=== PATIENT | male | born 1945 | race Caucasian/White ===

== ENCOUNTER → 2018-05-14 12:09 | Outpatient (CLI) | payer MEDICARE, SELFPAY ==
[2018-05-14 13:52] LABS: Prostate Specific Antigen 0.617 ng/mL (0.10-4.00)
== END ==
PROVIDERS: PCP Family Medicine; Visit Provider Radiology Radiation Oncology
DX: C61 Malignant neoplasm of prostate (principal)
CPT/HCPCS: 36415; 84153

== ENCOUNTER → 2018-05-20 10:30 | Outpatient (CLI) | payer MEDICARE, SELFPAY ==
[2018-05-20 10:48] LABS: Hemoglobin 13.8 g/dL (13.5-17.5); Mean Corpuscular HGB Conc 35.3 % (30-36); Mean Corpuscular Hemoglobin 31.1 PG (26-34); Mean Corpuscular Volume 88.1 fL (80-100); Platelet Count 61 X10^3/uL (150-400); Red Blood Cell Count 4.43 X10^6/uL (4.5-5.9); Red Cell Distribution Width 13.9 % (11.6-14.8)
[2018-05-20 10:49] LABS: Add Manual Diff / Slide Review YES; White Blood Cell Count 1.5 X10^3/uL (4.5-11.0)
--- NOTE | 2018-05-20 11:05 | PC.NURSE ---
cv WBC 1.5 reported by Estevan in lab. Triage notified
[2018-05-20 11:08] LABS: Neutrophils Absolute Manual 840 /uL (3000-5900); Ovalocytes 1+; Tear Drop Cells 1+; Total Cells Counted 100
[2018-05-20 11:30] LABS: Alanine Aminotransferase 20 IU/L (21-72); Albumin 3.9 g/dL (3.5-5.0); Albumin Globulin Ratio 1.4 (1.0-2.8); Alkaline Phosphatase 52 U/L (38-126); Aspartate Aminotransferase 16 IU/L (17-59); BUN Creatinine Ratio 22.7 (6-22); Blood Urea Nitrogen 25 mg/dL (9-20); Calcium 9.1 mg/dL (8.4-10.2); Carbon Dioxide 32 mmol/L (22-32); Chloride 101 mmol/L (98-107); Estimated Glomerular Filt Rate > 60.0 mL/min (>60); Globulin 2.8 g/dL (1.7-4.1); Glucose 121 mg/dL (80-110); HEMOLYSIS < 15 (0-50); Lactate Dehydrogenase 377 U/L (313-618); Potassium 4.2 mmol/L (3.4-5.1); Sodium 143 mmol/L (137-145); Total Protein 6.7 g/dL (6.3-8.2)
--- NOTE | 2018-05-20 11:37 | PC.NURSE ---
Critical value WBC of 1.5 noted. Pt has appt with Dr Sanchez on 05/22. This WBC has been within range of his previous WBC's and part of the reason he will be evaluated by Dr Sanchez on .
== END ==
PROVIDERS: PCP Family Medicine; Visit Provider Internal Medicine Hematology & Oncology
DX: C91.40 Hairy cell leukemia not having achieved remission (principal)
CPT/HCPCS: 36415; 80053; 83615; 85025

== ENCOUNTER → 2018-06-05 10:25 | Outpatient (CLI) | payer MEDICARE, SELFPAY ==
[2018-06-05 11:11] LABS: Hematocrit 37.3 % (41-53); Mean Corpuscular HGB Conc 34.8 % (30-36); Mean Corpuscular Hemoglobin 31.1 PG (26-34); Mean Corpuscular Volume 89.4 fL (80-100); Platelet Count 64 X10^3/uL (150-400); Red Blood Cell Count 4.18 X10^6/uL (4.5-5.9); Red Cell Distribution Width 14.5 % (11.6-14.8)
[2018-06-05 11:17] LABS: Alanine Aminotransferase 24 IU/L (21-72); Albumin 3.9 g/dL (3.5-5.0); Albumin Globulin Ratio 1.6 (1.0-2.8); Alkaline Phosphatase 45 U/L (38-126); Aspartate Aminotransferase 15 IU/L (17-59); Bilirubin Total 0.6 mg/dL (0.2-1.3); Blood Urea Nitrogen 20 mg/dL (9-20); Calcium 9.1 mg/dL (8.4-10.2); Carbon Dioxide 32 mmol/L (22-32); Chloride 102 mmol/L (98-107); Estimated Glomerular Filt Rate > 60.0 mL/min (>60); Globulin 2.4 g/dL (1.7-4.1); Glucose 90 mg/dL (80-110); HEMOLYSIS < 15 (0-50); Potassium 3.9 mmol/L (3.4-5.1); Sodium 142 mmol/L (137-145); Total Protein 6.3 g/dL (6.3-8.2)
[2018-06-05 11:26] LABS: Add Manual Diff / Slide Review YES; White Blood Cell Count 1.5 X10^3/uL (4.5-11.0)
[2018-06-05 12:22] LABS: Folate > 20.0 ng/mL (2.76-20.0); Vitamin B12 362 pg/mL (239-931)
[2018-06-05 12:33] LABS: Neutrophils Absolute Manual 810 /uL (3000-5900); Total Cells Counted 100
[2018-06-05 12:34] LABS: RBC Morphology Normal Morphology
--- NOTE | 2018-06-05 14:52 | PC.NURSE ---
Critical WBC called from lab 1.5 .result given to health claims examiner RSL
--- NOTE | 2018-06-05 16:33 | PC.NURSE ---
After reviewing Dr Sanchez's last dictation pt was here for routine labs. He is currently to see Dr Rao on 06/12 for f/u. Currrently WBC is stable @ 1.5 with previous WBC dated 05/20. Anc is down from 840 to 810. Pt has been previously instructed on neutropenic procautions. No new orders at this time
== END ==
PROVIDERS: PCP Family Medicine; Visit Provider Internal Medicine Hematology & Oncology
DX: C91.40 Hairy cell leukemia not having achieved remission (principal)
CPT/HCPCS: 36415; 80053; 82607; 82746; 85025

== ENCOUNTER → 2018-06-16 11:03 | Outpatient (CLI) | payer MEDICARE, SELFPAY ==
[2018-06-16 11:26] LABS: Hematocrit 39.2 % (41-53); Hemoglobin 13.7 g/dL (13.5-17.5); Mean Corpuscular HGB Conc 34.9 % (30-36); Mean Corpuscular Hemoglobin 31.2 PG (26-34); Mean Corpuscular Volume 89.2 fL (80-100); Platelet Count 65 X10^3/uL (150-400); Red Blood Cell Count 4.39 X10^6/uL (4.5-5.9); Red Cell Distribution Width 14.1 % (11.6-14.8)
[2018-06-16 11:27] LABS: Add Manual Diff / Slide Review YES; White Blood Cell Count 1.5 X10^3/uL (4.5-11.0)
[2018-06-16 11:44] LABS: Morphology Comment Normal Morphology; Neutrophils Absolute Manual 840 /uL (3000-5900); Nucleated Red Blood Cells 4 #/Diff; Total Cells Counted 100
[2018-06-16 12:41] LABS: Vitamin B12 349 pg/mL (239-931)
--- NOTE | 2018-06-16 15:32 | PC.NURSE ---
Critical value WBC 1.5 called from lab.This is a stable value for patient -seeing MD on
[2018-06-23 01:41] LABS: Methylmalonic Acid 262 nmol/L (87-318)
== END ==
PROVIDERS: Internal Medicine Hematology & Oncology; PCP Family Medicine; Visit Provider Internal Medicine Hematology & Oncology
DX: C91.40 Hairy cell leukemia not having achieved remission (principal)
CPT/HCPCS: 36415; 82607; 83921; 85025

== ENCOUNTER → 2018-07-03 09:19 | Outpatient (CLI) | payer MEDICARE, SELFPAY ==
[2018-07-03 09:35] LABS: Hematocrit 38.8 % (41-53); Hemoglobin 13.8 g/dL (13.5-17.5); Mean Corpuscular HGB Conc 35.6 % (30-36); Mean Corpuscular Hemoglobin 31.1 PG (26-34); Mean Corpuscular Volume 87.2 fL (80-100); Platelet Count 79 X10^3/uL (150-400); Red Blood Cell Count 4.45 X10^6/uL (4.5-5.9); Red Cell Distribution Width 14.3 % (11.6-14.8)
[2018-07-03 09:36] LABS: Add Manual Diff / Slide Review YES; White Blood Cell Count 1.9 X10^3/uL (4.5-11.0)
[2018-07-03 09:45] LABS: BUN Creatinine Ratio 22.7 (6-22); Blood Urea Nitrogen 25 mg/dL (9-20); Calcium 9.6 mg/dL (8.4-10.2); Carbon Dioxide 32 mmol/L (22-32); Chloride 102 mmol/L (98-107); Estimated Glomerular Filt Rate > 60.0 mL/min (>60); Glucose 122 mg/dL (80-110); HEMOLYSIS < 15 (0-50); Potassium 3.7 mmol/L (3.4-5.1); Sodium 143 mmol/L (137-145); Uric Acid 5.6 mg/dL (3.5-8.5)
[2018-07-03 10:00] LABS: Morphology Comment Normal Morphology; Neutrophils Absolute Manual 1311 /uL (3000-5900); Total Cells Counted 100
== END ==
PROVIDERS: PCP Family Medicine; Visit Provider Internal Medicine Hematology & Oncology
DX: C91.40 Hairy cell leukemia not having achieved remission (principal)
CPT/HCPCS: 36415; 80048; 84550; 85025

== ENCOUNTER 2018-10-22 18:48 | Emergency (ER) | payer MEDICARE, SELFPAY ==
--- NOTE | 2018-10-22 19:00 | DI.CT.S_ITS ---
PROCEDURE: CT HEAD/BRAIN WO CON INDICATIONS: numbness right hand and head is fuzzy TECHNIQUE: Noncontrast 4.5 mm thick angled axial sections acquired from the foramen magnum to the vertex, with coronal and sagittal reformats. For radiation dose reduction, the following was used: automated exposure control, adjustment of mA and/or kV according to patient size. COMPARISON: [facility], CT, HEAD WITHOUT CONTRAST, 09/22/2017, 0:05. FINDINGS: Image quality: Limited by beam hardening artifact related to deep brain stimulator leads. CSF spaces: Basal cisterns are patent. No extra-axial fluid collections. The ventricles are symmetric in size and shape. Brain: No intracranial bleeds or masses. There is cerebral volume loss for age, with resultant ventricular and sulcal prominence. There are periventricular and deep white matter chronic small vessel ischemic changes. Bilateral thalamic stimulators are stable compared to 09/22/2017. There is intracranial internal carotid artery atherosclerosis. Skull and face: Calvarium and visualized facial bones appear intact, without suspicious lesions. Sinuses: Visualized sinuses and mastoids are clear. IMPRESSION: No acute intracranial disease process. Dictated by: Vanita Phan MD, PhD on 10/22/2018 at 19:37 Approved by: Vanita Phan MD, PhD on 10/22/2018 at 19:39
[2018-10-22 19:04] VITALS: BP 202/97; PULSE 86; RESP 20; TEMP 36; O2SAT 97; BMI 25.8
--- NOTE | 2018-10-22 19:08 | ED.NEUROSD ---
HPI - Neuro Symptoms/Deficit General Chief Complaint: Neuro Symptoms/Deficit Stated Complaint: numbness right hand and head is fuzzy Time Seen by Provider: 10/22/18 19:07 Source: patient Mode of arrival: ambulatory Limitations: no limitations History of Present Illness HPI Narrative: Patient is a 73-year-old male with a history of Parkinson's disease and also leukemia here for evaluation of what he describes as tingling on the back of his right hand and also a fuzzy feeling in his head. States that this has been going on throughout the day. No trauma. He does have a stimulator in his brain secondary to his Parkinson's disease. He does not take Parkinson's medications any longer secondary to the stimulator. He does have a history leukemia with issues with platelets in the past needing transfusions. He states his last transfusion was greater than 2 months ago. No other focal neuro deficits except for the tingling the back of his right hand which he states has resolved by the time of my evaluation. Related Data Home Medications Medication Instructions Recorded Confirmed carbidopa ER 50 mg-levodopa 200 mg 1 tab PO PRN PRN 04/08/18 10/09/18 tablet,extended release rutin 450 mg PO QAM 06/19/18 10/09/18 acetaminophen [Tylenol] 325 mg PO Q6H PRN 06/26/18 10/09/18 tamsulosin [Flomax] 0.8 mg PO DAILY 07/31/18 10/09/18 vitamins A,C,T-mtyd-itkvny 1 cap PO DAILY 08/28/18 10/09/18 [PreserVision AREDS] Allergies Allergy/AdvReac Type Severity Reaction Status Date / Time codeine [CODEINE] Allergy Mild NAUSEA Verified 06/26/18 10:00 Review of Systems Constitutional Denies fever(s), Denies headache(s), Denies lethargy, Denies malaise and Denies weakness Eyes Denies change in vision, Denies diplopia and Denies loss of vision ENT Ears, Nose, Mouth, and Throat: Denies vertigo, Denies dizziness, Denies headache(s), Denies disequilibrium and Denies sore throat Cardiovascular Denies chest pain, Denies syncope and Denies dyspnea Respiratory Denies dyspnea Gastrointestinal Gastrointestinal: Denies abdominal pain and Denies nausea Musculoskeletal Denies myalgias, Denies arthralgias and Reports tingling Integumentary/Breasts Denies lesions and Denies rash Neurologic Denies behavioral changes, Denies confusion, Denies vertigo, Denies dizziness, Denies syncope, Denies headache(s), Denies focal weakness, Denies loss of vision, Reports tingling, Denies paresthesias, Reports tremor(s), Denies disequilibrium and Denies weakness Comments: fuzzy sensation in his head Psychiatric Denies behavioral changes and Denies confusion Hematologic/Lymphatic Comments: not on anticoagulation [facility] Medical History Hairy cell leukemia (Acute) Parkinsons disease (Acute) Surgical History History of tonsillectomy Social History Smoking Status: Never smoker Exam Initial Vital Signs Initial Vital Signs: Vital Signs Temperature 96.8 F L 10/22/18 19:04 Pulse Rate 86 10/22/18 19:04 Respiratory Rate 20 10/22/18 19:04 Blood Pressure 202/97 H 10/22/18 19:04 Pulse Oximetry 97 10/22/18 19:04 Const General: cooperative, healthy appearing, comfortable, well developed, well groomed and No acute distress Orientation: alert, awake and oriented x3 HENMT Head: normal to inspection, normocephalic and atraumatic Eyes Pupils: PERRL EOM: EOM intact bilaterally Resp Effort & Inspection: normal respiratory effort Auscultation: clear to auscultation bilaterally Cardio Rate: regular rate Rhythm: regular rhythm GI Inspection: non-distended Palpation: soft Skin Lesions: no lesions Rashes: no rashes Neuro General: alert, awake and oriented x3 Cranial Nerves: CN's II-XI intact bilaterally Cognition: normal cognition Speech: speech normal Motor: muscle tone normal throughout Sensory Exam: no sensory deficits noted Other: no sensory deficits noted in his right hand. Has a resting tremor most noted in his right upper extremity Extrem General: normal to inspection and capillary refill normal Psych Appearance: grossly normal and well kempt Course Orders Ordered: ED Orders 10/22/18 19:00 CT head/brain wo con Stat 10/22/18 19:20 Complete Blood Count AUTO DIFF Stat Comprehensive Metabolic Panel Stat Lipase Stat Partial Thromboplastin Time Stat Prothrombin Time INR Stat Vital Signs - 8 hr 10/22/18 19:04 10/22/18 21:16 Temperature 96.8 F L Pulse Rate 86 84 Respiratory Rate 20 18 Blood Pressure 202/97 H 180/90 H Pulse Oximetry 97 97 MDM - Neuro Symptoms/Deficit Lab Data Attestation: I reviewed the patient's lab results. Result diagrams: 10/22/18 19:20 10/22/18 19:20 Lab Results 10/22/18 10/22/18 10/22/18 Range/Units 19:20 19:20 19:20 WBC 4.2 L (4.5-11.0) X10^3/uL RBC 4.58 (4.5-5.9) X10^6/uL Hgb 13.8 (13.5-17.5) g/dL Hct 39.2 L (41-53) % MCV 85.5 (80-100) fL MCH 30.2 (26-34) PG MCHC 35.3 (30-36) % RDW 13.2 (11.6-14.8) % Plt Count 116 L (150-400) X10^3/uL Neut % (Auto) 69.9 (50-75) % Lymph % (Auto) 17.3 L (25-40) % [place] % (Auto) 8.5 (3-14) % Eos % (Auto) 3.8 (2-4) % Baso % (Auto) 0.5 (0-2) % Neut # (Auto) 3000 (7863-9382) /uL PT 11.7 (10.1-12.7) SECONDS INR 1.1 (0.9-1.3) APTT 29 (26.4-36.2) SECONDS Sodium 143 (137-145) mmol/L Potassium 4.4 (3.4-5.1) mmol/L Chloride 103 (98-107) mmol/L Carbon Dioxide 31 (22-32) mmol/L BUN 25 H (9-20) mg/dL Creatinine 1.00 (0.66-1.25) mg/dL Estimated GFR > 60.0 (>60) mL/min BUN/Creatinine Ratio 25.0 H (6-22) Glucose 98 (80-110) mg/dL Calcium 9.4 (8.4-10.2) mg/dL Total Bilirubin 0.3 (0.2-1.3) mg/dL AST 19 (17-59) IU/L ALT 25 (21-72) IU/L Alkaline Phosphatase 52 (38-126) U/L Total Protein 6.7 (6.3-8.2) g/dL Albumin 4.2 (3.5-5.0) g/dL Globulin 2.5 (1.7-4.1) g/dL Albumin/Globulin Ratio 1.7 (1.0-2.8) Lipase (23-300) U/L // Range/Units 19:20 WBC (4.5-11.0) X10^3/uL RBC (4.5-5.9) X10^6/uL Hgb (13.5-17.5) g/dL Hct (41-53) % MCV (80-100) fL MCH (26-34) PG MCHC (30-36) % RDW (11.6-14.8) % Plt Count (150-400) X10^3/uL Neut % (Auto) (50-75) % Lymph % (Auto) (25-40) % [place] % (Auto) (3-14) % Eos % (Auto) (2-4) % Baso % (Auto) (0-2) % Neut # (Auto) (0376-1647) /uL PT (10.1-12.7) SECONDS INR (0.9-1.3) APTT (26.4-36.2) SECONDS Sodium (137-145) mmol/L Potassium (3.4-5.1) mmol/L Chloride (98-107) mmol/L Carbon Dioxide (22-32) mmol/L BUN (9-20) mg/dL Creatinine (0.66-1.25) mg/dL Estimated GFR (>60) mL/min BUN/Creatinine Ratio (6-22) Glucose (80-110) mg/dL Calcium (8.4-10.2) mg/dL Total Bilirubin (0.2-1.3) mg/dL AST (17-59) IU/L ALT (21-72) IU/L Alkaline Phosphatase (38-126) U/L Total Protein (6.3-8.2) g/dL Albumin (3.5-5.0) g/dL Globulin (1.7-4.1) g/dL Albumin/Globulin Ratio (1.0-2.8) Lipase 80 (23-300) U/L MDM Narrative Medical decision making narrative: patient reports a improvement/resolution of his symptoms prior to and during his stay here in the emergency department. Has his baseline neurologic issues with regard to the Parkinson's disease and tremor most noted in his right upper extremity. His head CT is unremarkable labs unremarkable. Had a focal tingling in the back of his right hand. Low suspicion for CVA or TIA. Discussed all this with the patient and his were at bedside. We did discuss return precautions. hold on further workup for now. he and his both expressed understanding and agreement with plan Discharge Plan Departure Patient Disposition: Home Clinical Impression: Hand paresthesia Discharge Date/Time: 10/22/18 21:17 Interventions: ED Discharge Assessment Last Done: 10/22/18 21:16 Instructions: DI for Numbness/tingling Activity Restrictions/Additional Instructions: keep all of your scheduled medical appointments. Return to the emergency department for any new or worsening symptoms Prescriptions: No Action carbidopa-levodopa 50-200 mg tablet extended release 1 tab PO PRN PRN (Reason: unknown) RF: 0 rutin 500 mg Tablet 450 mg PO QAM RF: 0 acetaminophen [Tylenol] 325 mg Tablet 325 mg PO Q6H PRN (Reason: Pain (Scale Score 1-3)) RF: 0 tamsulosin [Flomax] 0.4 mg capsule 0.8 mg PO DAILY RF: 0 vitamins A,C,U-ulwy-cawhnr [PreserVision AREDS] 14,320-226-200 [id number] Capsule 1 cap PO DAILY RF: 0
[2018-10-22 19:31] LABS: Add Manual Diff / Slide Review NO; Basophils Percent Auto 0.5 % (0-2); Eosinophils Percent Auto 3.8 % (2-4); Hematocrit 39.2 % (41-53); Hemoglobin 13.8 g/dL (13.5-17.5); Lymphocytes Percent Auto 17.3 % (25-40); Mean Corpuscular HGB Conc 35.3 % (30-36); Mean Corpuscular Hemoglobin 30.2 PG (26-34); Mean Corpuscular Volume 85.5 fL (80-100); Monocytes Percent Auto 8.5 % (3-14); Neutrophils Absolute Auto 3000 /uL (3000-5900); Neutrophils Percent Auto 69.9 % (50-75); Platelet Count 116 X10^3/uL (150-400); Red Blood Cell Count 4.58 X10^6/uL (4.5-5.9); Red Cell Distribution Width 13.2 % (11.6-14.8); White Blood Cell Count 4.2 X10^3/uL (4.5-11.0)
--- NOTE | 2018-10-22 19:35 | PC.NURSE ---
pt at rest, seated in chair, reports rt dorsal hand numbness, this resolved withing a few minutes followed by pt describing vague odd in the head feeling, like my brain was numb, he reports this remains but has improved since his arrival to ED. MD Law bedside at time of exam, negative FAST, NIH 0 per provider
[2018-10-22 19:38] LABS: INR 1.1 (0.9-1.3); Prothrombin Time 11.7 SECONDS (10.1-12.7)
[2018-10-22 19:40] LABS: Lipase 80 U/L (23-300); PTT Partial Thromboplastin Tim 29 SECONDS (26.4-36.2)
[2018-10-22 19:42] LABS: Alanine Aminotransferase 25 IU/L (21-72); Albumin 4.2 g/dL (3.5-5.0); Albumin Globulin Ratio 1.7 (1.0-2.8); Alkaline Phosphatase 52 U/L (38-126); Aspartate Aminotransferase 19 IU/L (17-59); Bilirubin Total 0.3 mg/dL (0.2-1.3); Blood Urea Nitrogen 25 mg/dL (9-20); Calcium 9.4 mg/dL (8.4-10.2); Carbon Dioxide 31 mmol/L (22-32); Chloride 103 mmol/L (98-107); Estimated Glomerular Filt Rate > 60.0 mL/min (>60); Globulin 2.5 g/dL (1.7-4.1); Glucose 98 mg/dL (80-110); HEMOLYSIS < 15 (0-50); Potassium 4.4 mmol/L (3.4-5.1); Sodium 143 mmol/L (137-145); Total Protein 6.7 g/dL (6.3-8.2)
[2018-10-22 21:16] VITALS: BP 180/90; PULSE 84; RESP 18; O2SAT 97
== END 2018-10-22 21:17 | disposition home or self-care (01) ==
PROVIDERS: Emergency Provider Emergency Medicine; Family Provider Family Medicine; PCP Family Medicine
DX: R20.2 Paresthesia of skin (principal); G20 Parkinson's disease
CPT/HCPCS: 36591; 70450; 80053; 83690; 85025; 85610; 85730; 99282; 99284; 99291

== ENCOUNTER 2018-11-09 03:46 | Emergency (ER) | payer MEDICARE, OTHER, SELFPAY ==
[2018-11-09 04:02] VITALS: BP 179/95; PULSE 84; RESP 18; TEMP 36.3; O2SAT 96
--- NOTE | 2018-11-09 04:24 | ED.MALEGU ---
HPI - Male Genitourinary General Chief complaint: Urogenital-Male Stated complaint: CATHETER IS BLOCKED Time Seen by Provider: 11/09/18 04:24 Source: patient Mode of arrival: ambulatory Limitations: no limitations History of Present Illness HPI Narrative: The patient underwent a TURP last week, he still has a Elaine and leg bag in place. He has not experienced abdominal or general discomfort. He is concerned that there is significantly less urine in the Elaine than he is used to seeing. There is no blood in the urine, or at the meatus. He denies nausea or vomiting. He had constipation, this is now resolved. He complains of no abdominal discomfort. He has had no fever or chills. Related Data Home Medications Medication Instructions Recorded Confirmed carbidopa ER 50 mg-levodopa 200 mg 1 tab PO PRN PRN 04/08/18 11/07/18 tablet,extended release rutin 450 mg PO QAM 06/19/18 11/07/18 acetaminophen [Tylenol] 325 mg PO Q6H PRN 06/26/18 11/07/18 tamsulosin [Flomax] 0.8 mg PO DAILY 07/31/18 11/07/18 vitamins A,C,B-tbxe-xmwcir 1 cap PO DAILY 08/28/18 11/07/18 [PreserVision AREDS] hydrocodone-acetaminophen 11/09/18 Allergies Allergy/AdvReac Type Severity Reaction Status Date / Time codeine [CODEINE] Allergy Mild NAUSEA Verified 11/09/18 04:06 Review of Systems Constitutional Denies chills, Denies fever(s) and Denies frequent falls ENT Ears, Nose, Mouth, and Throat: Denies dizziness Gastrointestinal Gastrointestinal: Denies abdominal pain, Denies bloating, Denies change in bowel habits, Reports constipation, Denies diarrhea, Denies nausea and Denies vomiting Genitourinary Reports as per HPI, Denies hematuria, Denies penile discharge, Denies scrotal swelling and Denies testicular pain Musculoskeletal Denies numbness and Reports other ( No swelling) Integumentary/Breasts Denies erythema, Denies rash and Reports other ( irritation to the urethral meatus, associated with the Elaine.) Neurologic Denies behavioral changes, Denies confusion, Denies dizziness, Denies frequent falls and Denies numbness Psychiatric Denies behavioral changes and Denies confusion [facility] Medical History Hairy cell leukemia (Acute) Parkinsons disease (Acute) Surgical History S/P TURP (Acute) History of tonsillectomy Social History Smoking Status: Never smoker Exam Initial Vital Signs Initial Vital Signs: Vital Signs Temperature 97.4 F L 11/09/18 04:02 Pulse Rate 84 11/09/18 04:02 Respiratory Rate 18 11/09/18 04:02 Blood Pressure 179/95 H 11/09/18 04:02 Pulse Oximetry 96 11/09/18 04:02 Const General: cooperative and well developed Nutritional Appearance: well nourished Orientation: alert, awake, oriented x3 and not confused GI Inspection: non-distended Palpation: soft, no hepatosplenomegaly, No guarding, No pulsatile mass and No tender Auscultation: normal bowel sounds Penis: normal penis Meatus: no meatla discharge Testes: normal Skin General: no rashes or lesions noted and No petechiae Neuro General: alert, oriented x3 and no focal motor deficits Speech: speech normal Course Course Narrative: The patient only had a small amount of clear yellow fluid in the Elaine bag upon arrival. Bladder scan revealed 105 mL of urine in the bladder. The Elaine was irrigated by the patient's nurse. There seems to have been a proximal obstruction, after irrigation there has been increased urine flow. Orders Ordered: ED Orders 11/09/18 04:45 Urine Culture Stat Urine Microscopic Stat Vital Signs - 8 hr 11/09/18 04:02 Temperature 97.4 F L Pulse Rate 84 Respiratory Rate 18 Blood Pressure 179/95 H Pulse Oximetry 96 MDM - Male Genitourinary Medical Records Attestation: I reviewed the patient's medical records. Lab Data Attestation: I reviewed the patient's lab results. Lab Results 11/09/18 Range/Units 04:45 Urine RBC 30-100/hpf H (0-5/HPF) Urine WBC 1-5/hpf (0-5/HPF) Ur Squamous Epith Cells 0-1 /hpf Calcium Oxalate Crystal Occasional H (None) Urine Bacteria Few (2-10) H (None) Urine Mucus 1+ H (Negative) Ur Culture Indicated? Specimen cultured Micro UA Comment Not Reportable Urine Dip Bedside Urine Glucose Negative Bedside Urine Bilirubin - Negative Bedside Urine Ketone - Negative Urine Specific [place] 1.030 Bedside Urine Occult Blood +++ Bedside Urine Protein ++ 100 Bedside Urine Urobilinogen - Negative Bedside Urine Nitrite - Negative Bedside Urine Leukocytes +/- 15 Esterase Discharge Plan Departure Patient Disposition: Home Clinical Impression: Complication, blocked Elaine catheter Discharge Date/Time: 11/09/18 05:33 Interventions: ED Discharge Assessment Last Done: 11/09/18 05:32 Instructions: How to Care for Your Elaine Catheter -- Male Activity Restrictions/Additional Instructions: Increase your water consumption. Return here as necessary. Follow up with your surgeon next week as scheduled. Prescriptions: No Action carbidopa-levodopa 50-200 mg tablet extended release 1 tab PO PRN PRN (Reason: unknown) RF: 0 rutin 500 mg Tablet 450 mg PO QAM RF: 0 acetaminophen [Tylenol] 325 mg Tablet 325 mg PO Q6H PRN (Reason: Pain (Scale Score 1-3)) RF: 0 tamsulosin [Flomax] 0.4 mg capsule 0.8 mg PO DAILY RF: 0 vitamins A,C,X-xsqv-emfcxh [PreserVision AREDS] 14,320-226-200 [id number]-vm-[id number] Capsule 1 cap PO DAILY RF: 0 hydrocodone-acetaminophen 5-325 mg tablet RF: 0
--- NOTE | 2018-11-09 04:27 | ED_ITS ---
HPI - Male Genitourinary General Chief complaint: Urogenital-Male Stated complaint: CATHETER IS BLOCKED Time Seen by Provider: 11/09/18 04:24 Source: patient Mode of arrival: ambulatory Limitations: no limitations History of Present Illness HPI Narrative: The patient underwent a TURP last week, he still has a Elaine and leg bag in place. He has not experienced abdominal or general discomfort. He is concerned that there is significantly less urine in the Elaine than he is used to seeing. There is no blood in the urine, or at the meatus. He denies nausea or vomiting. He had constipation, this is now resolved. He complains of no abdominal discomfort. He has had no fever or chills. Related Data Home Medications Medication Instructions Recorded Confirmed carbidopa ER 50 mg-levodopa 200 mg 1 tab PO PRN PRN 04/08/18 11/07/18 tablet,extended release rutin 450 mg PO QAM 06/19/18 11/07/18 acetaminophen [Tylenol] 325 mg PO Q6H PRN 06/26/18 11/07/18 tamsulosin [Flomax] 0.8 mg PO DAILY 07/31/18 11/07/18 vitamins A,C,F-cqpd-pgiyhf 1 cap PO DAILY 08/28/18 11/07/18 [PreserVision AREDS] hydrocodone-acetaminophen 11/09/18 Allergies Allergy/AdvReac Type Severity Reaction Status Date / Time codeine [CODEINE] Allergy Mild NAUSEA Verified 11/09/18 04:06 Review of Systems Constitutional Denies chills, Denies fever(s) and Denies frequent falls ENT Ears, Nose, Mouth, and Throat: Denies dizziness Gastrointestinal Gastrointestinal: Denies abdominal pain, Denies bloating, Denies change in bowel habits, Reports constipation, Denies diarrhea, Denies nausea and Denies vomiting Genitourinary Reports as per HPI, Denies hematuria, Denies penile discharge, Denies scrotal swelling and Denies testicular pain Musculoskeletal Denies numbness and Reports other ( No swelling) Integumentary/Breasts Denies erythema, Denies rash and Reports other ( irritation to the urethral meatus, associated with the Elaine.) Neurologic Denies behavioral changes, Denies confusion, Denies dizziness, Denies frequent falls and Denies numbness Psychiatric Denies behavioral changes and Denies confusion [facility] Medical History Hairy cell leukemia (Acute) Parkinsons disease (Acute) Surgical History S/P TURP (Acute) History of tonsillectomy Social History Smoking Status: Never smoker Exam Initial Vital Signs Initial Vital Signs: Vital Signs Temperature 97.4 F L 11/09/18 04:02 Pulse Rate 84 11/09/18 04:02 Respiratory Rate 18 11/09/18 04:02 Blood Pressure 179/95 H 11/09/18 04:02 Pulse Oximetry 96 11/09/18 04:02 Const General: cooperative and well developed Nutritional Appearance: well nourished Orientation: alert, awake, oriented x3 and not confused GI Inspection: non-distended Palpation: soft, no hepatosplenomegaly, No guarding, No pulsatile mass and No tender Auscultation: normal bowel sounds Penis: normal penis Meatus: no meatla discharge Testes: normal Skin General: no rashes or lesions noted and No petechiae Neuro General: alert, oriented x3 and no focal motor deficits Speech: speech normal Course Course Narrative: The patient only had a small amount of clear yellow fluid in the Elaine bag upon arrival. Bladder scan revealed 105 mL of urine in the bladder. The Elaine was irrigated by the patient's nurse. There seems to have been a proximal obstruction, after irrigation there has been increased urine flow. Orders Ordered: ED Orders 11/09/18 04:45 Urine Culture Stat Urine Microscopic Stat Vital Signs - 8 hr 11/09/18 04:02 Temperature 97.4 F L Pulse Rate 84 Respiratory Rate 18 Blood Pressure 179/95 H Pulse Oximetry 96 MDM - Male Genitourinary Medical Records Attestation: I reviewed the patient's medical records. Lab Data Attestation: I reviewed the patient's lab results. Lab Results 11/09/18 Range/Units 04:45 Urine RBC 30-100/hpf H (0-5/HPF) Urine WBC 1-5/hpf (0-5/HPF) Ur Squamous Epith Cells 0-1 /hpf Calcium Oxalate Crystal Occasional H (None) Urine Bacteria Few (2-10) H (None) Urine Mucus 1+ H (Negative) Ur Culture Indicated? Specimen cultured Micro UA Comment Not Reportable Urine Dip Bedside Urine Glucose Negative Bedside Urine Bilirubin - Negative Bedside Urine Ketone - Negative Urine Specific [place] 1.030 Bedside Urine Occult Blood +++ Bedside Urine Protein ++ 100 Bedside Urine Urobilinogen - Negative Bedside Urine Nitrite - Negative Bedside Urine Leukocytes +/- 15 Esterase Discharge Plan Departure Patient Disposition: Home Clinical Impression: Complication, blocked Elaine catheter Discharge Date/Time: 11/09/18 05:33 Interventions: ED Discharge Assessment Last Done: 11/09/18 05:32 Instructions: How to Care for Your Elaine Catheter -- Male Activity Restrictions/Additional Instructions: Increase your water consumption. Return here as necessary. Follow up with your surgeon next week as scheduled. Prescriptions: No Action carbidopa-levodopa 50-200 mg tablet extended release 1 tab PO PRN PRN (Reason: unknown) RF: 0 rutin 500 mg Tablet 450 mg PO QAM RF: 0 acetaminophen [Tylenol] 325 mg Tablet 325 mg PO Q6H PRN (Reason: Pain (Scale Score 1-3)) RF: 0 tamsulosin [Flomax] 0.4 mg capsule 0.8 mg PO DAILY RF: 0 vitamins A,C,W-qvdm-qwhflh [PreserVision AREDS] 14,320-226-200 [id number]-[id number]-[id number] Capsule 1 cap PO DAILY RF: 0 hydrocodone-acetaminophen 5-325 mg tablet RF: 0
--- NOTE | 2018-11-09 05:02 | PC.NURSE ---
PT HAD TURP ON SATURDAY. SINCE THEN HE HAS NOTICED A DECREASING URINE OUTPUT IN NDIAYE BAG. PT WAS CONCERNED THERE WAS A BLOCKAGE. 112ML NOTED ON BLADDER SCANNER. PER ROOR THIS NURSE INSTILLED 50ML IN NDIAYE AND 50 ML RETURNED. PT STATED HE FELT THE SENSATION OF SOMETHING IN MY BLADDER WHEN INFUSING STERILE WATER. NDIAYE APPEARS TO BE INTACT. URINE SAMPLE SENT TO LAB FOR UA. PT DENIES ANY BLADDER DISCOMFORT. PT INSTRUCTED TO INCREASE FLUID INTAKE.
[2018-11-09 05:10] LABS: Bacteria Urine Few (2-10); Calcium Oxalate Crystals Urine Occasional; RBC Urine 30-100/HPF (0-5/HPF); Squamous Epithelial Cell Urine 0-1 /HPF; WBC Urine 1-5/HPF (0-5/HPF)
[2018-11-09 05:11] LABS: Culture Indicated Urine Specimen Cultured; Mucus Urine 1+ (Negative)
[2018-11-09 05:32] VITALS: BP 155/85; PULSE 80; RESP 14; O2SAT 99
== END 2018-11-09 05:33 | disposition home or self-care (01) ==
PROVIDERS: Emergency Provider Emergency Medicine; Family Provider Family Medicine; PCP Family Medicine
DX: T83.091A Other mechanical complication of indwelling urethral catheter, initial encounter (principal)
CPT/HCPCS: 51798; 81003; 81015; 87086

== ENCOUNTER 2018-11-09 19:43 | Emergency (ER) | payer MEDICARE, OTHER, SELFPAY ==
--- NOTE | 2018-11-09 19:56 | ED_ITS ---
HPI - Male Genitourinary <NANCY Griffith - Last Filed: 11/09/18 22:29> General Chief complaint: Urogenital-Male Stated complaint: Cath not draining Time Seen by Provider: 11/09/18 19:53 Source: patient Mode of arrival: ambulatory Limitations: no limitations History of Present Illness HPI Narrative: 73-year-old male with history of prostate cancer that is a nonsmoker recently had a TURP procedure completed here due to complaint that he does not the Elaine catheter that he currently has along with his leg bag is draining well. He was seen for this earlier today for same symptoms. The catheter at that time was irrigated and was draining well no signs of urinary tract infection. He states that he also feels same symptoms as he had earlier today where he does not feel use making as much urine as he normally does. He does state that he saw a small blood clot earlier today. He denies having other than the blood clot blood in his urine. He denies any flank pain. No nausea vomiting no fevers or chills he denies any abdominal pain. Related Data Home Medications Medication Instructions Recorded Confirmed carbidopa ER 50 mg-levodopa 200 mg 1 tab PO PRN PRN 04/08/18 11/07/18 tablet,extended release rutin 450 mg PO QAM 06/19/18 11/07/18 acetaminophen [Tylenol] 325 mg PO Q6H PRN 06/26/18 11/07/18 tamsulosin [Flomax] 0.8 mg PO DAILY 07/31/18 11/07/18 vitamins A,C,T-snsk-wnxesb 1 cap PO DAILY 08/28/18 11/07/18 [PreserVision AREDS] hydrocodone-acetaminophen 11/09/18 Allergies Allergy/AdvReac Type Severity Reaction Status Date / Time codeine [CODEINE] Allergy Mild NAUSEA Verified 11/09/18 04:06 Review of Systems <NANCY Griffith - Last Filed: 11/09/18 22:29> Constitutional Denies chills, Denies fever(s), Denies lethargy and Denies weakness Eyes Denies change in vision, Denies eye discharge, Denies irritation and Denies loss of vision ENT Ears, Nose, Mouth, and Throat: Denies change in voice, Denies neck pain and Denies sore throat Cardiovascular Denies chest pain, Denies irregular heart rhythm, Denies lightheadedness, Denies palpitations, Denies dyspnea, Denies dyspnea on exertion and Denies orthopnea Respiratory Denies cough, Denies dyspnea, Denies dyspnea on exertion and Denies wheezing Gastrointestinal Gastrointestinal: Denies abdominal pain, Denies change in bowel habits, Denies diarrhea, Denies nausea and Denies vomiting Genitourinary Comments: Concern that Elaine catheter is not draining Musculoskeletal Denies neck pain Integumentary/Breasts Denies pruritus, Denies erythema, Denies rash and Denies wounds Neurologic Denies confusion, Denies loss of vision and Denies weakness Psychiatric Denies anxiety, Denies confusion, Denies depression, Denies homicidal ideation and Denies suicidal ideation Endocrine Denies palpitations Hematologic/Lymphatic Denies easy bruising Allergic/Immunologic Denies wheezing Exam <NANCY Griffith - Last Filed: 11/09/18 22:29> Initial Vital Signs Initial Vital Signs: Vital Signs Temperature 97.8 F 11/09/18 19:59 Pulse Rate 75 11/09/18 19:59 Respiratory Rate 18 11/09/18 19:59 Blood Pressure 195/98 H 11/09/18 19:59 Pulse Oximetry 97 11/09/18 19:59 Const General: cooperative and well developed Nutritional Appearance: well nourished Orientation: alert, awake, oriented x3 and not confused [facility] Mouth: oral mucosae normal and moist mucous membranes Eyes Conjunctivae: conjunctivae normal Sclera: sclerae normal Pupils: PERRL EOM: EOM intact bilaterally Resp Effort & Inspection: normal respiratory effort, able to speak in complete sentences, no respiratory distress and no use of accessory muscles Auscultation: clear to auscultation bilaterally, no rales, no rhonchi and no wheezes Cardio Rate: regular rate Rhythm: regular rhythm Heart Sounds: no click, no gallops, no murmurs and no rubs Pulses: normal peripheral pulses GI Inspection: non-distended Palpation: soft, no hepatosplenomegaly, No guarding, No pulsatile mass and No tender Auscultation: normal bowel sounds General: No CVA tenderness Penis: normal penis Meatus: meatus normal Other: Elaine catheter draining clear yellow urine. Skin General: no rashes or lesions noted, No jaundice and No petechiae Neuro General: alert, oriented x3, gait normal and no focal motor deficits Speech: speech normal <Julio Sanchez MD - Last Filed: 11/10/18 00:35> Initial Vital Signs Initial Vital Signs: Vital Signs Temperature 97.8 F 11/09/18 19:59 Pulse Rate 75 11/09/18 19:59 Respiratory Rate 18 11/09/18 19:59 Blood Pressure 195/98 H 11/09/18 19:59 Pulse Oximetry 97 11/09/18 19:59 Course <NANCY Griffith - Last Filed: 11/09/18 22:29> Vital Signs - 8 hr 11/09/18 19:59 11/09/18 20:34 Temperature 97.8 F Pulse Rate 75 77 Respiratory Rate 18 18 Blood Pressure 195/98 H Blood Pressure [Right Arm] 175/82 H Pulse Oximetry 97 97 <Julio Sanchez MD - Last Filed: 11/10/18 00:35> Vital Signs - 8 hr 11/09/18 19:59 11/09/18 20:34 Temperature 97.8 F Pulse Rate 75 77 Respiratory Rate 18 18 Blood Pressure 195/98 H Blood Pressure [Right Arm] 175/82 H Pulse Oximetry 97 97 MDM - Male Genitourinary <NANCY Griffith - Last Filed: 11/09/18 22:29> MDM Narrative Medical decision making narrative: Elaine catheter was irrigated and draining well. Bladder scan shows 46 mL in the bladder. Patient reassured that Elaine catheter is draining well. He has instructed to drink plenty of fluids to keep his urine non concentrated. Follow up with Urology in the next few days as scheduled for re-evaluation. For any worsening symptoms return to the emergency room. Discharge Plan Departure Patient Disposition: Home Clinical Impression: Complication, blocked Elaine catheter Discharge Date/Time: 11/09/18 20:59 Interventions: ED Discharge Assessment Last Done: 11/09/18 20:57 Instructions: How to Care for Your Elaine Catheter -- Male Activity Restrictions/Additional Instructions: Elaine catheter was irrigated and is draining well. Bladder scan shows only 46 mL of fluid inside her bladder indicating that the Elaine catheter is draining well. Drink plenty of fluids to ensure that you are flushing the bladder out and also keep in the urine unconcentrated. Your blood pressure was elevated this evening and also over the last few visits. Recommend checking her blood pressure daily and maintaining a log of the results and bringing this results to her primary care provider for further evaluation for hypertension. Follow up with Urology next couple days as scheduled for re-evaluation. For any worsening symptoms return emergency room. Prescriptions: No Action carbidopa-levodopa 50-200 mg tablet extended release 1 tab PO PRN PRN (Reason: unknown) RF: 0 rutin 500 mg Tablet 450 mg PO QAM RF: 0 acetaminophen [Tylenol] 325 mg Tablet 325 mg PO Q6H PRN (Reason: Pain (Scale Score 1-3)) RF: 0 tamsulosin [Flomax] 0.4 mg capsule 0.8 mg PO DAILY RF: 0 vitamins A,C,H-nluq-eariei [PreserVision AREDS] [id number],320-226-200 [id number] Capsule 1 cap PO DAILY RF: 0 hydrocodone-acetaminophen 5-325 mg tablet RF: 0 Referrals: Layton Kaiser MD [Primary Care Provider] - <Julio Sanchez MD - Last Filed: 11/10/18 00:35> Sign Out Provider Sign Out Attestation: I was present in the ER at the time this patient' s evaluation. I was available for verbal consultation or to see the patient directly if required. I agree with the assessment and treatment plan.
[2018-11-09 19:59] VITALS: BP 195/98; PULSE 75; RESP 18; TEMP 36.6; O2SAT 97
--- NOTE | 2018-11-09 20:15 | PC.NURSE ---
Emptied urine from catheter. Had patient stand. Urine draining in catheter.
--- NOTE | 2018-11-09 20:27 | PC.NURSE ---
Flushed catheter with 60ml of normal saline. No resistance with flushing
[2018-11-09 20:34] VITALS: BP 175/82; PULSE 77; RESP 18; O2SAT 97
== END 2018-11-09 20:59 | disposition home or self-care (01) ==
PROVIDERS: Emergency Provider Nurse Practitioner Family; Family Provider Family Medicine; PCP Family Medicine
DX: T83.091A Other mechanical complication of indwelling urethral catheter, initial encounter (principal)
CPT/HCPCS: 51798; 81003; 81015; 87086; 99283

== ENCOUNTER 2019-02-12 14:32 | Emergency (ER) | payer MEDICARE, OTHER, SELFPAY ==
[2019-02-12 14:40] VITALS: BP 175/88; PULSE 72; RESP 20; TEMP 36.5; O2SAT 98; BMI 25.2
--- NOTE | 2019-02-12 14:43 | DI.RAD.S_ITS ---
PROCEDURE: XR CHEST 1V INDICATIONS: cough TECHNIQUE: One view of the chest was acquired. COMPARISON: [facility], , CHEST 1 VIEW, 12/04/2017, 11:34. FINDINGS: Surgical changes and devices: Neural stimulator with a stable. Lungs and pleura: Lungs are clear. No pleural effusions or pneumothorax. Mediastinum: Mediastinal contours appear normal. Heart size is normal. Bones and chest wall: No suspicious bony lesions. Overlying soft tissues appear unremarkable. IMPRESSION: No acute cardiopulmonary disease process. Dictated by: Vanita Phan MD, PhD on 02/12/2019 at 15:03 Approved by: Vanita Phan MD, PhD on 02/12/2019 at 15:03
[2019-02-12] MEDS: SODIUM CHLORIDE 0.9% 1,000 ML 150 ML IV (14:58)
[2019-02-12 14:59] LABS: Add Manual Diff / Slide Review NO; Basophils Absolute Auto 0 /uL (0-100); Basophils Percent Auto 0.6 % (0-2); Eosinophils Absolute Auto 200 /uL (0-450); Eosinophils Percent Auto 4.1 % (2-4); Hematocrit 40.2 % (41-53); Hemoglobin 14.1 g/dL (13.5-17.5); Lymphocytes Absolute Auto 600 /uL (1100-4500); Lymphocytes Percent Auto 13.8 % (25-40); Mean Corpuscular HGB Conc 35.1 % (30-36); Mean Corpuscular Hemoglobin 30.4 PG (26-34); Mean Corpuscular Volume 86.6 fL (80-100); Monocytes Absolute Auto 500 /uL (0-900); Monocytes Percent Auto 10.3 % (3-14); Neutrophils Absolute Auto 3100 /uL (1500-7000); Neutrophils Percent Auto 71.2 % (50-75); Platelet Count 115 X10^3/uL (150-400); Red Blood Cell Count 4.64 X10^6/uL (4.5-5.9); Red Cell Distribution Width 13.6 % (11.6-14.8); White Blood Cell Count 4.4 X10^3/uL (4.5-11.0)
--- NOTE | 2019-02-12 15:00 | ED_ITS ---
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 They got an EKG over in oncology it read acute AK and he was brought over to the ED for evaluation. He has no chest pain he is feeling any is no shortness of breath no diaphoresis or nausea. He has no known history of coronary artery disease. 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 He does have a nonproductive cough it has been ongoing for 3 weeks. He denies any fever or chills. Related Data Home Medications Medication Instructions Recorded Confirmed carbidopa ER 50 mg-levodopa 200 mg 1 tab PO PRN PRN 04/08/18 02/12/19 tablet,extended release rutin 450 mg PO QAM 06/19/18 02/12/19 acetaminophen [Tylenol] 325 mg PO Q6H PRN 06/26/18 02/12/19 vitamins A,C,G-kvqt-hdfkln 1 cap PO DAILY 08/28/18 02/12/19 [PreserVision AREDS] Allergies Allergy/AdvReac Type Severity Reaction Status Date / Time cefuroxime Allergy Mild rash/ Verified 01/07/19 10:15 itching codeine [CODEINE] Allergy Mild NAUSEA Verified 11/09/18 04:06 clindamycin AdvReac N/V Verified 01/07/19 10:15 Review of Systems Review of Systems ROS Unobtainable: All systems reviewed & are unremarkable except as noted in HPI and below Constitutional Denies chills, Denies fever(s), Denies lethargy and Denies weakness Eyes Denies change in vision, Denies eye discharge, Denies irritation and Denies loss of vision Cardiovascular Denies chest pain, Denies irregular heart rhythm, Denies lightheadedness, Denies palpitations, Denies dyspnea, Denies dyspnea on exertion and Denies orthopnea Respiratory Denies cough, Denies dyspnea, Denies dyspnea on exertion and Denies wheezing Gastrointestinal Gastrointestinal: Denies abdominal pain, Denies change in bowel habits, Denies diarrhea, Denies nausea and Denies vomiting Genitourinary Denies hematuria, Denies flank pain, Denies urinary incontinence and Denies urinary urgency Musculoskeletal Denies back pain, Denies muscle weakness, Denies numbness and Denies tingling Integumentary/Breasts Denies pruritus, Denies erythema, Denies rash and Denies wounds Neurologic Denies loss of vision, Denies numbness, Denies tingling and Denies weakness Endocrine Denies palpitations Allergic/Immunologic Denies wheezing [facility] Social History Smoking Status: Never smoker Exam Initial Vital Signs Initial Vital Signs: Vital Signs Temperature 97.7 F 02/12/19 14:40 Pulse Rate 72 02/12/19 14:40 Respiratory Rate 20 02/12/19 14:40 Blood Pressure 175/88 H 02/12/19 14:40 Pulse Oximetry 98 02/12/19 14:40 GENERAL: Well-appearing, well-nourished and in no acute distress. HEENT: Head atraumatic,EOMI, pupils reactive, face symmetric, moist mucous membranes CARDIOVASCULAR: Regular rate and rhythm without murmurs, rubs or gallops. Brain stimulator left chest RESPIRATORY: Breath sounds equal bilaterally, no wheezes rales or rhonchi. ABDOMEN: Soft, nontender. Normoactive bowel sounds all 4 quadrants. No guarding or rebound. EXTREMITIES: Normal range of motion, no clubbing or edema. Neurovascularly intact NEUROLOGICAL: Alert and oriented x4.Normal gait and speech. Cranial nerves II through XII grossly intact. SKIN: Warm, dry, no laceration, no petechiae, no rashes or lesions. Scores HEART Score Heart Score history: Slightly Suspicious Heart Score EKG: Normal Heart Score Age: > or = 65 years old Heart Score risk factors: No known risk factors Heart Score troponin: < or = to normal limit Heart Score Total: 2 Course Orders Ordered: Discontinued Medications Aspirin (Aspirin Chew) 324 mg PO NOW ONE Stop: 02/12/19 14:44 Last Admin: 02/12/19 14:58 Dose: Not Given Sodium Chloride (Normal Saline 0.9%) 1,000 mls @ 150 mls/hr IV CONT ZEYNEP Last Infusion: 02/12/19 16:07 Dose: 0 mls/hr Admin: 02/12/19 14:58 Dose: 150 mls/hr Vital Signs - 8 hr 02/12/19 14:40 Temperature 97.7 F Pulse Rate 72 Respiratory Rate 20 Blood Pressure 175/88 H Pulse Oximetry 98 MDM - Chest Pain Medical Records Data Attestation: I reviewed the patient's medical records. Lab Data Attestation: I reviewed the patient's lab results. Result diagrams: 02/12/19 14:50 02/12/19 14:50 Lab Results 02/12/19 02/12/19 02/12/19 Range/Units 14:50 14:50 14:50 WBC 4.4 L (4.5-11.0) X10^3/uL RBC 4.64 (4.5-5.9) X10^6/uL Hgb 14.1 (13.5-17.5) g/dL Hct 40.2 L (41-53) % MCV 86.6 (80-100) fL MCH 30.4 (26-34) PG MCHC 35.1 (30-36) % RDW 13.6 (11.6-14.8) % Plt Count 115 L (150-400) X10^3/uL Neut % (Auto) 71.2 (50-75) % Lymph % (Auto) 13.8 L (25-40) % [place] % (Auto) 10.3 (3-14) % Eos % (Auto) 4.1 H (2-4) % Baso % (Auto) 0.6 (0-2) % Neut # (Auto) 3100 (3909-5368) /uL Lymph # (Auto) 600 L (7512-1874) /uL [place] # (Auto) 500 (0-900) /uL Eos # (Auto) 200 (0-450) /uL Baso # (Auto) 0 (0-100) /uL PT 12.2 (10.1-12.7) SECONDS INR 1.1 (0.9-1.3) APTT 27 D (26.4-36.2) SECONDS Sodium 140 (137-145) mmol/L Potassium 4.0 (3.4-5.1) mmol/L Chloride 104 (98-107) mmol/L Carbon Dioxide 28 (22-32) mmol/L BUN 21 H (9-20) mg/dL Creatinine 1.00 (0.66-1.25) mg/dL Estimated GFR > 60.0 (>60) mL/min BUN/Creatinine Ratio 21.0 (6-22) Glucose 97 (80-110) mg/dL Calcium 9.0 (8.4-10.2) mg/dL Total Bilirubin 0.5 (0.2-1.3) mg/dL AST 18 (17-59) IU/L ALT 15 L (21-72) IU/L Alkaline Phosphatase 54 (38-126) U/L Total Creatine Kinase 63 (55-170) U/L CK-MB (CK-2) TNP CK-MB (CK-2) Rel Index TNP Troponin I 0.016 (0.01-0.034) ng/mL Total Protein 6.7 (6.3-8.2) g/dL Albumin 4.0 (3.5-5.0) g/dL Globulin 2.7 (1.7-4.1) g/dL Albumin/Globulin Ratio 1.5 (1.0-2.8) Lipase 61 (23-300) U/L / Range/Units 17:00 WBC (4.5-11.0) X10^3/uL RBC (4.5-5.9) X10^6/uL Hgb (13.5-17.5) g/dL Hct (41-53) % MCV (80-100) fL MCH (26-34) PG MCHC (30-36) % RDW (11.6-14.8) % Plt Count (150-400) X10^3/uL Neut % (Auto) (50-75) % Lymph % (Auto) (25-40) % [place] % (Auto) (3-14) % Eos % (Auto) (2-4) % Baso % (Auto) (0-2) % Neut # (Auto) (1839-3272) /uL Lymph # (Auto) (6244-1826) /uL [place] # (Auto) (0-900) /uL Eos # (Auto) (0-450) /uL Baso # (Auto) (0-100) /uL PT (10.1-12.7) SECONDS INR (0.9-1.3) APTT (26.4-36.2) SECONDS Sodium (137-145) mmol/L Potassium (3.4-5.1) mmol/L Chloride (98-107) mmol/L Carbon Dioxide (22-32) mmol/L BUN (9-20) mg/dL Creatinine (0.66-1.25) mg/dL Estimated GFR (>60) mL/min BUN/Creatinine Ratio (6-22) Glucose (80-110) mg/dL Calcium (8.4-10.2) mg/dL Total Bilirubin (0.2-1.3) mg/dL AST (17-59) IU/L ALT (21-72) IU/L Alkaline Phosphatase (38-126) U/L Total Creatine Kinase (55-170) U/L CK-MB (CK-2) CK-MB (CK-2) Rel Index Troponin I 0.022 (0.01-0.034) ng/mL Total Protein (6.3-8.2) g/dL Albumin (3.5-5.0) g/dL Globulin (1.7-4.1) g/dL Albumin/Globulin Ratio (1.0-2.8) Lipase (23-300) U/L Urine Dip Bedside Urine Glucose Negative Bedside Urine Bilirubin - Negative Bedside Urine Ketone +/- 5 Urine Specific Hyder 1.025 Bedside Urine Occult Blood +/- Bedside Urine pH 6.0 Bedside Urine Protein +/- 15 Bedside Urine Urobilinogen - Negative Bedside Urine Nitrite - Negative Bedside Urine Leukocytes +/- 15 Esterase Imaging Data Chest x-ray: Radiologist's impression: PROCEDURE: XR CHEST 1V INDICATIONS: cough TECHNIQUE: One view of the chest was acquired. COMPARISON: [facility], , CHEST 1 VIEW, 12/04/2017, 11:34. FINDINGS: Surgical changes and devices: Neural stimulator with a stable. Lungs and pleura: Lungs are clear. No pleural effusions or pneumothorax. Mediastinum: Mediastinal contours appear normal. Heart size is normal. Bones and chest wall: No suspicious bony lesions. Overlying soft tissues appear unremarkable. IMPRESSION: No acute cardiopulmonary disease process. Dictated by: Vanita Phan MD, PhD on 02/12/2019 at 15:03 ECG Data Attestation: I personally reviewed and interpreted this ECG as follows: Prior ECG tracings: available for review Interpretation: EKG 1. Normal sinus rhythm rate 69 does some large T-waves in V2 only no ST changes T-wave inversion noted in aVL similar to previous EKGs EK2. Normal sinus rhythm rate [address] changes T-waves remained unchanged in lead V2 EKG 3. Sinus rhythm rate 66 no changes MDM Narrative Medical decision making narrative: Patient has absolutely no chest pain no shortness of breath. Both troponins are negative. he says he did not have a syncopal episode. Oncology notes state that patient had a heart rate of 250 beats per minute which is difficult to believe he has been on the monitor here remained in normal sinus rhythm. He feels ready and able to go home. I discussed with him any further cardiac testing Discharge Plan Departure Patient Disposition: Home Clinical Impression: Fainting Qualifiers: Syncope type: unspecified Qualified Code(s): R55 - Syncope and collapse Discharge Date/Time: 02/12/19 18:15 Interventions: ED Discharge Assessment Last Done: 02/12/19 18:14 Instructions: DI for Syncope in Adults (Fainting) Activity Restrictions/Additional Instructions: *You have been diagnosed with near fainting episode *What to do: Blood work and EKG are reassuring no sign of heart attack today *Continue to take medications as directed *Follow up with your primary care provider in 2-3 days *Return to ER if you should have the chest pain shortness of breath recurrent episode of passing or any new, worsening or concerning symptoms Prescriptions: No Action carbidopa-levodopa 50-200 mg tablet extended release 1 tab PO PRN PRN (Reason: unknown) RF: 0 rutin 500 mg Tablet 450 mg PO QAM RF: 0 acetaminophen [Tylenol] 325 mg Tablet 325 mg PO Q6H PRN (Reason: Pain (Scale Score 1-3)) RF: 0 PreserVision AREDS 14,320-226-200 [id number] Capsule 1 cap PO DAILY RF: 0 Referrals: Layton Kaiser MD [Primary Care Provider] -
[2019-02-12 15:01] VITALS: BP 175/88; PULSE 68; RESP 20; O2SAT 98
[2019-02-12 15:04] LABS: INR 1.1 (0.9-1.3); Prothrombin Time 12.2 SECONDS (10.1-12.7)
--- NOTE | 2019-02-12 15:06 | PC.NURSE ---
Patient states he does not want his blood pressure cuff on. He has removed pulse ox and blood pressure cuff. Pt states he does not want to be here and cannot believe that he is forced to be here. Informed pt that we are checking out his heart because he had an episode that concerned his doctor. Pt advised that we need to do these things for him to ensure he is okay. Pt tells me he does not like needles but was cooperative with care.
[2019-02-12 15:07] LABS: PTT Partial Thromboplastin Tim 27 SECONDS (26.4-36.2)
[2019-02-12 15:15] LABS: Alanine Aminotransferase 15 IU/L (21-72); Albumin Globulin Ratio 1.5 (1.0-2.8); Alkaline Phosphatase 54 U/L (38-126); Aspartate Aminotransferase 18 IU/L (17-59); Bilirubin Total 0.5 mg/dL (0.2-1.3); Blood Urea Nitrogen 21 mg/dL (9-20); Carbon Dioxide 28 mmol/L (22-32); Chloride 104 mmol/L (98-107); Creatine Kinase 63 U/L (55-170); Estimated Glomerular Filt Rate > 60.0 mL/min (>60); Globulin 2.7 g/dL (1.7-4.1); Glucose 97 mg/dL (80-110); HEMOLYSIS < 15 (0-50); Lipase 61 U/L (23-300); Sodium 140 mmol/L (137-145); Total Protein 6.7 g/dL (6.3-8.2)
[2019-02-12 15:26] LABS: Troponin I 0.016 ng/mL (0.01-0.034)
--- NOTE | 2019-02-12 15:39 | PC.NURSE ---
pt refused to wear pulse on finger or bp cuff, will continued to check intermittent.
[2019-02-12 17:37] VITALS: BP 166/94; PULSE 74; RESP 16; O2SAT 98
[2019-02-12 17:37] LABS: Troponin I 0.022 ng/mL (0.01-0.034)
== END 2019-02-12 18:15 | disposition home or self-care (01) ==
PROVIDERS: Emergency Provider Emergency Medicine; Family Provider Family Medicine; PCP Family Medicine
DX: R00.0 Tachycardia, unspecified (principal); R55 Syncope and collapse; C91.40 Hairy cell leukemia not having achieved remission; G20 Parkinson's disease; Z85.46 Personal history of malignant neoplasm of prostate
CPT/HCPCS: 36415; 36591; 71045; 80053; 81003; 82550; 83690; 84484; 85025; 85610; 85730; 93005; 96360; 99215; 99283; 99284

== ENCOUNTER → 2019-02-20 10:12 | Outpatient (CLI) | payer MEDICARE, OTHER, SELFPAY ==
[2019-02-20 12:19] LABS: Cholesterol 205 mg/dL (140-199); HDL Cholesterol 34 mg/dL (40-60); LDL Cholesterol Calculated 147 mg/dL (<100); Triglycerides 120 mg/dL (35-150)
[2019-02-20 12:56] LABS: Thyroid Stimulating Hormone 1.93 uIU/mL (0.47-4.68)
== END ==
PROVIDERS: PCP Family Medicine; Visit Provider Family Medicine
DX: Z12.5 Encounter for screening for malignant neoplasm of prostate (principal); Z13.220 Encounter for screening for lipoid disorders; Z13.29 Encounter for screening for other suspected endocrine disorder
CPT/HCPCS: 36415; 80061; 84443; G0103

== ENCOUNTER → 2019-03-04 12:02 | Outpatient (CLI) | payer MEDICARE, OTHER, SELFPAY ==
--- NOTE | 2019-03-04 12:07 | DI.RAD.S_ITS ---
PROCEDURE: XR FOOT LT MIN 3V INDICATIONS: pain TECHNIQUE: 3 views of the foot were acquired. COMPARISON: None. FINDINGS: Bones: No fractures or dislocations. No suspicious bony lesions. Soft tissues: No tibiotalar joint effusion. Achilles tendon appears normal. 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 Dictated by: Ankit Shepherd M.D. on 03/04/2019 at 12:38 Approved by: Ankit Shepherd M.D. on 03/04/2019 at 12:38
== END ==
PROVIDERS: PCP Family Medicine; Visit Provider Family Medicine
DX: M19.072 Primary osteoarthritis, left ankle and foot (principal)
CPT/HCPCS: 73630

== ENCOUNTER 2019-04-15 23:11 | Emergency (ER) | payer MEDICARE, OTHER, SELFPAY ==
[2019-04-15 23:27] VITALS: BP 200/97; PULSE 75; RESP 15; TEMP 36.4; O2SAT 100
--- NOTE | 2019-04-15 23:51 | DI.RAD.S_ITS ---
PROCEDURE: XR LUMBAR SPINE 2-3V INDICATIONS: Lower back pain after fall TECHNIQUE: 3 views of the lumbar spine were acquired. COMPARISON: None. FINDINGS: Bones: 5 [id number] vertebrae are present. There is normal bony alignment. No acute vertebral body compression fractures. Scalloping of the L2 superior endplate appears chronic. Mild multilevel degenerative disc height loss and endplate spurring. No suspicious bony lesions. Soft tissues: Overlying bowel gas pattern is normal. No suspicious soft tissue calcifications. IMPRESSION: No acute lumbar fractures. Degenerative disc and endplate changes. Chronic appearing scalloping of the L2 superior endplate suggesting an osteoporotic fracture. Dictated by: Aga Soto M.D. on 04/16/2019 at 8:33 Approved by: Aga Soto M.D. on 04/16/2019 at 8:36
--- NOTE | 2019-04-15 23:51 | ED.FALL ---
HPI - Fall General Chief Complaint: Fall Stated Complaint: Fall, Back Pain Time Seen by Provider: 04/15/19 23:42 Source: patient Mode of arrival: ambulatory Limitations: no limitations History of Present Illness HPI Narrative: Patient is a 73-year-old male with history of Parkinson's disease. He does have a stimulator in his brain secondary to this. He is also on carbidopa levodopa. Not on anticoagulation. Patient states that he was in his RV this evening when he tripped over a box. He states that has was falling he ?grazed ?the right side of his head on something. He has no pain in this area. No loss of conscious. He states he did not hit his head on the ground. He states that he landed on his back. Does have some lower back discomfort. Came to the emergency department for evaluation. No other injuries reported from the event Related Data Home Medications Medication Instructions Recorded Confirmed carbidopa ER 50 mg-levodopa 200 mg 1 tab PO PRN PRN 04/08/18 03/04/19 tablet,extended release rutin 450 mg PO QAM 06/19/18 03/04/19 acetaminophen [Tylenol] 325 mg PO Q6H PRN 06/26/18 03/04/19 vitamins A,C,[id number] 1 cap PO DAILY 08/28/18 03/04/19 [PreserVision AREDS] Previous Rx's Medication Instructions Recorded Disabled Parking #1 each 03/05/19 Allergies Allergy/AdvReac Type Severity Reaction Status Date / Time cefuroxime Allergy Mild rash/ Verified 03/04/19 11:08 itching codeine [CODEINE] Allergy Mild NAUSEA Verified 03/04/19 11:08 clindamycin AdvReac N/V Verified 03/04/19 11:08 Review of Systems Constitutional Denies headache(s) ENT Ears, Nose, Mouth, and Throat: Denies headache(s) and Denies neck pain Cardiovascular Denies chest pain and Denies dyspnea Respiratory Denies dyspnea Gastrointestinal Gastrointestinal: Denies abdominal pain, Denies nausea and Denies vomiting Musculoskeletal Reports back pain, Denies muscle weakness and Denies neck pain Integumentary/Breasts Denies rash Neurologic Denies headache(s) Hematologic/Lymphatic Denies easy bleeding and Denies easy bruising Exam Initial Vital Signs Initial Vital Signs: Vital Signs Temperature 97.5 F L 04/15/19 23:27 Pulse Rate 75 04/15/19 23:27 Respiratory Rate 15 04/15/19 23:27 Blood Pressure 200/97 H 04/15/19 23:27 Pulse Oximetry 100 04/15/19 23:27 Const General: cooperative, comfortable, well developed, well groomed and No acute distress Orientation: alert, awake and oriented x3 HENMT Head: normal to inspection and normocephalic Resp Effort & Inspection: normal respiratory effort Auscultation: clear to auscultation bilaterally Cardio Rate: regular rate Rhythm: regular rhythm Skin Lesions: no lesions Rashes: no rashes Neuro Other: Unchanged from baseline Extrem General: normal to inspection and capillary refill normal [facility] Medical History Hairy cell leukemia (Acute) Parkinsons disease (Acute) Social History Smoking Status: Former smoker Course Orders Ordered: ED Orders 04/15/19 23:51 XR lumbar spine 2-3V Stat Vital Signs - 8 hr 04/15/19 23:27 04/16/19 00:34 Temperature 97.5 F L Pulse Rate 75 77 Respiratory Rate 15 Blood Pressure 200/97 H 196/92 H Pulse Oximetry 100 97 MDM - Fall Imaging Data Lumbar spine x-ray: Attestation: I personally reviewed and interpreted this imaging study as follows: My impression: No acute disease No fractures MDM Narrative Medical decision making narrative: Patient did not hit his head. He is not on anticoagulation. Is alert oriented x3. Ambulated in the emergency department. Is at baseline neurologically per his and the patient himself. The x-ray shows no acute fractures. No other injuries reported from the event. Will hold on further workup for now. Discuss the use of nonsteroidal anti-inflammatories. Discussed return precautions. He expressed understanding and agreement with plan. Discharge Plan Departure Patient Disposition: Home Clinical Impression: Back pain Qualifiers: Back pain location: low back pain Chronicity: acute Back pain laterality: midline Sciatica presence: without sciatica Qualified Code(s): M54.5 - Low back pain Fall Qualifiers: Encounter type: initial encounter Qualified Code(s): W19.XXXA - Unspecified fall, initial encounter Discharge Date/Time: 04/16/19 00:35 Interventions: ED Discharge Assessment Last Done: 04/16/19 00:34 Instructions: How to Prevent Falls Activity Restrictions/Additional Instructions: You can take 600 mg of ibuprofen/Motrin/Advil every 8 hours as needed. You can also take 650 mg of Tylenol every 4 hours as needed for pain. Continue all of your other medications. Return to the emergency department for any new or worsening symptoms. Contact her primary doctor for a follow-up. Prescriptions: No Action carbidopa-levodopa 50-200 mg tablet extended release 1 tab PO PRN PRN (Reason: unknown) RF: 0 Disabled Parking .ROUTE .MEDSUPPLY Qty: 1 RF: 0 rutin 500 mg Tablet 450 mg PO QAM RF: 0 acetaminophen [Tylenol] 325 mg Tablet 325 mg PO Q6H PRN (Reason: Pain (Scale Score 1-3)) RF: 0 PreserVision AREDS [id number] Capsule 1 cap PO DAILY RF: 0 Referrals: Layton Kaiser MD [Primary Care Provider] -
[2019-04-16 00:34] VITALS: BP 196/92; PULSE 77; O2SAT 97
== END 2019-04-16 00:35 | disposition home or self-care (01) ==
PROVIDERS: Emergency Provider Emergency Medicine; PCP Family Medicine
DX: M54.5 Low back pain (principal); W19.XXXA Unspecified fall, initial encounter
CPT/HCPCS: 72100; 99282; 99283

== ENCOUNTER 2019-05-24 07:56 | Observation (INO) | payer MEDICARE, OTHER, SELFPAY ==
[2019-05-24] VITALS (14 sets, daily range): BP systolic 157–200; BP diastolic 77–106; PULSE 66–87; RESP 15–28; TEMP 36.2–36.7; O2SAT 92–98; BMI 26.0
--- NOTE | 2019-05-24 08:05 | ED.NEUROSD ---
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 He states it started this morning he feels like his tongue is tingly. He has no weakness no speech difficulty. He has no difficulty swallowing in fact he ate some yogurt. He has no rash noted earlier swelling of the lips. He denies any chest pain no heart palpitations no shortness of breath. Feels like this may be a stroke or heart attack and he wanted to be checked out. Related Data Home Medications Medication Instructions Recorded Confirmed carbidopa ER 50 mg-levodopa 200 mg 1 tab PO PRN PRN 04/08/18 05/01/19 tablet,extended release rutin 450 mg PO QAM 06/19/18 05/01/19 acetaminophen [Tylenol] 325 mg PO Q6H PRN 06/26/18 05/01/19 vitamins A,C,[id number] 1 cap PO DAILY 08/28/18 05/01/19 [PreserVision AREDS] Previous Rx's Medication Instructions Recorded Disabled Parking #1 each 03/05/19 meloxicam 15 mg tablet 15 mg PO DAILY #30 tab 05/01/19 Allergies Allergy/AdvReac Type Severity Reaction Status Date / Time cefuroxime Allergy Mild rash/ Verified 05/01/19 13:50 itching codeine [CODEINE] Allergy Mild NAUSEA Verified 05/01/19 13:50 clindamycin AdvReac N/V Verified 05/01/19 13:50 Review of Systems Review of Systems ROS Unobtainable: All systems reviewed & are unremarkable except as noted in HPI and below Constitutional Denies chills, Denies fever(s), Denies lethargy and Denies weakness ENT Ears, Nose, Mouth, and Throat: Reports as per HPI Cardiovascular Denies chest pain, Denies rapid heart rate, Denies irregular heart rhythm, Denies dyspnea and Denies dyspnea on exertion Respiratory Denies cough, Denies dyspnea, Denies dyspnea on exertion and Denies wheezing Gastrointestinal Gastrointestinal: Denies abdominal pain, Denies change in bowel habits, Denies diarrhea, Denies nausea and Denies vomiting Musculoskeletal Denies back pain, Denies muscle weakness, Denies numbness and Denies tingling Integumentary/Breasts Denies pruritus, Denies erythema, Denies rash and Denies wounds Neurologic Denies confusion, Denies numbness, Denies tingling and Denies weakness Psychiatric Denies anxiety, Denies confusion, Denies depression, Denies homicidal ideation and Denies suicidal ideation Allergic/Immunologic Denies wheezing [facility] Medical History Hairy cell leukemia (Acute) Parkinsons disease (Acute) Surgical History S/P TURP (Acute) History of tonsillectomy Social History household members: spouse Smoking Status: Former smoker alcohol intake: current substance use type: does not use Social History household members: spouse Smoking Status: Former smoker alcohol intake: current substance use type: does not use Exam Initial Vital Signs Initial Vital Signs: Vital Signs Temperature 97.5 F L 05/24/19 08:19 Pulse Rate 78 05/24/19 08:19 Respiratory Rate 20 05/24/19 08:19 Blood Pressure 200/100 H 05/24/19 08:19 Pulse Oximetry 98 05/24/19 08:19 GENERAL: Alert male, no acute distress HEENT: Head atraumatic,EOMI, pupils reactive, CARDIOVASCULAR: Regular rate and rhythm without murmurs, rubs or gallops. RESPIRATORY: Breath sounds equal bilaterally, no wheezes rales or rhonchi. ABDOMEN: Soft, nontender. Normoactive bowel sounds all 4 quadrants. No guarding or rebound. EXTREMITIES: Normal range of motion, no clubbing or edema. Neurovascularly intact NEUROLOGICAL: Alert and oriented x4. Decreased sensation to left side of face. Orange Peel Operator strength equal bilaterally resting tremor SKIN: Warm, dry, no laceration, no petechiae, no rashes or lesions. Scores NIH Stroke Scale Level of Conciousness: Alert, keenly responsive Ask month/age: Answers both questions correctly. Open/close eyes, close hand: Performs both tasks correctly Best gaze horizontal: Normal Visual golden: No visual loss Facial palsy: Normal symetrical movement Left arm drift: No drift for full 10 sec Right arm drift: No drift for full 10 sec Left leg drift: No drift for full 10 sec Right leg drift: No drift for full 10 sec Limb ataxia: Absent Sensory on face/arms/legs: Mild to moderate sensory loss, can tell touch Best language: No aphasia, normal Dysarthria: Normal Extinction or inattention: No abnormality Total NIH Stroke scale score: 1 Course Orders Ordered: ED Orders 05/24/19 08:06 CT head/brain wo con Stat XR chest 1V Stat 05/24/19 08:15 Complete Blood Count AUTO DIFF Stat Comprehensive Metabolic Panel Stat Lipase Stat Troponin & CK Cardiac Panel Stat 05/24/19 09:00 Urine Microscopic Stat 05/24/19 09:13 EKG-12 Lead Stat 05/24/19 15:51 Education, smoking cessation ONGOING 05/24/19 15:52 Consult to Discharge Planning Routine Consult to Physical Therapy Evaluate & Treat 05/24/19 15:54 CT angio head and neck Urgent 05/24/19 15:55 US carotid doppler BI Urgent Acetaminophen (Tylenol) 650 mg PO Q6HR PRN PRN Reason: As Needed for Fever/Mild Pain Hydrocodone Bitart/Acetaminophen ([place] 5/325) 1 tab PO Q4HR PRN PRN Reason: Pain, Moderate (4-6) Al Hydrox/Mg Hydrox/Simethicone (Maalox Plus) 30 ml PO Q6HR PRN PRN Reason: Dyspepsia Aspirin (Aspirin) 325 mg PO DAILY [facility] Bisacodyl (Dulcolax) 10 mg PO DAILY PRN PRN Reason: Constipation Carbidopa/Levodopa (Sinemet Er 50-200 Tab) 1 each PO QID [facility], [facility]1983 Enoxaparin Sodium (Lovenox) 40 mg SUBCUT DAILY [facility], [facility]1983 Sodium Chloride (Normal Saline 0.9%) 1,000 mls @ 150 mls/hr IV CONT ZEYNEP Last Infusion: 05/24/19 13:55 Dose: 0 mls/hr Infusion: 05/24/19 13:08 Dose: 150 mls/hr Admin: 05/24/19 08:28 Dose: 150 mls/hr Lisinopril (Zestril) 20 mg PO BID [facility]1983 Ondansetron HCl (Zofran) 4 mg IV Q8HR PRN PRN Reason: Nausea And Vomiting Discontinued Medications Aspirin (Aspirin Chew) 324 mg PO NOW ONE Stop: 05/24/19 10:38 Last Admin: 05/24/19 10:45 Dose: 324 mg Labetalol HCl (Normodyne) 10 mg IV NOW ONE Stop: 05/24/19 09:21 Last Admin: 05/24/19 09:52 Dose: 10 mg Methylprednisolone (Solu-Medrol 125 Mg Vial) 125 mg IV NOW ONE Stop: 05/24/19 08:07 Last Admin: 05/24/19 08:28 Dose: 125 mg Vital Signs - 8 hr 05/24/19 08:19 05/24/19 09:50 05/24/19 10:00 Temperature 97.5 F L Pulse Rate 78 72 71 Respiratory Rate 20 Blood Pressure 200/100 H Blood Pressure [Right Arm] 200/98 H 190/98 H Pulse Oximetry 98 98 05/24/19 10:12 05/24/19 10:49 05/24/19 11:30 Temperature Pulse Rate 71 71 71 Respiratory Rate 22 15 16 Blood Pressure Blood Pressure [Right Arm] 192/98 H 198/102 H Pulse Oximetry 95 96 05/24/19 12:00 05/24/19 13:08 05/24/19 13:10 Temperature 97.5 F L Pulse Rate 74 66 86 Respiratory Rate 15 17 28 H Blood Pressure 157/101 H Blood Pressure [Right Arm] 162/98 H Pulse Oximetry 96 97 96 05/24/19 13:11 05/24/19 15:57 Temperature 97.5 F L Pulse Rate 71 82 Respiratory Rate 19 20 Blood Pressure 198/106 H 171/87 H Blood Pressure [Right Arm] Pulse Oximetry 98 95 MDM - Neuro Symptoms/Deficit Lab Data Attestation: I reviewed the patient's lab results. Result diagrams: 05/24/19 08:15 05/24/19 08:15 Lab Results 05/24/19 05/24/19 05/24/19 Range/Units 08:15 08:15 09:00 WBC 4.2 L (4.5-11.0) X10^3/uL RBC 4.64 (4.5-5.9) X10^6/uL Hgb 14.2 (13.5-17.5) g/dL Hct 40.0 L (41-53) % MCV 86.3 (80-100) fL MCH 30.7 (26-34) PG MCHC 35.6 (30-36) % RDW 13.7 (11.6-14.8) % Plt Count 129 L (150-400) X10^3/uL Neut % (Auto) 72.1 (50-75) % Lymph % (Auto) 14.6 L (25-40) % [place] % (Auto) 8.1 (3-14) % Eos % (Auto) 4.4 H (2-4) % Baso % (Auto) 0.8 (0-2) % Neut # (Auto) 3100 (6591-8857) /uL Lymph # (Auto) 600 L (4704-3332) /uL [place] # (Auto) 300 (0-900) /uL Eos # (Auto) 200 (0-450) /uL Baso # (Auto) 0 (0-100) /uL Sodium 142 (137-145) mmol/L Potassium 3.6 (3.4-5.1) mmol/L Chloride 103 (98-107) mmol/L Carbon Dioxide 29 (22-32) mmol/L BUN 19 (9-20) mg/dL Creatinine 0.90 (0.66-1.25) mg/dL Estimated GFR > 60.0 (>60) mL/min BUN/Creatinine Ratio 21.1 (6-22) Glucose 98 (80-110) mg/dL Calcium 9.4 (8.4-10.2) mg/dL Total Bilirubin 0.6 (0.2-1.3) mg/dL AST 14 L (17-59) IU/L ALT < 6 L (21-72) IU/L Alkaline Phosphatase 93 (38-126) U/L Total Creatine Kinase 44 L (55-170) U/L CK-MB (CK-2) TNP CK-MB (CK-2) Rel Index TNP Troponin I 0.017 (0.01-0.034) ng/mL Total Protein 6.8 (6.3-8.2) g/dL Albumin 4.1 (3.5-5.0) g/dL Globulin 2.7 (1.7-4.1) g/dL Albumin/Globulin Ratio 1.5 (1.0-2.8) Lipase 68 (23-300) U/L Urine RBC 1-5/hpf D (0-5/HPF) Urine WBC 1-5/hpf (0-5/HPF) Ur Squamous Epith Cells 0-1 /hpf (0-5/HPF) Urine Bacteria Few (2-10) H (None) Urine Mucus 1+ H (Negative) Ur Culture Indicated? Cult not indicated Urine Dip Bedside Urine Glucose Negative Bedside Urine Bilirubin - Negative Bedside Urine Ketone - Negative Urine Specific Levasy 1.020 Bedside Urine Occult Blood +/- Bedside Urine pH 6.0 Bedside Urine Protein + 30 Bedside Urine Urobilinogen - Negative Bedside Urine Nitrite - Negative Bedside Urine Leukocytes - Negative Esterase ECG Data Attestation: I personally reviewed and interpreted this ECG as follows: Prior ECG tracings: available for review Interpretation: Normal sinus rhythm rate [address] changes no T-wave inversions similar to previous EKGs MDM Narrative Medical decision making narrative: Patient really complains of more tingling on the left side of his face now. His blood pressure is noted to be quite elevated which is concerning. Numbness of tongue possible allergic reaction he was given a dose of steroids. However he has no rash or itching no swelling of the airway. I think this seems to be less likely. Dr. Lopez, agrees with observation Discharge Plan Departure Patient Disposition: Admitted as Observation Clinical Impression: Brain TIA Hypertension Qualifiers: Hypertension type: unspecified Qualified Code(s): I10 - Essential (primary) hypertension Discharge Date/Time: 05/24/19 13:12 Interventions: ED Discharge Assessment Last Done: 05/24/19 13:11 Admit Date/Time: 05/24/19 10:39 Admit Provider: Romel Lopez
--- NOTE | 2019-05-24 08:06 | DI.CT.S_ITS ---
PROCEDURE: CT HEAD/BRAIN WO CON INDICATIONS: difficulty with speech TECHNIQUE: Noncontrast 4.5 mm thick angled axial sections acquired from the foramen magnum to the vertex, with coronal and sagittal reformats. For radiation dose reduction, the following was used: automated exposure control, adjustment of mA and/or kV according to patient size. COMPARISON: [facility], CT, CT HEAD/BRAIN WO CON, 10/22/2018, 19:03. FINDINGS: Image quality: Diagnostic. CSF spaces: Basal cisterns are patent. No extra-axial fluid collections. Ventricles are mildly prominent with mild parenchymal volume loss. Brain: No midline shift. No intracranial masses or hemorrhage. Alvarez-white matter interface is normal. Subtle areas of low attenuation are identified within the periventricular and deep white matter of the supratentorial brain. Metallic leads are identified extending through the anterior bilateral frontal regions to the level of the superior cerebellar peduncles bilaterally. These lesions are unchanged since the prior study. Skull and face: Calvarium and visualized facial bones are intact, without suspicious lesions. Sinuses: Visualized sinuses and mastoids are clear. IMPRESSION: 1. No acute intracranial hemorrhage. 2. Mild chronic small vessel ischemic changes and parenchymal volume loss. 3. Brain stimulator leads are unchanged since the prior study. Dictated by: Lance Mahajan M.D. on 05/24/2019 at 8:29 Approved by: Lance Mahajan M.D. on 05/24/2019 at 8:32
--- NOTE | 2019-05-24 08:06 | DI.RAD.S_ITS ---
PROCEDURE: XR CHEST 1V INDICATIONS: chest pain TECHNIQUE: One view of the chest was acquired. COMPARISON: [facility], , XR CHEST 1V, 02/12/2019, 14:49. FINDINGS: Surgical changes and devices: An electronic apparatus overlying the left chest is again evident with leads extending towards the head. Lungs and pleura: Lungs are clear. No pleural effusions or pneumothorax. Mediastinum: Mediastinal contours appear normal. Heart size is normal. Bones and chest wall: No suspicious bony lesions. Overlying soft tissues appear unremarkable. IMPRESSION: Stable chest. No acute cardiopulmonary process is suspected. Dictated by: Lance Mahajan M.D. on 05/24/2019 at 8:34 Approved by: Lance Mahajan M.D. on 05/24/2019 at 8:35
--- NOTE | 2019-05-24 08:11 | ED_ITS ---
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 He states it started this morning he feels like his tongue is tingly. He has no weakness no speech di fficulty. He has no difficulty swallowing in fact he ate some yogurt. He has no rash noted earlier swelling of the lips. He denies any chest pain no heart palpitations no shortness of breath. Feels like this may be a stroke or heart attack and he wanted to be checked out. Related Data Home Medications Medication Instructions Recorded Confirmed carbidopa ER 50 mg-levodopa 200 mg 1 tab PO PRN PRN 04/08/18 05/01/19 tablet,extended release rutin 450 mg PO QAM 06/19/18 05/01/19 acetaminophen [Tylenol] 325 mg PO Q6H PRN 06/26/18 05/01/19 vitamins A,C,T-[id number]-[id number] 1 cap PO DAILY 08/28/18 05/01/19 [PreserVision AREDS] Previous Rx's Medication Instructions Recorded Disabled Parking #1 each 03/05/19 meloxicam 15 mg tablet 15 mg PO DAILY #30 tab 05/01/19 Allergies Allergy/AdvReac Type Severity Reaction Status Date / Time cefuroxime Allergy Mild rash/ Verified 05/01/19 13:50 itching codeine [CODEINE] Allergy Mild NAUSEA Verified 05/01/19 13:50 clindamycin AdvReac N/V Verified 05/01/19 13:50 Review of Systems Review of Systems ROS Unobtainable: All systems reviewed & are unremarkable except as noted in HPI and below Constitutional Denies chills, Denies fever(s), Denies lethargy and Denies weakness ENT Ears, Nose, Mouth, and Throat: Reports as per HPI Cardiovascular Denies chest pain, Denies rapid heart rate, Denies irregular heart rhythm, Denies dyspnea and Denies dyspnea on exertion Respiratory Denies cough, Denies dyspnea, Denies dyspnea on exertion and Denies wheezing Gastrointestinal Gastrointestinal: Denies abdominal pain, Denies change in bowel habits, Denies diarrhea, Denies nausea and Denies vomiting Musculoskeletal Denies back pain, Denies muscle weakness, Denies numbness and Denies tingling Integumentary/Breasts Denies pruritus, Denies erythema, Denies rash and Denies wounds Neurologic Denies confusion, Denies numbness, Denies tingling and Denies weakness Psychiatric Denies anxiety, Denies confusion, Denies depression, Denies homicidal ideation and Denies suicidal ideation Allergic/Immunologic Denies wheezing [facility] Medical History Hairy cell leukemia (Acute) Parkinsons disease (Acute) Surgical History S/P TURP (Acute) History of tonsillectomy Social History household members: spouse Smoking Status: Former smoker alcohol intake: current substance use type: does not use Social History household members: spouse Smoking Status: Former smoker alcohol intake: current substance use type: does not use Exam Initial Vital Signs Initial Vital Signs: Vital Signs Temperature 97.5 F L 05/24/19 08:19 Pulse Rate 78 05/24/19 08:19 Respiratory Rate 20 05/24/19 08:19 Blood Pressure 200/100 H 05/24/19 08:19 Pulse Oximetry 98 05/24/19 08:19 GENERAL: Alert male, no acute distress HEENT: Head atraumatic,EOMI, pupils reactive, CARDIOVASCULAR: Regular rate and rhythm without murmurs, rubs or gallops. RESPIRATORY: Breath sounds equal bilaterally, no wheezes rales or rhonchi. ABDOMEN: Soft, nontender. Normoactive bowel sounds all 4 quadrants. No guarding or rebound. EXTREMITIES: Normal range of motion, no clubbing or edema. Neurovascularly intact NEUROLOGICAL: Alert and oriented x4. Decreased sensation to left side of face. Test Analyst strength equal bilaterally resting tremor SKIN: Warm, dry, no laceration, no petechiae, no rashes or lesions. Scores NIH Stroke Scale Level of Conciousness: Alert, keenly responsive Ask month/age: Answers both questions correctly. Open/close eyes, close hand: Performs both tasks correctly Best gaze horizontal: Normal Visual golden: No visual loss Facial palsy: Normal symetrical movement Left arm drift: No drift for full 10 sec Right arm drift: No drift for full 10 sec Left leg drift: No drift for full 10 sec Right leg drift: No drift for full 10 sec Limb ataxia: Absent Sensory on face/arms/legs: Mild to moderate sensory loss, can tell touch Best language: No aphasia, normal Dysarthria: Normal Extinction or inattention: No abnormality Total NIH Stroke scale score: 1 Course Orders Ordered: ED Orders 05/24/19 08:06 CT head/brain wo con Stat XR chest 1V Stat 05/24/19 08:15 Complete Blood Count AUTO DIFF Stat Comprehensive Metabolic Panel Stat Lipase Stat Troponin & CK Cardiac Panel Stat 05/24/19 09:00 Urine Microscopic Stat 05/24/19 09:13 EKG-12 Lead Stat 05/24/19 15:51 Education, smoking cessation ONGOING 05/24/19 15:52 Consult to Discharge Planning Routine Consult to Physical Therapy Evaluate & Treat 05/24/19 15:54 CT angio head and neck Urgent 05/24/19 15:55 US carotid doppler BI Urgent Acetaminophen (Tylenol) 650 mg PO Q6HR PRN PRN Reason: As Needed for Fever/Mild Pain Hydrocodone Bitart/Acetaminophen ([place] 5/325) 1 tab PO Q4HR PRN PRN Reason: Pain, Moderate (4-6) Al Hydrox/Mg Hydrox/Simethicone (Maalox Plus) 30 ml PO Q6HR PRN PRN Reason: Dyspepsia Aspirin (Aspirin) 325 mg PO DAILY [facility] Bisacodyl (Dulcolax) 10 mg PO DAILY PRN PRN Reason: Constipation Carbidopa/Levodopa (Sinemet Er 50-200 Tab) 1 each PO QID [facility] Enoxaparin Sodium (Lovenox) 40 mg SUBCUT DAILY [facility] Sodium Chloride (Normal Saline 0.9%) 1,000 mls @ 150 mls/hr IV CONT ZEYNEP Last Infusion: 05/24/19 13:55 Dose: 0 mls/hr Infusion: 05/24/19 13:08 Dose: 150 mls/hr Admin: 05/24/19 08:28 Dose: 150 mls/hr Lisinopril (Zestril) 20 mg PO BID ZEYNEP Ondansetron HCl (Zofran) 4 mg IV Q8HR PRN PRN Reason: Nausea And Vomiting Discontinued Medications Aspirin (Aspirin Chew) 324 mg PO NOW ONE Stop: 05/24/19 10:38 Last Admin: 05/24/19 10:45 Dose: 324 mg Labetalol HCl (Normodyne) 10 mg IV NOW ONE Stop: 05/24/19 09:21 Last Admin: 05/24/19 09:52 Dose: 10 mg Methylprednisolone (Solu-Medrol 125 Mg Vial) 125 mg IV NOW ONE Stop: 05/24/19 08:07 Last Admin: 05/24/19 08:28 Dose: 125 mg Vital Signs - 8 hr 05/24/19 08:19 05/24/19 09:50 05/24/19 10:00 Temperature 97.5 F L Pulse Rate 78 72 71 Respiratory Rate 20 Blood Pressure 200/100 H Blood Pressure [Right Arm] 200/98 H 190/98 H Pulse Oximetry 98 98 05/24/19 10:12 05/24/19 10:49 05/24/19 11:30 Temperature Pulse Rate 71 71 71 Respiratory Rate 22 15 16 Blood Pressure Blood Pressure [Right Arm] 192/98 H 198/102 H Pulse Oximetry 95 96 05/24/19 12:00 05/24/19 13:08 05/24/19 13:10 Temperature 97.5 F L Pulse Rate 74 66 86 Respiratory Rate 15 17 28 H Blood Pressure 157/101 H Blood Pressure [Right Arm] 162/98 H Pulse Oximetry 96 97 96 05/24/19 13:11 05/24/19 15:57 Temperature 97.5 F L Pulse Rate 71 82 Respiratory Rate 19 20 Blood Pressure 198/106 H 171/87 H Blood Pressure [Right Arm] Pulse Oximetry 98 95 MDM - Neuro Symptoms/Deficit Lab Data Attestation: I reviewed the patient's lab results. Result diagrams: 05/24/19 08:15 05/24/19 08:15 Lab Results 05/24/19 05/24/19 05/24/19 Range/Units 08:15 08:15 09:00 WBC 4.2 L (4.5-11.0) X10^3/uL RBC 4.64 (4.5-5.9) X10^6/uL Hgb 14.2 (13.5-17.5) g/dL Hct 40.0 L (41-53) % MCV 86.3 (80-100) fL MCH 30.7 (26-34) PG MCHC 35.6 (30-36) % RDW 13.7 (11.6-14.8) % Plt Count 129 L (150-400) X10^3/uL Neut % (Auto) 72.1 (50-75) % Lymph % (Auto) 14.6 L (25-40) % [place] % (Auto) 8.1 (3-14) % Eos % (Auto) 4.4 H (2-4) % Baso % (Auto) 0.8 (0-2) % Neut # (Auto) 3100 (4653-0841) /uL Lymph # (Auto) 600 L (5714-6745) /uL [place] # (Auto) 300 (0-900) /uL Eos # (Auto) 200 (0-450) /uL Baso # (Auto) 0 (0-100) /uL Sodium 142 (137-145) mmol/L Potassium 3.6 (3.4-5.1) mmol/L Chloride 103 (98-107) mmol/L Carbon Dioxide 29 (22-32) mmol/L BUN 19 (9-20) mg/dL Creatinine 0.90 (0.66-1.25) mg/dL Estimated GFR > 60.0 (>60) mL/min BUN/Creatinine Ratio 21.1 (6-22) Glucose 98 (80-110) mg/dL Calcium 9.4 (8.4-10.2) mg/dL Total Bilirubin 0.6 (0.2-1.3) mg/dL AST 14 L (17-59) IU/L ALT < 6 L (21-72) IU/L Alkaline Phosphatase 93 (38-126) U/L Total Creatine Kinase 44 L (55-170) U/L CK-MB (CK-2) TNP CK-MB (CK-2) Rel Index TNP Troponin I 0.017 (0.01-0.034) ng/mL Total Protein 6.8 (6.3-8.2) g/dL Albumin 4.1 (3.5-5.0) g/dL Globulin 2.7 (1.7-4.1) g/dL Albumin/Globulin Ratio 1.5 (1.0-2.8) Lipase 68 (23-300) U/L Urine RBC 1-5/hpf D (0-5/HPF) Urine WBC 1-5/hpf (0-5/HPF) Ur Squamous Epith Cells 0-1 /hpf (0-5/HPF) Urine Bacteria Few (2-10) H (None) Urine Mucus 1+ H (Negative) Ur Culture Indicated? Cult not indicated Urine Dip Bedside Urine Glucose Negative Bedside Urine Bilirubin - Negative Bedside Urine Ketone - Negative Urine Specific [place] 1.020 Bedside Urine Occult Blood +/- Bedside Urine pH 6.0 Bedside Urine Protein + 30 Bedside Urine Urobilinogen - Negative Bedside Urine Nitrite - Negative Bedside Urine Leukocytes - Negative Esterase ECG Data Attestation: I personally reviewed and interpreted this ECG as follows: Prior ECG tracings: available for review Interpretation: Normal sinus rhythm rate [address] changes no T-wave inversions similar to previous EKGs MDM Narrative Medical decision making narrative: Patient really complains of more tingling on the left side of his face now. His blood pressure is noted to be quite elevated which is concerning. Numbness of tongue possible allergic reaction he was given a dose of steroids. However he has no rash or itching no swelling of the airway. I think this seems to be less likely. Dr. Lopez, agrees with observation Discharge Plan Departure Patient Disposition: Admitted as Observation Clinical Impression: Brain TIA Hypertension Qualifiers: Hypertension type: unspecified Qualified Code(s): I10 - Essential (primary) hypertension Discharge Date/Time: 05/24/19 13:12 Interventions: ED Discharge Assessment Last Done: 05/24/19 13:11 Admit Date/Time: 05/24/19 10:39 Admit Provider: Romel Lopez
[2019-05-24 08:25] LABS: Add Manual Diff / Slide Review NO; Basophils Absolute Auto 0 /uL (0-100); Basophils Percent Auto 0.8 % (0-2); Eosinophils Absolute Auto 200 /uL (0-450); Eosinophils Percent Auto 4.4 % (2-4); Hemoglobin 14.2 g/dL (13.5-17.5); Lymphocytes Absolute Auto 600 /uL (1100-4500); Lymphocytes Percent Auto 14.6 % (25-40); Mean Corpuscular HGB Conc 35.6 % (30-36); Mean Corpuscular Hemoglobin 30.7 PG (26-34); Mean Corpuscular Volume 86.3 fL (80-100); Monocytes Absolute Auto 300 /uL (0-900); Monocytes Percent Auto 8.1 % (3-14); Neutrophils Absolute Auto 3100 /uL (1500-7000); Neutrophils Percent Auto 72.1 % (50-75); Platelet Count 129 X10^3/uL (150-400); Red Blood Cell Count 4.64 X10^6/uL (4.5-5.9); Red Cell Distribution Width 13.7 % (11.6-14.8); White Blood Cell Count 4.2 X10^3/uL (4.5-11.0)
[2019-05-24] MEDS: methylPREDNISolone 125 MG/2 ML VIAL IV (08:28)
[2019-05-24] MEDS: SODIUM CHLORIDE 0.9% 1,000 ML 150 ML IV (08:28)
[2019-05-24 08:35] LABS: Albumin 4.1 g/dL (3.5-5.0); Albumin Globulin Ratio 1.5 (1.0-2.8); Alkaline Phosphatase 93 U/L (38-126); Aspartate Aminotransferase 14 IU/L (17-59); BUN Creatinine Ratio 21.1 (6-22); Bilirubin Total 0.6 mg/dL (0.2-1.3); Blood Urea Nitrogen 19 mg/dL (9-20); Calcium 9.4 mg/dL (8.4-10.2); Carbon Dioxide 29 mmol/L (22-32); Chloride 103 mmol/L (98-107); Creatine Kinase 44 U/L (55-170); Estimated Glomerular Filt Rate > 60.0 mL/min (>60); Globulin 2.7 g/dL (1.7-4.1); Glucose 98 mg/dL (80-110); HEMOLYSIS < 15 (0-50); Lipase 68 U/L (23-300); Potassium 3.6 mmol/L (3.4-5.1); Sodium 142 mmol/L (137-145); Total Protein 6.8 g/dL (6.3-8.2)
[2019-05-24 08:47] LABS: Troponin I 0.017 ng/mL (0.01-0.034)
[2019-05-24 08:50] LABS: Alanine Aminotransferase < 6 IU/L (21-72)
[2019-05-24 09:39] LABS: RBC Urine 1-5/HPF (0-5/HPF); WBC Urine 1-5/HPF (0-5/HPF)
[2019-05-24 09:40] LABS: Bacteria Urine Few (2-10); Culture Indicated Urine Cult Not Indicated; Mucus Urine 1+ (Negative); Squamous Epithelial Cell Urine 0-1 /HPF (0-5/HPF)
--- NOTE | 2019-05-24 09:48 | PC.NURSE ---
with 4 pts cane.
[2019-05-24] MEDS: LABETALOL 100 MG/20ML MDV 10 MG IV (09:52)
[2019-05-24] MEDS: ASPIRIN 81 MG TAB 324 MG PO (10:45)
--- NOTE | 2019-05-24 13:33 | PC.NURSE ---
Day shift: On unit from ED at approx 1330. Oriented to room and call light. BP 159/101 at this time. Other vitals WNL. Parkinsons for 18 years. HAs implanted device left upper chest. Has visible mild tremors BLUE's. Uses cane to ambulate. Is ambulatory. Recent fall so HFR. Family in room for support.
--- NOTE | 2019-05-24 15:42 | PM.HP.1 ---
History of Present Illness Date Patient Seen: 05/24/19 Time Patient Seen: 15:00 Chief complaint: thinks he is having heart attack or attack Narrative: 73-year-old patient of Dr. Kaiser. Patient has a history of Parkinson's hairy cell leukemia TIA and high blood pressure. He comes in concerning that he may have had a heart attack or a stroke. His symptoms are as followed. He says 1 week ago he had sudden onset of numbness in his tongue almost like it was tied in a knot. He did have slurring of speech or difficulty with words he just felt like his tongue went numb. Said he was hoping it would get better after he woke up which it did not. He took 2 baby aspirin and a little later the symptoms went away. He had similar symptoms today and they did not go away and he became concerned he was having a heart attack or stroke. He presented to the emergency department because he heard numbness means maybe or having 1. Patient states he has a numb spot on his right arm that comes and goes and various other a sundry numb area as. Patient does not describe any recent symptoms with worsening of his gait blurry vision decreased strength in his extremities difficulty with speech or thought. Patient has Parkinson's and is a reliable historian. Patient History Medical History Hairy cell leukemia (Acute) Parkinsons disease (Acute) Surgical History S/P TURP (Acute) History of tonsillectomy Social History household members: spouse Smoking Status: Former smoker alcohol intake: current substance use type: does not use Family & Social History Social History: household members spouse Prior Living Arrangements House Safety & Behavioral: Feels Safe in Current Yes Environment Been Physically Hurt or No Threatened By a Person Suicidal Ideation Description None Suicide Plan Description No Plan Tobacco & Substance use: Smoking Status Former smoker alcohol intake current alcohol intake frequency holiday/special occasion Substance Use Type does not use Meds Home Medications Medication Instructions Recorded Confirmed Type carbidopa ER 50 mg-levodopa 200 mg 1 tab PO PRN PRN 04/08/18 05/01/19 History tablet,extended release rutin 450 mg PO QAM 06/19/18 05/01/19 History acetaminophen [Tylenol] 325 mg PO Q6H PRN 06/26/18 05/01/19 History vitamins A,C,Y-ujdx-ulmwme 1 cap PO DAILY 08/28/18 05/01/19 History [PreserVision AREDS] Disabled Parking #1 each 03/05/19 05/01/19 Rx meloxicam 15 mg tablet 15 mg PO DAILY #30 tab 05/01/19 Rx Allergies Allergy/AdvReac Type Severity Reaction Status Date / Time cefuroxime Allergy Mild rash/ Verified 05/01/19 13:50 itching codeine [CODEINE] Allergy Mild NAUSEA Verified 05/01/19 13:50 clindamycin AdvReac N/V Verified 05/01/19 13:50 Exam Narrative Exam Narrative: Gen.: Alert no apparent distress has resting tremor HEENT: PERRLA oral mucosa is moist neck is supple Respiratory: normal respiratory effort lungs are clear Abdomen: soft nontender no rebound or guarding Extremities: full range of motion mild tremor resting of his upper and lower extremity Neurologic: patient has rigidity cogwheel. Resting tremor. No focal neurological cranial nerve deficits. Patient has strength 3/5 in both extremities equal and symmetric Objective Imaging CT scan - head: Radiologist's impression: [place] [address] CT Scan Report Signed Patient: Olu Rivas R#: [id number] : 7Acct:[id number] Age/Sex: 73 / MDate of Service: 05/24/19 Loc: ED Accession Number: [id number] Procedure: CT head/brain wo con Ordering Provider: Ernestina Rudolph D.O. PROCEDURE: CT HEAD/BRAIN WO CON INDICATIONS: difficulty with speech TECHNIQUE: Noncontrast 4.5 mm thick angled axial sections acquired from the foramen magnum to the vertex, with coronal and sagittal reformats. For radiation dose reduction, the following was used: automated exposure control, adjustment of mA and/or kV according to patient size. COMPARISON: [facility], CT, CT HEAD/BRAIN WO CON, 10/22/2018, 19:03. FINDINGS: Image quality: Diagnostic. CSF spaces: Basal cisterns are patent. No extra-axial fluid collections. Ventricles are mildly prominent with mild parenchymal volume loss. Brain: No midline shift. No intracranial masses or hemorrhage. Alvarez-white matter interface is normal. Subtle areas of low attenuation are identified within the periventricular and deep white matter of the supratentorial brain. Metallic leads are identified extending through the anterior bilateral frontal regions to the level of the superior cerebellar peduncles bilaterally. These lesions are unchanged since the prior study. Skull and face: Calvarium and visualized facial bones are intact, without suspicious lesions. Sinuses: Visualized sinuses and mastoids are clear. IMPRESSION: 1. No acute intracranial hemorrhage. 2. Mild chronic small vessel ischemic changes and parenchymal volume loss. 3. Brain stimulator leads are unchanged since the prior study. [address] [address] XRay Report Signed Patient: Olu Rivas VMR#: [id number] : [id number]:[id number] Age/Sex: 73 / MDate of Service: 05/24/19 Loc: ED Accession Number: [id number] Procedure: XR chest 1V Ordering Provider: Ernestina Rudolph D.O. PROCEDURE: XR CHEST 1V INDICATIONS: chest pain TECHNIQUE: One view of the chest was acquired. COMPARISON: [facility], , XR CHEST 1V, 02/12/2019, 14:49. FINDINGS: Surgical changes and devices: An electronic apparatus overlying the left chest is again evident with leads extending towards the head. Lungs and pleura: Lungs are clear. No pleural effusions or pneumothorax. Mediastinum: Mediastinal contours appear normal. Heart size is normal. Bones and chest wall: No suspicious bony lesions. Overlying soft tissues appear unremarkable. IMPRESSION: Stable chest. No acute cardiopulmonary process is suspected. Labs Result Diagrams: 05/24/19 08:15 05/24/19 08:15 Labs: Laboratory Results - last 24 hr 05/24/19 05/24/19 05/24/19 08:15 08:15 09:00 WBC 4.2 L RBC 4.64 Hgb 14.2 Hct 40.0 L MCV 86.3 MCH 30.7 MCHC 35.6 RDW 13.7 Plt Count 129 L Neut % (Auto) 72.1 Lymph % (Auto) 14.6 L [place] % (Auto) 8.1 Eos % (Auto) 4.4 H Baso % (Auto) 0.8 Neut # (Auto) 3100 Lymph # (Auto) 600 L [place] # (Auto) 300 Eos # (Auto) 200 Baso # (Auto) 0 Sodium 142 Potassium 3.6 Chloride 103 Carbon Dioxide 29 BUN 19 Creatinine 0.90 Estimated GFR > 60.0 BUN/Creatinine Ratio 21.1 Glucose 98 Calcium 9.4 Total Bilirubin 0.6 AST 14 L ALT < 6 L Alkaline Phosphatase 93 Total Creatine Kinase 44 L CK-MB (CK-2) TNP CK-MB (CK-2) Rel Index TNP Troponin I 0.017 Total Protein 6.8 Albumin 4.1 Globulin 2.7 Albumin/Globulin Ratio 1.5 Lipase 68 Urine RBC 1-5/hpf D Urine WBC 1-5/hpf Ur Squamous Epith Cells 0-1 /hpf Urine Bacteria Few (2-10) H Urine Mucus 1+ H Ur Culture Indicated? Cult not indicated Assessment & Plan Assessment & Plan narrative: 73-year-old male with tongue numbness and history of TIA and Parkinson's disease with hairy cell leukemia. Based on the evaluation in the emergency department patient's previous history and elevated blood pressure he will be admitted to the hospital for observation. Patient will have further workup and evaluation of the possibility of a new stroke and control of blood pressure. Tongue numbness possibility includes TIA versus CVA elevated blood pressure or other unknown etiology. Patient will not be able to do an MRI because of his deep brain stimulator. He had a CT scan we will do a CT angiogram had a carotid ultrasound. Will place him on telemetry monitoring for further evaluation of heart arrhythmia. Will work on getting his blood pressure down. Provide him an aspirin. Essential hypertension. Patient has quite elevated high blood pressure in the his recent neurological event. Will gradually lower his blood pressure down to normal. Parkinson's disease. Place him back on his home Parkinson's medication well were working on evaluation and workup. Hairy cell leukemia stable Disposition plan patient will be admitted as an observation Quality VTE Deep Vein Thrombosis/Pulmonary Embolism Present on Admission: No
--- NOTE | 2019-05-24 15:50 | P.HP_ITS ---
History of Present Illness Date Patient Seen: 05/24/19 Time Patient Seen: 15:00 Chief complaint: thinks he is having heart attack or attack Narrative: 73-year-old patient of Dr. Kasier. Patient has a history of Parkinson's hairy cell leukemia TIA and high blood pressure. He comes in jovanny rning that he may have had a heart attack or a stroke. His symptoms are as followed. He says 1 week ago he had sudden onset of numbness in his tongue almost like it was tied in a knot. He did have slurring of speech or difficulty with words he just felt like his tongue went numb. Said he was hoping it would get better after he woke up which it did not. He took 2 baby aspirin and a little later the symptoms went away. He had similar symptoms today and they did not go away and he became concerned he was having a heart attack or stroke. He presented to the emergency department because he heard numbness means maybe or having 1. Patient states he has a numb spot on his right arm that comes and goes and various other a sundry numb area as. Patient does not describe any recent symptoms with worsening of his gait blurry vision decreased strength in his extremities difficulty with speech or thought. Patient has Parkinson's and is a reliable historian. Patient History Medical History Hairy cell leukemia (Acute) Parkinsons disease (Acute) Surgical History S/P TURP (Acute) History of tonsillectomy Social History household members: spouse Smoking Status: Former smoker alcohol intake: current substance use type: does not use Family & Social History Social History: household members spouse Prior Living Arrangements House Safety & Behavioral: Feels Safe in Current Yes Environment Been Physically Hurt or No Threatened By a Person Suicidal Ideation Description None Suicide Plan Description No Plan Tobacco & Substance use: Smoking Status Former smoker alcohol intake current alcohol intake frequency holiday/special occasion Substance Use Type does not use Meds Home Medications Medication Instructions Recorded Confirmed Type carbidopa ER 50 mg-levodopa 200 mg 1 tab PO PRN PRN 04/08/18 05/01/19 History tablet,extended release rutin 450 mg PO QAM 06/19/18 05/01/19 History acetaminophen [Tylenol] 325 mg PO Q6H PRN 06/26/18 05/01/19 History vitamins A,C,T-mlyp-hzfaii 1 cap PO DAILY 08/28/18 05/01/19 History [PreserVision AREDS] Disabled Parking #1 each 03/05/19 05/01/19 Rx meloxicam 15 mg tablet 15 mg PO DAILY #30 tab 05/01/19 Rx Allergies Allergy/AdvReac Type Severity Reaction Status Date / Time cefuroxime Allergy Mild rash/ Verified 05/01/19 13:50 itching codeine [CODEINE] Allergy Mild NAUSEA Verified 05/01/19 13:50 clindamycin AdvReac N/V Verified 05/01/19 13:50 Exam Narrative Exam Narrative: Gen.: Alert no apparent distress has resting tremor HEENT: PERRLA oral mucosa is moist neck is supple Respiratory: normal respiratory effort lungs are clear Abdomen: soft nontender no rebound or guarding Extremities: full range of motion mild tremor resting of his upper and lower extremity Neurologic: patient has rigidity cogwheel. Resting tremor. No focal neurological cranial nerve deficits. Patient has strength 3/5 in both extremities equal and symmetric Objective Imaging CT scan - head: Radiologist's impression: [place] [address] CT Scan Report Signed Patient: Olu Rivas R#: [id number] : 7Acct:[id number] Age/Sex: 73 / MDate of Service: 05/24/19 Loc: ED Accession Number: [id number] Procedure: CT head/brain wo con Ordering Provider: Ernestina Rudolph D.O. PROCEDURE: CT HEAD/BRAIN WO CON INDICATIONS: difficulty with speech TECHNIQUE: Noncontrast 4.5 mm thick angled axial sections acquired from the foramen magnum to the vertex, with coronal and sagittal reformats. For radiation dose reduction, the following was used: automated exposure control, adjustment of mA and/or kV according to patient size. COMPARISON: [facility], CT, CT HEAD/BRAIN WO CON, 10/22/2018, 19:03. FINDINGS: Image quality: Diagnostic. CSF spaces: Basal cisterns are patent. No extra-axial fluid collections. Ventricles are mildly prominent with mild parenchymal volume loss. Brain: No midline shift. No intracranial masses or hemorrhage. Alvarez-white matter interface is normal. Subtle areas of low attenuation are identified within the periventricular and deep white matter of the supratentorial brain. Metallic leads are identified extending through the anterior bilateral frontal regions to the level of the superior cerebellar peduncles bilaterally. These lesions are unchanged since the prior study. Skull and face: Calvarium and visualized facial bones are intact, without suspicious lesions. Sinuses: Visualized sinuses and mastoids are clear. IMPRESSION: 1. No acute intracranial hemorrhage. 2. Mild chronic small vessel ischemic changes and parenchymal volume loss. 3. Brain stimulator leads are unchanged since the prior study. [address] [address] XRay Report Signed Patient: Olu Rivas R#: [id number] : 1945cct:[id number] Age/Sex: 73 / MDate of Service: 05/24/19 Loc: ED Accession Number: [id number] Procedure: XR chest 1V Ordering Provider: Ernestina Rudolph D.O. PROCEDURE: XR CHEST 1V INDICATIONS: chest pain TECHNIQUE: One view of the chest was acquired. COMPARISON: [facility], , XR CHEST 1V, 02/12/2019, 14:49. FINDINGS: Surgical changes and devices: An electronic apparatus overlying the left chest is again evident with leads extending towards the head. Lungs and pleura: Lungs are clear. No pleural effusions or pneumothorax. Mediastinum: Mediastinal contours appear normal. Heart size is normal. Bones and chest wall: No suspicious bony lesions. Overlying soft tissues appear unremarkable. IMPRESSION: Stable chest. No acute cardiopulmonary process is suspected. Labs Result Diagrams: 05/24/19 08:15 05/24/19 08:15 Labs: Laboratory Results - last 24 hr 05/24/19 05/24/19 05/24/19 08:15 08:15 09:00 WBC 4.2 L RBC 4.64 Hgb 14.2 Hct 40.0 L MCV 86.3 MCH 30.7 MCHC 35.6 RDW 13.7 Plt Count 129 L Neut % (Auto) 72.1 Lymph % (Auto) 14.6 L [place] % (Auto) 8.1 Eos % (Auto) 4.4 H Baso % (Auto) 0.8 Neut # (Auto) 3100 Lymph # (Auto) 600 L [place] # (Auto) 300 Eos # (Auto) 200 Baso # (Auto) 0 Sodium 142 Potassium 3.6 Chloride 103 Carbon Dioxide 29 BUN 19 Creatinine 0.90 Estimated GFR > 60.0 BUN/Creatinine Ratio 21.1 Glucose 98 Calcium 9.4 Total Bilirubin 0.6 AST 14 L ALT < 6 L Alkaline Phosphatase 93 Total Creatine Kinase 44 L CK-MB (CK-2) TNP CK-MB (CK-2) Rel Index TNP Troponin I 0.017 Total Protein 6.8 Albumin 4.1 Globulin 2.7 Albumin/Globulin Ratio 1.5 Lipase 68 Urine RBC 1-5/hpf D Urine WBC 1-5/hpf Ur Squamous Epith Cells 0-1 /hpf Urine Bacteria Few (2-10) H Urine Mucus 1+ H Ur Culture Indicated? Cult not indicated Assessment & Plan Assessment & Plan narrative: 73-year-old male with tongue numbness and history of TIA and Parkinson's disease with hairy cell leukemia. Based on the evaluation in the emergency department patient's previous history and elevated blood pressure he will be admitted to the hospital for observation. Patient will have further workup and evaluation of the possibility of a new stroke and control of blood pressure. Tongue numbness possibility includes TIA versus CVA elevated blood pressure or other unknown etiology. Patient will not be able to do an MRI because of his deep brain stimulator. He had a CT scan we will do a CT angiogram had a carotid ultrasound. Will place him on telemetry monitoring for further evaluation of heart arrhythmia. Will work on getting his blood pressure down. Provide him an aspirin. Essential hypertension. Patient has quite elevated high blood pressure in the his recent neurological event. Will gradually lower his blood pressure down to normal. Parkinson's disease. Place him back on his home Parkinson's medication well were working on evaluation and workup. Hairy cell leukemia stable Disposition plan patient will be admitted as an observation Quality VTE Deep Vein Thrombosis/Pulmonary Embolism Present on Admission: No
--- NOTE | 2019-05-24 15:54 | DI.CT.S_ITS ---
PROCEDURE: CT ANGIO HEAD AND NECK INDICATIONS: Possible stroke. TECHNIQUE: Pre-contrast 4.5 mm thick sections acquired from the foramen magnum to the vertex. After the administration of intravenous contrast, 1 mm thick sections acquired from the aortic arch through the [place] of [place]. Post-contrast 4.5 mm thick sections then re-acquired from the foramen magnum to the vertex. 3-dimensional gtyyfjo-hksxjwois-lfsjzgnbcc (MIP) and/or volume rendering reformats were acquired of the central intracranial vasculature and neck separately. COMPARISON: [facility], CT, CT HEAD/BRAIN WO CON, 05/24/2019, 8:51. FINDINGS: Image quality: Diagnostic. BRAIN: CSF spaces: Ventricles are normal in size and shape. Basal cisterns are patent. No extra-axial fluid collections. Brain: No midline shift. No intracranial bleeds or masses. Alvarez-white matter interface appears intact. No abnormal enhancement of the brain is evident. There continues to be a bilateral brain stimulators terminating overlying the superior cerebellar peduncles/bilateral thalami. Subtle areas of low attenuation within the periventricular and deep white matter of the supratentorial brain is present. Skull and face: Calvarium and facial bones appear intact, without suspicious lesions. Orbits appear normal. Sinuses: Minimal mucosal thickening is identified involving the posterior right maxillary sinus. Otherwise, the imaged paranasal sinuses and mastoid air cells are clear. HEAD CT ANGIOGRAPHY: Anterior circulation: Intracranial internal carotid arteries are normal in size and flow. The flow within the paired anterior cerebral arteries is normal and symmetric. The flow within the middle cerebral arteries is normal and symmetric. The anterior communicating artery is seen. No aneurysms are seen. Posterior circulation: Visualized portions of the vertebral arteries demonstrate normal caliber, and join to form a normal appearing basilar artery. The right vertebral artery is dominant. Flow within the posterior cerebral arteries is normal and symmetric. No aneurysms are seen. NECK CT ANGIOGRAPHY: Carotid system: The great vessels demonstrate a conventional anatomy as they arise from the aortic arch. The origins of the common carotid arteries appear patent. The common carotid arteries demonstrate normal caliber and courses. Mild atherosclerotic calcifications of the bilateral carotid bulbs are present without narrowing of the lumen of the vessel. There is minimal atherosclerotic calcifications involving bilateral proximal internal carotid arteries, as well. Again, no focal narrowing of the lumen of the vessel is present. The internal carotid arteries demonstrate normal calibers and courses. Posterior circulation: The origins of the vertebral arteries both appear widely patent. The more superior extracranial portions of both vertebral arteries also demonstrate normal courses and calibers. They join to form a normal appearing basilar artery. Soft tissues: Visualized neck soft tissues demonstrate no suspicious abnormalities. Bones: No suspicious bony lesions. Visualized cervical spine appears normally aligned. Least moderate degenerative changes are present involving the cervical spine, most pronounced involving the cervical facet joints. IMPRESSION: 1. No acute intracranial hemorrhage or abnormal parenchymal enhancement. 2. Mild chronic small vessel ischemic changes. 3. Mild bilateral proximal internal carotid artery atherosclerotic changes without narrowing of the lumen of the vessel. 4. The intracranial arteries are patent without significant atherosclerosis, high-grade narrowing, occlusion, or aneurysm. 5. Unremarkable bilateral cervical vertebral arteries. Any quantitative measurements of stenosis were performed using NASCET criteria. Dictated by: Lance Mahajan M.D. on 05/24/2019 at 15:53 Approved by: Lance Mahajan M.D. on 05/24/2019 at 16:00
[2019-05-24] MEDS: ACETAMINOPHEN 325 MG TABLET 650 MG PO (16:44)
[2019-05-24] MEDS: CARBIDOPA-LEVODOPA ER 50/200 TABLET 1 EACH PO (17:23)
--- NOTE | 2019-05-24 17:28 | PC.NURSE ---
Addendum entered by Rae Perez R.N. 05/24/19 21:06: Pt had relatively uneventful evening. Denies any discomfort. Tele showing NSR per ICU staff. Call light w/in reach/ bed alarm on for pt safety. Continue w/plan of care. Original Note: Pt sitting in chair, Denies any discomfort @ this time. Lungs clear, SpO2 94% RA. Went to CT for exam. Tele showing NSR per ICU staff. Call light w/in reach, family in room.
[2019-05-24] MEDS: SELEGILINE 5 MG CAPSULE PO (18:25)
[2019-05-24] MEDS: LISINOPRIL 20 MG TABLET PO (20:09)
[2019-05-24] MEDS: HYDROCODONE/ACET 5/325 TABLET 1 TAB PO (22:01)
[2019-05-25] MEDS: HYDROCODONE/ACET 5/325 TABLET 1 TAB PO ×2 (01:47→07:08)
[2019-05-25 03:39] VITALS: BP 162/70; PULSE 100; RESP 16
[2019-05-25] MEDS: LISINOPRIL 20 MG TABLET PO (07:31)
[2019-05-25] MEDS: ASPIRIN 325 MG TABLET PO (07:31)
[2019-05-25] MEDS: CARBIDOPA-LEVODOPA ER 50/200 TABLET 1 EACH PO (07:32)
[2019-05-25] MEDS: SELEGILINE 5 MG CAPSULE PO (07:42)
[2019-05-25 07:52] VITALS: O2SAT 95
[2019-05-25 08:19] VITALS: BP 162/88; PULSE 87; RESP 16; TEMP 36.4; O2SAT 96
--- NOTE | 2019-05-25 09:23 | DI.ECHO.S_ITS ---
[facility]---------+ [facility] +---------+ : : [address] [place] : : : : [id number] : : : : Phone: [phone]---------+ Echocardiogram Report + + :Name: ASHLEY CONNELLY V Study Date: 05/25/2019 Height: 70 in : :[facility] Weight: 175 lb : : Gender: Male BSA: 2.0 m2 : :: 1945 Age: 73 yrs BP: 162/88 mmHg: :Reason For Study: TIA : :Ordering Physician: Joe : :Hospitalist Performed By: Andressa Guardado : :Referring: NO CORTEZ : + + Interpretation Summary Mild concentric left ventricular hypertrophy with ejection fraction 60-65%. Severely dilated left atrium. Mildly dilated right atrium. Mild aortic valve sclerosis. Mild to moderate aortic regurgitation. Mildly enlarged aortic root, ascending aorta and aortic arch. Comparison is made with the echocardiogram of 12/11/17, LV wall thickness has increased. Procedure: A two-dimensional transthoracic echocardiogram with color flow and Doppler was performed. The study quality was technically adequate. Comparison is made with the echocardiogram of 12/11/17. The patient was in normal sinus rhythm during the exam. Left Ventricle: There is mild concentric left ventricular hypertrophy. The left ventricle is normal in size. The ejection fraction is estimated to be 60- 65%. There are no focal wall motion abnormalities. Right Ventricle: The right ventricle is normal in size and function. Atria: The left atrium is severely dilated. The right atrium is mildly dilated. There is no Doppler evidence for an interatrial shunt. Mitral Valve: The mitral valve is normal. There is trace mitral regurgitation. Aortic Valve: The aortic valve is trileaflet. There is mild aortic valve sclerosis. The aortic valve opens well. There is mild to moderate aortic regurgitation. Tricuspid Valve: The tricuspid valve is normal. There is trace tricuspid regurgitation. The right ventricular systolic pressure is estimated to be at least 26 mmHg based on an estimated right atrial pressure of 3 mm Hg. Pulmonic Valve: The pulmonic valve is not well seen, but is grossly normal. There is a trace or physiologic amount of pulmonic regurgitation. Great Vessels: The aortic root is mildly dilated. The ascending aorta is mildly enlarged. The aortic arch is mildly enlarged. The pulmonary is not well visualized. The IVC is of normal diameter and collapses greater than 50% with a sniff. This suggests a low right atrial pressure of 3 mm Hg. Pericardium/ Pleura There is no pericardial effusion. There is no pleural effusion. MMode/2D Measurements & Calculations LVIDd: 5.1 cm LVOT diam: 2.0 cm LVIDs: 3.1 cm Ao root diam: 4.1 cm FS: 39.3 % asc Aorta Diam: 3.8 cm EPSS: 0.60 cm Ao Arch Diam (Prox Trans): 3.6 cm IVSd: 1.3 cm LVPWd: 1.1 cm LV garrido. diameter/BSA (cm/m^2): 2.6 LV sys. diameter/BSA (cm/m^2): 1.6 LA A2 area: 26.6 cm2 RA long axis: 5.5 cm LA A4 area: 25.7 cm2 RA area: 20.9 cm2 LA length (vol): 6.0 cm RA vol: 67.4 ml LA vol: 96.3 ml RA : 34.2 ml/m2 LA vol index: 48.8 ml/m2 IVC diam: 2.0 cm RVD1 (basal): 4.3 cm RVD2 (mid): 3.5 cm TAPSE: 2.3 cm Doppler Measurements & Calculations Ao V2 max: 193.3 cm/sec LVOT Max Jamal: 129.9 cm/sec Ao V2 mean: 123.2 cm/sec LV V1 max P.7 mmHg Ao max P.0 mmHg LV V1 VTI: 25.0 cm Ao mean P.2 mmHg CLARENCE(I,D): 2.1 cm2 Ao V2 VTI: 39.6 cm CLARENCE(V,D): 2.2 cm2 sev ratio: 0.63 CLARENCE indexed to BSA (cm^2/m^2): 1.1 AI P1/2t: 423.6 msec AI dec slope: 321.9 cm/sec2 MV E max jamal: 46.1 cm/sec TR max jamal: 237.2 cm/sec MV A max jamal: 58.7 cm/sec TR max P.5 mmHg MV E/A: 0.78 PA V2 max: 83.3 cm/sec Med Peak E' Jamal: 6.3 cm/sec PA V2 mean: 50.8 cm/sec E/E' med: 7.3 PA mean P.2 mmHg Lat Peak E' Jamal: 8.3 cm/sec PA Accel Time: 0.13 sec E/E' lat: 5.5 E/e' average: 6.4 MV dec time: 0.20 sec SV(LVOT): 82.5 ml Electronically signed by: Shirley Quiros on Reading Physician:05/25/2019 12:15 PM
--- NOTE | 2019-05-25 09:30 | PT.IIE ---
Surgical History (Last Reviewed 05/24/19 @ 16:18 by Ernestina Rudolph DO) S/P TURP (Acute) History of tonsillectomy Medical History (Last Reviewed 05/24/19 @ 16:18 by Ernestina Rudolph DO) Hairy cell leukemia (Acute) Parkinsons disease (Acute) Physical Therapy Inpatient Evaluation/Re-Eval M1 PT/OT-IP Prior Functional Status Start: 05/25/19 08:22 Freq: NEEDED Status: Active Protocol: Document 05/25/19 09:30 RS (Rec: 05/25/19 11:00 RS [id number]) Medical Review Prior Functional Status Medical History Reviewed Yes Diet/Fluid Consistency Regular Communication no known deficits Mobility and Gait mod ind with SPC w/ tip attachment but tends to just carry it half the time. 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 M2 PT-IP Current Condition Start: 05/25/19 08:22 Freq: NEEDED Status: Active Protocol: Document 05/25/19 09:30 RS (Rec: 05/25/19 11:00 RS [id number]) Physical Therapy Current Condition Current Condition Evaluation Date 05/25/19 Treatment Diagnosis impaired balance, back pain Onset Date 05/24/19 M3 PT-IP Subjective Start: 05/25/19 08:22 Freq: NEEDED Status: Active Protocol: Document 05/25/19 09:30 RS (Rec: 05/25/19 11:00 RS [id number]) Subjective Physical Therapy Visit Type Type Initial Evaluation Visit Start Time 08:30 Visit Stop Time 09:30 Total Visit Minutes 60 Physical Therapy Visit Comments Patient Comments Pt doesn't feel like his mobility has changed at all with this hospitalization, symptoms are purely in/on his face Patient Goals go home KAREEM Therapy Pain Assessment Pain When Pain Assessed At Rest Pain Present Pain Present Denied Pain M4 PT-IP Mobility and Gait Start: 05/25/19 08:22 Freq: NEEDED Status: Active Protocol: Document 05/25/19 09:30 RS (Rec: 05/25/19 11:00 RS [id number]) PT-Bed Mobility Assessment Supine to Sit Supine to Sit Independent Sit to Supine Sit to Supine Independent Scooting Scooting to Edge of Bed Independent Scooting Up and Down in Bed Independent PT-Transfer Assessment Sit to and From Stand Sit to and from Stand Independent Equipment Transfer Assistive Device Straight Cane Transfers Transfer Destination Bed Chair Transfer Technique Stand Step Pivot Transfer Ability Level of Assist Independent Comments Mobility Comments can safely mobilize without physical assist, uses SPC once standing Gait Assessment Gait Gait Assistance Required: Independent Assistive Devices Assistive Device Straight Cane Gait Deviations General Gait Pattern Within Normal Limits Comments Gait Comments pt demos safe gait with intermittent use of SPC PT-Balance Assessment Sitting Balance and Reactions Static Sitting Balance Ability Normal Dynamic Sitting Balance Ability Normal Standing Balance and Reactions Static Standing Balance Ability Normal Dynamic Standing Balance Ability Good Device Used SPC M5 PT-IP Objective Assessments Start: 05/25/19 08:22 Freq: NEEDED Status: Active Protocol: Document 05/25/19 09:30 RS (Rec: 05/25/19 11:00 RS [id number]) Orientation Orientation/Cognition Level of Alertness Alert Orientation Name Age Birthday Month Date Year Day of Week Place Situation Language Function Ability No Deficits Noted Safety Awareness Understands Safety Issues Memory Description No Deficits Noted Gross Range of Motion Upper Extremity ROM Assessment Within Functional Limits Lower Extremity ROM Assessment Within Functional Limits Strength Upper Extremity Strength Assessment Within Functional Limits Lower Extremity Strength Assessment Within Functional Limits M6 PT-IP Treatment Start: 05/25/19 08:22 Freq: NEEDED Status: Active Protocol: Document 05/25/19 09:30 RS (Rec: 05/25/19 11:00 RS [id number]) Physical Therapy Treatment Education Education Provided Safety M7 PT-IP Assessment and Plan Start: 05/25/19 08:22 Freq: NEEDED Status: Active Protocol: Document 05/25/19 09:30 RS (Rec: 05/25/19 11:00 RS [id number]) PT Summary Assessment and Plan Potential Rehabilitation Potential Good Status of Condition at Evaluation Stable Summary Progress Towards Goals Safe For Discharge Assessment Summary Pt presents with some chronic issues that affect his mobility, but there has been no acute change in function with this hospitalization (pt is at baseline). Pt was participating in outpatient PT for some back pain after that recent fall; it is recommended that he return to this one home, which is also the patient's intention. Patient is safe to discharge home when medically ready but has no other acute PT needs, will sign off. Frequency of Treatment Frequency Of Treatment Discharge Recommendations To Nursing Amount of Assist Needed Independent Discharge Recommendations PT Discharge Recommendations Home Outpatient PT
--- NOTE | 2019-05-25 09:59 | PM.DS.1 ---
History of Present Illness Date Patient Seen: 05/25/19 Time Patient Seen: 09:59 Chief complaint: thinks he is having heart attack or attack Narrative: Patient admitted yesterday for evaluation of tongue a numbness. Symptoms had resolved over short period time. Evaluation included head CT which is unremarkable. Chest x-ray unremarkable. CT angiogram was performed that showed an unremarkable brain with no tumor strokes her or hemorrhage. Echocardiogram and carotid Doppler pending Discharge Providers Date of admission: 05/24/19 10:39 Discharge Date: 05/25/19 Primary care physician: Layton Kaiser MD Consults: 05/24/19 15:52 Consult to Discharge Planning Routine Comment: Consult to Physical Therapy Evaluate & Treat Comment: Physician Instructions: Evaluate and Treat Discharge provider: Layton Kaiser MD Summary Discharge Diagnosis: 1. Tongue numbness 2. Pre-existing parkinsonism on medications. 3. New onset hypertension being treated with wound with lisinopril 20 mg twice a day to be monitored as an outpatient. 4. Pre-existing low back pain on medications. 5. 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 6. History of prostate cancer being monitored by Urology. Exam Vital Signs (past 8 hours): - 05/25/19 03:39 05/25/19 07:52 05/25/19 08:19 Temperature 97.6 F Pulse Rate 100 H 87 Respiratory Rate 16 16 Blood Pressure 162/70 H 162/88 H Pulse Oximetry 95 96 Oxygen Delivery Method Room Air Oxygen Flow Rate 0 Narrative Exam Narrative: Gen.: Skin: Warm well perfused. No prominent lesions. Nonicteric. HEENT: PERRL., normal EOM, external ears canals TMs normal, nasal mucosa normal and midline septum, oropharynx without lesions. Neck: Trachea midline. Thyroid nontender and not enlarged. Carotids without bruits. No lymphadenopathy Back: No obvious deformity or tenderness. Chest: Clear to P&A. Symmetric. CV: RRR no murmur or gallop. No JVD. Abdomen: No masses bruits tenderness or visceromegaly. Neuro: Cranial nerves II through XII grossly intact. Sensory and motor exams intact. Gait normal. Mental status: Intact for screening Extremities: No cyanosis clubbing or edema Musculoskeletal: No gross deformities Lymphatics: Negative for lymphadenopathy, supraclavicular axillary or inguinal Objective Labs Result Diagrams: 05/24/19 08:15 05/24/19 08:15 Labs: Head CT angiogram was unremarkable with normal-appearing brain tissue. Evidence for the stimulators present. No hemorrhage no aneurysm no stroke either recent or old. Angiogram of vascular structures all normal. Echocardiogram and carotid Doppler pending at the time this dictation Discharge Plan Discharge Plan Patient Disposition: Home Discharge comment: to be discharged after carotid us and echo are completed appt [facility] week Discharge Med Rec/Prescriptions Prescriptions: New lisinopril 20 mg Tablet 20 mg PO BID Qty: 100 RF: 0 Continued carbidopa-levodopa 50-200 mg tablet extended release 1 tab PO PRN PRN (Reason: unknown) RF: 0 [address]abled [address]ing .ROUTE .MEDSUPPLY Qty: 1 RF: 0 meloxicam 15 mg tablet 15 mg PO DAILY Qty: 30 RF: 0 rutin 500 mg Tablet 450 mg PO QAM RF: 0 acetaminophen [Tylenol] 325 mg Tablet 325 mg PO Q6H PRN (Reason: Pain (Scale Score 1-3)) RF: 0 PreserVision AREDS [id number] Capsule 1 cap PO DAILY RF: 0 selegiline HCl 5 mg Capsule 5 mg PO BID RF: 0 Follow up/Referrals: Layton Kaiser MD [Primary Care Provider] - Provider Discharge Instructions Diet: Diet as Tolerated Discharge Data Primary Care Provider: Layton Kaiser Attending Provider: Layton Kaiser Admit Date/Time: 05/24/19 10:39 Quality VTE Deep Vein Thrombosis/Pulmonary Embolism Present on Admission: No
--- NOTE | 2019-05-25 10:23 | CM.DANOTE ---
DCP: Case received, EMR reviewed and met with patient. Introduced self and role. Baseline health information obtained by , Elvie, as well as patient. DCP template assessment completed with information currently available. Patient is a 73 year old male who admitted yesterday morning to the care of the hospitalist team. Payer: confirmed: Medicare/[employer]. Patient came to hospital via family vehicle secondary to symptoms of numbness/tingling, to his upper extremities. Patient has history of Parkinsons, as well as hair cell Leukemia. Met briefly with patient. He was sitting up on the edge of his bed, and at bedside. Patient uses a cane at home, is independent. is supportive. Discussed resources, such as caregiving. stated, there may be a time that I want someone to come in for a few hours, if I have to go out and do things, like shopping. was under the assumption that insurance covers caregiving. Let her know that this would have to be paid for privately. Discussed home health as well. Explained that this is covered, if he should ever need this. stated that they have bathroom/shower set up with bars, etc. P: DCP to continue to follow. Patient may be able to go home today when he is medically stable. Yohana Romero RN/[facility]
--- NOTE | 2019-05-25 11:25 | PC.NURSE ---
Day shift: Pt left unit at approx 1125 via WC w/ spouse and PRESSFITTER. Pt will be taken to oncology dept for an appointment. Pt has all personal belongings. Paperwork signed and all questions answered. MD script faxed to pharm by .
== END 2019-05-25 11:27 | disposition home or self-care (01) ==
LOC: ED 10:39 → AC 10:40
PROVIDERS: Admitting Provider Family Medicine; Emergency Provider Emergency Medicine; PCP Family Medicine; Visit Provider Family Medicine
DX: R29.818 Other symptoms and signs involving the nervous system (principal); G20 Parkinson's disease; C91.41 Hairy cell leukemia, in remission; R20.0 Anesthesia of skin; M54.5 Low back pain; I10 Essential (primary) hypertension; Z86.73 Personal history of transient ischemic attack (TIA), and cerebral infarction without residual deficits; Z87.898 Personal history of other specified conditions
CPT/HCPCS: 36415; 36591; 70450; 70496; 70498; 71045; 80053; 81003; 81015; 82550; 83690; 84484; 85025; 93005; 93010; 93306; 96361; 96374; 96375; 97161; 99217; 99219; 99285; G0378; J2930; Q9967

== ENCOUNTER 2019-05-28 12:56 | Emergency (ER) | payer MEDICARE, OTHER, SELFPAY ==
[2019-05-24 13:24] VITALS: BMI 26.0
[2019-05-28 13:00] VITALS: BP 212/94; PULSE 88; RESP 28; TEMP 36.2; O2SAT 95
--- NOTE | 2019-05-28 13:27 | DI.RAD.S_ITS ---
PROCEDURE: XR CHEST 1V INDICATIONS: Chest pain TECHNIQUE: One view of the chest was acquired. COMPARISON: None. FINDINGS: Surgical changes and devices: Left chest wall battery pack is seen with leads extending along left lateral neck soft tissues suggest clinical correlation. Lungs and pleura: Lungs are clear. No pleural effusions or pneumothorax. Mediastinum: Mediastinal contours appear normal. Heart size is enlarged. Bones and chest wall: No suspicious bony lesions. Overlying soft tissues appear unremarkable. IMPRESSION: No acute cardiopulmonary pathology. Dictated by: Brenton Turner M.D. on 05/28/2019 at 14:01 Approved by: Brenton Turner M.D. on 05/28/2019 at 14:01
--- NOTE | 2019-05-28 13:29 | ED.MALEGU ---
HPI - Male Genitourinary <NANCY Art - Last Filed: 05/28/19 16:54> General Chief complaint: Urogenital-Male Stated complaint: Can't urinate Time Seen by Provider: 05/28/19 13:10 Source: patient Mode of arrival: ambulatory Limitations: no limitations History of Present Illness HPI Narrative: 73-year-old male with a history of Parkinson's and hairy cell leukemia, presents emergency department today complaining of the inability to urinate since early this morning. States he felt like he was constipated (last bowel movement was 3-4 days, he had a small bowel movement today that was loose with mucus) and took some Dulcolax however he noticed that he could not urinate more than a few drops at this time. Complains of 6/10 abdominal pain with bladder fullness. Associated 3/10 sharp left-sided chest twinges while he was EN route to the emergency department. Patient denies fevers, chills, or shortness of breath, vomiting. Patient was pacing the room during history of exam. Related Data Home Medications Medication Instructions Recorded Confirmed carbidopa ER 50 mg-levodopa 200 mg 1 tab PO PRN PRN 04/08/18 05/25/19 tablet,extended release rutin 450 mg PO QAM 06/19/18 05/25/19 acetaminophen [Tylenol] 325 mg PO Q6H PRN 06/26/18 05/25/19 PreserVision AREDS 1 cap PO DAILY 08/28/18 05/25/19 selegiline HCl 5 mg PO BID 05/24/19 05/25/19 Previous Rx's Medication Instructions Recorded Disabled Parking #1 each 03/05/19 lisinopril 20 mg PO BID #100 tab 05/25/19 Allergies Allergy/AdvReac Type Severity Reaction Status Date / Time cefuroxime Allergy Mild rash/ Verified 05/01/19 13:50 itching codeine [CODEINE] Allergy Mild NAUSEA Verified 05/01/19 13:50 clindamycin AdvReac N/V Verified 05/01/19 13:50 Review of Systems <NANCY Art - Last Filed: 05/28/19 16:54> Review of Systems REVIEW OF SYSTEMS: GENERAL: Denies fever or chills. HENT: No head trauma, hearing loss or sore throat. EYES: No loss of vision, double vision, eye pain, or irritation. CARDIOVASCULAR: Complains of a twinge of chest pain, see HPI. RESPIRATORY: No shortness of breath or cough. GASTROINTESTINAL: Complains of constipation, see HPI. GENITOURINARY: Complains of urinary incontinence, see HPI. MUSCULOSKELETAL: No pain, weakness, or deformities. INTEGUMENTARY: No rash, lesions, or pruritus. NEURO: No numbness, tingling, memory loss, or confusion. PSYCH: No behavior or mood changes. PFSH <NANCY Art - Last Filed: 05/28/19 16:54> Medical History Hairy cell leukemia (Acute) Parkinsons disease (Acute) Surgical History S/P TURP (Acute) History of tonsillectomy Social History household members: spouse Smoking Status: Former smoker alcohol intake: current substance use type: does not use Social History household members: spouse Smoking Status: Former smoker alcohol intake: current substance use type: does not use Exam <NANCY Art - Last Filed: 05/28/19 16:54> Initial Vital Signs Initial Vital Signs: Vital Signs Temperature 97.2 F L 05/28/19 13:00 Pulse Rate 88 05/28/19 13:00 Respiratory Rate 28 H 05/28/19 13:00 Blood Pressure 212/94 H 05/28/19 13:00 Pulse Oximetry 95 05/28/19 13:00 PHYSICAL EXAMINATION: GENERAL: Well groomed, alert, and cooperative. Answers questions promptly and appropriately. Vital signs noted. HENT: Normocephalic, atraumatic. . EYES: conjunctiva pink, sclera white, no periorbital swelling. NECK: Full range of motion, nontender. LYMPH: No lymphadenopathy. CHEST: Normal to inspection and without deformities. CARDIOVASCULAR: S1 and S2 sounds normal. Regular rate and rhythm, no murmurs, clicks, or bruits. No pedal edema. RESPIRATORY: Normal respiratory rate, trachea midline, airway patent. No stridor, nasal flaring or accessory muscle use. Lungs are clear in all golden without wheeze, rhonchi, or crackles. GASTROINTESTINAL: Bowel sounds normoactive, complains of epigastric pain. : Bladder is palpable upon exam. Bladder scan initially revealed 500 mL of urine in the bladder. Patient has been dribbling urine occasionally. Even after small amount of urine output bladder scan still reveals 500 mL of fluid. MUSCULOSKELETAL: Normal gait and coordination. Equal tone and mass bilaterally. EXTREMITIES: CMS intact. SKIN: Warm, dry, soft, appropriate color for ethnicity. No lesions, rashes, or wounds. NEURO: Alert and Oriented X 3. Good coordination. No ataxia, or sensory deficits, or cognitive issues. PSYCH: Appropriate affect and mood. <Ernestina Rudolph DO - Last Filed: 05/29/19 07:19> Initial Vital Signs Initial Vital Signs: Vital Signs Temperature 97.2 F L 05/28/19 13:00 Pulse Rate 88 05/28/19 13:00 Respiratory Rate 28 H 05/28/19 13:00 Blood Pressure 212/94 H 05/28/19 13:00 Pulse Oximetry 95 05/28/19 13:00 Course <NANCY Art - Last Filed: 05/28/19 16:54> Orders Ordered: Discontinued Medications Hydromorphone HCl (Dilaudid) 0.5 mg IV NOW ONE Stop: 05/28/19 14:37 Last Admin: 05/28/19 14:39 Dose: 0.5 mg Lorazepam (Ativan) 0.5 mg IV NOW ONE Stop: 05/28/19 14:05 Last Admin: 05/28/19 14:15 Dose: 0.5 mg Oxycodone/Acetaminophen (Percocet 5/325) 1 tab PO NOW ONE Stop: 05/28/19 15:45 Last Admin: 05/28/19 16:06 Dose: 1 tab Oxycodone/Acetaminophen (Percocet 5/325) 1 tab PO NOW ONE Stop: 05/28/19 16:47 Last Admin: 05/28/19 16:54 Dose: 1 tab Reevaluation(s) Reevaluation #1: Some evaluated by Dr. Rudolph Time: 14:00 Consultations Consultation #1: Consult Dr. Yadav at [facility] urology as patient this is a patient of Dr. Aurora Nicholas. Explained that we have tried placing 4 different catheters including two coudes. Dr. Yadav recommended that the attending physician dry. Dr. Rudolph attempted to insert an 18G coude without success. She then proceeded to contact Dr. Yadav again for consultation at [facility]. Patient will be transferred to the [facility] ED where Dr. Yadav will meet patient to place Elaine catheter. Emergency department provided accepts transfer, Dr. Rudolph gave patient report. Time: 15:44 Vital Signs - 8 hr 05/28/19 13:00 05/28/19 14:38 05/28/19 16:23 Temperature 97.2 F L 97.9 F Pulse Rate 88 81 86 Respiratory Rate 28 H 20 20 Blood Pressure 212/94 H Blood Pressure [Right Arm] 211/88 H Pulse Oximetry 95 95 97 <Ernestina Rudolph DO - Last Filed: 05/29/19 07:19> Orders Ordered: Discontinued Medications Hydromorphone HCl (Dilaudid) 0.5 mg IV NOW ONE Stop: 05/28/19 14:37 Last Admin: 05/28/19 14:39 Dose: 0.5 mg Lorazepam (Ativan) 0.5 mg IV NOW ONE Stop: 05/28/19 14:05 Last Admin: 05/28/19 14:15 Dose: 0.5 mg Oxycodone/Acetaminophen (Percocet 5/325) 1 tab PO NOW ONE Stop: 05/28/19 15:45 Last Admin: 05/28/19 16:06 Dose: 1 tab Oxycodone/Acetaminophen (Percocet 5/325) 1 tab PO NOW ONE Stop: 05/28/19 16:47 Last Admin: 05/28/19 16:54 Dose: 1 tab Vital Signs - 8 hr 05/28/19 13:00 05/28/19 14:38 05/28/19 16:23 Temperature 97.2 F L 97.9 F Pulse Rate 88 81 86 Respiratory Rate 28 H 20 20 Blood Pressure 212/94 H Blood Pressure [Right Arm] 211/88 H Pulse Oximetry 95 95 97 MDM - Male Genitourinary <NANCY Art - Last Filed: 05/28/19 16:54> Medical Records Attestation: I reviewed the patient's medical records. Lab Data Attestation: I reviewed the patient's lab results. Result diagrams: 05/28/19 14:04 05/28/19 14:04 Lab Results 05/28/19 05/28/19 05/28/19 Range/Units 14:04 14:04 14:04 WBC 5.1 (4.5-11.0) X10^3/uL RBC 5.11 (4.5-5.9) X10^6/uL Hgb 15.8 (13.5-17.5) g/dL Hct 44.0 (41-53) % MCV 86.1 (80-100) fL MCH 30.9 (26-34) PG MCHC 35.9 (30-36) % RDW 13.7 (11.6-14.8) % Plt Count 151 (150-400) X10^3/uL Neut % (Auto) 72.2 (50-75) % Lymph % (Auto) 15.2 L (25-40) % [place] % (Auto) 9.5 (3-14) % Eos % (Auto) 2.4 (2-4) % Baso % (Auto) 0.7 (0-2) % Neut # (Auto) 3700 (5772-9194) /uL Lymph # (Auto) 800 L (9301-8750) /uL [place] # (Auto) 500 (0-900) /uL Eos # (Auto) 100 (0-450) /uL Baso # (Auto) 0 (0-100) /uL PT 12.0 (10.1-12.7) SECONDS INR 1.0 (0.9-1.3) Sodium 143 (137-145) mmol/L Potassium 4.0 (3.4-5.1) mmol/L Chloride 102 (98-107) mmol/L Carbon Dioxide 33 H (22-32) mmol/L BUN 18 (9-20) mg/dL Creatinine 1.00 (0.66-1.25) mg/dL Estimated GFR > 60.0 (>60) mL/min BUN/Creatinine Ratio 18.0 (6-22) Glucose 109 (80-110) mg/dL Calcium 10.0 (8.4-10.2) mg/dL Total Bilirubin 0.9 (0.2-1.3) mg/dL AST 19 (17-59) IU/L ALT 14 L (21-72) IU/L Alkaline Phosphatase 122 (38-126) U/L Total Creatine Kinase 54 L (55-170) U/L CK-MB (CK-2) TNP CK-MB (CK-2) Rel Index TNP Troponin I < 0.012 (0.01-0.034) ng/mL Total Protein 7.7 (6.3-8.2) g/dL Albumin 4.6 (3.5-5.0) g/dL Globulin 3.1 (1.7-4.1) g/dL Albumin/Globulin Ratio 1.5 (1.0-2.8) Urine Color Urine Appearance Urine pH (4.5-8.0) Ur Specific [place] (1.000-1.035) Urine Protein (Negative) Urine Glucose (UA) (Negative) g/dL Urine Ketones (NEGATIVE) Urine Occult Blood (Negative) Urine Nitrate (Negative) Urine Bilirubin (NEGATIVE) Urine Urobilinogen (0.2) E.U./dL Ur Leukocyte Esterase (NEGATIVE) Urine RBC (0-5/HPF) Urine WBC (0-5/HPF) Ur Squamous Epith Cells (0-5/HPF) Urine Bacteria (None) Ur Culture Indicated? 05/28/19 Range/Units 16:05 WBC (4.5-11.0) X10^3/uL RBC (4.5-5.9) X10^6/uL Hgb (13.5-17.5) g/dL Hct (41-53) % MCV (80-100) fL MCH (26-34) PG MCHC (30-36) % RDW (11.6-14.8) % Plt Count (150-400) X10^3/uL Neut % (Auto) (50-75) % Lymph % (Auto) (25-40) % [place] % (Auto) (3-14) % Eos % (Auto) (2-4) % Baso % (Auto) (0-2) % Neut # (Auto) (5796-1677) /uL Lymph # (Auto) (8642-7402) /uL [place] # (Auto) (0-900) /uL Eos # (Auto) (0-450) /uL Baso # (Auto) (0-100) /uL PT (10.1-12.7) SECONDS INR (0.9-1.3) Sodium (137-145) mmol/L Potassium (3.4-5.1) mmol/L Chloride (98-107) mmol/L Carbon Dioxide (22-32) mmol/L BUN (9-20) mg/dL Creatinine (0.66-1.25) mg/dL Estimated GFR (>60) mL/min BUN/Creatinine Ratio (6-22) Glucose (80-110) mg/dL Calcium (8.4-10.2) mg/dL Total Bilirubin (0.2-1.3) mg/dL AST (17-59) IU/L ALT (21-72) IU/L Alkaline Phosphatase (38-126) U/L Total Creatine Kinase (55-170) U/L CK-MB (CK-2) CK-MB (CK-2) Rel Index Troponin I (0.01-0.034) ng/mL Total Protein (6.3-8.2) g/dL Albumin (3.5-5.0) g/dL Globulin (1.7-4.1) g/dL Albumin/Globulin Ratio (1.0-2.8) Urine Color Red Urine Appearance Slightly cloudy Urine pH 6.5 (4.5-8.0) Ur Specific [place] 1.010 (1.000-1.035) Urine Protein Negative (Negative) Urine Glucose (UA) Negative (Negative) g/dL Urine Ketones Negative (NEGATIVE) Urine Occult Blood 3+ H (Negative) Urine Nitrate Negative (Negative) Urine Bilirubin Negative (NEGATIVE) Urine Urobilinogen 0.2 (0.2) E.U./dL Ur Leukocyte Esterase 1+ H (NEGATIVE) Urine RBC >100/hpf (0-5/HPF) Urine WBC 5-10/hpf H (0-5/HPF) Ur Squamous Epith Cells 0-1 /hpf (0-5/HPF) Urine Bacteria None seen (None) Ur Culture Indicated? Specimen cultured Imaging Data ABD CT: Radiologist's impression: [address] [address] [address] Scan Report Signed Patient: Olu Rivas R#: [id number] : 7Acct:[id number] Age/Sex: 73 / MDate of Service: 05/28/19 Loc: ED Accession Number: [id number] Procedure: CT abdomen pelvis w con Ordering Provider: Shirley Apodaca PROCEDURE: CT ABDOMEN PELVIS W CON INDICATIONS: Abd distention, pain, constipation, difficulty urinating. TECHNIQUE: After the administration of intravenous contrast, 5 mm thick sections acquired from the diaphragm to the symphysis. 5 mm coronal and sagittal reformats were acquired. For radiation dose reduction, the following was used: automated exposure control, adjustment of mA and/or kV according to patient size. COMPARISON: None. FINDINGS: Image quality: Excellent. ABDOMEN: Lung bases: Lung bases are clear. Heart size is normal. Solid organs: Liver is normal in size and enhancement. At least 3 subcentimeter well circumscribed hypodensities are seen scattered in the liver parenchyma, and likely represent hepatic cysts. Hepatic steatosis is seen Gallbladder is within normal limits. Biliary system is non dilated. Pancreas enhances normally. Spleen is normal in size and enhancement. No adrenal nodules. Kidneys demonstrate normal size and enhancement, without hydronephrosis. Peritoneum and bowel: There is no bowel obstruction. Questionable gastric wall thickening is seen. Small hiatal hernia is also noted. No abnormal small bowel or colon wall thickening. No free fluid or free air. Nodes and vessels: No retroperitoneal or mesenteric adenopathy by size criteria. Aorta and inferior vena cava are normal in size. Miscellaneous: No ventral hernias. PELVIS: Genitourinary: Bladder wall thickness is normal. Enlarged prostate gland with mass effect on floor of urinary bladder is seen. Miscellaneous: No inguinal hernias or adenopathy. Bones: No suspicious bony lesions. Chronic appearing compression deformity involving superior endplate of L2 is seen with up to 20% loss of L2 vertebral body height. Degenerative disc disease throughout lower thoracic and lumbar spine is seen. IMPRESSION: 1. Questionable mild gastric wall thickening, which may represent infectious or inflammatory gastritis. No bowel obstruction. No abnormal small bowel or colonic wall thickening. No free fluid or free air. 2. No renal stones or hydronephrosis. 3. At least 3 well-circumscribed hypodensities seen in right and left hepatic lobes, likely representing hepatic cysts. Dictated by: Brenton Turner M.D. on 05/28/2019 at 14:07 Approved by: Brenton Turner M.D. on 05/28/2019 at 14:12 ECG Data Pacemaker model: RT unable to obtain EKG due to Parkinson's. MDM Narrative Medical decision making narrative: Exam, CT, history reveals that patient's symptoms are most likely caused by distended bladder and urinary retention. As multiple times for place a urinary catheter failed, patient is being transferred to schedule emergency department in order for the urologist, Dr. Yadav to care for patient. Dr. Yadav then contacted 3 times during this process for consultation and Dr. Rudolph was also evaluated this patient. Less likely infection due to lack of white blood cells, or acute findings on CT. Less likely cardiac chest pain due to negative troponins, no acute findings on an x-ray. While the respiratory therapist was unable to obtain an EKG, at this time patient's main symptoms revolve around bladder distention, extensive education was given to patient to alert the staff if he develops any chest pain during his stay for his transfer. <Ernestina Rudolph, DO - Last Filed: 05/29/19 07:19> Lab Data Lab Results 05/28/19 05/28/19 05/28/19 Range/Units 14:04 14:04 14:04 WBC 5.1 (4.5-11.0) X10^3/uL RBC 5.11 (4.5-5.9) X10^6/uL Hgb 15.8 (13.5-17.5) g/dL Hct 44.0 (41-53) % MCV 86.1 (80-100) fL MCH 30.9 (26-34) PG MCHC 35.9 (30-36) % RDW 13.7 (11.6-14.8) % Plt Count 151 (150-400) X10^3/uL Neut % (Auto) 72.2 (50-75) % Lymph % (Auto) 15.2 L (25-40) % [place] % (Auto) 9.5 (3-14) % Eos % (Auto) 2.4 (2-4) % Baso % (Auto) 0.7 (0-2) % Neut # (Auto) 3700 (0954-6047) /uL Lymph # (Auto) 800 L (0860-1304) /uL [place] # (Auto) 500 (0-900) /uL Eos # (Auto) 100 (0-450) /uL Baso # (Auto) 0 (0-100) /uL PT 12.0 (10.1-12.7) SECONDS INR 1.0 (0.9-1.3) Sodium 143 (137-145) mmol/L Potassium 4.0 (3.4-5.1) mmol/L Chloride 102 (98-107) mmol/L Carbon Dioxide 33 H (22-32) mmol/L BUN 18 (9-20) mg/dL Creatinine 1.00 (0.66-1.25) mg/dL Estimated GFR > 60.0 (>60) mL/min BUN/Creatinine Ratio 18.0 (6-22) Glucose 109 (80-110) mg/dL Calcium 10.0 (8.4-10.2) mg/dL Total Bilirubin 0.9 (0.2-1.3) mg/dL AST 19 (17-59) IU/L ALT 14 L (21-72) IU/L Alkaline Phosphatase 122 (38-126) U/L Total Creatine Kinase 54 L (55-170) U/L CK-MB (CK-2) TNP CK-MB (CK-2) Rel Index TNP Troponin I < 0.012 (0.01-0.034) ng/mL Total Protein 7.7 (6.3-8.2) g/dL Albumin 4.6 (3.5-5.0) g/dL Globulin 3.1 (1.7-4.1) g/dL Albumin/Globulin Ratio 1.5 (1.0-2.8) Urine Color Urine Appearance Urine pH (4.5-8.0) Ur Specific [place] (1.000-1.035) Urine Protein (Negative) Urine Glucose (UA) (Negative) g/dL Urine Ketones (NEGATIVE) Urine Occult Blood (Negative) Urine Nitrate (Negative) Urine Bilirubin (NEGATIVE) Urine Urobilinogen (0.2) E.U./dL Ur Leukocyte Esterase (NEGATIVE) Urine RBC (0-5/HPF) Urine WBC (0-5/HPF) Ur Squamous Epith Cells (0-5/HPF) Urine Bacteria (None) Ur Culture Indicated? 05/28/19 Range/Units 16:05 WBC (4.5-11.0) X10^3/uL RBC (4.5-5.9) X10^6/uL Hgb (13.5-17.5) g/dL Hct (41-53) % MCV (80-100) fL MCH (26-34) PG MCHC (30-36) % RDW (11.6-14.8) % Plt Count (150-400) X10^3/uL Neut % (Auto) (50-75) % Lymph % (Auto) (25-40) % [place] % (Auto) (3-14) % Eos % (Auto) (2-4) % Baso % (Auto) (0-2) % Neut # (Auto) (4957-3545) /uL Lymph # (Auto) (8110-8299) /uL [place] # (Auto) (0-900) /uL Eos # (Auto) (0-450) /uL Baso # (Auto) (0-100) /uL PT (10.1-12.7) SECONDS INR (0.9-1.3) Sodium (137-145) mmol/L Potassium (3.4-5.1) mmol/L Chloride (98-107) mmol/L Carbon Dioxide (22-32) mmol/L BUN (9-20) mg/dL Creatinine (0.66-1.25) mg/dL Estimated GFR (>60) mL/min BUN/Creatinine Ratio (6-22) Glucose (80-110) mg/dL Calcium (8.4-10.2) mg/dL Total Bilirubin (0.2-1.3) mg/dL AST (17-59) IU/L ALT (21-72) IU/L Alkaline Phosphatase (38-126) U/L Total Creatine Kinase (55-170) U/L CK-MB (CK-2) CK-MB (CK-2) Rel Index Troponin I (0.01-0.034) ng/mL Total Protein (6.3-8.2) g/dL Albumin (3.5-5.0) g/dL Globulin (1.7-4.1) g/dL Albumin/Globulin Ratio (1.0-2.8) Urine Color Red Urine Appearance Slightly cloudy Urine pH 6.5 (4.5-8.0) Ur Specific [place] 1.010 (1.000-1.035) Urine Protein Negative (Negative) Urine Glucose (UA) Negative (Negative) g/dL Urine Ketones Negative (NEGATIVE) Urine Occult Blood 3+ H (Negative) Urine Nitrate Negative (Negative) Urine Bilirubin Negative (NEGATIVE) Urine Urobilinogen 0.2 (0.2) E.U./dL Ur Leukocyte Esterase 1+ H (NEGATIVE) Urine RBC >100/hpf (0-5/HPF) Urine WBC 5-10/hpf H (0-5/HPF) Ur Squamous Epith Cells 0-1 /hpf (0-5/HPF) Urine Bacteria None seen (None) Ur Culture Indicated? Specimen cultured MDM Narrative Medical decision making narrative: I tried myself to place an 18 [place] coude catheter. I had to skilled nurses helping me still unable to place a coude catheter. Multiple nursing attempts have been made multiple different sized catheters. Unable to pass catheter. Patient is urinating about 50-100 at a time however he still has over 500 in his bladder and his bladder is still palpable. I spoke to Dr. yadav myself in regards to catheter placement. At this time we have been trying for almost 4 hours will transfer by POV to [facility] for catheter placement. I spoke to ED physician Dr. Caicedo who agrees and accepts transfer. Discharge Plan Departure Patient Disposition: [facility] Clinical Impression: Acute urinary retention Discharge Date/Time: 05/28/19 17:16 Interventions: ED Discharge Assessment Last Done: 05/28/19 17:14 Activity Restrictions/Additional Instructions: Thank you for entrusting me with your care today. As discussed, you're being transferred to the [facility] Emergency Department where the urologist will attend to your care. Please go directly to the [facility] Emergency Department they have been alerted that you are coming. Prescriptions: No Action carbidopa-levodopa 50-200 mg tablet extended release 1 tab PO PRN PRN (Reason: unknown) RF: 0 [address] .ROUTE .MEDSUPPLY Qty: 1 RF: 0 rutin 500 mg Tablet 450 mg PO QAM RF: 0 acetaminophen [Tylenol] 325 mg Tablet 325 mg PO Q6H PRN (Reason: Pain (Scale Score 1-3)) RF: 0 PreserVision AREDS [id number] Capsule 1 cap PO DAILY RF: 0 selegiline HCl 5 mg Capsule 5 mg PO BID RF: 0 lisinopril 20 mg Tablet 20 mg PO BID Qty: 100 RF: 0 Referrals: Layton Kaiser MD [Primary Care Provider] - <Ernestina Rudolph DO - Last Filed: 05/29/19 07:19> Cosign ED Attending [place] Attestation: I was immediately available in the department for consultation. Documentation has been reviewed. I agree with assessment and plan.
--- NOTE | 2019-05-28 13:32 | ED_ITS ---
HPI - Male Genitourinary <NANCY Art - Last Filed: 05/28/19 16:54> General Chief complaint: Urogenital-Male Stated complaint: Can't urinate Time Seen by Provider: 05/28/19 13:10 Source: patient Mode of arrival: ambulatory Limitations: no limitations History of Present Illness HPI Narrative: 73-year-old male with a history of Parkinson's and hairy cell leukemia, presents emergency department today complaining of the inability to urinate since early this morning. States he felt like he was constipated (last bowel movement was 3-4 days, he had a small bowel movement today that was loose with mucus) and took some Dulcolax however he noticed that he could not urinate more than a few drops at this time. Complains of 6/10 abdominal pain with bladder fullness. Associated 3/10 sharp left-sided chest twinges while he was EN route to the emergency department. Patient denies fevers, chills, or shortness of breath, vomiting. Patient was pacing the room during history of exam. Related Data Home Medications Medication Instructions Recorded Confirmed carbidopa ER 50 mg-levodopa 200 mg 1 tab PO PRN PRN 04/08/18 05/25/19 tablet,extended release rutin 450 mg PO QAM 06/19/18 05/25/19 acetaminophen [Tylenol] 325 mg PO Q6H PRN 06/26/18 05/25/19 PreserVision AREDS 1 cap PO DAILY 08/28/18 05/25/19 selegiline HCl 5 mg PO BID 05/24/19 05/25/19 Previous Rx's Medication Instructions Recorded Disabled Parking #1 each 03/05/19 lisinopril 20 mg PO BID #100 tab 05/25/19 Allergies Allergy/AdvReac Type Severity Reaction Status Date / Time cefuroxime Allergy Mild rash/ Verified 05/01/19 13:50 itching codeine [CODEINE] Allergy Mild NAUSEA Verified 05/01/19 13:50 clindamycin AdvReac N/V Verified 05/01/19 13:50 Review of Systems <NANCY Art - Last Filed: 05/28/19 16:54> Review of Systems REVIEW OF SYSTEMS: GENERAL: Denies fever or chills. HENT: No head trauma, hearing loss or sore throat. EYES: No loss of vision, double vision, eye pain, or irritation. CARDIOVASCULAR: Complains of a twinge of chest pain, see HPI. RESPIRATORY: No shortness of breath or cough. GASTROINTESTINAL: Complains of constipation, see HPI. GENITOURINARY: Complains of urinary incontinence, see HPI. MUSCULOSKELETAL: No pain, weakness, or deformities. INTEGUMENTARY: No rash, lesions, or pruritus. NEURO: No numbness, tingling, memory loss, or confusion. PSYCH: No behavior or mood changes. PFSH <NANCY Atr - Last Filed: 05/28/19 16:54> Medical History Hairy cell leukemia (Acute) Parkinsons disease (Acute) Surgical History S/P TURP (Acute) History of tonsillectomy Social History household members: spouse Smoking Status: Former smoker alcohol intake: current substance use type: does not use Social History household members: spouse Smoking Status: Former smoker alcohol intake: current substance use type: does not use Exam <NANCY Art - Last Filed: 05/28/19 16:54> Initial Vital Signs Initial Vital Signs: Vital Signs Temperature 97.2 F L 05/28/19 13:00 Pulse Rate 88 05/28/19 13:00 Respiratory Rate 28 H 05/28/19 13:00 Blood Pressure 212/94 H 05/28/19 13:00 Pulse Oximetry 95 05/28/19 13:00 PHYSICAL EXAMINATION: GENERAL: Well groomed, alert, and cooperative. Answers questions promptly and appropriately. Vital signs noted. HENT: Normocephalic, atraumatic. . EYES: conjunctiva pink, sclera white, no periorbital swelling. NECK: Full range of motion, nontender. LYMPH: No lymphadenopathy. CHEST: Normal to inspection and without deformities. CARDIOVASCULAR: S1 and S2 sounds normal. Regular rate and rhythm, no murmurs, clicks, or bruits. No pedal edema. RESPIRATORY: Normal respiratory rate, trachea midline, airway patent. No stridor, nasal flaring or accessory muscle use. Lungs are clear in all golden without wheeze, rhonchi, or crackles. GASTROINTESTINAL: Bowel sounds normoactive, complains of epigastric pain. : Bladder is palpable upon exam. Bladder scan initially revealed 500 mL of urine in the bladder. Patient has been dribbling urine occasionally. Even after small amount of urine output bladder scan still reveals 500 mL of fluid. MUSCULOSKELETAL: Normal gait and coordination. Equal tone and mass bilaterally. EXTREMITIES: CMS intact. SKIN: Warm, dry, soft, appropriate color for ethnicity. No lesions, rashes, or wounds. NEURO: Alert and Oriented X 3. Good coordination. No ataxia, or sensory deficits, or cognitive issues. PSYCH: Appropriate affect and mood. <Ernestina Rudolph DO - Last Filed: 05/29/19 07:19> Initial Vital Signs Initial Vital Signs: Vital Signs Temperature 97.2 F L 05/28/19 13:00 Pulse Rate 88 05/28/19 13:00 Respiratory Rate 28 H 05/28/19 13:00 Blood Pressure 212/94 H 05/28/19 13:00 Pulse Oximetry 95 05/28/19 13:00 Course <NANCY Art - Last Filed: 05/28/19 16:54> Orders Ordered: Discontinued Medications Hydromorphone HCl (Dilaudid) 0.5 mg IV NOW ONE Stop: 05/28/19 14:37 Last Admin: 05/28/19 14:39 Dose: 0.5 mg Lorazepam (Ativan) 0.5 mg IV NOW ONE Stop: 05/28/19 14:05 Last Admin: 05/28/19 14:15 Dose: 0.5 mg Oxycodone/Acetaminophen (Percocet 5/325) 1 tab PO NOW ONE Stop: 05/28/19 15:45 Last Admin: 05/28/19 16:06 Dose: 1 tab Oxycodone/Acetaminophen (Percocet 5/325) 1 tab PO NOW ONE Stop: 05/28/19 16:47 Last Admin: 05/28/19 16:54 Dose: 1 tab Reevaluation(s) Reevaluation #1: Some evaluated by Dr. Rudolph Time: 14:00 Consultations Consultation #1: Consult Dr. Yadav at [facility] urology as patient this is a patient of Dr. Aurora Nicholas. Explained that we have tried placing 4 different catheters including two coudes. Dr. Yadav recommended that the attending physician dry. Dr. Rudolph attempted to insert an 18G coude without success. She then proceeded to contact Dr. Yadav again for consultation at [facility]. Patient will be transferred to the [facility] ED where Dr. Yadav will meet patient to place Elaine catheter. Emergency department provided accepts transfer, Dr. Rudolph gave patient report. Time: 15:44 Vital Signs - 8 hr 05/28/19 13:00 05/28/19 14:38 05/28/19 16:23 Temperature 97.2 F L 97.9 F Pulse Rate 88 81 86 Respiratory Rate 28 H 20 20 Blood Pressure 212/94 H Blood Pressure [Right Arm] 211/88 H Pulse Oximetry 95 95 97 <Ernestina Rudolph DO - Last Filed: 05/29/19 07:19> Orders Ordered: Discontinued Medications Hydromorphone HCl (Dilaudid) 0.5 mg IV NOW ONE Stop: 05/28/19 14:37 Last Admin: 05/28/19 14:39 Dose: 0.5 mg Lorazepam (Ativan) 0.5 mg IV NOW ONE Stop: 05/28/19 14:05 Last Admin: 05/28/19 14:15 Dose: 0.5 mg Oxycodone/Acetaminophen (Percocet 5/325) 1 tab PO NOW ONE Stop: 05/28/19 15:45 Last Admin: 05/28/19 16:06 Dose: 1 tab Oxycodone/Acetaminophen (Percocet 5/325) 1 tab PO NOW ONE Stop: 05/28/19 16:47 Last Admin: 05/28/19 16:54 Dose: 1 tab Vital Signs - 8 hr 05/28/19 13:00 05/28/19 14:38 05/28/19 16:23 Temperature 97.2 F L 97.9 F Pulse Rate 88 81 86 Respiratory Rate 28 H 20 20 Blood Pressure 212/94 H Blood Pressure [Right Arm] 211/88 H Pulse Oximetry 95 95 97 MDM - Male Genitourinary <NANCY Art - Last Filed: 05/28/19 16:54> Medical Records Attestation: I reviewed the patient's medical records. Lab Data Attestation: I reviewed the patient's lab results. Result diagrams: 05/28/19 14:04 05/28/19 14:04 Lab Results 05/28/19 05/28/19 05/28/19 Range/Units 14:04 14:04 14:04 WBC 5.1 (4.5-11.0) X10^3/uL RBC 5.11 (4.5-5.9) X10^6/uL Hgb 15.8 (13.5-17.5) g/dL Hct 44.0 (41-53) % MCV 86.1 (80-100) fL MCH 30.9 (26-34) PG MCHC 35.9 (30-36) % RDW 13.7 (11.6-14.8) % Plt Count 151 (150-400) X10^3/uL Neut % (Auto) 72.2 (50-75) % Lymph % (Auto) 15.2 L (25-40) % [place] % (Auto) 9.5 (3-14) % Eos % (Auto) 2.4 (2-4) % Baso % (Auto) 0.7 (0-2) % Neut # (Auto) 3700 (7876-2188) /uL Lymph # (Auto) 800 L (2823-4326) /uL [place] # (Auto) 500 (0-900) /uL Eos # (Auto) 100 (0-450) /uL Baso # (Auto) 0 (0-100) /uL PT 12.0 (10.1-12.7) SECONDS INR 1.0 (0.9-1.3) Sodium 143 (137-145) mmol/L Potassium 4.0 (3.4-5.1) mmol/L Chloride 102 (98-107) mmol/L Carbon Dioxide 33 H (22-32) mmol/L BUN 18 (9-20) mg/dL Creatinine 1.00 (0.66-1.25) mg/dL Estimated GFR > 60.0 (>60) mL/min BUN/Creatinine Ratio 18.0 (6-22) Glucose 109 (80-110) mg/dL Calcium 10.0 (8.4-10.2) mg/dL Total Bilirubin 0.9 (0.2-1.3) mg/dL AST 19 (17-59) IU/L ALT 14 L (21-72) IU/L Alkaline Phosphatase 122 (38-126) U/L Total Creatine Kinase 54 L (55-170) U/L CK-MB (CK-2) TNP CK-MB (CK-2) Rel Index TNP Troponin I < 0.012 (0.01-0.034) ng/mL Total Protein 7.7 (6.3-8.2) g/dL Albumin 4.6 (3.5-5.0) g/dL Globulin 3.1 (1.7-4.1) g/dL Albumin/Globulin Ratio 1.5 (1.0-2.8) Urine Color Urine Appearance Urine pH (4.5-8.0) Ur Specific [place] (1.000-1.035) Urine Protein (Negative) Urine Glucose (UA) (Negative) g/dL Urine Ketones (NEGATIVE) Urine Occult Blood (Negative) Urine Nitrate (Negative) Urine Bilirubin (NEGATIVE) Urine Urobilinogen (0.2) E.U./dL Ur Leukocyte Esterase (NEGATIVE) Urine RBC (0-5/HPF) Urine WBC (0-5/HPF) Ur Squamous Epith Cells (0-5/HPF) Urine Bacteria (None) Ur Culture Indicated? 05/28/19 Range/Units 16:05 WBC (4.5-11.0) X10^3/uL RBC (4.5-5.9) X10^6/uL Hgb (13.5-17.5) g/dL Hct (41-53) % MCV (80-100) fL MCH (26-34) PG MCHC (30-36) % RDW (11.6-14.8) % Plt Count (150-400) X10^3/uL Neut % (Auto) (50-75) % Lymph % (Auto) (25-40) % [place] % (Auto) (3-14) % Eos % (Auto) (2-4) % Baso % (Auto) (0-2) % Neut # (Auto) (1096-6303) /uL Lymph # (Auto) (1632-2612) /uL [place] # (Auto) (0-900) /uL Eos # (Auto) (0-450) /uL Baso # (Auto) (0-100) /uL PT (10.1-12.7) SECONDS INR (0.9-1.3) Sodium (137-145) mmol/L Potassium (3.4-5.1) mmol/L Chloride (98-107) mmol/L Carbon Dioxide (22-32) mmol/L BUN (9-20) mg/dL Creatinine (0.66-1.25) mg/dL Estimated GFR (>60) mL/min BUN/Creatinine Ratio (6-22) Glucose (80-110) mg/dL Calcium (8.4-10.2) mg/dL Total Bilirubin (0.2-1.3) mg/dL AST (17-59) IU/L ALT (21-72) IU/L Alkaline Phosphatase (38-126) U/L Total Creatine Kinase (55-170) U/L CK-MB (CK-2) CK-MB (CK-2) Rel Index Troponin I (0.01-0.034) ng/mL Total Protein (6.3-8.2) g/dL Albumin (3.5-5.0) g/dL Globulin (1.7-4.1) g/dL Albumin/Globulin Ratio (1.0-2.8) Urine Color Red Urine Appearance Slightly cloudy Urine pH 6.5 (4.5-8.0) Ur Specific [place] 1.010 (1.000-1.035) Urine Protein Negative (Negative) Urine Glucose (UA) Negative (Negative) g/dL Urine Ketones Negative (NEGATIVE) Urine Occult Blood 3+ H (Negative) Urine Nitrate Negative (Negative) Urine Bilirubin Negative (NEGATIVE) Urine Urobilinogen 0.2 (0.2) E.U./dL Ur Leukocyte Esterase 1+ H (NEGATIVE) Urine RBC >100/hpf (0-5/HPF) Urine WBC 5-10/hpf H (0-5/HPF) Ur Squamous Epith Cells 0-1 /hpf (0-5/HPF) Urine Bacteria None seen (None) Ur Culture Indicated? Specimen cultured Imaging Data ABD CT: Radiologist's impression: [address] [address] [address] Scan Report Signed Patient: Olu Rivas R#: [id number] : 7Acct:[id number] Age/Sex: 73 / MDate of Service: 05/28/19 Loc: ED Accession Number: [id number] Procedure: CT abdomen pelvis w con Ordering Provider: Shirley Apodaca PROCEDURE: CT ABDOMEN PELVIS W CON INDICATIONS: Abd distention, pain, constipation, difficulty urinating. TECHNIQUE: After the administration of intravenous contrast, 5 mm thick sections acquired from the diaphragm to the symphysis. 5 mm coronal and sagittal reformats were acquired. For radiation dose reduction, the following was used: automated exposure control, adjustment of mA and/or kV according to patient size. COMPARISON: None. FINDINGS: Image quality: Excellent. ABDOMEN: Lung bases: Lung bases are clear. Heart size is normal. Solid organs: Liver is normal in size and enhancement. At least 3 subcentimeter well circumscribed hypodensities are seen scattered in the liver parenchyma, and likely represent hepatic cysts. Hepatic steatosis is seen Gallbladder is within normal limits. Biliary system is non dilated. Pancreas enhances normally. Spleen is normal in size and enhancement. No adrenal nodules. Kidneys demonstrate normal size and enhancement, without hydronephrosis. Peritoneum and bowel: There is no bowel obstruction. Questionable gastric wall thickening is seen. Small hiatal hernia is also noted. No abnormal small bowel or colon wall thickening. No free fluid or free air. Nodes and vessels: No retroperitoneal or mesenteric adenopathy by size criteria. Aorta and inferior vena cava are normal in size. Miscellaneous: No ventral hernias. PELVIS: Genitourinary: Bladder wall thickness is normal. Enlarged prostate gland with mass effect on floor of urinary bladder is seen. Miscellaneous: No inguinal hernias or adenopathy. Bones: No suspicious bony lesions. Chronic appearing compression deformity involving superior endplate of L2 is seen with up to 20% loss of L2 vertebral body height. Degenerative disc disease throughout lower thoracic and lumbar spine is seen. IMPRESSION: 1. Questionable mild gastric wall thickening, which may represent infectious or inflammatory gastritis. No bowel obstruction. No abnormal small bowel or colonic wall thickening. No free fluid or free air. 2. No renal stones or hydronephrosis. 3. At least 3 well-circumscribed hypodensities seen in right and left hepatic lobes, likely representing hepatic cysts. Dictated by: Brenton Turner M.D. on 05/28/2019 at 14:07 Approved by: Brenton Turner M.D. on 05/28/2019 at 14:12 ECG Data Pacemaker model: RT unable to obtain EKG due to Parkinson's. MDM Narrative Medical decision making narrative: Exam, CT, history reveals that patient's symptoms are most likely caused by distended bladder and urinary retention. As multiple times for place a urinary catheter failed, patient is being transferred to schedule emergency department in order for the urologist, Dr. Yadav to care for patient. Dr. Yadav then contacted 3 times during this process for consultation and Dr. Rudolph was also evaluated this patient. Less likely infection due to lack of white blood cells, or acute findings on CT. Less likely cardiac chest pain due to negative troponins, no acute findings on an x-ray. While the respiratory therapist was unable to obtain an EKG, at this time patient's main symptoms revolve around bladder distention, extensive education was given to patient to alert the staff if he develops any chest pain during his stay for his transfer. <Ernestina Rudolph, DO - Last Filed: 05/29/19 07:19> Lab Data Lab Results 05/28/19 05/28/19 05/28/19 Range/Units 14:04 14:04 14:04 WBC 5.1 (4.5-11.0) X10^3/uL RBC 5.11 (4.5-5.9) X10^6/uL Hgb 15.8 (13.5-17.5) g/dL Hct 44.0 (41-53) % MCV 86.1 (80-100) fL MCH 30.9 (26-34) PG MCHC 35.9 (30-36) % RDW 13.7 (11.6-14.8) % Plt Count 151 (150-400) X10^3/uL Neut % (Auto) 72.2 (50-75) % Lymph % (Auto) 15.2 L (25-40) % [place] % (Auto) 9.5 (3-14) % Eos % (Auto) 2.4 (2-4) % Baso % (Auto) 0.7 (0-2) % Neut # (Auto) 3700 (8523-5676) /uL Lymph # (Auto) 800 L (7931-9401) /uL [place] # (Auto) 500 (0-900) /uL Eos # (Auto) 100 (0-450) /uL Baso # (Auto) 0 (0-100) /uL PT 12.0 (10.1-12.7) SECONDS INR 1.0 (0.9-1.3) Sodium 143 (137-145) mmol/L Potassium 4.0 (3.4-5.1) mmol/L Chloride 102 (98-107) mmol/L Carbon Dioxide 33 H (22-32) mmol/L BUN 18 (9-20) mg/dL Creatinine 1.00 (0.66-1.25) mg/dL Estimated GFR > 60.0 (>60) mL/min BUN/Creatinine Ratio 18.0 (6-22) Glucose 109 (80-110) mg/dL Calcium 10.0 (8.4-10.2) mg/dL Total Bilirubin 0.9 (0.2-1.3) mg/dL AST 19 (17-59) IU/L ALT 14 L (21-72) IU/L Alkaline Phosphatase 122 (38-126) U/L Total Creatine Kinase 54 L (55-170) U/L CK-MB (CK-2) TNP CK-MB (CK-2) Rel Index TNP Troponin I < 0.012 (0.01-0.034) ng/mL Total Protein 7.7 (6.3-8.2) g/dL Albumin 4.6 (3.5-5.0) g/dL Globulin 3.1 (1.7-4.1) g/dL Albumin/Globulin Ratio 1.5 (1.0-2.8) Urine Color Urine Appearance Urine pH (4.5-8.0) Ur Specific [place] (1.000-1.035) Urine Protein (Negative) Urine Glucose (UA) (Negative) g/dL Urine Ketones (NEGATIVE) Urine Occult Blood (Negative) Urine Nitrate (Negative) Urine Bilirubin (NEGATIVE) Urine Urobilinogen (0.2) E.U./dL Ur Leukocyte Esterase (NEGATIVE) Urine RBC (0-5/HPF) Urine WBC (0-5/HPF) Ur Squamous Epith Cells (0-5/HPF) Urine Bacteria (None) Ur Culture Indicated? 05/28/19 Range/Units 16:05 WBC (4.5-11.0) X10^3/uL RBC (4.5-5.9) X10^6/uL Hgb (13.5-17.5) g/dL Hct (41-53) % MCV (80-100) fL MCH (26-34) PG MCHC (30-36) % RDW (11.6-14.8) % Plt Count (150-400) X10^3/uL Neut % (Auto) (50-75) % Lymph % (Auto) (25-40) % [place] % (Auto) (3-14) % Eos % (Auto) (2-4) % Baso % (Auto) (0-2) % Neut # (Auto) (2763-4498) /uL Lymph # (Auto) (5961-2459) /uL [place] # (Auto) (0-900) /uL Eos # (Auto) (0-450) /uL Baso # (Auto) (0-100) /uL PT (10.1-12.7) SECONDS INR (0.9-1.3) Sodium (137-145) mmol/L Potassium (3.4-5.1) mmol/L Chloride (98-107) mmol/L Carbon Dioxide (22-32) mmol/L BUN (9-20) mg/dL Creatinine (0.66-1.25) mg/dL Estimated GFR (>60) mL/min BUN/Creatinine Ratio (6-22) Glucose (80-110) mg/dL Calcium (8.4-10.2) mg/dL Total Bilirubin (0.2-1.3) mg/dL AST (17-59) IU/L ALT (21-72) IU/L Alkaline Phosphatase (38-126) U/L Total Creatine Kinase (55-170) U/L CK-MB (CK-2) CK-MB (CK-2) Rel Index Troponin I (0.01-0.034) ng/mL Total Protein (6.3-8.2) g/dL Albumin (3.5-5.0) g/dL Globulin (1.7-4.1) g/dL Albumin/Globulin Ratio (1.0-2.8) Urine Color Red Urine Appearance Slightly cloudy Urine pH 6.5 (4.5-8.0) Ur Specific [place] 1.010 (1.000-1.035) Urine Protein Negative (Negative) Urine Glucose (UA) Negative (Negative) g/dL Urine Ketones Negative (NEGATIVE) Urine Occult Blood 3+ H (Negative) Urine Nitrate Negative (Negative) Urine Bilirubin Negative (NEGATIVE) Urine Urobilinogen 0.2 (0.2) E.U./dL Ur Leukocyte Esterase 1+ H (NEGATIVE) Urine RBC >100/hpf (0-5/HPF) Urine WBC 5-10/hpf H (0-5/HPF) Ur Squamous Epith Cells 0-1 /hpf (0-5/HPF) Urine Bacteria None seen (None) Ur Culture Indicated? Specimen cultured MDM Narrative Medical decision making narrative: I tried myself to place an 18 [place] coude catheter. I had to skilled nurses helping me still unable to place a coude catheter. Multiple nursing attempts have been made multiple different sized catheters. Unable to pass catheter. Patient is urinating about 50-100 at a time however he still has over 500 in his bladder and his bladder is still palpable. I spoke to Dr. yadav myself in regards to catheter placement. At this time we have been trying for almost 4 hours will transfer by POV to [facility] for catheter placement. I spoke to ED physician Dr. Caicedo who agrees and accepts transfer. Discharge Plan Departure Patient Disposition: [facility] Clinical Impression: Acute urinary retention Discharge Date/Time: 05/28/19 17:16 Interventions: ED Discharge Assessment Last Done: 05/28/19 17:14 Activity Restrictions/Additional Instructions: Thank you for entrusting me with your care today. As discussed, you're being transferred to the [facility] Emergency Department where the urologist will attend to your care. Please go directly to the [facility] Emergency Department they have been alerted that you are coming. Prescriptions: No Action carbidopa-levodopa 50-200 mg tablet extended release 1 tab PO PRN PRN (Reason: unknown) RF: 0 [address]ing .ROUTE .MEDSUPPLY Qty: 1 RF: 0 rutin 500 mg Tablet 450 mg PO QAM RF: 0 acetaminophen [Tylenol] 325 mg Tablet 325 mg PO Q6H PRN (Reason: Pain (Scale Score 1-3)) RF: 0 PreserVision AREDS [id number] Capsule 1 cap PO DAILY RF: 0 selegiline HCl 5 mg Capsule 5 mg PO BID RF: 0 lisinopril 20 mg Tablet 20 mg PO BID Qty: 100 RF: 0 Referrals: Layton Kaiser MD [Primary Care Provider] - <Ernestina Rudolph DO - Last Filed: 05/29/19 07:19> Cosign ED Attending Cosfloresature Attestation: I was immediately available in the department for consultation. Documentation has been reviewed. I agree with assessment and plan.
--- NOTE | 2019-05-28 13:42 | DI.CT.S_ITS ---
PROCEDURE: CT ABDOMEN PELVIS W CON INDICATIONS: Abd distention, pain, constipation, difficulty urinating. TECHNIQUE: After the administration of intravenous contrast, 5 mm thick sections acquired from the diaphragm to the symphysis. 5 mm coronal and sagittal reformats were acquired. For radiation dose reduction, the following was used: automated exposure control, adjustment of mA and/or kV according to patient size. COMPARISON: None. FINDINGS: Image quality: Excellent. ABDOMEN: Lung bases: Lung bases are clear. Heart size is normal. Solid organs: Liver is normal in size and enhancement. At least 3 subcentimeter well circumscribed hypodensities are seen scattered in the liver parenchyma, and likely represent hepatic cysts. Hepatic steatosis is seen Gallbladder is within normal limits. Biliary system is non dilated. Pancreas enhances normally. Spleen is normal in size and enhancement. No adrenal nodules. Kidneys demonstrate normal size and enhancement, without hydronephrosis. Peritoneum and bowel: There is no bowel obstruction. Questionable gastric wall thickening is seen. Small hiatal hernia is also noted. No abnormal small bowel or colon wall thickening. No free fluid or free air. Nodes and vessels: No retroperitoneal or mesenteric adenopathy by size criteria. Aorta and inferior vena cava are normal in size. Miscellaneous: No ventral hernias. PELVIS: Genitourinary: Bladder wall thickness is normal. Enlarged prostate gland with mass effect on floor of urinary bladder is seen. Miscellaneous: No inguinal hernias or adenopathy. Bones: No suspicious bony lesions. Chronic appearing compression deformity involving superior endplate of L2 is seen with up to 20% loss of L2 vertebral body height. Degenerative disc disease throughout lower thoracic and lumbar spine is seen. IMPRESSION: 1. Questionable mild gastric wall thickening, which may represent infectious or inflammatory gastritis. No bowel obstruction. No abnormal small bowel or colonic wall thickening. No free fluid or free air. 2. No renal stones or hydronephrosis. 3. At least 3 well-circumscribed hypodensities seen in right and left hepatic lobes, likely representing hepatic cysts. Dictated by: Brenton Turner M.D. on 05/28/2019 at 14:07 Approved by: Brenton Turner M.D. on 05/28/2019 at 14:12
[2019-05-28] MEDS: LORazepam 2 MG/ML INJ 0.5 MG IV (14:15)
[2019-05-28 14:19] LABS: Add Manual Diff / Slide Review NO; Basophils Absolute Auto 0 /uL (0-100); Basophils Percent Auto 0.7 % (0-2); Eosinophils Absolute Auto 100 /uL (0-450); Eosinophils Percent Auto 2.4 % (2-4); Hemoglobin 15.8 g/dL (13.5-17.5); Lymphocytes Absolute Auto 800 /uL (1100-4500); Lymphocytes Percent Auto 15.2 % (25-40); Mean Corpuscular HGB Conc 35.9 % (30-36); Mean Corpuscular Hemoglobin 30.9 PG (26-34); Mean Corpuscular Volume 86.1 fL (80-100); Monocytes Absolute Auto 500 /uL (0-900); Monocytes Percent Auto 9.5 % (3-14); Neutrophils Absolute Auto 3700 /uL (1500-7000); Neutrophils Percent Auto 72.2 % (50-75); Platelet Count 151 X10^3/uL (150-400); Red Blood Cell Count 5.11 X10^6/uL (4.5-5.9); Red Cell Distribution Width 13.7 % (11.6-14.8); White Blood Cell Count 5.1 X10^3/uL (4.5-11.0)
[2019-05-28 14:22] LABS: Alanine Aminotransferase 14 IU/L (21-72); Albumin 4.6 g/dL (3.5-5.0); Albumin Globulin Ratio 1.5 (1.0-2.8); Alkaline Phosphatase 122 U/L (38-126); Aspartate Aminotransferase 19 IU/L (17-59); Bilirubin Total 0.9 mg/dL (0.2-1.3); Blood Urea Nitrogen 18 mg/dL (9-20); Carbon Dioxide 33 mmol/L (22-32); Chloride 102 mmol/L (98-107); Creatine Kinase 54 U/L (55-170); Estimated Glomerular Filt Rate > 60.0 mL/min (>60); Globulin 3.1 g/dL (1.7-4.1); Glucose 109 mg/dL (80-110); HEMOLYSIS < 15 (0-50); Sodium 143 mmol/L (137-145); Total Protein 7.7 g/dL (6.3-8.2)
--- NOTE | 2019-05-28 14:29 | PC.NURSE ---
asencio cath attempt x 3, unable to pass catheter fully into the bladder, attempted to flush urethra with saline, unable to instill any saline, advised, plan is to scan abd
[2019-05-28 14:33] LABS: Troponin I < 0.012 ng/mL (0.01-0.034)
[2019-05-28 14:38] VITALS: PULSE 81; RESP 20; O2SAT 95
--- NOTE | 2019-05-28 14:38 | PC.NURSE ---
pt declines BP check
[2019-05-28] MEDS: HYDROMORPHONE 1 MG INJ 0.5 MG IV (14:39)
--- NOTE | 2019-05-28 14:44 | PC.NURSE ---
pt to CT with tech on stretcher
--- NOTE | 2019-05-28 14:51 | PC.NURSE ---
pt back from CT
--- NOTE | 2019-05-28 15:59 | PC.NURSE ---
pt ambulating to bathroom
[2019-05-28] MEDS: OXYCODONE/ACETAMINOPHEN 5/325 TABLET 1 TAB PO ×2 (16:06→16:54)
[2019-05-28 16:23] VITALS: BP 211/88; PULSE 86; RESP 20; TEMP 36.6; O2SAT 97
[2019-05-28 16:57] LABS: Bacteria Urine None Seen
[2019-05-28 16:58] LABS: Bilirubin Urine UA NEGATIVE (NEGATIVE); Glucose Urine UA NEGATIVE (Negative); Ketones Urine UA NEGATIVE (NEGATIVE); Leukocyte Esterase Urine UA 1+ (NEGATIVE); Nitrite Urine UA NEGATIVE (Negative); Occult Blood Urine UA 3+ (Negative); Protein Urine UA NEGATIVE (Negative); Urobilinogen Urine UA 0.2 E.U./dL (0.2); pH Urine UA 6.5 (4.5-8.0)
[2019-05-28 17:04] LABS: Appearance Urine UA Slightly Cloudy; Color Urine UA Red
[2019-05-28 17:05] LABS: Culture Indicated Urine Specimen Cultured; RBC Urine >100/HPF (0-5/HPF); Squamous Epithelial Cell Urine 0-1 /HPF (0-5/HPF); WBC Urine 5-10/HPF (0-5/HPF)
== END 2019-05-28 17:16 | disposition short-term general hospital (02) ==
PROVIDERS: Emergency Provider Nurse Practitioner; Family Provider Family Medicine; PCP Family Medicine
DX: R33.8 Other retention of urine (principal); R07.9 Chest pain, unspecified; Z95.0 Presence of cardiac pacemaker
CPT/HCPCS: 36591; 51798; 71045; 74177; 80053; 81001; 82550; 84484; 85025; 85610; 87077; 87086; 87186; 96374; 96375; 99283; 99285; J1170; J2060; Q9967

== ENCOUNTER → 2019-08-04 14:59 | Outpatient (CLI) | payer MEDICARE, OTHER, SELFPAY ==
[2019-05-24 13:24] VITALS: BMI 26.0
[2019-08-04 15:06] LABS: Bacteria Urine None Seen
[2019-08-04 15:31] LABS: Add Manual Diff / Slide Review NO; Appearance Urine UA CLEAR; Basophils Absolute Auto 0 /uL (0-100); Basophils Percent Auto 0.8 % (0-2); Bilirubin Urine UA NEGATIVE (NEGATIVE); Color Urine UA YELLOW; Eosinophils Absolute Auto 200 /uL (0-450); Eosinophils Percent Auto 4.1 % (2-4); Glucose Urine UA NEGATIVE (Negative); Hematocrit 39.3 % (41-53); Hemoglobin 13.8 g/dL (13.5-17.5); Ketones Urine UA NEGATIVE (NEGATIVE); Leukocyte Esterase Urine UA TRACE (NEGATIVE); Lymphocytes Absolute Auto 600 /uL (1100-4500); Mean Corpuscular HGB Conc 35.1 % (30-36); Mean Corpuscular Hemoglobin 30.8 PG (26-34); Mean Corpuscular Volume 87.7 fL (80-100); Monocytes Absolute Auto 400 /uL (0-900); Monocytes Percent Auto 8.9 % (3-14); Neutrophils Absolute Auto 3100 /uL (1500-7000); Neutrophils Percent Auto 73.2 % (50-75); Nitrite Urine UA NEGATIVE (Negative); Occult Blood Urine UA 3+ (Negative); Platelet Count 139 X10^3/uL (150-400); Protein Urine UA TRACE (Negative); Red Blood Cell Count 4.47 X10^6/uL (4.5-5.9); Specific Gravity Urine UA 1.025 (1.000-1.035); Urobilinogen Urine UA 0.2 E.U./dL (0.2); White Blood Cell Count 4.3 X10^3/uL (4.5-11.0)
[2019-08-04 15:37] LABS: Culture Indicated Urine Cult Not Indicated; RBC Urine 10-30/HPF (0-5/HPF); WBC Urine 0-1/HPF (0-5/HPF)
== END ==
PROVIDERS: PCP Family Medicine; Visit Provider Hospitalist
DX: R31.9 Hematuria, unspecified (principal)
CPT/HCPCS: 36415; 81001; 85025

== ENCOUNTER → 2019-09-15 13:16 | Outpatient (CLI) | payer MEDICARE, OTHER, SELFPAY ==
[2019-05-24 13:24] VITALS: BMI 26.0
[2019-09-15 14:47] LABS: Appearance Urine UA SL CLOUDY; Bilirubin Urine UA NEGATIVE (NEGATIVE); Color Urine UA YELLOW; Glucose Urine UA NEGATIVE (Negative); Ketones Urine UA TRACE (NEGATIVE); Leukocyte Esterase Urine UA NEGATIVE (NEGATIVE); Nitrite Urine UA NEGATIVE (Negative); Occult Blood Urine UA 3+ (Negative); Protein Urine UA 1+ (Negative); Urobilinogen Urine UA 0.2 E.U./dL (0.2); pH Urine UA 5.5 (4.5-8.0)
[2019-09-15 15:09] LABS: Bacteria Urine Few (2-10); RBC Urine >100/HPF (0-5/HPF); WBC Urine 10-30/HPF (0-5/HPF)
[2019-09-15 15:10] LABS: Culture Indicated Urine Specimen Cultured
== END ==
PROVIDERS: PCP Family Medicine; Visit Provider Urology
DX: R31.0 Gross hematuria (principal)
CPT/HCPCS: 81001; 87077; 87086; 87186

== ENCOUNTER 2019-09-30 23:54 | Emergency (ER) | payer MEDICARE, OTHER, SELFPAY ==
[2019-05-24 13:24] VITALS: BMI 26.0
[2019-10-01 00:07] VITALS: BP 148/86; PULSE 91; RESP 15; TEMP 36; O2SAT 97; BMI 25.8
--- NOTE | 2019-10-01 00:22 | ED.SKABFB ---
HPI - Skin/Abscess/Foreign Bdy General Chief complaint: Skin/Abscess/Foreign Body Stated complaint: rash all over Time Seen by Provider: 09/30/19 23:59 Source: patient and family Mode of arrival: Family Vehicle Limitations: no limitations History of Present Illness HPI narrative: 74-year-old male here for evaluation of systemic rash. Is here with his . They stated that just noticed this rash this evening. No new exposures except that he drank an Ensure this morning for the 1st time that was many hours prior to the onset of this rash. Patient does states there are some areas that her itching. No problems breathing. Related Data Home Medications Medication Instructions Recorded Confirmed carbidopa ER 50 mg-levodopa 200 mg 1 tab PO PRN PRN 04/08/18 08/04/19 tablet,extended release rutin 450 mg PO QAM 06/19/18 08/04/19 acetaminophen [Tylenol] 325 mg PO Q6H PRN 06/26/18 08/04/19 PreserVision AREDS 1 cap PO DAILY 08/28/18 08/04/19 tamsulosin 0.4 mg capsule 0.4 mg PO DAILY 08/04/19 08/04/19 Previous Rx's Medication Instructions Recorded Disabled Parking #1 each 03/05/19 lisinopril 20 mg tablet 20 mg PO BID #180 tab 06/26/19 Allergies Allergy/AdvReac Type Severity Reaction Status Date / Time cefuroxime Allergy Mild rash/ Verified 08/04/19 14:31 itching codeine [CODEINE] Allergy Mild NAUSEA Verified 08/04/19 14:31 clindamycin AdvReac N/V Verified 08/04/19 14:31 Review of Systems Constitutional Constitutional: Denies fever(s) Cardiovascular Cardiovascular: Denies chest pain and Denies dyspnea Respiratory Respiratory: Denies dyspnea Integumentary/Breasts Skin/Breast: Reports rash Neurologic Neurologic: Denies behavioral changes Psychiatric Psychiatric: Denies behavioral changes Hematologic/Lymphatic Hematologic/Lymphatic: Denies easy bleeding and Denies easy bruising Patient History Medical History Hairy cell leukemia (Acute) Parkinsons disease (Acute) Social History household members: spouse Smoking Status: Former smoker alcohol intake: current substance use type: does not use alcohol intake frequency: holidays/special occasions only Substance Use Type: does not use Exam Initial Vital Signs Initial Vital Signs: Vital Signs Temperature 96.8 F L 10/01/19 00:07 Pulse Rate 91 H 10/01/19 00:07 Respiratory Rate 15 10/01/19 00:07 Blood Pressure 148/86 H 10/01/19 00:07 Pulse Oximetry 97 10/01/19 00:07 Const General: cooperative and comfortable Resp Effort & Inspection: normal respiratory effort Auscultation: clear to auscultation bilaterally Cardio Rate: regular rate Rhythm: regular rhythm Skin General: No erythema, No fluctuance, No induration and No petechiae Rashes: rashes noted Wounds: no wounds Neuro General: alert and awake Extrem General: normal to inspection and capillary refill normal Course Orders Ordered: Discontinued Medications Diphenhydramine HCl (Benadryl) 25 mg PO NOW ONE Stop: 10/01/19 00:22 Last Admin: 10/01/19 00:30 Dose: Not Given Documented by: AUTUMNOTEM Vital Signs Vital signs: Vital Signs - 8 hr 10/01/19 00:07 Temperature 96.8 F L Pulse Rate 91 H Respiratory Rate 15 Blood Pressure 148/86 H Pulse Oximetry 97 MDM - Skin/Abscess/Foreign Bdy MDM Narrative Medical decision making narrative: Patient with a non petechial fine rash located systemically. Not involving the mucous membranes of the palms or soles of his feet. No fevers. Physical exam is not consistent with anaphylaxis. Unsure the exact etiology. It does have very cell leukemia. Patient stated that he would just rather [employer] the Benadryl at the supermarket. Will hold on any steroids secondary to his leukemia. Patient was given return precautions and follow-up instructions. He expressed understanding agreement plan. Discharge Plan Departure Patient Disposition: Home Clinical Impression: Rash Discharge Date/Time: 10/01/19 00:31 Instructions: DI for Rash Activity Restrictions/Additional Instructions: Recommend that you continue all of your medications as directed. You can take Benadryl like we discussed. You can use the topical steroid cream and very small areas like we discussed. Return to the emergency department for any new or worsening symptoms Prescriptions: No Action carbidopa-levodopa 50-200 mg tablet extended release 1 tab PO PRN PRN (Reason: unknown) RF: 0 (DME) Disabled Parking 0 .ROUTE .MEDSUPPLY Qty: 1 RF: 0 lisinopril 20 mg tablet 20 mg PO BID Qty: 180 RF: 3 tamsulosin [Flomax] 0.4 mg capsule 0.4 mg PO DAILY RF: 0 rutin 500 mg Tablet 450 mg PO QAM RF: 0 acetaminophen [Tylenol] 325 mg Tablet 325 mg PO Q6H PRN (Reason: Pain (Scale Score 1-3)) RF: 0 PreserVision AREDS [id number] Capsule 1 cap PO DAILY RF: 0 Referrals: Layton Kaiser MD [Primary Care Provider] -
== END 2019-10-01 00:31 | disposition home or self-care (01) ==
PROVIDERS: Emergency Provider Emergency Medicine; PCP Family Medicine
DX: R21 Rash and other nonspecific skin eruption (principal)
CPT/HCPCS: 99282

== ENCOUNTER → 2019-11-11 12:13 | Outpatient (CLI) | payer MEDICARE, OTHER, SELFPAY ==
[2019-05-24 13:24] VITALS: BMI 26.0
[2019-11-11 13:03] LABS: Add Manual Diff / Slide Review NO; Basophils Absolute Auto 0 /uL (0-100); Basophils Percent Auto 0.6 % (0-2); Eosinophils Absolute Auto 100 /uL (0-450); Eosinophils Percent Auto 3.4 % (2-4); Hematocrit 41.3 % (41-53); Hemoglobin 14.5 g/dL (13.5-17.5); Lymphocytes Absolute Auto 500 /uL (1100-4500); Lymphocytes Percent Auto 11.1 % (25-40); Mean Corpuscular Hemoglobin 30.9 PG (26-34); Mean Corpuscular Volume 88.3 fL (80-100); Monocytes Absolute Auto 300 /uL (0-900); Monocytes Percent Auto 7.7 % (3-14); Neutrophils Absolute Auto 3200 /uL (1500-7000); Neutrophils Percent Auto 77.2 % (50-75); Platelet Count 148 X10^3/uL (150-400); Red Blood Cell Count 4.68 X10^6/uL (4.5-5.9); Red Cell Distribution Width 13.2 % (11.6-14.8); White Blood Cell Count 4.2 X10^3/uL (4.5-11.0)
[2019-11-11 13:14] LABS: Alanine Aminotransferase 6 IU/L (<50); Albumin 4.1 g/dL (3.5-5.0); Albumin Globulin Ratio 1.6 (1.0-2.8); Alkaline Phosphatase 58 U/L (38-126); Aspartate Aminotransferase 16 IU/L (17-59); Bilirubin Total 0.7 mg/dL (0.2-1.3); Blood Urea Nitrogen 20 mg/dL (9-20); Calcium 9.4 mg/dL (8.4-10.2); Carbon Dioxide 32 mmol/L (22-32); Chloride 99 mmol/L (98-107); Estimated Glomerular Filt Rate > 60.0 mL/min (>60); Globulin 2.5 g/dL (1.7-4.1); Glucose 112 mg/dL (80-110); HEMOLYSIS < 15 (0-50); Lactate Dehydrogenase 361 U/L (313-618); Potassium 4.3 mmol/L (3.4-5.1); Sodium 139 mmol/L (137-145); Total Protein 6.6 g/dL (6.3-8.2)
[2019-11-11 13:45] LABS: Prostate Specific Antigen 0.571 ng/mL (0.10-4.00)
== END ==
PROVIDERS: PCP Family Medicine; Visit Provider Radiology Radiation Oncology
DX: C61 Malignant neoplasm of prostate (principal); C91.40 Hairy cell leukemia not having achieved remission
CPT/HCPCS: 36415; 80053; 83615; 84153; 85025

== ENCOUNTER → 2020-04-07 12:57 | Outpatient (CLI) | payer MEDICARE, OTHER, SELFPAY ==
[2019-05-24 13:24] VITALS: BMI 26.0
== END ==
PROVIDERS: PCP Family Medicine; Referring Provider Family Medicine; Visit Provider Internal Medicine Hematology & Oncology
DX: C91.41 Hairy cell leukemia, in remission (principal); Z85.46 Personal history of malignant neoplasm of prostate
CPT/HCPCS: 36415

== ENCOUNTER 2020-06-05 14:17 | Observation (INO) | payer MEDICARE, OTHER, SELFPAY ==
[2019-05-24 13:24] VITALS: BMI 26.0
[2020-06-05] VITALS (8 sets, daily range): BP systolic 131–190; BP diastolic 72–86; PULSE 62–73; RESP 16–22; TEMP 36.1–36.8; O2SAT 93–98; BMI 25.8
--- NOTE | 2020-06-05 | DI.US.S_ITS ---
PROCEDURE: US CAROTID DOPPLER BI INDICATIONS: TIA TECHNIQUE: Color and pulse Doppler interrogation was performed of both carotid systems, with image documentation and velocity measurements. COMPARISON: [facility], CT, CT ANGIO HEAD AND NECK, 06/05/2020, 18:24. FINDINGS: Stenosis calculations are based on SRU (Society of Radiologists in Ultrasound) criteria. The flow velocities and the arterial waveforms are normal within both carotid arterial systems. Atherosclerotic plaque is seen on both sides. The estimated degree of internal carotid artery stenosis is less than 50%. Antegrade flow is confirmed within both vertebral arteries. IMPRESSION: No hemodynamically significant stenosis is seen. Atherosclerotic plaque is noted bilaterally. Dictated by: Navin Bright M.D. on 06/06/2020 at 9:15 Approved by: Navin Bright M.D. on 06/06/2020 at 9:17
--- NOTE | 2020-06-05 14:31 | DI.RAD.S_ITS ---
PROCEDURE: XR CHEST 1V INDICATIONS: chest pain TECHNIQUE: One view of the chest was acquired. COMPARISON: [facility], CR, XR CHEST 1V, 05/28/2019, 14:40. FINDINGS: Surgical changes and devices: Electronic apparatus is seen overlying the left chest with leads extending cranially along the left neck. This is unchanged. Lungs and pleura: Lungs are clear. No pleural effusions or pneumothorax. Mediastinum: Mediastinal contours appear normal. Heart size is normal. Bones and chest wall: No suspicious bony lesions. Overlying soft tissues appear unremarkable. IMPRESSION: Unremarkable chest radiograph. No acute cardiopulmonary process is evident. Dictated by: Lance Mahajan M.D. on 06/05/2020 at 14:14 Approved by: Lance Mahajan M.D. on 06/05/2020 at 14:14
--- NOTE | 2020-06-05 14:44 | ED.HA ---
HPI - Headache General Chief Complaint: Headache Stated Complaint: Lt side tingling from jaw down arm Time Seen by Provider: 06/05/20 14:36 Mode of arrival: Ambulatory Limitations: no limitations History of Present Illness HPI Narrative: Patient is a 75-year-old male with history of hairy cell leukemia and Parkinson's who presents with left sided numbness and headache. He said his headache actually started last evening it was so bad he could not get comfortable he tossed and turned all night. He noticed that he has some left-sided numbness which included is arm and leg. Today he got the numbness went up to his jaw. He denies any chest pain or heart palpitations or shortness of breath. He has no weakness facial droop or difficulty speaking. However his numbness is quite persistent. He thought he could wait in till Saturday when he is scheduled to have a TURP, he went for COVID screening test today and then came to the ER for evaluation of his numbness. Related Data Home Medications Medication Instructions Recorded Confirmed carbidopa ER 50 mg-levodopa 200 mg 1 tab PO QID 04/08/18 06/05/20 tablet,extended release rutin 450 mg PO QAM 06/19/18 06/05/20 acetaminophen [Tylenol] 325 mg PO Q6H PRN 06/26/18 06/05/20 PreserVision AREDS 1 cap PO DAILY 08/28/18 06/05/20 tamsulosin 0.4 mg capsule 0.4 mg PO DAILY 08/04/19 06/05/20 carbidopa-levodopa 25 - 100 tab PO PRN PRN 06/05/20 06/05/20 omeprazole 20 mg PO DAILY 06/05/20 06/05/20 Previous Rx's Medication Instructions Recorded Disabled Parking #1 each 03/05/19 amlodipine 5 mg tablet 5 mg PO DAILY #90 tab 05/24/20 Allergies Allergy/AdvReac Type Severity Reaction Status Date / Time cefuroxime Allergy Mild rash/ Verified 08/04/19 14:31 itching codeine [CODEINE] Allergy Mild NAUSEA Verified 08/04/19 14:31 clindamycin AdvReac N/V Verified 08/04/19 14:31 Review of Systems Review of Systems Narrative: GENERAL: Denies chills, fatigue, malaise, fever, sweats, travel HEENT: Denies sinus pain, ear pain, sore throat, difficulty swallowing, neck pain RESPIRATORY: Denies dyspnea, cough, wheezing, hemoptysis, sputum. CARDIOVASCULAR: Denies chest pain, palpitations, orthopnea, edema GASTROINTESTINAL: Denies nausea, vomiting, abdominal pain, diarrhea, constipation, melena. : Denies dysuria, frequency, incontinence, hematuria, urinary retention, flank pain. MUSCULOSKELETAL: Denies weakness, joint pain, or bony pain SKIN: No rash, no erythema, no pruritus NEUROLOGIC: See HPI PSYCHIATRIC: No concerning psychosocial issues. 12 point review of systems is negative except for those stated above and HPI Patient History Medical History Hairy cell leukemia (Acute) Parkinsons disease (Acute) Surgical History History of tonsillectomy S/P TURP (Acute) Social History household members: spouse Smoking Status: Former smoker alcohol intake: current substance use type: does not use Smoking Status: Former smoker alcohol intake frequency: holidays/special occasions only Substance Use Type: does not use Exam Initial Vital Signs Initial Vital Signs: Vital Signs Pulse Rate 72 06/05/20 14:20 Respiratory Rate 20 06/05/20 14:20 Pulse Oximetry 97 06/05/20 14:20 GENERAL: Alert pleasant well-appearing male and in no acute distress. HEENT: Head atraumatic,EOMI, pupils reactive, face symmetric, moist mucous membranes CARDIOVASCULAR: Regular rate and rhythm without murmurs, rubs or gallops. RESPIRATORY: Breath sounds equal bilaterally, no wheezes rales or rhonchi. ABDOMEN: Soft, nontender. Normoactive bowel sounds all 4 quadrants. No guarding or rebound. EXTREMITIES: Normal range of motion, no clubbing or edema. Neurovascularly intact NEUROLOGICAL: Alert and oriented x4.Normal gait and speech. Cranial nerves II through XII grossly intact. Good [id number], good [id number], strength equal bilaterally, no dysarthria or aphasia, sensation is different on the left side versus right side, no visual changes, no facial droop SKIN: Warm, dry, no laceration, no petechiae, no rashes or lesions. Scores NIH Stroke Scale Level of Conciousness: Alert, keenly responsive Ask month/age: Answers both questions correctly. Open/close eyes, close hand: Performs both tasks correctly Best gaze horizontal: Normal Visual golden: No visual loss Facial palsy: Normal symetrical movement Left arm drift: No drift for full 10 sec Right arm drift: No drift for full 10 sec Left leg drift: No drift for full 10 sec Right leg drift: No drift for full 10 sec Limb ataxia: Absent Sensory on face/arms/legs: Mild to moderate sensory loss, can tell touch Best language: No aphasia, normal Dysarthria: Normal Extinction or inattention: No abnormality Total NIH Stroke scale score: 1 Course Orders Ordered: ED Orders 06/05/20 14:29 EKG-12 Lead Stat 06/05/20 14:31 XR chest 1V Stat 06/05/20 14:40 Complete Blood Count AUTO DIFF Stat Comprehensive Metabolic Panel Stat Lipase Stat Partial Thromboplastin Time Stat Prothrombin Time INR Stat Troponin & CK Cardiac Panel Stat 06/05/20 14:51 CT head/brain wo con Stat 06/05/20 15:19 Urine Culture Stat Urine Microscopic Stat Acetaminophen (Tylenol) 650 mg PO Q6HR PRN PRN Reason: Fever/Mild Pain (1-3) Hydrocodone Bitart/Acetaminophen ([place] 5/325) 1 tab PO Q4HR PRN PRN Reason: Pain, Moderate (4-6) Amlodipine Besylate (Norvasc) 5 mg PO DAILY [facility] Aspirin (Aspirin Ec) 325 mg PO DAILY [facility] Carbidopa/Levodopa (Sinemet Er 50-200 Tab) 1 each PO QID [facility] Last Admin: 06/05/20 17:49 Dose: 1 each Documented by: BRAYAN Levofloxacin (Levaquin) 500 mg in 100 mls @ 100 mls/hr IV Q24H [facility] Naloxone HCl (Narcan) 0.2 mg IV Q2MIN PRN PRN Reason: Opiate Reversal Ondansetron HCl (Zofran) 4 mg IV Q8HR PRN PRN Reason: Nausea And Vomiting Pantoprazole Sodium (Protonix) 20 mg PO 0600 [facility] Tamsulosin HCl (Flomax) 0.4 mg PO DAILY [facility] Discontinued Medications Aspirin (Aspirin Chew) 324 mg PO NOW ONE Stop: 06/05/20 15:49 Last Admin: 06/05/20 16:09 Dose: 324 mg Documented by: MARGIE Vital Signs Vital signs: Vital Signs - 8 hr 06/05/20 14:20 Pulse Rate 72 Respiratory Rate 20 Pulse Oximetry 97 MDM - Headache Lab Data Attestation: I reviewed the patient's lab results. Result diagrams: 06/05/20 14:40 06/05/20 14:40 Labs: Lab Results 06/05/20 06/05/20 06/05/20 Range/Units 14:40 14:40 14:40 WBC 4.2 L (4.5-11.0) X10^3/uL RBC 4.97 (4.5-5.9) X10^6/uL Hgb 14.7 (13.5-17.5) g/dL Hct 42.9 (41-53) % MCV 86.3 (80-100) fL MCH 29.6 (26-34) PG MCHC 34.3 (30-36) % RDW 12.7 (11.6-14.8) % Plt Count 154 (150-400) X10^3/uL Neut % (Auto) 75.1 H (50-75) % Lymph % (Auto) 12.0 L (25-40) % [place] % (Auto) 8.2 (3-14) % Eos % (Auto) 4.0 (2-4) % Baso % (Auto) 0.7 (0-2) % Neut # (Auto) 3200 (5843-2341) /uL Lymph # (Auto) 500 L (2786-5741) /uL [place] # (Auto) 300 (0-900) /uL Eos # (Auto) 200 (0-450) /uL Baso # (Auto) 0 (0-100) /uL PT 12.2 (10.1-12.7) SECONDS INR 1.1 (0.9-1.3) APTT 29 D (26.4-36.2) SECONDS Sodium 137 (137-145) mmol/L Potassium 4.4 (3.4-5.1) mmol/L Chloride 102 (98-107) mmol/L Carbon Dioxide 30 (22-32) mmol/L BUN 14 (9-20) mg/dL Creatinine 0.83 (0.66-1.25) mg/dL Estimated GFR > 60.0 (>60) mL/min BUN/Creatinine Ratio 16.9 (6-22) Glucose 114 H (80-110) mg/dL Calcium 9.6 (8.4-10.2) mg/dL Total Bilirubin 0.7 (0.2-1.3) mg/dL AST 17 (17-59) IU/L ALT 5 (<50) IU/L Alkaline Phosphatase 67 (38-126) U/L Total Creatine Kinase 38 L (55-170) U/L CK-MB (CK-2) TNP CK-MB (CK-2) Rel Index TNP Troponin I < 0.012 (0.01-0.034) ng/mL Total Protein 6.9 (6.3-8.2) g/dL Albumin 4.3 (3.5-5.0) g/dL Globulin 2.6 (1.7-4.1) g/dL Albumin/Globulin Ratio 1.7 (1.0-2.8) Lipase 57 (23-300) U/L Urine RBC (0-5/HPF) Urine WBC (0-5/HPF) Ur Squamous Epith Cells (0-5/HPF) Urine Bacteria (None) Ur Culture Indicated? 06/05/20 Range/Units 15:19 WBC (4.5-11.0) X10^3/uL RBC (4.5-5.9) X10^6/uL Hgb (13.5-17.5) g/dL Hct (41-53) % MCV (80-100) fL MCH (26-34) PG MCHC (30-36) % RDW (11.6-14.8) % Plt Count (150-400) X10^3/uL Neut % (Auto) (50-75) % Lymph % (Auto) (25-40) % [place] % (Auto) (3-14) % Eos % (Auto) (2-4) % Baso % (Auto) (0-2) % Neut # (Auto) (0289-8535) /uL Lymph # (Auto) (7908-9008) /uL [place] # (Auto) (0-900) /uL Eos # (Auto) (0-450) /uL Baso # (Auto) (0-100) /uL PT (10.1-12.7) SECONDS INR (0.9-1.3) APTT (26.4-36.2) SECONDS Sodium (137-145) mmol/L Potassium (3.4-5.1) mmol/L Chloride (98-107) mmol/L Carbon Dioxide (22-32) mmol/L BUN (9-20) mg/dL Creatinine (0.66-1.25) mg/dL Estimated GFR (>60) mL/min BUN/Creatinine Ratio (6-22) Glucose (80-110) mg/dL Calcium (8.4-10.2) mg/dL Total Bilirubin (0.2-1.3) mg/dL AST (17-59) IU/L ALT (<50) IU/L Alkaline Phosphatase (38-126) U/L Total Creatine Kinase (55-170) U/L CK-MB (CK-2) CK-MB (CK-2) Rel Index Troponin I (0.01-0.034) ng/mL Total Protein (6.3-8.2) g/dL Albumin (3.5-5.0) g/dL Globulin (1.7-4.1) g/dL Albumin/Globulin Ratio (1.0-2.8) Lipase (23-300) U/L Urine RBC 30-100/hpf H (0-5/HPF) Urine WBC 5-10/hpf H (0-5/HPF) Ur Squamous Epith Cells 0-1 /hpf (0-5/HPF) Urine Bacteria Moderate (10-30) H (None) Ur Culture Indicated? Specimen cultured Urine Dip Bedside Urine Glucose Negative Bedside Urine Bilirubin - Negative Bedside Urine Ketone - Negative Urine Specific [place] 1.010 Bedside Urine Occult Blood +++ Bedside Urine pH 7.0 Bedside Urine Protein + 30 Bedside Urine Urobilinogen - Negative Bedside Urine Nitrite + Positive Bedside Urine Leukocytes ++ [address] scan - head: Radiologist's Impression: PROCEDURE: CT HEAD/BRAIN WO CON INDICATIONS: headache left side numbness TECHNIQUE: Noncontrast 4.5 mm thick angled axial sections acquired from the foramen magnum to the vertex, with coronal and sagittal reformats. For radiation dose reduction, the following was used: automated exposure control, adjustment of mA and/or kV according to patient size. COMPARISON: [facility], CT, CT HEAD/BRAIN WO CON, 05/24/2019, 8:51. [facility], CT, CT HEAD/BRAIN WO CON, 10/22/2018, 19:03. FINDINGS: Image quality: Diagnostic. CSF spaces: Basal cisterns are patent. No definite extra-axial fluid collections. Ventricles are normal in size and shape. Brain: No midline shift. Evaluation for subtle hemorrhage is limited on this examination related to metallic artifact from the leads overlying the calvarium. However, no definitive extra-axial fluid collection or hemorrhage is identified. There is no parenchymal hemorrhage appreciated. Confluent areas of low attenuation are seen within the periventricular and deep white matter of the supratentorial brain. Alvarez-white matter interface is normal. Wire leads extending into the supratentorial brain is identified that enters within the region of the bilateral frontal lobes and terminates within the thalami/cerebral peduncles. The leads are unchanged and noted to be intact along the imaged portions of these leads. Skull and face: Calvarium and visualized facial bones are intact, without suspicious lesions. Sinuses: Visualized sinuses and mastoids are clear. IMPRESSION: 1. No definite acute intracranial hemorrhage. However, a very subtle subarachnoid or subdural hemorrhage could potentially be obscured by metallic artifact from the stimulator wire/leads. The need for follow-up imaging should be determined clinically. 2. White matter changes are similar to the previous exam and likely represent areas of chronic small vessel ischemic change. 3. Brain stimulator leads are intact and unchanged. Dictated by: Lance Mahajan M.D. on 06/05/2020 at 14:15 Chest x-ray: Radiologist's Impression: PROCEDURE: XR CHEST 1V INDICATIONS: chest pain TECHNIQUE: One view of the chest was acquired. COMPARISON: [facility], CR, XR CHEST 1V, 05/28/2019, 14:40. FINDINGS: Surgical changes and devices: Electronic apparatus is seen overlying the left chest with leads extending cranially along the left neck. This is unchanged. Lungs and pleura: Lungs are clear. No pleural effusions or pneumothorax. Mediastinum: Mediastinal contours appear normal. Heart size is normal. Bones and chest wall: No suspicious bony lesions. Overlying soft tissues appear unremarkable. IMPRESSION: Unremarkable chest radiograph. No acute cardiopulmonary process is evident. Dictated by: Lance Mahajan M.D. on 06/05/2020 at 14:14 ECG Data Attestation: I personally reviewed and interpreted this ECG as follows: Prior ECG tracings: available for review Interpretation: Normal sinus rhythm rate 70 p.r. interval 179 QRS [address] elevation depression T-wave inversion noted in aVL only MDM Narrative Medical decision making narrative: Patient has decreased sensation on left side of his body with headache consistent with signs of stroke. He is scheduled to have a TURP procedure in 2 days he initially resistant to aspirin because of this however finally agreed. He has no prior history of CVA or TIA. Due to his Parkinson's stimulator he is not able to have brain MRI. I discussed case with Dr. Lopez, agrees with admission. Only 1 blood pressure recorded 190/86. Discharge Plan Departure Patient Disposition: Admitted As Inpatient Clinical Impression: CVA (cerebral vascular accident) Qualifiers: CVA mechanism: unspecified Qualified Code(s): I63.9 - Cerebral infarction, unspecified Discharge Date/Time: 06/05/20 16:28 Referrals: Layton Kaiser MD [Primary Care Provider] - Admit Date/Time: 06/05/20 15:54 Admit Provider: Romel Lopez
--- NOTE | 2020-06-05 14:51 | DI.CT.S_ITS ---
PROCEDURE: CT HEAD/BRAIN WO CON INDICATIONS: headache left side numbness TECHNIQUE: Noncontrast 4.5 mm thick angled axial sections acquired from the foramen magnum to the vertex, with coronal and sagittal reformats. For radiation dose reduction, the following was used: automated exposure control, adjustment of mA and/or kV according to patient size. COMPARISON: [facility], CT, CT HEAD/BRAIN WO CON, 05/24/2019, 8:51. [facility], CT, CT HEAD/BRAIN WO CON, 10/22/2018, 19:03. FINDINGS: Image quality: Diagnostic. CSF spaces: Basal cisterns are patent. No definite extra-axial fluid collections. Ventricles are normal in size and shape. Brain: No midline shift. Evaluation for subtle hemorrhage is limited on this examination related to metallic artifact from the leads overlying the calvarium. However, no definitive extra-axial fluid collection or hemorrhage is identified. There is no parenchymal hemorrhage appreciated. Confluent areas of low attenuation are seen within the periventricular and deep white matter of the supratentorial brain. Alvarez-white matter interface is normal. Wire leads extending into the supratentorial brain is identified that enters within the region of the bilateral frontal lobes and terminates within the thalami/cerebral peduncles. The leads are unchanged and noted to be intact along the imaged portions of these leads. Skull and face: Calvarium and visualized facial bones are intact, without suspicious lesions. Sinuses: Visualized sinuses and mastoids are clear. IMPRESSION: 1. No definite acute intracranial hemorrhage. However, a very subtle subarachnoid or subdural hemorrhage could potentially be obscured by metallic artifact from the stimulator wire/leads. The need for follow-up imaging should be determined clinically. 2. White matter changes are similar to the previous exam and likely represent areas of chronic small vessel ischemic change. 3. Brain stimulator leads are intact and unchanged. Dictated by: Lance Mahajan M.D. on 06/05/2020 at 14:15 Approved by: Lance Mahajan M.D. on 06/05/2020 at 14:18
[2020-06-05 14:54] LABS: Add Manual Diff / Slide Review NO; Basophils Absolute Auto 0 /uL (0-100); Basophils Percent Auto 0.7 % (0-2); Eosinophils Absolute Auto 200 /uL (0-450); Hematocrit 42.9 % (41-53); Hemoglobin 14.7 g/dL (13.5-17.5); Lymphocytes Absolute Auto 500 /uL (1100-4500); Mean Corpuscular HGB Conc 34.3 % (30-36); Mean Corpuscular Hemoglobin 29.6 PG (26-34); Mean Corpuscular Volume 86.3 fL (80-100); Monocytes Absolute Auto 300 /uL (0-900); Monocytes Percent Auto 8.2 % (3-14); Neutrophils Absolute Auto 3200 /uL (1500-7000); Neutrophils Percent Auto 75.1 % (50-75); Platelet Count 154 X10^3/uL (150-400); Red Blood Cell Count 4.97 X10^6/uL (4.5-5.9); Red Cell Distribution Width 12.7 % (11.6-14.8); White Blood Cell Count 4.2 X10^3/uL (4.5-11.0)
[2020-06-05 15:00] LABS: INR 1.1 (0.9-1.3); Prothrombin Time 12.2 SECONDS (10.1-12.7)
[2020-06-05 15:03] LABS: PTT Partial Thromboplastin Tim 29 SECONDS (26.4-36.2)
[2020-06-05 15:04] LABS: Alanine Aminotransferase 5 IU/L (<50); Albumin 4.3 g/dL (3.5-5.0); Albumin Globulin Ratio 1.7 (1.0-2.8); Alkaline Phosphatase 67 U/L (38-126); Aspartate Aminotransferase 17 IU/L (17-59); BUN Creatinine Ratio 16.9 (6-22); Bilirubin Total 0.7 mg/dL (0.2-1.3); Blood Urea Nitrogen 14 mg/dL (9-20); Calcium 9.6 mg/dL (8.4-10.2); Carbon Dioxide 30 mmol/L (22-32); Chloride 102 mmol/L (98-107); Creatine Kinase 38 U/L (55-170); Estimated Glomerular Filt Rate > 60.0 mL/min (>60); Globulin 2.6 g/dL (1.7-4.1); Glucose 114 mg/dL (80-110); HEMOLYSIS < 15 (0-50); Lipase 57 U/L (23-300); Potassium 4.4 mmol/L (3.4-5.1); Sodium 137 mmol/L (137-145); Total Protein 6.9 g/dL (6.3-8.2)
[2020-06-05 15:16] LABS: Troponin I < 0.012 ng/mL (0.01-0.034)
[2020-06-05 15:41] LABS: Bacteria Urine Moderate (10-30); Culture Indicated Urine Specimen Cultured; RBC Urine 30-100/HPF (0-5/HPF); Squamous Epithelial Cell Urine 0-1 /HPF (0-5/HPF); WBC Urine 5-10/HPF (0-5/HPF)
[2020-06-05] MEDS: ASPIRIN 81 MG CHEW TAB 324 MG PO (16:09)
--- NOTE | 2020-06-05 17:15 | PC.NURSE ---
Addendum entered by Karen Lundy R.N. 06/05/20 19:50: Pt taken to CT for head/neck angio. Returned to room without incident. Original Note: Pt admitted to Acute Care for r/o stroke. Pt in ER with NIH scale 0. Pt with no neuro deficits noted on admission, but at 1715 pt reported a feeling of tingling/numbness in L fingertips. MD paged prior to symptoms for admission orders. Will update with current symptoms. Pt otherwise denies pain, nausea or other symptoms. Will continue to monitor, notify MD with current changes.
[2020-06-05 17:22] LABS: COVID19 -Nasal RAPID Negative (Negative)
--- NOTE | 2020-06-05 17:30 | DI.CT.S_ITS ---
PROCEDURE: CT ANGIO HEAD AND NECK INDICATIONS: possible stroke TECHNIQUE: Pre-contrast images were not performed. After the administration of intravenous contrast, 1 mm thick sections acquired from the aortic arch through the [place]. Post-contrast 4.5 mm thick sections then re-acquired from the foramen magnum to the vertex. 3-dimensional pjblypv-smoxpxgzr-wmqikfunxd (MIP) and/or volume rendering reformats were acquired of the central intracranial vasculature and neck separately. COMPARISON: [facility], CT, CT HEAD/BRAIN WO CON, 05/24/2019, 8:51. [facility], CT, CT ANGIO HEAD AND NECK, 05/24/2019, 16:05. FINDINGS: Image quality: Excellent. BRAIN: CSF spaces: Ventricles are normal in size and shape. Basal cisterns are patent. No extra-axial fluid collections. Brain: Deep brain stimulator leads are seen, as before. No midline shift. No intracranial bleeds or masses. Alvarez-white matter interface appears intact. Skull and face: Calvarium and facial bones appear intact, without suspicious lesions. Orbits appear normal. Sinuses: Sinuses and mastoids are clear. HEAD CT ANGIOGRAPHY: Anterior circulation: There is a possible 70% narrowing seen involving the petrous portion of the right intracranial internal carotid artery, as on series 8 image 89 and on series 16, image 130. However, this is felt more likely be related to artifact. Intracranial internal carotid arteries are otherwise normal in size and flow. The flow within the paired anterior cerebral arteries is normal and symmetric. The flow within the middle cerebral arteries is normal and symmetric. The anterior communicating artery is seen. No aneurysms are seen. Posterior circulation: Visualized portions of the vertebral arteries demonstrate normal caliber, and join to form a normal appearing basilar artery. Flow within the posterior cerebral arteries is normal and symmetric. No aneurysms are seen. NECK CT ANGIOGRAPHY: Carotid system: The great vessels demonstrate a conventional anatomy as they arise from the aortic arch. The origins of the common carotid arteries appear patent. The common carotid arteries demonstrate normal caliber and courses. The bifurcation regions are both widely patent. The internal carotid arteries demonstrate normal calibers and courses. Posterior circulation: The origins of the vertebral arteries both appear widely patent. The more superior extracranial portions of both vertebral arteries also demonstrate normal courses and calibers. They join to form a normal appearing basilar artery. Soft tissues: Visualized neck soft tissues demonstrate no suspicious abnormalities. Bones: No suspicious bony lesions. Visualized cervical spine appears normally aligned. Cervical spine degenerative changes are seen. IMPRESSION: No new abnormality is seen. There is a possible 70% narrowing involving the petrous portion of the right intracranial internal carotid artery, which is felt most likely to be related to artifact. Deep brain stimulator leads. Brain parenchymal volume loss and chronic small vessel ischemic change. Any quantitative measurements of stenosis were performed using NASCET criteria. Dictated by: Navin Bright M.D. on 06/05/2020 at 18:04 Approved by: Navin Bright M.D. on 06/05/2020 at 18:13
--- NOTE | 2020-06-05 17:33 | P.HP_ITS ---
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 I admitted the patient to the hospital about a year ago with concerns for TIA he comes in today with similar concerns. He is now presenting with left side numbness and headache. Says his headache started yesterday evening was quite bad that he could not get up. Uncomfortable did not sleep very well he tossed and turned all night. He then noticed this morning that he is having some left-sided numbness. It radiates up into his jaw and down into his arm and leg he says it is a tingling sensation. He has not had decreased weakness in his strengthening that side he has not had problems with his speech. He has not had problems with his gait at more than usual although he does have Parkinson's and has a brain stimulator in denies currently chest pain or palpitations. Patient became even more concerned because he has a TURP procedure coming up this Saturday. As he has had problems with urinary retention. He then presented to the emergency department for evaluation. Patient History Medical History Hairy cell leukemia (Acute) Parkinsons disease (Acute) Surgical History History of tonsillectomy S/P TURP (Acute) Family & Social History Social History: household members spouse Prior Living Arrangements House Safety & Behavioral: Feels Safe in Current Yes Environment Been Physically Hurt or No Threatened By a Person Suicidal Ideation Description None Suicide Plan Description No Plan Tobacco & Substance use: Smoking Status Former smoker alcohol intake current alcohol intake frequency holiday/special occasion Substance Use Type does not use Meds Home Medications and Allergies Home Medications Medication Instructions Recorded Confirmed Type carbidopa ER 50 mg-levodopa 200 mg 1 tab PO QID 04/08/18 06/05/20 History tablet,extended release rutin 450 mg PO QAM 06/19/18 06/05/20 History acetaminophen [Tylenol] 325 mg PO Q6H PRN 06/26/18 06/05/20 History PreserVision AREDS 1 cap PO DAILY 08/28/18 06/05/20 History Disabled Parking #1 each 03/05/19 06/05/20 Rx tamsulosin 0.4 mg capsule 0.4 mg PO DAILY 08/04/19 06/05/20 History amlodipine 5 mg tablet 5 mg PO DAILY #90 tab 05/24/20 06/05/20 Rx carbidopa-levodopa 25 - 100 tab PO PRN PRN 06/05/20 06/05/20 History omeprazole 20 mg PO DAILY 06/05/20 06/05/20 History Allergies Allergy/AdvReac Type Severity Reaction Status Date / Time cefuroxime Allergy Mild rash/ Verified 08/04/19 14:31 itching codeine [CODEINE] Allergy Mild NAUSEA Verified 08/04/19 14:31 clindamycin AdvReac N/V Verified 08/04/19 14:31 Exam Vital Signs (past 8 hours): - 06/05/20 14:20 06/05/20 16:05 06/05/20 16:26 Pulse Rate 72 62 67 Respiratory Rate 20 18 22 Blood Pressure 190/86 H Pulse Oximetry 97 96 96 Oxygen Delivery Method Room Air Objective Labs Result Diagrams: 06/05/20 14:40 06/05/20 14:40 Labs: Laboratory Results - last 24 hr 06/05/20 06/05/20 06/05/20 14:40 14:40 14:40 WBC 4.2 L RBC 4.97 Hgb 14.7 Hct 42.9 MCV 86.3 MCH 29.6 MCHC 34.3 RDW 12.7 Plt Count 154 Neut % (Auto) 75.1 H Lymph % (Auto) 12.0 L [place] % (Auto) 8.2 Eos % (Auto) 4.0 Baso % (Auto) 0.7 Neut # (Auto) 3200 Lymph # (Auto) 500 L [place] # (Auto) 300 Eos # (Auto) 200 Baso # (Auto) 0 PT 12.2 INR 1.1 APTT 29 D Sodium 137 Potassium 4.4 Chloride 102 Carbon Dioxide 30 BUN 14 Creatinine 0.83 Estimated GFR > 60.0 BUN/Creatinine Ratio 16.9 Glucose 114 H Calcium 9.6 Total Bilirubin 0.7 AST 17 ALT 5 Alkaline Phosphatase 67 Total Creatine Kinase 38 L CK-MB (CK-2) TNP CK-MB (CK-2) Rel Index TNP Troponin I < 0.012 Total Protein 6.9 Albumin 4.3 Globulin 2.6 Albumin/Globulin Ratio 1.7 Lipase 57 Urine RBC Urine WBC Ur Squamous Epith Cells Urine Bacteria Ur Culture Indicated? COVID-19 PCR 06/05/20 06/05/20 15:19 16:16 WBC RBC Hgb Hct MCV MCH MCHC RDW Plt Count Neut % (Auto) Lymph % (Auto) [place] % (Auto) Eos % (Auto) Baso % (Auto) Neut # (Auto) Lymph # (Auto) [place] # (Auto) Eos # (Auto) Baso # (Auto) PT INR APTT Sodium Potassium Chloride Carbon Dioxide BUN Creatinine Estimated GFR BUN/Creatinine Ratio Glucose Calcium Total Bilirubin AST ALT Alkaline Phosphatase Total Creatine Kinase CK-MB (CK-2) CK-MB (CK-2) Rel Index Troponin I Total Protein Albumin Globulin Albumin/Globulin Ratio Lipase Urine RBC 30-100/hpf H Urine WBC 5-10/hpf H Ur Squamous Epith Cells 0-1 /hpf Urine Bacteria Moderate (10-30) H Ur Culture Indicated? Specimen cultured COVID-19 PCR Negative Assessment & Plan Assessment & Plan narrative: TIA 75-year-old with complex medical history with who comes in today with left-sided arm and leg numbness and facial numbness no weakness no speech difficulty. Concerning for possible TIA. His NIH stroke scale in the emergency room was 1. Now it is a 0. Patient had initial CT scan done in the emergency department which showed no acute ischemic problems. There was concerned about potential bleed and recommended follow-up imaging based on the initial CT scan but there was uncertainty about this. Patient was previously admitted a year ago with numbness and tingling at that time had a CT angiogram carotid ultrasound and echocardiogram. Reviewed his laboratory testing which are fairly unremarkable. His initial CT scan as reported above. I do not think this is a bleed. Plan will be to control his blood pressure. Start on aspirin. Consider adding a statin as we go through his evaluation process Urinary tract infection with history of BPH and up in coming prostate surgery. Patient urinalysis shows lots of blood significant leukocytes. Due to his underlying symptoms would recommend treating with IV Levaquin 500 mg Q 24 hours. His white blood cell count is normal he is afebrile. I think it makes sense to try to treat him all is here before his surgical procedure. Parkinson's disease. Patient will be started back on his Parkinson's medication carbidopa levodopa. BPH. History of urinary retention. Continue with his Flomax 0.4 mg a day. Disposition and plan. Admit to the hospital for further evaluation and workup of his TI a versus CEA with CT angiogram cardiac monitoring blood pressure control anti-platelet therapy. Quality VTE Deep Vein Thrombosis/Pulmonary Embolism Present on Admission: No
[2020-06-05] MEDS: CARBIDOPA-LEVODOPA ER 50/200 TABLET 1 EACH PO (17:49)
[2020-06-05] MEDS: levoFLOXacin 500 MG/100 ML PIGGYBACK 100 MG IV (18:42)
[2020-06-05] MEDS: ACETAMINOPHEN 325 MG TABLET 650 MG PO (21:49)
[2020-06-05] MEDS: BENZOCAINE/MENTHOL 1 LOZ PKT 1 EACH PO (23:55)
[2020-06-06] MEDS: PANTOPRAZOLE 20 MG TABLET PO (05:38)
[2020-06-06 06:08] LABS: BUN Creatinine Ratio 14.6 (6-22); Blood Urea Nitrogen 13 mg/dL (9-20); Calcium 9.3 mg/dL (8.4-10.2); Carbon Dioxide 33 mmol/L (22-32); Chloride 100 mmol/L (98-107); Estimated Glomerular Filt Rate > 60.0 mL/min (>60); Glucose 99 mg/dL (80-110); HEMOLYSIS < 15 (0-50); Potassium 4.3 mmol/L (3.4-5.1); Sodium 137 mmol/L (137-145)
[2020-06-06 07:00] VITALS: BP 164/94; PULSE 65; RESP 16; TEMP 36.3; O2SAT 96
[2020-06-06 07:54] VITALS: O2SAT 97
[2020-06-06] MEDS: TAMSULOSIN 0.4 MG CAPSULE PO (08:31)
[2020-06-06] MEDS: SENNOSIDES 8.6 MG TABLET PO (08:31)
[2020-06-06] MEDS: ASPIRIN EC 325 MG TABLET PO (08:31)
[2020-06-06] MEDS: DOCUSATE 100 MG CAPSULE PO (08:31)
[2020-06-06] MEDS: AMLODIPINE 5 MG TABLET PO (08:31)
--- NOTE | 2020-06-06 08:34 | CM.DANOTE ---
DCP: Case received, EMR reviewed and met with patient. had recently been in room as well, but not during assessment. Was able to meet with patient to obtain information regarding his baseline activity level, and living situation. DCP assessment completed with information currently available. Patient is a 75 year old male who admitted yesterday afternoon to the care of the hospitalist team. PCP: Dr. Kaiser. Payer: confirmed: Medicare. Patient came to the hospital via private vehicle secondary to tingling and numbness to his left extremity. He had also been complaining of tingling to his jaw, and a headache. Patient currently diagnosed with UTI. Patient was supposed to have a TURP tomorrow, due to BPH. Patient has history of Parkinsons, and has a brain stimulator. He also has history of hairy cell leukemia, as well. Met with patient in his room. He is alert and oriented, and was sitting up in his chair. He resides with his , Elvie, here in [place]. 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 He uses a cane when needed. P: DCP to continue to follow. He may be going home today. Yohana Romero RN/Mortgage Processing Clerk
--- NOTE | 2020-06-06 08:37 | P.DS_ITS ---
History of Present Illness History of Present Illness Chief complaint: Lt side tingling from jaw down arm Discharge Providers Provider Date of admission: 06/05/20 15:54 Discharge Date: 06/06/20 Primary care physician: Layton Kaiser MD Consults: 06/05/20 17:26 Consult to Discharge Planning Routine Comment: Consult to Occupational Therapy Evaluate & Treat Comment: Physician Instructions: Evaluate and treat Consult to Physical Therapy Evaluate & Treat Comment: Physician Instructions: Evaluate and Treat 06/05/20 17:28 Consult to Speech Therapy Evaluate & Treat Comment: Physician Instructions: Evaluate and treat Discharge provider: Layton Kaiser MD Summary Hospital Course Discharge Diagnosis: 1. Tingling of fingers fair 2. Hypertension. 3. Stable neurologic course 4. Pre-existing parkinsonism. 5. Pre-existing BPH 6. Presumed acute urinary tract infection Hospital Course: Patient was better for evaluation daily was left that. This morning he relates that he set tingling of the fingers 2 through 4 not clearly little finger the thumb. Rated her of said this had resolved. Headache is resolved. His exam this morning is his baseline. He underwent the CT of the head questioning small hemorrhage. CTA done last tight the denied any hemorrhage. It was unchanged and normal for the patient. Carotid Doppler is pending the at the time of this dictation. Patient is found to have bacteria in his urine additional culture showed Staph. He was be discharged on Bactrim. TURP will be postponed probably for a week Status at Discharge Cognitive/behavioral status at discharge: oriented and at baseline, oriented Functional status at discharge: uses cane/walker Overall status at discharge: patient is back to baseline Exam Vital Signs (past 8 hours): - 06/06/20 07:54 Pulse Oximetry 97 Oxygen Delivery Method Room Air Oxygen Flow Rate 0 Objective Labs Result Diagrams: 06/05/20 14:40 06/06/20 05:42 Labs: Laboratory Results - last 24 hr 06/05/20 06/05/20 06/05/20 14:40 14:40 14:40 WBC 4.2 L RBC 4.97 Hgb 14.7 Hct 42.9 MCV 86.3 MCH 29.6 MCHC 34.3 RDW 12.7 Plt Count 154 Neut % (Auto) 75.1 H Lymph % (Auto) 12.0 L [place] % (Auto) 8.2 Eos % (Auto) 4.0 Baso % (Auto) 0.7 Neut # (Auto) 3200 Lymph # (Auto) 500 L [place] # (Auto) 300 Eos # (Auto) 200 Baso # (Auto) 0 PT 12.2 INR 1.1 APTT 29 D Sodium 137 Potassium 4.4 Chloride 102 Carbon Dioxide 30 BUN 14 Creatinine 0.83 Estimated GFR > 60.0 BUN/Creatinine Ratio 16.9 Glucose 114 H Calcium 9.6 Total Bilirubin 0.7 AST 17 ALT 5 Alkaline Phosphatase 67 Total Creatine Kinase 38 L CK-MB (CK-2) TNP CK-MB (CK-2) Rel Index TNP Troponin I < 0.012 Total Protein 6.9 Albumin 4.3 Globulin 2.6 Albumin/Globulin Ratio 1.7 Lipase 57 Urine RBC Urine WBC Ur Squamous Epith Cells Urine Bacteria Ur Culture Indicated? COVID-19 PCR 06/05/20 06/05/20 06/06/20 15:19 16:16 05:42 WBC RBC Hgb Hct MCV MCH MCHC RDW Plt Count Neut % (Auto) Lymph % (Auto) [place] % (Auto) Eos % (Auto) Baso % (Auto) Neut # (Auto) Lymph # (Auto) [place] # (Auto) Eos # (Auto) Baso # (Auto) PT INR APTT Sodium 137 Potassium 4.3 Chloride 100 Carbon Dioxide 33 H BUN 13 Creatinine 0.89 Estimated GFR > 60.0 BUN/Creatinine Ratio 14.6 Glucose 99 Calcium 9.3 Total Bilirubin AST ALT Alkaline Phosphatase Total Creatine Kinase CK-MB (CK-2) CK-MB (CK-2) Rel Index Troponin I Total Protein Albumin Globulin Albumin/Globulin Ratio Lipase Urine RBC 30-100/hpf H Urine WBC 5-10/hpf H Ur Squamous Epith Cells 0-1 /hpf Urine Bacteria Moderate (10-30) H Ur Culture Indicated? Specimen cultured COVID-19 PCR Negative Discharge Plan Discharge Plan Patient Disposition: Home Discharge comment: appt w urol. ppt w conl 2 weeks Discharge orders & Medications Prescriptions: New sulfamethoxazole-trimethoprim [Bactrim DS] 800-160 mg tablet 1 tab PO BID Qty: 20 RF: 0 Continued carbidopa-levodopa 50-200 mg tablet extended release 1 tab PO QID RF: 0 (DME) Disabled Parking 0 .ROUTE .MEDSUPPLY Qty: 1 RF: 0 amlodipine 5 mg tablet 5 mg PO DAILY Qty: 90 RF: 1 tamsulosin [Flomax] 0.4 mg capsule 0.4 mg PO DAILY RF: 0 rutin 500 mg Tablet 450 mg PO QAM RF: 0 acetaminophen [Tylenol] 325 mg Tablet 325 mg PO Q6H PRN (Reason: Pain (Scale Score 1-3)) RF: 0 PreserVision AREDS [id number] Capsule 1 cap PO DAILY RF: 0 omeprazole 20 mg 20 mg PO DAILY RF: 0 carbidopa-levodopa 25-100 mg Tablet,Disintegrating 25 - 100 tab PO PRN PRN (Reason: parkinson's symptoms) RF: 0 Senokot-S RF: 0 Follow up/Referrals: Layton Kaiser MD [Primary Care Provider] - Discharge Data Primary Care Provider: Layton Kaiser Quality VTE Deep Vein Thrombosis/Pulmonary Embolism Present on Admission: No
[2020-06-06] MEDS: CARBIDOPA-LEVODOPA 25/100 TABLET 1 EACH PO (09:45)
--- NOTE | 2020-06-06 10:00 | OT.IP.EVAL ---
Past Medical History (Last Reviewed 06/05/20 @ 18:23 by Romel oLpez MD) Hairy cell leukemia (Acute) Parkinsons disease (Acute) Surgical History (Last Reviewed 06/05/20 @ 18:23 by Romel Lopez MD) History of tonsillectomy S/P TURP (Acute) Occupational Therapy Inpatient Evaluation/Re-Eval M1 PT/OT-IP Prior Functional Status Start: 06/06/20 10:21 Freq: NEEDED Status: Active Protocol: Document 06/06/20 10:22 CGR (Rec: 06/06/20 10:43 CGR [id number]) Medical Review Prior Functional Status Medical History Reviewed Yes Communication Pt is an effective verbal communicator. Mobility and Gait Pt states that he was IND in the home but sometimes uses a QC for longer distances and has a home made 4 wheeled walker, made out of a 2ww for being outside with his dog. Activities of Daily Living and IADL's Pt states he was IND in all ADLs. Social History Household Members spouse Living Arrangements House Number of Floors (Floors) Two Floors Number of Stairs To Enter/Railing? No steps from the garage, 4 steps to enter from the front door with B wide railings, 13 steps to the second floor with railing on left assending. Home Environment Standard Height Toilet,Tub/ Shower Home Equipment Quad Cane,Bedside Commode, Shower Seat without Backrest Employment Status Retired Additional Social History Comment Pt has a flat bed and a 2ww that he has converted to a 4ww for being outside with the dog. M2 OT-IP Current Condition Start: 06/06/20 10:21 Freq: Status: Active Protocol: Document 06/06/20 10:22 CGR (Rec: 06/06/20 10:43 CGR [id number]) Occupational Therapy Current Condition Current Condition Evaluation Date 06/06/20 Treatment Diagnosis L sided numbness, weakness and UTI Diagnosis Onset Date 06/05/20 M3 OT- IP Subjective and Pain Start: 06/06/20 10:21 Freq: Status: Active Protocol: Document 06/06/20 10:22 CGR (Rec: 06/06/20 10:43 CGR [id number]) OT- Subjective Occupational Therapy Visit Type Type Initial Evaluation Visit Start Time 09:36 Visit Stop Time 10:00 Total Visit Minutes 24 Notes Discussed with nursing and P.T . after OT session with the plan for P.T. to see around noon so pt can rest. Occupational Therapy Visit Comments Patient Comments I am woozy because I didn't sleep well. OT Pain Assessment Pain When Pain Assessed At Rest Pain Present Pain Present Denied Pain M4 OT- IP ADL's Start: 06/06/20 10:21 Freq: Status: Active Protocol: Document 06/06/20 10:22 CGR (Rec: 06/06/20 10:43 CGR [id number]) OT NNH-Qtnz-Tlzplug Comments OT Self-Feeding Comments Not meal time OT ADL-Grooming Comments OT Grooming Comments Pt ambualted up to sink but then reported feeling woozy and returned to sitting. OT ADL-Oral Care Comments Oral Care Comments Pt ambualted up to sink but then reported feeling woozy and returned to sitting. OT ADL-Dressing Comments OT Dressing Comments Not performed d/t reports of feeling woozy and requesting to get back to bed. OT ADL-Toileting General Evaluation Toileting Ability Standby Assistance Devices Toileting Assistive Devices Commode Comments OT Toileting Comments simulated seated on toilet. OT ADL-Bathing Comments OT Bathing Comments Not performed in this session. M6 OT- IP Functional Cognition Start: 06/06/20 10:21 Freq: Status: Active Protocol: Document 06/06/20 10:22 CGR (Rec: 06/06/20 10:43 CGR [id number]) Cognitive Factors Limiting Selfcare Function Cognitive Ability Level of Alertness Alert Patient Orientation Name,Age,Birthday,Month,Date, Year,Day of Week,Place, Situation Attention Span Ability Capable of Focused Attention, Capable of Sustained Attention Ability to Follow Commands Able to Follow One Step Commands Memory Description No Deficits Noted Safety Awareness Underestimates Need for Assistance OT- Vision and Hearing OT- Hearing Assessment OT- Hearing Assessment WFL OT- Vision Assessment Visual Acuity Glasses All The Time Visual Attentiveness WFL Occular Pursuits WFL Visual Convergence Impaired Vision Assessment Comments Visual convergence is delayed. Pt wears bifocals. M7 OT- IP Mobility and Balance Start: 06/06/20 10:21 Freq: Status: Active Protocol: Document 06/06/20 10:22 CGR (Rec: 06/06/20 10:43 CGR [id number]) OT- Bed Mobility Assessment Rolling Level of Assistance Standby Assistance Supine to Sit Supine to Sit Assist Standby Assistance Sit to Supine Sit to Supine Assist Standby Assistance Scooting Scooting to Edge of Bed Standby Assistance OT-Transfer Assessment Sit to and From Stand Sit to and from Stand Contact Guard Assistance Transfers Transfer Ability Contact Guard Assistance, Minimal Assistance Technique Transfer Destination Bed,Chair,Toilet Transfer Technique Stand Step Pivot Devices Transfer Assistive Devices Gait Belt OT- Gait Assessment Gait Gait Assistance Required: Contact Guard Assist,Minimum Assistance Assistive Devices Assistive Device Gait Belt Comments Gait Ability Comments Pt stood from the chair and initially did well ambulating to the bathroom with CGA. Upon standing from the toilet, pt was unbalanced and ambulated to the bed for bed mobility then to the sink all with min a and poor balance. Pt got to the sink and reported feeling woozy and requesting to return to chair for sitting. Pt returned to chair and states feeling better in chair . BP 149/84 upon sitting in chair. OT- Balance Assessment Sitting Balance and Reactions Static Sitting Balance Ability Good Dynamic Sitting Balance Ability Fair Standing Balance and Reactions Static Standing Balance Ability Poor Dynamic Standing Balance Ability Poor M8 OT- IP Objective Assessments Start: 06/06/20 10:21 Freq: Status: Active Protocol: Document 06/06/20 10:22 CGR (Rec: 06/06/20 10:43 R [id number]) OT Gross Range of Motion Upper Extremity Range of Motion Assessment Within Functional Limits OT Strength Upper Extremity Strength Assessment Within Functional Limits Comments Strength Comments Grossly 5/5 OT- Coordination Assessment Upper Extremity Finger to Nose Test Within Functional Limits Finger Tapping Test Within Functional Limits OT-Muscle Tone Assessment Muscle Tone WNL Yes OT Sensation Assessment Comments Summary Comments Pt states tingling to the 2nd, 3rd, and 4th finger tips on the L hand. States better today than yesterday. Edema Edema Absent M9 OT- IP Assessment and Plan Start: 06/06/20 10:21 Freq: Status: Active Protocol: Document 06/06/20 10:22 CGR (Rec: 06/06/20 10:43 R [id number]) OT Summary Assessment and Plan Potential Rehabilitation Potential Good Analytic Complexity at Evaluation Low Summary OT Impairments Balance,Sensation,Functional Mobility,Grooming,Dressing, Toileting,Bathing,Toilet Transfers,Shower Transfers, Activity Tolerance Progress Towards Goals Progressing Toward Goals Assessment Summary Pt presents with a low complexity evaluation s/p admit with L sided numbness and weakness. Pt presents with good strength but poor balance with mobility. Pt with reports of wooziness after being up mobilizing. Pt will benefit from continued assessment as assessment cut short d/t pt not feeling safe to be mobilizing at this time. Pt is likely to progress to discharge home with family. Goals Grooming Goal Independent Dressing Goal Independent Toileting Goal Independent Bathing Goal Independent Toilet Transfer Goal Independent Shower Transfer Goal Independent Days to Meet Goals 2 Frequency of Treatment Frequency Of Treatment Once a Day Treatment Plan OT Treatment Plan ADL Training,Functional Mobility,Patient/Family Education,Discharge Planning Other Treatment Recommendations and Next dressing, bathing, standing Treatment Focus tolerance. Discharge Recommendations OT Discharge Recommendations Home with Assistance Home Equipment Needs TBD Transportation Needs at Discharge Private Vehicle
--- NOTE | 2020-06-06 10:50 | SLP.IPNOTE ---
Review of pt's chart indicated that Dr Kaiser discharged the pt this morning, stating that the pt was back to his baseline. Phone call to Dr Kaiser to clarify. Dr. Kaiser stated no ST at this time. Order canceled.
[2020-06-06] MEDS: ACETAMINOPHEN 325 MG TABLET 650 MG PO (11:21)
[2020-06-06] MEDS: CARBIDOPA-LEVODOPA ER 50/200 TABLET 1 EACH PO (12:03)
--- NOTE | 2020-06-06 12:25 | PT.IIE ---
Surgical History (Last Reviewed 06/05/20 @ 18:23 by Romel Lopez MD) History of tonsillectomy S/P TURP (Acute) Medical History (Last Reviewed 06/05/20 @ 18:23 by Romel Lopez MD) Hairy cell leukemia (Acute) Parkinsons disease (Acute) Physical Therapy Inpatient Evaluation/Re-Eval M1 PT/OT-IP Prior Functional Status Start: 06/06/20 10:21 Freq: NEEDED Status: Active Protocol: Document 06/06/20 12:12 AW (Rec: 06/06/20 12:25 AW [id number]) Medical Review Prior Functional Status Medical History Reviewed Yes Communication Pt is an effective verbal communicator. Mobility and Gait Pt states that he was IND in the home but sometimes uses a QC for longer distances and has a home made 4 wheeled walker, made out of a 2ww for being outside with his dog. Activities of Daily Living and IADL's Pt states he was IND in all ADLs. Social History Household Members spouse Living Arrangements House Number of Floors (Floors) Two Floors Number of Stairs To Enter/Railing? No steps from the garage, 4 steps to enter from the front door with B wide railings, 13 steps to the second floor with railing on left ascending. Home Environment Standard Height Toilet,Tub/ Shower Home Equipment Quad Cane,Bedside Commode, Shower Seat without Backrest, Grab Bars In Shower Employment Status Retired Additional Social History Comment Pt has a flat bed and a 2ww that he has converted to a 4ww for being outside with the dog. M2 PT-IP Current Condition Start: 06/06/20 09:25 Freq: NEEDED Status: Active Protocol: Document 06/06/20 12:12 AW (Rec: 06/06/20 12:25 AW [id number]) Physical Therapy Current Condition Current Condition Evaluation Date 06/06/20 Treatment Diagnosis left-sided numbness, headache, possible TIA, difficulty in walking Onset Date 06/05/20 Precautions Other Precautions Pt has deep brain stimulator for Parkinson's symptoms M3 PT-IP Subjective Start: 06/06/20 09:25 Freq: NEEDED Status: Active Protocol: Document 06/06/20 12:12 AW (Rec: 06/06/20 12:25 AW [id number]) Subjective Physical Therapy Visit Type Type Initial Evaluation Visit Start Time 11:18 Visit Stop Time 11:38 Total Visit Minutes 20 Notes Pt's present for evaluation Physical Therapy Visit Comments Patient Comments Pt is frustrated that he has not been discharged yet, but willing to participate with PT Therapy Pain Assessment Pain When Pain Assessed At Rest Pain Present Pain Present Pain Reported Location headache Intensity 2 Scale Used Numeric (0 - 10) Description Aching Pain Management Techniques Timing of Activity with Medications M4 PT-IP Mobility and Gait Start: 06/06/20 09:25 Freq: NEEDED Status: Active Protocol: Document 06/06/20 12:12 AW (Rec: 06/06/20 12:25 AW [id number]) PT-Bed Mobility Assessment Supine to Sit Supine to Sit Independent Sit to Supine Sit to Supine Independent Scooting Scooting to Edge of Bed Independent PT-Transfer Assessment Sit to and From Stand Sit to and from Stand Independent Equipment Transfer Assistive Device Gait Belt,Tripod Cane/Hurry Cane Transfers Transfer Destination Bed,Chair Transfer Technique pt ambulated while carrying cane Transfer Ability Level of Assist Independent Comments Mobility Comments Pt completed all bed mobility and transfers independently. Gait Assessment Gait Gait Assistance Required: Standby Assistance Distance (Feet) 200 Assistive Devices Assistive Device Gait Belt,Tripod Cane/Hurry Cane Gait Deviations General Gait Pattern Decreased Stride Length, Decreased Feet Clearance Factors Limiting Gait Function Factors Limiting Gait Function Decreased Sensation,Poor Balance,Poor Safety Awareness Comments Gait Comments Pt ambulated in the halls while carrying his tripod cane which he states he carries often just in case. Pt completed modified (4-item) DGI with a score of 10/12 with points deducted for path deviation during horizontal head turns and for minimal change in gait speed when cued . Stair Climbing Assessment Evaluation Level of Assist On Stairs Standby Assistance Devices Stair Climbing Assistive Devices Left Railing Technique/Endurance Stair Climbing Direction Ascend and Descend Stair Climbing Technique Step Over Step Number of Steps Climbed 3 Query Text: Stair Climbing Set # Repetitions (reps) 2 PT-Balance Assessment Sitting Balance and Reactions Static Sitting Balance Ability Normal Dynamic Sitting Balance Ability Normal Standing Balance and Reactions Static Standing Balance Ability Normal Dynamic Standing Balance Ability Good Comments Other Balance Tests/Deviations/Treatment Pt able to turn quickly each : direction without LOB. M5 PT-IP Objective Assessments Start: 06/06/20 09:25 Freq: NEEDED Status: Active Protocol: Document 06/06/20 12:12 AW (Rec: 06/06/20 12:25 [id number]) Orientation Orientation/Cognition Level of Alertness Alert Orientation Name,Day of Week,Place, Situation Language Function Ability No Deficits Noted Safety Awareness Understands Safety Issues Memory Description No Deficits Noted Gross Range of Motion Upper Extremity ROM Assessment Within Functional Limits Lower Extremity ROM Assessment Within Functional Limits Strength Upper Extremity Strength Assessment Within Functional Limits Lower Extremity Strength Assessment Within Functional Limits Comments Strength Comments BLE grossly 5/5 except hips 4+ /5 Coordination Assessment Gross Coordination Gross Coordination WNL Assessment Finger to Nose Test Normal Performance Pronation/Supination Test Normal Performance Sensation Assessment Sensation Gross Sensation Left UE Impaired Light Touch Impaired Sensation Description Tingling Comments Sensation Comments Pt reports improving left arm tingling. He states when he arrived, he was numb and tingly throughout his left arm . Currently, he is having tingling only in left digits 2 -4 and he characterizes it as mild. Muscle Tone Muscle Tone WNL Yes M6 PT-IP Treatment Start: 06/06/20 09:25 Freq: NEEDED Status: Active Protocol: Document 06/06/20 12:12 AW (Rec: 06/06/20 12:25 [id number]) Physical Therapy Treatment Education Education Provided Precautions,Safety Other Treatments Other Treatment Performed Provided education on role of PT and options for outpatient therapy. Educated pt on signs of stroke and quick response if symptoms noted. M7 PT-IP Assessment and Plan Start: 06/06/20 09:25 Freq: NEEDED Status: Active Protocol: Document 06/06/20 12:12 AW (Rec: 06/06/20 12:25 [id number]) PT Summary Assessment and Plan Summary Impairments Pain,Balance,Gait Assessment Summary Eduar is a 75 yo man seen for PT evaluation after being admitted with left arm and jaw numbness and headache. At baseline, pt is modified independent with occasional use of a tripod cane when he is fatigued or when he is walking longer distances. On evaluation, pt was indpendent with bed mobility and transfers. He scored 10/12 on modified DGI, indicating low risk of falls. Pt would benefit from outpatient PT to address typical parkinsonian bradykinesia and hypokinesia. Pt is aware of amplitude-based therapy and already has plans to seek referral. Pt is safe for discharge. Frequency of Treatment Frequency Of Treatment Discharge Recommendations To Nursing Amount of Assist Needed Standby Assistance Discharge Recommendations Transportation Needs at Discharge Private Vehicle
--- NOTE | 2020-06-06 13:06 | PC.NURSE ---
DISCHARGE: PATIENT CLEARED FOR DC HOME BY PHYSICAL THERAPY. MEDS RETURNED TO PATIENT. SPOUSE PRESENT FOR DC HOME TEACHING. DR. CORTEZ'S NURSE STATES DR CORTEZ HAS REVIEWED CAROTID DOPPLER STUDY AND OK FOR PATIENT TO DC HOME. DR. CORTEZ STATES IS OKAY FOR PATIENT TO CONTINUE WITH TURP PROCEDURE TOMORROW SCHEDULED. PATIENT/SPOUSE STATE THAT THE APPOINTMENT IS STILL SCHEDULED. THEY CONFIRM UNDERSTANDING OF DC HOME INSTRUCTIONS. WILL FURNACE HAND THE SCRIPT SAFEWAY FOR ABX. PATIENT LEFT BY WC WITH ALL BELONGINGS AND PAPERWORK IN NO S/SX'S OF DISTRESS W/ ALL BELONGINGS W/ CUSTOMER DATA TECHNICIAN ESCORT TO VEHICLE.
== END 2020-06-06 13:00 | disposition home or self-care (01) ==
LOC: ED 15:49 → AC 06-06 06:57
PROVIDERS: Admitting Provider Family Medicine; Emergency Provider Emergency Medicine; PCP Family Medicine; Referring Provider Emergency Medicine; Visit Provider Family Medicine
DX: R51 Headache (principal); G20 Parkinson's disease; R20.0 Anesthesia of skin; I10 Essential (primary) hypertension; N40.0 Benign prostatic hyperplasia without lower urinary tract symptoms; N39.0 Urinary tract infection, site not specified; Z11.59 Encounter for screening for other viral diseases; B95.8 Unspecified staphylococcus as the cause of diseases classified elsewhere
CPT/HCPCS: 36415; 36592; 70450; 70496; 70498; 71045; 80048; 80053; 81003; 81015; 82550; 83690; 84484; 85025; 85610; 85730; 87077; 87086; 87147; 87186; 87635; 93005; 93010; 93880; 96365; 97161; 97165; 97535; 99285; G0378; J1956; Q9967

== ENCOUNTER → 2020-07-14 16:16 | Outpatient (CLI) | payer MEDICARE, OTHER, SELFPAY ==
[2020-06-05 16:18] VITALS: BMI 25.8
--- NOTE | 2020-07-14 16:22 | DI.RAD.S_ITS ---
PROCEDURE: XR FOOT LT MIN 3V INDICATIONS: left foot pain no trauma TECHNIQUE: 3 views of the foot were acquired. COMPARISON: [facility], , XR FOOT LT MIN 3V, 03/04/2019, 12:11. FINDINGS: Bones: No fractures or dislocations. No suspicious bony lesions. Chronic calcification projects at base of the 5th metatarsal. Moderate 1st MTP joint degeneration. Diffuse interphalangeal osteoarthritis. Soft tissues: No tibiotalar joint effusion. Achilles tendon appears normal. IMPRESSION: Degenerative changes as above. If the patient's pain or other symptoms persist, consider further evaluation with MRI Dictated by: Dany Arevalo M.D. on 07/14/2020 at 16:57 Approved by: Dany Arevalo M.D. on 07/14/2020 at 16:59
== END ==
PROVIDERS: PCP Family Medicine; Referring Provider Family Medicine; Visit Provider Family Medicine
DX: M77.42 Metatarsalgia, left foot (principal); M19.072 Primary osteoarthritis, left ankle and foot
CPT/HCPCS: 73630

== ENCOUNTER 2020-08-05 23:42 | Emergency (ER) | payer MEDICARE, OTHER, SELFPAY ==
[2020-06-05 16:18] VITALS: BMI 25.8
[2020-08-05 23:53] VITALS: BP 233/111; PULSE 79; RESP 14; TEMP 36.6; O2SAT 98; BMI 26.1
[2020-08-06] VITALS: BP 209/95; PULSE 74; RESP 15; O2SAT 98
--- NOTE | 2020-08-06 00:24 | ED.GENADULT ---
HPI - General Adult General Chief complaint: Hypertension Stated complaint: states very low blood pressure Time Seen by Provider: 08/06/20 00:24 Source: patient Mode of arrival: Ambulatory Limitations: other History of Present Illness HPI narrative: 75-year-old gentleman with a history of Parkinson's disease, hypertension and anxiety presents with concerns about hypotension today. His losartan 50 mg was recently increased by his primary care physician, Dr. Kaiser, to 100 mg daily. His blood pressure cuff has been having some issues any has not been able to adequately check his blood pressure. Today it continued to pump and deflate and given the reading of 0. Came to the ER to have readings correlated and was concerned that he might not have any blood pressure. He has no other complaints, no chest pain, dyspnea, orthopnea, lower extremity edema, abdominal pain, nausea, vomiting. No neurologic complaints consistent with stroke or stroke-like syndrome. Related Data Home Medications Medication Instructions Recorded Confirmed carbidopa ER 50 mg-levodopa 200 mg 1 tab PO QID 04/08/18 07/27/20 tablet,extended release rutin 450 mg PO QAM 06/19/18 07/27/20 acetaminophen [Tylenol] 325 mg PO Q6H PRN 06/26/18 07/27/20 Senokot-S 06/05/20 07/27/20 omeprazole 20 mg PO DAILY 06/05/20 07/27/20 carbidopa 25 mg-levodopa 100 mg 25 - 100 tab PO QID PRN tab 07/14/20 07/27/20 disintegrating tablet Previous Rx's Medication Instructions Recorded Disabled Parking #1 each 03/05/19 losartan 50 mg tablet 50 mg PO BID #90 tab 07/14/20 triamcinolone acetonide 0.1 % 1 applictn TOP BID #30 gram 07/14/20 topical cream Allergies Allergy/AdvReac Type Severity Reaction Status Date / Time cefuroxime Allergy Mild rash/ Verified 07/27/20 13:33 itching codeine [CODEINE] Allergy Mild NAUSEA Verified 07/27/20 13:33 clindamycin AdvReac N/V Verified 07/27/20 13:33 Review of Systems Review of Systems Narrative: Remainder of review of systems including constitutional, ENT, cardiovascular, respiratory, GI, , musculoskeletal, skin, neurologic and psychiatric systems reviewed and are unremarkable except as noted in HPI. Patient History Medical History CVA (cerebral vascular accident) (Acute) Hairy cell leukemia (Acute) Hypertension (Acute) Paresthesias in left hand (Acute) Parkinsons disease (Acute) Surgical History History of tonsillectomy S/P deep brain stimulator placement (Acute) S/P TURP (Acute) Social History household members: spouse Smoking Status: Former smoker alcohol intake: current substance use type: does not use Smoking Status: Former smoker alcohol intake frequency: holidays/special occasions only Substance Use Type: does not use Exam Narrative Exam Narrative: General: Healthy appearing, in no acute distress. Able to give a complete and coherent history. Well-nourished well-developed HEENT: Moist mucous membranes, normal sclera with reactive pupils, Neck: No JVD, supple Respiratory: Lungs are clear to auscultation, no wheezing no rales no rhonchi. Full and symmetrical air movement, deep brain stimulator battery and placed in the left upper chest wall Cardiac: Regular rate and rhythm no murmurs no bruits Abdomen: Soft nontender good bowel tones, no flank pain Skin: Warm and dry, no rashes Neurologic: Grossly neurologically intact with no obvious asymmetries or abnormalities Extremities: No trauma, well perfused Psych: Cooperative, appropriate insight and affect Initial Vital Signs Initial Vital Signs: Vital Signs Temperature 97.9 F 08/05/20 23:53 Pulse Rate 79 08/05/20 23:53 Respiratory Rate 14 08/05/20 23:53 Blood Pressure 233/111 H 08/05/20 23:53 Pulse Oximetry 98 08/05/20 23:53 Course Vital Signs Vital signs: Vital Signs - 8 hr 08/05/20 23:53 08/06/20 00:00 08/06/20 00:57 Temperature 97.9 F Pulse Rate 79 74 69 Respiratory Rate 14 15 15 Blood Pressure 233/111 H 209/95 H 200/86 H Pulse Oximetry 98 98 97 08/06/20 00:58 Temperature Pulse Rate Respiratory Rate Blood Pressure 200/86 H Pulse Oximetry Medical Decision Making MDM Narrative Medical decision making narrative: Essential hypertension with asymptomatic elevated blood pressures and increased anxiety this evening. In the emergency room he was given his 2nd 50 dose mg of losartan to total 100 mg today. Encouraged him to buy a new blood pressure cuff is a current when he has does not appear to be working. Reassured him that he will be safe for discharge home and encouraged him to follow-up with his primary care physician in the near future Discharge Plan Departure Patient Disposition: Home Clinical Impression: Hypertension Qualifiers: Hypertension type: essential hypertension Qualified Code(s): I10 - Essential (primary) hypertension Discharge Date/Time: 08/06/20 00:58 Instructions: DI for High Blood Pressure Activity Restrictions/Additional Instructions: Thank you for coming in today You clearly are still having some blood pressure issues however I am very reassured that your not actually having symptoms. You need to continue taking 100 mg of losartan(2 of your current pills) as recommended by Dr. Kaiser. You also need to replace your blood pressure monitor as it is not seeming to work anymore. Please by new blood pressure cuff and document blood pressures once a day and schedule an appointment with Dr. Kaiser to review your blood pressure within the next 1-2 weeks. If you develop chest pain, shortness of breath, numbness, tingling or other stroke-like symptoms that would be a reason to return to the emergency department. If your blood pressure is simply elevated and you have none of those symptoms, you do not need to be seen in the emergency department. I wish you the best Prescriptions: No Action carbidopa-levodopa 50-200 mg tablet extended release 1 tab PO QID RF: 0 (DME) Disabled Parking 0 .ROUTE .MEDSUPPLY Qty: 1 RF: 0 losartan 50 mg tablet 50 mg PO BID Qty: 90 RF: 3 carbidopa-levodopa 25-100 mg tablet,disintegrating 25 - 100 tab PO QID PRN (Reason: parkinson's symptoms) RF: 0 triamcinolone acetonide 0.1 % cream 1 applictn TOP BID Qty: 30 RF: 5 rutin 500 mg Tablet 450 mg PO QAM RF: 0 acetaminophen [Tylenol] 325 mg Tablet 325 mg PO Q6H PRN (Reason: Pain (Scale Score 1-3)) RF: 0 omeprazole 20 mg 20 mg PO DAILY RF: 0 Senokot-S RF: 0 Referrals: Layton Kaiser MD [Primary Care Provider] -
--- NOTE | 2020-08-06 00:45 | PC.NURSE ---
patient thought he took 2 of his Lorsartan and that he had no B/P. Has no cardiac symptoms, or shortness of breath or headache. Said their B/P machine is broken. SAMANTHA spoke with patient and did an exam. Plan is for patient to get a functioning B/P machine and to keep a daily record of his B/P for Dr. Kaiser. Patient most likely did not take his Losartan Patient has Parknson's and is forgetful . Patient took his parkinson's med and one Lorsarton of his own as instructed by SAMANTHA
[2020-08-06 00:57] VITALS: BP 200/86; PULSE 69; RESP 15; O2SAT 97
[2020-08-06 00:58] VITALS: BP 200/86
== END 2020-08-06 00:58 | disposition home or self-care (01) ==
PROVIDERS: Emergency Provider Emergency Medicine; PCP Family Medicine
DX: I10 Essential (primary) hypertension (principal)
CPT/HCPCS: 99281

== ENCOUNTER → 2020-08-20 13:42 | Outpatient (CLI) | payer MEDICARE, OTHER, SELFPAY ==
[2020-06-05 16:18] VITALS: BMI 25.8
[2020-08-22 09:14] LABS: COVID19 Sendout Not Detected (Not Detect)
== END ==
PROVIDERS: PCP Family Medicine; Visit Provider Nurse Practitioner
DX: Z11.59 Encounter for screening for other viral diseases (principal)
CPT/HCPCS: 87635

== ENCOUNTER 2020-08-23 10:17 | Day surgery (SDC) | payer MEDICARE, OTHER, SELFPAY ==
[2020-06-05 16:18] VITALS: BMI 25.8
--- NOTE | 2020-08-23 | PATH_ITS ---
[facility] Accession Number: [id number] . 01 Material submitted: . colon - COLON POLYP AT 40CM . 02 Diagnosis: Colon Polyp at 40 cm: Tubular adenoma. MRV 08/26/2020 1007 Local . 02 Electronically signed: . Aurora Manley MD, Pathologist NPI- [id number] . 01 Gross description: . COLON POLYP AT 40CM: Received in formalin is 1 fragment(s) of lubin, soft tissue measuring 0.5 x 0.4 x 0.4 cm which is inked, bisected and submitted entirely in 1 cassette(s) /QBJ 08/24/2020 0913 Local . 02 Pathologist provided ICD-10: K63.5, Z12.11 . 02 CPT . 088523 Performed at: 01 [facility] [address] [id number] MD Kota Cotter MD Phone: [phone] Performed at: [address] [facility] [address] [place], [place] [id number] MD Rylie Whitaker MD Phone: [phone]
[2020-08-23 10:40] VITALS: BP 174/89; PULSE 77; RESP 18; TEMP 36.4; O2SAT 95; BMI 25.8
[2020-08-23] MEDS: LACTATED RINGERS 1,000 ML 200 ML IV (10:51)
--- NOTE | 2020-08-23 12:12 | PM.PREOP ---
Pre-operative Note COVID-19 COVID-19 status: Negative Result date/Date tested (Pos, Neg/Pending): 08/20/20 Interval Note History & Physical reviewed/Exam performed by Physician: Yes Changes to H&P: No ASA Class (for procedural sedation): III
[2020-08-23] MEDS: MIDAZOLAM 5 MG/5 ML VIAL IV (12:15)
[2020-08-23] MEDS: ONDANSETRON 4 MG/2 ML INJ IV (12:17)
[2020-08-23] MEDS: fentaNYL 250 MCG/5 ML INJ IV (12:18)
--- NOTE | 2020-08-23 13:02 | PM.OP.ENDO ---
Operative Date/Time/Diagnoses Date of procedure: 08/23/20 Time of procedure: 13:03 Pre-op diagnosis: Screening colonoscopy. This is his 1st exam. Post-op diagnosis: same (Elongated redundant colon. Single polyp at 40 cm from the anal verge. Internal hemorrhoids without ulceration.) Procedure & Clinicians Study performed: Colonoscopy with hot snare polypectomy Same procedure as scheduled: Yes Indications: Screening exam. Slight change in bowel habits. Surgeon: Teo Lopez Procedure Notes SCOAP/Timeout: Performed Procedure in detail: The patient was placed in the left lateral decubitus position and underwent IV sedation directed by the surgeon consisting of fentanyl and Versed. Digital exam was remarkable for a small nodule that appeared to be on his prostate.(I could not identify any mucosal lesions in the region despite carefully looking for one). The scope was inserted and advanced through the rectum into the sigmoid, descending, transverse, and ascending colon. His colon was quite redundant and floppy. Pressure was applied, stiffener was inserted, the patient was repositioned. A polyp was noted at about 40 cm from the anal verge on the way in which I decided to snare on the way out.. Ultimately The cecum was reached identified by the ileocecal valve and the appendiceal opening. The scope was gradually brought out. The scope ultimately was retroflexed in the rectum. The appearance was remarkable for hemorrhoids without ulceration. I had to reinsert the scope in order to find the polyp at 40 cm. I was ultimately successful and snared it and it appeared to be completely removed. The scope was removed and the patient tolerated the procedure well. There was a lot of fluid in the colon but ultimately with suction the prep was good Scope withdrawal time: 11-1/2 minutes Sedation minutes: 45 Findings: internal hemorrhoids and polyp (40 cm in the anal verge) Specimen(s): other (Polyp) Complications: none Post-procedure Recommendations: Colonscopy in 5 years and Start medication(s) (Metamucil daily to help with constipation.) Follow up: as needed Disposition: PACU
[2020-08-23 13:09] VITALS: BP 161/83; PULSE 75; RESP 12; TEMP 36.3; O2SAT 97
[2020-08-23 13:13] VITALS: BP 154/82; PULSE 75; RESP 13; TEMP 36; O2SAT 96
[2020-08-23 13:18] VITALS: BP 150/93; PULSE 76; RESP 25; TEMP 36.3; O2SAT 94
[2020-08-23 13:23] VITALS: BP 163/78; PULSE 76; RESP 19; TEMP 36.6; O2SAT 95
[2020-08-23 13:27] VITALS: BP 156/84; PULSE 70; RESP 14; TEMP 36.2; O2SAT 96
--- NOTE | 2020-08-23 13:49 | SUR.PHASEII ---
Assisted patient with placing clothing on due to unsteady gait associated with parkinson's. Patient to private vehicle to go home with . Stable at discharge.
== END 2020-08-23 13:50 | disposition home or self-care (01) ==
PROVIDERS: PCP Family Medicine; Referring Provider Specialist; Visit Provider Specialist
PROC: 0DJD8ZZ Inspection of Lower Intestinal Tract, Via Natural or Artificial Opening Endoscopic (ICD-10-PCS; CPT 45378; principal; 2020-08-23 11:30)
DX: G20 Parkinson's disease (principal); Z12.11 Encounter for screening for malignant neoplasm of colon; K64.4 Residual hemorrhoidal skin tags; D12.6 Benign neoplasm of colon, unspecified
CPT/HCPCS: 45385; 99152; 99153; J2250; J2405; J3010

== ENCOUNTER → 2020-08-30 13:03 | Outpatient (CLI) | payer MEDICARE, OTHER, SELFPAY ==
[2020-06-05 16:18] VITALS: BMI 25.8
[2020-08-30 14:55] LABS: Prostate Specific Antigen 0.381 ng/mL (0.10-4.00)
== END ==
PROVIDERS: Radiology Radiation Oncology; PCP Family Medicine; Referring Provider Family Medicine; Visit Provider Family Medicine
DX: C61 Malignant neoplasm of prostate (principal)
CPT/HCPCS: 36415; 84153

== ENCOUNTER 2020-12-30 06:39 | Emergency (ER) | payer MEDICARE, OTHER, SELFPAY ==
[2020-06-05 16:18] VITALS: BMI 25.8
[2020-12-30] VITALS (13 sets, daily range): BP systolic 152–201; BP diastolic 72–99; PULSE 53–68; RESP 16–27; TEMP 36.5; O2SAT 92–97; BMI 25.8
--- NOTE | 2020-12-30 06:48 | DI.RAD.S_ITS ---
PROCEDURE: XR CHEST 1V INDICATIONS: Chest Pain TECHNIQUE: One view of the chest was acquired. COMPARISON: [facility], CR, XR CHEST 1V, 06/05/2020, 14:53. FINDINGS: Surgical changes and devices: Left chest wall neural stimulators stable. Lungs and pleura: Patchy opacity noted left lung base concerning for pneumonia or aspiration. No pleural effusions or pneumothorax. Mediastinum: Mediastinal contours appear normal. Heart size is normal. Bones and chest wall: No suspicious bony lesions. Overlying soft tissues appear unremarkable. IMPRESSION: Left basilar pneumonia or aspiration. Dictated by: Vanita Phan MD, PhD on 12/30/2020 at 9:12 Approved by: Vanita Phan MD, PhD on 12/30/2020 at 9:13
--- NOTE | 2020-12-30 07:06 | ED.CHESTPAIN ---
HPI - Chest Pain General Chief Complaint: Chest Pain Stated Complaint: heaviness in chest/racing pulse Time Seen by Provider: 12/30/20 06:40 Source: patient Mode of arrival: Ambulatory Limitations: no limitations History of Present Illness HPI narrative: Patient is a 75-year-old male history of hypertension, Parkinson's and hairy cell leukemia presenting today with chest discomfort. He says that he noticed it yesterday it seems to be a dull ache constant nonradiating. He had all day yesterday no provocation or palliation. He denies any shortness of breath with exertion no nausea. This morning he woke up and was still having chest discomfort he said it did not seem to be any worse than it was previously and he took his blood pressure and it was elevated. Which point he decided to come to the emergency department. MD complaint: chest pain Onset (ago): day(s) Duration: constant Pain location: left chest Quality: dull Pain radiation: none Relieving factors: nothing Exacerbating factors: nothing Related Data Home Medications Medication Instructions Recorded Confirmed carbidopa ER 50 mg-levodopa 200 mg 1 tab PO QID 04/08/18 08/23/20 tablet,extended release rutin 450 mg PO QAM 06/19/18 08/23/20 acetaminophen [Tylenol] 325 mg PO Q6H PRN 06/26/18 08/23/20 Senokot-S 06/05/20 07/27/20 omeprazole 20 mg PO DAILY 06/05/20 08/23/20 carbidopa 25 mg-levodopa 100 mg 25 - 100 tab PO QID PRN tab 07/14/20 07/27/20 disintegrating tablet losartan 50 mg PO BID 12/30/20 12/30/20 Previous Rx's Medication Instructions Recorded Disabled Parking #1 each 03/05/19 triamcinolone acetonide 0.1 % 1 applictn TOP BID #30 gram 07/14/20 topical cream metoprolol succinate 25 mg 12.5 mg PO BID #45 tab 08/30/20 tablet,extended release 24 hr Allergies Allergy/AdvReac Type Severity Reaction Status Date / Time adhesive tape Allergy Intermediate Blister Verified 12/30/20 07:42 cefuroxime Allergy Mild rash/ Verified 12/30/20 07:42 itching codeine [CODEINE] Allergy Mild NAUSEA Verified 12/30/20 07:42 clindamycin AdvReac N/V Verified 12/30/20 07:42 Review of Systems Review of Systems Narrative: GENERAL: Denies chills, fatigue, malaise, fever, sweats, travel HEENT: Denies sinus pain, ear pain, sore throat, difficulty swallowing, neck pain RESPIRATORY: Denies dyspnea, cough, wheezing, hemoptysis, sputum. CARDIOVASCULAR: See HPI GASTROINTESTINAL: Denies nausea, vomiting, abdominal pain, diarrhea, constipation, melena. : Denies dysuria, frequency, incontinence, hematuria, urinary retention, flank pain. MUSCULOSKELETAL: Denies weakness, joint pain, or bony pain SKIN: No rash, no erythema, no pruritus NEUROLOGIC: Denies weakness, dizziness, headache, numbness, change in speech, confusion PSYCHIATRIC: No concerning psychosocial issues. 12 point review of systems is negative except for those stated above and HPI Patient History Medical History (Updated 12/30/20 @ 10:02 by Ernestina Rudolph DO) CVA (cerebral vascular accident) Hairy cell leukemia Hypertension Paresthesias in left hand Parkinsons disease Surgical History History of tonsillectomy S/P deep brain stimulator placement S/P TURP Social History household members: spouse Smoking Status: Former smoker alcohol intake: current substance use type: does not use Smoking Status: Former smoker alcohol intake frequency: holidays/special occasions only Substance Use Type: does not use Exam Initial Vital Signs Initial Vital Signs: Vital Signs Pulse Rate 65 12/30/20 06:47 Blood Pressure 201/99 H 12/30/20 06:47 GENERAL: Alert pleasant 75-year-old male and in [no acute] distress. HEENT: Head atraumatic,EOMI, pupils reactive, face symmetric, [moist] mucous membranes CARDIOVASCULAR: Regular rate and rhythm without murmurs, rubs or gallops. Deep brain stem stimulator noted on left chest RESPIRATORY: Breath sounds equal bilaterally, no wheezes rales or rhonchi. ABDOMEN: Soft, nontender. Normoactive bowel sounds all 4 quadrants. No guarding or rebound. : No CVA tenderness EXTREMITIES: Normal range of motion, no clubbing or edema. Neurovascularly intact NEUROLOGICAL: Alert and oriented x4.Normal gait and speech. Cranial nerves II through XII grossly intact. SKIN: Warm, dry, no laceration, no petechiae, no rashes or lesions. Scores HEART Score Heart Score history: Slightly Suspicious Heart Score EKG: Normal Heart Score Age: > or = 65 years old Heart Score risk factors: 1-2 risk factors Heart Score troponin: < or = to normal limit Heart Score Total: 3 Course Orders Ordered: ED Orders 12/30/20 06:48 XR chest 1V Stat EKG-12 Lead Stat 12/30/20 07:05 Complete Blood Count AUTO DIFF Stat Comprehensive Metabolic Panel Stat Lipase Stat NT-proBNP (BNP-Adult 18+) Stat Troponin & CK Cardiac Panel Stat 12/30/20 09:16 Trop I [Troponin I] Stat 12/30/20 09:53 EKG-12 Lead Routine Sodium Chloride (Normal Saline 0.9%) 1,000 mls @ 150 mls/hr IV CONT ZEYNEP Last Infusion: 12/30/20 09:42 Dose: 0 mls/hr Documented by: Admin: 12/30/20 07:22 Dose: 150 mls/hr Documented by: KIM Vital Signs Vital signs: Vital Signs - 8 hr 12/30/20 06:47 12/30/20 06:50 12/30/20 07:00 Temperature 97.7 F Pulse Rate 65 60 65 Respiratory Rate 16 27 H Blood Pressure 201/99 H 201/99 H Pulse Oximetry 97 97 12/30/20 07:17 12/30/20 07:20 12/30/20 07:30 Temperature Pulse Rate 62 61 68 Respiratory Rate 21 23 Blood Pressure 194/91 H 194/91 H 152/73 H Pulse Oximetry 97 92 12/30/20 08:00 12/30/20 08:30 12/30/20 08:31 Temperature Pulse Rate 57 L 55 L 57 L Respiratory Rate 19 21 26 H Blood Pressure 170/76 H 152/72 H Pulse Oximetry 97 95 96 MDM - Chest Pain Lab Data Attestation: I reviewed the patient's lab results. Result diagrams: 12/30/20 07:05 12/30/20 07:05 Labs: Lab Results 12/30/20 12/30/20 12/30/20 Range/Units 07:05 07:05 07:05 WBC 4.1 L (4.5-11.0) X10^3/uL RBC 4.71 (4.5-5.9) X10^6/uL Hgb 13.8 (13.5-17.5) g/dL Hct 40.5 L (41-53) % MCV 86.1 (80-100) fL MCH 29.3 (26-34) PG MCHC 34.0 (30-36) % RDW 13.1 (11.6-14.8) % Plt Count 148 L (150-400) X10^3/uL Neut % (Auto) 63.1 (50-75) % Lymph % (Auto) 18.6 L (25-40) % [place] % (Auto) 10.2 (3-14) % Eos % (Auto) 7.2 H (2-4) % Baso % (Auto) 0.9 (0-2) % Neut # (Auto) 2600 (9507-2417) /uL Lymph # (Auto) 800 L (8926-1202) /uL [place] # (Auto) 400 (0-900) /uL Eos # (Auto) 300 (0-450) /uL Baso # (Auto) 0 (0-100) /uL Sodium 136 L (137-145) mmol/L Potassium 3.9 (3.4-5.1) mmol/L Chloride 103 (98-107) mmol/L Carbon Dioxide 31 (22-32) mmol/L BUN 18 (9-20) mg/dL Creatinine 0.85 (0.66-1.25) mg/dL Estimated GFR > 60.0 (>60) mL/min BUN/Creatinine Ratio 21.2 (6-22) Glucose 99 (80-110) mg/dL Calcium 9.0 (8.4-10.2) mg/dL Total Bilirubin 0.7 (0.2-1.3) mg/dL AST 14 L (17-59) IU/L ALT 4 (<50) IU/L Alkaline Phosphatase 72 (38-126) U/L Total Creatine Kinase 38 L (55-170) U/L CK-MB (CK-2) TNP CK-MB (CK-2) Rel Index TNP Troponin I < 0.012 Cancelled (0.01-0.034) ng/mL NT-Pro-B Natriuret Pep 187 H (<125) pg/mL Total Protein 6.5 (6.3-8.2) g/dL Albumin 3.9 (3.5-5.0) g/dL Globulin 2.6 (1.7-4.1) g/dL Albumin/Globulin Ratio 1.5 (1.0-2.8) Lipase 63 (23-300) U/L 12/30/20 Range/Units 09:16 WBC (4.5-11.0) X10^3/uL RBC (4.5-5.9) X10^6/uL Hgb (13.5-17.5) g/dL Hct (41-53) % MCV (80-100) fL MCH (26-34) PG MCHC (30-36) % RDW (11.6-14.8) % Plt Count (150-400) X10^3/uL Neut % (Auto) (50-75) % Lymph % (Auto) (25-40) % [place] % (Auto) (3-14) % Eos % (Auto) (2-4) % Baso % (Auto) (0-2) % Neut # (Auto) (7347-7261) /uL Lymph # (Auto) (1099-1566) /uL [place] # (Auto) (0-900) /uL Eos # (Auto) (0-450) /uL Baso # (Auto) (0-100) /uL Sodium (137-145) mmol/L Potassium (3.4-5.1) mmol/L Chloride (98-107) mmol/L Carbon Dioxide (22-32) mmol/L BUN (9-20) mg/dL Creatinine (0.66-1.25) mg/dL Estimated GFR (>60) mL/min BUN/Creatinine Ratio (6-22) Glucose (80-110) mg/dL Calcium (8.4-10.2) mg/dL Total Bilirubin (0.2-1.3) mg/dL AST (17-59) IU/L ALT (<50) IU/L Alkaline Phosphatase (38-126) U/L Total Creatine Kinase (55-170) U/L CK-MB (CK-2) CK-MB (CK-2) Rel Index Troponin I < 0.012 (0.01-0.034) ng/mL NT-Pro-B Natriuret Pep (<125) pg/mL Total Protein (6.3-8.2) g/dL Albumin (3.5-5.0) g/dL Globulin (1.7-4.1) g/dL Albumin/Globulin Ratio (1.0-2.8) Lipase (23-300) U/L Imaging Data Chest x-ray: Radiologist's Impression: PROCEDURE: XR CHEST 1V INDICATIONS: Chest Pain TECHNIQUE: One view of the chest was acquired. COMPARISON: [facility], , XR CHEST 1V, 06/05/2020, 14:53. FINDINGS: Surgical changes and devices: Left chest wall neural stimulators stable. Lungs and pleura: Patchy opacity noted left lung base concerning for pneumonia or aspiration. No pleural effusions or pneumothorax. Mediastinum: Mediastinal contours appear normal. Heart size is normal. Bones and chest wall: No suspicious bony lesions. Overlying soft tissues appear unremarkable. IMPRESSION: Left basilar pneumonia or aspiration. ECG Data Attestation: I personally reviewed and interpreted this ECG as follows: Prior ECG tracings: available for review Interpretation: Sinus rhythm rate [address] changes he later noted no ST changes EKG 2. Sinus rhythm MDM Narrative Medical decision making narrative: Patient took aspirin prior to arrival he is given nitroglycerin year. Pain seems to come and go it has been ongoing for about 24 hours. Low risk heart score 2 negative troponins. Chest pain-free in the ED. X-ray does show pneumonia. However upper patient has no signs or symptoms of pneumonia. He has no leukocytosis no fever cough or shortness of breath. And discussed with both he and his strict return precautions and possible need for further cardiac workup as an outpatient Discharge Plan Departure Patient Disposition: Home Clinical Impression: Atypical chest pain Instructions: DI for Atypical Chest Pain Activity Restrictions/Additional Instructions: *You have been diagnosed with atypical chest pain *What to do: You may require further cardiac testing such as a stress test. However at this time we do not need to stay in the hospital. Your x-ray showed possible pneumonia however at this time he do not have signs or symptoms of pneumonia and no antibiotics are indicated *Continue to take medications as directed *Follow up with your primary care provider in 2-3 days *Return to ER if you should have worsening chest pain, shortness of breath or any new, worsening or concerning symptoms Prescriptions: No Action carbidopa-levodopa 50-200 mg tablet extended release 1 tab PO QID RF: 0 (DME) Disabled Parking 0 .ROUTE .MEDSUPPLY Qty: 1 RF: 0 metoprolol succinate 25 mg tablet extended release 24 hr 12.5 mg PO BID Qty: 45 RF: 0 carbidopa-levodopa 25-100 mg tablet,disintegrating 25 - 100 tab PO QID PRN (Reason: parkinson's symptoms) RF: 0 triamcinolone acetonide 0.1 % cream 1 applictn TOP BID Qty: 30 RF: 5 rutin 500 mg Tablet 450 mg PO QAM RF: 0 acetaminophen [Tylenol] 325 mg Tablet 325 mg PO Q6H PRN (Reason: Pain (Scale Score 1-3)) RF: 0 omeprazole 20 mg 20 mg PO DAILY RF: 0 Senokot-S RF: 0 losartan 50 mg tablet 50 mg PO BID RF: 0 Referrals: Layton Kaiser MD [Primary Care Provider] -
[2020-12-30] MEDS: NITROGLYCERIN 0.4 MG SL TAB SL (07:20)
[2020-12-30] MEDS: SODIUM CHLORIDE 0.9% 1,000 ML 150 ML IV (07:22)
[2020-12-30 07:23] LABS: Add Manual Diff / Slide Review NO; Basophils Absolute Auto 0 /uL (0-100); Basophils Percent Auto 0.9 % (0-2); Eosinophils Absolute Auto 300 /uL (0-450); Eosinophils Percent Auto 7.2 % (2-4); Hematocrit 40.5 % (41-53); Hemoglobin 13.8 g/dL (13.5-17.5); Lymphocytes Absolute Auto 800 /uL (1100-4500); Lymphocytes Percent Auto 18.6 % (25-40); Mean Corpuscular Hemoglobin 29.3 PG (26-34); Mean Corpuscular Volume 86.1 fL (80-100); Monocytes Absolute Auto 400 /uL (0-900); Monocytes Percent Auto 10.2 % (3-14); Neutrophils Absolute Auto 2600 /uL (1500-7000); Neutrophils Percent Auto 63.1 % (50-75); Platelet Count 148 X10^3/uL (150-400); Red Blood Cell Count 4.71 X10^6/uL (4.5-5.9); Red Cell Distribution Width 13.1 % (11.6-14.8); White Blood Cell Count 4.1 X10^3/uL (4.5-11.0)
[2020-12-30 07:29] LABS: Alanine Aminotransferase 4 IU/L (<50); Albumin 3.9 g/dL (3.5-5.0); Albumin Globulin Ratio 1.5 (1.0-2.8); Alkaline Phosphatase 72 U/L (38-126); Aspartate Aminotransferase 14 IU/L (17-59); BUN Creatinine Ratio 21.2 (6-22); Bilirubin Total 0.7 mg/dL (0.2-1.3); Blood Urea Nitrogen 18 mg/dL (9-20); Carbon Dioxide 31 mmol/L (22-32); Chloride 103 mmol/L (98-107); Creatine Kinase 38 U/L (55-170); Estimated Glomerular Filt Rate > 60.0 mL/min (>60); Globulin 2.6 g/dL (1.7-4.1); Glucose 99 mg/dL (80-110); HEMOLYSIS < 15 (0-50); Lipase 63 U/L (23-300); Potassium 3.9 mmol/L (3.4-5.1); Sodium 136 mmol/L (137-145); Total Protein 6.5 g/dL (6.3-8.2)
[2020-12-30 07:41] LABS: NT-proBNP (BNP-Adult 18+) 187 pg/mL (<125); Troponin I < 0.012 ng/mL (0.01-0.034)
[2020-12-30 09:44] LABS: Troponin I < 0.012 ng/mL (0.01-0.034)
== END 2020-12-30 10:22 | disposition home or self-care (01) ==
PROVIDERS: Emergency Medicine; Emergency Provider Emergency Medicine; PCP Family Medicine
DX: R07.89 Other chest pain (principal); I10 Essential (primary) hypertension; G20 Parkinson's disease; C91.40 Hairy cell leukemia not having achieved remission
CPT/HCPCS: 36415; 71045; 80053; 82550; 83690; 83880; 84484; 85025; 93005; 96360; 96361; 99283; 99284

== ENCOUNTER → 2021-01-25 11:35 | Outpatient (CLI) | payer MEDICARE, OTHER, SELFPAY ==
[2020-06-05 16:18] VITALS: BMI 25.8
[2021-01-25 13:16] LABS: COVID19 -Nasal RAPID Negative (Negative)
== END ==
PROVIDERS: PCP Family Medicine; Visit Provider Nurse Practitioner Family
DX: Z01.812 Encounter for preprocedural laboratory examination (principal); Z20.822 Contact with and (suspected) exposure to COVID-19
CPT/HCPCS: 87635; C9803

== ENCOUNTER → 2021-01-26 10:18 | Outpatient (CLI) | payer MEDICARE, OTHER, SELFPAY ==
[2020-06-05 16:18] VITALS: BMI 25.8
--- NOTE | 2021-01-26 10:20 | DI.NM.S_ITS ---
PROCEDURE: NM YADIRA PERF SPECT R&S PHARM Rest and pharmacological stress myocardial perfusion SPECT with gated imaging and ejection fraction RADIOPHARMACEUTICAL: 11.6 mCi Tc-99m tetrafosmin IV at rest and 26.7 mCi Tc-99m tetrafosmin IV at peak effect of pharmacological stress. [id number] was performed. INDICATIONS: atypical chest pain TECHNIQUE: Radiopharmaceutical was injected at peak stress test, and also at rest. SPECT images were obtained. SPECT myocardial perfusion images were displayed in short axis, horizontal long axis, and vertical long axis views. Gated images were reviewed using [place] software. COMPARISON: None. CARDIAC STRESS: A pharmacologic stress test was performed under the supervision of an attending staff, using an infusion of lexiscan 0.4mg IV X1. Hemodynamic data: There is normal blood pressure and heart rate response to pharmacologic stress. Symptoms: The patient denied anginal chest pain. Aminophylline: none EKG: No diagnostic changes of ischemia; no ectopy. FINDINGS: Raw data: There is good myocardial uptake of radiotracer. No significant motion artifacts. Left ventricle function: Gated images not done due to deep brain stimulator interference. No transient ischemic dilation; TID is 0.92 (normal less than 1.3). Myocardial perfusion: There is a mildly intense inferior wall defect at rest that resolves with stress imaging, suggesting artifact than true ischemia or infarction. IMPRESSION: Low risk, probably normal pharmaceutical nuclear stress test. 1) No perfusion evidence of ischemia or infarction. There is a mildly intense inferior wall defect at rest that resolves with stress imaging, suggesting artifact. 2) No ECG evidence of ischemia. 3) No angina during the study. 4) Compared to the nuclear stress test done 12/16/2017, no significant change. Dictated by: Gabriela Alcantara MD on 01/27/2021 at 9:19 Approved by: Gabriela Alcantara MD on 01/27/2021 at 9:22
--- NOTE | 2021-01-26 14:36 | PM.TREADMILL ---
Cardiac Stress Test Report Referral & Results Date Patient Seen: 01/26/21 Requesting provider: Anson Benitez Indication: Chest pain Rest ECG: Unremarkable Procedure Note: After both written and verbal informed consent the patient had an IV started by the diagnostic imaging RN, and then was hooked up to the treadmill monitoring system. The Lexiscan material, and then the Cardiolite tracer, were administered sequentially. An additional 3 min was spent monitoring the patient while supine on the gurney. The patient had a normal response to all infused materials. Impression: Normal response to infused materials Please see perfusion imaging report for details regarding possible ischemia Please note: Actual ECG tracings can be found in the PACS system.
== END ==
PROVIDERS: PCP Family Medicine; Referring Provider Family Medicine; Visit Provider Family Medicine
DX: R07.89 Other chest pain (principal)
CPT/HCPCS: 78452; 93016; 93017; 93018; A9502; J2785

== ENCOUNTER → 2021-03-15 14:39 | Outpatient (CLI) | payer MEDICARE, OTHER, SELFPAY ==
[2020-06-05 16:18] VITALS: BMI 25.8
--- NOTE | 2021-03-15 14:41 | DI.ECHO.S_ITS ---
[facility] +---------+ : : [address] [place] : : : : [id number] : : : : Phone: [phone]---------+ Echocardiogram Report + + :Name: ASHLEY CONNELLY V Study Date: 03/15/2021 Height: 70 in : :[facility] ReadingLocation: Weight: 175 lb : : Gender: Male BSA: 2.0 m2 : :: 1945 Age: 75 yrs BP: 168/87 mmHg: :Reason For Study: MURMUR AND CHEST PAIN : :Ordering Physician: MOSES, : :[facility] Performed By: Hyacinth Barrett : :Referring: [facility] LOPES : + + Interpretation Summary The left ventricle is normal in size. The ejection fraction is estimated to be 60-65%. There has been no significant change in LVEF since the previous exam. The right ventricle is normal in size and function. There is mild to moderate aortic regurgitation. Compared to the prior echo study, there has been no change in the severity of aortic regurgitation. There is no hemodynamically significant valvular aortic stenosis. Mild atherosclerotic plaque(s) in the aortic arch. 3.7 cm in diameter. Previously it was 3.6 cm. Procedure: A two-dimensional transthoracic echocardiogram with color flow and Doppler was performed. The study quality was technically adequate. Comparison is made with the echocardiogram of 05/25/2019. The patient was in sinus rhythm with heart rates between 56-69 bpm during the exam. Left Ventricle: The left ventricle is normal in size. There is mild concentric left ventricular hypertrophy. There is no thrombus. A false chord is noted (normal variant). The ejection fraction is estimated to be 60-65%. There has been no significant change since the previous exam. There are no focal wall motion abnormalities. MV E/A: 0.68 Med Peak E' Jamal: 3.2 cm/sec E/E' med: 11.6. Right Ventricle: The right ventricle is normal in size and function. Atria: The left atrium is mildly dilated. The left atrium has significantly decreased in size since the prior echo exam. Right atrial size is normal. There is no Doppler evidence for an interatrial shunt. Mitral Valve: There is mild mitral annular calcification. The mitral valve leaflets appear mildly thickened, but open well. There is trace mitral regurgitation. Aortic Valve: The aortic valve is trileaflet. The aortic valve is mildly calcified. There is mildly reduced leaflet mobility. There is mild aortic valve sclerosis. There is no hemodynamically significant valvular aortic stenosis. There is mild to moderate aortic regurgitation. Compared to the prior echo study, there has been no change in the severity of aortic regurgitation. Tricuspid Valve: The tricuspid valve is normal in structure and function. There is trace tricuspid regurgitation. Pulmonary artery pressures cannot be estimated because of the lack of a measurable TR jet velocity but the IVC suggests a CVP of around 3 mmHg. Pulmonic Valve: The pulmonic valve is not well seen, but is grossly normal. There is trace pulmonic regurgitation. Great Vessels: The aortic root is normal size. There is aortic root sclerosis/calcification. The ascending aorta is at the upper limits of normal in size. Mild atherosclerotic plaque(s) in the aortic arch. The IVC is of normal diameter and collapses greater than 50% with a sniff. This suggests a low right atrial pressure of 3 mm Hg. Pericardium/ Pleura There is no pericardial effusion. There is no pleural effusion. MMode/2D Measurements & Calculations LVIDd: 4.8 cm LVOT diam: 2.0 cm LVIDs: 3.3 cm Ao root diam: 3.7 cm FS: 31.2 % asc Aorta Diam: 3.6 cm EPSS: 0.64 cm Ao Arch Diam (Prox Trans): 3.7 cm IVSd: 1.4 cm LVPWd: 1.2 cm LV garrido. diameter/BSA (cm/m^2): 2.4 LV sys. diameter/BSA (cm/m^2): 1.7 LA A2 area: 22.0 cm2 RA long axis: 5.0 cm LA A4 area: 18.1 cm2 RA area: 15.8 cm2 LA length (vol): 4.7 cm RA vol: 42.9 ml LA vol: 71.3 ml RA : 21.8 ml/m2 LA vol index: 36.1 ml/m2 IVC diam: 1.5 cm RVD1 (basal): 2.9 cm TAPSE: 1.7 cm Doppler Measurements & Calculations Ao V2 max: 122.7 cm/sec LVOT Max Jamal: 110.0 cm/sec Ao V2 mean: 82.5 cm/sec LV V1 max P.8 mmHg Ao max P.0 mmHg LV V1 VTI: 23.6 cm Ao mean P.1 mmHg CLARENCE(I,D): 3.0 cm2 Ao V2 VTI: 25.4 cm CLARENCE(V,D): 2.9 cm2 sev ratio: 0.93 CLARENCE indexed to BSA (cm^2/m^2): 1.5 AI P1/2t: 667.4 msec AI dec slope: 178.1 cm/sec2 MV E max jamal: 37.7 cm/sec PA V2 max: 78.7 cm/sec MV A max jamal: 55.6 cm/sec PA V2 mean: 51.1 cm/sec MV E/A: 0.68 PA mean P.2 mmHg Med Peak E' Jamal: 3.2 cm/sec PA pr(Accel): 24.2 mmHg E/E' med: 11.6 Lat Peak E' Jamal: 4.8 cm/sec E/E' lat: 7.9 E/e' average: 9.7 MV dec time: 0.44 sec SV(LVOT): 75.7 ml Reading Physician:04:53 PM
== END ==
PROVIDERS: PCP Family Medicine; Referring Provider Family Medicine; Visit Provider Family Medicine
DX: I35.1 Nonrheumatic aortic (valve) insufficiency (principal); I70.0 Atherosclerosis of aorta; R07.89 Other chest pain; R01.1 Cardiac murmur, unspecified
CPT/HCPCS: 93306

== ENCOUNTER → 2021-08-25 14:30 | Outpatient (CLI) | payer MEDICARE, OTHER, SELFPAY ==
[2020-06-05 16:18] VITALS: BMI 25.8
== END ==
PROVIDERS: PCP Family Medicine; Referring Provider Radiology Radiation Oncology; Visit Provider Radiology Radiation Oncology
DX: C61 Malignant neoplasm of prostate (principal)
CPT/HCPCS: 84153

== ENCOUNTER 2021-09-11 14:15 | Outpatient (RCR) | payer MEDICARE, OTHER, SELFPAY ==
[2020-06-05 16:18] VITALS: BMI 25.8
--- NOTE | 2021-08-14 15:39 | PT.OPPOC ---
Physical, Occupational & Speech Therapy At [facility] Current Diagnoses Parkinson's disease (08/14/21) Visit Care Team Role Provider Type Anson Benitez MD Primary Care Provider Physician Specialty: Family Practice Address: [address] [place] [address], [id number] Email: [email or web address] Susan Lawrence MD Attending Provider Non-Staff Referring Provider Specialty: Neurology Address: [address] [place] [address], [id number] Email: Plan Of Care PT-OP-T Assessment and Plan Start: 08/11/21 15:40 Freq: Status: Active Protocol: Document 08/14/21 14:00 MB (Rec: 08/14/21 15:38 MB [id number]) Physical Therapy Assessment Rehab Potential Rehabilitation Potential Fair Evaluation Complexity Number of Personal Factors/Comorbidities 3 or More Number of Body Systems Impaired 3 Clinical Presentation at Evaluation Evolving Impairments Impairments Activity Tolerance,Balance, Coordination,Functional Activities,Functional Mobility ,Gait,Pain,Posture,ROM, Strength,Transfers Other Impairments Personal factors include soft speech, cognitive changes, pt is not on a consistent sleeping or medication schedule. Body systems affected include cognitive, musculoskeletal and neurological. His clinical presentation is evolving. Other Concerns Fall Risk Yes Goals 3 Snf Goal (LTG) Pt will gait train at least 1300 feet without AD in 6 minutes to improve community ambulation by the end of 16 treatments. LTG Duration 16 treatments 2 Supervisor Pressing Department Goal (LTG) Pt will perform 10 reps sit to stand without UE support in 30 sec with controlled sit to stand movement and no LOB to improve transfers by the end of 16 treatments. LTG Duration 16 treatments 1 Supervisor Pressing Department Goal (LTG) Pt will perform BIG exercises, daily functional tasks and walking with superv from to improve amplitude of movement, gait and balance by end of 16 treatments. LTG Duration 16 treatments Assessment Summary Assessment Pt is a 76 y/o male presenting with PD symptoms since 2003. He presents with soft speech, poor body awareness, impulsitivity, dysmetric movement left greater than right LE and UE with coordination testing, decreased control of movement with sit to stands and gait and impaired cognition today. He has the most difficulty with tapping left foot over the right foot, tends to quickly move to standing for sit to stands and almost falls backwards after first rep, requiring cues and moving from chair to plinth, and can perform 8 reps in 30 sec today . His gait with cane is very poor. Overall, his self- awareness with movement is very poor. He is at increased risk for falls. Cognitive impairment may be a barrier to PT. He will benefit from LSVT BIG therapy to improve movement, gait and balance. Physical Therapy Plan Frequency and Duration Frequency of Treatment 4x/Week Duration of Treatment 16 treatments Plan of Care Start Date 08/14/21 Plan of Care End Date 09/13/21 Therapeutic Interventions Therapeutic Interventions Balance Training,Canalithic Repositioning,Coordination Training,Gait Training,Home Exercise Program,Neuromuscular Re-education,Patient/ Caregiver Education,Self-Care/ Home Management,Soft Tissue Mobilization,Therapeutic Activities,Therapeutic Exercises Modalities Cold Pack/Ice Massage,Hot Packs Next Visit Focus/Plan Next Note Type Treatment Note Next Visit Plan Initiate BIG exercises and review functional task handout Plan of Care Dates Plan of Care Start Date 08/14/21 Plan of Care End Date 09/13/21 Electronically Signed by: Andressa Damon, PT 08/14/21 [id number] Please Sign and Return: I have reviewed this Plan of Care and certify that the skilled therapy services above are required to meet the patient?s needs. Physician Signature Date Printed Name and Credentials Clinical Instructor Signature Printed Name and Credentials
--- NOTE | 2021-08-14 15:39 | PT.OIE ---
Current Diagnoses Parkinson's disease (08/14/21) Past Medical History (Last Reviewed 04/14/21 @ 15:58 by Anson Benitez MD) Chronic low back pain with sciatica CVA (cerebral vascular accident) Hairy cell leukemia Headache Hypertension Paresthesias in left hand Parkinsons disease S/P deep brain stimulator placement S/P TURP Past Surgical History (Last Reviewed 04/14/21 @ 15:58 by Anson Benitez MD) History of tonsillectomy S/P deep brain stimulator placement S/P TURP Visit Care Team Role Provider Type Anson Benitez MD Primary Care Provider Physician Specialty: Family Practice Address: [address] [place] [address], [id number] Email: [email or web address] Susan Lawrence MD Attending Provider Non-Staff Referring Provider Specialty: Neurology Address: [address] [place] [address], [id number] Email: Physical Therapy Initial Evaluation PT-OP-A Visit Information Start: 08/11/21 15:40 Freq: Status: Active Protocol: Document 08/14/21 14:00 MB (Rec: 08/14/21 14:41 MB [id number]) Out-Patient Physical Therapy Visit Information Visit Information Visit Type Initial Evaluation Visit Note Medicare, Cigna Pt goes by Eduar is Elvie Visit Start Time 14:00 Visit Stop Time 15:10 Total Visit Minutes 65 Visit Number 1 Evaluation Information Evaluation Date 08/14/21 PT-OP-B Current Condition Start: 08/11/21 15:40 Freq: Status: Active Protocol: Document 08/14/21 14:00 MB (Rec: 08/14/21 14:41 MB [id number]) Current Condition History of Current Condition Onset Date 2003 Current Complaints Imbalance History of Current Condition Pt has some trouble with swallowing including rice and apple peels. Pt's speech is very soft. Pt likes tomatoes. His dad had a grocery store in [place]. Pt reports that his PD symptoms started in 2003. His right thumb started trembling. 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 He had chemo treatment. He had three deep brain stimulator surgeries. He has several probes and perhaps some may not be working. He has the battery at left [facility] area. It takes 30 minutes to charge everyday. He charges it at 3-4 p.m. everday. He cannot have any MRIs d/t the stimulator. Pt's neurologist, Dr. Susan Lawrence, adjusts his stimulator. Pt states that the stimulator has allowed him to take less Carbidopa Levodopa. He and dislike his soft speech. Pt reports that his tremor starts in his face and then moves in his body. He then feels it in his thumb. His mood changes some. He takes naps during the day. He gets up at different times in the morning. He is taking his medicine 1 hour before bed and the pills last 4-5 hours. He tries to take his first dose of Carbidopa Levodopa within an hour of waking up and then every 4 hours (per ). He occ takes Tylenol when he feels fog and headache starts coming on so he can defer when he has to take the Carbidopa Levodopa. He feels pounding and shaking occ in his head. The PD medication helps with tremor, shaking and brain fog. 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 Pt lives with his and there is one step in the garage to come into the house. He drives every now and then. He drives if his is afraid like in the city of [place]. Pt has a cane and a walker. He made it into a stand-up walker. He uses this when he walks the dog. Pt has a small dog named Rober. Pt had 1 fall in the last three months. He would like to get back to driving his car and pulling RV with diesel truck and feeling like he should be doing that. Pt reports imbalance with walking on an incline and uneven surfaces like the yard. His biggest PD related problems are brain fog, speaking softly, urinary urgency, headaches, walking. Pt has a history of prostate CA. He had radiation. He is getting up at night-time to go to the bathroom, up to 3x/ night. Pt is a and was in [place]. He may have been exposed to agent orange from [employer] equipment. [facility] as his exposure has not been recognized. Treatment Goals Patient/Caregiver Goals Improved balance and ability to get from point A to point B with control without running into objects or having to land to prevent fall. PT-OP-C Subjective Start: 08/11/21 15:40 Freq: Status: Active Protocol: Document 08/14/21 14:00 MB (Rec: 08/14/21 14:41 MB [id number]) OP-PT Subjective Patient Comments Patient Comments History of current condition. PT-OP-G Mobility & Gait Start: 08/11/21 15:40 Freq: Status: Active Protocol: Document 08/14/21 14:00 MB (Rec: 08/14/21 15:38 MB [id number]) OP Gait Assessment Comments Gait Comments Pt carries straight cane with wide base in right hand. He does not advance it with his left foot and tends to put it down at parts of gait where he loses his balance: when distracted, he keeps it behind him and then he loses his balance backwards and is able to self-correct. Overall, his gait is better without AD. PT-OP-M Strength Start: 08/11/21 15:40 Freq: Status: Active Protocol: Document 08/14/21 14:00 MB (Rec: 08/14/21 15:38 MB [id number]) Shoulder Strength Shoulder Manual Muscle Testing Bilateral Flexion 5 Normal Abduction (C5) 5 Normal Comments Limited end-range full shoulder flexion B, greater on the left and pt and report old left shoulder injury. Decreased left elbow extension as well. Elbow/Forearm Strength Elbow and Forearm Manual Muscle Testing Bilateral Flexion (C6) 5 Normal Extension (C7) 5 Normal Hip Strength Hip Manual Muscle Testing Bilateral Flexion (L2) 4 Good Knee Strength Knee Manual Muscle Testing Bilateral Flexion (S2) 5 Normal Extension (L3) 5 Normal Ankle/Foot Strength Ankle and Foot Manual Muscle Testing Bilateral Dorsiflexion (L4) 5 Normal Toe Strength Toe Manual Muscle Testing Left Great Toe Extension 4 Good Right Great Toe Extension 4 Good PT-OP-Q Treatments Start: 08/11/21 15:40 Freq: Status: Active Protocol: Document 08/14/21 14:00 MB (Rec: 08/14/21 15:20 MB [id number]) Gait Training Gait Activity 6MWT Comments Pt gait trains 1051 feet in 6 minutes. He is cautious with gait after PT asks him to walk safely and not run into the guerrero. He presents with narrow SUSAN and decrease arm swing B, greater on the left. He has minimal B scuffing of feet occasionally. No LOB with gait today but he cannot increase his mandi when asked. He does not have more imbalance with talking during gait. Self-Care/Home Management Treatment Education Patient Education Home Exercise Program Other Education Education to pt and : handout and ed about LSVT BIG, benefits of getting homework helper DVD and provided discount code, commitment of BIG--exercise and gait with PT four days a week, exercise and gait a second time at home PT dates and BID at home on non-PT dates, ed pt and on appointment time, ed pt and in importance of getting to bed at the same time and waking up at the same time, taking medications at the same time to help with exercise schedule and improvements. Ed pt and in need to pick and then fill out functional task handout for tomorrow PT-OP-T Assessment and Plan Start: 08/11/21 15:40 Freq: Status: Active Protocol: Document 08/14/21 14:00 MB (Rec: 08/14/21 15:38 MB [id number]) Physical Therapy Assessment Rehab Potential Rehabilitation Potential Fair Evaluation Complexity Number of Personal Factors/Comorbidities 3 or More Number of Body Systems Impaired 3 Clinical Presentation at Evaluation Evolving Impairments Impairments Activity Tolerance,Balance, Coordination,Functional Activities,Functional Mobility ,Gait,Pain,Posture,ROM, Strength,Transfers Other Impairments Personal factors include soft speech, cognitive changes, pt is not on a consistent sleeping or medication schedule. Body systems affected include cognitive, musculoskeletal and neurological. His clinical presentation is evolving. Other Concerns Fall Risk Yes Goals 3 Beef Grader Goal (LTG) Pt will gait train at least 1300 feet without AD in 6 minutes to improve community ambulation by the end of 16 treatments. LTG Duration 16 treatments 2 Beef Grader Goal (LTG) Pt will perform 10 reps sit to stand without UE support in 30 sec with controlled sit to stand movement and no LOB to improve transfers by the end of 16 treatments. LTG Duration 16 treatments 1 Chcf Goal (LTG) Pt will perform BIG exercises, daily functional tasks and walking with superv from to improve amplitude of movement, gait and balance by end of 16 treatments. LTG Duration 16 treatments Assessment Summary Assessment Pt is a 76 y/o male presenting with PD symptoms since 2003. He presents with soft speech, poor body awareness, impulsitivity, dysmetric movement left greater than right LE and UE with coordination testing, decreased control of movement with sit to stands and gait and impaired cognition today. He has the most difficulty with tapping left foot over the right foot, tends to quickly move to standing for sit to stands and almost falls backwards after first rep, requiring cues and moving from chair to plinth, and can perform 8 reps in 30 sec today . His gait with cane is very poor. Overall, his self- awareness with movement is very poor. He is at increased risk for falls. Cognitive impairment may be a barrier to PT. He will benefit from LSVT BIG therapy to improve movement, gait and balance. Physical Therapy Plan Frequency and Duration Frequency of Treatment 4x/Week Duration of Treatment 16 treatments Plan of Care Start Date 08/14/21 Plan of Care End Date 09/13/21 Therapeutic Interventions Therapeutic Interventions Balance Training,Canalithic Repositioning,Coordination Training,Gait Training,Home Exercise Program,Neuromuscular Re-education,Patient/ Caregiver Education,Self-Care/ Home Management,Soft Tissue Mobilization,Therapeutic Activities,Therapeutic Exercises Modalities Cold Pack/Ice Massage,Hot Packs Next Visit Focus/Plan Next Note Type Treatment Note Next Visit Plan Initiate BIG exercises and review functional task handout
--- NOTE | 2021-08-15 15:18 | PT.OTN ---
Current Diagnoses Parkinson's disease (08/15/21) Physical Therapy Treatment Note PT-OP-A Visit Information Start: 08/11/21 15:40 Freq: Status: Active Protocol: Document 08/15/21 14:01 MB (Rec: 08/15/21 15:02 MB [id number]) Out-Patient Physical Therapy Visit Information Visit Information Visit Type Treatment Note Visit Note Medicare, Cigna / before KX Visit Start Time 14:01 Visit Stop Time 15:00 Total Visit Minutes 59 Visit Number 2 Evaluation Information Evaluation Date 08/14/21 PT-OP-B Current Condition Start: 08/11/21 15:40 Freq: Status: Active Protocol: Document 08/14/21 14:00 MB (Rec: 08/14/21 14:41 MB [id number]) Current Condition History of Current Condition Onset Date 2003 Current Complaints Imbalance History of Current Condition Pt has some trouble with swallowing including rice and apple peels. Pt's speech is very soft. Pt likes tomatoes. His dad had a grocery store in [employer]. Pt reports that his PD symptoms started in 2003. His right thumb started trembling. 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 He had chemo treatment. He had three deep brain stimulator surgeries. He has several probes and perhaps some may not be working. He has the battery at left [facility]. It takes 30 minutes to charge everyday. He charges it at 3-4 p.m. everday. He cannot have any MRIs d/t the stimulator. Pt's neurologist, Dr. Susan Lawrence, adjusts his stimulator. Pt states that the stimulator has allowed him to take less Carbidopa Levodopa. He and dislike his soft speech. Pt reports that his tremor starts in his face and then moves in his body. He then feels it in his thumb. His mood changes some. He takes naps during the day. He gets up at different times in the morning. He is taking his medicine 1 hour before bed and the pills last 4-5 hours. He tries to take his first dose of Carbidopa Levodopa within an hour of waking up and then every 4 hours (per ). He occ takes Tylenol when he feels fog and headache starts coming on so he can defer when he has to take the Carbidopa Levodopa. He feels pounding and shaking occ in his head. The PD medication helps with tremor, shaking and brain fog. 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 Pt lives with his and there is one step in the garage to come into the house. He drives every now and then. He drives if his is afraid like in the city of [place]. Pt has a cane and a walker. He made it into a stand-up walker. He uses this when he walks the dog. Pt has a small dog named Rober. Pt had 1 fall in the last three months. He would like to get back to driving his car and pulling RV with diesel truck and feeling like he should be doing that. Pt reports imbalance with walking on an incline and uneven surfaces like the yard. His biggest PD related problems are brain fog, speaking softly, urinary urgency, headaches, walking. Pt has a history of prostate CA. He had radiation. He is getting up at night-time to go to the bathroom, up to 3x/ night. Pt is a and was in [place]. He may have been exposed to agent orange from [employer] equipment. [facility] as his exposure has not been recognized. Treatment Goals Patient/Caregiver Goals Improved balance and ability to get from point A to point B with control without running into objects or having to land to prevent fall. PT-OP-C Subjective Start: 08/11/21 15:40 Freq: Status: Active Protocol: Document 08/15/21 14:01 MB (Rec: 08/15/21 15:02 MB [id number]) OP-PT Subjective Patient Comments Patient Comments Pt states that some of the things on the functional task list don't need to be there. explains that he is doing thinks like taking a bath and dressing. PT-OP-G Mobility & Gait Start: 08/11/21 15:40 Freq: Status: Active Protocol: Document 08/14/21 14:00 MB (Rec: 08/14/21 15:38 MB [id number]) OP Gait Assessment Comments Gait Comments Pt carries straight cane with wide base in right hand. He does not advance it with his left foot and tends to put it down at parts of gait where he loses his balance: when distracted, he keeps it behind him and then he loses his balance backwards and is able to self-correct. Overall, his gait is better without AD. PT-OP-M Strength Start: 08/11/21 15:40 Freq: Status: Active Protocol: Document 08/14/21 14:00 MB (Rec: 08/14/21 15:38 MB [id number]) Shoulder Strength Shoulder Manual Muscle Testing Bilateral Flexion 5 Normal Abduction (C5) 5 Normal Comments Limited end-range full shoulder flexion B, greater on the left and pt and report old left shoulder injury. Decreased left elbow extension as well. Elbow/Forearm Strength Elbow and Forearm Manual Muscle Testing Bilateral Flexion (C6) 5 Normal Extension (C7) 5 Normal Hip Strength Hip Manual Muscle Testing Bilateral Flexion (L2) 4 Good Knee Strength Knee Manual Muscle Testing Bilateral Flexion (S2) 5 Normal Extension (L3) 5 Normal Ankle/Foot Strength Ankle and Foot Manual Muscle Testing Bilateral Dorsiflexion (L4) 5 Normal Toe Strength Toe Manual Muscle Testing Left Great Toe Extension 4 Good Right Great Toe Extension 4 Good PT-OP-Q Treatments Start: 08/11/21 15:40 Freq: Status: Active Protocol: Document 08/15/21 14:01 MB (Rec: 08/15/21 15:17 MB [id number]) Therapeutic Exercises Sitting Exercises Forward step Side bilateral Equipment Used Black mat in gym, 2 lb weights around ankles Reps/Minutes 10 Comments Multiple trials breaking up movement, pt tends to snap elbows to sides BIG sit to stand Equipment Used Black mat in gym, 2 lb weights around ankles Reps/Minutes 10 Comments Multiple trials and cues for UEs Side to side Side bilateral Equipment Used Black mat in gym, 2 lb weights around ankles Comments Multiple trials with breaking up the movement and pt cannot safely perform Floor to ceiling Side bilateral Equipment Used Black mat in gym, 2 lb weights around ankles Reps/Minutes 7 Comments Broke up UE and LE movement, 2 lb ankle weights to help LLE stay down PT-OP-T Assessment and Plan Start: 08/11/21 15:40 Freq: Status: Active Protocol: Document 08/15/21 14:01 MB (Rec: 08/15/21 15:02 MB [id number]) Physical Therapy Assessment Rehab Potential Rehabilitation Potential Fair Evaluation Complexity Number of Personal Factors/Comorbidities 3 or More Number of Body Systems Impaired 3 Clinical Presentation at Evaluation Evolving Impairments Impairments Activity Tolerance,Balance, Coordination,Functional Activities,Functional Mobility ,Gait,Pain,Posture,ROM, Strength,Transfers Other Impairments Personal factors include soft speech, cognitive changes, pt is not on a consistent sleeping or medication schedule. Body systems affected include cognitive, musculoskeletal and neurological. His clinical presentation is evolving. Other Concerns Fall Risk Yes Goals 3 Autism Specialist Goal (LTG) Pt will gait train at least 1300 feet without AD in 6 minutes to improve community ambulation by the end of 16 treatments. LTG Duration 16 treatments 2 Senior Care Goal (LTG) Pt will perform 10 reps sit to stand without UE support in 30 sec with controlled sit to stand movement and no LOB to improve transfers by the end of 16 treatments. LTG Duration 16 treatments 1 Senior Care Goal (LTG) Pt will perform BIG exercises, daily functional tasks and walking with superv from to improve amplitude of movement, gait and balance by end of 16 treatments. LTG Duration 16 treatments Assessment Summary Assessment PT, and pt review what functional tasks they would like for pt to work on. Will add the following functional tasks to BIG therapy: carrying groceries/boxes/bags, walking straight, walking with carrying objects, writing, taking laundry in and out of the dryer, picking up grandchildren (4, 5 y/o and 18 month old). BIG exercises are very challenging today. Pt presents with chorea-like dyskinesia with LLE moving out in front of him many times with sitting exercises. Opted for sitting exercises d/t safety concerns with dysmetric movement that occ presents as left leg lifting into the air and LOB. His left arm also spontaneously extends and rotates in standing. Extensive break down of exercises into LE and UE, cues to keep feet down and 2lb weight on ankles for exercises today. PT only feels comfortable giving 3 seated exercises for home exercise and pt to perform with and use of handouts. May consider giving adapted DVD to pt and next treatment date. This BIG course may focus more on functional activity and gait if exercises con't to be so difficult. Physical Therapy Plan Frequency and Duration Frequency of Treatment 4x/Week Duration of Treatment 16 treatments Plan of Care Start Date 08/14/21 Plan of Care End Date 09/13/21 Therapeutic Interventions Therapeutic Interventions Balance Training,Canalithic Repositioning,Coordination Training,Gait Training,Home Exercise Program,Neuromuscular Re-education,Patient/ Caregiver Education,Self-Care/ Home Management,Soft Tissue Mobilization,Therapeutic Activities,Therapeutic Exercises Modalities Cold Pack/Ice Massage,Hot Packs Next Visit Focus/Plan Next Note Type Treatment Note Next Visit Plan Try to try all the other sitting BIG exercises--side to side was not successful previously d/t left greater than right leg dysmetria/ chorea-like dyskinesia. 2 lb ankle weights on ankles, considering giving adapted DVD if appropriately through all exercises. This BIG course may focus more on functional activity and gait if exercises con't to be so difficult.
--- NOTE | 2021-08-16 17:36 | PT.OTN ---
Current Diagnoses Parkinson's disease (08/16/21) Physical Therapy Treatment Note PT-OP-A Visit Information Start: 08/11/21 15:40 Freq: Status: Active Protocol: Document 08/16/21 17:16 AW (Rec: 08/16/21 17:36 AW [email or web address]) Out-Patient Physical Therapy Visit Information Visit Information Visit Type Treatment Note Visit Note Medicare, Cigna 02/10 before KX Visit Start Time 14:15 Visit Stop Time 15:15 Total Visit Minutes 60 Visit Number 3 Number of WORKERS' COMPENSATION CLAIMS EXAMINER Visits 0 Evaluation Information Evaluation Date 08/14/21 PT-OP-B Current Condition Start: 08/11/21 15:40 Freq: Status: Active Protocol: Document 08/14/21 14:00 MB (Rec: 08/14/21 14:41 MB [id number]) Current Condition History of Current Condition Onset Date 2003 Current Complaints Imbalance History of Current Condition Pt has some trouble with swallowing including rice and apple peels. Pt's speech is very soft. Pt likes tomatoes. His dad had a grocery store in [employer]. Pt reports that his PD symptoms started in 2003. His right thumb started trembling. 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 He had chemo treatment. He had three deep brain stimulator surgeries. He has several probes and perhaps some may not be working. He has the battery at [facility]. It takes 30 minutes to charge everyday. He charges it at 3-4 p.m. everday. He cannot have any MRIs d/t the stimulator. Pt's neurologist, Dr. Susan Lawrence, adjusts his stimulator. Pt states that the stimulator has allowed him to take less Carbidopa Levodopa. He and dislike his soft speech. Pt reports that his tremor starts in his face and then moves in his body. He then feels it in his thumb. His mood changes some. He takes naps during the day. He gets up at different times in the morning. He is taking his medicine 1 hour before bed and the pills last 4-5 hours. He tries to take his first dose of Carbidopa Levodopa within an hour of waking up and then every 4 hours (per ). He occ takes Tylenol when he feels fog and headache starts coming on so he can defer when he has to take the Carbidopa Levodopa. He feels pounding and shaking occ in his head. The PD medication helps with tremor, shaking and brain fog. 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 Pt lives with his and there is one step in the garage to come into the house. He drives every now and then. He drives if his is afraid like in the city of [place]. Pt has a cane and a walker. He made it into a stand-up walker. He uses this when he walks the dog. Pt has a small dog named Rober. Pt had 1 fall in the last three months. He would like to get back to driving his car and pulling RV with diesel truck and feeling like he should be doing that. Pt reports imbalance with walking on an incline and uneven surfaces like the yard. His biggest PD related problems are brain fog, speaking softly, urinary urgency, headaches, walking. Pt has a history of prostate CA. He had radiation. He is getting up at night-time to go to the bathroom, up to 3x/ night. Pt is a and was in [place]. He may have been exposed to agent orange from [employer] equipment. [facility] as his exposure has not been recognized. Treatment Goals Patient/Caregiver Goals Improved balance and ability to get from point A to point B with control without running into objects or having to land to prevent fall. PT-OP-C Subjective Start: 08/11/21 15:40 Freq: Status: Active Protocol: Document 08/16/21 17:16 AW (Rec: 08/16/21 17:36 AW [email or web address]) OP-PT Subjective Patient Comments Patient Comments Pt reports he did assigned exercises at home but struggled to control left leg. PT-OP-G Mobility & Gait Start: 08/11/21 15:40 Freq: Status: Active Protocol: Document 08/14/21 14:00 MB (Rec: 08/14/21 15:38 MB [id number]) OP Gait Assessment Comments Gait Comments Pt carries straight cane with wide base in right hand. He does not advance it with his left foot and tends to put it down at parts of gait where he loses his balance: when distracted, he keeps it behind him and then he loses his balance backwards and is able to self-correct. Overall, his gait is better without AD. PT-OP-M Strength Start: 08/11/21 15:40 Freq: Status: Active Protocol: Document 08/14/21 14:00 MB (Rec: 08/14/21 15:38 MB [id number]) Shoulder Strength Shoulder Manual Muscle Testing Bilateral Flexion 5 Normal Abduction (C5) 5 Normal Comments Limited end-range full shoulder flexion B, greater on the left and pt and report old left shoulder injury. Decreased left elbow extension as well. Elbow/Forearm Strength Elbow and Forearm Manual Muscle Testing Bilateral Flexion (C6) 5 Normal Extension (C7) 5 Normal Hip Strength Hip Manual Muscle Testing Bilateral Flexion (L2) 4 Good Knee Strength Knee Manual Muscle Testing Bilateral Flexion (S2) 5 Normal Extension (L3) 5 Normal Ankle/Foot Strength Ankle and Foot Manual Muscle Testing Bilateral Dorsiflexion (L4) 5 Normal Toe Strength Toe Manual Muscle Testing Left Great Toe Extension 4 Good Right Great Toe Extension 4 Good PT-OP-Q Treatments Start: 08/11/21 15:40 Freq: Status: Active Protocol: Document 08/16/21 17:16 AW (Rec: 08/16/21 17:36 AW [email or web address]) Therapeutic Exercises Sitting Exercises fwd rock and reach Sitting Exercise Name fwd rock and reach Comments attempted but pt unable to work in seated split stance sideways step and reach Sitting Exercise Name sideways step and reach Side bilateral Equipment Used black mat in gym, 4# ankle wts Reps/Minutes 10 Comments cued big hands and more rotation Forward step Side bilateral Equipment Used Black mat in gym, 4 lb weights around ankles Reps/Minutes 10 Comments cued pt to pull feet closer to mat and to plant feet firmly BIG sit to stand Equipment Used Black mat in gym, 2 lb weights around ankles Reps/Minutes 10 Comments cues for forward weight shift ascend and descent Side to side Comments not performed today Floor to ceiling Side bilateral Equipment Used Black mat in gym, 4 lb weights around ankles Reps/Minutes 10 Comments cued pt for foot position and to plant feet firmly Gait Training Gait Activity BIG walking Description BIG walking Device Used no AD Level of Assistance SBA Surface carpet, tile Distance/Duration 100' x 6 Treatment Focus amplitude Comments Cued pt to think BIG during gait. Pt responded with excessively long steps. Reviewed stepping exercises and emphasized hip flexion and asked pt to think of producing similar movement in gait. Pt does stumble when LUE drifts behind and rotates but does not require assist to recover. Self-Care/Home Management Treatment Education Patient Education Home Exercise Program Other Education Added seated side step to HEP and pt's will help him. Did not issue DVD as PT felt pt would attempt to do more than safe. PT-OP-T Assessment and Plan Start: 08/11/21 15:40 Freq: Status: Active Protocol: Document 08/16/21 17:16 AW (Rec: 08/16/21 17:36 AW [email or web address]) Physical Therapy Assessment Rehab Potential Rehabilitation Potential Fair Evaluation Complexity Number of Personal Factors/Comorbidities 3 or More Number of Body Systems Impaired 3 Clinical Presentation at Evaluation Evolving Impairments Impairments Activity Tolerance,Balance, Coordination,Functional Activities,Functional Mobility ,Gait,Pain,Posture,ROM, Strength,Transfers Other Impairments Personal factors include soft speech, cognitive changes, pt is not on a consistent sleeping or medication schedule. Body systems affected include cognitive, musculoskeletal and neurological. His clinical presentation is evolving. Other Concerns Fall Risk Yes Goals 3 Residential Goal (LTG) Pt will gait train at least 1300 feet without AD in 6 minutes to improve community ambulation by the end of 16 treatments. LTG Duration 16 treatments 2 Food Photographer Goal (LTG) Pt will perform 10 reps sit to stand without UE support in 30 sec with controlled sit to stand movement and no LOB to improve transfers by the end of 16 treatments. LTG Duration 16 treatments 1 Residential Goal (LTG) Pt will perform BIG exercises, daily functional tasks and walking with superv from to improve amplitude of movement, gait and balance by end of 16 treatments. LTG Duration 16 treatments Assessment Summary Assessment In seated exercises, pt responds well to cues to pull feet backup administrative coordinator to chair and to plant feet firmly on the gound. Pt requested increase in ankle weight which PT did accommodate but educated pt that external cues would not be used long-term. Pt has difficulty coordinating movement in exercises and presents with ataxia and poor trunk control in unsupported sitting which leads to posterior LOB in sitting x 2 during today's session. Pt was able to recover without assist both times and improved performance after cues to firmly plant feet on the ground. Pt is stimulable and able to produce larger amplitude movement in response to cues but may be limited due to incoordination and dystonia which produces excessive left hip external rotation and left ankle inversion. Physical Therapy Plan Frequency and Duration Frequency of Treatment 4x/Week Duration of Treatment 16 treatments Plan of Care Start Date 08/14/21 Plan of Care End Date 09/13/21 Therapeutic Interventions Therapeutic Interventions Balance Training,Canalithic Repositioning,Coordination Training,Gait Training,Home Exercise Program,Neuromuscular Re-education,Patient/ Caregiver Education,Self-Care/ Home Management,Soft Tissue Mobilization,Therapeutic Activities,Therapeutic Exercises Modalities Cold Pack/Ice Massage,Hot Packs Next Visit Focus/Plan Next Note Type Treatment Note Next Visit Plan Continue exercise instruction and gait training. Begin functional task training.
--- NOTE | 2021-08-17 15:42 | PT.OTN ---
Current Diagnoses Parkinson's disease (08/17/21) Physical Therapy Treatment Note PT-OP-A Visit Information Start: 08/11/21 15:40 Freq: Status: Active Protocol: Document 08/17/21 14:17 MB (Rec: 08/17/21 15:42 MB [id number]) Out-Patient Physical Therapy Visit Information Visit Information Visit Type Treatment Note Visit Note Medicare, Cigna 03/13 before KX Visit Start Time 14:17 Visit Stop Time 15:17 Total Visit Minutes 60 Visit Number 4 Number of NAVAL ENGINEER Visits 0 Evaluation Information Evaluation Date 08/14/21 PT-OP-B Current Condition Start: 08/11/21 15:40 Freq: Status: Active Protocol: Document 08/14/21 14:00 MB (Rec: 08/14/21 14:41 MB [id number]) Current Condition History of Current Condition Onset Date 2003 Current Complaints Imbalance History of Current Condition Pt has some trouble with swallowing including rice and apple peels. Pt's speech is very soft. Pt likes tomatoes. His dad had a grocery store in [place]. Pt reports that his PD symptoms started in 2003. His right thumb started trembling. 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 He had chemo treatment. He had three deep brain stimulator surgeries. He has several probes and perhaps some may not be working. He has the battery at [facility]. It takes 30 minutes to charge everyday. He charges it at 3-4 p.m. everday. He cannot have any MRIs d/t the stimulator. Pt's neurologist, Dr. Susan Lawrence, adjusts his stimulator. Pt states that the stimulator has allowed him to take less Carbidopa Levodopa. He and dislike his soft speech. Pt reports that his tremor starts in his face and then moves in his body. He then feels it in his thumb. His mood changes some. He takes naps during the day. He gets up at different times in the morning. He is taking his medicine 1 hour before bed and the pills last 4-5 hours. He tries to take his first dose of Carbidopa Levodopa within an hour of waking up and then every 4 hours (per ). He occ takes Tylenol when he feels fog and headache starts coming on so he can defer when he has to take the Carbidopa Levodopa. He feels pounding and shaking occ in his head. The PD medication helps with tremor, shaking and brain fog. 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 Pt lives with his and there is one step in the garage to come into the house. He drives every now and then. He drives if his is afraid like in the city of [place]. Pt has a cane and a walker. He made it into a stand-up walker. He uses this when he walks the dog. Pt has a small dog named Rober. Pt had 1 fall in the last three months. He would like to get back to driving his car and pulling RV with diesel truck and feeling like he should be doing that. Pt reports imbalance with walking on an incline and uneven surfaces like the yard. His biggest PD related problems are brain fog, speaking softly, urinary urgency, headaches, walking. Pt has a history of prostate CA. He had radiation. He is getting up at night-time to go to the bathroom, up to 3x/ night. Pt is a and was in [place]. He may have been exposed to agent orange from [employer] equipment. [facility] as his exposure has not been recognized. Treatment Goals Patient/Caregiver Goals Improved balance and ability to get from point A to point B with control without running into objects or having to land to prevent fall. PT-OP-C Subjective Start: 08/11/21 15:40 Freq: Status: Active Protocol: Document 08/17/21 14:17 MB (Rec: 08/17/21 15:42 MB [id number]) OP-PT Subjective Patient Comments Patient Comments reports that pt had a fall out of the bed this morning. Pt states that he hit his legs and is not hurting. heard pt from upstairs. He had gone down to a downstairs bed. reports that railing on steps pulled off when she had a fall and it is not very strong. PT-OP-G Mobility & Gait Start: 08/11/21 15:40 Freq: Status: Active Protocol: Document 08/14/21 14:00 MB (Rec: 08/14/21 15:38 MB [id number]) OP Gait Assessment Comments Gait Comments Pt carries straight cane with wide base in right hand. He does not advance it with his left foot and tends to put it down at parts of gait where he loses his balance: when distracted, he keeps it behind him and then he loses his balance backwards and is able to self-correct. Overall, his gait is better without AD. PT-OP-M Strength Start: 08/11/21 15:40 Freq: Status: Active Protocol: Document 08/14/21 14:00 MB (Rec: 08/14/21 15:38 MB [id number]) Shoulder Strength Shoulder Manual Muscle Testing Bilateral Flexion 5 Normal Abduction (C5) 5 Normal Comments Limited end-range full shoulder flexion B, greater on the left and pt and report old left shoulder injury. Decreased left elbow extension as well. Elbow/Forearm Strength Elbow and Forearm Manual Muscle Testing Bilateral Flexion (C6) 5 Normal Extension (C7) 5 Normal Hip Strength Hip Manual Muscle Testing Bilateral Flexion (L2) 4 Good Knee Strength Knee Manual Muscle Testing Bilateral Flexion (S2) 5 Normal Extension (L3) 5 Normal Ankle/Foot Strength Ankle and Foot Manual Muscle Testing Bilateral Dorsiflexion (L4) 5 Normal Toe Strength Toe Manual Muscle Testing Left Great Toe Extension 4 Good Right Great Toe Extension 4 Good PT-OP-Q Treatments Start: 08/11/21 15:40 Freq: Status: Active Protocol: Document 08/17/21 14:17 MB (Rec: 08/17/21 15:42 MB [id number]) Therapeutic Exercises Sitting Exercises sideways step and reach Side bilateral Equipment Used Black mat in gym, 4 lb ankle weights Comments 5 reps to the right, 5 to the left, cues and demo, left foot comes up Forward step Side bilateral Equipment Used Black mat in gym, 4 lb ankle weights Reps/Minutes 5 Comments one leg and then the other. left foot tends to come up BIG sit to stand Equipment Used Black mat in gym, 4 lb ankle weights Reps/Minutes 10 reps Comments Cues to move more fluidly, arms and legs together Floor to ceiling Equipment Used Black mat in gym, 4 lb ankle weights Reps/Minutes 7 Comments Improvement today, onging cues , pt closes eyes when counting Therapeutic Activity Therapeutic Activity Carrying box Comments This improves gait quality today when held with both hands--shorter and more equal steps and mandi Taking laundry out of the dryer Comments Attempted front gun perforator loader but pt' s dryer is not a front gun perforator loader. Attempted dirty linen cart sideways on mat but also not like pt's dryer at home Gait Training Gait Activity BIG walking Level of Assistance SBA Surface carpet, tile Distance/Duration 10' Treatment Focus Safety and not allowing left arm to lag behind, carrying object Comments Gait is slow and starts with very large left step with high leg and monster step and his left arm moves into informal waiter/waitress's tip position with extension. It takes several steps for gait to improve, grossly 50'. Attempted carrying flat wooden step (1 edge) in left hand which helped left arm lower to begin with and then step slowly extending back with left arm. Holding step with both hands improves steps to be more even and less long and this improves overall gait pattern. Pt's turns are quick to 180 deg. Self-Care/Home Management Treatment Education Other Education Ed pt and to perform 5 reps of his four approved BIG sitting exercises BID on non- therapy days and in the morning on therapy days. Ed them to ask doctor or pharmacist about Carbidopa Levodopa instructions (how many times a day and how far apart) to take medication, to get on a schedule with it, to consider a consistent bed time and wake time to help facilitate sleeping and medication routine. Ed pt and that pt should not be pulling laundry hamper down the steps and to consider getting a more secure railing. Ed that PT will not focus on functional tasks that he is not doing at home. PT-OP-T Assessment and Plan Start: 08/11/21 15:40 Freq: Status: Active Protocol: Document 08/17/21 14:17 MB (Rec: 08/17/21 15:42 MB [id number]) Physical Therapy Assessment Rehab Potential Rehabilitation Potential Fair Evaluation Complexity Number of Personal Factors/Comorbidities 3 or More Number of Body Systems Impaired 3 Clinical Presentation at Evaluation Evolving Impairments Impairments Activity Tolerance,Balance, Coordination,Functional Activities,Functional Mobility ,Gait,Pain,Posture,ROM, Strength,Transfers Other Impairments Personal factors include soft speech, cognitive changes, pt is not on a consistent sleeping or medication schedule. Body systems affected include cognitive, musculoskeletal and neurological. His clinical presentation is evolving. Other Concerns Fall Risk Yes Goals 3 Correction Goal (LTG) Pt will gait train at least 1300 feet without AD in 6 minutes to improve community ambulation by the end of 16 treatments. LTG Duration 16 treatments 2 Gas Station Clerk Goal (LTG) Pt will perform 10 reps sit to stand without UE support in 30 sec with controlled sit to stand movement and no LOB to improve transfers by the end of 16 treatments. LTG Duration 16 treatments 1 Correction Goal (LTG) Pt will perform BIG exercises, daily functional tasks and walking with superv from to improve amplitude of movement, gait and balance by end of 16 treatments. LTG Duration 16 treatments Assessment Summary Assessment Pt con't to present with spinocerebellar ataxia with left UE moving into informal waiter/waitress's tip position and left LE with left hip and knee flexion, hip ER and foot supination. 4 lb ankle weights and less cues to correct keeping left foot down for sitting exercises today. So, overall improvement with exercises. His concentrated movements for exercises are not fluid and he tends to move joint by joint and without the UEs and LEs together. Initial gait is slow with large left step with leg high and left arm moving into informal waiter/waitress's tip position. He cannot increase mandi with gait training. Carrying wooden box with both hands does improve shortening steps and left UE ataxia and position. Pt and cannot communicate a useful way for pt to help with laundry when starting to practice this activity and so may stop this task. Ed pt and to con't 4 BIG exercises 2x/day x5 reps on non-therapy days. Con't BIG efforts. Physical Therapy Plan Frequency and Duration Frequency of Treatment 4x/Week Duration of Treatment 16 treatments Plan of Care Start Date 08/14/21 Plan of Care End Date 09/13/21 Therapeutic Interventions Therapeutic Interventions Balance Training,Canalithic Repositioning,Coordination Training,Gait Training,Home Exercise Program,Neuromuscular Re-education,Patient/ Caregiver Education,Self-Care/ Home Management,Soft Tissue Mobilization,Therapeutic Activities,Therapeutic Exercises Modalities Cold Pack/Ice Massage,Hot Packs Next Visit Focus/Plan Next Note Type Treatment Note Next Visit Plan Practice passing a baby and moving boxes in and out of the trunk
--- NOTE | 2021-08-21 15:40 | PT.OTN ---
Current Diagnoses Parkinson's disease (08/21/21) Physical Therapy Treatment Note PT-OP-A Visit Information Start: 08/11/21 15:40 Freq: Status: Active Protocol: Document 08/21/21 14:15 MB (Rec: 08/21/21 15:40 MB [id number]) Out-Patient Physical Therapy Visit Information Visit Information Visit Type Treatment Note Visit Note Medicare, [employer] 04/12 before KX Visit Start Time 14:15 Visit Stop Time 15:14 Total Visit Minutes 59 Visit Number 5 Number of LACE FINISHER Visits 0 Evaluation Information Evaluation Date 08/14/21 PT-OP-B Current Condition Start: 08/11/21 15:40 Freq: Status: Active Protocol: Document 08/14/21 14:00 MB (Rec: 08/14/21 14:41 MB [id number]) Current Condition History of Current Condition Onset Date 2003 Current Complaints Imbalance History of Current Condition Pt has some trouble with swallowing including rice and apple peels. Pt's speech is very soft. Pt likes tomatoes. His dad had a grocery store in [place]. Pt reports that his PD symptoms started in 2003. His right thumb started trembling. 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 He had chemo treatment. He had three deep brain stimulator surgeries. He has several probes and perhaps some may not be working. He has the battery at left [facility] area. It takes 30 minutes to charge everyday. He charges it at 3-4 p.m. everday. He cannot have any MRIs d/t the stimulator. Pt's neurologist, Dr. Susan Lawrence, adjusts his stimulator. Pt states that the stimulator has allowed him to take less Carbidopa Levodopa. He and dislike his soft speech. Pt reports that his tremor starts in his face and then moves in his body. He then feels it in his thumb. His mood changes some. He takes naps during the day. He gets up at different times in the morning. He is taking his medicine 1 hour before bed and the pills last 4-5 hours. He tries to take his first dose of Carbidopa Levodopa within an hour of waking up and then every 4 hours (per ). He occ takes Tylenol when he feels fog and headache starts coming on so he can defer when he has to take the Carbidopa Levodopa. He feels pounding and shaking occ in his head. The PD medication helps with tremor, shaking and brain fog. 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 Pt lives with his and there is one step in the garage to come into the house. He drives every now and then. He drives if his is afraid like in the city of [place]. Pt has a cane and a walker. He made it into a stand-up walker. He uses this when he walks the dog. Pt has a small dog named Rober. Pt had 1 fall in the last three months. He would like to get back to driving his car and pulling RV with diesel truck and feeling like he should be doing that. Pt reports imbalance with walking on an incline and uneven surfaces like the yard. His biggest PD related problems are brain fog, speaking softly, urinary urgency, headaches, walking. Pt has a history of prostate CA. He had radiation. He is getting up at night-time to go to the bathroom, up to 3x/ night. Pt is a and was in [place]. He may have been exposed to agent orange from [employer]. [facility] as his exposure has not been recognized. Treatment Goals Patient/Caregiver Goals Improved balance and ability to get from point A to point B with control without running into objects or having to land to prevent fall. PT-OP-C Subjective Start: 08/11/21 15:40 Freq: Status: Active Protocol: Document 08/21/21 14:15 MB (Rec: 08/21/21 15:40 MB [id number]) OP-PT Subjective Patient Comments Patient Comments and pt state that pt has had left knee pain over the weekend. They think that exercising with the 4 lb ankle weights might have been a problem. He has an old left knee injury from the past for which he thought he was going to have to have surgery. He points to his medial joint line. He cannot rate pain. He wears a patch taped to anterior knee and knee brace today. He is willing to try KT for less restrictive support d/t knee brace preventing knee extension. PT-OP-G Mobility & Gait Start: 08/11/21 15:40 Freq: Status: Active Protocol: Document 08/14/21 14:00 MB (Rec: 08/14/21 15:38 MB [id number]) OP Gait Assessment Comments Gait Comments Pt carries straight cane with wide base in right hand. He does not advance it with his left foot and tends to put it down at parts of gait where he loses his balance: when distracted, he keeps it behind him and then he loses his balance backwards and is able to self-correct. Overall, his gait is better without AD. PT-OP-M Strength Start: 08/11/21 15:40 Freq: Status: Active Protocol: Document 08/14/21 14:00 MB (Rec: 08/14/21 15:38 MB [id number]) Shoulder Strength Shoulder Manual Muscle Testing Bilateral Flexion 5 Normal Abduction (C5) 5 Normal Comments Limited end-range full shoulder flexion B, greater on the left and pt and report old left shoulder injury. Decreased left elbow extension as well. Elbow/Forearm Strength Elbow and Forearm Manual Muscle Testing Bilateral Flexion (C6) 5 Normal Extension (C7) 5 Normal Hip Strength Hip Manual Muscle Testing Bilateral Flexion (L2) 4 Good Knee Strength Knee Manual Muscle Testing Bilateral Flexion (S2) 5 Normal Extension (L3) 5 Normal Ankle/Foot Strength Ankle and Foot Manual Muscle Testing Bilateral Dorsiflexion (L4) 5 Normal Toe Strength Toe Manual Muscle Testing Left Great Toe Extension 4 Good Right Great Toe Extension 4 Good PT-OP-Q Treatments Start: 08/11/21 15:40 Freq: Status: Active Protocol: Document 08/21/21 14:15 MB (Rec: 08/21/21 15:40 MB [id number]) Therapeutic Exercises Sitting Exercises sideways step and reach Side bilateral Equipment Used Black mat in gym, no weights Comments 10 reps to each side. Exagerated leg movements for side step Forward step Side bilateral Equipment Used Black mat in gym, no weights Comments 10 reps each side, cues to pull feet back underneath him BIG sit to stand Equipment Used Black mat in gym, no weights Reps/Minutes 11 reps Comments Disconnected movements with arms, slow, trouble standing a couple of reps Floor to ceiling Equipment Used Black mat and no weights Reps/Minutes 6 reps Comments 1 episode LOB posterior and feet off floor, self-corrected , counts after PT Therapeutic Activity Therapeutic Activity BIG writing Reps/Minutes 8' Comments Sheet vertical and pt writing name across the page--ball point ink and then dry erase marker. He tends to press hard and his letters get smaller. Cues to keep moving hand along the page and not to press so hard. Some better name writing Carrying box Reps/Minutes 15' Comments Lifting car container, larger box and smaller box in and out of car trunk: cues for bending at knees, holding object to chest, scanning ahead to step over curb and off of curb. Pt tends to walk to curb and tap with toes for safety before stepping up onto it. SBA and pt does not have awareness of traffic in parking lot and PT must stop pt and cue him often-- decreased safety awareness and trouble multi-tasking Gait Training Gait Activity BIG walking Level of Assistance SBA Surface carpet, tile Distance/Duration 15' Treatment Focus BIG left toes, heel strike, drop left arm Comments Gait outside with box is antalgic with left knee brace on. Pt removes brace and PT provides taping for support and his gait improves. Gait clockwise is much more confident than anticlockwise, though anticlockwise gait is at end of treatment. He cannot increase mandi when asked and occ scuffs left foot and walks with it in foot drop- like position until cued for BIG toes and heel strike. When asked to increase arm swing, arms are exagerated and this is the overall appearance of pt concentrating to improve form with gait and exercises. Manual Therapy Treatment Other Other Manual Treatments L knee KT for support with c strip under patella and B I strips with one medial and one lateral knee PT-OP-T Assessment and Plan Start: 08/11/21 15:40 Freq: Status: Active Protocol: Document 08/21/21 14:15 MB (Rec: 08/21/21 15:40 MB [id number]) Physical Therapy Assessment Rehab Potential Rehabilitation Potential Fair Evaluation Complexity Number of Personal Factors/Comorbidities 3 or More Number of Body Systems Impaired 3 Clinical Presentation at Evaluation Evolving Impairments Impairments Activity Tolerance,Balance, Coordination,Functional Activities,Functional Mobility ,Gait,Pain,Posture,ROM, Strength,Transfers Other Impairments Personal factors include soft speech, cognitive changes, pt is not on a consistent sleeping or medication schedule. Body systems affected include cognitive, musculoskeletal and neurological. His clinical presentation is evolving. Other Concerns Fall Risk Yes Goals 3 [employer] Goal (LTG) Pt will gait train at least 1300 feet without AD in 6 minutes to improve community ambulation by the end of 16 treatments. LTG Duration 16 treatments 2 [employer] Goal (LTG) Pt will perform 10 reps sit to stand without UE support in 30 sec with controlled sit to stand movement and no LOB to improve transfers by the end of 16 treatments. LTG Duration 16 treatments 1 [employer] Goal (LTG) Pt will perform BIG exercises, daily functional tasks and walking with superv from to improve amplitude of movement, gait and balance by end of 16 treatments. LTG Duration 16 treatments Assessment Summary Assessment Pt performs exercises well today without ankle weights and his gait improves KT compared to knee brace and PT checks in with him frequently about pain. He does not report that pain increases with gait until last trial anticlockwise around the gym and in the hallway. When cued to let his left arm drop today , he can perform this immediately. Cued for BIG left toe and heel strike today. Con't gait. May consider trying some of the other BIG sitting exercises. Physical Therapy Plan Frequency and Duration Frequency of Treatment 4x/Week Duration of Treatment 16 treatments Plan of Care Start Date 08/14/21 Plan of Care End Date 09/13/21 Therapeutic Interventions Therapeutic Interventions Balance Training,Canalithic Repositioning,Coordination Training,Gait Training,Home Exercise Program,Neuromuscular Re-education,Patient/ Caregiver Education,Self-Care/ Home Management,Soft Tissue Mobilization,Therapeutic Activities,Therapeutic Exercises Modalities Cold Pack/Ice Massage,Hot Packs Next Visit Focus/Plan Next Note Type Treatment Note Next Visit Plan Consider trying some of the other sitting BIG exercises, anti-clockwise gait
--- NOTE | 2021-08-22 15:29 | PT.OTN ---
Current Diagnoses Parkinson's disease (08/22/21) Physical Therapy Treatment Note PT-OP-A Visit Information Start: 08/11/21 15:40 Freq: Status: Active Protocol: Document 08/22/21 14:15 MB (Rec: 08/22/21 15:29 MB [id number]) Out-Patient Physical Therapy Visit Information Visit Information Visit Type Treatment Note Visit Note Medicare, [employer]igna 05/13 before KX Visit Start Time 14:15 Visit Stop Time 15:11 Total Visit Minutes 56 Visit Number 6 Number of TEST AND BALANCE ENGINEER Visits 0 Evaluation Information Evaluation Date 08/14/21 PT-OP-B Current Condition Start: 08/11/21 15:40 Freq: Status: Active Protocol: Document 08/14/21 14:00 MB (Rec: 08/14/21 14:41 MB [id number]) Current Condition History of Current Condition Onset Date 2003 Current Complaints Imbalance History of Current Condition Pt has some trouble with swallowing including rice and apple peels. Pt's speech is very soft. Pt likes tomatoes. His dad had a grocery store in [place]. Pt reports that his PD symptoms started in 2003. His right thumb started trembling. 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 He had chemo treatment. He had three deep brain stimulator surgeries. He has several probes and perhaps some may not be working. He has the battery at left [facility] area. It takes 30 minutes to charge everyday. He charges it at 3-4 p.m. everday. He cannot have any MRIs d/t the stimulator. Pt's neurologist, Dr. Susan Lawrence, adjusts his stimulator. Pt states that the stimulator has allowed him to take less Carbidopa Levodopa. He and dislike his soft speech. Pt reports that his tremor starts in his face and then moves in his body. He then feels it in his thumb. His mood changes some. He takes naps during the day. He gets up at different times in the morning. He is taking his medicine 1 hour before bed and the pills last 4-5 hours. He tries to take his first dose of Carbidopa Levodopa within an hour of waking up and then every 4 hours (per ). He occ takes Tylenol when he feels fog and headache starts coming on so he can defer when he has to take the Carbidopa Levodopa. He feels pounding and shaking occ in his head. The PD medication helps with tremor, shaking and brain fog. 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 Pt lives with his and there is one step in the garage to come into the house. He drives every now and then. He drives if his is afraid like in the city of [place]. Pt has a cane and a walker. He made it into a stand-up walker. He uses this when he walks the dog. Pt has a small dog named Rober. Pt had 1 fall in the last three months. He would like to get back to driving his car and pulling RV with diesel truck and feeling like he should be doing that. Pt reports imbalance with walking on an incline and uneven surfaces like the yard. His biggest PD related problems are brain fog, speaking softly, urinary urgency, headaches, walking. Pt has a history of prostate CA. He had radiation. He is getting up at night-time to go to the bathroom, up to 3x/ night. Pt is a and was in [place]. He may have been exposed to agent orange from [employer] equipment. [facility] as his exposure has not been recognized. Treatment Goals Patient/Caregiver Goals Improved balance and ability to get from point A to point B with control without running into objects or having to land to prevent fall. PT-OP-C Subjective Start: 08/11/21 15:40 Freq: Status: Active Protocol: Document 08/22/21 14:15 MB (Rec: 08/22/21 15:29 MB [id number]) OP-PT Subjective Patient Comments Patient Comments Pt states that left knee pain is the same upon PT arrival. He reports that it is not bothering him with gait today, PT does provide more supportive KT to knee. PT-OP-G Mobility & Gait Start: 08/11/21 15:40 Freq: Status: Active Protocol: Document 08/14/21 14:00 MB (Rec: 08/14/21 15:38 MB [id number]) OP Gait Assessment Comments Gait Comments Pt carries straight cane with wide base in right hand. He does not advance it with his left foot and tends to put it down at parts of gait where he loses his balance: when distracted, he keeps it behind him and then he loses his balance backwards and is able to self-correct. Overall, his gait is better without AD. PT-OP-M Strength Start: 08/11/21 15:40 Freq: Status: Active Protocol: Document 08/14/21 14:00 MB (Rec: 08/14/21 15:38 MB [id number]) Shoulder Strength Shoulder Manual Muscle Testing Bilateral Flexion 5 Normal Abduction (C5) 5 Normal Comments Limited end-range full shoulder flexion B, greater on the left and pt and report old left shoulder injury. Decreased left elbow extension as well. Elbow/Forearm Strength Elbow and Forearm Manual Muscle Testing Bilateral Flexion (C6) 5 Normal Extension (C7) 5 Normal Hip Strength Hip Manual Muscle Testing Bilateral Flexion (L2) 4 Good Knee Strength Knee Manual Muscle Testing Bilateral Flexion (S2) 5 Normal Extension (L3) 5 Normal Ankle/Foot Strength Ankle and Foot Manual Muscle Testing Bilateral Dorsiflexion (L4) 5 Normal Toe Strength Toe Manual Muscle Testing Left Great Toe Extension 4 Good Right Great Toe Extension 4 Good PT-OP-Q Treatments Start: 08/11/21 15:40 Freq: Status: Active Protocol: Document 08/22/21 14:15 MB (Rec: 08/22/21 15:29 MB [id number]) Therapeutic Exercises Sitting Exercises sideways step and reach Side bilateral Equipment Used Black mat in gym, no weights Reps/Minutes 10 reps Comments Improved control right leg today, ongoing exagerated, disconnnected LLE Forward step Side bilateral Equipment Used Black mat in gym, no weights Reps/Minutes 10 reps Comments Cues and pt tends to close eyes, occ dysmetric BIG sit to stand Equipment Used Black mat in gym, no weights Reps/Minutes 10 reps Comments Disconnected movements, pt has trouble counting with PT Floor to ceiling Equipment Used Black mat and no weights Reps/Minutes 10 reps Comments No LOB, occ closes eyes and has trouble keeping up with PT counting Therapeutic Activity Therapeutic Activity BIG writing Reps/Minutes 8' Comments Vertical paper and red ball point pen and pt's writing is bigger today with modeling after PT writing his name twice across top of page. He writes his name once in cursive and it is bigger and readable, only last e loses shape Carrying box Reps/Minutes 5' Comments Picking up larger wooden box in window and then smaller box , simulating placing in trunk and carrying to counter and pt 's gait is slow and no LOB. He tends to move box so that he is carrying narrow side Gait Training Gait Activity BIG walking Level of Assistance SBA to CGA on uneven sidewalk and grass Surface carpet, tile, grass, side walk , steps, incline on side walk Distance/Duration 26' Treatment Focus Keep up mandi with changing surface, BIG left foot Comments Black KT supporting left knee. Pt performs gait on varying surface in clinic, gym, indoor large staircase with shorter steps and left rail, inside hospital, sidewalk on inclines , on finer gravel, outdoor steps with left rail, uneven grass with divots and small hill and over parking concrete pieces. With change in surface, especially incline, he tends to stop and perform slow and exagerated left LE raise and long step, with turns, he stops and performs about face type movements of 90 deg rather than being able to adjust steps to stay on a clear course. PT-OP-T Assessment and Plan Start: 08/11/21 15:40 Freq: Status: Active Protocol: Document 08/22/21 14:15 MB (Rec: 08/22/21 15:29 MB [id number]) Physical Therapy Assessment Rehab Potential Rehabilitation Potential Fair Evaluation Complexity Number of Personal Factors/Comorbidities 3 or More Number of Body Systems Impaired 3 Clinical Presentation at Evaluation Evolving Impairments Impairments Activity Tolerance,Balance, Coordination,Functional Activities,Functional Mobility ,Gait,Pain,Posture,ROM, Strength,Transfers Other Impairments Personal factors include soft speech, cognitive changes, pt is not on a consistent sleeping or medication schedule. Body systems affected include cognitive, musculoskeletal and neurological. His clinical presentation is evolving. Other Concerns Fall Risk Yes Goals 3 Custodial Goal (LTG) Pt will gait train at least 1300 feet without AD in 6 minutes to improve community ambulation by the end of 16 treatments. LTG Duration 16 treatments 2 Customer Pricing Manager Goal (LTG) Pt will perform 10 reps sit to stand without UE support in 30 sec with controlled sit to stand movement and no LOB to improve transfers by the end of 16 treatments. LTG Duration 16 treatments 1 Custodial Goal (LTG) Pt will perform BIG exercises, daily functional tasks and walking with superv from to improve amplitude of movement, gait and balance by end of 16 treatments. LTG Duration 16 treatments Assessment Summary Assessment Improvements in gait today, especially. PT takes off black KT at start of treatment to check skin and then places another c strip under left patella and B I strips, black KT, for support and pt states that this feels good for walking. Ataxic movement con't to be a challenge. His left arm does not splay in extension behind him today with long walk outside and his LLE is better controlled, even without ankle weights with exercises today. Physical Therapy Plan Frequency and Duration Frequency of Treatment 4x/Week Duration of Treatment 16 treatments Plan of Care Start Date 08/14/21 Plan of Care End Date 09/13/21 Therapeutic Interventions Therapeutic Interventions Balance Training,Canalithic Repositioning,Coordination Training,Gait Training,Home Exercise Program,Neuromuscular Re-education,Patient/ Caregiver Education,Self-Care/ Home Management,Soft Tissue Mobilization,Therapeutic Activities,Therapeutic Exercises Modalities Cold Pack/Ice Massage,Hot Packs Next Visit Focus/Plan Next Note Type Treatment Note Next Visit Plan Consider trying some of the other sitting BIG exercises, anti-clockwise gait or outdoor gait pending weather
--- NOTE | 2021-08-23 15:51 | PT.OTN ---
Current Diagnoses Parkinson's disease (08/23/21) Physical Therapy Treatment Note PT-OP-A Visit Information Start: 08/11/21 15:40 Freq: Status: Active Protocol: Document 08/23/21 13:30 MB (Rec: 08/23/21 14:29 MB [id number]) Out-Patient Physical Therapy Visit Information Visit Information Visit Type Treatment Note Visit Note Medicare, [employer] 06/12 before KX Visit Start Time 13:30 Visit Stop Time 14:25 Total Visit Minutes 55 Visit Number 7 Evaluation Information Evaluation Date 08/14/21 PT-OP-B Current Condition Start: 08/11/21 15:40 Freq: Status: Active Protocol: Document 08/14/21 14:00 MB (Rec: 08/14/21 14:41 MB [id number]) Current Condition History of Current Condition Onset Date 2003 Current Complaints Imbalance History of Current Condition Pt has some trouble with swallowing including rice and apple peels. Pt's speech is very soft. Pt likes tomatoes. His dad had a grocery store in [place]. Pt reports that his PD symptoms started in 2003. His right thumb started trembling. 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 He had chemo treatment. He had three deep brain stimulator surgeries. He has several probes and perhaps some may not be working. He has the battery at [facility] [place]. It takes 30 minutes to charge everyday. He charges it at 3-4 p.m. everday. He cannot have any MRIs d/t the stimulator. Pt's neurologist, Dr. Susan Lawrence, adjusts his stimulator. Pt states that the stimulator has allowed him to take less Carbidopa Levodopa. He and dislike his soft speech. Pt reports that his tremor starts in his face and then moves in his body. He then feels it in his thumb. His mood changes some. He takes naps during the day. He gets up at different times in the morning. He is taking his medicine 1 hour before bed and the pills last 4-5 hours. He tries to take his first dose of Carbidopa Levodopa within an hour of waking up and then every 4 hours (per ). He occ takes Tylenol when he feels fog and headache starts coming on so he can defer when he has to take the Carbidopa Levodopa. He feels pounding and shaking occ in his head. The PD medication helps with tremor, shaking and brain fog. 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 Pt lives with his and there is one step in the garage to come into the house. He drives every now and then. He drives if his is afraid like in the city of [place]. Pt has a cane and a walker. He made it into a stand-up walker. He uses this when he walks the dog. Pt has a small dog named Rober. Pt had 1 fall in the last three months. He would like to get back to driving his car and pulling RV with diesel truck and feeling like he should be doing that. Pt reports imbalance with walking on an incline and uneven surfaces like the yard. His biggest PD related problems are brain fog, speaking softly, urinary urgency, headaches, walking. Pt has a history of prostate CA. He had radiation. He is getting up at night-time to go to the bathroom, up to 3x/ night. Pt is a and was in [place]. He may have been exposed to agent orange from [employer] equipment. [facility] as his exposure has not been recognized. Treatment Goals Patient/Caregiver Goals Improved balance and ability to get from point A to point B with control without running into objects or having to land to prevent fall. PT-OP-C Subjective Start: 08/11/21 15:40 Freq: Status: Active Protocol: Document 08/23/21 13:30 MB (Rec: 08/23/21 14:29 MB [id number]) OP-PT Subjective Patient Comments Patient Comments Pt states that his left knee felt pretty good after PT and it got stiff when he sat down last night. He slept pretty well. He didn't do his exercises this morning because he wanted to save his knee for PT. Pt states that he is going to have his flu shot after PT today. PT-OP-G Mobility & Gait Start: 08/11/21 15:40 Freq: Status: Active Protocol: Document 08/14/21 14:00 MB (Rec: 08/14/21 15:38 MB [id number]) OP Gait Assessment Comments Gait Comments Pt carries straight cane with wide base in right hand. He does not advance it with his left foot and tends to put it down at parts of gait where he loses his balance: when distracted, he keeps it behind him and then he loses his balance backwards and is able to self-correct. Overall, his gait is better without AD. PT-OP-M Strength Start: 08/11/21 15:40 Freq: Status: Active Protocol: Document 08/14/21 14:00 MB (Rec: 08/14/21 15:38 MB [id number]) Shoulder Strength Shoulder Manual Muscle Testing Bilateral Flexion 5 Normal Abduction (C5) 5 Normal Comments Limited end-range full shoulder flexion B, greater on the left and pt and report old left shoulder injury. Decreased left elbow extension as well. Elbow/Forearm Strength Elbow and Forearm Manual Muscle Testing Bilateral Flexion (C6) 5 Normal Extension (C7) 5 Normal Hip Strength Hip Manual Muscle Testing Bilateral Flexion (L2) 4 Good Knee Strength Knee Manual Muscle Testing Bilateral Flexion (S2) 5 Normal Extension (L3) 5 Normal Ankle/Foot Strength Ankle and Foot Manual Muscle Testing Bilateral Dorsiflexion (L4) 5 Normal Toe Strength Toe Manual Muscle Testing Left Great Toe Extension 4 Good Right Great Toe Extension 4 Good PT-OP-Q Treatments Start: 08/11/21 15:40 Freq: Status: Active Protocol: Document 08/23/21 13:30 MB (Rec: 08/23/21 14:29 MB [id number]) Therapeutic Exercises Sitting Exercises sideways step and reach Side bilateral Equipment Used Black mat in gym, no weights Reps/Minutes 10 reps Comments LLE is more ataxic today Forward step Side bilateral Equipment Used Black mat in gym, no weights Reps/Minutes 10 reps Comments Cues and pt tends to close eyes, occ dysmetric BIG sit to stand Equipment Used Black mat in gym, no weights Reps/Minutes 12 reps Comments Disconnected movements, pt has trouble counting with PT Floor to ceiling Equipment Used Black mat and no weights Reps/Minutes 10 reps Comments No LOB, occ closes eyes and has trouble keeping up with PT counting Therapeutic Activity Therapeutic Activity BIG writing Reps/Minutes 7' Comments Paper vertical and red ball point pen and pt writing his name under the two times that PT writes his name at the top of the page. Better time today keeping letters bigger and clearer. E con't to be challenging. When he slows down, he tends to press down hard on pen Carrying box Reps/Minutes 5' Comments Practiced picking up larger wooden box and carrying to make shift drunk on luibn mat that is lowered (next to wall) , place it in the trunk and then second small box behind it. Then, taking them out to put on counter. Pt tends to bend at waist. When cued to bend knees to protect back ( improve ergonomics), his left leg ER and is unsteady. No LOB with moving boxes today Gait Training Gait Activity BIG walking Level of Assistance SBA tilt, carpet, steps in clinic and hospital Surface See above Distance/Duration 23' Treatment Focus Taking smooth corners/curves Comments Today, ed pt to decrease about turn type movements around corners and curves in hospital and pt improves with this today with one LOB self- corrected when curving to the right. Two sets of large staircase management and cues to use the rail as pt does not think that he needs it. Ongoing decreased safety awareness with ataxia and dysmetric movement is concerned and puts him at increased risk for falling. When asked about left knee during gait, he denies pain. Occ left leg dysmetria and left arm extended and into dumb waiter operator's tip position. Cues to open his hands PT-OP-T Assessment and Plan Start: 08/11/21 15:40 Freq: Status: Active Protocol: Document 08/23/21 13:30 MB (Rec: 08/23/21 14:29 MB [id number]) Physical Therapy Assessment Rehab Potential Rehabilitation Potential Fair Evaluation Complexity Number of Personal Factors/Comorbidities 3 or More Number of Body Systems Impaired 3 Clinical Presentation at Evaluation Evolving Impairments Impairments Activity Tolerance,Balance, Coordination,Functional Activities,Functional Mobility ,Gait,Pain,Posture,ROM, Strength,Transfers Other Impairments Personal factors include soft speech, cognitive changes, pt is not on a consistent sleeping or medication schedule. Body systems affected include cognitive, musculoskeletal and neurological. His clinical presentation is evolving. Other Concerns Fall Risk Yes Goals 3 Case Management Assistant Goal (LTG) Pt will gait train at least 1300 feet without AD in 6 minutes to improve community ambulation by the end of 16 treatments. LTG Duration 16 treatments 2 Case Management Assistant Goal (LTG) Pt will perform 10 reps sit to stand without UE support in 30 sec with controlled sit to stand movement and no LOB to improve transfers by the end of 16 treatments. LTG Duration 16 treatments 1 Fpc Goal (LTG) Pt will perform BIG exercises, daily functional tasks and walking with superv from to improve amplitude of movement, gait and balance by end of 16 treatments. LTG Duration 16 treatments Assessment Summary Assessment KT is intact on left knee on pt arrival and so PT did not change it today in order to protect his skin. Improvements with gait inside today. Given his ongoing ataxia and dysmetria with exercises, will not progress further BIG sitting exercises. Con't current exercises and BIG walking. Physical Therapy Plan Frequency and Duration Frequency of Treatment 4x/Week Duration of Treatment 16 treatments Plan of Care Start Date 08/14/21 Plan of Care End Date 09/13/21 Therapeutic Interventions Therapeutic Interventions Balance Training,Canalithic Repositioning,Coordination Training,Gait Training,Home Exercise Program,Neuromuscular Re-education,Patient/ Caregiver Education,Self-Care/ Home Management,Soft Tissue Mobilization,Therapeutic Activities,Therapeutic Exercises Modalities Cold Pack/Ice Massage,Hot Packs Other Referrals/Consults Referrals/Consults Recommended See doctor about his left knee pain and then PT referral to treat left knee pain after BIG course Next Visit Focus/Plan Next Note Type Treatment Note Next Visit Plan See assessment
--- NOTE | 2021-08-24 15:56 | PT.OTN ---
Current Diagnoses Parkinson's disease (08/24/21) Physical Therapy Treatment Note PT-OP-A Visit Information Start: 08/11/21 15:40 Freq: Status: Active Protocol: Document 08/24/21 14:17 MB (Rec: 08/24/21 15:55 MB [id number]) Out-Patient Physical Therapy Visit Information Visit Information Visit Type Treatment Note Visit Note Medicare, [employer] 07/13 before KX Visit Start Time 14:17 Visit Stop Time 15:15 Total Visit Minutes 58 Visit Number 8 Evaluation Information Evaluation Date 08/14/21 PT-OP-B Current Condition Start: 08/11/21 15:40 Freq: Status: Active Protocol: Document 08/14/21 14:00 MB (Rec: 08/14/21 14:41 MB [id number]) Current Condition History of Current Condition Onset Date 2003 Current Complaints Imbalance History of Current Condition Pt has some trouble with swallowing including rice and apple peels. Pt's speech is very soft. Pt likes tomatoes. His dad had a grocery store in [place]. Pt reports that his PD symptoms started in 2003. His right thumb started trembling. 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 He had chemo treatment. He had three deep brain stimulator surgeries. He has several probes and perhaps some may not be working. [facility] It takes 30 minutes to charge everyday. He charges it at 3-4 p.m. everday. He cannot have any MRIs d/t the stimulator. Pt's neurologist, Dr. Susan Lawrence, adjusts his stimulator. Pt states that the stimulator has allowed him to take less Carbidopa Levodopa. He and dislike his soft speech. Pt reports that his tremor starts in his face and then moves in his body. He then feels it in his thumb. His mood changes some. He takes naps during the day. He gets up at different times in the morning. He is taking his medicine 1 hour before bed and the pills last 4-5 hours. He tries to take his first dose of Carbidopa Levodopa within an hour of waking up and then every 4 hours (per ). He occ takes Tylenol when he feels fog and headache starts coming on so he can defer when he has to take the Carbidopa Levodopa. He feels pounding and shaking occ in his head. The PD medication helps with tremor, shaking and brain fog. 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 Pt lives with his and there is one step in the garage to come into the house. He drives every now and then. He drives if his is afraid like in the city of [place]. Pt has a cane and a walker. He made it into a stand-up walker. He uses this when he walks the dog. Pt has a small dog named Rober. Pt had 1 fall in the last three months. He would like to get back to driving his car and pulling RV with diesel truck and feeling like he should be doing that. Pt reports imbalance with walking on an incline and uneven surfaces like the yard. His biggest PD related problems are brain fog, speaking softly, urinary urgency, headaches, walking. Pt has a history of prostate CA. He had radiation. He is getting up at night-time to go to the bathroom, up to 3x/ night. Pt is a and was in [place]. He may have been exposed to agent orange from [employer] equipment. [facility] with [facility] as his exposure has not been recognized. Treatment Goals Patient/Caregiver Goals Improved balance and ability to get from point A to point B with control without running into objects or having to land to prevent fall. PT-OP-C Subjective Start: 08/11/21 15:40 Freq: Status: Active Protocol: Document 08/24/21 14:17 MB (Rec: 08/24/21 15:55 MB [id number]) OP-PT Subjective Patient Comments Patient Comments Pt states that he feels heavy today and tired after flu shot yesterday. His left knee is not bothering him much. PT-OP-G Mobility & Gait Start: 08/11/21 15:40 Freq: Status: Active Protocol: Document 08/14/21 14:00 MB (Rec: 08/14/21 15:38 MB [id number]) OP Gait Assessment Comments Gait Comments Pt carries straight cane with wide base in right hand. He does not advance it with his left foot and tends to put it down at parts of gait where he loses his balance: when distracted, he keeps it behind him and then he loses his balance backwards and is able to self-correct. Overall, his gait is better without AD. PT-OP-M Strength Start: 08/11/21 15:40 Freq: Status: Active Protocol: Document 08/14/21 14:00 MB (Rec: 08/14/21 15:38 MB [id number]) Shoulder Strength Shoulder Manual Muscle Testing Bilateral Flexion 5 Normal Abduction (C5) 5 Normal Comments Limited end-range full shoulder flexion B, greater on the left and pt and report old left shoulder injury. Decreased left elbow extension as well. Elbow/Forearm Strength Elbow and Forearm Manual Muscle Testing Bilateral Flexion (C6) 5 Normal Extension (C7) 5 Normal Hip Strength Hip Manual Muscle Testing Bilateral Flexion (L2) 4 Good Knee Strength Knee Manual Muscle Testing Bilateral Flexion (S2) 5 Normal Extension (L3) 5 Normal Ankle/Foot Strength Ankle and Foot Manual Muscle Testing Bilateral Dorsiflexion (L4) 5 Normal Toe Strength Toe Manual Muscle Testing Left Great Toe Extension 4 Good Right Great Toe Extension 4 Good PT-OP-Q Treatments Start: 08/11/21 15:40 Freq: Status: Active Protocol: Document 08/24/21 14:17 MB (Rec: 08/24/21 15:55 MB [id number]) Therapeutic Exercises Sitting Exercises sideways step and reach Side bilateral Equipment Used Black mat in gym, no weights Reps/Minutes 10 reps Comments Better LE control today, pt occ closes eyes Forward step Side bilateral Equipment Used Black mat in gym, no weights Reps/Minutes 10 reps Comments Pt tends to close eyes and cues to bring feet back, dysmetria LLE BIG sit to stand Equipment Used Black mat in gym, no weights Reps/Minutes 15 reps Comments Pt tends to close eyes, delayed in counting Floor to ceiling Equipment Used Black mat and no weights Reps/Minutes 10 reps Comments No LOB, occ closes eyes and has trouble keeping up with PT counting Therapeutic Activity Therapeutic Activity BIG writing Reps/Minutes 8' Comments Paper vertical, red ball point pen. PT writes pt's name twice across top of page. Pt does much better today with writing stamina--bigger letters for longer time and no crossing out of name and his name spelled correctly over 20 times. Carrying box Reps/Minutes 5' Comments Picking up larger wooden box in window and carrying to make shift trunk, pushing it back to make room for second box. Pt requires cues to push it back today and then puts in smaller box. Then, carried to mat to mock counter and back to trunk and window sill and he improves with practice Gait Training Gait Activity BIG walking Level of Assistance SBA tilt, carpet, steps in clinic and hospital Surface See above Distance/Duration 23' Treatment Focus Taking smooth corners/curves Comments Improvement in curves today, he con't with left arm becoming rigid when walking counter clockwise around column and cues to relax arm. With stairs, he con't to have feet shoot out in front when going down the step d/t dysmetria and no LOB down the steps, he holds rail with left hand--regular and standard steps PT-OP-T Assessment and Plan Start: 08/11/21 15:40 Freq: Status: Active Protocol: Document 08/24/21 14:17 MB (Rec: 08/24/21 15:55 MB [id number]) Physical Therapy Assessment Rehab Potential Rehabilitation Potential Fair Evaluation Complexity Number of Personal Factors/Comorbidities 3 or More Number of Body Systems Impaired 3 Clinical Presentation at Evaluation Evolving Impairments Impairments Activity Tolerance,Balance, Coordination,Functional Activities,Functional Mobility ,Gait,Pain,Posture,ROM, Strength,Transfers Other Impairments Personal factors include soft speech, cognitive changes, pt is not on a consistent sleeping or medication schedule. Body systems affected include cognitive, musculoskeletal and neurological. His clinical presentation is evolving. Other Concerns Fall Risk Yes Goals 3 Collections Analyst Goal (LTG) Pt will gait train at least 1300 feet without AD in 6 minutes to improve community ambulation by the end of 16 treatments. LTG Duration 16 treatments 2 Intermediate Goal (LTG) Pt will perform 10 reps sit to stand without UE support in 30 sec with controlled sit to stand movement and no LOB to improve transfers by the end of 16 treatments. LTG Duration 16 treatments 1 Collections Analyst Goal (LTG) Pt will perform BIG exercises, daily functional tasks and walking with superv from to improve amplitude of movement, gait and balance by end of 16 treatments. LTG Duration 16 treatments Assessment Summary Assessment PT refreshes KT today to support left knee. His skin looks good but there is some residual tape on knee after PT cleans it with alcohol swab. Pt con't to improve with gait, carrying boxes and exercises. Con't per plan below. Physical Therapy Plan Frequency and Duration Frequency of Treatment 4x/Week Duration of Treatment 16 treatments Plan of Care Start Date 08/14/21 Plan of Care End Date 09/13/21 Therapeutic Interventions Therapeutic Interventions Balance Training,Canalithic Repositioning,Coordination Training,Gait Training,Home Exercise Program,Neuromuscular Re-education,Patient/ Caregiver Education,Self-Care/ Home Management,Soft Tissue Mobilization,Therapeutic Activities,Therapeutic Exercises Modalities Cold Pack/Ice Massage,Hot Packs Other Referrals/Consults Referrals/Consults Recommended See doctor about his left knee pain and then PT referral to treat left knee pain after BIG course Next Visit Focus/Plan Next Note Type Treatment Note Next Visit Plan Con't BIG walking and an outdoors, con't current 4 BIG exercises he has been doing
--- NOTE | 2021-08-28 15:41 | PT.OTN ---
Current Diagnoses Parkinson's disease (08/28/21) Physical Therapy Treatment Note PT-OP-A Visit Information Start: 08/11/21 15:40 Freq: Status: Active Protocol: Document 08/28/21 14:15 MB (Rec: 08/28/21 15:41 MB [id number]) Out-Patient Physical Therapy Visit Information Visit Information Visit Type Progress Note Visit Note Medicare, [employer] 08/13 before KX Visit Start Time 14:15 Visit Stop Time 15:20 Total Visit Minutes 65 Visit Number 9 Evaluation Information Evaluation Date 08/14/21 PT-OP-B Current Condition Start: 08/11/21 15:40 Freq: Status: Active Protocol: Document 08/14/21 14:00 MB (Rec: 08/14/21 14:41 MB [id number]) Current Condition History of Current Condition Onset Date 2003 Current Complaints Imbalance History of Current Condition Pt has some trouble with swallowing including rice and apple peels. Pt's speech is very soft. Pt likes tomatoes. His dad had a grocery store in [place]. Pt reports that his PD symptoms started in 2003. His right thumb started trembling. 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 He had chemo treatment. He had three deep brain stimulator surgeries. He has several probes and perhaps some may not be working. He has the battery at left [facility]. It takes 30 minutes to charge everyday. He charges it at 3-4 p.m. everday. He cannot have any MRIs d/t the stimulator. Pt's neurologist, Dr. Susan Lawrence, adjusts his stimulator. Pt states that the stimulator has allowed him to take less Carbidopa Levodopa. He and dislike his soft speech. Pt reports that his tremor starts in his face and then moves in his body. He then feels it in his thumb. His mood changes some. He takes naps during the day. He gets up at different times in the morning. He is taking his medicine 1 hour before bed and the pills last 4-5 hours. He tries to take his first dose of Carbidopa Levodopa within an hour of waking up and then every 4 hours (per ). He occ takes Tylenol when he feels fog and headache starts coming on so he can defer when he has to take the Carbidopa Levodopa. He feels pounding and shaking occ in his head. The PD medication helps with tremor, shaking and brain fog. 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 Pt lives with his and there is one step in the garage to come into the house. He drives every now and then. He drives if his is afraid like in the city of [place]. Pt has a cane and a walker. He made it into a stand-up walker. He uses this when he walks the dog. Pt has a small dog named Rober. Pt had 1 fall in the last three months. He would like to get back to driving his car and pulling RV with diesel truck and feeling like he should be doing that. Pt reports imbalance with walking on an incline and uneven surfaces like the yard. His biggest PD related problems are brain fog, speaking softly, urinary urgency, headaches, walking. Pt has a history of prostate CA. He had radiation. He is getting up at night-time to go to the bathroom, up to 3x/ night. Pt is a and was in [place]. He may have been exposed to agent orange from [employer] equipment. [facility] as his exposure has not been recognized. Treatment Goals Patient/Caregiver Goals Improved balance and ability to get from point A to point B with control without running into objects or having to land to prevent fall. PT-OP-C Subjective Start: 08/11/21 15:40 Freq: Status: Active Protocol: Document 08/28/21 14:15 MB (Rec: 08/28/21 15:41 MB [id number]) OP-PT Subjective Patient Comments Patient Comments Pt states that his knees are doing okay. Getting up in the morning causes imbalance. He walked 3 laps at the park by himself without AD over the weekend. PT-OP-G Mobility & Gait Start: 08/11/21 15:40 Freq: Status: Active Protocol: Document 08/14/21 14:00 MB (Rec: 08/14/21 15:38 MB [id number]) OP Gait Assessment Comments Gait Comments Pt carries straight cane with wide base in right hand. He does not advance it with his left foot and tends to put it down at parts of gait where he loses his balance: when distracted, he keeps it behind him and then he loses his balance backwards and is able to self-correct. Overall, his gait is better without AD. PT-OP-M Strength Start: 08/11/21 15:40 Freq: Status: Active Protocol: Document 08/14/21 14:00 MB (Rec: 08/14/21 15:38 MB [id number]) Shoulder Strength Shoulder Manual Muscle Testing Bilateral Flexion 5 Normal Abduction (C5) 5 Normal Comments Limited end-range full shoulder flexion B, greater on the left and pt and report old left shoulder injury. Decreased left elbow extension as well. Elbow/Forearm Strength Elbow and Forearm Manual Muscle Testing Bilateral Flexion (C6) 5 Normal Extension (C7) 5 Normal Hip Strength Hip Manual Muscle Testing Bilateral Flexion (L2) 4 Good Knee Strength Knee Manual Muscle Testing Bilateral Flexion (S2) 5 Normal Extension (L3) 5 Normal Ankle/Foot Strength Ankle and Foot Manual Muscle Testing Bilateral Dorsiflexion (L4) 5 Normal Toe Strength Toe Manual Muscle Testing Left Great Toe Extension 4 Good Right Great Toe Extension 4 Good PT-OP-Q Treatments Start: 08/11/21 15:40 Freq: Status: Active Protocol: Document 08/28/21 14:15 MB (Rec: 08/28/21 15:41 MB [id number]) Therapeutic Exercises Sitting Exercises Sit to stands Comments 10 reps in 30 today for progress note sideways step and reach Side bilateral Equipment Used Black mat in gym, no weights Reps/Minutes 10 reps Comments Better LE control today, pt occ closes eyes Forward step Side bilateral Equipment Used Black mat in gym, no weights Reps/Minutes 10 reps Comments Pt tends to close eyes and cues to bring feet back, dysmetria LLE better BIG sit to stand Equipment Used Black mat in gym, no weights Reps/Minutes 10 reps Comments Uncoordinated/robotic one joint at a time movement between UEs and LEs Floor to ceiling Equipment Used Black mat and no weights Reps/Minutes 10 reps Comments No LOB, occ closes eyes and has trouble keeping up with PT counting Gait Training Gait Activity BIG walking Level of Assistance SBA Surface Tile, carpet, cement, steps, grass Distance/Duration 23' Treatment Focus Keeping up speed, keep left arm down, open hands Comments Pt improves with gait inside and outside today, keeping balance, foot clearance, left arm swing, less fists and left arm dangling at side, steps inside and outside and inclines. Preparation for inclines, especially down inclines causes him to slow down and some nervousness and his steps get bigger and his left arm starts to draw into extension [id number] Comments 1427 feet in 6 minutes today and pt with improved mandi, stepping, foot clearance and arm swing--clockwise gait today Self-Care/Home Management Treatment Education Other Education PT ed pt, provides handouts and then reviews with after treatment: orthostatic hypotension and things to do and not do. BP and HR in LUE: supine 175/96, 68 standing 148/81, 79 standing 1' 147/82, 78 standing 2' 138/83, 80 Pt states that he does not always remember medications or take them at the same time and so re-ed pt and that they need to get on top of this PT-OP-T Assessment and Plan Start: 08/11/21 15:40 Freq: Status: Active Protocol: Document 08/28/21 14:15 MB (Rec: 08/28/21 15:41 MB [id number]) Physical Therapy Assessment Rehab Potential Rehabilitation Potential Fair Evaluation Complexity Number of Personal Factors/Comorbidities 3 or More Number of Body Systems Impaired 3 Clinical Presentation at Evaluation Evolving Impairments Impairments Activity Tolerance,Balance, Coordination,Functional Activities,Functional Mobility ,Gait,Pain,Posture,ROM, Strength,Transfers Other Impairments Personal factors include soft speech, cognitive changes, pt is not on a consistent sleeping or medication schedule. Body systems affected include cognitive, musculoskeletal and neurological. His clinical presentation is evolving. Other Concerns Fall Risk Yes Goals 3 Senior Care Goal (LTG) Pt will gait train at least 1500 feet without AD in 6 minutes to improve community ambulation by the end of 7 treatments. 08/28/21: Pt gait trains 1427 feet in 6 minutes without AD LTG Duration 7 treatments 2 Plate Inspector Goal (LTG) Pt will perform 12 reps sit to stand without UE support in 30 sec with controlled sit to stand movement and no LOB to improve transfers by the end of 7 treatments. 08/28/21: Pt performs 10 reps sit to stands without UE support or LOB in 30 sec. LTG Duration 7 treatments 1 Plate Inspector Goal (LTG) Pt will perform BIG exercises and and walking with superv from to improve amplitude of movement, gait and balance by end of 7 treatments. 08/28/21: Pt is performing exercises and BIG walking some of the time LTG Duration 7 treatments Assessment Summary Assessment Pt states that he is returning to doctor tomorrow. Progress note to be sent over today. Pt presents with orthostatic hypotension and has not been taking HTN or PD medications at a regular time everyday. Recommend that provider encourage this to pt and . Also recomment that doctor back up PT in that continuing BIG exercises and BIG gait on his own time (not just walking with his dog that he does with his walker) will keep him more balanced and better in the senior living. Pt has made great gains with balance, gait , and sit to stands since starting PT. 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 He had left knee pain at start of PT course that is settling down and PT had applied black KT for support again today. Con't the rest of BIG treatment. Physical Therapy Plan Frequency and Duration Frequency of Treatment 4x/Week Duration of Treatment 7 treatments Plan of Care Start Date 08/28/21 Plan of Care End Date 09/13/21 Therapeutic Interventions Therapeutic Interventions Balance Training,Canalithic Repositioning,Coordination Training,Gait Training,Home Exercise Program,Neuromuscular Re-education,Patient/ Caregiver Education,Self-Care/ Home Management,Soft Tissue Mobilization,Therapeutic Activities,Therapeutic Exercises Modalities Cold Pack/Ice Massage,Hot Packs Other Referrals/Consults Referrals/Consults Recommended See doctor about his left knee pain and then PT referral to treat left knee pain after BIG course Next Visit Focus/Plan Next Note Type Treatment Note Next Visit Plan Con't BIG walking with challenges in and outside, balance challenges
--- NOTE | 2021-08-28 15:41 | PT.OPPOC ---
Physical, Occupational & Speech Therapy At [facility] Current Diagnoses Parkinson's disease (08/28/21) Visit Care Team Role Provider Type Anson Benitez MD Primary Care Provider Physician Specialty: Family Practice Address: [address] [place] [address], [id number] Email: [email or web address] Susan Lawrence MD Attending Provider Non-Staff Referring Provider Specialty: Neurology Address: [address] [place] [address], [id number] Email: Plan Of Care PT-OP-T Assessment and Plan Start: 08/11/21 15:40 Freq: Status: Active Protocol: Document 08/28/21 14:15 MB (Rec: 08/28/21 15:41 MB [id number]) Physical Therapy Assessment Rehab Potential Rehabilitation Potential Fair Evaluation Complexity Number of Personal Factors/Comorbidities 3 or More Number of Body Systems Impaired 3 Clinical Presentation at Evaluation Evolving Impairments Impairments Activity Tolerance,Balance, Coordination,Functional Activities,Functional Mobility ,Gait,Pain,Posture,ROM, Strength,Transfers Other Impairments Personal factors include soft speech, cognitive changes, pt is not on a consistent sleeping or medication schedule. Body systems affected include cognitive, musculoskeletal and neurological. His clinical presentation is evolving. Other Concerns Fall Risk Yes Goals 3 Retirement Goal (LTG) Pt will gait train at least 1500 feet without AD in 6 minutes to improve community ambulation by the end of 7 treatments. 08/28/21: Pt gait trains 1427 feet in 6 minutes without AD LTG Duration 7 treatments 2 Education Paraprofessional Goal (LTG) Pt will perform 12 reps sit to stand without UE support in 30 sec with controlled sit to stand movement and no LOB to improve transfers by the end of 7 treatments. 08/28/21: Pt performs 10 reps sit to stands without UE support or LOB in 30 sec. LTG Duration 7 treatments 1 Retirement Goal (LTG) Pt will perform BIG exercises and and walking with superv from to improve amplitude of movement, gait and balance by end of 7 treatments. 08/28/21: Pt is performing exercises and BIG walking some of the time LTG Duration 7 treatments Assessment Summary Assessment Pt states that he is returning to doctor tomorrow. Progress note to be sent over today. Pt presents with orthostatic hypotension and has not been taking HTN or PD medications at a regular time everyday. Recommend that provider encourage this to pt and . Also recomment that doctor back up PT in that continuing BIG exercises and BIG gait on his own time (not just walking with his dog that he does with his walker) will keep him more balanced and better in the terminal gauger. Pt has made great gains with balance, gait , and sit to stands since starting PT. 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 He had left knee pain at start of PT course that is settling down and PT had applied black KT for support again today. Con't the rest of BIG treatment. Physical Therapy Plan Frequency and Duration Frequency of Treatment 4x/Week Duration of Treatment 7 treatments Plan of Care Start Date 08/28/21 Plan of Care End Date 09/13/21 Therapeutic Interventions Therapeutic Interventions Balance Training,Canalithic Repositioning,Coordination Training,Gait Training,Home Exercise Program,Neuromuscular Re-education,Patient/ Caregiver Education,Self-Care/ Home Management,Soft Tissue Mobilization,Therapeutic Activities,Therapeutic Exercises Modalities Cold Pack/Ice Massage,Hot Packs Other Referrals/Consults Referrals/Consults Recommended See doctor about his left knee pain and then PT referral to treat left knee pain after BIG course Next Visit Focus/Plan Next Note Type Treatment Note Next Visit Plan Con't BIG walking with challenges in and outside, balance challenges Plan of Care Dates Plan of Care Start Date 08/28/21 Plan of Care End Date 09/13/21 Electronically Signed by: Andressa Damon PT 08/28/21 [id number] Please Sign and Return: I have reviewed this Plan of Care and certify that the skilled therapy services above are required to meet the patient?s needs. Physician Signature Date Printed Name and Credentials Clinical Instructor Signature Printed Name and Credentials
--- NOTE | 2021-08-29 15:24 | PT.OTN ---
Current Diagnoses Parkinson's disease (08/29/21) Physical Therapy Treatment Note PT-OP-A Visit Information Start: 08/11/21 15:40 Freq: Status: Active Protocol: Document 08/29/21 14:00 MB (Rec: 08/29/21 15:24 MB [id number]) Out-Patient Physical Therapy Visit Information Visit Information Visit Type Treatment Note Visit Note Medicare, [employer] 09/12 before KX Visit Start Time 14:00 Visit Stop Time 15:00 Total Visit Minutes 60 Visit Number 20 Evaluation Information Evaluation Date 08/14/21 PT-OP-B Current Condition Start: 08/11/21 15:40 Freq: Status: Active Protocol: Document 08/14/21 14:00 MB (Rec: 08/14/21 14:41 MB [id number]) Current Condition History of Current Condition Onset Date 2003 Current Complaints Imbalance History of Current Condition Pt has some trouble with swallowing including rice and apple peels. Pt's speech is very soft. Pt likes tomatoes. His dad had a grocery store in [employer]. Pt reports that his PD symptoms started in 2003. His right thumb started trembling. 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 He had chemo treatment. He had three deep brain stimulator surgeries. He has several probes and perhaps some may not be working. He has the battery at left [facility] area. It takes 30 minutes to charge everyday. He charges it at 3-4 p.m. everday. He cannot have any MRIs d/t the stimulator. Pt's neurologist, Dr. Susan Lawrence, adjusts his stimulator. Pt states that the stimulator has allowed him to take less Carbidopa Levodopa. He and dislike his soft speech. Pt reports that his tremor starts in his face and then moves in his body. He then feels it in his thumb. His mood changes some. He takes naps during the day. He gets up at different times in the morning. He is taking his medicine 1 hour before bed and the pills last 4-5 hours. He tries to take his first dose of Carbidopa Levodopa within an hour of waking up and then every 4 hours (per ). He occ takes Tylenol when he feels fog and headache starts coming on so he can defer when he has to take the Carbidopa Levodopa. He feels pounding and shaking occ in his head. The PD medication helps with tremor, shaking and brain fog. 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 Pt lives with his and there is one step in the garage to come into the house. He drives every now and then. He drives if his is afraid like in the city of [place]. Pt has a cane and a walker. He made it into a stand-up walker. He uses this when he walks the dog. Pt has a small dog named Rober. Pt had 1 fall in the last three months. He would like to get back to driving his car and pulling RV with diesel truck and feeling like he should be doing that. Pt reports imbalance with walking on an incline and uneven surfaces like the yard. His biggest PD related problems are brain fog, speaking softly, urinary urgency, headaches, walking. Pt has a history of prostate CA. He had radiation. He is getting up at night-time to go to the bathroom, up to 3x/ night. Pt is a and was in [place]. He may have been exposed to agent orange from [employer] equipment. [facility] as his exposure has not been recognized. Treatment Goals Patient/Caregiver Goals Improved balance and ability to get from point A to point B with control without running into objects or having to land to prevent fall. PT-OP-C Subjective Start: 08/11/21 15:40 Freq: Status: Active Protocol: Document 08/29/21 14:00 MB (Rec: 08/29/21 15:24 MB [id number]) OP-PT Subjective Patient Comments Patient Comments Pt states that he woke up tired today. PT-OP-G Mobility & Gait Start: 08/11/21 15:40 Freq: Status: Active Protocol: Document 08/14/21 14:00 MB (Rec: 08/14/21 15:38 MB [id number]) OP Gait Assessment Comments Gait Comments Pt carries straight cane with wide base in right hand. He does not advance it with his left foot and tends to put it down at parts of gait where he loses his balance: when distracted, he keeps it behind him and then he loses his balance backwards and is able to self-correct. Overall, his gait is better without AD. PT-OP-M Strength Start: 08/11/21 15:40 Freq: Status: Active Protocol: Document 08/14/21 14:00 MB (Rec: 08/14/21 15:38 MB [id number]) Shoulder Strength Shoulder Manual Muscle Testing Bilateral Flexion 5 Normal Abduction (C5) 5 Normal Comments Limited end-range full shoulder flexion B, greater on the left and pt and report old left shoulder injury. Decreased left elbow extension as well. Elbow/Forearm Strength Elbow and Forearm Manual Muscle Testing Bilateral Flexion (C6) 5 Normal Extension (C7) 5 Normal Hip Strength Hip Manual Muscle Testing Bilateral Flexion (L2) 4 Good Knee Strength Knee Manual Muscle Testing Bilateral Flexion (S2) 5 Normal Extension (L3) 5 Normal Ankle/Foot Strength Ankle and Foot Manual Muscle Testing Bilateral Dorsiflexion (L4) 5 Normal Toe Strength Toe Manual Muscle Testing Left Great Toe Extension 4 Good Right Great Toe Extension 4 Good PT-OP-Q Treatments Start: 08/11/21 15:40 Freq: Status: Active Protocol: Document 08/29/21 14:00 MB (Rec: 08/29/21 15:24 MB [id number]) Therapeutic Exercises Sitting Exercises sideways step and reach Side bilateral Equipment Used Black mat in gym, no weights Reps/Minutes 10 reps Comments Better LE control today, eyes open Forward step Side bilateral Equipment Used Black mat in gym, no weights Reps/Minutes 10 reps Comments Improvements with eyes open BIG sit to stand Equipment Used Black mat in gym, no weights Reps/Minutes 15 reps Comments Improved with eyes opened Floor to ceiling Equipment Used Black mat and no weights Reps/Minutes 10 reps Comments Improvements today with eyes opened Therapeutic Activity Therapeutic Activity BIG writing Reps/Minutes 8' Comments 2 sheets of paper vertical (pt likes to have one to bear down on) and he writes name in capital letters, two per line , under PT writing his name twice. His writing con't to improve, cues to make an L for E with bottom branch of E to be more congruent Carrying box Reps/Minutes 7' Comments Picking up larger wooden box in window and carrying to make shift trunk, pushing it back to make room for second box. Then, carried to counter and back to trunk and window sill and he improves with practice Gait Training Gait Activity BIG walking Level of Assistance Superv Surface Tile, carpet, inside clinic and hospital Distance/Duration 23' Treatment Focus Keeping up speed with turns and steps, both hand use on rails Comments PT is able to take a step back with gait training inside today and pt requires superv assist with gait. Pt is doing a better job keeping mandi, step-length even and left arm down PT-OP-T Assessment and Plan Start: 08/11/21 15:40 Freq: Status: Active Protocol: Document 08/29/21 14:00 MB (Rec: 08/29/21 15:24 MB [id number]) Physical Therapy Assessment Rehab Potential Rehabilitation Potential Fair Evaluation Complexity Number of Personal Factors/Comorbidities 3 or More Number of Body Systems Impaired 3 Clinical Presentation at Evaluation Evolving Impairments Impairments Activity Tolerance,Balance, Coordination,Functional Activities,Functional Mobility ,Gait,Pain,Posture,ROM, Strength,Transfers Other Impairments Personal factors include soft speech, cognitive changes, pt is not on a consistent sleeping or medication schedule. Body systems affected include cognitive, musculoskeletal and neurological. His clinical presentation is evolving. Other Concerns Fall Risk Yes Goals 3 Residential Goal (LTG) Pt will gait train at least 1500 feet without AD in 6 minutes to improve community ambulation by the end of 7 treatments. 08/28/21: Pt gait trains 1427 feet in 6 minutes without AD LTG Duration 7 treatments 2 Guide [place] Goal (LTG) Pt will perform 12 reps sit to stand without UE support in 30 sec with controlled sit to stand movement and no LOB to improve transfers by the end of 7 treatments. 08/28/21: Pt performs 10 reps sit to stands without UE support or LOB in 30 sec. LTG Duration 7 treatments 1 Residential Goal (LTG) Pt will perform BIG exercises and and walking with superv from to improve amplitude of movement, gait and balance by end of 7 treatments. 08/28/21: Pt is performing exercises and BIG walking some of the time LTG Duration 7 treatments Assessment Summary Assessment Pt con't to improved with control of left LE with exercises and gait and left arm with gait. Cues to open eyes for exercises and for right and left when given commands for gait path today as he gets right and left confused. His writting is bigger. Physical Therapy Plan Frequency and Duration Frequency of Treatment 4x/Week Duration of Treatment 7 treatments Plan of Care Start Date 08/28/21 Plan of Care End Date 09/13/21 Therapeutic Interventions Therapeutic Interventions Balance Training,Canalithic Repositioning,Coordination Training,Gait Training,Home Exercise Program,Neuromuscular Re-education,Patient/ Caregiver Education,Self-Care/ Home Management,Soft Tissue Mobilization,Therapeutic Activities,Therapeutic Exercises Modalities Cold Pack/Ice Massage,Hot Packs Other Referrals/Consults Referrals/Consults Recommended See doctor about his left knee pain and then PT referral to treat left knee pain after BIG course Next Visit Focus/Plan Next Note Type Treatment Note Next Visit Plan Con't BIG walking with challenges in and outside, balance challenges
--- NOTE | 2021-08-30 17:06 | PT.OTN ---
Current Diagnoses Parkinson's disease (08/30/21) Physical Therapy Treatment Note PT-OP-A Visit Information Start: 08/11/21 15:40 Freq: Status: Active Protocol: Document 08/30/21 15:10 AW (Rec: 08/30/21 15:18 AW [id number]) Out-Patient Physical Therapy Visit Information Visit Information Visit Type Treatment Note Visit Note Medicare, [employer] 10/13 before KX Visit Start Time 14:15 Visit Stop Time 15:10 Total Visit Minutes 55 Visit Number 11 Evaluation Information Evaluation Date 08/14/21 PT-OP-B Current Condition Start: 08/11/21 15:40 Freq: Status: Active Protocol: Document 08/14/21 14:00 MB (Rec: 08/14/21 14:41 MB [id number]) Current Condition History of Current Condition Onset Date 2003 Current Complaints Imbalance History of Current Condition Pt has some trouble with swallowing including rice and apple peels. Pt's speech is very soft. Pt likes tomatoes. His dad had a grocery store in [place] [employer]. Pt reports that his PD symptoms started in 2003. His right thumb started trembling. 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 He had chemo treatment. He had three deep brain stimulator surgeries. He has several probes and perhaps some may not be working. [facility]. It takes 30 minutes to charge everyday. He charges it at 3-4 p.m. everday. He cannot have any MRIs d/t the stimulator. Pt's neurologist, Dr. Susan Lawrence, adjusts his stimulator. Pt states that the stimulator has allowed him to take less Carbidopa Levodopa. He and dislike his soft speech. Pt reports that his tremor starts in his face and then moves in his body. He then feels it in his thumb. His mood changes some. He takes naps during the day. He gets up at different times in the morning. He is taking his medicine 1 hour before bed and the pills last 4-5 hours. He tries to take his first dose of Carbidopa Levodopa within an hour of waking up and then every 4 hours (per ). He occ takes Tylenol when he feels fog and headache starts coming on so he can defer when he has to take the Carbidopa Levodopa. He feels pounding and shaking occ in his head. The PD medication helps with tremor, shaking and brain fog. 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 Pt lives with his and there is one step in the garage to come into the house. He drives every now and then. He drives if his is afraid like in the city of [place]. Pt has a cane and a walker. He made it into a stand-up walker. He uses this when he walks the dog. Pt has a small dog named Rober. Pt had 1 fall in the last three months. He would like to get back to driving his car and pulling RV with diesel truck and feeling like he should be doing that. Pt reports imbalance with walking on an incline and uneven surfaces like the yard. His biggest PD related problems are brain fog, speaking softly, urinary urgency, headaches, walking. Pt has a history of prostate CA. He had radiation. He is getting up at night-time to go to the bathroom, up to 3x/ night. Pt is a and was in [place]. He may have been exposed to agent orange from [employer] equipment. [facility] as his exposure has not been recognized. Treatment Goals Patient/Caregiver Goals Improved balance and ability to get from point A to point B with control without running into objects or having to land to prevent fall. PT-OP-C Subjective Start: 08/11/21 15:40 Freq: Status: Active Protocol: Document 08/30/21 15:10 AW (Rec: 08/30/21 15:18 AW [id number]) OP-PT Subjective Patient Comments Patient Comments I didn't sleep very well last night since I had cold feet. Pt saw neurology yesterday after PT and felt he didn't walk as well as he did in therapy. Pt's spouse thinks he has been walking better. PT-OP-G Mobility & Gait Start: 08/11/21 15:40 Freq: Status: Active Protocol: Document 08/14/21 14:00 MB (Rec: 08/14/21 15:38 MB [id number]) OP Gait Assessment Comments Gait Comments Pt carries straight cane with wide base in right hand. He does not advance it with his left foot and tends to put it down at parts of gait where he loses his balance: when distracted, he keeps it behind him and then he loses his balance backwards and is able to self-correct. Overall, his gait is better without AD. PT-OP-M Strength Start: 08/11/21 15:40 Freq: Status: Active Protocol: Document 08/14/21 14:00 MB (Rec: 08/14/21 15:38 MB [id number]) Shoulder Strength Shoulder Manual Muscle Testing Bilateral Flexion 5 Normal Abduction (C5) 5 Normal Comments Limited end-range full shoulder flexion B, greater on the left and pt and report old left shoulder injury. Decreased left elbow extension as well. Elbow/Forearm Strength Elbow and Forearm Manual Muscle Testing Bilateral Flexion (C6) 5 Normal Extension (C7) 5 Normal Hip Strength Hip Manual Muscle Testing Bilateral Flexion (L2) 4 Good Knee Strength Knee Manual Muscle Testing Bilateral Flexion (S2) 5 Normal Extension (L3) 5 Normal Ankle/Foot Strength Ankle and Foot Manual Muscle Testing Bilateral Dorsiflexion (L4) 5 Normal Toe Strength Toe Manual Muscle Testing Left Great Toe Extension 4 Good Right Great Toe Extension 4 Good PT-OP-Q Treatments Start: 08/11/21 15:40 Freq: Status: Active Protocol: Document 08/30/21 15:10 AW (Rec: 08/30/21 15:18 AW [id number]) Therapeutic Exercises Sitting Exercises sideways step and reach Side bilateral Equipment Used Black mat in gym, no weights Reps/Minutes 10 reps Comments Better LE control today, eyes open Forward step Side bilateral Equipment Used Black mat in gym, no weights Reps/Minutes 10 reps Comments cued eyes open and firmly planted stance foot BIG sit to stand Equipment Used Black mat in gym, no weights Reps/Minutes 15 reps x 2 Comments Improved with eyes opened Floor to ceiling Equipment Used Black mat and no weights Reps/Minutes 10 reps Comments Pt leads exercise and counting is done with strong voice. Therapeutic Activity Therapeutic Activity BIG writing Reps/Minutes 8' Comments 2 sheets of paper vertical (pt likes to have one to bear down on) and he writes name in capital letters, one per line , then two per line under PT writing his name twice. His writing con't to improve, cues to make an L for E with bottom branch of E to be more congruent Carrying box Reps/Minutes 7' Comments Picking up larger wooden box in window and carrying to makeshift trunk, pushing it back to make room for second box. Then, carried to counter and back to trunk and window sill. No LOB today and pt requires no more than SBA Gait Training Gait Activity BIG walking Level of Assistance Superv Surface sidewalk, stairs, ramps Distance/Duration 25' Treatment Focus Keeping up speed with turns and steps, both hand use on rails Comments Pt did weaving in and out of columns outside clinic with good amplitude. Continues to be challenged with steep incline but remembers to slow down before taking downhill route and leans more appropriately Self-Care/Home Management Treatment Education Other Education Encouraged pt and his to walk outside together for increased reps in BIG walking PT-OP-T Assessment and Plan Start: 08/11/21 15:40 Freq: Status: Active Protocol: Document 08/30/21 15:10 AW (Rec: 08/30/21 17:06 AW [id number]) Physical Therapy Assessment Rehab Potential Rehabilitation Potential Fair Evaluation Complexity Number of Personal Factors/Comorbidities 3 or More Number of Body Systems Impaired 3 Clinical Presentation at Evaluation Evolving Impairments Impairments Activity Tolerance,Balance, Coordination,Functional Activities,Functional Mobility ,Gait,Pain,Posture,ROM, Strength,Transfers Other Impairments Personal factors include soft speech, cognitive changes, pt is not on a consistent sleeping or medication schedule. Body systems affected include cognitive, musculoskeletal and neurological. His clinical presentation is evolving. Other Concerns Fall Risk Yes Goals 3 Radiology Orderly Goal (LTG) Pt will gait train at least 1500 feet without AD in 6 minutes to improve community ambulation by the end of 7 treatments. 08/28/21: Pt gait trains 1427 feet in 6 minutes without AD LTG Duration 7 treatments 2 Senior Living Goal (LTG) Pt will perform 12 reps sit to stand without UE support in 30 sec with controlled sit to stand movement and no LOB to improve transfers by the end of 7 treatments. 08/28/21: Pt performs 10 reps sit to stands without UE support or LOB in 30 sec. LTG Duration 7 treatments 1 Senior Living Goal (LTG) Pt will perform BIG exercises and and walking with superv from to improve amplitude of movement, gait and balance by end of 7 treatments. 08/28/21: Pt is performing exercises and BIG walking some of the time LTG Duration 7 treatments Assessment Summary Assessment Pt arrived stating he was tired and off. Ataxia was more evident as pt entered the gym. After exercise (pt took lead on floor to ceiling), pt' s gait was improved with better control of LUE extension and no evidence of steppage gait LLE even on inclines. Educated pt and his on importance of continuing daily exercises and BIG walking at home for increased reps to improve carryover. Physical Therapy Plan Frequency and Duration Frequency of Treatment 4x/Week Duration of Treatment 7 treatments Plan of Care Start Date 08/28/21 Plan of Care End Date 09/13/21 Therapeutic Interventions Therapeutic Interventions Balance Training,Canalithic Repositioning,Coordination Training,Gait Training,Home Exercise Program,Neuromuscular Re-education,Patient/ Caregiver Education,Self-Care/ Home Management,Soft Tissue Mobilization,Therapeutic Activities,Therapeutic Exercises Modalities Cold Pack/Ice Massage,Hot Packs Other Referrals/Consults Referrals/Consults Recommended See doctor about his left knee pain and then PT referral to treat left knee pain after BIG course Next Visit Focus/Plan Next Note Type Treatment Note Next Visit Plan Con't BIG walking with challenges in and outside, balance challenges
--- NOTE | 2021-08-31 15:20 | PT.OTN ---
Current Diagnoses Parkinson's disease (08/31/21) Physical Therapy Treatment Note PT-OP-A Visit Information Start: 08/11/21 15:40 Freq: Status: Active Protocol: Document 08/31/21 14:10 MB (Rec: 08/31/21 15:20 MB [id number]) Out-Patient Physical Therapy Visit Information Visit Information Visit Type Treatment Note Visit Note Medicare, [employer] 11/12 before KX Visit Start Time 14:10 Visit Stop Time 15:06 Total Visit Minutes 56 Visit Number 12 Evaluation Information Evaluation Date 08/14/21 PT-OP-B Current Condition Start: 08/11/21 15:40 Freq: Status: Active Protocol: Document 08/14/21 14:00 MB (Rec: 08/14/21 14:41 MB [id number]) Current Condition History of Current Condition Onset Date 2003 Current Complaints Imbalance History of Current Condition Pt has some trouble with swallowing including rice and apple peels. Pt's speech is very soft. Pt likes tomatoes. His dad had a grocery store in [employer]. Pt reports that his PD symptoms started in 2003. His right thumb started trembling. 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 He had chemo treatment. He had three deep brain stimulator surgeries. He has several probes and perhaps some may not be working. [facility]. It takes 30 minutes to charge everyday. He charges it at 3-4 p.m. everday. He cannot have any MRIs d/t the stimulator. Pt's neurologist, Dr. Susan Lawrence, adjusts his stimulator. Pt states that the stimulator has allowed him to take less Carbidopa Levodopa. He and dislike his soft speech. Pt reports that his tremor starts in his face and then moves in his body. He then feels it in his thumb. His mood changes some. He takes naps during the day. He gets up at different times in the morning. He is taking his medicine 1 hour before bed and the pills last 4-5 hours. He tries to take his first dose of Carbidopa Levodopa within an hour of waking up and then every 4 hours (per ). He occ takes Tylenol when he feels fog and headache starts coming on so he can defer when he has to take the Carbidopa Levodopa. He feels pounding and shaking occ in his head. The PD medication helps with tremor, shaking and brain fog. 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 Pt lives with his and there is one step in the garage to come into the house. He drives every now and then. He drives if his is afraid like in the city of [place]. Pt has a cane and a walker. He made it into a stand-up walker. He uses this when he walks the dog. Pt has a small dog named Rober. Pt had 1 fall in the last three months. He would like to get back to driving his car and pulling RV with diesel truck and feeling like he should be doing that. Pt reports imbalance with walking on an incline and uneven surfaces like the yard. His biggest PD related problems are brain fog, speaking softly, urinary urgency, headaches, walking. Pt has a history of prostate CA. He had radiation. He is getting up at night-time to go to the bathroom, up to 3x/ night. Pt is a and was in [place]. He may have been exposed to agent orange from [employer] equipment. [facility] as his exposure has not been recognized. Treatment Goals Patient/Caregiver Goals Improved balance and ability to get from point A to point B with control without running into objects or having to land to prevent fall. PT-OP-C Subjective Start: 08/11/21 15:40 Freq: Status: Active Protocol: Document 08/31/21 14:10 MB (Rec: 08/31/21 15:20 MB [id number]) OP-PT Subjective Patient Comments Patient Comments Pt states that he is not feeling strong today. PT-OP-G Mobility & Gait Start: 08/11/21 15:40 Freq: Status: Active Protocol: Document 08/14/21 14:00 MB (Rec: 08/14/21 15:38 MB [id number]) OP Gait Assessment Comments Gait Comments Pt carries straight cane with wide base in right hand. He does not advance it with his left foot and tends to put it down at parts of gait where he loses his balance: when distracted, he keeps it behind him and then he loses his balance backwards and is able to self-correct. Overall, his gait is better without AD. PT-OP-M Strength Start: 08/11/21 15:40 Freq: Status: Active Protocol: Document 08/14/21 14:00 MB (Rec: 08/14/21 15:38 MB [id number]) Shoulder Strength Shoulder Manual Muscle Testing Bilateral Flexion 5 Normal Abduction (C5) 5 Normal Comments Limited end-range full shoulder flexion B, greater on the left and pt and report old left shoulder injury. Decreased left elbow extension as well. Elbow/Forearm Strength Elbow and Forearm Manual Muscle Testing Bilateral Flexion (C6) 5 Normal Extension (C7) 5 Normal Hip Strength Hip Manual Muscle Testing Bilateral Flexion (L2) 4 Good Knee Strength Knee Manual Muscle Testing Bilateral Flexion (S2) 5 Normal Extension (L3) 5 Normal Ankle/Foot Strength Ankle and Foot Manual Muscle Testing Bilateral Dorsiflexion (L4) 5 Normal Toe Strength Toe Manual Muscle Testing Left Great Toe Extension 4 Good Right Great Toe Extension 4 Good PT-OP-Q Treatments Start: 08/11/21 15:40 Freq: Status: Active Protocol: Document 08/31/21 14:10 MB (Rec: 08/31/21 15:20 MB [id number]) Therapeutic Exercises Sitting Exercises sideways step and reach Side bilateral Equipment Used Black mat in gym, no weights Reps/Minutes 10 reps Comments Better LE control today, eyes open Forward step Side bilateral Equipment Used Black mat in gym, no weights Reps/Minutes 10 reps Comments Improvements with eyes open BIG sit to stand Equipment Used Black mat in gym, no weights Reps/Minutes 15 reps Comments Improved with eyes opened Floor to ceiling Equipment Used Black mat and no weights Reps/Minutes 10 reps Comments Pt requires cues to reach forward first and not down Therapeutic Activity Therapeutic Activity BIG writing Reps/Minutes 8' Comments 2 sheets of paper vertical (pt likes to have one to bear down on) and he writes name in capital letters, two per line , under PT writing his name twice. His writing is bigger today and only 1-2 cues to make an L for E with bottom branch of E to be more congruent Carrying box Reps/Minutes 5' Comments Picking up larger wooden box in window and carrying to make shift trunk on lower mat today, pushing it back to make room for second box. Then, carried to counter and back to trunk and window sill and he improves with practice Gait Training Gait Activity BIG walking Level of Assistance Superv Surface Carpet, tile, steps in and outdoors, sidwalk, parking lot Distance/Duration 23' Treatment Focus Keeping up mandi and left arm in control Comments Pt with fatigue today. He does con't to do well with gait on incline, steps and other surfaces though he con't to require cues to use the rail for safety Self-Care/Home Management Treatment Education Other Education Wrote out instructions for pt to show (see assessment) with ongoing ed about importance of follow-through with BIG exercises and walking and that walking the dog does not count PT-OP-T Assessment and Plan Start: 08/11/21 15:40 Freq: Status: Active Protocol: Document 08/31/21 14:10 MB (Rec: 08/31/21 15:20 MB [id number]) Physical Therapy Assessment Rehab Potential Rehabilitation Potential Fair Evaluation Complexity Number of Personal Factors/Comorbidities 3 or More Number of Body Systems Impaired 3 Clinical Presentation at Evaluation Evolving Impairments Impairments Activity Tolerance,Balance, Coordination,Functional Activities,Functional Mobility ,Gait,Pain,Posture,ROM, Strength,Transfers Other Impairments Personal factors include soft speech, cognitive changes, pt is not on a consistent sleeping or medication schedule. Body systems affected include cognitive, musculoskeletal and neurological. His clinical presentation is evolving. Other Concerns Fall Risk Yes Goals 3 Life Skills Trainer Goal (LTG) Pt will gait train at least 1500 feet without AD in 6 minutes to improve community ambulation by the end of 7 treatments. 08/28/21: Pt gait trains 1427 feet in 6 minutes without AD LTG Duration 7 treatments 2 Life Skills Trainer Goal (LTG) Pt will perform 12 reps sit to stand without UE support in 30 sec with controlled sit to stand movement and no LOB to improve transfers by the end of 7 treatments. 08/28/21: Pt performs 10 reps sit to stands without UE support or LOB in 30 sec. LTG Duration 7 treatments 1 Life Skills Trainer Goal (LTG) Pt will perform BIG exercises and and walking with superv from to improve amplitude of movement, gait and balance by end of 7 treatments. 08/28/21: Pt is performing exercises and BIG walking some of the time LTG Duration 7 treatments Assessment Summary Assessment Pt con't with reports of not feeling strong. Exercises, therapeutic activities and gait require more effort and fatigue him quicker today. Overall, he con't to do very well. PT writes out instructions for pt and for him to con't BIG exercises once a day and BIG walking at least 20 minutes everyday going forward. Pt is concerned about having a place to walk when the weather changes. His does not like walking and especially when the weather isn't perfect. PT is concerned about pt's carryover with BIG exercises and gait at d/c. Physical Therapy Plan Frequency and Duration Frequency of Treatment 4x/Week Duration of Treatment 7 treatments Plan of Care Start Date 08/28/21 Plan of Care End Date 09/13/21 Therapeutic Interventions Therapeutic Interventions Balance Training,Canalithic Repositioning,Coordination Training,Gait Training,Home Exercise Program,Neuromuscular Re-education,Patient/ Caregiver Education,Self-Care/ Home Management,Soft Tissue Mobilization,Therapeutic Activities,Therapeutic Exercises Modalities Cold Pack/Ice Massage,Hot Packs Other Referrals/Consults Referrals/Consults Recommended See doctor about his left knee pain and then PT referral to treat left knee pain after BIG course Next Visit Focus/Plan Next Note Type Treatment Note Next Visit Plan Con't BIG walking with challenges in and outside, balance challenges
--- NOTE | 2021-09-04 15:34 | PT.OTN ---
Current Diagnoses Parkinson's disease (09/04/21) Physical Therapy Treatment Note PT-OP-A Visit Information Start: 08/11/21 15:40 Freq: Status: Active Protocol: Document 09/04/21 14:15 MB (Rec: 09/04/21 15:33 MB [id number]) Out-Patient Physical Therapy Visit Information Visit Information Visit Type Treatment Note Visit Note Medicare, [employer]a before KX Visit Start Time 14:15 Visit Stop Time 15:15 Total Visit Minutes 60 Visit Number 13 Evaluation Information Evaluation Date 08/14/21 PT-OP-B Current Condition Start: 08/11/21 15:40 Freq: Status: Active Protocol: Document 08/14/21 14:00 MB (Rec: 08/14/21 14:41 MB [id number]) Current Condition History of Current Condition Onset Date 2003 Current Complaints Imbalance History of Current Condition Pt has some trouble with swallowing including rice and apple peels. Pt's speech is very soft. Pt likes tomatoes. His dad had a grocery store in [employer]. Pt reports that his PD symptoms started in 2003. His right thumb started trembling. 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 He had chemo treatment. He had three deep brain stimulator surgeries. He has several probes and perhaps some may not be working. [facility]. It takes 30 minutes to charge everyday. He charges it at 3-4 p.m. everday. He cannot have any MRIs d/t the stimulator. Pt's neurologist, Dr. Susan Lawrence, adjusts his stimulator. Pt states that the stimulator has allowed him to take less Carbidopa Levodopa. He and dislike his soft speech. Pt reports that his tremor starts in his face and then moves in his body. He then feels it in his thumb. His mood changes some. He takes naps during the day. He gets up at different times in the morning. He is taking his medicine 1 hour before bed and the pills last 4-5 hours. He tries to take his first dose of Carbidopa Levodopa within an hour of waking up and then every 4 hours (per ). He occ takes Tylenol when he feels fog and headache starts coming on so he can defer when he has to take the Carbidopa Levodopa. He feels pounding and shaking occ in his head. The PD medication helps with tremor, shaking and brain fog. 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 Pt lives with his and there is one step in the garage to come into the house. He drives every now and then. He drives if his is afraid like in the city of [place]. Pt has a cane and a walker. He made it into a stand-up walker. He uses this when he walks the dog. Pt has a small dog named Rober. Pt had 1 fall in the last three months. He would like to get back to driving his car and pulling RV with diesel truck and feeling like he should be doing that. Pt reports imbalance with walking on an incline and uneven surfaces like the yard. His biggest PD related problems are brain fog, speaking softly, urinary urgency, headaches, walking. Pt has a history of prostate CA. He had radiation. He is getting up at night-time to go to the bathroom, up to 3x/ night. Pt is a and was in [place]. He may have been exposed to agent orange from [employer] equipment. [facility] with [facility] as his exposure has not been recognized. Treatment Goals Patient/Caregiver Goals Improved balance and ability to get from point A to point B with control without running into objects or having to land to prevent fall. PT-OP-C Subjective Start: 08/11/21 15:40 Freq: Status: Active Protocol: Document 09/04/21 14:15 MB (Rec: 09/04/21 15:33 MB [id number]) OP-PT Subjective Patient Comments Patient Comments Pt states that he did three laps at the park yesterday and did his exercises. He took the KT off because his skin started itching. PT-OP-G Mobility & Gait Start: 08/11/21 15:40 Freq: Status: Active Protocol: Document 08/14/21 14:00 MB (Rec: 08/14/21 15:38 MB [id number]) OP Gait Assessment Comments Gait Comments Pt carries straight cane with wide base in right hand. He does not advance it with his left foot and tends to put it down at parts of gait where he loses his balance: when distracted, he keeps it behind him and then he loses his balance backwards and is able to self-correct. Overall, his gait is better without AD. PT-OP-M Strength Start: 08/11/21 15:40 Freq: Status: Active Protocol: Document 08/14/21 14:00 MB (Rec: 08/14/21 15:38 MB [id number]) Shoulder Strength Shoulder Manual Muscle Testing Bilateral Flexion 5 Normal Abduction (C5) 5 Normal Comments Limited end-range full shoulder flexion B, greater on the left and pt and report old left shoulder injury. Decreased left elbow extension as well. Elbow/Forearm Strength Elbow and Forearm Manual Muscle Testing Bilateral Flexion (C6) 5 Normal Extension (C7) 5 Normal Hip Strength Hip Manual Muscle Testing Bilateral Flexion (L2) 4 Good Knee Strength Knee Manual Muscle Testing Bilateral Flexion (S2) 5 Normal Extension (L3) 5 Normal Ankle/Foot Strength Ankle and Foot Manual Muscle Testing Bilateral Dorsiflexion (L4) 5 Normal Toe Strength Toe Manual Muscle Testing Left Great Toe Extension 4 Good Right Great Toe Extension 4 Good PT-OP-Q Treatments Start: 08/11/21 15:40 Freq: Status: Active Protocol: Document 09/04/21 14:15 MB (Rec: 09/04/21 15:33 MB [id number]) Therapeutic Exercises Sitting Exercises sideways step and reach Side bilateral Equipment Used Black mat in gym Reps/Minutes 10 reps Comments Less LLE control today Forward step Side bilateral Equipment Used Black mat in gym Reps/Minutes 10 reps Comments Less LLE control today BIG sit to stand Equipment Used Black mat in gym Reps/Minutes 20 reps Comments Good performance today, eyes open Floor to ceiling Equipment Used Black mat Reps/Minutes 10 reps Comments Better performance today Therapeutic Activity Therapeutic Activity BIG writing Reps/Minutes 8' Comments 2 sheets of paper vertical (pt likes to have one to bear down on) and he writes name in capital letters, two per line , under PT writing his name twice only the first few lines . His writing is bigger today and he runs out of space and occ has smaller letters running into line above. He has more ataxia today in general Carrying box Reps/Minutes 5' Comments Picking up larger wooden box in window and carrying to make shift trunk on lower mat today, pushing it back to make room for second box. Then, carried to counter and back to trunk and window sill and he is more ataxic today in general with stepping, greater on left foot Gait Training Gait Activity BIG walking Level of Assistance SBA Surface Carpet, tile, indoor steps, parking lot, gravel, grass, sidewalk Distance/Duration 30' Treatment Focus Working on keeping speed and balance under control, relaxing left arm Comments Pt with much more ataxia today with left foot crossing in front of the right on the stairs and with gait outside, less left arm control, more left foot ataxia with step initiation after stopping, poorer mandi control, especially when approaching curbs, steps, and grass and this increases fall risk. PT-OP-T Assessment and Plan Start: 08/11/21 15:40 Freq: Status: Active Protocol: Document 09/04/21 14:15 MB (Rec: 09/04/21 15:33 MB [id number]) Physical Therapy Assessment Rehab Potential Rehabilitation Potential Fair Evaluation Complexity Number of Personal Factors/Comorbidities 3 or More Number of Body Systems Impaired 3 Clinical Presentation at Evaluation Evolving Impairments Impairments Activity Tolerance,Balance, Coordination,Functional Activities,Functional Mobility ,Gait,Pain,Posture,ROM, Strength,Transfers Other Impairments Personal factors include soft speech, cognitive changes, pt is not on a consistent sleeping or medication schedule. Body systems affected include cognitive, musculoskeletal and neurological. His clinical presentation is evolving. Other Concerns Fall Risk Yes Goals 3 Business Intelligence Developer Goal (LTG) Pt will gait train at least 1500 feet without AD in 6 minutes to improve community ambulation by the end of 7 treatments. 08/28/21: Pt gait trains 1427 feet in 6 minutes without AD LTG Duration 7 treatments 2 Business Intelligence Developer Goal (LTG) Pt will perform 12 reps sit to stand without UE support in 30 sec with controlled sit to stand movement and no LOB to improve transfers by the end of 7 treatments. 08/28/21: Pt performs 10 reps sit to stands without UE support or LOB in 30 sec. LTG Duration 7 treatments 1 Residential Goal (LTG) Pt will perform BIG exercises and and walking with superv from to improve amplitude of movement, gait and balance by end of 7 treatments. 08/28/21: Pt is performing exercises and BIG walking some of the time LTG Duration 7 treatments Assessment Summary Assessment No KT left knee today. PT ed pt and that pt needs to go to bed at the same time and get up at the same time and take BP and PD medications at the same time everyday to stay on top of PD symptoms or to see if this is part of why he feels tired (not being consistent with meds). His movement is way more ataxic today and his fall risk was higher with gait training today--less control of left foot, left arm, speed and steps. Physical Therapy Plan Frequency and Duration Frequency of Treatment 4x/Week Duration of Treatment 7 treatments Plan of Care Start Date 08/28/21 Plan of Care End Date 09/13/21 Therapeutic Interventions Therapeutic Interventions Balance Training,Canalithic Repositioning,Coordination Training,Gait Training,Home Exercise Program,Neuromuscular Re-education,Patient/ Caregiver Education,Self-Care/ Home Management,Soft Tissue Mobilization,Therapeutic Activities,Therapeutic Exercises Modalities Cold Pack/Ice Massage,Hot Packs Next Visit Focus/Plan Next Note Type Treatment Note Next Visit Plan Con't BIG walking with challenges in and outside, balance challenges
--- NOTE | 2021-09-05 15:25 | PT.OTN ---
Current Diagnoses Parkinson's disease (09/05/21) Physical Therapy Treatment Note PT-OP-A Visit Information Start: 08/11/21 15:40 Freq: Status: Active Protocol: Document 09/05/21 15:00 MB (Rec: 09/05/21 15:24 MB [id number]) Out-Patient Physical Therapy Visit Information Visit Information Visit Type Treatment Note Visit Note Medicare, C[employer] before KX Visit Start Time 14:15 Visit Stop Time 15:08 Total Visit Minutes 53 Visit Number 14 Evaluation Information Evaluation Date 08/14/21 PT-OP-B Current Condition Start: 08/11/21 15:40 Freq: Status: Active Protocol: Document 08/14/21 14:00 MB (Rec: 08/14/21 14:41 MB [id number]) Current Condition History of Current Condition Onset Date 2003 Current Complaints Imbalance History of Current Condition Pt has some trouble with swallowing including rice and apple peels. Pt's speech is very soft. Pt likes tomatoes. His dad had a grocery store in [employer]. Pt reports that his PD symptoms started in 2003. His right thumb started trembling. 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 He had chemo treatment. He had three deep brain stimulator surgeries. He has several probes and perhaps some may not be working. [facility]. It takes 30 minutes to charge everyday. He charges it at 3-4 p.m. everday. He cannot have any MRIs d/t the stimulator. Pt's neurologist, Dr. Susan Lawrence, adjusts his stimulator. Pt states that the stimulator has allowed him to take less Carbidopa Levodopa. He and dislike his soft speech. Pt reports that his tremor starts in his face and then moves in his body. He then feels it in his thumb. His mood changes some. He takes naps during the day. He gets up at different times in the morning. He is taking his medicine 1 hour before bed and the pills last 4-5 hours. He tries to take his first dose of Carbidopa Levodopa within an hour of waking up and then every 4 hours (per ). He occ takes Tylenol when he feels fog and headache starts coming on so he can defer when he has to take the Carbidopa Levodopa. He feels pounding and shaking occ in his head. The PD medication helps with tremor, shaking and brain fog. 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 Pt lives with his and there is one step in the garage to come into the house. He drives every now and then. He drives if his is afraid like in the city of [place]. Pt has a cane and a walker. He made it into a stand-up walker. He uses this when he walks the dog. Pt has a small dog named Rober. Pt had 1 fall in the last three months. He would like to get back to driving his car and pulling RV with diesel truck and feeling like he should be doing that. Pt reports imbalance with walking on an incline and uneven surfaces like the yard. His biggest PD related problems are brain fog, speaking softly, urinary urgency, headaches, walking. Pt has a history of prostate CA. He had radiation. He is getting up at night-time to go to the bathroom, up to 3x/ night. Pt is a and was in [place]. He may have been exposed to agent orange from [employer] equipment. [facility] as his exposure has not been recognized. Treatment Goals Patient/Caregiver Goals Improved balance and ability to get from point A to point B with control without running into objects or having to land to prevent fall. PT-OP-C Subjective Start: 08/11/21 15:40 Freq: Status: Active Protocol: Document 09/05/21 15:00 MB (Rec: 09/05/21 15:24 MB [id number]) OP-PT Subjective Patient Comments Patient Comments Pt states that he is listening to PT and trying to take medication more regularly. He took PD medication at 10 a.m. PT-OP-G Mobility & Gait Start: 08/11/21 15:40 Freq: Status: Active Protocol: Document 08/14/21 14:00 MB (Rec: 08/14/21 15:38 MB [id number]) OP Gait Assessment Comments Gait Comments Pt carries straight cane with wide base in right hand. He does not advance it with his left foot and tends to put it down at parts of gait where he loses his balance: when distracted, he keeps it behind him and then he loses his balance backwards and is able to self-correct. Overall, his gait is better without AD. PT-OP-M Strength Start: 08/11/21 15:40 Freq: Status: Active Protocol: Document 08/14/21 14:00 MB (Rec: 08/14/21 15:38 MB [id number]) Shoulder Strength Shoulder Manual Muscle Testing Bilateral Flexion 5 Normal Abduction (C5) 5 Normal Comments Limited end-range full shoulder flexion B, greater on the left and pt and report old left shoulder injury. Decreased left elbow extension as well. Elbow/Forearm Strength Elbow and Forearm Manual Muscle Testing Bilateral Flexion (C6) 5 Normal Extension (C7) 5 Normal Hip Strength Hip Manual Muscle Testing Bilateral Flexion (L2) 4 Good Knee Strength Knee Manual Muscle Testing Bilateral Flexion (S2) 5 Normal Extension (L3) 5 Normal Ankle/Foot Strength Ankle and Foot Manual Muscle Testing Bilateral Dorsiflexion (L4) 5 Normal Toe Strength Toe Manual Muscle Testing Left Great Toe Extension 4 Good Right Great Toe Extension 4 Good PT-OP-Q Treatments Start: 08/11/21 15:40 Freq: Status: Active Protocol: Document 09/05/21 15:00 MB (Rec: 09/05/21 15:24 MB [id number]) Therapeutic Exercises Sitting Exercises sideways step and reach Side bilateral Equipment Used Mesh chair with arms Reps/Minutes 10 reps Comments Improved LE control today Forward step Side bilateral Equipment Used Mesh chair with arms Reps/Minutes 10 reps Comments Improved LE control today BIG sit to stand Equipment Used Mesh chair with arms Reps/Minutes 15 reps Comments Good performance today Floor to ceiling Equipment Used Mesh chair with arms Reps/Minutes 10 reps Comments Trouble with sequencing of exercise today Therapeutic Activity Therapeutic Activity BIG writing Reps/Minutes 9' Comments 2 sheets of paper vertical (pt likes to have one to bear down on) and he writes name in capital letters, two per line , under PT writing his name twice only the first few lines . His writing is improved today compared to last date. He does one line of E cued by PT after two messier E Carrying box Reps/Minutes 4' Comments Picking up larger wooden box in window and carrying to make shift trunk on lower mat today, pushing it back to make room for second box. Then, carried to counter and back to trunk and window sill and he is improved today with stepping Gait Training Gait Activity BIG walking Level of Assistance Superv, then SBA at exactly 1500 Surface Carpet, tile, indoor steps Distance/Duration 27' Treatment Focus Working on keeping steps more equal and in control Comments Several reps of going to get water, carrying cup of partly full water with right hand and pt with right SB of trunk when carrying cup Gait in gym, hallway, steps in building outside clinic, steps in hospital to acute and to lower offices--rail use right and left today and overally, gait is improved and less ataxic compared to last date except for at 1500, gait becomes ataxic and this occurs quickly, like a switch. Pt states that maybe he took medication closer to 11 a.m. PT-OP-T Assessment and Plan Start: 08/11/21 15:40 Freq: Status: Active Protocol: Document 09/05/21 15:00 MB (Rec: 09/05/21 15:24 MB [id number]) Physical Therapy Assessment Rehab Potential Rehabilitation Potential Fair Evaluation Complexity Number of Personal Factors/Comorbidities 3 or More Number of Body Systems Impaired 3 Clinical Presentation at Evaluation Evolving Impairments Impairments Activity Tolerance,Balance, Coordination,Functional Activities,Functional Mobility ,Gait,Pain,Posture,ROM, Strength,Transfers Other Impairments Personal factors include soft speech, cognitive changes, pt is not on a consistent sleeping or medication schedule. Body systems affected include cognitive, musculoskeletal and neurological. His clinical presentation is evolving. Other Concerns Fall Risk Yes Goals 3 Computer Systems Information Director Goal (LTG) Pt will gait train at least 1500 feet without AD in 6 minutes to improve community ambulation by the end of 7 treatments. 08/28/21: Pt gait trains 1427 feet in 6 minutes without AD LTG Duration 7 treatments 2 Computer Systems Information Director Goal (LTG) Pt will perform 12 reps sit to stand without UE support in 30 sec with controlled sit to stand movement and no LOB to improve transfers by the end of 7 treatments. 08/28/21: Pt performs 10 reps sit to stands without UE support or LOB in 30 sec. LTG Duration 7 treatments 1 Computer Systems Information Director Goal (LTG) Pt will perform BIG exercises and and walking with superv from to improve amplitude of movement, gait and balance by end of 7 treatments. 08/28/21: Pt is performing exercises and BIG walking some of the time LTG Duration 7 treatments Assessment Summary Assessment No KT left knee today. Pt's movement is better today and initially, pt states that he is taking medication more regularly and at 10 a.m. this morning. He states he is taking it every 4 hours. At 1500, like a switch, his ataxia becomes a lot worse with less LLE control, slower movement and less balance overall. PT ed pt that if medication was last taken at 10 a.m., 4 hours would have been at 1400. Pt then states that he most likely took medication at 11. Overall, questionable medication routine con't to be a big barrier and PT re-ed pt and in importance of taking medications as prescribed, at the same time each day. Con't PT. Physical Therapy Plan Frequency and Duration Frequency of Treatment 4x/Week Duration of Treatment 7 treatments Plan of Care Start Date 08/28/21 Plan of Care End Date 09/13/21 Therapeutic Interventions Therapeutic Interventions Balance Training,Canalithic Repositioning,Coordination Training,Gait Training,Home Exercise Program,Neuromuscular Re-education,Patient/ Caregiver Education,Self-Care/ Home Management,Soft Tissue Mobilization,Therapeutic Activities,Therapeutic Exercises Modalities Cold Pack/Ice Massage,Hot Packs Next Visit Focus/Plan Next Note Type Treatment Note Next Visit Plan Con't BIG walking with challenges in and outside, balance challenges
--- NOTE | 2021-09-06 17:13 | PT.OTN ---
Current Diagnoses Parkinson's disease (09/06/21) Physical Therapy Treatment Note PT-OP-A Visit Information Start: 08/11/21 15:40 Freq: Status: Active Protocol: Document 09/06/21 15:15 AW (Rec: 09/06/21 17:13 AW [id number]) Out-Patient Physical Therapy Visit Information Visit Information Visit Type Treatment Note Visit Note Medicare, Cigna before KX Visit Start Time 14:17 Visit Stop Time 15:15 Total Visit Minutes 58 Visit Number 15 Evaluation Information Evaluation Date 08/14/21 PT-OP-B Current Condition Start: 08/11/21 15:40 Freq: Status: Active Protocol: Document 08/14/21 14:00 MB (Rec: 08/14/21 14:41 MB [id number]) Current Condition History of Current Condition Onset Date 2003 Current Complaints Imbalance History of Current Condition Pt has some trouble with swallowing including rice and apple peels. Pt's speech is very soft. Pt likes tomatoes. His dad had a grocery store in [employer]. Pt reports that his PD symptoms started in 2003. His right thumb started trembling. 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 He had chemo treatment. He had three deep brain stimulator surgeries. He has several probes and perhaps some may not be working. [facility]. It takes 30 minutes to charge everyday. He charges it at 3-4 p.m. everday. He cannot have any MRIs d/t the stimulator. Pt's neurologist, Dr. Susan Lawrence, adjusts his stimulator. Pt states that the stimulator has allowed him to take less Carbidopa Levodopa. He and dislike his soft speech. Pt reports that his tremor starts in his face and then moves in his body. He then feels it in his thumb. His mood changes some. He takes naps during the day. He gets up at different times in the morning. He is taking his medicine 1 hour before bed and the pills last 4-5 hours. He tries to take his first dose of Carbidopa Levodopa within an hour of waking up and then every 4 hours (per ). He occ takes Tylenol when he feels fog and headache starts coming on so he can defer when he has to take the Carbidopa Levodopa. He feels pounding and shaking occ in his head. The PD medication helps with tremor, shaking and brain fog. 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 Pt lives with his and there is one step in the garage to come into the house. He drives every now and then. He drives if his is afraid like in the city of [place]. Pt has a cane and a walker. He made it into a stand-up walker. He uses this when he walks the dog. Pt has a small dog named Rober. Pt had 1 fall in the last three months. He would like to get back to driving his car and pulling RV with diesel truck and feeling like he should be doing that. Pt reports imbalance with walking on an incline and uneven surfaces like the yard. His biggest PD related problems are brain fog, speaking softly, urinary urgency, headaches, walking. Pt has a history of prostate CA. He had radiation. He is getting up at night-time to go to the bathroom, up to 3x/ night. Pt is a and was in [place]. He may have been exposed to agent orange from [employer] equipment. He has [facility] with [facility] as his exposure has not been recognized. Treatment Goals Patient/Caregiver Goals Improved balance and ability to get from point A to point B with control without running into objects or having to land to prevent fall. PT-OP-C Subjective Start: 08/11/21 15:40 Freq: Status: Active Protocol: Document 09/06/21 15:15 AW (Rec: 09/06/21 17:13 AW [id number]) OP-PT Subjective Patient Comments Patient Comments I took my last dose at 1:00 PT-OP-G Mobility & Gait Start: 08/11/21 15:40 Freq: Status: Active Protocol: Document 08/14/21 14:00 MB (Rec: 08/14/21 15:38 MB [id number]) OP Gait Assessment Comments Gait Comments Pt carries straight cane with wide base in right hand. He does not advance it with his left foot and tends to put it down at parts of gait where he loses his balance: when distracted, he keeps it behind him and then he loses his balance backwards and is able to self-correct. Overall, his gait is better without AD. PT-OP-M Strength Start: 08/11/21 15:40 Freq: Status: Active Protocol: Document 08/14/21 14:00 MB (Rec: 08/14/21 15:38 MB [id number]) Shoulder Strength Shoulder Manual Muscle Testing Bilateral Flexion 5 Normal Abduction (C5) 5 Normal Comments Limited end-range full shoulder flexion B, greater on the left and pt and report old left shoulder injury. Decreased left elbow extension as well. Elbow/Forearm Strength Elbow and Forearm Manual Muscle Testing Bilateral Flexion (C6) 5 Normal Extension (C7) 5 Normal Hip Strength Hip Manual Muscle Testing Bilateral Flexion (L2) 4 Good Knee Strength Knee Manual Muscle Testing Bilateral Flexion (S2) 5 Normal Extension (L3) 5 Normal Ankle/Foot Strength Ankle and Foot Manual Muscle Testing Bilateral Dorsiflexion (L4) 5 Normal Toe Strength Toe Manual Muscle Testing Left Great Toe Extension 4 Good Right Great Toe Extension 4 Good PT-OP-Q Treatments Start: 08/11/21 15:40 Freq: Status: Active Protocol: Document 09/06/21 15:15 AW (Rec: 09/06/21 17:13 AW [id number]) Therapeutic Exercises Sitting Exercises sideways step and reach Side bilateral Equipment Used black mat in gym Reps/Minutes 10 reps Comments cues to plant the left foot Forward step Side bilateral Equipment Used black mat in gym Reps/Minutes 10 reps Comments requires cues for trunk control, BIG hands BIG sit to stand Equipment Used black mat in gym Reps/Minutes 15 reps Comments easily completes 15 reps from black mat in lowest position Floor to ceiling Equipment Used black mat in gym Reps/Minutes 10 reps Comments 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 He does one line of S cued by PT and maintains amplitude all the way across the page. Carrying box Reps/Minutes 8' Comments Picking up larger wooden box in window and carrying to make shift trunk on lower mat today, pushing it back to make room for second box. Then, carried to counter and back to trunk and window sill and he is improved today with stepping Gait Training Gait Activity BIG walking Level of Assistance SBA, occasional CGA Surface Carpet, tile, indoor and outdoor steps, steep incline Distance/Duration 26' Treatment Focus mandi, quick turns, quick stops Comments Walked inside and outside hospital this date on carpet, tile, sidewalk, stairs, ramps. Included quick turns, responding to obstacles, quick stops. On two occasions, quick stops require CGA to arrest forward momentum. Pt does improve to forward stepping strategy to manage momentum during quick stops. PT-OP-T Assessment and Plan Start: 08/11/21 15:40 Freq: Status: Active Protocol: Document 09/06/21 15:15 AW (Rec: 09/06/21 17:13 AW [id number]) Physical Therapy Assessment Rehab Potential Rehabilitation Potential Fair Evaluation Complexity Number of Personal Factors/Comorbidities 3 or More Number of Body Systems Impaired 3 Clinical Presentation at Evaluation Evolving Impairments Impairments Activity Tolerance,Balance, Coordination,Functional Activities,Functional Mobility ,Gait,Pain,Posture,ROM, Strength,Transfers Other Impairments Personal factors include soft speech, cognitive changes, pt is not on a consistent sleeping or medication schedule. Body systems affected include cognitive, musculoskeletal and neurological. His clinical presentation is evolving. Other Concerns Fall Risk Yes Goals 3 Placement Manager Goal (LTG) Pt will gait train at least 1500 feet without AD in 6 minutes to improve community ambulation by the end of 7 treatments. 08/28/21: Pt gait trains 1427 feet in 6 minutes without AD LTG Duration 7 treatments 2 Custodial Goal (LTG) Pt will perform 12 reps sit to stand without UE support in 30 sec with controlled sit to stand movement and no LOB to improve transfers by the end of 7 treatments. 08/28/21: Pt performs 10 reps sit to stands without UE support or LOB in 30 sec. LTG Duration 7 treatments 1 Custodial Goal (LTG) Pt will perform BIG exercises and and walking with superv from to improve amplitude of movement, gait and balance by end of 7 treatments. 08/28/21: Pt is performing exercises and BIG walking some of the time LTG Duration 7 treatments Assessment Summary Assessment Pt walked in to gym with marked ataxia. Gait and balance improved post-exercise today and pt demonstrates good arm swing bilaterally and can maintain pace during gait training. He struggled initially with quick stops but progressed to good stepping strategy after multiple reps. Physical Therapy Plan Frequency and Duration Frequency of Treatment 4x/Week Duration of Treatment 7 treatments Plan of Care Start Date 08/28/21 Plan of Care End Date 09/13/21 Therapeutic Interventions Therapeutic Interventions Balance Training,Canalithic Repositioning,Coordination Training,Gait Training,Home Exercise Program,Neuromuscular Re-education,Patient/ Caregiver Education,Self-Care/ Home Management,Soft Tissue Mobilization,Therapeutic Activities,Therapeutic Exercises Modalities Cold Pack/Ice Massage,Hot Packs Next Visit Focus/Plan Next Note Type Treatment Note Next Visit Plan Con't BIG walking with challenges in and outside, balance challenges
--- NOTE | 2021-09-11 15:31 | PT.OTN ---
Current Diagnoses Parkinson's disease (09/11/21) Physical Therapy Treatment Note PT-OP-A Visit Information Start: 08/11/21 15:40 Freq: Status: Active Protocol: Document 09/11/21 14:16 MB (Rec: 09/11/21 15:31 MB [id number]) Out-Patient Physical Therapy Visit Information Visit Information Visit Type Treatment Note Visit Note Medicare, [employer] before KX Visit Start Time 14:16 Visit Stop Time 15:16 Total Visit Minutes 60 Visit Number 16 Evaluation Information Evaluation Date 08/14/21 PT-OP-B Current Condition Start: 08/11/21 15:40 Freq: Status: Active Protocol: Document 08/14/21 14:00 MB (Rec: 08/14/21 14:41 MB [id number]) Current Condition History of Current Condition Onset Date 2003 Current Complaints Imbalance History of Current Condition Pt has some trouble with swallowing including rice and apple peels. Pt's speech is very soft. Pt likes tomatoes. His dad had a grocery store in [employer] Pt reports that his PD symptoms started in 2003. His right thumb started trembling. 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 He had chemo treatment. He had three deep brain stimulator surgeries. He has several probes and perhaps some may not be working. He has the battery at [place] [facility] [place]. It takes 30 minutes to charge everyday. He charges it at 3-4 p.m. everday. He cannot have any MRIs d/t the stimulator. Pt's neurologist, Dr. Susan Lawrence, adjusts his stimulator. Pt states that the stimulator has allowed him to take less Carbidopa Levodopa. He and dislike his soft speech. Pt reports that his tremor starts in his face and then moves in his body. He then feels it in his thumb. His mood changes some. He takes naps during the day. He gets up at different times in the morning. He is taking his medicine 1 hour before bed and the pills last 4-5 hours. He tries to take his first dose of Carbidopa Levodopa within an hour of waking up and then every 4 hours (per ). He occ takes Tylenol when he feels fog and headache starts coming on so he can defer when he has to take the Carbidopa Levodopa. He feels pounding and shaking occ in his head. The PD medication helps with tremor, shaking and brain fog. 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 Pt lives with his and there is one step in the garage to come into the house. He drives every now and then. He drives if his is afraid like in the city of [place]. Pt has a cane and a walker. He made it into a stand-up walker. He uses this when he walks the dog. Pt has a small dog named Rober. Pt had 1 fall in the last three months. He would like to get back to driving his car and pulling RV with diesel truck and feeling like he should be doing that. Pt reports imbalance with walking on an incline and uneven surfaces like the yard. His biggest PD related problems are brain fog, speaking softly, urinary urgency, headaches, walking. Pt has a history of prostate CA. He had radiation. He is getting up at night-time to go to the bathroom, up to 3x/ night. Pt is a and was in [place]. He may have been exposed to agent orange from [employer] equipment. [facility] as his exposure has not been recognized. Treatment Goals Patient/Caregiver Goals Improved balance and ability to get from point A to point B with control without running into objects or having to land to prevent fall. PT-OP-C Subjective Start: 08/11/21 15:40 Freq: Status: Active Protocol: Document 09/11/21 14:16 MB (Rec: 09/11/21 15:31 MB [id number]) OP-PT Subjective Patient Comments Patient Comments Coming in the morning messes with my sleeping. Pt states that he cannot make Saturday' s PT appointment. PT-OP-G Mobility & Gait Start: 08/11/21 15:40 Freq: Status: Active Protocol: Document 08/14/21 14:00 MB (Rec: 08/14/21 15:38 MB [id number]) OP Gait Assessment Comments Gait Comments Pt carries straight cane with wide base in right hand. He does not advance it with his left foot and tends to put it down at parts of gait where he loses his balance: when distracted, he keeps it behind him and then he loses his balance backwards and is able to self-correct. Overall, his gait is better without AD. PT-OP-M Strength Start: 08/11/21 15:40 Freq: Status: Active Protocol: Document 08/14/21 14:00 MB (Rec: 08/14/21 15:38 MB [id number]) Shoulder Strength Shoulder Manual Muscle Testing Bilateral Flexion 5 Normal Abduction (C5) 5 Normal Comments Limited end-range full shoulder flexion B, greater on the left and pt and report old left shoulder injury. Decreased left elbow extension as well. Elbow/Forearm Strength Elbow and Forearm Manual Muscle Testing Bilateral Flexion (C6) 5 Normal Extension (C7) 5 Normal Hip Strength Hip Manual Muscle Testing Bilateral Flexion (L2) 4 Good Knee Strength Knee Manual Muscle Testing Bilateral Flexion (S2) 5 Normal Extension (L3) 5 Normal Ankle/Foot Strength Ankle and Foot Manual Muscle Testing Bilateral Dorsiflexion (L4) 5 Normal Toe Strength Toe Manual Muscle Testing Left Great Toe Extension 4 Good Right Great Toe Extension 4 Good PT-OP-Q Treatments Start: 08/11/21 15:40 Freq: Status: Active Protocol: Document 09/11/21 14:16 MB (Rec: 09/11/21 15:31 MB [id number]) Therapeutic Exercises Sitting Exercises Sit to stands Comments 12 reps in 30 sec today sideways step and reach Side bilateral Equipment Used Teal chair in gym Reps/Minutes 10 reps Comments Improvement with this today Forward step Side bilateral Equipment Used Teal chair in gym Reps/Minutes 10 Comments Truncal ataxia makes sitting posture challenging, some dysmetria left foot BIG sit to stand Equipment Used Teal chair in gym Reps/Minutes 10 reps Comments Better performance Floor to ceiling Equipment Used Teal chair in gym Reps/Minutes 10 reps Comments Improvement today Gait Training Gait Activity BIG walking Level of Assistance SBA with occ CGA Surface Carpet, tile, indoor and outdoor steps, sidewalk, parking lot, uneven grass Distance/Duration 32 Treatment Focus Keeping up mandi, BIG posture and keeping balance Comments Cues for pt to grab rail each time he approaches steps, occ ataxic truncal posture with fatigue that influences gait and balance control. Occ left arm extended and more rigid and he can drop with cues, trouble making smooth, tight curves today and slows down with going down grass hill on uneven ground and PT does provide CGA. Overall improvement with gait over increase gait time and distance 6MWT Comments Pt gait trains 1566 feet in 6 minutes today performing clockwise gait in gym and hallways. Improvement in speed and he does have some ataxia, no LOB or running into objects, cues to open fingers while keeping hands big. Occ left arm rigid and extended and self-corrected, superv asst PT-OP-T Assessment and Plan Start: 08/11/21 15:40 Freq: Status: Active Protocol: Document 09/11/21 14:16 MB (Rec: 09/11/21 15:31 MB [id number]) Physical Therapy Assessment Goals 3 [employer] Librarian Goal (LTG) Pt will gait train at least 1500 feet without AD in 6 minutes to improve community ambulation by the end of 7 treatments. 09/11/21: Pt gait trains 1566 feet in 6 minutes today performing clockwise gait in gym and hallways. Improvement in speed and he does have some ataxia, no LOB or running into objects, cues to open fingers while keeping hands big. Occ left arm rigid and extended and self-corrected, superv asst LTG Duration Met 2 [employer] Librarian Goal (LTG) Pt will perform 12 reps sit to stand without UE support in 30 sec with controlled sit to stand movement and no LOB to improve transfers by the end of 7 treatments. 09/11/21: Pt performs 12 reps sit to degreasing solution mixer 30 sec today without UE support LTG Duration Met 1 [employer] Librarian Goal (LTG) Pt will perform BIG exercises and and walking with superv from to improve amplitude of movement, gait and balance by end of 7 treatments. 09/11/21: Pt is performing his PT approved 4 sitting BIG exercises today LTG Duration Met Assessment Summary Assessment Pt has reached the end of his LSVT BIG course. He improved a lot with gait and exercise performance. He does fatigue quickly and has intermittent regularity of taking his medications. His could be more supportive in his BIG walking and tends to state that the dog cries if they both leave. PT ed that walking the dog with his walker does not count as BIG walking as he cannot do this without AD or work on mandi and BIG posture. He might benefit from a PT course for his left knee pain. PT is concerned about medication compliance as far as timing. He will benefit from a BIG refresher in 3-6 months. Will d/c PT. Physical Therapy Plan Other Referrals/Consults Referrals/Consults Recommended OPPT for left knee pain in future BIG refresher in 3-6 months (2 weeks of PT for 3-4x/wk to review program) Discharge Physical Therapy Discharge Reasons Goals Met
== END 2021-12-26 09:53 ==
LOC: PHYS 14:15
PROVIDERS: PCP Family Medicine; Referring Provider Psychiatry & Neurology Neurology; Visit Provider Psychiatry & Neurology Neurology
DX: G20 Parkinson's disease (principal)
CPT/HCPCS: 97110; 97116; 97163; 97530; 97535

== ENCOUNTER 2022-02-02 10:53 | Emergency (ER) | payer MEDICARE, OTHER, SELFPAY ==
[2020-06-05 16:18] VITALS: BMI 25.8
[2022-02-02] VITALS (14 sets, daily range): BP systolic 150–217; BP diastolic 70–102; PULSE 55–69; RESP 12–20; TEMP 36.3–36.4; O2SAT 94–97
--- NOTE | 2022-02-02 11:13 | DI.RAD.S_ITS ---
PROCEDURE: XR CHEST 1V INDICATIONS: chest pain TECHNIQUE: One view of the chest was acquired. COMPARISON: [facility], CR, XR CHEST 1V, 12/30/2020, 6:53. FINDINGS: Surgical changes and devices: Left chest wall neural stimulator position is unchanged. Lungs and pleura: Lungs are clear. No pleural effusions or pneumothorax. Mediastinum: Mediastinal contours appear normal. Heart size is normal. Bones and chest wall: No suspicious bony lesions. Overlying soft tissues appear unremarkable. IMPRESSION: No acute cardiopulmonary pathology. Dictated by: Brenton Turner M.D. on 02/02/2022 at 12:28 Approved by: Brenton Turner M.D. on 02/02/2022 at 12:28
[2022-02-02] MEDS: ASPIRIN 81 MG CHEW TAB 324 MG PO (11:21)
[2022-02-02 11:23] LABS: INR 1.1 (0.9-1.3); Prothrombin Time 12.7 SECONDS (10.1-12.7)
[2022-02-02 11:26] LABS: PTT Partial Thromboplastin Tim 28 SECONDS (26.4-36.2)
[2022-02-02 11:31] LABS: Alanine Aminotransferase 4 IU/L (<50); Albumin 4.2 g/dL (3.5-5.0); Albumin Globulin Ratio 1.4 (1.0-2.8); Alkaline Phosphatase 66 U/L (38-126); Aspartate Aminotransferase 19 IU/L (17-59); BUN Creatinine Ratio 26.4 (6-22); Bilirubin Total 0.9 mg/dL (0.2-1.3); Blood Urea Nitrogen 23 mg/dL (9-20); Calcium 9.1 mg/dL (8.4-10.2); Carbon Dioxide 34 mmol/L (22-32); Chloride 104 mmol/L (98-107); Creatine Kinase 49 U/L (55-170); Estimated Glomerular Filt Rate > 60.0 mL/min (>60); Glucose 103 mg/dL (80-110); HEMOLYSIS < 15 (0-50); Lipase 62 U/L (23-300); Magnesium 2.3 mg/dL (1.6-2.3); Potassium 4.1 mmol/L (3.4-5.1); Sodium 139 mmol/L (137-145); Total Protein 7.2 g/dL (6.3-8.2)
[2022-02-02 11:42] LABS: Troponin I < 0.012 ng/mL (0.01-0.034)
--- NOTE | 2022-02-02 11:49 | RT ---
DESPITE ATTEMPTING REGULAR AND REVERSAL EKG SETUPS, EKG WILL NOT RATE AND COST ANALYST DUE TO PT'S STIMULATOR. PT'S FAMILY MEMBER STATES IT CANNOT BE TURNED OFF. DR. BOCANEGRA UPDATED. EKG ORDER CANCELED PER VERBAL DR. SCOTT.
[2022-02-02 11:52] LABS: Hematocrit 40.3 % (41-53); Hemoglobin 13.7 g/dL (13.5-17.5); Lymphocytes Percent Auto 14.9 % (25-40); Mean Corpuscular Hemoglobin 29.6 PG (26-34); Platelet Count 155 X10^3/uL (150-400); Red Blood Cell Count 4.64 X10^6/uL (4.5-5.9); Red Cell Distribution Width 13.4 % (11.6-14.8); White Blood Cell Count 4.6 X10^3/uL (4.5-11.0)
[2022-02-02 11:53] LABS: Add Manual Diff / Slide Review NO; Basophils Percent Auto 0.5 % (0-2); Eosinophils Percent Auto 4.1 % (2-4); Monocytes Percent Auto 8.5 % (3-14)
[2022-02-02] MEDS: NITROGLYCERIN 0.4 MG SL TAB SL (12:08)
--- NOTE | 2022-02-02 12:30 | ED_ITS ---
HPI - Chest Pain General Chief Complaint: Chest Pain Stated Complaint: chest pains Time Seen by Provider: 02/02/22 11:17 Source: patient and family Mode of arrival: Ambulatory Limitations: no limitations History of Present Illness HPI narrative: Patient is a 76-year-old male with history of hairy cell leukemia, Parkinson's with a neurostimulator, hypertension presenting today with chest discomfort. He says he woke up this morning with chest discomfort and heaviness. He notes that blood pressure was quite elevated with a blood pressure in the 70s which is abnormal for him. Pain did not radiate he did not notice any shortness of breath. Decided to come to the emergency department. When he arrived blood p ressure with noted to be very elevated 217/102. Have a at that time he is no longer having chest discomfort. Respiratory tried multiple times to get an EKG but they were unsuccessful due to his neurostimulator. He has no known history of coronary artery disease. He states that he had a stress test a few years ago. Related Data Home Medications Medication Instructions Recorded Confirmed carbidopa ER 50 mg-levodopa 200 mg 1 tab PO QID 04/08/18 04/14/21 tablet,extended release rutin 500 mg tablet 450 mg PO QAM 06/19/18 04/14/21 acetaminophen 325 mg tablet 325 mg PO Q6H PRN 06/26/18 04/14/21 (Tylenol) Senokot-S 06/05/20 04/14/21 omeprazole 20 mg PO DAILY 06/05/20 04/14/21 carbidopa 25 mg-levodopa 100 mg 25 - 100 tab PO QID PRN tab 07/14/20 04/14/21 disintegrating tablet metoprolol tartrate 25 mg tablet 12.5 mg PO BID 06/08/21 06/08/21 Previous Rx's Medication Instructions Recorded Disabled Parking #1 each 03/05/19 triamcinolone acetonide 0.1 % 1 applictn TOP BID #30 gram 07/14/20 topical cream losartan 50 mg tablet 50 mg PO BID #180 tab 02/02/21 tamsulosin 0.4 mg capsule 0.4 mg PO BEDTIME #90 cap 02/02/21 Allergies Allergy/AdvReac Type Severity Reaction Status Date / Time adhesive tape Allergy Intermediate Blister Verified 04/14/21 15:39 cefuroxime Allergy Mild rash/ Verified 04/14/21 15:39 itching codeine [CODEINE] Allergy Mild NAUSEA Verified 04/14/21 15:39 clindamycin AdvReac N/V Verified 04/14/21 15:39 Review of Systems Review of Systems Narrative: GENERAL: Denies chills, fatigue, malaise, fever, sweats, travel HEENT: Denies sinus pain, ear pain, sore throat, difficulty swallowing, neck p ain RESPIRATORY: Denies dyspnea, cough, wheezing, hemoptysis, sputum. CARDIOVASCULAR see HPI GASTROINTESTINAL: Denies nausea, vomiting, abdominal pain, diarrhea, constipation, melena. : Denies dysuria, frequency, incontinence, hematuria, urinary retention, flank pain. MUSCULOSKELETAL: Denies weakness, joint pain, or bony pain SKIN: No rash, no erythema, no pruritus NEUROLOGIC:+ Parkinson's see HPI PSYCHIATRIC: No concerning psychosocial issues. 12 point review of systems is negative except for those stated above and HPI Patient History Medical History Chronic low back pain with sciatica CVA (cerebral vascular accident) Hairy cell leukemia Headache Hypertension Paresthesias in left hand Parkinsons disease Surgical History History of tonsillectomy S/P deep brain stimulator placement S/P TURP Social History household members: spouse Smoking Status: Former smoker alcohol intake: current substance use type: does not use Smoking Status: Former smoker alcohol intake frequency: holidays/special occasions only Substance Use Type: does not use Exam Initial Vital Signs Initial Vital Signs: Vital Signs Temperature 97.4 F L 02/02/22 11:00 Pulse Rate 69 02/02/22 11:00 Respiratory Rate 18 02/02/22 11:00 Blood Pressure 217/102 H 02/02/22 11:00 Pulse Oximetry 94 02/02/22 11:00 GENERAL: Alert well-appearing 76-year-old female HEENT: Head atraumatic,EOMI, pupils reactive, face symmetric, moist mucous membranes CARDIOVASCULAR: Regular rate and rhythm without murmurs, rubs or gallops. RESPIRATORY: Breath sounds equal bilaterally, no wheezes rales or rhonchi. ABDOMEN: Soft, nontender. Normoactive bowel sounds all 4 quadrants. No g uarding or rebound. EXTREMITIES: Normal range of motion, no clubbing or edema. Neurovascularly inta ct NEUROLOGICAL: Alert and oriented x4.Normal gait and speech. SKIN: Warm, dry, no laceration, no petechiae, no rashes or lesions. Course Orders Ordered: ED Orders 02/02/22 11:05 Complete Blood Count AUTO DIFF Stat Comprehensive Metabolic Panel Stat Lipase Stat Magnesium Stat Partial Thromboplastin Time Stat Prothrombin Time INR Stat Troponin & CK Cardiac Panel Stat 02/02/22 11:13 XR chest 1V Stat 02/02/22 14:19 Trop I [Troponin I] Stat Discontinued Medications Aspirin (Aspirin 81 Mg Chew Tab) 324 mg PO NOW ONE Stop: 02/02/22 11:14 Last Admin: 02/02/22 11:21 Dose: 324 mg Documented by: GABRIELLE Nitroglycerin (Nitroglycerin 0.4 Mg Sl Tab) 0.4 mg SL [id number] PRN PRN Reason: Chest Pain Last Admin: 02/02/22 12:08 Dose: 0.4 mg Documented by: GABRIELLE Vital Signs Vital signs: Vital Signs - 8 hr 02/02/22 12:08 02/02/22 12:21 02/02/22 12:30 Temperature Pulse Rate 64 69 59 L Respiratory Rate 17 17 Blood Pressure 203/89 H 178/82 H 188/75 H Pulse Oximetry 95 95 02/02/22 12:46 02/02/22 13:00 02/02/22 13:45 Temperature Pulse Rate 59 L 58 L 56 L Respiratory Rate 16 12 13 Blood Pressure 170/79 H 156/74 H 150/70 H Pulse Oximetry 97 97 96 02/02/22 14:00 02/02/22 14:15 02/02/22 14:30 Temperature Pulse Rate 56 L 59 L 55 L Respiratory Rate 18 17 19 Blood Pressure 159/76 H 152/74 H Pulse Oximetry 97 97 96 02/02/22 14:45 02/02/22 15:00 02/02/22 15:04 Temperature Pulse Rate 56 L 61 63 Respiratory Rate 18 18 18 Blood Pressure 189/81 H Pulse Oximetry 96 96 97 02/02/22 16:25 Temperature 97.6 F Pulse Rate 67 Respiratory Rate 20 Blood Pressure 175/79 H Pulse Oximetry 97 MDM - Chest Pain Lab Data Result diagrams: 02/02/22 11:05 02/02/22 11:05 Labs: Lab Results 02/02/22 02/02/22 02/02/22 Range/Units 11:05 11:05 11:05 WBC 4.6 (4.5-11.0) X10^3/uL RBC 4.64 (4.5-5.9) X10^6/uL Hgb 13.7 (13.5-17.5) g/dL Hct 40.3 L (41-53) % MCV 87.0 (80-100) fL MCH 29.6 (26-34) PG MCHC 34.0 (30-36) % RDW 13.4 (11.6-14.8) % Plt Count 155 (150-400) X10^3/uL Neut % (Auto) 72.0 (50-75) % Lymph % (Auto) 14.9 L (25-40) % [place] % (Auto) 8.5 (3-14) % Eos % (Auto) 4.1 H (2-4) % Baso % (Auto) 0.5 (0-2) % Lymph # (Auto) Not Reportable [place] # (Auto) Not Reportable Baso # (Auto) Not Reportable PT 12.7 (10.1-12.7) SECONDS INR 1.1 (0.9-1.3) APTT 28 (26.4-36.2) SECONDS Sodium 139 (137-145) mmol/L Potassium 4.1 (3.4-5.1) mmol/L Chloride 104 (98-107) mmol/L Carbon Dioxide 34 H (22-32) mmol/L BUN 23 H (9-20) mg/dL Creatinine 0.87 (0.66-1.25) mg/dL Estimated GFR > 60.0 (>60) mL/min BUN/Creatinine Ratio 26.4 H (6-22) Glucose 103 (80-110) mg/dL Calcium 9.1 (8.4-10.2) mg/dL Magnesium 2.3 (1.6-2.3) mg/dL Total Bilirubin 0.9 (0.2-1.3) mg/dL AST 19 (17-59) IU/L ALT 4 (<50) IU/L Alkaline Phosphatase 66 (38-126) U/L Total Creatine Kinase 49 L (55-170) U/L CK-MB (CK-2) TNP CK-MB (CK-2) Rel Index TNP Troponin I < 0.012 (0.01-0.034) ng/mL Total Protein 7.2 (6.3-8.2) g/dL Albumin 4.2 (3.5-5.0) g/dL Globulin 3.0 (1.7-4.1) g/dL Albumin/Globulin Ratio 1.4 (1.0-2.8) Lipase 62 (23-300) U/L 02/02/22 Range/Units 14:19 WBC (4.5-11.0) X10^3/uL RBC (4.5-5.9) X10^6/uL Hgb (13.5-17.5) g/dL Hct (41-53) % MCV (80-100) fL MCH (26-34) PG MCHC (30-36) % RDW (11.6-14.8) % Plt Count (150-400) X10^3/uL Neut % (Auto) (50-75) % Lymph % (Auto) (25-40) % [place] % (Auto) (3-14) % Eos % (Auto) (2-4) % Baso % (Auto) (0-2) % Lymph # (Auto) [place] # (Auto) Baso # (Auto) PT (10.1-12.7) SECONDS INR (0.9-1.3) APTT (26.4-36.2) SECONDS Sodium (137-145) mmol/L Potassium (3.4-5.1) mmol/L Chloride (98-107) mmol/L Carbon Dioxide (22-32) mmol/L BUN (9-20) mg/dL Creatinine (0.66-1.25) mg/dL Estimated GFR (>60) mL/min BUN/Creatinine Ratio (6-22) Glucose (80-110) mg/dL Calcium (8.4-10.2) mg/dL Magnesium (1.6-2.3) mg/dL Total Bilirubin (0.2-1.3) mg/dL AST (17-59) IU/L ALT (<50) IU/L Alkaline Phosphatase (38-126) U/L Total Creatine Kinase (55-170) U/L CK-MB (CK-2) CK-MB (CK-2) Rel Index Troponin I < 0.012 (0.01-0.034) ng/mL Total Protein (6.3-8.2) g/dL Albumin (3.5-5.0) g/dL Globulin (1.7-4.1) g/dL Albumin/Globulin Ratio (1.0-2.8) Lipase (23-300) U/L Imaging Data Chest x-ray: Radiologist's Impression: PROCEDURE:? XR CHEST 1V ? INDICATIONS:? chest pain ? TECHNIQUE:? One view of the chest was acquired.? ? COMPARISON:? [facility], , XR CHEST 1V, 12/30/2020, 6:53. ? FINDINGS:? ? Surgical changes and devices:? Left chest wall neural stimulator position is unchanged.? ? Lungs and pleura:? Lungs are clear.? No pleural effusions or pneumothorax.? ? Mediastinum:? Mediastinal contours appear normal.? Heart size is normal.? ? Bones and chest wall:? No suspicious bony lesions.? Overlying soft tissues appear unremarkable.? ? IMPRESSION:? No acute cardiopulmonary pathology. ? ? Dictated by: Brenton Turner M.D. on 02/02/2022 at 12:28 ? ? ECG Data Interpretation: Unable to obtain due to neurostimulator (it would not print, or read) Normal sinus rhythm strips are in the chart and seen on the monitor MDM Narrative Medical decision making narrative: Multiple attempts to get in EKG unable to do so due to neurostimulator. Patient has 2- troponins. Blood pressure has come down. He is in sinus rhythm on the monitor which has been printed and put in his chart. He had a myocardial perfusion study in 2020 your ago it was read as low risk is without any evidence of ischemia. [address] Benitez. At this time blood pressure has come down is unable to get EKG. He will follow-up with patient about his blood pressure and possible cardiac testing. States that Parkinson's can cause both of these to be abnormal. Patient immediately stood up walked out to the waiting room were started having chest discomfort again is brought in blood pressure was elevated is. He was given nightly medications reassured. He started feeling better. Discharge Plan Departure Patient Disposition: Home Clinical Impression: Hypertension, Atypical chest pain Instructions: Essential Hypertension, DI for Atypical Chest Pain Activity Restrictions/Additional Instructions: *You have been diagnosed with hypertension atypical chest pain *What to do: At this time please follow-up with Dr. Raymundo. May need further cardiac testing or adjustments to her blood pressure medications. If at any time he should have worsening chest discomfort, or elevated blood pressure greater than 190/100 please return to the emergency department immediately. *Continue to take medications as directed *Follow up with your primary care provider in 2-3 days or call [phone] *Return to ER if you should have increasing chest discomfort headache numbness tingling weakness or any new, worsening or concerning symptoms Prescriptions: No Action carbidopa-levodopa 50-200 mg tablet extended release 1 tab PO QID 0RF Label Comments: patient states takes 2 to 5 daily. (DME) Disabled Parking 0 .ROUTE .MEDSUPPLY Qty: 1 0RF Rx Instructions: As directed tamsulosin 0.4 mg capsule 0.4 mg PO BEDTIME Qty: 90 3RF losartan 50 mg tablet 50 mg PO BID Qty: 180 3RF carbidopa-levodopa 25-100 mg tablet,disintegrating 25 - 100 tab PO QID PRN (Reason: parkinson's symptoms) 0RF triamcinolone acetonide 0.1 % cream 1 applictn TOP BID Qty: 30 5RF rutin 500 mg Tablet 450 mg PO QAM 0RF acetaminophen [Tylenol] 325 mg Tablet 325 mg PO Q6H PRN (Reason: Pain (Scale Score 1-3)) 0RF metoprolol tartrate 25 mg Tablet 12.5 mg PO BID 0RF omeprazole 20 mg 20 mg PO DAILY 0RF Senokot-S 0RF Rx Instructions: pt takes 8.6-50 mg Referrals: Anson Benitez MD [Primary Care Provider] -
[2022-02-02 15:00] LABS: Troponin I < 0.012 ng/mL (0.01-0.034)
== END 2022-02-02 16:27 | disposition home or self-care (01) ==
PROVIDERS: Emergency Provider Emergency Medicine; PCP Family Medicine
DX: I10 Essential (primary) hypertension (principal); R07.89 Other chest pain; Z87.891 Personal history of nicotine dependence
CPT/HCPCS: 36415; 71045; 80053; 82550; 83690; 83735; 84484; 85025; 85610; 85730; 99283

== ENCOUNTER 2022-02-06 22:50 | Emergency (ER) | payer MEDICARE, OTHER, SELFPAY ==
[2020-06-05 16:18] VITALS: BMI 25.8
[2022-02-06 23:00] VITALS: BP 252/112; PULSE 73; RESP 18; RESP 23; TEMP 37; O2SAT 97; BMI 25.8
--- NOTE | 2022-02-06 23:06 | DI.RAD.S_ITS ---
PROCEDURE: XR CHEST 1V INDICATIONS: chest pain TECHNIQUE: One view of the chest was acquired. COMPARISON: Located [facility], CR, XR CHEST 1V, 02/02/2022, 12:04. FINDINGS: Surgical changes and devices: Neurostimulator. Lungs and pleura: Lungs are clear. No pleural effusions or pneumothorax. Mediastinum: Mediastinal contours appear normal. Heart size is normal. Bones and chest wall: No suspicious bony lesions. Overlying soft tissues appear unremarkable. IMPRESSION: No acute cardiopulmonary disease process. Dictated by: Vanita Phan MD, PhD on 02/06/2022 at 23:29 Approved by: Vanita Phan MD, PhD on 02/06/2022 at 23:29
--- NOTE | 2022-02-06 23:07 | ED.CHESTPAIN ---
HPI - Chest Pain General Chief Complaint: Hypertension Stated Complaint: high blood pressure Time Seen by Provider: 02/06/22 23:02 Source: patient Mode of arrival: Ambulatory Limitations: no limitations Limitations: no limitations History of Present Illness HPI narrative: This is a 76-year-old male who comes with complaint of elevated blood pressure. Patient states he had the blood pressure in the 252/112 range at patient states he has had elevated blood pressures intermittently for the past 2 weeks. He does take losartan as well as metoprolol daily. He had his last dose at 8:00 p.m. he typically takes at 10:00 p.m.. He also takes carbidopa levodopa for his Parkinson's disease. Patient has a deep brain stimulator with the stimulator itself in his left upper chest which does prevent EKGs from being performed. They do not wish to turn it off again EKG. Patient has had some chest pressure at times but not currently. No shortness of breath. He has not had any headaches, no sudden vision changes. No new neurologic changes he does have Parkinson's has a tremor particularly of his left arm at times. He has some difficulty with gait and occasional slurring of his speech but these are all his typical symptoms. Patient denies fevers or chills. No nausea or vomiting. He noticed he was urinating more frequently in the last hour. No issues with bowel movements. He has not had any new numbness or tingling. He does take Tylenol regularly for pain. Patient sees primary care through the [place] and Dr. Benitez. He also follows with neurology regularly. He is a former smoker, occasional alcohol, no recreational drugs. His is at bedside. Related Data Home Medications Medication Instructions Recorded Confirmed carbidopa ER 50 mg-levodopa 200 mg 1 tab PO QID 04/08/18 04/14/21 tablet,extended release rutin 500 mg tablet 450 mg PO QAM 06/19/18 04/14/21 acetaminophen 325 mg tablet 325 mg PO Q6H PRN 06/26/18 04/14/21 (Tylenol) Senokot-S 06/05/20 04/14/21 omeprazole 20 mg PO DAILY 06/05/20 04/14/21 carbidopa 25 mg-levodopa 100 mg 25 - 100 tab PO QID PRN tab 07/14/20 04/14/21 disintegrating tablet metoprolol tartrate 25 mg tablet 12.5 mg PO BID 06/08/21 06/08/21 Previous Rx's Medication Instructions Recorded Disabled Parking #1 each 03/05/19 triamcinolone acetonide 0.1 % 1 applictn TOP BID #30 gram 07/14/20 topical cream losartan 50 mg tablet 50 mg PO BID #180 tab 02/02/21 tamsulosin 0.4 mg capsule 0.4 mg PO BEDTIME #90 cap 02/02/21 metoprolol succinate 50 mg 50 mg PO BID #20 tab 02/07/22 tablet,extended release 24 hr Allergies Allergy/AdvReac Type Severity Reaction Status Date / Time adhesive tape Allergy Intermediate Blister Verified 04/14/21 15:39 cefuroxime Allergy Mild rash/ Verified 04/14/21 15:39 itching codeine [CODEINE] Allergy Mild NAUSEA Verified 04/14/21 15:39 clindamycin AdvReac N/V Verified 04/14/21 15:39 Review of Systems Review of Systems ROS Unobtainable: All systems reviewed & are unremarkable except as noted in HPI and below Patient History Medical History Chronic low back pain with sciatica CVA (cerebral vascular accident) Hairy cell leukemia Headache Hypertension Paresthesias in left hand Parkinsons disease Surgical History History of tonsillectomy S/P deep brain stimulator placement S/P TURP Social History household members: spouse Smoking Status: Former smoker alcohol intake: current substance use type: does not use Smoking Status: Former smoker alcohol intake frequency: holidays/special occasions only Substance Use Type: does not use Exam Narrative Exam Narrative: GEN: well nourished, well appearing male, alert and oriented x 3, patient appears to be in mild distress. HEENT: Atraumatic, pupils are equal round reactive to light, extraocular movements are intact, nares are clear, TMs are clear with no fluid, there is no conjunctival pallor. Throat is clear without any exudates, erythema, tonsillar enlargement or uvular deviation HEART: Regular rate and rhythm without murmur, clicks, rubs. Pulses are equal in upper and lower extremities LUNGS:Lungs clear to auscultation, no wheezes, rales, crackles, chest moves symmetrically ABD:bowel sounds normal, soft, non-tender, no guarding, rebound, rigidity, no masses noted, no hepatosplenomegaly, no bruits or pulsatile mass. :No CVA tenderness MSCL: Non-tender, no muscle atrophy, muscles strength 5/5 upper and lower extremities, full range of motion NEURO:CN 2-12 intact, sensation normal, patient does have tremor particularly left upper extremity. Clear speech. Initial Vital Signs Initial Vital Signs: Vital Signs Temperature 98.6 F 02/06/22 23:00 Pulse Rate 73 02/06/22 23:00 Respiratory Rate 18 02/06/22 23:00 Blood Pressure 252/112 H 02/06/22 23:00 Pulse Oximetry 97 02/06/22 23:00 Course Orders Ordered: ED Orders 02/06/22 23:05 BNP [NT-proBNP (BNP-Adult 18+)] Stat Complete Blood Count AUTO DIFF Stat Comprehensive Metabolic Panel Stat Lipase Stat Magnesium Stat Troponin & CK Cardiac Panel Stat 02/06/22 23:06 XR chest 1V Stat EKG-12 Lead Stat 02/06/22 23:34 CT head/brain wo con Stat Discontinued Medications Labetalol HCl (Labetalol 20 Mg/4 Ml Syringe) 10 mg IV NOW ONE Stop: 02/06/22 23:35 Last Admin: 02/06/22 23:40 Dose: 10 mg Documented by: KATIE Labetalol HCl (Labetalol 20 Mg/4 Ml Syringe) 10 mg IV NOW ONE Stop: 02/07/22 01:33 Last Admin: 02/07/22 01:37 Dose: 10 mg Documented by: KATIE Metoprolol Tartrate (Metoprolol Ir 25 Mg Tablet) 25 mg PO NOW ONE Stop: 02/07/22 00:22 Last Admin: 02/07/22 00:27 Dose: 25 mg Documented by: KATIE Reevaluation(s) Reevaluation #1: Patient BP down to 175 but was at 190 most recently. Plan for an additional dose of metoprolol oral to maintain below 180's. Time: 00:30 Reevaluation #2: Patient been up to bathroom. BP improved. Vital Signs Vital signs: Vital Signs - 8 hr 02/06/22 23:00 02/06/22 23:19 02/06/22 23:30 Temperature 98.6 F Pulse Rate 73 69 70 Respiratory Rate 23 24 21 Blood Pressure 252/112 H 237/105 H Pulse Oximetry 97 97 97 02/06/22 23:43 02/06/22 23:44 02/06/22 23:55 Temperature Pulse Rate 67 73 80 Respiratory Rate 23 22 34 H Blood Pressure 192/88 H 183/80 H Pulse Oximetry 96 96 96 02/07/22 00:00 02/07/22 00:06 02/07/22 00:10 Temperature Pulse Rate 66 65 65 Respiratory Rate 17 20 20 Blood Pressure 181/83 H 194/85 H 175/80 H Pulse Oximetry 96 96 97 02/07/22 00:14 02/07/22 00:15 02/07/22 00:20 Temperature Pulse Rate 65 65 64 Respiratory Rate 19 20 Blood Pressure 175/80 H 182/85 H 191/78 H Pulse Oximetry 96 96 02/07/22 00:25 02/07/22 00:30 02/07/22 00:35 Temperature Pulse Rate 68 67 65 Respiratory Rate 24 20 34 H Blood Pressure 193/86 H 181/75 H 168/81 H Pulse Oximetry 96 96 97 02/07/22 00:40 02/07/22 00:45 02/07/22 00:51 Temperature Pulse Rate 64 63 64 Respiratory Rate 20 20 18 Blood Pressure 183/81 H 171/78 H 204/89 H Pulse Oximetry 97 97 96 02/07/22 00:55 02/07/22 01:02 02/07/22 01:03 Temperature Pulse Rate 63 74 63 Respiratory Rate 19 19 19 Blood Pressure 182/81 H 199/93 H Pulse Oximetry 97 96 95 02/07/22 01:14 02/07/22 01:15 02/07/22 01:30 Temperature Pulse Rate 61 62 69 Respiratory Rate 20 20 26 H Blood Pressure 199/89 H Pulse Oximetry 98 97 89 L 02/07/22 01:31 02/07/22 01:37 02/07/22 01:45 Temperature Pulse Rate 64 65 Respiratory Rate 21 21 Blood Pressure 202/81 H 202/81 H 190/81 H Pulse Oximetry 95 96 02/07/22 02:00 02/07/22 02:11 03/16/22 02:16 Temperature Pulse Rate 61 61 74 Respiratory Rate 19 41 H Blood Pressure 191/90 H 191/90 H 199/86 H Pulse Oximetry 96 95 02/07/22 02:30 02/07/22 02:46 Temperature Pulse Rate 61 64 Respiratory Rate 18 39 H Blood Pressure 176/82 H 198/94 H Pulse Oximetry 96 96 MDM - Chest Pain Lab Data Result diagrams: 02/06/22 23:05 02/06/22 23:05 Labs: Lab Results 02/06/22 02/06/22 02/06/22 Range/Units 23:05 23:05 23:05 WBC 5.3 (4.5-11.0) X10^3/uL RBC 4.60 (4.5-5.9) X10^6/uL Hgb 14.0 (13.5-17.5) g/dL Hct 39.5 L (41-53) % MCV 85.9 (80-100) fL MCH 30.4 (26-34) PG MCHC 35.4 (30-36) % RDW 13.6 (11.6-14.8) % Plt Count 166 (150-400) X10^3/uL Neut % (Auto) 76.1 H (50-75) % Lymph % (Auto) 12.3 L (25-40) % [place] % (Auto) 8.0 (3-14) % Eos % (Auto) 3.2 (2-4) % Baso % (Auto) 0.4 (0-2) % Neut # (Auto) 4000 (4817-7535) /uL Lymph # (Auto) 600 L (9404-6151) /uL [place] # (Auto) 400 (0-900) /uL Eos # (Auto) 200 (0-450) /uL Baso # (Auto) 0 (0-100) /uL Sodium 139 (137-145) mmol/L Potassium 3.8 (3.4-5.1) mmol/L Chloride 100 (98-107) mmol/L Carbon Dioxide 30 (22-32) mmol/L BUN 20 (9-20) mg/dL Creatinine 0.90 (0.66-1.25) mg/dL Estimated GFR > 60.0 (>60) mL/min BUN/Creatinine Ratio 22.2 H (6-22) Glucose 114 H (80-110) mg/dL Calcium 9.1 (8.4-10.2) mg/dL Magnesium 2.2 (1.6-2.3) mg/dL Total Bilirubin 0.6 (0.2-1.3) mg/dL AST 17 (17-59) IU/L ALT 4 (<50) IU/L Alkaline Phosphatase 61 (38-126) U/L Total Creatine Kinase 55 (55-170) U/L CK-MB (CK-2) TNP CK-MB (CK-2) Rel Index TNP Troponin I < 0.012 (0.01-0.034) ng/mL NT-Pro-B Natriuret Pep 240 H (<125) pg/mL Total Protein 7.2 (6.3-8.2) g/dL Albumin 4.3 (3.5-5.0) g/dL Globulin 2.9 (1.7-4.1) g/dL Albumin/Globulin Ratio 1.5 (1.0-2.8) Lipase 97 D (23-300) U/L Imaging Data CT scan - head: Radiologist's Impression: [address] [address] [address] Scan Report Signed Patient: Olu Riavs V MR#: [id number] : 1945 Acct:[id number] Age/Sex: 76 / M Date of Service: 02/06/22 Loc: Accession Number: [id number] ?? Procedure: CT head/brain wo con Ordering Provider: Kellie Gambino D.O. PROCEDURE:? CT HEAD/BRAIN WO CON ? INDICATIONS:? hypertension, chest pain ? TECHNIQUE:? Noncontrast 4.5 mm thick angled axial sections acquired from the foramen magnum to the vertex, with coronal and sagittal reformats.? For radiation dose reduction, the following was used:? automated exposure control, adjustment of mA and/or kV according to patient size.? ? COMPARISON:? [facility], CT, CT HEAD/BRAIN WO CON, 06/05/2020, 14:54. ? FINDINGS:? Image quality:? Excellent.? ? CSF spaces:? Basal cisterns are patent.? No extra-axial fluid collections.? The ventricles are symmetric in size and shape.? ? Brain:? Bilateral thalamic neural stimulators are stable in position.? No intracranial bleeds or masses.? There is cerebral volume loss for age, with resultant ventricular and sulcal prominence.? There are periventricular and deep white matter chronic small vessel ischemic changes.? There is intracranial internal carotid artery atherosclerosis.? ? Skull and face:? Calvarium and visualized facial bones appear intact, without suspicious lesions.? ? Sinuses:? Visualized sinuses and mastoids are clear.? ? IMPRESSION:? No acute intracranial disease process. ? ? Dictated by: Vanita Phan MD, PhD on 02/07/2022 at 0:16 ? ? Approved by: Vanita Phan MD, PhD on 02/07/2022 at 0:18 Chest x-ray: Radiologist's Impression: [address] [address] XRay Report Signed Patient: Olu Rivas V MR#: [id number] : 1945 Acct:[id number] Age/Sex: 76 / M Date of Service: 02/06/22 Loc: ED Accession Number: [id number] ?? Procedure: XR chest 1V Ordering Provider: Kellie Gambino D.O. PROCEDURE:? XR CHEST 1V ? INDICATIONS:? chest pain ? TECHNIQUE:? One view of the chest was acquired.? ? COMPARISON:? [facility], , XR CHEST 1V, 02/02/2022, 12:04. ? FINDINGS:? ? Surgical changes and devices:? Neurostimulator. ? Lungs and pleura:? Lungs are clear.? No pleural effusions or pneumothorax.? ? Mediastinum:? Mediastinal contours appear normal.? Heart size is normal.? ? Bones and chest wall:? No suspicious bony lesions.? Overlying soft tissues appear unremarkable.? ? IMPRESSION:? No acute cardiopulmonary disease process. ? ? Dictated by: Vanita Phan MD, PhD on 02/06/2022 at 23:29 ? ? Approved by: Vanita Phan MD, PhD on 02/06/2022 at 23:29?? ECG Data Interpretation: Unable to obtain EKG after numerous attempts including right-sided and posterior. MDM Narrative Medical decision making narrative: This is a 76-year-old male who has complaint of elevated blood pressure. Patient has been checking his blood pressure regularly at home and consistently getting systolics in the 200-250 range. Patient has had issues for the last 2 weeks but has not had persistent issues before then he has known hypertension he is normally metoprolol losartan. His head CT, chest x-ray and lab work are reassuring. His EKG we were unable to obtain as patient deep brain stimulator interferes with a capture even after multiple tense. This was a problem on his last visit as well. Patient and family are clear they do not wish to turn off his stimulator in order to get an EKG which is understandable. Patient did have some improvement with labetalol he was given a dose of oral metoprolol and had have a reduction in his blood pressure. Discussed I do not want to completely normalize his blood pressure is he has been so high recently. Plan to increase his daily metoprolol dose and follow-up with primary care with monitoring of BP at home. Discharge Plan Departure Patient Disposition: Home Clinical Impression: Hypertension Instructions: DI for High Blood Pressure Activity Restrictions/Additional Instructions: Follow up with your physician for recheck. I would recommend increasing your dose of metoprolol to 50mg (2 tablets) twice daily. Start this with your morning dose at 10am. Continue your losartan as prescribed but if necessary it can be adjusted also. Prescription sent to [facility] in [place]. Please return for headaches, chest pain, shortness of breath, vomiting, lightheadedness or passing out, swelling in your extremities or other new or concerning symptoms. Prescriptions: New metoprolol succinate 50 mg tablet extended release 24 hr 50 mg PO BID Qty: 20 0RF No Action carbidopa-levodopa 50-200 mg tablet extended release 1 tab PO QID 0RF Label Comments: patient states takes 2 to 5 daily. (DME) Disabled Parking 0 .ROUTE .MEDSUPPLY Qty: 1 0RF Rx Instructions: As directed tamsulosin 0.4 mg capsule 0.4 mg PO BEDTIME Qty: 90 3RF losartan 50 mg tablet 50 mg PO BID Qty: 180 3RF carbidopa-levodopa 25-100 mg tablet,disintegrating 25 - 100 tab PO QID PRN (Reason: parkinson's symptoms) 0RF triamcinolone acetonide 0.1 % cream 1 applictn TOP BID Qty: 30 5RF rutin 500 mg Tablet 450 mg PO QAM 0RF acetaminophen [Tylenol] 325 mg Tablet 325 mg PO Q6H PRN (Reason: Pain (Scale Score 1-3)) 0RF metoprolol tartrate 25 mg Tablet 12.5 mg PO BID 0RF omeprazole 20 mg 20 mg PO DAILY 0RF Senokot-S 0RF Rx Instructions: pt takes 8.6-50 mg Referrals: Anson Benitez MD [Primary Care Provider] -
[2022-02-06 23:19] VITALS: BP 237/105; PULSE 69; RESP 24; O2SAT 97
[2022-02-06 23:20] LABS: Add Manual Diff / Slide Review NO; Basophils Absolute Auto 0 /uL (0-100); Basophils Percent Auto 0.4 % (0-2); Eosinophils Absolute Auto 200 /uL (0-450); Eosinophils Percent Auto 3.2 % (2-4); Hematocrit 39.5 % (41-53); Lymphocytes Absolute Auto 600 /uL (1100-4500); Lymphocytes Percent Auto 12.3 % (25-40); Mean Corpuscular HGB Conc 35.4 % (30-36); Mean Corpuscular Hemoglobin 30.4 PG (26-34); Mean Corpuscular Volume 85.9 fL (80-100); Monocytes Absolute Auto 400 /uL (0-900); Neutrophils Absolute Auto 4000 /uL (1500-7000); Neutrophils Percent Auto 76.1 % (50-75); Platelet Count 166 X10^3/uL (150-400); Red Cell Distribution Width 13.6 % (11.6-14.8); White Blood Cell Count 5.3 X10^3/uL (4.5-11.0)
[2022-02-06 23:25] LABS: Alanine Aminotransferase 4 IU/L (<50); Albumin 4.3 g/dL (3.5-5.0); Albumin Globulin Ratio 1.5 (1.0-2.8); Alkaline Phosphatase 61 U/L (38-126); Aspartate Aminotransferase 17 IU/L (17-59); BUN Creatinine Ratio 22.2 (6-22); Bilirubin Total 0.6 mg/dL (0.2-1.3); Blood Urea Nitrogen 20 mg/dL (9-20); Calcium 9.1 mg/dL (8.4-10.2); Carbon Dioxide 30 mmol/L (22-32); Chloride 100 mmol/L (98-107); Creatine Kinase 55 U/L (55-170); Estimated Glomerular Filt Rate > 60.0 mL/min (>60); Globulin 2.9 g/dL (1.7-4.1); Glucose 114 mg/dL (80-110); HEMOLYSIS 22 (0-50); Lipase 97 U/L (23-300); Magnesium 2.2 mg/dL (1.6-2.3); Potassium 3.8 mmol/L (3.4-5.1); Sodium 139 mmol/L (137-145); Total Protein 7.2 g/dL (6.3-8.2)
[2022-02-06 23:30] VITALS: PULSE 70; RESP 21; O2SAT 97
--- NOTE | 2022-02-06 23:34 | DI.CT.S_ITS ---
PROCEDURE: CT HEAD/BRAIN WO CON INDICATIONS: hypertension, chest pain TECHNIQUE: Noncontrast 4.5 mm thick angled axial sections acquired from the foramen magnum to the vertex, with coronal and sagittal reformats. For radiation dose reduction, the following was used: automated exposure control, adjustment of mA and/or kV according to patient size. COMPARISON: [facility], CT, CT HEAD/BRAIN WO CON, 06/05/2020, 14:54. FINDINGS: Image quality: Excellent. CSF spaces: Basal cisterns are patent. No extra-axial fluid collections. The ventricles are symmetric in size and shape. Brain: Bilateral thalamic neural stimulators are stable in position. No intracranial bleeds or masses. There is cerebral volume loss for age, with resultant ventricular and sulcal prominence. There are periventricular and deep white matter chronic small vessel ischemic changes. There is intracranial internal carotid artery atherosclerosis. Skull and face: Calvarium and visualized facial bones appear intact, without suspicious lesions. Sinuses: Visualized sinuses and mastoids are clear. IMPRESSION: No acute intracranial disease process. Dictated by: Vanita Phan MD, PhD on 02/07/2022 at 0:16 Approved by: Vanita Phan MD, PhD on 02/07/2022 at 0:18
[2022-02-06 23:37] LABS: Troponin I < 0.012 ng/mL (0.01-0.034)
[2022-02-06] MEDS: LABETALOL 20 MG/4 ML SYRINGE 10 MG IV (23:40)
[2022-02-06 23:43] VITALS: PULSE 67; RESP 23; O2SAT 96
[2022-02-06 23:44] VITALS: BP 192/88; PULSE 73; RESP 22; O2SAT 96
[2022-02-06 23:55] VITALS: BP 183/80; PULSE 80; RESP 34; O2SAT 96
[2022-02-06 23:56] LABS: NT-proBNP (BNP-Adult 18+) 240 pg/mL (<125)
[2022-02-07] VITALS (26 sets, daily range): BP systolic 168–204; BP diastolic 75–94; PULSE 61–74; RESP 17–41; O2SAT 89–98
[2022-02-07] MEDS: METOPROLOL IR 25 MG TABLET PO (00:27)
[2022-02-07] MEDS: LABETALOL 20 MG/4 ML SYRINGE 10 MG IV (01:37)
== END 2022-02-07 02:58 | disposition home or self-care (01) ==
PROVIDERS: Emergency Provider Emergency Medicine; PCP Family Medicine
DX: I10 Essential (primary) hypertension (principal); Z79.899 Other long term (current) drug therapy; Z87.891 Personal history of nicotine dependence; G20 Parkinson's disease
CPT/HCPCS: 36415; 70450; 71045; 80053; 82550; 83690; 83735; 83880; 84484; 85025; 96374; 96376; 99284

== ENCOUNTER → 2022-07-09 12:04 | Outpatient (CLI) | payer MEDICARE, OTHER, SELFPAY ==
[2020-06-05 16:18] VITALS: BMI 25.8
--- NOTE | 2022-07-09 12:06 | DI.US.S_ITS ---
PROCEDURE: US ABDOMEN LIMITED INDICATIONS: HAIRY CELL LEUKEMIA; POSSIBLE HEPATOSPLENOMEGALY TECHNIQUE: Real-time focused scanning was performed of the abdomen, with image documentation. COMPARISON: [facility], CT, CT ABDOMEN PELVIS W CON, 05/28/2019, 14:31. FINDINGS: The spleen has a maximum length of 11 cm, with a calculated volume of 157 cc. The liver is mildly enlarged at 18.4 cm. The liver demonstrates a normal echotexture. Within the right lobe of the liver, there is a simple cyst seen that measures up to 1.4 cm. IMPRESSION: Normal size spleen. Mildly enlarged liver, with a normal overall echotexture. Incidental note is made of: Simple appearing right liver cyst Dictated by: Navin Bright M.D. on 07/09/2022 at 13:58 Approved by: Navin Bright M.D. on 07/09/2022 at 14:00
== END ==
PROVIDERS: PCP Family Medicine; Referring Provider Internal Medicine Hematology & Oncology; Visit Provider Internal Medicine Hematology & Oncology
DX: C91.40 Hairy cell leukemia not having achieved remission (principal); K76.89 Other specified diseases of liver; R16.0 Hepatomegaly, not elsewhere classified
CPT/HCPCS: 76705

== ENCOUNTER 2022-10-26 20:00 | Inpatient (IN) | payer MEDICARE, OTHER, SELFPAY ==
[2020-06-05 16:18] VITALS: BMI 25.8
[2022-10-26] VITALS (8 sets, daily range): BP systolic 177–211; BP diastolic 80–119; PULSE 64–76; RESP 18–23; TEMP 36.5; O2SAT 95–97; BMI 22.9
--- NOTE | 2022-10-26 20:19 | DI.RAD.S_ITS ---
PROCEDURE: XR CHEST 1V INDICATIONS: chest pain TECHNIQUE: One view of the chest was acquired. COMPARISON: [facility], CR, XR CHEST 1V, 02/06/2022, 23:07. FINDINGS: Surgical changes and devices: Neurostimulator device redemonstrated in the left hemithorax. Lungs and pleura: No acute consolidation within the visualized lungs. There is a nodular opacity within the right upper lung zone measuring up to 1.1 cm. No pleural effusions or pneumothorax. Mediastinum: Mediastinal contours appear normal. Heart size is normal. Bones and chest wall: No suspicious bony lesions. Overlying soft tissues appear unremarkable. IMPRESSION: 1. Nodular opacity within the right upper lung zone suspicious for a pulmonary nodule. Recommend a follow-up nonemergent chest CT for further evaluation. Dictated by: Kota Kuhn M.D. on 10/26/2022 at 22:59 Approved by: Kota Kuhn M.D. on 10/26/2022 at 23:01
--- NOTE | 2022-10-26 20:19 | DI.CT.S_ITS ---
PROCEDURE: CT HEAD/BRAIN WO CON INDICATIONS: headache TECHNIQUE: Noncontrast 4.5 mm thick angled axial sections acquired from the foramen magnum to the vertex, with coronal and sagittal reformats. For radiation dose reduction, the following was used: automated exposure control, adjustment of mA and/or kV according to patient size. COMPARISON: [facility], CT, CT HEAD/BRAIN WO CON, 02/06/2022, 23:39. FINDINGS: Image quality: Excellent. CSF spaces: Basal cisterns are patent. No extra-axial fluid collections. There is mild cerebral volume loss, with resultant ventricular and sulcal prominence. Brain: Bilateral thalamic neuro stimulators appear unchanged in position. No intracranial hemorrhage, mass, or mass effect. There are subcortical, periventricular and deep white matter hypodensities consistent with moderate chronic small vessel ischemic changes. The rosas-white matter junction appears preserved. There is intracranial internal carotid artery atherosclerosis. Skull and face: Calvarium and visualized facial bones demonstrate no acute fractures. There are bilateral frontal roman holes associated with a neurostimulator wires. Sinuses: Visualized sinuses and mastoids are clear. IMPRESSION: 1. No acute intracranial abnormality. Dictated by: Kota Kuhn M.D. on 10/26/2022 at 21:34 Approved by: Kota Kuhn M.D. on 10/26/2022 at 21:35
[2022-10-26 21:05] LABS: Add Manual Diff / Slide Review NO; Basophils Absolute Auto 0 /uL (0-100); Basophils Percent Auto 0.5 % (0-2); Eosinophils Absolute Auto 200 /uL (0-450); Eosinophils Percent Auto 4.8 % (2-4); Hematocrit 38.5 % (41-53); Hemoglobin 13.3 g/dL (13.5-17.5); Lymphocytes Absolute Auto 500 /uL (1100-4500); Lymphocytes Percent Auto 11.7 % (25-40); Mean Corpuscular HGB Conc 34.5 % (30-36); Mean Corpuscular Hemoglobin 29.7 PG (26-34); Monocytes Absolute Auto 400 /uL (0-900); Monocytes Percent Auto 8.4 % (3-14); Neutrophils Absolute Auto 3500 /uL (1500-7000); Neutrophils Percent Auto 74.6 % (50-75); Platelet Count 158 X10^3/uL (150-400); Red Blood Cell Count 4.48 X10^6/uL (4.5-5.9); Red Cell Distribution Width 13.5 % (11.6-14.8); White Blood Cell Count 4.6 X10^3/uL (4.5-11.0)
[2022-10-26 21:14] LABS: Alanine Aminotransferase 8 IU/L (<50); Albumin 3.9 g/dL (3.5-5.0); Albumin Globulin Ratio 1.6 (1.0-2.8); Alkaline Phosphatase 60 U/L (38-126); Aspartate Aminotransferase 15 IU/L (17-59); BUN Creatinine Ratio 26.9 (6-22); Bilirubin Total 0.5 mg/dL (0.2-1.3); Blood Urea Nitrogen 25 mg/dL (9-20); Calcium 8.8 mg/dL (8.4-10.2); Carbon Dioxide 27 mmol/L (22-32); Chloride 107 mmol/L (98-107); Creatine Kinase 38 U/L (55-170); Estimated Glomerular Filt Rate > 60 mL/min (>60); Globulin 2.5 g/dL (1.7-4.1); Glucose 121 mg/dL (80-110); HEMOLYSIS 22 (0-50); Lipase 127 U/L (23-300); Sodium 139 mmol/L (137-145); Total Protein 6.4 g/dL (6.3-8.2)
[2022-10-26 21:25] LABS: Troponin I 0.091 ng/mL (0.01-0.034)
--- NOTE | 2022-10-26 21:42 | PC.NURSE ---
Pt reports right sided chest pain and took one nitro between [id number] this afternoon. Also has had a headache since he woke up and left sided neck pain. Took three baby aspirin at 1700 and 400mg ibuprofen at 1999. Now reports chest pain resolved and headache pain 0.5
--- NOTE | 2022-10-26 21:58 | ED.HA ---
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 Woke up with some right-sided chest pain. He describes it as a dull ache nonradiating. He says later in the day he Was having some neck pain and headache as well. He does not think that his neck pain and headache are related to his chest pain. His actually massaged his neck making both of those go away. But he did have some continued right-sided chest discomfort. No shortness of breath. He did move a heavy box yesterday, a [employer] tree which he said he slid across the floor, so they thought it might be related to this. He was having pain like tension headache as well. No prior history of coronary artery disease. She. He had a previous nuclear stress test 01/26/2021 and was read as low risk without perfusion evidence of ischemia or infarction. Previously he had a test in 2018. He is followed by cardiology he did get some nitroglycerin. Headache has completely resolved no numbness tingling or weakness. He took aspirin prior to arrival. Related Data Home Medications Medication Instructions Recorded Confirmed carbidopa ER 50 mg-levodopa 200 mg 1 tab PO QID 04/08/18 10/27/22 tablet,extended release acetaminophen 325 mg tablet 325 mg PO Q6H PRN Pain (Scale 06/26/18 10/27/22 (Tylenol) Score 1-3) carbidopa 25 mg-levodopa 100 mg 25 - 100 tab PO QID PRN 07/14/20 10/27/22 disintegrating tablet parkinson's symptoms amlodipine 5 mg tablet 2.5 mg PO DAILY 10/27/22 10/27/22 Previous Rx's Medication Instructions Recorded Disabled Parking #1 ea 03/05/19 losartan 50 mg tablet 50 mg PO BID #180 tabs 02/02/21 metoprolol succinate 50 mg 50 mg PO BID #90 tabs 02/16/22 tablet,extended release 24 hr Allergies Allergy/AdvReac Type Severity Reaction Status Date / Time adhesive tape Allergy Intermediate Blister Verified 04/14/21 15:39 cefuroxime Allergy Mild rash/ Verified 04/14/21 15:39 itching codeine [CODEINE] Allergy Mild NAUSEA Verified 04/14/21 15:39 clindamycin AdvReac N/V Verified 04/14/21 15:39 Review of Systems <Ernestina Rudolph DO - Last Filed: 10/29/22 04:24> Review of Systems Narrative: GENERAL: Denies chills, fatigue, malaise, fever, sweats, travel HEENT: Denies sinus pain, ear pain, sore throat, difficulty swallowing, neck pain RESPIRATORY: Denies dyspnea, cough, wheezing, hemoptysis, sputum. CARDIOVASCULAR: See HPI GASTROINTESTINAL: Denies nausea, vomiting, abdominal pain, diarrhea, constipation, melena. : Denies dysuria, frequency, incontinence, hematuria, urinary retention, flank pain. MUSCULOSKELETAL: Denies weakness, joint pain, or bony pain SKIN: No rash, no erythema, no pruritus NEUROLOGIC: See HPI PSYCHIATRIC: No concerning psychosocial issues. 12 point review of systems is negative except for those stated above and HPI Patient History <Ernestina Rudolph DO - Last Filed: 10/29/22 04:24> Medical History Chronic low back pain with sciatica CVA (cerebral vascular accident) Hairy cell leukemia Headache Hypertension Paresthesias in left hand Parkinsons disease Surgical History History of tonsillectomy S/P deep brain stimulator placement S/P TURP Social History household members: spouse Smoking Status: Former smoker alcohol intake: current substance use type: does not use Smoking Status: Former smoker alcohol intake frequency: holidays/special occasions only Substance Use Type: does not use Exam <Ernestina Rudolph DO - Last Filed: 10/29/22 04:24> Initial Vital Signs Initial Vital Signs: Vital Signs Temperature 97.7 F 10/26/22 20:04 Pulse Rate 76 10/26/22 20:04 Respiratory Rate 18 10/26/22 20:04 Blood Pressure 177/84 H 10/26/22 20:04 Pulse Oximetry 97 10/26/22 20:04 Oxygen Delivery Method 10/26/22 20:04 GENERAL: Alert pleasant 77-year-old male and in no acute distress. HEENT: Head atraumatic,EOMI, pupils reactive, face symmetric, moist mucous membranes CARDIOVASCULAR: Regular rate and rhythm without murmurs, rubs or gallops. RESPIRATORY: Breath sounds equal bilaterally, no wheezes rales or rhonchi. ABDOMEN: Soft, nontender. Normoactive bowel sounds all 4 quadrants. No guarding or rebound. EXTREMITIES: Normal range of motion, no clubbing or edema. Neurovascularly intact NEUROLOGICAL: Alert and oriented x4.Normal gait and speech. Parkinsonian like features SKIN: Warm, dry, no laceration, no petechiae, no rashes or lesions. <Kellie Gambino DO - Last Filed: 10/28/22 19:30> Initial Vital Signs Initial Vital Signs: Vital Signs Temperature 97.7 F 10/26/22 20:04 Pulse Rate 76 10/26/22 20:04 Respiratory Rate 18 10/26/22 20:04 Blood Pressure 177/84 H 10/26/22 20:04 Pulse Oximetry 97 10/26/22 20:04 Oxygen Delivery Method 10/26/22 20:04 Course <Ernestina Rudolph, DO - Last Filed: 10/29/22 04:24> Orders Ordered: Acetaminophen (Acetaminophen 325 Mg Tablet) 650 mg PO Q6H PRN PRN Reason: Fever/Mild Pain (1-3) Last Admin: 10/28/22 22:27 Dose: 650 mg Documented By: TLS Aspirin (Aspirin Ec 81 Mg Tablet) 81 mg PO DAILY ZEYNEP Atorvastatin Calcium (Atorvastatin 20 Mg Tablet) 40 mg PO BEDTIME ZEYNEP Melatonin (Melatonin 3 Mg Tablet) 6 mg PO BEDTIME PRN PRN Reason: Insomnia Morphine Sulfate (Morphine 2 Mg/Ml Inj) 2 mg IV Q5MIN PRN PRN Reason: Chest Pain Naloxone HCl (Naloxone 0.4 Mg/Ml Vial) 0.2 mg IV Q2MIN PRN PRN Reason: Opiate Reversal Nitroglycerin (Nitroglycerin 0.4 Mg Sl Tab) 0.4 mg SL [id number] PRN PRN Reason: Chest Pain Ondansetron HCl (Ondansetron 4 Mg/2 Ml Inj) 4 mg IV Q8HR PRN PRN Reason: Nausea And Vomiting Pantoprazole Sodium (Pantoprazole Dr 20 Mg Tablet) 20 mg PO 0700 [facility] Polyethylene Glycol (Polyethylene Glycol 3350 17 Gm Powd.Pack) 17 gm PO DAILY PRN PRN Reason: Constipation Sennosides (Sennosides 8.6 Mg Tablet) 8.6 mg PO BID PRN PRN Reason: Constipation Discontinued Medications Acetaminophen (Acetaminophen 325 Mg Tablet) 975 mg PO NOW ONE Stop: 10/27/22 19:27 Last Admin: 10/27/22 19:39 Dose: 975 mg Documented By: SULAIMAN Amlodipine Besylate (Amlodipine 5 Mg Tablet) 5 mg PO DAILY [facility] Amlodipine Besylate (Amlodipine 5 Mg Tablet) 7.5 mg PO DAILY [facility] Last Admin: 10/28/22 09:36 Dose: 7.5 mg Documented By: Admin: 10/27/22 10:17 Dose: Not Given Documented By: Admin: 10/27/22 09:20 Dose: 7.5 mg Documented By: NELSON Aspirin (Aspirin 81 Mg Chew Tab) 324 mg PO DAILY [facility] Last Admin: 10/28/22 09:31 Dose: 324 mg Documented By: Admin: 10/27/22 10:17 Dose: Not Given Documented By: Admin: 10/27/22 09:18 Dose: 324 mg Documented By: NELSON Atorvastatin Calcium (Atorvastatin 20 Mg Tablet) 80 mg PO DAILY [facility] Last Admin: 10/28/22 09:34 Dose: 80 mg Documented By: Admin: 10/27/22 10:17 Dose: Not Given Documented By: Admin: 10/27/22 09:20 Dose: 80 mg Documented By: NELSON Carbidopa/Levodopa (Carbidopa-Levodopa 25/100 Tablet) 1 each PO QID [facility] Last Admin: 10/28/22 20:24 Dose: 1 each Documented By: Admin: 10/28/22 19:13 Dose: Not Given Documented By: Admin: 10/28/22 14:09 Dose: 1 each Documented By: Admin: 10/28/22 09:41 Dose: 1 each Documented By: Admin: 10/27/22 22:44 Dose: 1 each Documented By: Admin: 10/27/22 17:50 Dose: 1 each Documented By: Admin: 10/27/22 13:45 Dose: 1 each Documented By: Admin: 10/27/22 10:17 Dose: Not Given Documented By: Admin: 10/27/22 09:19 Dose: 1 each Documented By: NELSON Carbidopa/Levodopa (Carbidopa-Levodopa Er 50/200 Tablet) 1 each PO QID ZENYEP Last Admin: 10/28/22 20:24 Dose: 1 each Documented By: Admin: 10/28/22 19:13 Dose: Not Given Documented By: Admin: 10/28/22 14:10 Dose: 1 each Documented By: Admin: 10/28/22 09:40 Dose: 1 each Documented By: Admin: 10/27/22 22:09 Dose: 1 each Documented By: Admin: 10/27/22 17:50 Dose: 1 each Documented By: Admin: 10/27/22 12:48 Dose: 1 each Documented By: Admin: 10/27/22 10:18 Dose: Not Given Documented By: Admin: 10/27/22 09:19 Dose: 1 each Documented By: NELSON Heparin Sodium (Porcine) (Heparin 5,000 Unit/Ml Vial) 4,000 unit IV NOW ONE Stop: 10/27/22 01:10 Last Admin: 10/27/22 01:38 Dose: 4,000 unit Documented By: SHITAL Hydralazine HCl (Hydralazine 25 Mg Tablet) 50 mg PO TID ZEYNEP Last Admin: 10/28/22 22:28 Dose: 50 mg Documented By: Admin: 10/28/22 16:22 Dose: 50 mg Documented By: SARITHA Heparin Sodium/Dextrose (Heparin Drip) 25,000 unit in 500 mls @ 17.418 mls/hr IV CONT ZEYNEP; Protocol Stop: 10/29/22 02:00 Last Titration: 10/28/22 20:30 Dose: 12.69 units/kg/hr, 18.42 mls/hr Documented By: Admin: 10/28/22 03:20 Dose: 12.69 units/kg/hr, 18.418 mls/hr Documented By: Titration: 10/28/22 03:20 Dose: 12.69 units/kg/hr, 18.418 mls/hr Documented By: Titration: 10/27/22 14:18 Dose: 12.69 units/kg/hr, 18.418 mls/hr Documented By: Admin: 10/27/22 01:39 Dose: 12 units/kg/hr, 17.418 mls/hr Documented By: SHITAL Ibuprofen (Ibuprofen 400 Mg Tablet) 400 mg PO NOW ONE Stop: 10/27/22 17:46 Last Admin: 10/27/22 17:49 Dose: Not Given Documented By: GRAHAM Losartan Potassium (Losartan 50 Mg Tablet) 50 mg PO BID [facility] Last Admin: 10/28/22 22:28 Dose: 50 mg Documented By: Admin: 10/28/22 09:38 Dose: 50 mg Documented By: Admin: 10/27/22 22:09 Dose: 50 mg Documented By: Admin: 10/27/22 09:19 Dose: 50 mg Documented By: NR Metoprolol Succinate (Metoprolol Er 50 Mg Tablet) 50 mg PO BID [facility] Last Admin: 10/28/22 22:29 Dose: 50 mg Documented By: Admin: 10/28/22 09:38 Dose: 50 mg Documented By: Admin: 10/27/22 22:08 Dose: 50 mg Documented By: Admin: 10/27/22 09:20 Dose: 50 mg Documented By: NR Naloxone HCl (Naloxone 0.4 Mg/Ml Vial) 0.2 mg IV Q2MIN PRN PRN Reason: Opiate Reversal Pantoprazole Sodium (Pantoprazole 40 Mg Vial) 40 mg IV DAILY [facility] Last Admin: 10/28/22 09:41 Dose: 40 mg Documented By: Admin: 10/27/22 14:23 Dose: 40 mg Documented By: SULAIMAN Pantoprazole Sodium (Pantoprazole 40 Mg Vial) 40 mg IV NOW ONE Stop: 10/27/22 09:33 Last Admin: 10/27/22 14:23 Dose: Not Given Documented By: SULAIMAN Vital Signs Vital signs: Vital Signs - 8 hr 10/28/22 13:42 10/28/22 11:30 10/28/22 12:00 Pulse Rate 58 L 53 L 60 Respiratory Rate 19 11 L Blood Pressure 150/70 H Pulse Oximetry 98 Oxygen Delivery Method Room Air 10/28/22 12:30 10/28/22 13:00 10/28/22 13:30 Pulse Rate 65 58 L 60 Respiratory Rate 25 H 20 23 Blood Pressure Pulse Oximetry Oxygen Delivery Method 10/28/22 15:00 10/28/22 15:29 10/28/22 15:30 Pulse Rate 60 55 L Respiratory Rate 20 20 Blood Pressure 158/77 H 158/73 H Pulse Oximetry Oxygen Delivery Method 10/28/22 15:30 10/28/22 16:00 10/28/22 16:00 Pulse Rate 56 L 58 L Respiratory Rate 19 21 Blood Pressure 173/77 H Pulse Oximetry Oxygen Delivery Method 10/28/22 16:22 10/28/22 16:30 10/28/22 17:00 Pulse Rate 60 64 78 Respiratory Rate Blood Pressure 173/77 H Pulse Oximetry Oxygen Delivery Method 10/28/22 17:30 10/28/22 17:43 10/28/22 17:44 Pulse Rate 70 72 72 Respiratory Rate 27 H 18 54 H Blood Pressure 139/67 Pulse Oximetry 97 97 Oxygen Delivery Method Room Air 10/28/22 17:44 10/28/22 18:00 10/28/22 18:00 Pulse Rate 69 Respiratory Rate Blood Pressure 139/67 139/63 Pulse Oximetry 96 Oxygen Delivery Method Room Air <Kellie Gambino DO - Last Filed: 10/28/22 19:30> Orders Ordered: Acetaminophen (Acetaminophen 325 Mg Tablet) 650 mg PO Q6H PRN PRN Reason: Fever/Mild Pain (1-3) Last Admin: 10/28/22 22:27 Dose: 650 mg Documented By: TLS Aspirin (Aspirin Ec 81 Mg Tablet) 81 mg PO DAILY ZEYNEP Atorvastatin Calcium (Atorvastatin 20 Mg Tablet) 40 mg PO BEDTIME ZEYNEP Melatonin (Melatonin 3 Mg Tablet) 6 mg PO BEDTIME PRN PRN Reason: Insomnia Morphine Sulfate (Morphine 2 Mg/Ml Inj) 2 mg IV Q5MIN PRN PRN Reason: Chest Pain Naloxone HCl (Naloxone 0.4 Mg/Ml Vial) 0.2 mg IV Q2MIN PRN PRN Reason: Opiate Reversal Nitroglycerin (Nitroglycerin 0.4 Mg Sl Tab) 0.4 mg SL [id number] PRN PRN Reason: Chest Pain Ondansetron HCl (Ondansetron 4 Mg/2 Ml Inj) 4 mg IV Q8HR PRN PRN Reason: Nausea And Vomiting Pantoprazole Sodium (Pantoprazole Dr 20 Mg Tablet) 20 mg PO 0700 [facility] Polyethylene Glycol (Polyethylene Glycol 3350 17 Gm Powd.Pack) 17 gm PO DAILY PRN PRN Reason: Constipation Sennosides (Sennosides 8.6 Mg Tablet) 8.6 mg PO BID PRN PRN Reason: Constipation Discontinued Medications Acetaminophen (Acetaminophen 325 Mg Tablet) 975 mg PO NOW ONE Stop: 10/27/22 19:27 Last Admin: 10/27/22 19:39 Dose: 975 mg Documented By: SULAIMAN Amlodipine Besylate (Amlodipine 5 Mg Tablet) 5 mg PO DAILY [facility] Amlodipine Besylate (Amlodipine 5 Mg Tablet) 7.5 mg PO DAILY [facility] Last Admin: 10/28/22 09:36 Dose: 7.5 mg Documented By: Admin: 10/27/22 10:17 Dose: Not Given Documented By: Admin: 10/27/22 09:20 Dose: 7.5 mg Documented By: NELSON Aspirin (Aspirin 81 Mg Chew Tab) 324 mg PO DAILY [facility] Last Admin: 10/28/22 09:31 Dose: 324 mg Documented By: Admin: 10/27/22 10:17 Dose: Not Given Documented By: Admin: 10/27/22 09:18 Dose: 324 mg Documented By: NELSON Atorvastatin Calcium (Atorvastatin 20 Mg Tablet) 80 mg PO DAILY [facility] Last Admin: 10/28/22 09:34 Dose: 80 mg Documented By: Admin: 10/27/22 10:17 Dose: Not Given Documented By: Admin: 10/27/22 09:20 Dose: 80 mg Documented By: NELSON Carbidopa/Levodopa (Carbidopa-Levodopa 25/100 Tablet) 1 each PO QID [facility] Last Admin: 10/28/22 20:24 Dose: 1 each Documented By: Admin: 10/28/22 19:13 Dose: Not Given Documented By: Admin: 10/28/22 14:09 Dose: 1 each Documented By: Admin: 10/28/22 09:41 Dose: 1 each Documented By: Admin: 10/27/22 22:44 Dose: 1 each Documented By: Admin: 10/27/22 17:50 Dose: 1 each Documented By: Admin: 10/27/22 13:45 Dose: 1 each Documented By: Admin: 10/27/22 10:17 Dose: Not Given Documented By: Admin: 10/27/22 09:19 Dose: 1 each Documented By: NELSON Carbidopa/Levodopa (Carbidopa-Levodopa Er 50/200 Tablet) 1 each PO QID ZEYNEP Last Admin: 10/28/22 20:24 Dose: 1 each Documented By: Admin: 10/28/22 19:13 Dose: Not Given Documented By: Admin: 10/28/22 14:10 Dose: 1 each Documented By: Admin: 10/28/22 09:40 Dose: 1 each Documented By: Admin: 10/27/22 22:09 Dose: 1 each Documented By: Admin: 10/27/22 17:50 Dose: 1 each Documented By: Admin: 10/27/22 12:48 Dose: 1 each Documented By: Admin: 10/27/22 10:18 Dose: Not Given Documented By: Admin: 10/27/22 09:19 Dose: 1 each Documented By: NELSON Heparin Sodium (Porcine) (Heparin 5,000 Unit/Ml Vial) 4,000 unit IV NOW ONE Stop: 10/27/22 01:10 Last Admin: 10/27/22 01:38 Dose: 4,000 unit Documented By: SHITAL Hydralazine HCl (Hydralazine 25 Mg Tablet) 50 mg PO TID ZEYNEP Last Admin: 10/28/22 22:28 Dose: 50 mg Documented By: Admin: 10/28/22 16:22 Dose: 50 mg Documented By: SARITHA Heparin Sodium/Dextrose (Heparin Drip) 25,000 unit in 500 mls @ 17.418 mls/hr IV CONT ZEYNEP; Protocol Stop: 10/29/22 02:00 Last Titration: 10/28/22 20:30 Dose: 12.69 units/kg/hr, 18.42 mls/hr Documented By: Admin: 10/28/22 03:20 Dose: 12.69 units/kg/hr, 18.418 mls/hr Documented By: Titration: 10/28/22 03:20 Dose: 12.69 units/kg/hr, 18.418 mls/hr Documented By: Titration: 10/27/22 14:18 Dose: 12.69 units/kg/hr, 18.418 mls/hr Documented By: Admin: 10/27/22 01:39 Dose: 12 units/kg/hr, 17.418 mls/hr Documented By: SHITAL Ibuprofen (Ibuprofen 400 Mg Tablet) 400 mg PO NOW ONE Stop: 10/27/22 17:46 Last Admin: 10/27/22 17:49 Dose: Not Given Documented By: GRAHAM Losartan Potassium (Losartan 50 Mg Tablet) 50 mg PO BID [facility] Last Admin: 10/28/22 22:28 Dose: 50 mg Documented By: Admin: 10/28/22 09:38 Dose: 50 mg Documented By: Admin: 10/27/22 22:09 Dose: 50 mg Documented By: Admin: 10/27/22 09:19 Dose: 50 mg Documented By: NR Metoprolol Succinate (Metoprolol Er 50 Mg Tablet) 50 mg PO BID [facility] Last Admin: 10/28/22 22:29 Dose: 50 mg Documented By: Admin: 10/28/22 09:38 Dose: 50 mg Documented By: Admin: 10/27/22 22:08 Dose: 50 mg Documented By: Admin: 10/27/22 09:20 Dose: 50 mg Documented By: NR Naloxone HCl (Naloxone 0.4 Mg/Ml Vial) 0.2 mg IV Q2MIN PRN PRN Reason: Opiate Reversal Pantoprazole Sodium (Pantoprazole 40 Mg Vial) 40 mg IV DAILY [facility] Last Admin: 10/28/22 09:41 Dose: 40 mg Documented By: Admin: 10/27/22 14:23 Dose: 40 mg Documented By: SULAIMAN Pantoprazole Sodium (Pantoprazole 40 Mg Vial) 40 mg IV NOW ONE Stop: 10/27/22 09:33 Last Admin: 10/27/22 14:23 Dose: Not Given Documented By: SULAIMAN Vital Signs Vital signs: Vital Signs - 8 hr 10/28/22 13:42 10/28/22 11:30 10/28/22 12:00 Pulse Rate 58 L 53 L 60 Respiratory Rate 19 11 L Blood Pressure 150/70 H Pulse Oximetry 98 Oxygen Delivery Method Room Air 10/28/22 12:30 10/28/22 13:00 10/28/22 13:30 Pulse Rate 65 58 L 60 Respiratory Rate 25 H 20 23 Blood Pressure Pulse Oximetry Oxygen Delivery Method 10/28/22 15:00 10/28/22 15:29 10/28/22 15:30 Pulse Rate 60 55 L Respiratory Rate 20 20 Blood Pressure 158/77 H 158/73 H Pulse Oximetry Oxygen Delivery Method 10/28/22 15:30 10/28/22 16:00 10/28/22 16:00 Pulse Rate 56 L 58 L Respiratory Rate 19 21 Blood Pressure 173/77 H Pulse Oximetry Oxygen Delivery Method 10/28/22 16:22 10/28/22 16:30 10/28/22 17:00 Pulse Rate 60 64 78 Respiratory Rate Blood Pressure 173/77 H Pulse Oximetry Oxygen Delivery Method 10/28/22 17:30 10/28/22 17:43 10/28/22 17:44 Pulse Rate 70 72 72 Respiratory Rate 27 H 18 54 H Blood Pressure 139/67 Pulse Oximetry 97 97 Oxygen Delivery Method Room Air 10/28/22 17:44 10/28/22 18:00 10/28/22 18:00 Pulse Rate 69 Respiratory Rate Blood Pressure 139/67 139/63 Pulse Oximetry 96 Oxygen Delivery Method Room Air MDM - Headache <Ernestina Rudolph, DO - Last Filed: 10/29/22 04:24> Lab Data Result diagrams: 10/27/22 08:40 10/27/22 08:40 Labs: Lab Results 10/26/22 10/26/22 10/26/22 Range/Units 20:19 20:19 22:20 WBC 4.6 (4.5-11.0) X10^3/uL RBC 4.48 L (4.5-5.9) X10^6/uL Hgb 13.3 L (13.5-17.5) g/dL Hct 38.5 L (41-53) % MCV 86.0 (80-100) fL MCH 29.7 (26-34) PG MCHC 34.5 (30-36) % RDW 13.5 (11.6-14.8) % Plt Count 158 (150-400) X10^3/uL Neut % (Auto) 74.6 (50-75) % Lymph % (Auto) 11.7 L (25-40) % [place] % (Auto) 8.4 (3-14) % Eos % (Auto) 4.8 H (2-4) % Baso % (Auto) 0.5 (0-2) % Neut # (Auto) 3500 (1818-8905) /uL Lymph # (Auto) 500 L (3944-1329) /uL [place] # (Auto) 400 (0-900) /uL Eos # (Auto) 200 (0-450) /uL Baso # (Auto) 0 (0-100) /uL APTT (26-36) SECONDS Sodium 139 (137-145) mmol/L Potassium 4.0 (3.4-5.1) mmol/L Chloride 107 (98-107) mmol/L Carbon Dioxide 27 (22-32) mmol/L BUN 25 H (9-20) mg/dL Creatinine 0.93 (0.66-1.25) mg/dL Estimated GFR > 60 (>60) mL/min BUN/Creatinine Ratio 26.9 H (6-22) Glucose 121 H (80-110) mg/dL Hemoglobin A1c (4.0-6.0) % Calcium 8.8 (8.4-10.2) mg/dL Magnesium (1.6-2.3) mg/dL Total Bilirubin 0.5 (0.2-1.3) mg/dL AST 15 L (17-59) IU/L ALT 8 (<50) IU/L Alkaline Phosphatase 60 (38-126) U/L Total Creatine Kinase 38 L (55-170) U/L CK-MB (CK-2) TNP CK-MB (CK-2) Rel Index TNP Troponin I 0.091 H 0.106 H (0.01-0.034) ng/mL Total Protein 6.4 (6.3-8.2) g/dL Albumin 3.9 (3.5-5.0) g/dL Globulin 2.5 (1.7-4.1) g/dL Albumin/Globulin Ratio 1.6 (1.0-2.8) Lipase 127 (23-300) U/L TSH (0.47-4.68) uIU/mL Urine RBC (0-5/HPF) Urine WBC (0-5/HPF) Urine Bacteria (None) Micro UA Comment SARS-CoV-2 (PCR) (Negative) 10/26/22 10/27/22 10/27/22 Range/Units 23:40 00:01 00:14 WBC (4.5-11.0) X10^3/uL RBC (4.5-5.9) X10^6/uL Hgb (13.5-17.5) g/dL Hct (41-53) % MCV (80-100) fL MCH (26-34) PG MCHC (30-36) % RDW (11.6-14.8) % Plt Count (150-400) X10^3/uL Neut % (Auto) (50-75) % Lymph % (Auto) (25-40) % [place] % (Auto) (3-14) % Eos % (Auto) (2-4) % Baso % (Auto) (0-2) % Neut # (Auto) (7131-8057) /uL Lymph # (Auto) (2116-8550) /uL [place] # (Auto) (0-900) /uL Eos # (Auto) (0-450) /uL Baso # (Auto) (0-100) /uL APTT (26-36) SECONDS Sodium (137-145) mmol/L Potassium (3.4-5.1) mmol/L Chloride (98-107) mmol/L Carbon Dioxide (22-32) mmol/L BUN (9-20) mg/dL Creatinine (0.66-1.25) mg/dL Estimated GFR (>60) mL/min BUN/Creatinine Ratio (6-22) Glucose (80-110) mg/dL Hemoglobin A1c (4.0-6.0) % Calcium (8.4-10.2) mg/dL Magnesium (1.6-2.3) mg/dL Total Bilirubin (0.2-1.3) mg/dL AST (17-59) IU/L ALT (<50) IU/L Alkaline Phosphatase (38-126) U/L Total Creatine Kinase (55-170) U/L CK-MB (CK-2) CK-MB (CK-2) Rel Index Troponin I 0.123 H* (0.01-0.034) ng/mL Total Protein (6.3-8.2) g/dL Albumin (3.5-5.0) g/dL Globulin (1.7-4.1) g/dL Albumin/Globulin Ratio (1.0-2.8) Lipase (23-300) U/L TSH (0.47-4.68) uIU/mL Urine RBC 1-5/hpf D (0-5/HPF) Urine WBC 30-100/hpf H (0-5/HPF) Urine Bacteria Few (2-10) H (None) Micro UA Comment * SARS-CoV-2 (PCR) Negative (Negative) 10/27/22 10/27/22 10/27/22 Range/Units 01:45 08:40 08:40 WBC 4.2 L (4.5-11.0) X10^3/uL RBC 4.65 (4.5-5.9) X10^6/uL Hgb 13.7 (13.5-17.5) g/dL Hct 39.8 L (41-53) % MCV 85.8 (80-100) fL MCH 29.4 (26-34) PG MCHC 34.3 (30-36) % RDW 13.5 (11.6-14.8) % Plt Count 162 (150-400) X10^3/uL Neut % (Auto) 69.1 (50-75) % Lymph % (Auto) 14.9 L (25-40) % [place] % (Auto) 10.3 (3-14) % Eos % (Auto) 4.9 H (2-4) % Baso % (Auto) 0.8 (0-2) % Neut # (Auto) 2900 (0977-5855) /uL Lymph # (Auto) 600 L (7708-0423) /uL [place] # (Auto) 400 (0-900) /uL Eos # (Auto) 200 (0-450) /uL Baso # (Auto) 0 (0-100) /uL APTT 27 (26-36) SECONDS Sodium 141 (137-145) mmol/L Potassium 4.0 (3.4-5.1) mmol/L Chloride 104 (98-107) mmol/L Carbon Dioxide 28 (22-32) mmol/L BUN 23 H (9-20) mg/dL Creatinine 0.75 (0.66-1.25) mg/dL Estimated GFR > 60 (>60) mL/min BUN/Creatinine Ratio 30.7 H (6-22) Glucose 101 (80-110) mg/dL Hemoglobin A1c (4.0-6.0) % Calcium 8.8 (8.4-10.2) mg/dL Magnesium (1.6-2.3) mg/dL Total Bilirubin 0.7 (0.2-1.3) mg/dL AST 21 (17-59) IU/L ALT 9 (<50) IU/L Alkaline Phosphatase 53 (38-126) U/L Total Creatine Kinase (55-170) U/L CK-MB (CK-2) CK-MB (CK-2) Rel Index Troponin I 0.090 H (0.01-0.034) ng/mL Total Protein 6.9 (6.3-8.2) g/dL Albumin 3.9 (3.5-5.0) g/dL Globulin 3.0 (1.7-4.1) g/dL Albumin/Globulin Ratio 1.3 (1.0-2.8) Lipase (23-300) U/L TSH (0.47-4.68) uIU/mL Urine RBC (0-5/HPF) Urine WBC (0-5/HPF) Urine Bacteria (None) Micro UA Comment SARS-CoV-2 (PCR) (Negative) 10/27/22 10/27/22 10/27/22 Range/Units 13:36 16:12 20:03 WBC (4.5-11.0) X10^3/uL RBC (4.5-5.9) X10^6/uL Hgb (13.5-17.5) g/dL Hct (41-53) % MCV (80-100) fL MCH (26-34) PG MCHC (30-36) % RDW (11.6-14.8) % Plt Count (150-400) X10^3/uL Neut % (Auto) (50-75) % Lymph % (Auto) (25-40) % [place] % (Auto) (3-14) % Eos % (Auto) (2-4) % Baso % (Auto) (0-2) % Neut # (Auto) (0229-0688) /uL Lymph # (Auto) (5757-3383) /uL [place] # (Auto) (0-900) /uL Eos # (Auto) (0-450) /uL Baso # (Auto) (0-100) /uL APTT 46 H D 55 H D (26-36) SECONDS Sodium (137-145) mmol/L Potassium (3.4-5.1) mmol/L Chloride (98-107) mmol/L Carbon Dioxide (22-32) mmol/L BUN (9-20) mg/dL Creatinine (0.66-1.25) mg/dL Estimated GFR (>60) mL/min BUN/Creatinine Ratio (6-22) Glucose (80-110) mg/dL Hemoglobin A1c (4.0-6.0) % Calcium (8.4-10.2) mg/dL Magnesium (1.6-2.3) mg/dL Total Bilirubin (0.2-1.3) mg/dL AST (17-59) IU/L ALT (<50) IU/L Alkaline Phosphatase (38-126) U/L Total Creatine Kinase (55-170) U/L CK-MB (CK-2) CK-MB (CK-2) Rel Index Troponin I 0.054 H (0.01-0.034) ng/mL Total Protein (6.3-8.2) g/dL Albumin (3.5-5.0) g/dL Globulin (1.7-4.1) g/dL Albumin/Globulin Ratio (1.0-2.8) Lipase (23-300) U/L TSH (0.47-4.68) uIU/mL Urine RBC (0-5/HPF) Urine WBC (0-5/HPF) Urine Bacteria (None) Micro UA Comment SARS-CoV-2 (PCR) (Negative) 10/28/22 10/28/22 10/28/22 Range/Units 02:02 09:15 09:15 WBC (4.5-11.0) X10^3/uL RBC (4.5-5.9) X10^6/uL Hgb (13.5-17.5) g/dL Hct (41-53) % MCV (80-100) fL MCH (26-34) PG MCHC (30-36) % RDW (11.6-14.8) % Plt Count (150-400) X10^3/uL Neut % (Auto) (50-75) % Lymph % (Auto) (25-40) % [place] % (Auto) (3-14) % Eos % (Auto) (2-4) % Baso % (Auto) (0-2) % Neut # (Auto) (6637-0332) /uL Lymph # (Auto) (5437-6485) /uL [place] # (Auto) (0-900) /uL Eos # (Auto) (0-450) /uL Baso # (Auto) (0-100) /uL APTT 55 H 56 H (26-36) SECONDS Sodium (137-145) mmol/L Potassium (3.4-5.1) mmol/L Chloride (98-107) mmol/L Carbon Dioxide (22-32) mmol/L BUN (9-20) mg/dL Creatinine (0.66-1.25) mg/dL Estimated GFR (>60) mL/min BUN/Creatinine Ratio (6-22) Glucose (80-110) mg/dL Hemoglobin A1c 5.4 (4.0-6.0) % Calcium (8.4-10.2) mg/dL Magnesium (1.6-2.3) mg/dL Total Bilirubin (0.2-1.3) mg/dL AST (17-59) IU/L ALT (<50) IU/L Alkaline Phosphatase (38-126) U/L Total Creatine Kinase (55-170) U/L CK-MB (CK-2) CK-MB (CK-2) Rel Index Troponin I (0.01-0.034) ng/mL Total Protein (6.3-8.2) g/dL Albumin (3.5-5.0) g/dL Globulin (1.7-4.1) g/dL Albumin/Globulin Ratio (1.0-2.8) Lipase (23-300) U/L TSH (0.47-4.68) uIU/mL Urine RBC (0-5/HPF) Urine WBC (0-5/HPF) Urine Bacteria (None) Micro UA Comment SARS-CoV-2 (PCR) (Negative) 10/28/22 10/28/22 Range/Units 09:15 09:15 WBC (4.5-11.0) X10^3/uL RBC (4.5-5.9) X10^6/uL Hgb (13.5-17.5) g/dL Hct (41-53) % MCV (80-100) fL MCH (26-34) PG MCHC (30-36) % RDW (11.6-14.8) % Plt Count (150-400) X10^3/uL Neut % (Auto) (50-75) % Lymph % (Auto) (25-40) % [place] % (Auto) (3-14) % Eos % (Auto) (2-4) % Baso % (Auto) (0-2) % Neut # (Auto) (8676-5395) /uL Lymph # (Auto) (8813-1563) /uL [place] # (Auto) (0-900) /uL Eos # (Auto) (0-450) /uL Baso # (Auto) (0-100) /uL APTT (26-36) SECONDS Sodium (137-145) mmol/L Potassium (3.4-5.1) mmol/L Chloride (98-107) mmol/L Carbon Dioxide (22-32) mmol/L BUN (9-20) mg/dL Creatinine (0.66-1.25) mg/dL Estimated GFR (>60) mL/min BUN/Creatinine Ratio (6-22) Glucose (80-110) mg/dL Hemoglobin A1c (4.0-6.0) % Calcium (8.4-10.2) mg/dL Magnesium 2.1 (1.6-2.3) mg/dL Total Bilirubin (0.2-1.3) mg/dL AST (17-59) IU/L ALT (<50) IU/L Alkaline Phosphatase (38-126) U/L Total Creatine Kinase (55-170) U/L CK-MB (CK-2) CK-MB (CK-2) Rel Index Troponin I (0.01-0.034) ng/mL Total Protein (6.3-8.2) g/dL Albumin (3.5-5.0) g/dL Globulin (1.7-4.1) g/dL Albumin/Globulin Ratio (1.0-2.8) Lipase (23-300) U/L TSH 2.59 (0.47-4.68) uIU/mL Urine RBC (0-5/HPF) Urine WBC (0-5/HPF) Urine Bacteria (None) Micro UA Comment SARS-CoV-2 (PCR) (Negative) Urine Dip Bedside Urine Glucose Negative Bedside Urine Bilirubin - Negative Bedside Urine Ketone - Negative Urine Specific [place] 1.030 Bedside Urine Occult Blood +/- Bedside Urine pH 6.0 Bedside Urine Protein + 30 Bedside Urine Urobilinogen - Negative Bedside Urine Nitrite - Negative Bedside Urine Leukocytes +/- [address] scan - head: Radiologist's Impression: CT Scan Report Signed Patient: Olu Rivas V MR#: [id number] : 1945 Acct:[id number] Age/Sex: 77 / M Date of Service: 10/26/22 Loc: ED Accession Number: [id number] ?? Procedure: CT head/brain wo con Ordering Provider: Ernestina Rudolph D.O. PROCEDURE:? CT HEAD/BRAIN WO CON ? INDICATIONS:? headache ? TECHNIQUE:? Noncontrast 4.5 mm thick angled axial sections acquired from the foramen magnum to the vertex, with coronal and sagittal reformats.? For radiation dose reduction, the following was used:? automated exposure control, adjustment of mA and/or kV according to patient size.? ? COMPARISON:? [facility], CT, CT HEAD/BRAIN WO CON, 02/06/2022, 23:39. ? FINDINGS:? Image quality:? Excellent.? ? CSF spaces:? Basal cisterns are patent.? No extra-axial fluid collections.? There is mild cerebral volume loss, with resultant ventricular and sulcal prominence.? ? Brain:? Bilateral thalamic neuro stimulators appear unchanged in position.? No intracranial hemorrhage, mass, or mass effect.? There are subcortical, periventricular and deep white matter hypodensities consistent with moderate chronic small vessel ischemic changes.? The rosas-white matter junction appears preserved.? There is intracranial internal carotid artery atherosclerosis.? ? Skull and face:? Calvarium and visualized facial bones demonstrate no acute fractures.? There are bilateral frontal roman holes associated with a neurostimulator wires. ? Sinuses:? Visualized sinuses and mastoids are clear.? ? IMPRESSION:? ? 1. No acute intracranial abnormality. ? Dictated by: Kota Kuhn M.D. on 10/26/2022 at 21:34 ? ? Approved by: Kota Kuhn M.D. on 10/26/2022 at 21:35 ? Chest x-ray: Radiologist's Impression: XRay Report Signed Patient: Olu Rivas V MR#: [id number] : 1945 Acct:[id number] Age/Sex: 77 / M Date of Service: 10/26/22 Loc: ED Accession Number: [id number] ?? Procedure: XR chest 1V Ordering Provider: Ernestina Rudolph D.O. PROCEDURE:? XR CHEST 1V ? INDICATIONS:? chest pain ? TECHNIQUE:? One view of the chest was acquired.? ? COMPARISON:? [facility], CR, XR CHEST 1V, 02/06/2022, 23:07. ? FINDINGS:? ? Surgical changes and devices:? Neurostimulator device redemonstrated in the left hemithorax. ? Lungs and pleura:? No acute consolidation within the visualized lungs.? There is a nodular opacity within the right upper lung zone measuring up to 1.1 cm.? No pleural effusions or pneumothorax.? ? Mediastinum:? Mediastinal contours appear normal.? Heart size is normal.? ? Bones and chest wall:? No suspicious bony lesions.? Overlying soft tissues appear unremarkable.? ? IMPRESSION:? ? 1. Nodular opacity within the right upper lung zone suspicious for a pulmonary nodule.? Recommend a follow-up nonemergent chest CT for further evaluation.? ? ? Dictated by: Kota Kuhn M.D. on 10/26/2022 at 22:59 ?? ECG Data Interpretation: EKG done off monitor his no obvious ST changes sinus rhythm aVL does show T-wave inversion which is actually not male MDM Narrative Medical decision making narrative: EKG very difficult to get unable to get 1 last time due to his stimulator we were able to get 1 off the monitor. No obvious ST elevation there is obviously some stimulator artifact but no ST depression. 1st troponin is elevated 0.091 which is new from previous patient no longer having chest pain. Repeat troponin is 0.106. 3rd troponin is positive 0.1-3 patient remains chest pain free. He started on heparin drip There is no bed availability, places have not been called regionally with no availability. Mank 10/27/22: Patient signed out to myself by Dr. Rudolph. Patient had chest pain right-sided has had a new stress test a year ago no obvious ST changes on EKGs which were reviewed by myself. These have to be done off the monitor as patient has stimulator and the EKG machine itself will not cone picker. Patient troponin has been trending upwards. Patient is chest pain-free after being seen and evaluated by myself independently. He was started on heparin drip, nitro drip held as he is chest pain-free. Aspirin, home medications including his beta-vita and high-dose statin were ordered, patient notes he is actually on amlodipine 7.5 mg daily in the morning along with 50 mg of metoprolol and losartan twice daily. He did have some miss doses which is likely contributing to his elevated blood pressure this morning. Patient does have somewhat slow speech and flat affect consistent with Parkinson's history but is quite alert and appropriate. He is frustrated to be sitting here and re-reviewed that his heart enzyme is still trending upwards and I would not recommend that he leave until it is trending down words. Cardiology was consulted. Echo ordered and attempting to find placement at other facility that has inpatient cardiology available. Ronni 10/27/22: No issues overnight remains on heparin drip up to the restroom any time signed back out to Dr. Maki Gambino 10/28/22: Patient signed back out to myself by Dr. Rudolph from overnight. Patient was seen yesterday as well. He was here overnight uneventfully, he has had continuing downward trending troponins he has been on heparin for 30+ hours blood pressure still been somewhat elevated. He had echo obtained today. Case was discussed with cardiology Dr. Alcantara read his echo no acute abnormalities no focal wall motion abnormalities. His recommendations include stopping heparin if troponin still trending down words at 48 hours from initiation. Adding hydralazine 50 mg t.i.d. for blood pressure control. He does recommended new command stress test once off heparin for patient to risk stratify in terms of hypertensive urgency/emergency versus ACS. If patient's new med stress test is negative could be discharged home with follow-up with outpatient Cardiology if positive would still require cardiology evaluation and catheterization. Patient family were updated regarding these recommendations. I did also speak with Cardiology at [place], Dr. Quintero who recommends same plan currently. I spoke with Dr. Agustin our hospitalist who accepts for inpatient admission as patient will have been here for 2 midnights receiving inpatient care. I did also speak with the coordinator they are attempting to make sure that there is a slot for patient to have stress test tomorrow. <Kellie Gambino, DO - Last Filed: 10/28/22 19:30> Lab Data Labs: Lab Results 10/26/22 10/26/22 10/26/22 Range/Units 20:19 20:19 22:20 WBC 4.6 (4.5-11.0) X10^3/uL RBC 4.48 L (4.5-5.9) X10^6/uL Hgb 13.3 L (13.5-17.5) g/dL Hct 38.5 L (41-53) % MCV 86.0 (80-100) fL MCH 29.7 (26-34) PG MCHC 34.5 (30-36) % RDW 13.5 (11.6-14.8) % Plt Count 158 (150-400) X10^3/uL Neut % (Auto) 74.6 (50-75) % Lymph % (Auto) 11.7 L (25-40) % [place] % (Auto) 8.4 (3-14) % Eos % (Auto) 4.8 H (2-4) % Baso % (Auto) 0.5 (0-2) % Neut # (Auto) 3500 (5252-4770) /uL Lymph # (Auto) 500 L (8196-8179) /uL [place] # (Auto) 400 (0-900) /uL Eos # (Auto) 200 (0-450) /uL Baso # (Auto) 0 (0-100) /uL APTT (26-36) SECONDS Sodium 139 (137-145) mmol/L Potassium 4.0 (3.4-5.1) mmol/L Chloride 107 (98-107) mmol/L Carbon Dioxide 27 (22-32) mmol/L BUN 25 H (9-20) mg/dL Creatinine 0.93 (0.66-1.25) mg/dL Estimated GFR > 60 (>60) mL/min BUN/Creatinine Ratio 26.9 H (6-22) Glucose 121 H (80-110) mg/dL Hemoglobin A1c (4.0-6.0) % Calcium 8.8 (8.4-10.2) mg/dL Magnesium (1.6-2.3) mg/dL Total Bilirubin 0.5 (0.2-1.3) mg/dL AST 15 L (17-59) IU/L ALT 8 (<50) IU/L Alkaline Phosphatase 60 (38-126) U/L Total Creatine Kinase 38 L (55-170) U/L CK-MB (CK-2) TNP CK-MB (CK-2) Rel Index TNP Troponin I 0.091 H 0.106 H (0.01-0.034) ng/mL Total Protein 6.4 (6.3-8.2) g/dL Albumin 3.9 (3.5-5.0) g/dL Globulin 2.5 (1.7-4.1) g/dL Albumin/Globulin Ratio 1.6 (1.0-2.8) Lipase 127 (23-300) U/L TSH (0.47-4.68) uIU/mL Urine RBC (0-5/HPF) Urine WBC (0-5/HPF) Urine Bacteria (None) Micro UA Comment SARS-CoV-2 (PCR) (Negative) 10/26/22 10/27/22 10/27/22 Range/Units 23:40 00:01 00:14 WBC (4.5-11.0) X10^3/uL RBC (4.5-5.9) X10^6/uL Hgb (13.5-17.5) g/dL Hct (41-53) % MCV (80-100) fL MCH (26-34) PG MCHC (30-36) % RDW (11.6-14.8) % Plt Count (150-400) X10^3/uL Neut % (Auto) (50-75) % Lymph % (Auto) (25-40) % [place] % (Auto) (3-14) % Eos % (Auto) (2-4) % Baso % (Auto) (0-2) % Neut # (Auto) (6383-2266) /uL Lymph # (Auto) (0384-6576) /uL [place] # (Auto) (0-900) /uL Eos # (Auto) (0-450) /uL Baso # (Auto) (0-100) /uL APTT (26-36) SECONDS Sodium (137-145) mmol/L Potassium (3.4-5.1) mmol/L Chloride (98-107) mmol/L Carbon Dioxide (22-32) mmol/L BUN (9-20) mg/dL Creatinine (0.66-1.25) mg/dL Estimated GFR (>60) mL/min BUN/Creatinine Ratio (6-22) Glucose (80-110) mg/dL Hemoglobin A1c (4.0-6.0) % Calcium (8.4-10.2) mg/dL Magnesium (1.6-2.3) mg/dL Total Bilirubin (0.2-1.3) mg/dL AST (17-59) IU/L ALT (<50) IU/L Alkaline Phosphatase (38-126) U/L Total Creatine Kinase (55-170) U/L CK-MB (CK-2) CK-MB (CK-2) Rel Index Troponin I 0.123 H* (0.01-0.034) ng/mL Total Protein (6.3-8.2) g/dL Albumin (3.5-5.0) g/dL Globulin (1.7-4.1) g/dL Albumin/Globulin Ratio (1.0-2.8) Lipase (23-300) U/L TSH (0.47-4.68) uIU/mL Urine RBC 1-5/hpf D (0-5/HPF) Urine WBC 30-100/hpf H (0-5/HPF) Urine Bacteria Few (2-10) H (None) Micro UA Comment * SARS-CoV-2 (PCR) Negative (Negative) 10/27/22 10/27/22 10/27/22 Range/Units 01:45 08:40 08:40 WBC 4.2 L (4.5-11.0) X10^3/uL RBC 4.65 (4.5-5.9) X10^6/uL Hgb 13.7 (13.5-17.5) g/dL Hct 39.8 L (41-53) % MCV 85.8 (80-100) fL MCH 29.4 (26-34) PG MCHC 34.3 (30-36) % RDW 13.5 (11.6-14.8) % Plt Count 162 (150-400) X10^3/uL Neut % (Auto) 69.1 (50-75) % Lymph % (Auto) 14.9 L (25-40) % [place] % (Auto) 10.3 (3-14) % Eos % (Auto) 4.9 H (2-4) % Baso % (Auto) 0.8 (0-2) % Neut # (Auto) 2900 (3829-0796) /uL Lymph # (Auto) 600 L (3512-0041) /uL [place] # (Auto) 400 (0-900) /uL Eos # (Auto) 200 (0-450) /uL Baso # (Auto) 0 (0-100) /uL APTT 27 (26-36) SECONDS Sodium 141 (137-145) mmol/L Potassium 4.0 (3.4-5.1) mmol/L Chloride 104 (98-107) mmol/L Carbon Dioxide 28 (22-32) mmol/L BUN 23 H (9-20) mg/dL Creatinine 0.75 (0.66-1.25) mg/dL Estimated GFR > 60 (>60) mL/min BUN/Creatinine Ratio 30.7 H (6-22) Glucose 101 (80-110) mg/dL Hemoglobin A1c (4.0-6.0) % Calcium 8.8 (8.4-10.2) mg/dL Magnesium (1.6-2.3) mg/dL Total Bilirubin 0.7 (0.2-1.3) mg/dL AST 21 (17-59) IU/L ALT 9 (<50) IU/L Alkaline Phosphatase 53 (38-126) U/L Total Creatine Kinase (55-170) U/L CK-MB (CK-2) CK-MB (CK-2) Rel Index Troponin I 0.090 H (0.01-0.034) ng/mL Total Protein 6.9 (6.3-8.2) g/dL Albumin 3.9 (3.5-5.0) g/dL Globulin 3.0 (1.7-4.1) g/dL Albumin/Globulin Ratio 1.3 (1.0-2.8) Lipase (23-300) U/L TSH (0.47-4.68) uIU/mL Urine RBC (0-5/HPF) Urine WBC (0-5/HPF) Urine Bacteria (None) Micro UA Comment SARS-CoV-2 (PCR) (Negative) 10/27/22 10/27/22 10/27/22 Range/Units 13:36 16:12 20:03 WBC (4.5-11.0) X10^3/uL RBC (4.5-5.9) X10^6/uL Hgb (13.5-17.5) g/dL Hct (41-53) % MCV (80-100) fL MCH (26-34) PG MCHC (30-36) % RDW (11.6-14.8) % Plt Count (150-400) X10^3/uL Neut % (Auto) (50-75) % Lymph % (Auto) (25-40) % [place] % (Auto) (3-14) % Eos % (Auto) (2-4) % Baso % (Auto) (0-2) % Neut # (Auto) (5692-1055) /uL Lymph # (Auto) (7739-8721) /uL [place] # (Auto) (0-900) /uL Eos # (Auto) (0-450) /uL Baso # (Auto) (0-100) /uL APTT 46 H D 55 H D (26-36) SECONDS Sodium (137-145) mmol/L Potassium (3.4-5.1) mmol/L Chloride (98-107) mmol/L Carbon Dioxide (22-32) mmol/L BUN (9-20) mg/dL Creatinine (0.66-1.25) mg/dL Estimated GFR (>60) mL/min BUN/Creatinine Ratio (6-22) Glucose (80-110) mg/dL Hemoglobin A1c (4.0-6.0) % Calcium (8.4-10.2) mg/dL Magnesium (1.6-2.3) mg/dL Total Bilirubin (0.2-1.3) mg/dL AST (17-59) IU/L ALT (<50) IU/L Alkaline Phosphatase (38-126) U/L Total Creatine Kinase (55-170) U/L CK-MB (CK-2) CK-MB (CK-2) Rel Index Troponin I 0.054 H (0.01-0.034) ng/mL Total Protein (6.3-8.2) g/dL Albumin (3.5-5.0) g/dL Globulin (1.7-4.1) g/dL Albumin/Globulin Ratio (1.0-2.8) Lipase (23-300) U/L TSH (0.47-4.68) uIU/mL Urine RBC (0-5/HPF) Urine WBC (0-5/HPF) Urine Bacteria (None) Micro UA Comment SARS-CoV-2 (PCR) (Negative) 10/28/22 10/28/22 10/28/22 Range/Units 02:02 09:15 09:15 WBC (4.5-11.0) X10^3/uL RBC (4.5-5.9) X10^6/uL Hgb (13.5-17.5) g/dL Hct (41-53) % MCV (80-100) fL MCH (26-34) PG MCHC (30-36) % RDW (11.6-14.8) % Plt Count (150-400) X10^3/uL Neut % (Auto) (50-75) % Lymph % (Auto) (25-40) % [place] % (Auto) (3-14) % Eos % (Auto) (2-4) % Baso % (Auto) (0-2) % Neut # (Auto) (0150-0389) /uL Lymph # (Auto) (4323-0903) /uL [place] # (Auto) (0-900) /uL Eos # (Auto) (0-450) /uL Baso # (Auto) (0-100) /uL APTT 55 H 56 H (26-36) SECONDS Sodium (137-145) mmol/L Potassium (3.4-5.1) mmol/L Chloride (98-107) mmol/L Carbon Dioxide (22-32) mmol/L BUN (9-20) mg/dL Creatinine (0.66-1.25) mg/dL Estimated GFR (>60) mL/min BUN/Creatinine Ratio (6-22) Glucose (80-110) mg/dL Hemoglobin A1c 5.4 (4.0-6.0) % Calcium (8.4-10.2) mg/dL Magnesium (1.6-2.3) mg/dL Total Bilirubin (0.2-1.3) mg/dL AST (17-59) IU/L ALT (<50) IU/L Alkaline Phosphatase (38-126) U/L Total Creatine Kinase (55-170) U/L CK-MB (CK-2) CK-MB (CK-2) Rel Index Troponin I (0.01-0.034) ng/mL Total Protein (6.3-8.2) g/dL Albumin (3.5-5.0) g/dL Globulin (1.7-4.1) g/dL Albumin/Globulin Ratio (1.0-2.8) Lipase (23-300) U/L TSH (0.47-4.68) uIU/mL Urine RBC (0-5/HPF) Urine WBC (0-5/HPF) Urine Bacteria (None) Micro UA Comment SARS-CoV-2 (PCR) (Negative) 10/28/22 10/28/22 Range/Units 09:15 09:15 WBC (4.5-11.0) X10^3/uL RBC (4.5-5.9) X10^6/uL Hgb (13.5-17.5) g/dL Hct (41-53) % MCV (80-100) fL MCH (26-34) PG MCHC (30-36) % RDW (11.6-14.8) % Plt Count (150-400) X10^3/uL Neut % (Auto) (50-75) % Lymph % (Auto) (25-40) % [place] % (Auto) (3-14) % Eos % (Auto) (2-4) % Baso % (Auto) (0-2) % Neut # (Auto) (6563-0607) /uL Lymph # (Auto) (8146-2567) /uL [place] # (Auto) (0-900) /uL Eos # (Auto) (0-450) /uL Baso # (Auto) (0-100) /uL APTT (26-36) SECONDS Sodium (137-145) mmol/L Potassium (3.4-5.1) mmol/L Chloride (98-107) mmol/L Carbon Dioxide (22-32) mmol/L BUN (9-20) mg/dL Creatinine (0.66-1.25) mg/dL Estimated GFR (>60) mL/min BUN/Creatinine Ratio (6-22) Glucose (80-110) mg/dL Hemoglobin A1c (4.0-6.0) % Calcium (8.4-10.2) mg/dL Magnesium 2.1 (1.6-2.3) mg/dL Total Bilirubin (0.2-1.3) mg/dL AST (17-59) IU/L ALT (<50) IU/L Alkaline Phosphatase (38-126) U/L Total Creatine Kinase (55-170) U/L CK-MB (CK-2) CK-MB (CK-2) Rel Index Troponin I (0.01-0.034) ng/mL Total Protein (6.3-8.2) g/dL Albumin (3.5-5.0) g/dL Globulin (1.7-4.1) g/dL Albumin/Globulin Ratio (1.0-2.8) Lipase (23-300) U/L TSH 2.59 (0.47-4.68) uIU/mL Urine RBC (0-5/HPF) Urine WBC (0-5/HPF) Urine Bacteria (None) Micro UA Comment SARS-CoV-2 (PCR) (Negative) Urine Dip Bedside Urine Glucose Negative Bedside Urine Bilirubin - Negative Bedside Urine Ketone - Negative Urine Specific [place] 1.030 Bedside Urine Occult Blood +/- Bedside Urine pH 6.0 Bedside Urine Protein + 30 Bedside Urine Urobilinogen - Negative Bedside Urine Nitrite - Negative Bedside Urine Leukocytes +/- 15 Esterase MDM Narrative Medical decision making narrative: EKG very difficult to get unable to get 1 last time due to his stimulator we were able to get 1 off the monitor. No obvious ST elevation there is obviously some stimulator artifact but no ST depression. 1st troponin is elevated 0.091 which is new from previous patient no longer having chest pain. Repeat troponin is 0.106. 3rd troponin is positive 0.1-3 patient remains chest pain free. He started on heparin drip There is no bed availability, places have not been called regionally with no availability. Mank 10/27/22: Patient signed out to myself by Dr. Rudolph. Patient had chest pain right-sided has had a new stress test a year ago no obvious ST changes on EKGs which were reviewed by myself. These have to be done off the monitor as patient has stimulator and the EKG machine itself will not cone picker. Patient troponin has been trending upwards. Patient is chest pain-free after being seen and evaluated by myself independently. He was started on heparin drip, nitro drip held as he is chest pain-free. Aspirin, home medications including his beta-vita and high-dose statin were ordered, patient notes he is actually on amlodipine 7.5 mg daily in the morning along with 50 mg of metoprolol and losartan twice daily. He did have some miss doses which is likely contributing to his elevated blood pressure this morning. Patient does have somewhat slow speech and flat affect consistent with Parkinson's history but is quite alert and appropriate. He is frustrated to be sitting here and re-reviewed that his heart enzyme is still trending upwards and I would not recommend that he leave until it is trending down words. Cardiology was consulted. Echo ordered and attempting to find placement at other facility that has inpatient cardiology available. Maki 10/28/22: Patient signed back out to myself by Dr. Rudolph from overnight. Patient was seen yesterday as well. He was here overnight uneventfully, he has had continuing downward trending troponins he has been on heparin for 30+ hours blood pressure still been somewhat elevated. He had echo obtained today. Case was discussed with cardiology Dr. Alcantara read his echo no acute abnormalities no focal wall motion abnormalities. His recommendations include stopping heparin if troponin still trending down words at 48 hours from initiation. Adding hydralazine 50 mg t.i.d. for blood pressure control. He does recommended new command stress test once off heparin for patient to risk stratify in terms of hypertensive urgency/emergency versus ACS. If patient's new med stress test is negative could be discharged home with follow-up with outpatient Cardiology if positive would still require cardiology evaluation and catheterization. Patient family were updated regarding these recommendations. I did also speak with Cardiology at [place], Dr. Quintero who recommends same plan currently. I spoke with Dr. Agustin our hospitalist who accepts for inpatient admission as patient will have been here for 2 midnights receiving inpatient care. I did also speak with the coordinator they are attempting to make sure that there is a slot for patient to have stress test tomorrow. <Kellie Gambino, DO - Last Filed: 10/28/22 19:30> Critical Care Time Critical Care Time: Yes Total Critical Care Time: 65 Attestation: The high probability of a clinically significant, sudden or life threatening deterioration of the [cardiac] system(s) required my full and direct attention, intervention and personal management. The aggregate critical care time was [] minutes. This time is in addition to time spent performing reported procedures but includes the following: [x] Data Review and interpretation [x] Patient assessment and monitoring of vital signs [x] Documentation [x] Medication orders and management Discharge Plan Departure Patient Disposition: Admitted As Inpatient Clinical Impression: Acute non-ST elevation myocardial infarction (NSTEMI) Admit Date/Time: 10/28/22 18:06 Admit Provider: Mateus Agustin
[2022-10-26 23:01] LABS: Troponin I 0.106 ng/mL (0.01-0.034)
[2022-10-27] VITALS (52 sets, daily range): BP systolic 142–207; BP diastolic 71–102; PULSE 54–82; RESP 13–45; TEMP 36.8; O2SAT 91–98
[2022-10-27 00:15] LABS: COVID19 -Nasal RAPID Negative (Negative)
[2022-10-27 00:58] LABS: Troponin I 0.123 ng/mL (0.01-0.034)
[2022-10-27 01:03] LABS: Bacteria Urine Few (2-10); RBC Urine 1-5/HPF (0-5/HPF); WBC Urine 30-100/HPF (0-5/HPF)
[2022-10-27] MEDS: HEPARIN 5,000 UNIT/ML VIAL 4000 UNIT IV (01:38)
[2022-10-27] MEDS: HEPARIN DRIP 25,000 UNIT/500 ML IV.SOLN 17.418 UNIT IV (01:39)
[2022-10-27 02:08] LABS: PTT Partial Thromboplastin Tim 27 SECONDS (26-36)
[2022-10-27 08:52] LABS: Add Manual Diff / Slide Review NO; Basophils Absolute Auto 0 /uL (0-100); Basophils Percent Auto 0.8 % (0-2); Eosinophils Absolute Auto 200 /uL (0-450); Eosinophils Percent Auto 4.9 % (2-4); Hematocrit 39.8 % (41-53); Hemoglobin 13.7 g/dL (13.5-17.5); Lymphocytes Absolute Auto 600 /uL (1100-4500); Lymphocytes Percent Auto 14.9 % (25-40); Mean Corpuscular HGB Conc 34.3 % (30-36); Mean Corpuscular Hemoglobin 29.4 PG (26-34); Mean Corpuscular Volume 85.8 fL (80-100); Monocytes Absolute Auto 400 /uL (0-900); Monocytes Percent Auto 10.3 % (3-14); Neutrophils Absolute Auto 2900 /uL (1500-7000); Neutrophils Percent Auto 69.1 % (50-75); Platelet Count 162 X10^3/uL (150-400); Red Blood Cell Count 4.65 X10^6/uL (4.5-5.9); Red Cell Distribution Width 13.5 % (11.6-14.8); White Blood Cell Count 4.2 X10^3/uL (4.5-11.0)
[2022-10-27 09:04] LABS: Alanine Aminotransferase 9 IU/L (<50); Albumin 3.9 g/dL (3.5-5.0); Albumin Globulin Ratio 1.3 (1.0-2.8); Alkaline Phosphatase 53 U/L (38-126); Aspartate Aminotransferase 21 IU/L (17-59); BUN Creatinine Ratio 30.7 (6-22); Bilirubin Total 0.7 mg/dL (0.2-1.3); Blood Urea Nitrogen 23 mg/dL (9-20); Calcium 8.8 mg/dL (8.4-10.2); Carbon Dioxide 28 mmol/L (22-32); Chloride 104 mmol/L (98-107); Estimated Glomerular Filt Rate > 60 mL/min (>60); Glucose 101 mg/dL (80-110); Sodium 141 mmol/L (137-145); Total Protein 6.9 g/dL (6.3-8.2)
[2022-10-27 09:09] LABS: HEMOLYSIS 64 (0-50)
[2022-10-27] MEDS: ASPIRIN 81 MG CHEW TAB 324 MG PO (09:18)
[2022-10-27] MEDS: CARBIDOPA-LEVODOPA ER 50/200 TABLET 1 EACH PO ×4 (09:19→22:09)
[2022-10-27] MEDS: CARBIDOPA-LEVODOPA 25/100 TABLET 1 EACH PO ×4 (09:19→22:44)
[2022-10-27] MEDS: LOSARTAN 50 MG TABLET PO ×2 (09:19→22:09)
[2022-10-27] MEDS: AMLODIPINE 5 MG TABLET 7.5 MG PO (09:20)
[2022-10-27] MEDS: METOPROLOL ER 50 MG TABLET PO ×2 (09:20→22:08)
[2022-10-27] MEDS: ATORVASTATIN 20 MG TABLET 80 MG PO (09:20)
[2022-10-27 14:06] LABS: PTT Partial Thromboplastin Tim 46 SECONDS (26-36)
[2022-10-27] MEDS: PANTOPRAZOLE 40 MG VIAL IV (14:23)
[2022-10-27 16:47] LABS: Troponin I 0.054 ng/mL (0.01-0.034)
[2022-10-27] MEDS: ACETAMINOPHEN 325 MG TABLET 975 MG PO (19:39)
[2022-10-27 20:21] LABS: PTT Partial Thromboplastin Tim 55 SECONDS (26-36)
[2022-10-28] VITALS (46 sets, daily range): BP systolic 139–199; BP diastolic 63–103; PULSE 50–78; RESP 11–54; TEMP 36.6; O2SAT 94–98; BMI 22.9
[2022-10-28 02:20] LABS: PTT Partial Thromboplastin Tim 55 SECONDS (26-36)
[2022-10-28] MEDS: HEPARIN DRIP 25,000 UNIT/500 ML IV.SOLN 18.418 UNIT IV (03:20)
--- NOTE | 2022-10-28 04:45 | PC.NURSE ---
0300: received report from Daniela LARA. Pt resting in bed. Confused and getting up frequently and removing his monitoring and walking to the bathroom. Gait appears steady. Heparin infusing per JAN and next PTT 0800. Pt c/o being hot. Assisted with removal of pajama pants. Temp 98.7.
--- NOTE | 2022-10-28 09:17 | DI.ECHO.S_ITS ---
[facility]---------+ [facility] +---------+ : : [address] : [place] : : : : [id number] : : : : Phone: [phone]+ Echocardiogram Report + + :Name: ASHLEY CONNELLY V Study Date: 10/28/2022 Height: 70 in : :[facility] ReadingLocation: Weight: 160 lb : : Gender: Male BSA: 1.9 m2 : :: 1945 Age: 77 yrs BP: 177/84 mmHg: :Reason For Study: IL : : Performed By: Thiago Nath : :Referring: LISA DE LA ROSA : + + Interpretation Summary 1) Mildly increased left ventricular thickness (concentric) with normal size, normal wall motion, and normal systolic function (EF 60-65%). 2) Normal right ventricular size and function. 3) There is mild aortic regurgitation. 4) Hypertension present during the study (BP 177/84mmHg). 5) Compared to the Echo done 03/15/2021, no significant change. Procedure: A two-dimensional transthoracic echocardiogram with color flow and Doppler was performed. The study quality was technically good. Comparison is made with the echocardiogram of 03/15/21. The patient was in normal sinus rhythm during the exam. The patient was bradycardic with a heart rate of 51-58 beats per minute. Left Ventricle: The left ventricle is normal in size. Left ventricular wall thickness is mildly increased. The ejection fraction is estimated to be 60- 65%. There are no focal wall motion abnormalities. Diastolic parameters suggest a relaxation abnormality of the left ventricle, consistent with probable normal filling pressures. Right Ventricle: The right ventricle is normal in size and function. Atria: The left atrium is moderately dilated. Right atrial size is normal. There is no Doppler evidence for an atrial septal defect. Mitral Valve: There is mild mitral annular calcification. There is trace mitral regurgitation. Aortic Valve: The aortic valve is trileaflet. The aortic valve is mildly calcified. There is mildly reduced leaflet mobility. There is no aortic valve stenosis. There is mild aortic regurgitation. Tricuspid Valve: The tricuspid valve is normal in structure and function. There is mild tricuspid regurgitation. The right ventricular systolic pressure is estimated to be at least 28 mmHg based on an estimated right atrial pressure of 8 mm Hg. Pulmonic Valve: The pulmonic valve is normal in structure and function. There is trace pulmonic regurgitation. Great Vessels: The aortic root is normal size. The ascending aorta is mildly enlarged. The pulmonary artery is normal size. The IVC is dilated (diameter is greater than 2.1 cm) yet it collapses greater than 50% with a sniff. This suggests a right atrial pressure of 8 mm Hg. Pericardium/ Pleura There is no pericardial effusion. There is no pleural effusion. MMode/2D Measurements & Calculations LVIDd: 4.4 cm LVOT diam: 2.2 cm LVIDs: 2.7 cm Ao root diam: 3.7 cm FS: 39.3 % asc Aorta Diam: 3.6 cm EPSS: 0.16 cm Ao Arch Diam (Prox Trans): 2.4 cm IVSd: 1.1 cm LVPWd: 1.1 cm LV garrido. diameter/BSA (cm/m^2): 2.3 LV sys. diameter/BSA (cm/m^2): 1.4 LA A2 area: 21.0 cm2 RA long axis: 5.2 cm LA A4 area: 25.7 cm2 RA area: 18.5 cm2 LA length (vol): 5.5 cm RA vol: 56.0 ml LA vol: 83.2 ml RA : 29.5 ml/m2 LA vol index: 43.8 ml/m2 IVC diam: 2.2 cm TAPSE: 2.1 cm Doppler Measurements & Calculations Ao V2 max: 187.2 cm/sec LVOT Max Jamla: 132.3 cm/sec Ao V2 mean: 142.5 cm/sec LV V1 max P.0 mmHg Ao max P.0 mmHg LV V1 VTI: 30.3 cm Ao mean P.9 mmHg CLARENCE(I,D): 2.7 cm2 Ao V2 VTI: 41.8 cm CLARENCE(V,D): 2.6 cm2 sev ratio: 0.73 CLARENCE indexed to BSA (cm^2/m^2): 1.4 AI P1/2t: 760.2 msec AI dec slope: 152.9 cm/sec2 MV E max jamal: 47.5 cm/sec TR max jamal: 221.6 cm/sec MV A max jamal: 67.5 cm/sec TR max P.6 mmHg MV E/A: 0.70 PA V2 max: 78.9 cm/sec Med Peak E' Jamal: 3.6 cm/sec PA V2 mean: 52.1 cm/sec E/E' med: 13.3 PA mean P.2 mmHg Lat Peak E' Jamal: 5.2 cm/sec PA pr(Accel): 39.6 mmHg E/E' lat: 9.2 E/e' average: 11.2 MV dec time: 0.20 sec SV([facility]): 112.9 ml Reading Physician:01:47 PM
[2022-10-28] MEDS: ASPIRIN 81 MG CHEW TAB 324 MG PO (09:31)
[2022-10-28] MEDS: ATORVASTATIN 20 MG TABLET 80 MG PO (09:34)
[2022-10-28] MEDS: AMLODIPINE 5 MG TABLET 7.5 MG PO (09:36)
[2022-10-28] MEDS: METOPROLOL ER 50 MG TABLET PO ×2 (09:38→22:29)
[2022-10-28] MEDS: LOSARTAN 50 MG TABLET PO ×2 (09:38→22:28)
[2022-10-28 09:40] LABS: PTT Partial Thromboplastin Tim 56 SECONDS (26-36)
[2022-10-28] MEDS: CARBIDOPA-LEVODOPA ER 50/200 TABLET 1 EACH PO ×3 (09:40→20:24)
[2022-10-28] MEDS: CARBIDOPA-LEVODOPA 25/100 TABLET 1 EACH PO ×3 (09:41→20:24)
[2022-10-28] MEDS: PANTOPRAZOLE 40 MG VIAL IV (09:41)
--- NOTE | 2022-10-28 11:18 | PC.NURSE ---
PTT 56, Target Range, no change to heparin rate, next PTT is next AM per policy. Verified with Sharon LARA.
--- NOTE | 2022-10-28 16:19 | PC.NURSE ---
Left message with dietary regarding patient meal requests for 10/29.
[2022-10-28] MEDS: HYDRALAZINE 25 MG TABLET 50 MG PO ×2 (16:22→22:28)
[2022-10-28 18:58] LABS: Magnesium 2.1 mg/dL (1.6-2.3)
[2022-10-28 19:02] LABS: Hemoglobin A1C% w Est Avg Glu 5.4 % (4.0-6.0)
[2022-10-28 19:31] LABS: TSH w/ Reflex to FT4 2.59 uIU/mL (0.47-4.68)
--- NOTE | 2022-10-28 22:01 | P.HP_ITS ---
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 Patient did note that he had done some heavy moving of boxes the day prior. Patient had nuclear med stress test/echo January 2021. Patient initially presented in the ED mildly hypertensive BP 173/77, with escalating troponins 0.091, repeat 0.106, peaking on 10/27/2022: 0.123, repeat 0.090, with nonradiating, right-sided chest pain, without shortness of breath, no prior cardiac history. Patient's essential hypertension/labile hypertension is managed at the [facility]. patient was placed on a heparin drip echocardiogram was completed. Echo: 02/2022 Within normal limits EF 60-65%, echo results unchanged from February 2021. Cardiology was consulted after inability to transfer patient for NSTEMI, Cardiology recommended the patient remain in the hospital for nuclear med stress test, if normal DC tomorrow. Patient remained in ED from October 26 through October 28, 2022 following failure to transfer for NSTEMI to a hospital with Cardiology patient was then admitted to ED following Cardiology consult and recommendations. Last labs drawn in ED with the exception PTT for heparin drip monitoring protocol, 10/27/2022 WBC 4.2, H&H, 13.7/38.9, potassium stable 4.0, slightly elevated but improving BUN 23, creatinine normal 0.73, GFR>60, last PTT 56- 0915 10/28/2022 continues on heparin drip, negative COVID. Head CT was negative for any acute intracranial abnormalities, chest x-ray nodule opacity with right upper lung zone. Upon admit to the floor patient chest pain, headache, shortness of breath has resolved. Patient currently denies headache, changes in vision, chest pain, shortness breath, diaphoresis, fever, body aches, chills, cough, respiratory symptoms, recent illness, abdominal pain, nausea, vomiting, diarrhea, hematemesis, hematuria, melena, urinary: frequency urgency dysuria, retention, skin wounds or infection, recent illness injury or trauma. Patient admitted to acute care under the hospitalist service after failing to be transferred for NSTEMI/myocardial injury with chest pain at rest, with mild hypertension, and leukocytopenia of unknown etiology. Initial admit labs ordered 12/29/2021: A1c 5.4, Mag 2.1, TSH 2.5, continue troponin monitoring, down trending was 0.090, current repeat today 0.054. Additional labs/diagnostic orders once patient transferred to floor - nuclear stress test, influenza a/B/RSV, continue troponin downtrending, BNP, CBC, CMP, and PSA. Patient History Medical History Chronic low back pain with sciatica CVA (cerebral vascular accident) Hairy cell leukemia Headache Hypertension Paresthesias in left hand Parkinsons disease Surgical History History of tonsillectomy S/P deep brain stimulator placement S/P TURP Family & Social History Social History: household members spouse Prior Living Arrangements House Safety & Behavioral: Feels Safe in Current Yes Environment Been Physically Hurt or No Threatened By a Person Tobacco & Substance use: Smoking Status Former smoker alcohol intake current alcohol intake frequency holiday/special occasion Substance Use Type does not use Meds Home Medications and Allergies Home Medications Medication Instructions Recorded Confirmed Type carbidopa ER 50 mg-levodopa 200 mg 1 tab PO QID 04/08/18 10/27/22 History tablet,extended release acetaminophen 325 mg tablet 325 mg PO Q6H PRN Pain (Scale 06/26/18 10/27/22 History (Tylenol) Score 1-3) Disabled Parking #1 ea 03/05/19 10/29/22 Rx carbidopa 25 mg-levodopa 100 mg 25 - 100 tab PO QID PRN 07/14/20 10/27/22 History disintegrating tablet parkinson's symptoms losartan 50 mg tablet 50 mg PO BID #180 tabs 02/02/21 10/27/22 Rx metoprolol succinate 50 mg 50 mg PO BID #90 tabs 02/16/22 10/27/22 Rx tablet,extended release 24 hr amlodipine 5 mg tablet 2.5 mg PO DAILY 10/27/22 10/27/22 History Allergies Allergy/AdvReac Type Severity Reaction Status Date / Time adhesive tape Allergy Intermediate Blister Verified 04/14/21 15:39 cefuroxime Allergy Mild rash/ Verified 04/14/21 15:39 itching codeine [CODEINE] Allergy Mild NAUSEA Verified 04/14/21 15:39 clindamycin AdvReac N/V Verified 04/14/21 15:39 Review of Systems Review of Systems Narrative: All 12 point systems reviewed with the patient and are negative except otherwise documented. Exam Vital Signs (past 8 hours): - 10/28/22 15:00 10/28/22 15:29 10/28/22 15:30 Temperature Pulse Rate 60 55 L Respiratory Rate 20 20 Blood Pressure 158/77 H 158/73 H Pulse Oximetry Oxygen Delivery Method 10/28/22 15:30 10/28/22 16:00 10/28/22 16:00 Temperature Pulse Rate 56 L 58 L Respiratory Rate 19 21 Blood Pressure 173/77 H Pulse Oximetry Oxygen Delivery Method 10/28/22 16:22 10/28/22 16:30 10/28/22 17:00 Temperature Pulse Rate 60 64 78 Respiratory Rate Blood Pressure 173/77 H Pulse Oximetry Oxygen Delivery Method 10/28/22 17:30 10/28/22 17:43 10/28/22 17:44 Temperature Pulse Rate 70 72 72 Respiratory Rate 27 H 18 54 H Blood Pressure 139/67 Pulse Oximetry 97 97 Oxygen Delivery Method Room Air 10/28/22 17:44 10/28/22 18:00 10/28/22 18:00 Temperature Pulse Rate 69 Respiratory Rate Blood Pressure 139/67 139/63 Pulse Oximetry 96 Oxygen Delivery Method Room Air 10/28/22 18:30 10/28/22 19:00 10/28/22 21:06 Temperature 97.8 F Pulse Rate 77 75 69 Respiratory Rate 17 Blood Pressure 148/69 H Pulse Oximetry 96 Oxygen Delivery Method Oxygen Delivery Method Room Air Narrative Exam Narrative: General: Patient is a well-developed, well-nourished in no distress at this time. HEENT: Normocephalic, atraumatic, extraocular muscles intact, oral pharynx is clear and mucous membranes are moist. Neck is supple and symmetric, trachea is midline, no adenopathy, no thyroid enlargement, nontender, no masses palpated. Negative for JVD Chest: Normal AP diameter and contour without kyphoscoliosis, no nasal flaring, retractions, or tachypneic labored Lungs: Auscultation of all lung golden are clear without adventitious sounds, wheezes, rhonchi, or rales. Cardio: regular rate and rhythm without rubs, or gallops, no carotid bruit, no cardiac pulsations present. 2/6 systolic ejection murmur over RUSB Abdomen: Soft nontender, negative for organomegaly, or masses. Bowel sounds are present in all 4 quadrants without guarding or rebound, no CVA tenderness. Musculoskeletal: Muscle strength and tone are equal within normal limits, no deformity, crepitus, effusions, cyanosis, clubbing or edema present. Full range of motion intact radial and pedal pulses are normal. Skin: Warm dry and intact without rashes, ulcerations or petechiae. Neuro: Alert and orientated x3, strength is +5/5 in all extremities, sensation to touch intact, no gross deficits noted of cranial nerves. Parkinsonian type features Psych: Patient has a well-kept appearance, appropriate affect, mental status attitude thought context and judgment are appropriate for age. 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 Patient initially presented in the ED mildly hypertensive BP 173/77, with escalating troponins 0.091, repeat 0.106, peaking on 10/27/2022: 0.123, repeat 0.090, with nonradiating, right-sided chest pain, without shortness of breath, no prior cardiac history. Patient admitted to acute care under the hospitalist service after failing to be transferred for NSTEMI/myocardial injury with chest pain at rest, with mild hypertension, and leukocytopenia of unknown etiology. 1. NSTEMI/myocardial injury with chest pain at rest, acute, with mild hypertension, acute on chronic, present on admission-Stable -chest pain, hypertension, neck pain, SOB, headache-resolved at time of admit stable -unable to obtain patient transfer to facility with cardiac support. -Additional labs/diagnostic orders once patient transferred to floor - nuclear stress test, influenza a/B/RSV, continue troponin downtrending, BNP, CBC, CMP, and PSA. -Patient remained in ED 10/26-10/28/2022 following failure to transfer for NSTEMI. admitted to [facility] following Cardiology consult 10/28/2022 -Cardiology recommended the patient remain in the hospital for nuclear med stress test, if normal DC tomorrow -continue patient on heparin drip, follow trop down trend then stop drip in am. -In ED: troponins 0.091, repeat 0.106, peak 10/27/2022: 0.123, repeat 0.090- 10/28/2022 0.054-continue to trend x 3. -ED mildly hypertensive BP 173/77, with escalating , with nonradiating, right- sided chest pain -nuclear med stress test/echo January 2021:Echo: 10/28/2022, EF 60-65%, echo results unchanged from February 2021. 2. Essential hypertension, labile hypertension, with mild elevation in ED, aortic regurgitation, acute on chronic, present on admission -initial presenting BP in ED 173/77 -on admit temp 97.8?, BP 140/69, HR 69, R 17, O2 saturation 96% on room air -2/6 systolic ejection murmur over RUSB -continue patient's metoprolol, amlodipine, losartan -[facility] -patient placed on telemedicine -Mag and potassium were stable Mag 2.1, potassium 4.0-continue to trend electrolytes -managed on telemedicine 3. Leukocytopenia, acute, present on admission-unknown etiology -Likely secondary to Cancer -WBC 4.2 -with known history of prostate cancer and classical hairy cell leukemia (HCL) in 2008,Last tx 2008. He achieved a near complete response. He has been under active surveillance since. - chest x-ray nodule opacity with right upper lung zone. -negative for influenza a/B/RSV/COVID 4. Hx of prostate cancer, GS 6, involving the left lobe, status post radiotherapy in 2016, chronic, BPH with history of TURP, chronic, Present on admission -with no recurrence since 2018, but with obstructive uropathy -Managed by Dr. Nicholas. -Continue Flomax 5. Parkinson's dementia, with severe tremor, InterStim deep brain placement, chronic, present on admission -neurostimulator deep brain in place -continue carb levodopa -managed by Dr. Alonso at [facility] 6. Classical hairy cell leukemia, chronic, present on admission Managed by Dr. Reynolds oncology 7. Malnutrition, mild, acute on chronic, present on admission -patient's malnutrition places them at high risk for medical and surgical complications because of the severe malnutrition in relation to acute illness/chronic illness. This increases the difficulty in complexity of medical management and increases the chances poor outcomes such as mortality and morbidity as well as impaired wound healing, and immune suppression. -dietary consult ordered to evaluate and implement steps to improve caloric intake and nutrition. Code status:Full Surrogate decision maker: Elvie Rivas COVID PCR:Negative COVID vaccination: DVT/VTE prophylaxis: Disposition: I have utilized all available immediate resources to obtain, update, or review the patient's current medications. I confirmed that the patient's advanced care plan is present, Code status is documented and/or surrogate decision maker is listed in the patient's medical record. I have personally reviewed patient's chart notes from PCP, specialists, diagnostic imaging, and laboratory, Time Spent With Patient Critical Care time: I spent a total of [] minutes of critical care time on this patient's care today; this time is exclusive of procedural time. Quality VTE Deep Vein Thrombosis/Pulmonary Embolism Present on Admission: No
[2022-10-28] MEDS: ACETAMINOPHEN 325 MG TABLET 650 MG PO (22:27)
[2022-10-29 05:38] VITALS: BP 151/112; BP 175/116; PULSE 68; RESP 16; TEMP 36.4; O2SAT 96
[2022-10-29 06:21] LABS: Influenza A - CEPHEID Flu A NEGATIVE (NEGATIVE); Influenza B - CEPHEID Flu B NEGATIVE (NEGATIVE); Respiratory Syncytial Virus NEGATIVE (Not Detect)
[2022-10-29 06:35] LABS: BUN Creatinine Ratio 26.7 (6-22); Blood Urea Nitrogen 23 mg/dL (9-20); Carbon Dioxide 25 mmol/L (22-32); Chloride 103 mmol/L (98-107); Estimated Glomerular Filt Rate > 60 mL/min (>60); Glucose 90 mg/dL (80-110); HEMOLYSIS 29 (0-50); Potassium 3.6 mmol/L (3.4-5.1); Sodium 137 mmol/L (137-145)
[2022-10-29 06:42] LABS: Add Manual Diff / Slide Review NO; Basophils Absolute Auto 0 /uL (0-100); Basophils Percent Auto 0.7 % (0-2); Eosinophils Absolute Auto 200 /uL (0-450); Eosinophils Percent Auto 3.6 % (2-4); Hematocrit 39.4 % (41-53); Hemoglobin 13.9 g/dL (13.5-17.5); Lymphocytes Absolute Auto 800 /uL (1100-4500); Lymphocytes Percent Auto 16.9 % (25-40); Mean Corpuscular HGB Conc 35.2 % (30-36); Mean Corpuscular Hemoglobin 30.1 PG (26-34); Mean Corpuscular Volume 85.3 fL (80-100); Monocytes Absolute Auto 500 /uL (0-900); Monocytes Percent Auto 9.6 % (3-14); Neutrophils Absolute Auto 3300 /uL (1500-7000); Neutrophils Percent Auto 69.2 % (50-75); Platelet Count 104 X10^3/uL (150-400); Red Blood Cell Count 4.61 X10^6/uL (4.5-5.9); Red Cell Distribution Width 13.3 % (11.6-14.8); White Blood Cell Count 4.8 X10^3/uL (4.5-11.0)
[2022-10-29 06:44] LABS: NT-proBNP (BNP-Adult 18+) 212 pg/mL (<450)
[2022-10-29 06:47] LABS: Troponin I 0.047 ng/mL (0.01-0.034)
[2022-10-29] MEDS: ACETAMINOPHEN 325 MG TABLET 650 MG PO (06:51)
[2022-10-29] MEDS: PANTOPRAZOLE DR 20 MG TABLET PO (06:51)
[2022-10-29] MEDS: CARBIDOPA-LEVODOPA 25/100 TABLET 1 EACH PO (06:52)
[2022-10-29] MEDS: CARBIDOPA-LEVODOPA ER 50/200 TABLET 1 EACH PO ×2 (07:04→13:32)
[2022-10-29 07:09] LABS: PTT Partial Thromboplastin Tim 52 SECONDS (26-36)
--- NOTE | 2022-10-29 07:27 | P.DS_ITS ---
History of Present Illness History of Present Illness Date Patient Seen: 10/29/22 Time Patient Seen: 11:00 Chief complaint: Chest/Head pain Narrative: Olu Rivas is a 77-year-old male with a history of prostate cancer/TURP/BPH, Parkinson's disease with dementia possibly, and severe tremor with implant of deep brain neurostimulator, history of essential hypertension/labile hypertension, aortic regurgitation, history of CVA history classical hairy cell leukemia in remission, chronic low back pain with sciatica, GERD who presented to the ED with right-sided chest pain that was dull ache without radiation on October 26, 2022 in addition to neck pain, headache possibly tension, without shortness of breath, diaphoresis, denied history of coronary artery disease. Patient did note that he had done some heavy moving of boxes the day prior. Patient had nuclear med stress test/echo January 2021. Patient initially presented in the ED mildly hypertensive BP 173/77, with escalating troponins 0.091, repeat 0.106, peaking on 10/27/2022: 0.123, repeat 0.090, with nonradiating, right-sided chest pain, without shortness of breath, no prior cardiac history. Patient's essential hypertension/labile hypertension is managed at the [facility]. patient was placed on a heparin drip echocardiogram was completed. Echo: 02/2022 Within normal limits EF 60-65%, echo results unchanged from February 2021. Cardiology was consulted after inability to transfer patient for NSTEMI, Cardiology recommended the patient remain in the hospital for nuclear med stress test, if normal DC tomorrow. Patient remained in ED from October 26 through October 28, 2022 following failure to transfer for NSTEMI to a hospital with Cardiology patient was then admitted to ED following Cardiology consult and recommendations. Last labs drawn in ED with the exception PTT for heparin drip monitoring protocol, 10/27/2022 WBC 4.2, H&H, 13.7/38.9, potassium stable 4.0, slightly elevated but improving BUN 23, creatinine normal 0.73, GFR>60, last PTT 56- 0915 10/28/2022 continues on heparin drip, negative COVID. Head CT was negative for any acute intracranial abnormalities, chest x-ray nodule opacity with right upper lung zone. Patient admitted to acute care under the hospitalist service after failing to be transferred for NSTEMI/myocardial injury with chest pain at rest, with mild hypertension, and leukocytopenia of unknown etiology. Initial admit labs ordered 12/29/2021: A1c 5.4, Mag 2.1, TSH 2.5, continue troponin monitoring, down trending was 0.090, current repeat today 0.054. Additional labs/diagnostic orders once patient transferred to floor - nuclear stress test, influenza a/B/RSV, continue troponin downtrending, BNP, CBC, CMP, and PSA. Upon admit to the floor patient chest pain, headache, shortness of breath has resolved. Patient currently denies headache, changes in vision, chest pain, shortness breath, diaphoresis, fever, body aches, chills, cough, respiratory symptoms, recent illness, abdominal pain, nausea, vomiting, diarrhea, hematemesis, hematuria, melena, urinary: frequency urgency dysuria, retention, skin wounds or infection, recent illness injury or trauma. Discharge Providers Provider Date of admission: 10/28/22 18:06 Discharge Date: 10/29/22 Primary care physician: Anson Benitez MD Consults: 10/28/22 20:46 Consult to Pastoral Services Routine Comment: if I'm still here it'd be nice if they checked in 10/28/22 21:46 Consult to Dietitian, Adult Routine Comment: Reason For Exam: BMI 23 Consult to Discharge Planning Routine Comment: Will outpt Cardio f/u Consult to Occupational Therapy Evaluate & Treat Comment: for d/c Physician Instructions: Evaluate and treat 10/28/22 21:47 Consult to Physical Therapy Evaluate & Treat Comment: d/c Physician Instructions: Evaluate and Treat Discharge provider: Mateus Agustin DO Summary Hospital Course Discharge Diagnosis: 1. NSTEMI/myocardial injury with chest pain at rest, acute, with mild h ypertension, acute on chronic, present on admission-Stable -chest pain, hypertension, neck pain, headache-resolved at time of admit stable -unable to obtain patient transfer to facility with cardiac support. -Patient remained in ED 10/26-10/28/2022 following failure to transfer for NSTEMI. admitted to [facility] following Cardiology consult 10/28/2022 -In ED:? troponins 0.091, repeat 0.106, peak 10/27/2022: 0.123, repeat 0.090- 10/28/2022 0.054-continue to trend x 3. -ED mildly hypertensive BP 173/77, with escalating , with nonradiating, right- sided chest pain -nuclear med stress test/echo January 2021:Echo: 10/28/2022, EF 60-65%, echo results unchanged from February 2021. -stress test was reassuring of no new ischemia 2. Essential hypertension, labile hypertension, with mild elevation in ED, aortic regurgitation, acute on chronic, present on admission -initial presenting BP in ED 173/77 -on admit temp 97.8?, BP 140/69, HR 69, R 17, O2 saturation 96% on room air -2/6 systolic ejection murmur over RUSB -continue patient's metoprolol, amlodipine, losartan -[facility] -[facility] placed on telemedicine -Mag and potassium were stable Mag 2.1, potassium 4.0-continue to trend electrolytes 3. Leukocytopenia, acute, present on admission-unknown etiology -with known history of prostate cancer and classical hairy cell leukemia (HCL) in 2008,Last tx 2008. He achieved a near complete response. He has been under active surveillance since. -April 2017, he underwent a repeat bone marrow aspiration biopsy that showed an increased degree of abnormal B-cell population compared to the old bone marrow, again as CD10 positive variant, but negative for CD103, strongly positive for CD20. -Over time, patient developed slowly progressive worsening neutropenia. -platelet counts seemed to be stable in the mid 60s in April of 2017. On 06/26/2018, he was started on weekly Rituxan and completed a total of 8 cycles on 08/14/2018. His 1st cycle of the Rituxan had to be split between and the coming Saturday due to reaction on . On the next Saturday patient tolerated the dosage extremely well without any reactions.? Hospital Course: Admitted for left sided neck pain and found to have elevated trop, so boarded in the ED on a heparin drip for 24 hours to attempt transfer due to an elevated troponin up to 0.123 which then downtrended to 0.037. Cardiology recommended admission for cardiac stress test given his echo results were reassuring and unchanged. He finished 48 hours of heparin then underwent stress test which was also reassuring and showed no evidence of new ischemia. Per cardiology it was safe to dc home if stress test was normal. Time Spent with Patient Time spent: Greater than 30 minutes Exam Vital Signs (past 8 hours): - 10/29/22 05:38 10/29/22 05:38 Temperature 97.6 F Pulse Rate 68 Pulse Rate [Orthostatic Lying] 68 Respiratory Rate 16 Blood Pressure 175/116 H Blood Pressure [Orthostatic Lying] 151/112 H Pulse Oximetry 96 Oxygen Delivery Method Room Air Narrative Exam Narrative: General: Patient is a well-developed, well-nourished in no distress at this time. HEENT: Normocephalic, atraumatic, extraocular muscles intact, oral pharynx is clear and mucous membranes are moist. Neck is supple and symmetric, trachea is midline, no adenopathy, no thyroid enlargement, nontender, no masses palpated. Negative for JVD Chest: Normal AP diameter and contour without kyphoscoliosis, no nasal flaring, retractions, or tachypneic labored Lungs: Auscultation of all lung golden are clear without adventitious sounds, wheezes, rhonchi, or rales. Cardio: regular rate and rhythm without rubs, or gallops, no carotid bruit, no cardiac pulsations present. 2/6 systolic ejection murmur over RUSB Abdomen: Soft nontender, negative for organomegaly, or masses. Bowel sounds are present in all 4 quadrants without guarding or rebound, no CVA tenderness. Musculoskeletal: Muscle strength and tone are equal within normal limits, no deformity, crepitus, effusions, cyanosis, clubbing or edema present. Full range of motion intact radial and pedal pulses are normal. Skin: Warm dry and intact without rashes, ulcerations or petechiae. Neuro: Alert and orientated x3, strength is +5/5 in all extremities, sensation to touch intact, no gross deficits noted of cranial nerves. Parkinsonian type features Psych: Patient has a well-kept appearance, appropriate affect, mental status attitude thought context and judgment are appropriate for age. Objective Labs Result Diagrams: 10/29/22 05:40 10/29/22 05:40 Labs: Laboratory Results - last 24 hr 10/28/22 10/28/22 10/28/22 09:15 09:15 09:15 WBC RBC Hgb Hct MCV MCH MCHC RDW Plt Count Neut % (Auto) Lymph % (Auto) [place] % (Auto) Eos % (Auto) Baso % (Auto) Neut # (Auto) Lymph # (Auto) [place] # (Auto) Eos # (Auto) Baso # (Auto) APTT 56 H Sodium Potassium Chloride Carbon Dioxide BUN Creatinine Estimated GFR BUN/Creatinine Ratio Glucose Hemoglobin A1c 5.4 Calcium Magnesium 2.1 Troponin I NT-Pro-B Natriuret Pep TSH Influenza A (RT-PCR) Influenza B (RT-PCR) RSV (PCR) 10/28/22 10/29/22 10/29/22 09:15 05:05 05:40 WBC RBC Hgb Hct MCV MCH MCHC RDW Plt Count Neut % (Auto) Lymph % (Auto) [place] % (Auto) Eos % (Auto) Baso % (Auto) Neut # (Auto) Lymph # (Auto) [place] # (Auto) Eos # (Auto) Baso # (Auto) APTT Sodium Potassium Chloride Carbon Dioxide BUN Creatinine Estimated GFR BUN/Creatinine Ratio Glucose Hemoglobin A1c Calcium Magnesium Troponin I NT-Pro-B Natriuret Pep 212 TSH 2.59 Influenza A (RT-PCR) Flu a negative Influenza B (RT-PCR) Flu b negative RSV (PCR) Negative 10/29/22 10/29/22 10/29/22 05:40 05:40 05:40 WBC 4.8 RBC 4.61 Hgb 13.9 Hct 39.4 L MCV 85.3 MCH 30.1 MCHC 35.2 RDW 13.3 Plt Count 104 L Neut % (Auto) 69.2 Lymph % (Auto) 16.9 L [place] % (Auto) 9.6 Eos % (Auto) 3.6 Baso % (Auto) 0.7 Neut # (Auto) 3300 Lymph # (Auto) 800 L [place] # (Auto) 500 Eos # (Auto) 200 Baso # (Auto) 0 APTT 52 H Sodium 137 Potassium 3.6 Chloride 103 Carbon Dioxide 25 BUN 23 H Creatinine 0.86 Estimated GFR > 60 BUN/Creatinine Ratio 26.7 H Glucose 90 Hemoglobin A1c Calcium 9.0 Magnesium Troponin I NT-Pro-B Natriuret Pep TSH Influenza A (RT-PCR) Influenza B (RT-PCR) RSV (PCR) 10/29/22 05:40 WBC RBC Hgb Hct MCV MCH MCHC RDW Plt Count Neut % (Auto) Lymph % (Auto) [place] % (Auto) Eos % (Auto) Baso % (Auto) Neut # (Auto) Lymph # (Auto) [place] # (Auto) Eos # (Auto) Baso # (Auto) APTT Sodium Potassium Chloride Carbon Dioxide BUN Creatinine Estimated GFR BUN/Creatinine Ratio Glucose Hemoglobin A1c Calcium Magnesium Troponin I 0.047 H NT-Pro-B Natriuret Pep TSH Influenza A (RT-PCR) Influenza B (RT-PCR) RSV (PCR) PFSH Medical History Chronic low back pain with sciatica CVA (cerebral vascular accident) Hairy cell leukemia Headache Hypertension Paresthesias in left hand Parkinsons disease Surgical History History of tonsillectomy S/P deep brain stimulator placement S/P TURP Social History household members: spouse Smoking Status: Former smoker alcohol intake: current substance use type: does not use Discharge Plan Discharge Plan Patient Disposition: Home Health Service Provider Discharge Comment: You were admitted because of chest pain and an elevated heart enzyme. You were treated with 48 hours heparin for this. Your heart ultrasound and stress test were reassuring that no damage was found in your heart. Continue taking a baby aspirin daily. Discharge orders & Medications Prescriptions: Continued carbidopa-levodopa 50-200 mg tablet extended release 1 tab PO QID Label Comments: patient states takes 2 to 5 daily. (DME) Disabled Parking 0 .ROUTE .MEDSUPPLY Qty: 1 0RF Rx Instructions: As directed metoprolol succinate 50 mg tablet extended release 24 hr 50 mg PO BID Qty: 90 1RF losartan 50 mg tablet 50 mg PO BID Qty: 180 3RF carbidopa-levodopa 25-100 mg tablet,disintegrating 25 - 100 tab PO QID PRN (Reason: parkinson's symptoms) acetaminophen [Tylenol] 325 mg Tablet 325 mg PO Q6H PRN (Reason: Pain (Scale Score 1-3)) amlodipine 5 mg tablet 2.5 mg PO DAILY Rx Instructions: increase to 7.5mg daily if blood pressure above 140/90 daily. Follow up/Referrals: Anson Benitez MD [Primary Care Provider] - 2 Weeks Visit Report/Discharge Packet Instructions: DI for Heart Attack, Myocardial Perfusion Imaging, How to Prevent Falls, DI for Chest Pain Discharge Data Primary Care Provider: Anson Benitez VTE Deep Vein Thrombosis/Pulmonary Embolism Present on Admission: No
[2022-10-29 07:32] LABS: Cholesterol 171 mg/dL (140-199); HDL Cholesterol 32 mg/dL (40-60); LDL Cholesterol Calculated 117 mg/dL (<100); Triglycerides 108 mg/dL (35-150)
[2022-10-29 09:00] VITALS: BP 139/67; PULSE 59
[2022-10-29] MEDS: ASPIRIN EC 81 MG TABLET PO (09:00)
[2022-10-29] MEDS: LOSARTAN 50 MG TABLET PO (09:00)
[2022-10-29] MEDS: AMLODIPINE 5 MG TABLET 2.5 MG PO (09:00)
[2022-10-29 09:01] VITALS: BP 139/67; PULSE 59
[2022-10-29] MEDS: METOPROLOL ER 50 MG TABLET PO (09:01)
--- NOTE | 2022-10-29 09:49 | PT.IIE ---
Current Diagnoses Non-ST elevation (NSTEMI) myocardial infarction (10/28/22) Surgical History ([facility] 10[facility]28[facility]22 [facility] 23:39 [facility] History of tonsillectomy S/P deep brain stimulator placement S/P TURP Medical History (Last Reviewed 10/28/22 @ 23:39 [facility] Chronic low back pain with sciatica CVA (cerebral vascular accident) Hairy cell leukemia Headache Hypertension Paresthesias in left hand Parkinsons disease Physical Therapy Inpatient Evaluation/Re-Eval M1 PT/OT-IP Prior Functional Status Start: 10/29/22 08:44 Freq: NEEDED Status: Active Protocol: Document 10/29/22 09:49 AW (Rec: 10/29/22 10:37 AW [id number]) Medical Review Prior Functional Status Medical History Reviewed Yes Communication Pt is vaguely hypophonic but is otherwise an effective verbal communicator. He has some baseline confusion. Mobility and Gait Pt reports falls are rare. He tends to carry a hurry cane or to cruise furniture at home. He is able to manage household distances and occasionally goes out for a short shopping trip. Activities of Daily Living and IADL's Pt's spouse stands by for showers. Eduar is otherwise independent with ADL's. He drives only occasionally and largely depends on his to drive. He manages his own medications. Pt's spouse reports he has had some swallowing issues. Prior Functional Level (Other details) PMH includes Parkinson's disease with history of DBS, dementia, CVA, prostate cancer . Social History Household Members spouse Living Arrangements House Number of Floors (Floors) Two Floors Number of Stairs To Enter/Railing? 1 NAZ through the garage with no rail. 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 Home Environment Standard Height Toilet,Tub/ Shower Home Equipment Straight Cane,Shower Seat without Backrest,Grab Bars In Shower Additional Social History Comment Eduar lives in [place] with his , Elvie. She provides some mobility assist. M2 PT-IP Current Condition Start: 10/29/22 08:44 Freq: NEEDED Status: Active Protocol: Document 10/29/22 09:49 AW (Rec: 10/29/22 10:37 AW [id number]) Physical Therapy Current Condition Current Condition Evaluation Date 10/29/22 Treatment Diagnosis NSTEMI, PD, difficulty in walking Onset Date 10/27/22 M3 PT-IP Subjective Start: 10/29/22 08:44 Freq: NEEDED Status: Active Protocol: Document 10/29/22 09:49 AW (Rec: 10/29/22 10:37 AW [id number]) Subjective Physical Therapy Visit Type Type Initial Evaluation Visit Start Time 09:25 Visit Stop Time 09:49 Total Visit Minutes 24 Physical Therapy Visit Comments Patient Comments Pt is willing to participate with PT Patient Goals Return home with spouse support Therapy Pain Assessment Pain When Pain Assessed At Rest Pain Present Pain Present Pain Reported Location R shoulder Scale Used not quantified; resolved with activity M4 PT-IP Mobility and Gait Start: 10/29/22 08:44 Freq: NEEDED Status: Active Protocol: Document 10/29/22 09:49 AW (Rec: 10/29/22 10:37 AW [id number]) PT-Bed Mobility Assessment Supine to Sit Supine to Sit Standby Assistance Scooting Scooting to Edge of Bed Standby Assistance PT-Transfer Assessment Sit to and From Stand Sit to and from Stand Standby Assistance,Use of Upper Extremities Equipment Transfer Assistive Device Gait Belt,Straight Cane Transfers Transfer Destination Chair Transfer Technique Stand Step Pivot Transfer Ability Level of Assist Contact Guard Assistance Comments Mobility Comments Eduar was lying in the bed as PT arrived. BP 135/79 HR 62. He has cervical dystonia and tremors in all extremities at rest. He states carbidopa levodopa helps with his tremors, movement, and balance . He sat up on the left side of the bed and donned his own shoes, tying them very precisely with good hand coordination. He stood CGA and carried cane to walk 130 feet to the stairs. After completing stair assessment, Eduar did wayfinding back to his room; he needed only the room number to find his way. He walked to the toilet and stood to void without over LOB. He walked to the wheelchair outside the room and was transported to imaging for nuc med stress test. Gait Assessment Gait Gait Assistance Required: Standby Assistance,Contact Guard Assist Distance (Feet) 260 Assistive Devices Assistive Device Gait Belt,Tripod Cane/Hurry Cane Orthotic/Prosthetic Devices or Brace: No Gait Deviations General Gait Pattern Ataxic,Decreased Stride Length ,Decreased Feet Clearance, Flexed Trunk,Lateral Trunk Lean,Narrow Based Gait Comments Gait Comments Eduar walks with narrow base of support/scissoring gait, decreased arm swing (left more affected than right), scuffing of bilateral feet. He tends to carry the cane, touching down only when needing balance support. He needs cues for obstacle navigation. Stair Climbing Assessment Evaluation Level of Assist On Stairs Contact Guard Assistance Devices Stair Climbing Assistive Devices Left Railing Technique/Endurance Stair Climbing Direction Ascend and Descend Stair Climbing Technique Step Over Step Number of Steps Climbed 3 Query Text: Stair Climbing Set # Repetitions (reps) 1 Comments Stair Climbing Comments Edura had LOB as he turned at the top step but recovered without additional assist. PT-Balance Assessment Sitting Balance and Reactions Static Sitting Balance Ability Fair Dynamic Sitting Balance Ability Fair Standing Balance and Reactions Static Standing Balance Ability Poor Dynamic Standing Balance Ability Poor Device Used hurry cane M5 PT-IP Objective Assessments Start: 10/29/22 08:44 Freq: NEEDED Status: Active Protocol: Document 10/29/22 09:49 AW (Rec: 10/29/22 10:37 [id number]) Orientation Orientation/Cognition Level of Alertness Alert Orientation Name,Day of Week,Place, Situation Safety Awareness Understands Safety Issues Memory Description Short Term Impaired Gross Range of Motion Lower Extremity ROM Assessment Within Functional Limits Strength Lower Extremity Strength Hip 4+/5 Knee 4+/5 Ankle 5/5 DF; 4/5 PF Coordination Assessment Gross Coordination Gross Coordination Impaired Assessment Finger to Nose Test Severe Impairment Pronation/Supination Test Severe Impairment Foot Tapping Test Severe Impairment Coordination Comments Dysmetric movement all extremities. Muscle Tone Muscle Tone WNL No Muscle Tone Location Bilateral Severity of Tone Severe Manifistation of Tone Resting Tremors,Ataxia M6 PT-IP Treatment Start: 10/29/22 08:44 Freq: NEEDED Status: Active Protocol: Document 10/29/22 09:49 AW (Rec: 10/29/22 10:37 [id number]) Physical Therapy Treatment Education Education Provided Safety M7 PT-IP Assessment and Plan Start: 10/29/22 08:44 Freq: NEEDED Status: Active Protocol: Document 10/29/22 09:49 AW (Rec: 10/29/22 10:37 [id number]) PT Summary Assessment and Plan Potential Rehabilitation Potential Fair Status of Condition at Evaluation Evolving Summary Impairments Strength,Balance,Coordination, Sensation,Tone,Cognition,Bed Mobility,Transfers,Gait Assessment Summary Eduar is a 77 yo man admitted with NSTEMI. History includes Parkinson's disease with DBS and dementia, CVA, prostate cancer. PLOF: Pt is known to this PT from the outpatient setting (seen for [facility] in 2020). He ambulates household and short community distances with hurry cane held for occasional balance support. His gait is ataxic with scissoring pattern, reduced arm swing, and poor obstacle navigation. Pt reports falls are rare and his confirms . CLOF: Pt's gait and transfers are at or near his baseline function. Pt will be safe to discharge home with spouse assist once medically cleared. He may benefit from home health PT. Goals Bed Mobility Goal Independent Transfer Goal Independent,Cane Gait Goal Standby Assistance,Cane Gait Distance 300 Other Goals -up/down one step without rail SBA Frequency of Treatment Frequency Of Treatment Once a Day Treatment Plan Physical Therapy Treatment Plan Bed Mobility Training,Transfer Training,Gait Training, Therapeutic Exercise,Balance Retraining,Discharge Planning, Hot or Cold Pack,Neuromuscular Re-ed,Coordination Retraining Precautions Other Precautions falls risk Recommendations To Nursing Amount of Assist Needed 1 Person Assist Discharge Recommendations PT Discharge Recommendations Home with Assistance,Home Health Transportation Needs at Discharge Private Vehicle
[2022-10-29 12:59] LABS: PTT Partial Thromboplastin Tim 27 SECONDS (26-36)
[2022-10-29 13:13] LABS: Troponin I 0.037 ng/mL (0.01-0.034)
--- NOTE | 2022-10-29 13:16 | OT.IPNOTE ---
Spoke to pt regarding OT needs and pt states able to do all his ADL needs at this time and that his is able to assist as needed. Pt states has no OT needs and therefore discharge OT eval orders.
--- NOTE | 2022-10-29 13:26 | CM.DANOTE ---
Patient is a 77 yo male who was admitted on 10/28/22 for NSTEMI after being in the ED for a couple days awaiting hospital transfer but no accepting hospital found. Pt has MCR and COMM for insurance and his PCP is Anson Benitez. EMR was reviewed. Per MD, pt with a hx of Prostate CA, Parkinson's, dementia and hx of CVA. Per PT, recommending home with spouse assist and HH. Pt just completed both portions of Nuclear Stress Test but awaiting results to be read. Per MD, with consultation with [employer] Programmer, if stress test negative then can d/c home today with outpt f/u. SW met bedside with pt and spouse and explained role and they confirm they live in [place] and spouse provides some assist with meal prep and SBA for showering and pt manages his own meds. Pt typically uses a cane or furniture surfs for short distances around the house and a walker for longer distances when he walks the dog at the park. They have a two story house but pt stays on the first level in the guest room and therefore no stairs needed to navigate. Pt denies any hx of HH or SNF and SW discussed HH services and frequency and provided the HH Choice list and pt and spouse feel HH would be beneficial at d/c and no HH preference. SW made referral to [facility] based on Vendor Calendar and faxed clinicals along with completed F2F and orders. Pt confirms he is not currently established with a [employer] Programmer and aware he will need outpt follow up with Cardiology and [facility] in [facility] or [facility]. Plan: SW to follow for stress test results towards determining if pt stable for d/c home with spouse assist today and new [facility] referral made and d/c summary to be faxed at discharge. [facility] [place] Discharge Planning/Care Management Advanced directive, confirm from FAMILY Start: 10/28/22 20:47 Freq: Q24H Status: Active Protocol: Document 10/28/22 20:47 NEGRA (Rec: 10/28/22 23:17 NEGRA [id number]) Advance Directive, confirm on record Time 23:17 Person contacted pt Copy received No CM Discharge Assessment Start: 10/29/22 13:24 Freq: Status: Active Protocol: Document 10/29/22 13:24 BF (Rec: 10/29/22 13:26 BF [id number]) Discharge Planning Assessment Assigned Cemetery Counselor [facility] [place] DPOA/Assigned Designee Name spouse Elvie Contact Information [phone] Advance Directives? No Advance Directives on File No History Provided By Patient,Medical Record Has Patient been admitted in last 30 No days? Prior Living Arrangements House Household Members spouse Type of transporation used prior to Relies on Others admit Comment Will drive short distances but mostly relies on spouse for transport Independent with ADL's Yes: somewhat, spouse does assist some Is patient alert and oriented? Yes Needs Assistance With Bathing,Meal Prep,Home Chores / Shopping Caregiver for Another No DME Already Rented / Owned FWW / Walker,Cane Patient/Family Preference Home with Home Health Barriers to Discharge No Discharge Plan Home with Home Health Community Services Physical Therapy,Home Health Nurse Transportation Arrangement Spouse Referrals Initiated Home Health Additional Comment PT, home with assist and HH If patient plan is home with home health Yes : Has signed face to face form been completed? Medicare Choice List Provided Yes SNF/HH Preference none, referral to [facility] based on vendor calendar Whiteboard Updated in Patient Room with Yes name and ext. # of Cemetery Counselor Review Status In Process Please Provide Date Initial DC 10/29/22 Assessment Was Performed Next Review Type Continued Stay Review
[2022-10-29 14:18] VITALS: BP 113/56; PULSE 62; RESP 16; TEMP 35.7; O2SAT 96
--- NOTE | 2022-10-29 19:12 | DI.NM.S_ITS ---
DATE OF SERVICE: 10/29/2022 PROCEDURE: Stress and rest myocardial perfusion imaging. Gating was unable to be performed. ORDERING PROVIDER: Mateus Agustin DO. INDICATIONS: The patient is a 77-year-old male with Parkinson disease and dementia, admitted with chest discomfort and significant hypertension with positive troponins. PHARMACOLOGIC STRESS: Per protocol, 0.4 mg of regadenoson was infused with a normal hemodynamic response. He had no chest discomfort or other anginal symptoms. His resting ECG shows sinus rhythm with mild nonspecific ST-segment changes, consistent with strain. With stress, these become slightly accentuated, but remain nonspecific. There were no arrhythmias. Per protocol, 26.9 millicuries of technetium-99m Myoview was injected and he was imaged 15 minutes later using a gated using a SPECT protocol. Earlier in the day while at rest, he had been injected with 11.4 millicuries of technetium-99m Myoview was imaged 20 minutes later, again using a SPECT protocol. FINDINGS: 1. Raw data: There appears to be fairly good myocardial tracer uptake. The lung/heart ratio is normal at 0.27 with a normal TID ratio of 0.90. The patient was unable to lay prone because of his Parkinson's and the images were unable to be gated because of his nerve stimulator. 2. Myocardial perfusion imaging: Post-stress supine images show a normal myocardial perfusion pattern without any significant perfusion defects. The resting images show a similar perfusion pattern without any areas of improvement. IMPRESSION: 1. Normal myocardial perfusion study. 2. No evidence of myocardial ischemia or previous myocardial infarction. 3. Gating was unable to be performed to assess left ventricular function or volumes. 4. He had no chest discomfort with pharmacologic vasodilator stress. His resting ECG abnormality became slightly accentuated, but remained nonspecific. 5. Compared to his previous myocardial perfusion study of 01/26/2021, he has an identical perfusion pattern without any significant change. RobEduarOlu - JAYME/kenyatta/janie doc#: [id number]/job#: [id number] dd: 10/29/2022 12:55:00 dt: 10/29/2022 19:02:00 DICTATING MD/COPIES TO: Julio Fairbanks MD COPIES MNE: NANYO;
[2022-10-30 06:36] LABS: PSA Ultrasensitive 0.395 ng/mL (0.000-4.000)
== END 2022-10-29 14:40 | disposition home or self-care (01) | DRG 281 ==
LOC: ED 10-28 18:02 → AC 10-28 18:06
PROVIDERS: Emergency Medicine; Nurse Practitioner Family; Admitting Provider Student in an Organized Health Care Education/Training Program; Emergency Provider Emergency Medicine; PCP Family Medicine; Referring Provider Emergency Medicine; Visit Provider Student in an Organized Health Care Education/Training Program
DX: I21.4 Non-ST elevation (NSTEMI) myocardial infarction (principal); C91.40 Hairy cell leukemia not having achieved remission; N13.8 Other obstructive and reflux uropathy; E44.1 Mild protein-calorie malnutrition; I10 Essential (primary) hypertension; N40.1 Benign prostatic hyperplasia with lower urinary tract symptoms; G20 Parkinson's disease; F02.80 Dementia in other diseases classified elsewhere, unspecified severity, without behavioral disturbance, psychotic disturbance, mood disturbance, and anxiety; Z87.891 Personal history of nicotine dependence; Z85.46 Personal history of malignant neoplasm of prostate; Z68.23 Body mass index [BMI] 23.0-23.9, adult; Z20.822 Contact with and (suspected) exposure to COVID-19
CPT/HCPCS: 36415; 70450; 71045; 78452; 80048; 80053; 80061; 81003; 81015; 82550; 83036; 83690; 83735; 83880; 84153; 84443; 84484; 85025; 85730; 87086; 87502; 87634; 87635; 93005; 93017; 93306; 96365; 96366; 96376; 97162; 99285; 99291; C9803; A9502; C9113; J1644; J2785

== ENCOUNTER 2022-12-04 10:17 | Emergency (ER) | payer MEDICARE, OTHER, SELFPAY ==
[2022-10-28 19:59] VITALS: BMI 22.9
[2022-12-04] VITALS (10 sets, daily range): BP systolic 143–180; BP diastolic 65–81; PULSE 50–65; RESP 15–19; TEMP 36; O2SAT 95–98; BMI 23.6
--- NOTE | 2022-12-04 10:28 | DI.RAD.S_ITS ---
PROCEDURE: XR CHEST 1V INDICATIONS: chest pain TECHNIQUE: One view of the chest was acquired. COMPARISON: [facility], CR, XR CHEST 1V, 10/26/2022, 20:38. FINDINGS: Surgical changes and devices: Left chest wall possible stimulator position is unchanged. Lungs and pleura: Lungs are clear. No pleural effusions or pneumothorax. Mediastinum: Mediastinal contours appear normal. Heart size is normal. Bones and chest wall: No suspicious bony lesions. Overlying soft tissues appear unremarkable. IMPRESSION: No acute cardiopulmonary pathology. Dictated by: Brenton Turner M.D. on 12/04/2022 at 12:02 Approved by: Brenton Turner M.D. on 12/04/2022 at 12:02
[2022-12-04 11:02] LABS: Add Manual Diff / Slide Review NO; Basophils Absolute Auto 0 /uL (0-100); Basophils Percent Auto 0.8 % (0-2); Eosinophils Absolute Auto 200 /uL (0-450); Eosinophils Percent Auto 4.2 % (2-4); Hematocrit 39.9 % (41-53); Hemoglobin 13.6 g/dL (13.5-17.5); Lymphocytes Absolute Auto 700 /uL (1100-4500); Lymphocytes Percent Auto 16.8 % (25-40); Mean Corpuscular Volume 88.2 fL (80-100); Monocytes Absolute Auto 300 /uL (0-900); Monocytes Percent Auto 7.8 % (3-14); Neutrophils Absolute Auto 2800 /uL (1500-7000); Neutrophils Percent Auto 70.4 % (50-75); Platelet Count 158 X10^3/uL (150-400); Red Blood Cell Count 4.53 X10^6/uL (4.5-5.9); Red Cell Distribution Width 13.2 % (11.6-14.8); White Blood Cell Count 3.9 X10^3/uL (4.5-11.0)
[2022-12-04 11:08] LABS: INR 1.1 (0.9-1.3); Prothrombin Time 12.8 SECONDS (10.1-12.7)
[2022-12-04 11:11] LABS: PTT Partial Thromboplastin Tim 28 SECONDS (26-36)
[2022-12-04 11:12] LABS: Alanine Aminotransferase 9 IU/L (<50); Albumin 3.7 g/dL (3.5-5.0); Albumin Globulin Ratio 1.4 (1.0-2.8); Alkaline Phosphatase 58 U/L (38-126); Aspartate Aminotransferase 16 IU/L (17-59); BUN Creatinine Ratio 21.6 (6-22); Bilirubin Total 0.8 mg/dL (0.2-1.3); Blood Urea Nitrogen 19 mg/dL (9-20); Calcium 8.6 mg/dL (8.4-10.2); Carbon Dioxide 25 mmol/L (22-32); Chloride 103 mmol/L (98-107); Creatine Kinase 35 U/L (55-170); Estimated Glomerular Filt Rate > 60 mL/min (>60); Globulin 2.7 g/dL (1.7-4.1); Glucose 122 mg/dL (80-110); HEMOLYSIS < 15 (0-50); Lipase 58 U/L (23-300); Magnesium 2.1 mg/dL (1.6-2.3); Potassium 3.8 mmol/L (3.4-5.1); Sodium 137 mmol/L (137-145); Total Protein 6.4 g/dL (6.3-8.2)
[2022-12-04 11:22] LABS: Troponin I < 0.012 ng/mL (0.01-0.034)
--- NOTE | 2022-12-04 11:49 | ED_ITS ---
HPI - Chest Pain General Chief Complaint: Chest Pain Stated Complaint: chest pain Time Seen by Provider: 12/04/22 11:42 Source: patient Mode of arrival: Wheelchair Limitations: no limitations History of Present Illness HPI narrative: 77-year-old male presenting with chest pain. Patient reports waking with sharp chest pain, non exertional, did not clearly radiate, patient took his nitroglycerin and had improvement in symptoms. Patient has a history of recent evaluation for NSTEMI that was treated with heparin and managed medically in October of 2022. Patient denies associated shortness of breath or abdominal pain, no nausea or vomiting. Patient denies active symptoms on presentation to the emergency department. Related Data Home Medications Medication Instructions Recorded Confirmed carbidopa ER 50 mg-levodopa 200 mg 1 tab PO QID 04/08/18 11/07/22 tablet,extended release acetaminophen 325 mg tablet 325 mg PO Q6H PRN Pain (Scale 06/26/18 11/07/22 (Tylenol) Score 1-3) carbidopa 25 mg-levodopa 100 mg 25 - 100 tab PO QID PRN 07/14/20 11/07/22 disintegrating tablet parkinson's symptoms amlodipine 5 mg tablet 2.5 mg PO DAILY 10/27/22 11/07/22 Previous Rx's Medication Instructions Recorded Disabled Parking #1 ea 03/05/19 losartan 50 mg tablet 50 mg PO BID #180 tabs 02/02/21 metoprolol succinate 50 mg 50 mg PO BID #90 tabs 02/16/22 tablet,extended release 24 hr Allergies Allergy/AdvReac Type Severity Reaction Status Date / Time adhesive tape Allergy Intermediate Blister Verified 12/04/22 10:24 cefuroxime Allergy Mild rash/ Verified 12/04/22 10:24 itching codeine [CODEINE] Allergy Mild NAUSEA Verified 12/04/22 10:24 clindamycin AdvReac N/V Verified 12/04/22 10:24 Review of Systems Review of Systems Narrative: Constitutional, Eyes, ENT, Pulmonary, Cardiovascular, Gastrointestinal, Renal, Endocrine, Genitourinary, Musculoskeletal, Neurologic, Skin, and Psychiatric systems were reviewed and negative unless indicated in the HPI above. Patient History Medical History Chronic low back pain with sciatica CVA (cerebral vascular accident) Hairy cell leukemia Headache Hypertension Paresthesias in left hand Parkinsons disease Surgical History History of tonsillectomy S/P deep brain stimulator placement S/P TURP Social History household members: spouse Smoking Status: Former smoker alcohol intake: current substance use type: does not use Smoking Status: Former smoker alcohol intake frequency: holidays/special occasions only Substance Use Type: does not use Exam Narrative Exam Narrative: Vitals reviewed. Nursing note reviewed Constitutional: interactive HENT: Moist mucous membranes EYES: No scleral icterus NECK: no masses CV: Well perfused peripherally, no cyanosis present PULM: Unlabored respirations, symmetric chest rise ABD: Non-distended MS: No gross deformities, no asymmetric edema noted SKIN: Warm and dry. PSYCH: Appropriate affect NEURO: Follows simple commands, moves extremities, interactive with exam Initial Vital Signs Initial Vital Signs: Vital Signs Temperature 96.8 F L 12/04/22 10:24 Pulse Rate 59 L 12/04/22 10:24 Respiratory Rate 15 12/04/22 10:24 Blood Pressure 157/69 H 12/04/22 10:24 Pulse Oximetry 97 12/04/22 10:24 Oxygen Delivery Method 12/04/22 10:24 Course Orders Ordered: ED Orders 12/04/22 10:28 XR chest 1V Stat EKG-12 Lead Stat 12/04/22 10:33 Comprehensive Metabolic Panel Stat Lipase Stat Magnesium Stat Partial Thromboplastin Time Stat Prothrombin Time INR Stat Troponin & CK Cardiac Panel Stat 12/04/22 10:35 Complete Blood Count AUTO DIFF Stat Vital Signs Vital signs: Vital Signs - 8 hr 12/04/22 10:24 Temperature 96.8 F L Pulse Rate 59 L Respiratory Rate 15 Blood Pressure 157/69 H Pulse Oximetry 97 Oxygen Delivery Method Room Air MDM - Chest Pain Lab Data Result diagrams: 12/04/22 10:35 12/04/22 10:33 Labs: Lab Results 12/04/22 12/04/22 12/04/22 Range/Units 10:33 10:33 10:35 WBC 3.9 L (4.5-11.0) X10^3/uL RBC 4.53 (4.5-5.9) X10^6/uL Hgb 13.6 (13.5-17.5) g/dL Hct 39.9 L (41-53) % MCV 88.2 (80-100) fL MCH 30.0 (26-34) PG MCHC 34.0 (30-36) % RDW 13.2 (11.6-14.8) % Plt Count 158 (150-400) X10^3/uL Neut % (Auto) 70.4 (50-75) % Lymph % (Auto) 16.8 L (25-40) % [place] % (Auto) 7.8 (3-14) % Eos % (Auto) 4.2 H (2-4) % Baso % (Auto) 0.8 (0-2) % Neut # (Auto) 2800 (9681-7691) /uL Lymph # (Auto) 700 L (8567-3361) /uL [place] # (Auto) 300 (0-900) /uL Eos # (Auto) 200 (0-450) /uL Baso # (Auto) 0 (0-100) /uL PT 12.8 H (10.1-12.7) SECONDS INR 1.1 (0.9-1.3) APTT 28 (26-36) SECONDS Sodium 137 (137-145) mmol/L Potassium 3.8 (3.4-5.1) mmol/L Chloride 103 (98-107) mmol/L Carbon Dioxide 25 (22-32) mmol/L BUN 19 (9-20) mg/dL Creatinine 0.88 (0.66-1.25) mg/dL Estimated GFR > 60 (>60) mL/min BUN/Creatinine Ratio 21.6 (6-22) Glucose 122 H (80-110) mg/dL Calcium 8.6 (8.4-10.2) mg/dL Magnesium 2.1 (1.6-2.3) mg/dL Total Bilirubin 0.8 (0.2-1.3) mg/dL AST 16 L (17-59) IU/L ALT 9 (<50) IU/L Alkaline Phosphatase 58 (38-126) U/L Total Creatine Kinase 35 L (55-170) U/L CK-MB (CK-2) TNP CK-MB (CK-2) Rel Index TNP Troponin I < 0.012 (0.01-0.034) ng/mL Total Protein 6.4 (6.3-8.2) g/dL Albumin 3.7 (3.5-5.0) g/dL Globulin 2.7 (1.7-4.1) g/dL Albumin/Globulin Ratio 1.4 (1.0-2.8) Lipase 58 (23-300) U/L 12/04/22 Range/Units 12:43 WBC (4.5-11.0) X10^3/uL RBC (4.5-5.9) X10^6/uL Hgb (13.5-17.5) g/dL Hct (41-53) % MCV (80-100) fL MCH (26-34) PG MCHC (30-36) % RDW (11.6-14.8) % Plt Count (150-400) X10^3/uL Neut % (Auto) (50-75) % Lymph % (Auto) (25-40) % [place] % (Auto) (3-14) % Eos % (Auto) (2-4) % Baso % (Auto) (0-2) % Neut # (Auto) (3102-9640) /uL Lymph # (Auto) (3523-5730) /uL [place] # (Auto) (0-900) /uL Eos # (Auto) (0-450) /uL Baso # (Auto) (0-100) /uL PT (10.1-12.7) SECONDS INR (0.9-1.3) APTT (26-36) SECONDS Sodium (137-145) mmol/L Potassium (3.4-5.1) mmol/L Chloride (98-107) mmol/L Carbon Dioxide (22-32) mmol/L BUN (9-20) mg/dL Creatinine (0.66-1.25) mg/dL Estimated GFR (>60) mL/min BUN/Creatinine Ratio (6-22) Glucose (80-110) mg/dL Calcium (8.4-10.2) mg/dL Magnesium (1.6-2.3) mg/dL Total Bilirubin (0.2-1.3) mg/dL AST (17-59) IU/L ALT (<50) IU/L Alkaline Phosphatase (38-126) U/L Total Creatine Kinase 33 L (55-170) U/L CK-MB (CK-2) TNP CK-MB (CK-2) Rel Index TNP Troponin I < 0.012 (0.01-0.034) ng/mL Total Protein (6.3-8.2) g/dL Albumin (3.5-5.0) g/dL Globulin (1.7-4.1) g/dL Albumin/Globulin Ratio (1.0-2.8) Lipase (23-300) U/L MDM Narrative Medical decision making narrative: 77-year-old male presenting with chest pain that resolved prior to arrival. On presentation, vital signs notable for hypertension, borderline bradycardia. Physical exam notable for well-appearing 77-year-old male, reassuring cardiopulmonary exam, benign abdomen. Initial concern for ACS, primary cardiac arrhythmia, medication effect, pulmonary embolism, infectious etiology including viral syndrome, focal bacterial infection, MSK strain, esophageal pathology, vascular pathology. EKG obtained on presentation without clear evidence of acute ischemia, unfortun ately, given patient's deep brain stimulator and battery, unable to effectively print out EKG strip, however, bedside [address] elevation or depression, no significant T-wave inversions noted. Initial troponin not detectable, repeat obtained. Screening labs notable for reassuring cardiac enzyme assay initially and on 2 hours repeat, CBC without leukocytosis or left shift, CMP with normal range creatinine. Discussed findings with patient and family member at bedside. Given reassuring evaluation without evidence of clear acute ischemia on EKG, serial troponin testing is reassuring, patient with recent stress testing that was reassuring, discussed plan for discharge and close outpatient follow up with Cardiology. Discussed return precautions including any recurrent symptoms, new symptoms develop, or questions/concerns arose. Patient and family member at bedside were comfortable with plan for discharge with close outpatient follow up with Cardiology. Discharge Plan Departure Patient Disposition: Home Clinical Impression: Chest pain Instructions: DI for Chest Pain Activity Restrictions/Additional Instructions: Please follow up in outpatient setting with cardiology and your primary care physician as discussed. If you have difficulty getting into Cardiology follow- up, you have recurrent symptoms, or new symptoms develop, please return to the emergency department for repeat evaluation. Prescriptions: No Action carbidopa-levodopa 50-200 mg tablet extended release 1 tab PO QID Label Comments: patient states takes 2 to 5 daily. (DME) Disabled Parking 0 .ROUTE .MEDSUPPLY Qty: 1 0RF Rx Instructions: As directed metoprolol succinate 50 mg tablet extended release 24 hr 50 mg PO BID Qty: 90 1RF losartan 50 mg tablet 50 mg PO BID Qty: 180 3RF carbidopa-levodopa 25-100 mg tablet,disintegrating 25 - 100 tab PO QID PRN (Reason: parkinson's symptoms) acetaminophen [Tylenol] 325 mg Tablet 325 mg PO Q6H PRN (Reason: Pain (Scale Score 1-3)) amlodipine 5 mg tablet 2.5 mg PO DAILY Rx Instructions: increase to 7.5mg daily if blood pressure above 140/90 daily. Referrals: Anson Benitez MD [Primary Care Provider] - Stand Alone Forms: Patient Portal/API
[2022-12-04 13:04] LABS: Creatine Kinase 33 U/L (55-170)
[2022-12-04 13:18] LABS: Troponin I < 0.012 ng/mL (0.01-0.034)
== END 2022-12-04 14:37 | disposition home or self-care (01) ==
PROVIDERS: Emergency Provider Emergency Medicine; PCP Family Medicine
DX: R07.9 Chest pain, unspecified (principal); I10 Essential (primary) hypertension; R00.1 Bradycardia, unspecified; Z87.891 Personal history of nicotine dependence
CPT/HCPCS: 36415; 71045; 80053; 82550; 83690; 83735; 84484; 85025; 85610; 85730; 99283

== ENCOUNTER 2022-12-21 20:21 | Emergency (ER) | payer MEDICARE, OTHER, SELFPAY ==
[2022-10-28 19:59] VITALS: BMI 22.9
[2022-12-21 20:40] VITALS: BP 152/75; PULSE 62; RESP 16; TEMP 36.3; O2SAT 95; BMI 22.9
--- NOTE | 2022-12-21 20:44 | DI.RAD.S_ITS ---
PROCEDURE: XR CHEST 1V INDICATIONS: chest pain TECHNIQUE: One view of the chest was acquired. COMPARISON: [facility], CR, XR CHEST 1V, 12/04/2022, 11:42. FINDINGS: Surgical changes and devices: Left chest wall neurostimulator device redemonstrated. Lungs and pleura: Visualized lungs are clear. No pleural effusions or pneumothorax. A skin fold is noted projecting over the right hemithorax. Mediastinum: Mediastinal contours appear normal. Heart size is normal. Bones and chest wall: No suspicious bony lesions. Overlying soft tissues appear unremarkable. IMPRESSION: 1. No definite acute cardiopulmonary disease. Dictated by: Kota Kuhn M.D. on 12/21/2022 at 21:35 Approved by: Kota Kuhn M.D. on 12/21/2022 at 21:41
[2022-12-21 21:07] LABS: Add Manual Diff / Slide Review NO; Basophils Absolute Auto 100 /uL (0-100); Basophils Percent Auto 1.1 % (0-2); Eosinophils Absolute Auto 200 /uL (0-450); Eosinophils Percent Auto 5.1 % (2-4); Hematocrit 37.7 % (41-53); Hemoglobin 13.1 g/dL (13.5-17.5); Lymphocytes Absolute Auto 800 /uL (1100-4500); Lymphocytes Percent Auto 18.4 % (25-40); Mean Corpuscular HGB Conc 34.8 % (30-36); Mean Corpuscular Hemoglobin 30.2 PG (26-34); Mean Corpuscular Volume 86.8 fL (80-100); Monocytes Absolute Auto 500 /uL (0-900); Monocytes Percent Auto 10.3 % (3-14); Neutrophils Absolute Auto 2900 /uL (1500-7000); Neutrophils Percent Auto 65.1 % (50-75); Platelet Count 160 X10^3/uL (150-400); Red Blood Cell Count 4.34 X10^6/uL (4.5-5.9); Red Cell Distribution Width 13.4 % (11.6-14.8); White Blood Cell Count 4.5 X10^3/uL (4.5-11.0)
[2022-12-21 21:09] LABS: INR 1.1 (0.9-1.3); Prothrombin Time 12.1 SECONDS (10.1-12.7)
[2022-12-21 21:12] LABS: PTT Partial Thromboplastin Tim 26 SECONDS (26-36)
[2022-12-21 21:13] LABS: Alanine Aminotransferase 7 IU/L (<50); Albumin 3.8 g/dL (3.5-5.0); Albumin Globulin Ratio 1.4 (1.0-2.8); Alkaline Phosphatase 55 U/L (38-126); Aspartate Aminotransferase 16 IU/L (17-59); BUN Creatinine Ratio 31.3 (6-22); Bilirubin Total 0.5 mg/dL (0.2-1.3); Blood Urea Nitrogen 26 mg/dL (9-20); Calcium 8.8 mg/dL (8.4-10.2); Carbon Dioxide 29 mmol/L (22-32); Chloride 104 mmol/L (98-107); Creatine Kinase 42 U/L (55-170); Estimated Glomerular Filt Rate > 60 mL/min (>60); Globulin 2.7 g/dL (1.7-4.1); Glucose 116 mg/dL (80-110); HEMOLYSIS < 15 (0-50); Lipase 88 U/L (23-300); Magnesium 2.2 mg/dL (1.6-2.3); Potassium 3.9 mmol/L (3.4-5.1); Sodium 138 mmol/L (137-145); Total Protein 6.5 g/dL (6.3-8.2)
[2022-12-21 21:24] LABS: Troponin I < 0.012 ng/mL (0.01-0.034)
--- NOTE | 2022-12-21 22:03 | ED.CHESTPAIN ---
HPI - Chest Pain General Chief Complaint: Chest Pain Stated Complaint: worsening Chest pain Time Seen by Provider: 12/21/22 21:46 Source: patient and family () Mode of arrival: Ambulatory Limitations: no limitations History of Present Illness HPI narrative: Patient is a 77-year-old male. Has a history of Parkinson's disease. Has a neurostimulator in place. Was seen here in the emergency department approximately 6 weeks ago. Was admitted to the hospital with a diagnosis of an NSTEMI. He had a stress test. Has an appointment with Cardiology the beginning of next week. Was at his normal state of health. Started to have chest discomfort. This was different than the discomfort that brought him into the emergency department last month. He took an aspirin. His symptoms did not improve. He then took nitro. His symptoms did not improve after the nitro. His brought him in. His symptoms have since improved on their own. He is currently asymptomatic. He would no shortness of breath with the symptoms. No nausea vomiting. Related Data Home Medications Medication Instructions Recorded Confirmed carbidopa ER 50 mg-levodopa 200 mg 1 tab PO QID 04/08/18 12/18/22 tablet,extended release acetaminophen 325 mg tablet 325 mg PO Q6H PRN Pain (Scale 06/26/18 12/18/22 (Tylenol) Score 1-3) carbidopa 25 mg-levodopa 100 mg 25 - 100 tab PO QID PRN 07/14/20 12/18/22 disintegrating tablet parkinson's symptoms amlodipine 5 mg tablet 2.5 mg PO DAILY 10/27/22 12/18/22 Previous Rx's Medication Instructions Recorded Disabled Parking #1 ea 03/05/19 losartan 50 mg tablet 50 mg PO BID #180 tabs 02/02/21 metoprolol succinate 50 mg 50 mg PO BID #90 tabs 02/16/22 tablet,extended release 24 hr Allergies Allergy/AdvReac Type Severity Reaction Status Date / Time adhesive tape Allergy Intermediate Blister Verified 12/21/22 20:40 cefuroxime Allergy Mild rash/ Verified 12/21/22 20:40 itching codeine [CODEINE] Allergy Mild NAUSEA Verified 12/21/22 20:40 clindamycin AdvReac N/V Verified 12/21/22 20:40 Review of Systems Constitutional Constitutional: Reports system reviewed and no additional complaints, except as documented Cardiovascular Cardiovascular: Reports system reviewed and no additional complaints, except as documented Respiratory Respiratory: Reports system reviewed and no additional complaints, except as documented Gastrointestinal Gastrointestinal: Reports system reviewed and no additional complaints, except as documented Genitourinary Genitourinary: Reports system reviewed and no additional complaints, except as documented Integumentary/Breasts Skin/Breast: Reports system reviewed and no additional complaints, except as documented Hematologic/Lymphatic On Anticoagulants: No Patient History Medical History Acute non-ST elevation myocardial infarction (NSTEMI) Chronic low back pain with sciatica CVA (cerebral vascular accident) Hairy cell leukemia Headache Hypertension Paresthesias in left hand Parkinsons disease Surgical History History of tonsillectomy S/P deep brain stimulator placement S/P TURP Social History household members: spouse Smoking Status: Former smoker alcohol intake: current substance use type: does not use Smoking Status: Former smoker alcohol intake frequency: holidays/special occasions only Substance Use Type: does not use Exam Initial Vital Signs Initial Vital Signs: Vital Signs Temperature 97.4 F L 12/21/22 20:40 Pulse Rate 62 12/21/22 20:40 Respiratory Rate 16 12/21/22 20:40 Blood Pressure 152/75 H 12/21/22 20:40 Pulse Oximetry 95 12/21/22 20:40 Oxygen Delivery Method 12/21/22 20:40 HENMT Head: normal to inspection and normocephalic Resp Effort & Inspection: normal respiratory effort Auscultation: clear to auscultation bilaterally Cardio Rate: regular rate Rhythm: regular rhythm GI Inspection: normal to inspection Neuro General: patient alert and patient awake Extrem General: No edema Course Orders Ordered: ED Orders 12/21/22 20:44 XR chest 1V Stat EKG-12 Lead Stat 12/21/22 20:55 Complete Blood Count AUTO DIFF Stat Comprehensive Metabolic Panel Stat Lipase Stat Magnesium Stat Partial Thromboplastin Time Stat Prothrombin Time INR Stat Troponin & CK Cardiac Panel Stat 12/21/22 22:55 Troponin & CK Cardiac Panel Stat Vital Signs Vital signs: Vital Signs - 8 hr 12/21/22 20:40 12/22/22 00:09 Temperature 97.4 F L Pulse Rate 62 65 Respiratory Rate 16 18 Blood Pressure 152/75 H 172/76 H Pulse Oximetry 95 97 Oxygen Delivery Method Room Air Room Air MDM - Chest Pain Differential Diagnosis Differential diagnosis: Likely pneumothorax, stable angina, unstable angina pectoris, atypical chest pain, st elevation myocardial infarction and chest pain Medical Records Data Attestation: I reviewed the patient's medical records. Lab Data Attestation: I reviewed the patient's lab results. 12/21/22 20:55 12/21/22 20:55 Labs: Lab Results 12/21/22 12/21/22 12/21/22 Range/Units 20:55 20:55 20:55 WBC 4.5 (4.5-11.0) X10^3/uL RBC 4.34 L (4.5-5.9) X10^6/uL Hgb 13.1 L (13.5-17.5) g/dL Hct 37.7 L (41-53) % MCV 86.8 (80-100) fL MCH 30.2 (26-34) PG MCHC 34.8 (30-36) % RDW 13.4 (11.6-14.8) % Plt Count 160 (150-400) X10^3/uL Neut % (Auto) 65.1 (50-75) % Lymph % (Auto) 18.4 L (25-40) % Kerr % (Auto) 10.3 (3-14) % Eos % (Auto) 5.1 H (2-4) % Baso % (Auto) 1.1 (0-2) % Neut # (Auto) 2900 (8640-8370) /uL Lymph # (Auto) 800 L (9087-7597) /uL Kerr # (Auto) 500 (0-900) /uL Eos # (Auto) 200 (0-450) /uL Baso # (Auto) 100 (0-100) /uL PT 12.1 (10.1-12.7) SECONDS INR 1.1 (0.9-1.3) APTT 26 (26-36) SECONDS Sodium 138 (137-145) mmol/L Potassium 3.9 (3.4-5.1) mmol/L Chloride 104 (98-107) mmol/L Carbon Dioxide 29 (22-32) mmol/L BUN 26 H (9-20) mg/dL Creatinine 0.83 (0.66-1.25) mg/dL Estimated GFR > 60 (>60) mL/min BUN/Creatinine Ratio 31.3 H (6-22) Glucose 116 H (80-110) mg/dL Calcium 8.8 (8.4-10.2) mg/dL Magnesium 2.2 (1.6-2.3) mg/dL Total Bilirubin 0.5 (0.2-1.3) mg/dL AST 16 L (17-59) IU/L ALT 7 (<50) IU/L Alkaline Phosphatase 55 (38-126) U/L Total Creatine Kinase 42 L (55-170) U/L CK-MB (CK-2) TNP CK-MB (CK-2) Rel Index TNP Troponin I < 0.012 (0.01-0.034) ng/mL Total Protein 6.5 (6.3-8.2) g/dL Albumin 3.8 (3.5-5.0) g/dL Globulin 2.7 (1.7-4.1) g/dL Albumin/Globulin Ratio 1.4 (1.0-2.8) Lipase 88 (23-300) U/L 12/21/22 Range/Units 22:55 WBC (4.5-11.0) X10^3/uL RBC (4.5-5.9) X10^6/uL Hgb (13.5-17.5) g/dL Hct (41-53) % MCV (80-100) fL MCH (26-34) PG MCHC (30-36) % RDW (11.6-14.8) % Plt Count (150-400) X10^3/uL Neut % (Auto) (50-75) % Lymph % (Auto) (25-40) % Kerr % (Auto) (3-14) % Eos % (Auto) (2-4) % Baso % (Auto) (0-2) % Neut # (Auto) (1958-0547) /uL Lymph # (Auto) (5034-7050) /uL Kerr # (Auto) (0-900) /uL Eos # (Auto) (0-450) /uL Baso # (Auto) (0-100) /uL PT (10.1-12.7) SECONDS INR (0.9-1.3) APTT (26-36) SECONDS Sodium (137-145) mmol/L Potassium (3.4-5.1) mmol/L Chloride (98-107) mmol/L Carbon Dioxide (22-32) mmol/L BUN (9-20) mg/dL Creatinine (0.66-1.25) mg/dL Estimated GFR (>60) mL/min BUN/Creatinine Ratio (6-22) Glucose (80-110) mg/dL Calcium (8.4-10.2) mg/dL Magnesium (1.6-2.3) mg/dL Total Bilirubin (0.2-1.3) mg/dL AST (17-59) IU/L ALT (<50) IU/L Alkaline Phosphatase (38-126) U/L Total Creatine Kinase 38 L (55-170) U/L CK-MB (CK-2) TNP CK-MB (CK-2) Rel Index TNP Troponin I < 0.012 (0.01-0.034) ng/mL Total Protein (6.3-8.2) g/dL Albumin (3.5-5.0) g/dL Globulin (1.7-4.1) g/dL Albumin/Globulin Ratio (1.0-2.8) Lipase (23-300) U/L Imaging Data Chest x-ray: Radiologist's Impression: [address] [address] XRay Report Signed Patient: Olu Rivas V MR#: [id number] : 1945 Acct:[id number] Age/Sex: 77 / M Date of Service: 12/21/22 Loc: ED Accession Number: [id number] ?? Procedure: XR chest 1V Ordering Provider: Grayson Law D.O. PROCEDURE:? XR CHEST 1V ? INDICATIONS:? chest pain ? TECHNIQUE:? One view of the chest was acquired.? ? COMPARISON:? [facility], , XR CHEST 1V, 12/04/2022, 11:42. ? FINDINGS:? ? Surgical changes and devices:? Left chest wall neurostimulator device redemonstrated. ? Lungs and pleura:? Visualized lungs are clear.? No pleural effusions or pneumothorax.? A skin fold is noted projecting over the right hemithorax.? ? Mediastinum:? Mediastinal contours appear normal.? Heart size is normal.? ? Bones and chest wall:? No suspicious bony lesions.? Overlying soft tissues appear unremarkable.? ? IMPRESSION:? ? 1. No definite acute cardiopulmonary disease.? ? ? Dictated by: Kota Kuhn M.D. on 12/21/2022 at 21:35 ? ? Approved by: Kota Kuhn M.D. on 12/21/2022 at 21:41?? [facility] Narrative Medical decision making narrative: Patient is asymptomatic. He is follow-up with Cardiology next week. His troponins are negative x2. We are unable to obtain an EKG secondary to his nerve stimulator. Apparently this is a similar issue that they had the last time that he was here. On the monitor there did not appear to be any ST changes. His chest x-ray is negative. Had a discussion with him regarding his symptoms. I do feel that following up with Cardiology is important. Given his negative troponins today is no indication for admission to the hospital. He has nitro at home. Had a long discussion with him and his regarding the symptoms. We discussed that he should return to the emergency department for. Both he and his expressed understanding and agreement. Discharge Plan Departure Patient Disposition: Home Clinical Impression: Chest pain Instructions: DI for Chest Pain Activity Restrictions/Additional Instructions: Continue to take all of your medications as directed. Keep all of your scheduled medical appointments. Contact your primary provider for a follow-up. Return to the emergency department for any new or worsening symptoms. Prescriptions: No Action carbidopa-levodopa 50-200 mg tablet extended release 1 tab PO QID Label Comments: patient states takes 2 to 5 daily. (DME) Disabled Parking 0 .ROUTE .MEDSUPPLY Qty: 1 0RF Rx Instructions: As directed metoprolol succinate 50 mg tablet extended release 24 hr 50 mg PO BID Qty: 90 1RF losartan 50 mg tablet 50 mg PO BID Qty: 180 3RF carbidopa-levodopa 25-100 mg tablet,disintegrating 25 - 100 tab PO QID PRN (Reason: parkinson's symptoms) acetaminophen [Tylenol] 325 mg Tablet 325 mg PO Q6H PRN (Reason: Pain (Scale Score 1-3)) amlodipine 5 mg tablet 2.5 mg PO DAILY Rx Instructions: increase to 7.5mg daily if blood pressure above 140/90 daily. Referrals: Anson Benitez MD [Primary Care Provider] - Stand Alone Forms: Patient Portal/API
[2022-12-21 23:16] LABS: Creatine Kinase 38 U/L (55-170)
[2022-12-21 23:29] LABS: Troponin I < 0.012 ng/mL (0.01-0.034)
[2022-12-22 00:09] VITALS: BP 172/76; PULSE 65; RESP 18; O2SAT 97
== END 2022-12-22 00:11 | disposition home or self-care (01) ==
PROVIDERS: Emergency Provider Emergency Medicine; PCP Family Medicine
DX: R07.9 Chest pain, unspecified (principal); Z79.899 Other long term (current) drug therapy
CPT/HCPCS: 36415; 71045; 80053; 82550; 83690; 83735; 84484; 85025; 85610; 85730; 93005; 99283; 99284

== ENCOUNTER → 2022-12-28 15:04 | Outpatient (CLI) | payer MEDICARE, OTHER, SELFPAY ==
[2022-10-28 19:59] VITALS: BMI 22.9
--- NOTE | 2022-12-28 15:05 | DI.US.S_ITS ---
PROCEDURE: US CAROTID DOPPLER BI INDICATIONS: carotid throbbing TECHNIQUE: Color and pulse Doppler interrogation was performed of both carotid systems, with image documentation and velocity measurements. COMPARISON: [facility], US, US CAROTID DOPPLER BI, 06/06/2020, 7:29. FINDINGS: Stenosis calculations are based on SRU (Society of Radiologists in Ultrasound) criteria. Right side: Brachial blood pressure: 156/79 mm Hg. Common carotid artery peak systolic velocity: 109 cm/sec. Internal carotid artery peak systolic velocity: 65 cm/sec. Internal carotid artery end diastolic velocity: 21 cm/sec. External carotid artery peak systolic velocity: 88 cm/sec. ICA/CCA peak systolic ratio: 0.6 . Alvarez scale imaging description: Minimal plaque at the bifurcation Percent internal carotid artery stenosis: Less than 50% . Vertebral artery: Flow direction is antegrade. Left side: Brachial blood pressure: 136/72 mm Hg. Common carotid artery peak systolic velocity: 104 cm/sec. Internal carotid artery peak systolic velocity: 72 cm/sec. Internal carotid artery end diastolic velocity: 21 cm/sec. External carotid artery peak systolic velocity: 70 cm/sec. ICA/CCA peak systolic ratio: 0.7 . Alvarez scale imaging description: Minimal plaque at the bifurcation Percent internal carotid artery stenosis: Less than 50% . Vertebral artery: Flow direction is antegrade. IMPRESSION: Less than 50% stenosis of the internal carotid arteries bilaterally. Dictated by: Kisha Rodriguez M.D. on 12/28/2022 at 15:57 Approved by: Kisha Rodriguez M.D. on 12/28/2022 at 15:58
== END ==
PROVIDERS: PCP Family Medicine; Referring Provider Family Medicine; Visit Provider Family Medicine
DX: G20 Parkinson's disease (principal); Z86.73 Personal history of transient ischemic attack (TIA), and cerebral infarction without residual deficits; I65.23 Occlusion and stenosis of bilateral carotid arteries
CPT/HCPCS: 93880

== ENCOUNTER → 2023-04-05 11:26 | Outpatient (CLI) | payer MEDICARE, OTHER, SELFPAY ==
[2022-10-28 19:59] VITALS: BMI 22.9
--- NOTE | 2023-04-05 11:27 | DI.CT.S_ITS ---
PROCEDURE: CT CHEST ABD PEL W CON INDICATIONS: night sweats, wt loss, HCL, Prostate cancer TECHNIQUE: After the administration of oral and intravenous contrast, axial sections acquired from the supraclavicular neck to the pubic symphysis. Coronal and sagittal reformats were performed. For radiation dose reduction, the following was used: automated exposure control, adjustment of mA and/or kV according to patient size. COMPARISON: [facility], CT, CHEST ABDOMEN PELVIS WITH CONTRAST, 12/21/2008, 10:53. FINDINGS: Image quality: Good Lungs and pleura: Basal scarring/atelectasis. No focal airspace disease or pleural effusions. No overtly suspicious pulmonary nodule. A few micro nodules and granulomas are present, attention on follow-up. For example left lung apex 05/11. Mediastinum, heart, and esophagus: Nonspecific mild distal esophageal wall thickening, not well evaluated on CT. Borderline cardiomegaly. Aortic valve and annular calcifications. Coronary calcifications. No pathologic adenopathy by size criteria. Chest wall and thyroid: Thyroid is unremarkable. No axillary adenopathy by size criteria a left chest wall pulse generator is present. Solid organs: There are multiple hepatic cysts. Gallbladder is unremarkable. Mildly prominent biliary tree is similar to prior. No pathologic pancreatic ductal dilation. Spleen size is at the upper limit of normal at 12 cm AP. No adrenal nodules. No hydronephrosis. Vessels and lymph nodes: No abdominal aortic aneurysm. The main portal vein is patent. No abdominal pelvic adenopathy by size criteria. Bowel and peritoneum: No evidence of small bowel obstruction. No pathologic ascites. Above average fecal loading. No abscess. Body wall: Unremarkable Pelvis: Bladder is under distended, limiting evaluation. Prostate is not well evaluated. Radiation markers are present, along with dystrophic calcifications. Bones: Degenerative changes, without overtly suspicious osseous lesion. There are age-indeterminate endplate deformities, for example at L2. IMPRESSION: No active metastases or lymphadenopathy by size criteria. The spleen measures up to 12 cm, at the upper limit of normal. Other stable/incidental findings above. Dictated by: Roberto Denney M.D. on 04/05/2023 at 14:43 Approved by: Roberto Denney M.D. on 04/05/2023 at 14:52
== END ==
PROVIDERS: PCP Family Medicine; Referring Provider Internal Medicine Hematology & Oncology; Visit Provider Internal Medicine Hematology & Oncology
DX: C91.40 Hairy cell leukemia not having achieved remission (principal); C61 Malignant neoplasm of prostate; R61 Generalized hyperhidrosis; I25.10 Atherosclerotic heart disease of native coronary artery without angina pectoris; K76.89 Other specified diseases of liver
CPT/HCPCS: 71260; 74177; Q9967

== ENCOUNTER → 2023-06-25 15:27 | Outpatient (CLI) | payer MEDICARE, OTHER, SELFPAY ==
[2022-10-28 19:59] VITALS: BMI 22.9
== END ==
PROVIDERS: PCP Family Medicine; Visit Provider Urology
DX: R31.9 Hematuria, unspecified (principal); R39.9 Unspecified symptoms and signs involving the genitourinary system; N39.41 Urge incontinence; K59.00 Constipation, unspecified; Z85.46 Personal history of malignant neoplasm of prostate; Z90.79 Acquired absence of other genital organ(s); Z92.3 Personal history of irradiation
CPT/HCPCS: 51798; 81002; 87086; 99214

== ENCOUNTER 2023-07-11 10:49 | Emergency (ER) | payer MEDICARE, OTHER, SELFPAY ==
[2023-06-25 16:11] VITALS: BMI 22.9
[2023-07-11] VITALS (12 sets, daily range): BP systolic 131–172; BP diastolic 62–73; PULSE 51–62; RESP 12–33; TEMP 36.7; O2SAT 94–96; BMI 22.1
--- NOTE | 2023-07-11 10:55 | DI.RAD.S_ITS ---
PROCEDURE: XR CHEST 1V INDICATIONS: chest pain TECHNIQUE: One view of the chest was acquired. COMPARISON: [facility], CR, XR CHEST 1V, 12/21/2022, 20:48. [facility], CR, XR CHEST 1V, 12/04/2022, 11:42. FINDINGS: Surgical changes and devices: Left chest wall neurostimulator device redemonstrated. Lungs and pleura: Lungs are clear. No pleural effusions or pneumothorax. Mediastinum: Mediastinal contours appear normal. Heart size is normal. Bones and chest wall: No suspicious bony lesions. Overlying soft tissues appear unremarkable. IMPRESSION: No acute cardiopulmonary process. Dictated by: Ghanshyam Pichardo M.D. on 07/11/2023 at 11:58 Approved by: Ghanshyam Pichardo M.D. on 07/11/2023 at 12:02
[2023-07-11 11:08] LABS: Add Manual Diff / Slide Review NO; Basophils Absolute Auto 0 /uL (0-100); Basophils Percent Auto 0.5 % (0-2); Eosinophils Absolute Auto 200 /uL (0-450); Eosinophils Percent Auto 5.2 % (2-4); Hematocrit 36.2 % (41-53); Hemoglobin 12.7 g/dL (13.5-17.5); Lymphocytes Absolute Auto 800 /uL (1100-4500); Lymphocytes Percent Auto 16.3 % (25-40); Mean Corpuscular Hemoglobin 30.6 PG (26-34); Mean Corpuscular Volume 87.4 fL (80-100); Monocytes Absolute Auto 500 /uL (0-900); Monocytes Percent Auto 10.1 % (3-14); Neutrophils Absolute Auto 3200 /uL (1500-7000); Neutrophils Percent Auto 67.9 % (50-75); Platelet Count 160 X10^3/uL (150-400); Red Blood Cell Count 4.15 X10^6/uL (4.5-5.9); White Blood Cell Count 4.7 X10^3/uL (4.5-11.0)
[2023-07-11 11:14] LABS: INR 1.2 (0.9-1.3); Prothrombin Time 13.5 SECONDS (10.1-12.7)
[2023-07-11] MEDS: ASPIRIN 81 MG CHEW TAB 324 MG PO (11:15)
[2023-07-11 11:17] LABS: PTT Partial Thromboplastin Tim 30 SECONDS (26-36)
[2023-07-11 11:19] LABS: Alanine Aminotransferase 13 IU/L (<50); Albumin 3.7 g/dL (3.5-5.0); Albumin Globulin Ratio 1.4 (1.0-2.8); Alkaline Phosphatase 78 U/L (38-126); Aspartate Aminotransferase 25 IU/L (17-59); BUN Creatinine Ratio 34.1 (6-22); Bilirubin Total 0.7 mg/dL (0.2-1.3); Blood Urea Nitrogen 30 mg/dL (9-20); Calcium 8.9 mg/dL (8.4-10.2); Carbon Dioxide 28 mmol/L (22-32); Chloride 104 mmol/L (98-107); Creatine Kinase 62 U/L (55-170); Estimated Glomerular Filt Rate > 60 mL/min (>60); Globulin 2.7 g/dL (1.7-4.1); Glucose 111 mg/dL (80-110); HEMOLYSIS < 15 (0-50); Lipase 73 U/L (23-300); Magnesium 2.1 mg/dL (1.6-2.3); Potassium 3.9 mmol/L (3.4-5.1); Sodium 138 mmol/L (137-145); Total Protein 6.4 g/dL (6.3-8.2)
[2023-07-11 11:30] LABS: Troponin I < 0.012 ng/mL (0.01-0.034)
[2023-07-11 13:29] LABS: Troponin I < 0.012 ng/mL (0.01-0.034)
[2023-07-11 14:26] LABS: NT-proBNP (BNP-Adult 18+) 235 pg/mL (<450)
--- NOTE | 2023-07-11 14:32 | ED_ITS ---
HPI - Chest Pain General Chief Complaint: Chest Pain Stated Complaint: chest pain Time Seen by Provider: 07/11/23 13:57 Source: patient Mode of arrival: Ambulatory Limitations: no limitations History of Present Illness HPI narrative: 78-year-old male with history of Parkinson's, hypertension, on aspirin 81 mg daily with complaint of right-sided chest pain. Patient states he did have a fall yesterday into the wall he states it was pretty hard. He thought he just bruised his ribs. He was doing okay overnight. He woke up and moved around in the bed and had sudden increase in right-sided chest pain. He states it was quite intense it was worse with deep inhalation. He states sitting up is okay but lying backwards or movement is worsening his symptoms. He did try some ibuprofen with minimal to no change. He tried nitro sublingual x1 which was helpful. Pain almost entirely resolved. He denies any shortness of breath, no fevers or chills. No nausea or vomiting. No diaphoresis. Stooling regularly currently. He is following with urologist for frequent nocturia. Patient states he had cardiac catheterization in the past year which was negative after having a nuclear stress test. Patient states he does not tolerate codeine or narcotics well. Primary care is Dr. Benitez. Related Data Home Medications Medication Instructions Recorded Confirmed carbidopa ER 50 mg-levodopa 200 mg 1 tab PO QID 04/08/18 06/25/23 tablet,extended release acetaminophen 325 mg tablet 325 mg PO Q6H PRN Pain (Scale 06/26/18 06/25/23 (Tylenol) Score 1-3) carbidopa 25 mg-levodopa 100 mg 25 - 100 tab PO QID PRN 07/14/20 06/25/23 disintegrating tablet parkinson's symptoms amlodipine 5 mg tablet 7.5 mg PO DAILY 10/27/22 06/25/23 atorvastatin 40 mg tablet 40 mg PO DAILY 02/15/23 06/25/23 isosorbide mononitrate 30 mg 30 ea PO DAILY 02/15/23 06/25/23 tablet,extended release 24 hr docusate sodium 250 mg capsule 250 mg PO DAILY 06/25/23 06/25/23 omeprazole 10 mg capsule,delayed 10 mg PO DAILY 06/25/23 06/25/23 release polyethylene glycol 3350 17 17 g PO DAILY 06/25/23 06/25/23 gram/dose oral powder sennosides 8.6 mg tablet (senna) 8.6 mg PO DAILY 06/25/23 06/25/23 tamsulosin 0.4 mg capsule 0.4 mg PO DAILY 06/25/23 06/25/23 Previous Rx's Medication Instructions Recorded Disabled Parking #1 ea 03/05/19 losartan 50 mg tablet 50 mg PO BID #180 tabs 02/02/21 metoprolol succinate 50 mg 50 mg PO BID #90 tabs 02/16/22 tablet,extended release 24 hr ciprofloxacin HCl 250 mg tablet 250 mg PO BID #6 tabs 06/28/23 Allergies Allergy/AdvReac Type Severity Reaction Status Date / Time adhesive tape Allergy Intermediate Blister Verified 07/11/23 10:56 cefuroxime Allergy Mild rash/ Verified 07/11/23 10:56 itching codeine [CODEINE] Allergy Mild NAUSEA Verified 07/11/23 10:56 clindamycin AdvReac N/V Verified 07/11/23 10:56 Review of Systems Review of Systems ROS Unobtainable: All systems reviewed & are unremarkable except as noted in HPI and below Patient History Medical History Acute non-ST elevation myocardial infarction (NSTEMI) Chronic low back pain with sciatica Coronary artery disease CVA (cerebral vascular accident) Hairy cell leukemia Headache History of radiation therapy Hx of chest pain Hypertension Lower urinary tract symptoms Paresthesias in left hand Parkinsons disease Urinary incontinence Surgical History History of tonsillectomy S/P deep brain stimulator placement S/P TURP Social History marital status: number of children: 2 household members: spouse occupational status: previously employed and other Smoking Status: Former smoker Tobacco: How many years used: 5 alcohol intake: never substance use type: does not use caffeine: No Type(s) of exercise: walking frequency: other Smoking Status: Former smoker alcohol intake frequency: holidays/special occasions only Substance Use Type: does not use Exam Narrative Exam Narrative: GENERAL: Alert and oriented x three, elderly male in mild distress. HEENT: Head normocephalic, atraumatic, EOMI, pupils reactive, face symmetric, moist mucous membranes NECK: Supple, full range of motion CARDIOVASCULAR: Regular rate and rhythm without murmurs, rubs or gallops. Patient has right lateral chest wall tenderness with palpation. No obvious ecchymosis, no crepitus or subcutaneous emphysema. Symmetrical movement. No rash, blisters or other changes appreciated. RESPIRATORY: Breath sounds equal bilaterally, no wheezes rales or rhonchi. No tachypnea accessory muscle use. ABDOMEN: Soft, nontender. Normoactive bowel sounds all 4 quadrants. No guarding or rebound, rigidity, no mass : No CVA tenderness EXTREMITIES: Normal range of motion, no clubbing or edema. 2+ pulses bilateral upper extremities. Neurovascularly intact NEUROLOGICAL: Cranial nerves II through XII grossly intact. Moving all ext remities, patient has sudden uncontrolled movements consistent with Parkinson's. SKIN: Warm, dry, no petechiae, no rashes or lesions. Initial Vital Signs Initial Vital Signs: Vital Signs Temperature 98.0 F 07/11/23 10:50 Pulse Rate 61 07/11/23 10:50 Respiratory Rate 24 07/11/23 10:50 Blood Pressure 152/71 H 07/11/23 10:50 Pulse Oximetry 96 07/11/23 10:50 Oxygen Delivery Method Room Air 07/11/23 10:50 Course Orders Ordered: Discontinued Medications Aspirin (Aspirin 81 Mg Chew Tab) 324 mg PO NOW ONE Stop: 07/11/23 10:56 Last Admin: 07/11/23 11:15 Dose: 324 mg Documented By: AMV Vital Signs Vital signs: Vital Signs - 8 hr 07/11/23 10:50 07/11/23 10:54 07/11/23 10:55 Temperature 98.0 F Pulse Rate 61 62 Respiratory Rate 24 23 Blood Pressure 152/71 H 152/71 H Pulse Oximetry 96 95 Oxygen Delivery Method Room Air 07/11/23 10:55 07/11/23 11:00 07/11/23 11:00 Temperature Pulse Rate 60 61 Respiratory Rate 24 19 Blood Pressure 149/73 H Pulse Oximetry 95 95 Oxygen Delivery Method 07/11/23 11:30 07/11/23 11:30 07/11/23 12:00 Temperature Pulse Rate 57 L Respiratory Rate 18 Blood Pressure 154/72 H 145/70 H Pulse Oximetry 94 Oxygen Delivery Method 07/11/23 12:00 07/11/23 12:30 07/11/23 12:30 Temperature Pulse Rate 54 L 52 L Respiratory Rate 12 Blood Pressure 150/68 H Pulse Oximetry 94 94 Oxygen Delivery Method 07/11/23 13:00 07/11/23 13:00 07/11/23 13:30 Temperature Pulse Rate 60 Respiratory Rate 33 H Blood Pressure 131/62 148/69 H Pulse Oximetry 96 Oxygen Delivery Method 07/11/23 13:30 07/11/23 14:00 07/11/23 14:01 Temperature Pulse Rate 51 L 51 L Respiratory Rate 12 21 Blood Pressure 160/67 H Pulse Oximetry 95 96 Oxygen Delivery Method 07/11/23 14:01 Temperature Pulse Rate 52 L Respiratory Rate 13 Blood Pressure Pulse Oximetry 95 Oxygen Delivery Method MDM - Chest Pain Lab Data 07/11/23 10:57 07/11/23 10:57 Labs: Lab Results 07/11/23 07/11/23 07/11/23 Range/Units 10:57 10:57 10:57 WBC 4.7 (4.5-11.0) X10^3/uL RBC 4.15 L (4.5-5.9) X10^6/uL Hgb 12.7 L (13.5-17.5) g/dL Hct 36.2 L (41-53) % MCV 87.4 (80-100) fL MCH 30.6 (26-34) PG MCHC 35.0 (30-36) % RDW 13.0 (11.6-14.8) % Plt Count 160 (150-400) X10^3/uL Neut % (Auto) 67.9 (50-75) % Lymph % (Auto) 16.3 L (25-40) % [place] % (Auto) 10.1 (3-14) % Eos % (Auto) 5.2 H (2-4) % Baso % (Auto) 0.5 (0-2) % Neut # (Auto) 3200 (7280-7708) /uL Lymph # (Auto) 800 L (8253-3977) /uL [place] # (Auto) 500 (0-900) /uL Eos # (Auto) 200 (0-450) /uL Baso # (Auto) 0 (0-100) /uL PT 13.5 H (10.1-12.7) SECONDS INR 1.2 (0.9-1.3) APTT 30 (26-36) SECONDS Sodium 138 (137-145) mmol/L Potassium 3.9 (3.4-5.1) mmol/L Chloride 104 (98-107) mmol/L Carbon Dioxide 28 (22-32) mmol/L BUN 30 H (9-20) mg/dL Creatinine 0.88 (0.66-1.25) mg/dL Estimated GFR > 60 (>60) mL/min BUN/Creatinine Ratio 34.1 H (6-22) Glucose 111 H (80-110) mg/dL Calcium 8.9 (8.4-10.2) mg/dL Magnesium 2.1 (1.6-2.3) mg/dL Total Bilirubin 0.7 (0.2-1.3) mg/dL AST 25 (17-59) IU/L ALT 13 (<50) IU/L Alkaline Phosphatase 78 (38-126) U/L Total Creatine Kinase 62 (55-170) U/L Troponin I < 0.012 (0.01-0.034) ng/mL NT-Pro-B Natriuret Pep (<450) pg/mL Total Protein 6.4 (6.3-8.2) g/dL Albumin 3.7 (3.5-5.0) g/dL Globulin 2.7 (1.7-4.1) g/dL Albumin/Globulin Ratio 1.4 (1.0-2.8) Lipase 73 (23-300) U/L 07/11/23 07/11/23 Range/Units 12:59 13:00 WBC (4.5-11.0) X10^3/uL RBC (4.5-5.9) X10^6/uL Hgb (13.5-17.5) g/dL Hct (41-53) % MCV (80-100) fL MCH (26-34) PG MCHC (30-36) % RDW (11.6-14.8) % Plt Count (150-400) X10^3/uL Neut % (Auto) (50-75) % Lymph % (Auto) (25-40) % [place] % (Auto) (3-14) % Eos % (Auto) (2-4) % Baso % (Auto) (0-2) % Neut # (Auto) (9689-7876) /uL Lymph # (Auto) (3873-2024) /uL [place] # (Auto) (0-900) /uL Eos # (Auto) (0-450) /uL Baso # (Auto) (0-100) /uL PT (10.1-12.7) SECONDS INR (0.9-1.3) APTT (26-36) SECONDS Sodium (137-145) mmol/L Potassium (3.4-5.1) mmol/L Chloride (98-107) mmol/L Carbon Dioxide (22-32) mmol/L BUN (9-20) mg/dL Creatinine (0.66-1.25) mg/dL Estimated GFR (>60) mL/min BUN/Creatinine Ratio (6-22) Glucose (80-110) mg/dL Calcium (8.4-10.2) mg/dL Magnesium (1.6-2.3) mg/dL Total Bilirubin (0.2-1.3) mg/dL AST (17-59) IU/L ALT (<50) IU/L Alkaline Phosphatase (38-126) U/L Total Creatine Kinase (55-170) U/L Troponin I < 0.012 (0.01-0.034) ng/mL NT-Pro-B Natriuret Pep 235 (<450) pg/mL Total Protein (6.3-8.2) g/dL Albumin (3.5-5.0) g/dL Globulin (1.7-4.1) g/dL Albumin/Globulin Ratio (1.0-2.8) Lipase (23-300) U/L Imaging Data Chest x-ray: Radiologist's Impression: Olu Rivas V??78??M??1945 ? Allergy/Adv: adhesive tape, cefuroxime, codeine, clindamycin (More??) Close Chest X-Ray (Signed) Ghanshyam Pichardo - 07/11/23 Chest/Abdomen/Pelvis CT (Signed) Roberto Denney - 04/05/23 Carotid Doppler Study (Signed) Kisha Rodriguez - 12/28/22 Chest X-Ray (Signed) Kota Kuhn - 12/21/22 Chest X-Ray (Signed) Brenton Turner - 12/04/22 Radiology Report (Cancelled) Julio Fairbanks - 10/29/22 Myocardial Perfusion Scan Nuc Med (Signed) Julio Fairbanks - 10/29/22 Telemetry Strips 10/28/22 Echocardiogram Ultrasound (Signed) Tara Alcantarakaushik - 10/28/[address] (Signed) KuhnKota - 10/26/22 Chest X-Ray (Signed) KuhnVick guajardoel - 10/26/22 Abdomen Ultrasound (Signed) Navin Bright - 07/09/[address] (Signed) EmilieVanita sampson - 02/06/22 Chest X-Ray (Signed) EmilieVanita sampson - 02/06/22 Chest X-Ray (Signed) Brenton Turner - 02/02/22 Echocardiogram Ultrasound (Signed) Barbara York - 03/15/21 Myocardial Perfusion Scan Nuc Med (Signed) Jemal Alcantarau - 01/26/21 Chest X-Ray (Signed) Scott Phanence - 12/30/20 Telemetry Strips 08/23/20 Foot X-Ray (Signed) Dany Arevalo - 07/14/20 Head/Neck CTA (Signed) Navin Bright - 06/05/20 Telemetry Strips 06/05/[address] (Signed) Lance Mahajan - 06/05/20 Chest X-Ray (Signed) Lance Mahajan - 06/05/20 Carotid Doppler Study (Signed) Navin Bright - 06/05/20 Abdomen/Pelvis CT (Signed) Brenton Turner - 05/28/19 Chest X-Ray (Signed) Brenton Turner - 05/28/19 Echocardiogram Ultrasound (Signed) Shirley Warren - 05/25/19 Head/Neck CTA (Signed) Lance Mahajan - 05/24/19 Telemetry Strips 05/24/[address] (Signed) Lance Mahajan - 05/24/19 Chest X-Ray (Signed) Lance Mahajan - 05/24/19 Lumbar Spine X-Ray (Signed) Aga Soto - 04/15/19 Foot X-Ray (Signed) Ankit Shepherd - 03/04/19 Chest X-Ray (Signed) EmilieVanita sampson - 02/12/[address] (Signed) Emilie,Vanita - 10/22/18 Launch?Image [address] [address] XRay Report Signed Patient: Olu Rivas V MR#: [id number] : 1945 Acct:[id number] Age/Sex: 78 / M Date of Service: 07/11/23 Loc: ED Accession Number: [id number] ?? Procedure: XR chest 1V Ordering Provider: Kellie Gambino D.O. PROCEDURE:? XR CHEST 1V ? INDICATIONS:? chest pain ? TECHNIQUE:? One view of the chest was acquired.? ? COMPARISON:? [facility], CR, XR CHEST 1V, 12/21/2022, 20:48.? [facility], CR, XR CHEST 1V, 12/04/2022, 11:42. ? FINDINGS:? ? Surgical changes and devices:? Left chest wall neurostimulator device redemonstrated. ? Lungs and pleura:? Lungs are clear.? No pleural effusions or pneumothorax.? ? Mediastinum:? Mediastinal contours appear normal.? Heart size is normal.? ? Bones and chest wall:? No suspicious bony lesions.? Overlying soft tissues appear unremarkable.? ? IMPRESSION:? No acute cardiopulmonary process. ? ? Dictated by: Ghanshyam Pichardo M.D. on 07/11/2023 at 11:58 ? ? Approved by: Ghanshyam Pichardo M.D. on 07/11/2023 at 12:02?? ECG Data Attestation: I personally reviewed and interpreted this ECG as follows: Prior ECG tracings: available for review Interpretation: EKG 1. Shows a rate of 58, MA 162 QRS 82 and QTC of 398 patient has prior from 12/30/2020 which appears similar, no acute ST changes appreciated. EKG 2. Shows sinus rhythm, rate of 53, MA 192 QRS 88 QTC of 418. No acute ST changes noted appears similar to prior. These are from the monitor. Patient movement was too disruptive to the EKG machine. MDM Narrative Medical decision making narrative: This is a 78-year-old male with reproducible right-sided chest pain with recent fall, suspect rib fractures but patient states pain did get better after trying a nitro sublingual at home so did have cardiac workup. It is very localized to the right side it is very reproducible with mild palpation. Patient's chest x- ray does not show new more other acute changes. Labs including CBC, CMP, troponin x2 are negative other than showing baseline anemia at 12.7 which appears similar hemoglobin of 13 on last check. LFTs are negative. BNP is 235. Discussed with patient he prefers Tylenol orally for pain management and we will give a incentive spirometer. Discharge Plan Departure Patient Disposition: Home Clinical Impression: Contusion of rib on right side Instructions: DI for Atypical Chest Pain Activity Restrictions/Additional Instructions: Follow up with your physician if your symptoms are not improving. Your chest x-ray does not show obvious fractures but I suspect you have some small fractures or contusion of the ribs. You can take Tylenol up to a 1000 mg every 6 hours and/or Aleve as needed for pain. Use incentive spirometer hourly while awake. Please return for new or worsening symptoms increasing chest pain, shortness of breath, persistent vomiting, new rash or skin changes, passing out or other new or concerning changes. Prescriptions: No Action carbidopa-levodopa 50-200 mg tablet extended release 1 tab PO QID Patient Comments: patient states takes 2 to 5 daily. (DME) Disabled Parking 0 .ROUTE .MEDSUPPLY Qty: 1 0RF Rx Instructions: As directed metoprolol succinate 50 mg tablet extended release 24 hr 50 mg PO BID Qty: 90 1RF ciprofloxacin HCl 250 mg tablet 250 mg PO BID Qty: 6 0RF Rx Instructions: Please start on Jul 11. Take one tablet twice daily one day prior to procedure, take one tablet twice daily day of procedure, take one tablet twice daily day after procedure. losartan 50 mg tablet 50 mg PO BID Qty: 180 3RF carbidopa-levodopa 25-100 mg tablet,disintegrating 25 - 100 tab PO QID PRN (Reason: parkinson's symptoms) atorvastatin 40 mg tablet 40 mg PO DAILY isosorbide mononitrate 30 mg tablet extended release 24 hr 30 ea PO DAILY Patient Comments: TAKE ONE TABLET BY MOUTH ONE TIME DAILY acetaminophen [Tylenol] 325 mg Tablet 325 mg PO Q6H PRN (Reason: Pain (Scale Score 1-3)) amlodipine 5 mg tablet 7.5 mg PO DAILY Rx Instructions: increase to 7.5mg daily if blood pressure above 140/90 daily. omeprazole 10 mg capsule,delayed release(DR/EC) 10 mg PO DAILY polyethylene glycol 3350 17 gram/dose powder 17 g PO DAILY sennosides [senna] 8.6 mg tablet 8.6 mg PO DAILY docusate sodium 250 mg capsule 250 mg PO DAILY tamsulosin 0.4 mg capsule 0.4 mg PO DAILY Referrals: Anson Benitez MD [Primary Care Provider] - Stand Alone Forms: Patient Portal/API
== END 2023-07-11 15:09 | disposition home or self-care (01) ==
PROVIDERS: Emergency Provider Emergency Medicine; PCP Family Medicine
DX: S20.211A Contusion of right front wall of thorax, initial encounter (principal); R07.9 Chest pain, unspecified; W19.XXXA Unspecified fall, initial encounter
CPT/HCPCS: 36415; 71045; 80053; 82550; 83690; 83735; 83880; 84484; 85025; 85610; 85730; 93005; 99284

== ENCOUNTER → 2023-07-26 17:41 | Outpatient (CLI) | payer MEDICARE, OTHER, SELFPAY ==
[2023-06-25 16:11] VITALS: BMI 22.9
[2023-07-26 18:53] LABS: Clostridium Difficile Tox PCR Positive for C. diff (Negative)
[2023-07-30 17:45] LABS: C difficie Toxins A and B, EIA Negative (Negative)
== END ==
PROVIDERS: PCP Family Medicine; Referring Provider Urology; Visit Provider Urology
DX: C61 Malignant neoplasm of prostate (principal); K59.00 Constipation, unspecified; R39.9 Unspecified symptoms and signs involving the genitourinary system
CPT/HCPCS: 87324; 87493

== ENCOUNTER 2023-10-20 09:04 | Emergency (ER) | payer MEDICARE, OTHER, SELFPAY ==
[2023-06-25 16:11] VITALS: BMI 22.9
[2023-10-20 09:10] VITALS: BP 168/79; PULSE 69; RESP 16; TEMP 36.3; O2SAT 98; BMI 22.9
--- NOTE | 2023-10-20 09:24 | ED.GENADULT ---
HPI - General Adult General Chief complaint: Dental/Oral Stated complaint: sore on gum/ thinks infection Time Seen by Provider: 10/20/23 09:06 Source: patient Mode of arrival: Family Vehicle History of Present Illness HPI narrative: 78-year-old gentleman with a history of Parkinson's disease with brain stimulator in place, coronary artery disease, hypertension, hyperlipidemia, hairy cell leukemia, history of prostate cancer presents complaining of right upper quadrant pain with possibility of developing dental infection. He also notes that 6 days ago he had his COVID and influenza shot and has had mild sniffles, cough and myalgias. He is not short of breath, cough is not productive. He is having no abdominal pain, vomiting, diarrhea. He describes a fever to 98? at home. Related Data Home Medications Medication Instructions Recorded Confirmed carbidopa ER 50 mg-levodopa 200 mg 1 tab PO QID 04/08/18 06/25/23 tablet,extended release acetaminophen 325 mg tablet 325 mg PO Q6H PRN Pain (Scale 06/26/18 06/25/23 (Tylenol) Score 1-3) carbidopa 25 mg-levodopa 100 mg 25 - 100 tab PO QID PRN 07/14/20 06/25/23 disintegrating tablet parkinson's symptoms amlodipine 5 mg tablet 7.5 mg PO DAILY 10/27/22 06/25/23 atorvastatin 40 mg tablet 40 mg PO DAILY 02/15/23 06/25/23 isosorbide mononitrate 30 mg 30 ea PO DAILY 02/15/23 06/25/23 tablet,extended release 24 hr docusate sodium 250 mg capsule 250 mg PO DAILY 06/25/23 06/25/23 omeprazole 10 mg capsule,delayed 10 mg PO DAILY 06/25/23 06/25/23 release polyethylene glycol 3350 17 17 g PO DAILY 06/25/23 06/25/23 gram/dose oral powder sennosides 8.6 mg tablet (senna) 8.6 mg PO DAILY 06/25/23 06/25/23 tamsulosin 0.4 mg capsule 0.4 mg PO DAILY 06/25/23 06/25/23 Previous Rx's Medication Instructions Recorded Disabled Parking #1 ea 03/05/19 losartan 50 mg tablet 50 mg PO BID #180 tabs 02/02/21 metoprolol succinate 50 mg 50 mg PO BID #90 tabs 02/16/22 tablet,extended release 24 hr ciprofloxacin HCl 250 mg tablet 250 mg PO BID #6 tabs 06/28/23 metronidazole 250 mg tablet 250 mg PO QID #40 tabs 08/06/23 Allergies Allergy/AdvReac Type Severity Reaction Status Date / Time adhesive tape Allergy Intermediate Blister Verified 10/20/23 09:14 cefuroxime Allergy Mild rash/ Verified 10/20/23 09:14 itching codeine [CODEINE] Allergy Mild NAUSEA Verified 10/20/23 09:14 clindamycin AdvReac N/V Verified 10/20/23 09:14 Review of Systems Review of Systems Narrative: Pertinent positive and negative findings as per HPI Patient History Medical History History of radiation therapy Urinary incontinence Lower urinary tract symptoms Hx of chest pain Coronary artery disease Acute non-ST elevation myocardial infarction (NSTEMI) Headache Chronic low back pain with sciatica Paresthesias in left hand CVA (cerebral vascular accident) Hypertension Hairy cell leukemia Parkinsons disease Surgical History S/P deep brain stimulator placement S/P TURP History of tonsillectomy Social History marital status: number of children: 2 household members: spouse occupational status: previously employed and other Smoking Status: Former smoker Tobacco: How many years used: 5 alcohol intake: never substance use type: does not use caffeine: No Type(s) of exercise: walking frequency: other Smoking Status: Former smoker alcohol intake frequency: a few times a month Substance Use Type: does not use Exam Initial Vital Signs Initial Vital Signs: Vital Signs Temperature 97.3 F L 10/20/23 09:10 Pulse Rate 69 10/20/23 09:10 Respiratory Rate 16 10/20/23 09:10 Blood Pressure 168/79 H 10/20/23 09:10 Pulse Oximetry 98 10/20/23 09:10 Oxygen Delivery Method Room Air 10/20/23 09:10 General: Healthy appearing, in no acute distress. Able to give a complete and coherent history. Well-nourished well-developed HEENT: Moist mucous membranes, normal sclera with reactive pupils, minor tenderness along the buccal mucosa right upper quadrant without obvious abscess. No obvious tooth abnormality or tenderness today. Neck: No cervical adenopathy Respiratory: Lungs are clear to auscultation, no wheezing no rales no rhonchi. Full and symmetrical air movement Cardiac: Regular rate and rhythm no murmurs no bruits Skin: Warm and dry, no rashes Neurologic: Grossly neurologically intact with no obvious asymmetries or abnormalities Psych: Cooperative, appropriate insight and affect Course Vital Signs Vital signs: Vital Signs - 8 hr 10/20/23 09:10 Temperature 97.3 F L Pulse Rate 69 Respiratory Rate 16 Blood Pressure 168/79 H Pulse Oximetry 98 Oxygen Delivery Method Room Air Medical Decision Making MDM Narrative Medical decision making narrative: CC: Right upper quadrant/maxillary dental pain and mild upper respiratory symptoms Complicating co-morbidities: Hairy cell leukemia, history of prostate cancer and prostate issues, coronary artery disease, hypertension, hyperlipidemia, Parkinson's disease Data collected from: patient, Medical records reviewed: Oncology notes from April reviewed, discharge summary after an NSTEMI reviewed from October 2022 Differential considered: Dental abscess, sinus infection, regarding the respiratory symptoms viral syndrome, pneumonia, congestive heart failure Exam documented above, pertinent findings include: Exam is relatively benign. There is some tenderness along the posterior molars on the right but no localizing symptoms and no obvious abscess pointing. He does not describe significant tenderness to tapping of any of the right upper molars. No cervical adenopathy, chest is completely clear Treatments: Amoxicillin is given for his dental infection Discussion: 78-year-old gentleman with dental pain that likely is developing periapical abscess. At this point there is no indication of sinus infection, deeper abscess anything that needs draining or would require additional imaging or lab work. His is concerned with the mild cough that he is had over this last week. His exam is reassuring and there is no evidence of secondary severe infection. We did review signs and symptoms of mild respiratory symptoms. I also recommended that he avoid using the multi symptom medications that he has been apparently drinking all day as some of the decongestants there can cause acute urinary retention. Reviewed anticipated course of recovery for upper respiratory infection. He has plans to call his dentist Saturday morning to deal with the dental infection Discharge Plan Departure Patient Disposition: Home Clinical Impression: Dental infection Instructions: DI for Dental Pain Activity Restrictions/Additional Instructions: Thank you for coming in today I would not be surprised if you are in fact developing a small infection around 1 of the upper molars on the right side. I have given you a prescription for amoxicillin to use for the next 5 days. Please do contact your dentist on Saturday morning for definitive treatment Using Tylenol to help with the pain will be most appropriate Regarding your cough and cold symptoms, I am not seeing any evidence for pneumonia. I would recommend that you stop using the multi system liquid cough and cold medications as they can have interactions and side effects with the medications that you are taking. For cough, I recommend Mucinex and any liquid syrup that contains dextromethorphan (Robitussin DM is my favorite). Tylenol can be helpful for the aches and pains. I would avoid decongestants as they can complicate some of your other medications. If you find that you are getting worse or develop any new symptoms, please feel free to return to the emergency department for further evaluation. Prescriptions: No Action carbidopa-levodopa 50-200 mg tablet extended release 1 tab PO QID Patient Comments: patient states takes 2 to 5 daily. (DME) Disabled Parking 0 .ROUTE .MEDSUPPLY Qty: 1 0RF Rx Instructions: As directed metoprolol succinate 50 mg tablet extended release 24 hr 50 mg PO BID Qty: 90 1RF ciprofloxacin HCl 250 mg tablet 250 mg PO BID Qty: 6 0RF Rx Instructions: Please start on Jul 11. Take one tablet twice daily one day prior to procedure, take one tablet twice daily day of procedure, take one tablet twice daily day after procedure. metronidazole 250 mg tablet 250 mg PO QID Qty: 40 0RF losartan 50 mg tablet 50 mg PO BID Qty: 180 3RF carbidopa-levodopa 25-100 mg tablet,disintegrating 25 - 100 tab PO QID PRN (Reason: parkinson's symptoms) atorvastatin 40 mg tablet 40 mg PO DAILY isosorbide mononitrate 30 mg tablet extended release 24 hr 30 ea PO DAILY Patient Comments: TAKE ONE TABLET BY MOUTH ONE TIME DAILY acetaminophen [Tylenol] 325 mg Tablet 325 mg PO Q6H PRN (Reason: Pain (Scale Score 1-3)) amlodipine 5 mg tablet 7.5 mg PO DAILY Rx Instructions: increase to 7.5mg daily if blood pressure above 140/90 daily. omeprazole 10 mg capsule,delayed release(DR/EC) 10 mg PO DAILY polyethylene glycol 3350 17 gram/dose powder 17 g PO DAILY sennosides [senna] 8.6 mg tablet 8.6 mg PO DAILY docusate sodium 250 mg capsule 250 mg PO DAILY tamsulosin 0.4 mg capsule 0.4 mg PO DAILY Referrals: Anson Benitez MD [Primary Care Provider] - Stand Alone Forms: Patient Portal/API
[2023-10-20 10:26] VITALS: BP 163/76; PULSE 72; RESP 16; TEMP 36.8; O2SAT 97
== END 2023-10-20 10:27 | disposition home or self-care (01) ==
PROVIDERS: Emergency Provider Emergency Medicine; PCP Family Medicine
DX: K04.7 Periapical abscess without sinus (principal)
CPT/HCPCS: 99281; 99283

== ENCOUNTER 2023-10-26 20:20 | Emergency (ER) | payer MEDICARE, OTHER, SELFPAY ==
[2023-06-25 16:11] VITALS: BMI 22.9
[2023-10-26] VITALS (9 sets, daily range): BP systolic 203–233; BP diastolic 93–105; PULSE 67–76; RESP 17–21; TEMP 36.8; O2SAT 96–98
--- NOTE | 2023-10-26 20:39 | DI.RAD.S_ITS ---
PROCEDURE: XR CHEST 1V INDICATIONS: chest pain TECHNIQUE: One view of the chest was acquired. COMPARISON: [facility], CR, XR CHEST 1V, 07/11/2023, 11:43. [facility], CR, XR CHEST 1V, 12/21/2022, 20:48. FINDINGS: Surgical changes and devices: Electronic control device over the left chest with leads extending cephalad above the imaging margin at least into the upper neck.. Lungs and pleura: Lungs are clear. No pleural effusions or pneumothorax. Mediastinum: Mediastinal contours appear normal. Heart size is normal. Bones and chest wall: No suspicious bony lesions. Overlying soft tissues appear unremarkable. IMPRESSION: No acute cardiopulmonary abnormality is seen. Stable positioning of left-sided electronic control device with leads extending above the imaging margin. Dictated by: Ankit Shepherd M.D. on 10/26/2023 at 20:59 Approved by: Ankit Shepherd M.D. on 10/26/2023 at 21:00
[2023-10-26 20:51] LABS: Add Manual Diff / Slide Review NO; Basophils Absolute Auto 0 /uL (0-100); Basophils Percent Auto 0.4 % (0-2); Eosinophils Absolute Auto 200 /uL (0-450); Eosinophils Percent Auto 3.1 % (2-4); Hematocrit 40.8 % (41-53); Hemoglobin 14.1 g/dL (13.5-17.5); Lymphocytes Absolute Auto 700 /uL (1100-4500); Lymphocytes Percent Auto 13.5 % (25-40); Mean Corpuscular HGB Conc 34.5 % (30-36); Mean Corpuscular Hemoglobin 30.5 PG (26-34); Mean Corpuscular Volume 88.5 fL (80-100); Monocytes Absolute Auto 500 /uL (0-900); Neutrophils Absolute Auto 3700 /uL (1500-7000); Platelet Count 216 X10^3/uL (150-400); Red Blood Cell Count 4.61 X10^6/uL (4.5-5.9); Red Cell Distribution Width 12.9 % (11.6-14.8); White Blood Cell Count 5.1 X10^3/uL (4.5-11.0)
--- NOTE | 2023-10-26 20:51 | ED.GENADULT ---
HPI - General Adult General Chief complaint: Hypertension Stated complaint: tingling in fingers/face/ 40min Time Seen by Provider: 10/26/23 20:38 Source: patient and family Mode of arrival: Ambulatory History of Present Illness HPI narrative: Patient 78-year-old male history of Parkinson's with deep brain stimulator presents today with numbness and tingling in bilateral cheeks fingers and legs. He has a history of hypertension he forgot his morning medications. They report that he had physical therapy this morning he has been tired all day which is not atypical for him. In the evening after dinner he noticed blood pressure was high and he started having tingling. He is no chest pain or shortness of breath. He did take his morning meds tonight but is definitely a dose behind for the day. His blood pressure is elevated. He denies any chest pain shortness breath nausea vomiting or fever. Related Data Home Medications Medication Instructions Recorded Confirmed carbidopa ER 50 mg-levodopa 200 mg 1 tab PO QID 04/08/18 06/25/23 tablet,extended release acetaminophen 325 mg tablet 325 mg PO Q6H PRN Pain (Scale 06/26/18 06/25/23 (Tylenol) Score 1-3) carbidopa 25 mg-levodopa 100 mg 25 - 100 tab PO QID PRN 07/14/20 06/25/23 disintegrating tablet parkinson's symptoms amlodipine 5 mg tablet 7.5 mg PO DAILY 10/27/22 06/25/23 atorvastatin 40 mg tablet 40 mg PO DAILY 02/15/23 06/25/23 isosorbide mononitrate 30 mg 30 ea PO DAILY 02/15/23 06/25/23 tablet,extended release 24 hr docusate sodium 250 mg capsule 250 mg PO DAILY 06/25/23 06/25/23 omeprazole 10 mg capsule,delayed 10 mg PO DAILY 06/25/23 06/25/23 release polyethylene glycol 3350 17 17 g PO DAILY 06/25/23 06/25/23 gram/dose oral powder sennosides 8.6 mg tablet (senna) 8.6 mg PO DAILY 06/25/23 06/25/23 tamsulosin 0.4 mg capsule 0.4 mg PO DAILY 06/25/23 06/25/23 Previous Rx's Medication Instructions Recorded Disabled Parking #1 ea 03/05/19 losartan 50 mg tablet 50 mg PO BID #180 tabs 02/02/21 metoprolol succinate 50 mg 50 mg PO BID #90 tabs 02/16/22 tablet,extended release 24 hr ciprofloxacin HCl 250 mg tablet 250 mg PO BID #6 tabs 06/28/23 metronidazole 250 mg tablet 250 mg PO QID #40 tabs 08/06/23 amoxicillin 500 mg capsule 500 mg PO TID #21 caps 10/20/23 Allergies Allergy/AdvReac Type Severity Reaction Status Date / Time adhesive tape Allergy Intermediate Blister Verified 10/20/23 09:14 cefuroxime Allergy Mild rash/ Verified 10/20/23 09:14 itching codeine [CODEINE] Allergy Mild NAUSEA Verified 10/20/23 09:14 clindamycin AdvReac N/V Verified 10/20/23 09:14 Patient History Medical History History of radiation therapy Urinary incontinence Lower urinary tract symptoms Hx of chest pain Coronary artery disease Acute non-ST elevation myocardial infarction (NSTEMI) Headache Chronic low back pain with sciatica Paresthesias in left hand CVA (cerebral vascular accident) Hypertension Hairy cell leukemia Parkinsons disease Surgical History S/P deep brain stimulator placement S/P TURP History of tonsillectomy Social History marital status: number of children: 2 household members: spouse occupational status: previously employed and other Smoking Status: Former smoker Tobacco: How many years used: 5 alcohol intake: never substance use type: does not use caffeine: No Type(s) of exercise: walking frequency: other Smoking Status: Former smoker alcohol intake frequency: a few times a month Substance Use Type: does not use Exam Initial Vital Signs Initial Vital Signs: Vital Signs Blood Pressure 222/102 H 10/26/23 20:28 GENERAL: Alert pleasant 78-year-old male and in no acute distress. HEENT: Head atraumatic,EOMI, pupils reactive, face symmetric, moist mucous membranes CARDIOVASCULAR: Regular rate and rhythm without murmurs, rubs or gallops. RESPIRATORY: Breath sounds equal bilaterally, no wheezes rales or rhonchi. ABDOMEN: Soft, nontender. Normoactive bowel sounds all 4 quadrants. No guarding or rebound. EXTREMITIES: Normal range of motion, no clubbing or edema. Neurovascularly intact NEUROLOGICAL: Alert and oriented x4. No focal deficits mild resting tremor. Sensation in cheeks arms equal. Service Writer strength equal bilaterally SKIN: Warm, dry, no laceration, no petechiae, no rashes or lesions. Course Orders Ordered: ED Orders 10/26/23 20:35 Complete Blood Count AUTO DIFF Stat Comprehensive Metabolic Panel Stat Lipase Stat Troponin & CK Cardiac Panel Stat 10/26/23 20:39 XR chest 1V Stat EKG-12 Lead Stat Vital Signs Vital signs: Vital Signs - 8 hr 10/26/23 20:28 10/26/23 20:29 10/26/23 20:30 Temperature Pulse Rate 76 75 Respiratory Rate 19 Blood Pressure 222/102 H Pulse Oximetry 97 98 Oxygen Delivery Method 10/26/23 20:31 10/26/23 20:31 10/26/23 20:32 Temperature 98.2 F Pulse Rate 76 75 Respiratory Rate 21 17 Blood Pressure 233/105 H 222/102 H Pulse Oximetry 98 98 Oxygen Delivery Method Room Air 10/26/23 20:32 10/26/23 20:32 10/26/23 21:00 Temperature Pulse Rate 74 73 Respiratory Rate 20 19 Blood Pressure 203/95 H Pulse Oximetry 98 97 Oxygen Delivery Method 10/26/23 21:00 10/26/23 21:30 10/26/23 21:30 Temperature Pulse Rate 67 Respiratory Rate 18 Blood Pressure 209/93 H 212/99 H Pulse Oximetry 96 Oxygen Delivery Method 10/26/23 22:04 10/26/23 22:08 10/26/23 22:08 Temperature Pulse Rate 67 67 Respiratory Rate 18 Blood Pressure 219/98 H Pulse Oximetry Oxygen Delivery Method Medical Decision Making Lab Data 10/26/23 20:35 10/26/23 20:35 Labs: Lab Results 10/26/23 Range/Units 20:35 WBC 5.1 (4.5-11.0) X10^3/uL RBC 4.61 (4.5-5.9) X10^6/uL Hgb 14.1 (13.5-17.5) g/dL Hct 40.8 L (41-53) % MCV 88.5 (80-100) fL MCH 30.5 (26-34) PG MCHC 34.5 (30-36) % RDW 12.9 (11.6-14.8) % Plt Count 216 (150-400) X10^3/uL Neut % (Auto) 73.0 (50-75) % Lymph % (Auto) 13.5 L (25-40) % [place] % (Auto) 10.0 (3-14) % Eos % (Auto) 3.1 (2-4) % Baso % (Auto) 0.4 (0-2) % Neut # (Auto) 3700 (8451-7664) /uL Lymph # (Auto) 700 L (6843-9148) /uL [place] # (Auto) 500 (0-900) /uL Eos # (Auto) 200 (0-450) /uL Baso # (Auto) 0 (0-100) /uL Sodium 138 (137-145) mmol/L Potassium 4.2 (3.4-5.1) mmol/L Chloride 100 (98-107) mmol/L Carbon Dioxide 30 (22-32) mmol/L BUN 24 H (9-20) mg/dL Creatinine 0.79 (0.66-1.25) mg/dL Estimated GFR > 60 (>60) mL/min BUN/Creatinine Ratio 30.4 H (6-22) Glucose 127 H (80-110) mg/dL Calcium 10.0 (8.4-10.2) mg/dL Total Bilirubin 0.6 (0.2-1.3) mg/dL AST 76 H (17-59) IU/L ALT 27 (<50) IU/L Alkaline Phosphatase 116 (38-126) U/L Total Creatine Kinase 28 L (55-170) U/L Troponin I < 0.012 (0.01-0.034) ng/mL Total Protein 7.2 (6.3-8.2) g/dL Albumin 4.2 (3.5-5.0) g/dL Globulin 3.0 (1.7-4.1) g/dL Albumin/Globulin Ratio 1.4 (1.0-2.8) Lipase 93 (23-300) U/L Imaging Data Chest x-ray: Radiologist's Impression: PROCEDURE: XR CHEST 1V INDICATIONS: chest pain TECHNIQUE: One view of the chest was acquired. COMPARISON: [facility], CR, XR CHEST 1V, 07/11/2023, 11:43. [facility], CR, XR CHEST 1V, 12/21/2022, 20:48. FINDINGS: Surgical changes and devices: Electronic control device over the left chest with leads extending cephalad above the imaging margin at least into the upper neck.. Lungs and pleura: Lungs are clear. No pleural effusions or pneumothorax. Mediastinum: Mediastinal contours appear normal. Heart size is normal. Bones and chest wall: No suspicious bony lesions. Overlying soft tissues appear unremarkable. IMPRESSION: No acute cardiopulmonary abnormality is seen. Stable positioning of left-sided electronic control device with leads extending above the imaging margin. Dictated by: Ankit Shepherd M.D. on 10/26/2023 at 20:59 Approved by: Ankit Shepherd M.D. on 10/26/2023 at 21:00 ECG Data Interpretation: Brain stimulator interferes with EKG however normal sinus rhythm on monitor without obvious ST changes MDM Narrative Medical decision making narrative: Patient history of Parkinson's and hypertension presenting today with tingling bilaterally face hands and legs. No significant weakness or other focal deficits. Unlikely to be stroke. Patient missed his blood pressure medication just due to an abnormal scheduling day. Blood work has been reviewed overall reassuring without evidence of end-organ damage elevated troponin or elevated creatinine. He has been up to the restroom a couple of times. Blood pressure remains elevated but his symptoms improve. At this time I recommend he go home resume his normal regimen of medication. No need for admission. A feel comfortable with this plan. Discharge Plan Departure Patient Disposition: Home Clinical Impression: Hypertension Instructions: DI for High Blood Pressure Activity Restrictions/Additional Instructions: *You have been diagnosed with high blood pressure *What to do: At this time do not double your blood pressure medication tonight just started again tomorrow as scheduled *Continue to take medications as directed *Follow up with your primary care provider in 2-3 days or call [phone] *Return to ER if you should have increased numbness tingling weakness [or] any new, worsening or concerning symptoms Prescriptions: No Action carbidopa-levodopa 50-200 mg tablet extended release 1 tab PO QID Patient Comments: patient states takes 2 to 5 daily. (DME) Disabled Parking 0 .ROUTE .MEDSUPPLY Qty: 1 0RF Rx Instructions: As directed metoprolol succinate 50 mg tablet extended release 24 hr 50 mg PO BID Qty: 90 1RF ciprofloxacin HCl 250 mg tablet 250 mg PO BID Qty: 6 0RF Rx Instructions: Please start on Jul 11. Take one tablet twice daily one day prior to procedure, take one tablet twice daily day of procedure, take one tablet twice daily day after procedure. metronidazole 250 mg tablet 250 mg PO QID Qty: 40 0RF losartan 50 mg tablet 50 mg PO BID Qty: 180 3RF carbidopa-levodopa 25-100 mg tablet,disintegrating 25 - 100 tab PO QID PRN (Reason: parkinson's symptoms) atorvastatin 40 mg tablet 40 mg PO DAILY isosorbide mononitrate 30 mg tablet extended release 24 hr 30 ea PO DAILY Patient Comments: TAKE ONE TABLET BY MOUTH ONE TIME DAILY acetaminophen [Tylenol] 325 mg Tablet 325 mg PO Q6H PRN (Reason: Pain (Scale Score 1-3)) amlodipine 5 mg tablet 7.5 mg PO DAILY Rx Instructions: increase to 7.5mg daily if blood pressure above 140/90 daily. amoxicillin 500 mg capsule 500 mg PO TID Qty: 21 0RF omeprazole 10 mg capsule,delayed release(DR/EC) 10 mg PO DAILY polyethylene glycol 3350 17 gram/dose powder 17 g PO DAILY sennosides [senna] 8.6 mg tablet 8.6 mg PO DAILY docusate sodium 250 mg capsule 250 mg PO DAILY tamsulosin 0.4 mg capsule 0.4 mg PO DAILY Referrals: Anson Benitez MD [Primary Care Provider] - Stand Alone Forms: Patient Portal/API
[2023-10-26 20:54] LABS: Alanine Aminotransferase 27 IU/L (<50); Albumin 4.2 g/dL (3.5-5.0); Albumin Globulin Ratio 1.4 (1.0-2.8); Alkaline Phosphatase 116 U/L (38-126); Aspartate Aminotransferase 76 IU/L (17-59); BUN Creatinine Ratio 30.4 (6-22); Bilirubin Total 0.6 mg/dL (0.2-1.3); Blood Urea Nitrogen 24 mg/dL (9-20); Carbon Dioxide 30 mmol/L (22-32); Chloride 100 mmol/L (98-107); Creatine Kinase 28 U/L (55-170); Estimated Glomerular Filt Rate > 60 mL/min (>60); Glucose 127 mg/dL (80-110); HEMOLYSIS 20 (0-50); Lipase 93 U/L (23-300); Potassium 4.2 mmol/L (3.4-5.1); Sodium 138 mmol/L (137-145); Total Protein 7.2 g/dL (6.3-8.2)
--- NOTE | 2023-10-26 21:00 | PC.NURSE ---
Addendum entered by Cassandra Ferris R.N. 10/26/23 21:05: Dr. Rudolph aware. Original Note: unable to get a 12 lead EKG due to patient's brain stimulator.
[2023-10-26 21:05] LABS: Troponin I < 0.012 ng/mL (0.01-0.034)
== END 2023-10-26 22:37 | disposition home or self-care (01) ==
PROVIDERS: Emergency Provider Emergency Medicine; PCP Family Medicine
DX: I10 Essential (primary) hypertension (principal); R20.2 Paresthesia of skin; Z87.891 Personal history of nicotine dependence
CPT/HCPCS: 36415; 71045; 80053; 82550; 83690; 84484; 85025; 99284

== ENCOUNTER → 2023-11-05 12:35 | Outpatient (CLI) | payer MEDICARE, OTHER, SELFPAY ==
[2023-06-25 16:11] VITALS: BMI 22.9
[2023-11-05 13:38] LABS: Add Manual Diff / Slide Review NO; Basophils Absolute Auto 0 /uL (0-100); Basophils Percent Auto 0.6 % (0-2); Eosinophils Absolute Auto 100 /uL (0-450); Eosinophils Percent Auto 2.9 % (2-4); Hematocrit 38.4 % (41-53); Hemoglobin 13.2 g/dL (13.5-17.5); Lymphocytes Absolute Auto 700 /uL (1100-4500); Lymphocytes Percent Auto 14.8 % (25-40); Mean Corpuscular HGB Conc 34.4 % (30-36); Mean Corpuscular Hemoglobin 30.9 PG (26-34); Mean Corpuscular Volume 89.8 fL (80-100); Monocytes Absolute Auto 500 /uL (0-900); Neutrophils Absolute Auto 3400 /uL (1500-7000); Neutrophils Percent Auto 70.7 % (50-75); Platelet Count 179 X10^3/uL (150-400); Red Blood Cell Count 4.28 X10^6/uL (4.5-5.9); Red Cell Distribution Width 13.4 % (11.6-14.8); White Blood Cell Count 4.9 X10^3/uL (4.5-11.0)
== END ==
PROVIDERS: PCP Family Medicine; Referring Provider Internal Medicine Hematology & Oncology; Visit Provider Internal Medicine Hematology & Oncology
DX: C91.41 Hairy cell leukemia, in remission (principal)
CPT/HCPCS: 36415; 85025

== ENCOUNTER → 2024-01-15 13:27 | Outpatient (CLI) | payer MEDICARE, OTHER, SELFPAY ==
[2023-06-25 16:11] VITALS: BMI 22.9
== END ==
PROVIDERS: PCP Family Medicine; Visit Provider Urology
DX: R39.9 Unspecified symptoms and signs involving the genitourinary system (principal)
CPT/HCPCS: 87086

== ENCOUNTER → 2024-01-15 13:32 | Outpatient (CLI) | payer MEDICARE, OTHER, SELFPAY ==
[2023-06-25 16:11] VITALS: BMI 22.9
--- NOTE | 2024-01-15 13:35 | DI.RAD.S_ITS ---
PROCEDURE: XR KUB INDICATIONS: Follow-up constipation TECHNIQUE: One view of the abdomen acquired. COMPARISON: [facility], CR, XR CHEST 1V, 10/26/2023, 20:48. FINDINGS: Surgical changes and devices: None. Bowel: Bowel gas pattern is normal. Soft tissues: No suspicious abdominal calcifications. Visualized solid organ contours appear normal in size. Above average colonic stool burden, notably in the transverse colon. Bones: No suspicious bony lesions. Multilevel degenerative changes of the spine. Degenerative changes of the bilateral hips. IMPRESSION: 1. No acute abnormality. 2. Above average colonic stool burden, notably in the transverse colon which may correlate with constipation. Dictated by: Jovi Huerta M.D. on 01/15/2024 at 18:38 Approved by: Jovi Huerta M.D. on 01/15/2024 at 18:43
== END ==
PROVIDERS: PCP Family Medicine; Referring Provider Urology; Visit Provider Urology
DX: K59.00 Constipation, unspecified (principal); R39.9 Unspecified symptoms and signs involving the genitourinary system
CPT/HCPCS: 74018; 87086

== ENCOUNTER → 2024-01-22 13:59 | Outpatient (CLI) | payer MEDICARE, OTHER, SELFPAY ==
[2023-06-25 16:11] VITALS: BMI 22.9
== END ==
PROVIDERS: PCP Family Medicine; Visit Provider Urology
DX: N42.89 Other specified disorders of prostate (principal); R39.9 Unspecified symptoms and signs involving the genitourinary system; Z85.46 Personal history of malignant neoplasm of prostate
CPT/HCPCS: 52000; 81002; 87086

== ENCOUNTER → 2024-02-06 14:35 | Outpatient (CLI) | payer MEDICARE, OTHER, SELFPAY ==
[2023-06-25 16:11] VITALS: BMI 22.9
== END ==
PROVIDERS: PCP Family Medicine; Visit Provider Urology
DX: N21.0 Calculus in bladder (principal); N42.89 Other specified disorders of prostate; R31.9 Hematuria, unspecified; K59.00 Constipation, unspecified; R39.9 Unspecified symptoms and signs involving the genitourinary system; Z92.3 Personal history of irradiation; Z90.79 Acquired absence of other genital organ(s)
CPT/HCPCS: 81002; 87086; 99214

== ENCOUNTER 2024-02-11 06:26 | Day surgery (SDC) | payer MEDICARE, OTHER, SELFPAY ==
[2023-06-25 16:11] VITALS: BMI 22.9
[2024-02-05 11:07] VITALS: BMI 21.9
[2024-02-11] VITALS (12 sets, daily range): BP systolic 90–148; BP diastolic 23–77; PULSE 53–68; RESP 11–94; TEMP 36.2–36.6; O2SAT 92–98; BMI 21.9
[2024-02-11] MEDS: LACTATED RINGERS 1,000 ML 21 ML IV (07:09)
--- NOTE | 2024-02-11 07:39 | PM.PREOP ---
Pre-operative Note COVID-19 COVID-19 status: Not tested Interval Note History & Physical reviewed/Exam performed by Physician: Yes Changes to H&P: No
[2024-02-11] MEDS: CIPROFLOXACIN 400 MG/200 ML PIGGYBACK 200 MG IV (07:55)
--- NOTE | 2024-02-11 08:12 | SUR.OPER ---
Lithotomy on padded OR bed, head on pillow, arms secured on padded arm boards at <90 degrees abduction. Legs secured in padded yellow fins stirrups.
--- NOTE | 2024-02-11 09:23 | P.OP_ITS ---
Procedure & Clinicians Procedure: Transurethral resection of prostate calcifications with cystolitholapaxy and removal of prostate calcifications (extensive) Same procedure as scheduled: Yes Indications: This 78-year-old male presented with complaints of incontinence, gross hematuria, irritative voiding symptoms. Workup has revealed extensive prostate calcifications he presents this time for removal/resection of the prostate calcifications and some bladder calcifications that are likely source from the prostate. Surgeon: Bryan Hall Click Yes if Unassisted: Yes Anesthesia Type: General Operative Notes Findings: Findings: Urethral meatus is normal urethra is normal to the prostatic fossa which is essentially filled with calcifications. These are adherent to and imbedded in the prostate tissue. They are very extensive. The were initially knocked off the surface and then required resection of prostate tissue to clear as many as possible at the end of the procedure there were a few small imbedded stones that would have been difficult to remove and thus were left in place. The ureteral orifices in normal position with clear efflux. Of note the prostatic fossa was resected. Within the bladder there were no other abnormalities noted. There was normal mucosa no evidence of tumor, fistula there were a few small stones within the bladder. They ranged up to a cm in size and initially were for to 5 in number. At the end of the procedure again there were a few small calcification still imbedded in the prostate tissue. Prostatic fossa was widely patent and a 20 [place] [address] catheter was left in place with 10 cc in the balloon. Closure Type: not applicable Specimen(s): other (Prostate calcification) Prosthetic devices, grafts, tissues, transplants, or devices: [address] [place] [address] Elaine catheter with 10 cc in the balloon Estimated Blood Loss (mL): 25 Blood products transfused: none Procedure in detail: Procedure in detail: After informed consent was obtained, the patient was identified brought to the operating room placed in a supine position on the table where anesthesia was induced and maintained. Ensuring an adequate level of anesthesia the patient was transitioned to the lithotomy position where he was prepped, draped, prepared for Transurethral procedure. After prepping, dr aping, ensuring an adequate level of anesthesia, time-out and administration of antibiotics 22 [place] cystoscope was passed through the urethra and into the prostatic fossa. To allow passage the superficial adherent stones were dislodged with the scope and pushed into the bladder. Once in the bladder the mechanical lithotrite was inserted and the stones crushed. The stones were then evacuated. Back in the prostatic fossa all stones that could be dislodged were. They were washed into the bladder where some required the mechanical lithotrite to crush them again these were washed out. It became apparent that resection of prostate tissue would be required to minimize the remaining stone burden. Therefore the cystoscope was exchanged for resectoscope. And using the loop the prostate tissue overlying and invested with stones was resected and the loop was used to dislodge stones till all but some very tiny stones were left. Fernandes bleeding were controlled with the electrocautery. At the end of the procedure the bladder was cleared of all fragments and hemostasis was good. At this point the scope was removed and the 20 [place] catheter passed easily into the bladder where the balloon was filled with 10 cc of sterile water. At this point the patient was awakened having tolerated the procedure well and transferred to the postanesthesia care unit with a Elaine catheter to gravity drainage. He will be discharged home with a Elaine catheter. The patient tolerated the procedure well and there were no complications. Complications: none Post-operative Condition: stable Plan for aftercare: Discharged to home with Elaine catheter to follow up my office morning for voiding trial.
[2024-02-11] MEDS: HYDROMORPHONE 1 MG INJ IV ×2 (09:40→09:48)
[2024-02-11] MEDS: OXYCODONE IR 5 MG TABLET PO (09:51)
[2024-02-11] MEDS: PHENAZOPYRIDINE 100 MG TABLET 200 MG PO (09:52)
[2024-02-11] MEDS: OXYBUTYNIN 5 MG TABLET PO (09:52)
[2024-02-18 19:14] LABS: Ca oxalate dihydrate 50 % (.); Ca oxalate monohydr 30 % (.); Hydroxyapatite 20 % (.); Size 10x7 mm (.)
== END 2024-02-11 11:11 | disposition home or self-care (01) ==
PROVIDERS: PCP Family Medicine; Referring Provider Urology; Visit Provider Urology
PROC: 0TCB8ZZ Extirpation of Matter from Bladder, Via Natural or Artificial Opening Endoscopic (ICD-10-PCS; CPT 52318; principal; 2024-02-11 07:45)
DX: N42.0 Calculus of prostate (principal); N21.0 Calculus in bladder; R32 Unspecified urinary incontinence; R39.9 Unspecified symptoms and signs involving the genitourinary system; Z92.3 Personal history of irradiation
CPT/HCPCS: 52318; 52275; 82365; J0744; J1100; J1170; J2405; J3010; J3490

== ENCOUNTER → 2024-02-13 15:38 | Outpatient (CLI) | payer MEDICARE, OTHER, SELFPAY ==
[2024-02-11 15:49] VITALS: BMI 22.9
== END ==
PROVIDERS: PCP Family Medicine; Visit Provider Urology
DX: R32 Unspecified urinary incontinence (principal); R39.9 Unspecified symptoms and signs involving the genitourinary system
CPT/HCPCS: 51798; 81002; 87086

== ENCOUNTER → 2024-02-20 11:39 | Outpatient (CLI) | payer MEDICARE, OTHER, SELFPAY ==
[2024-02-11 15:49] VITALS: BMI 22.9
== END ==
PROVIDERS: PCP Family Medicine; Visit Provider Urology
DX: R39.9 Unspecified symptoms and signs involving the genitourinary system (principal)
CPT/HCPCS: 51798; 81002; 87086

== ENCOUNTER → 2024-02-28 13:31 | Outpatient (CLI) | payer MEDICARE, OTHER, SELFPAY ==
[2024-02-11 15:49] VITALS: BMI 22.9
== END ==
PROVIDERS: PCP Family Medicine; Visit Provider Urology
DX: C61 Malignant neoplasm of prostate (principal); R31.9 Hematuria, unspecified; N21.0 Calculus in bladder; N42.89 Other specified disorders of prostate; N39.41 Urge incontinence; R39.9 Unspecified symptoms and signs involving the genitourinary system; Z92.3 Personal history of irradiation; Z90.79 Acquired absence of other genital organ(s)
CPT/HCPCS: 51798; 81002; 87077; 87086

== ENCOUNTER → 2024-03-20 13:20 | Outpatient (CLI) | payer MEDICARE, OTHER, SELFPAY ==
[2024-02-11 15:49] VITALS: BMI 22.9
== END ==
PROVIDERS: PCP Family Medicine; Visit Provider Urology
DX: R32 Unspecified urinary incontinence (principal); R39.9 Unspecified symptoms and signs involving the genitourinary system
CPT/HCPCS: 87086

== ENCOUNTER 2024-03-20 13:34 | Emergency (ER) | payer MEDICARE, OTHER, SELFPAY ==
[2024-02-11 15:49] VITALS: BMI 22.9
[2024-03-20 13:38] VITALS: BP 112/58; PULSE 61; RESP 16; TEMP 36.5; O2SAT 96; BMI 22.4
[2024-03-20 13:44] VITALS: BP 112/58; PULSE 63; O2SAT 96
--- NOTE | 2024-03-20 13:48 | DI.CT.S_ITS ---
PROCEDURE: CT HEAD/BRAIN WO CON INDICATIONS: Headache slurred speech or upper extremity weakness TECHNIQUE: Noncontrast 4.5 mm thick angled axial sections acquired from the foramen magnum to the vertex, with coronal and sagittal reformats. For radiation dose reduction, the following was used: automated exposure control, adjustment of mA and/or kV according to patient size. COMPARISON: [facility], CT, CT HEAD/BRAIN WO CON, 10/26/2022, 21:02. [facility], CT, CT HEAD/BRAIN WO CON, 02/06/2022, 23:39. FINDINGS: Image quality: Diagnostic. CSF spaces: Basal cisterns are patent. No extra-axial fluid collections. The ventricles are symmetric in size and shape. Brain: No intracranial bleeds or masses. Stable positioning of bilateral thalamic neural stimulators. There is cerebral volume loss for age, with resultant ventricular and sulcal prominence. There are periventricular and deep white matter chronic small vessel ischemic changes. There is intracranial internal carotid artery atherosclerosis. Skull and face: Calvarium and visualized facial bones appear intact, without suspicious lesions. Sinuses: Visualized sinuses and mastoids are clear. IMPRESSION: No acute intracranial pathology. Bilateral thalamic neurostimulator devices in stable normal position over time. Dictated by: Ankit Shepherd M.D. on 03/20/2024 at 15:25 Approved by: Ankit Shepherd M.D. on 03/20/2024 at 15:26
--- NOTE | 2024-03-20 13:48 | DI.CT.S_ITS ---
PROCEDURE: CT ANGIO HEAD AND NECK INDICATIONS: Headache, slurred speech and upper extremity weakness TECHNIQUE: After the administration of intravenous contrast, 1 mm thick sections acquired from the aortic arch through the [place] of [place]. 3-dimensional ygbjhnz-urcjiieor-zyxtxiyvsa (MIP) and/or volume rendering reformats were acquired of the central intracranial vasculature and neck separately. For radiation dose reduction, the following was used: automated exposure control, adjustment of mA and/or kV according to patient size. COMPARISON: [facility], CT, CT HEAD/BRAIN WO CON, 03/20/2024, 14:48. [facility], CT, CT ANGIO HEAD AND NECK, 06/05/2020, 18:24. [facility], CT, CT ANGIO HEAD AND NECK, 05/24/2019, 16:05. FINDINGS: Image quality: Diagnostic. BRAIN: CSF spaces: Ventricles are normal in size and shape. Basal cisterns are patent. No extra-axial fluid collections. Brain: No significant abnormality of the brain can be seen. Note is again made of bilateral thalamic neurostimulator leads remaining in normal stable position. Skull and face: Calvarium and facial bones appear intact, without suspicious lesions. Orbits appear normal. Sinuses: Sinuses and mastoids are clear. HEAD CT ANGIOGRAPHY: Anterior circulation: Intracranial internal carotid arteries are normal in size and flow. The flow within the paired anterior cerebral arteries is normal and symmetric. The flow within the middle cerebral arteries is normal and symmetric. The anterior communicating artery is seen. No aneurysms are seen. Posterior circulation: Visualized portions of the vertebral arteries demonstrate normal caliber, and join to form a normal appearing basilar artery. Flow within the posterior cerebral arteries is normal and symmetric. No aneurysms are seen. NECK CT ANGIOGRAPHY: Carotid system: The great vessels demonstrate a conventional anatomy as they arise from the aortic arch. The origins of the common carotid arteries appear patent. The common carotid arteries demonstrate normal caliber and courses. The bifurcation regions are both widely patent. The internal carotid arteries demonstrate normal calibers and courses. Posterior circulation: The origins of the vertebral arteries both appear widely patent. The more superior extracranial portions of both vertebral arteries also demonstrate normal courses and calibers. They join to form a normal appearing basilar artery. Soft tissues: Visualized neck soft tissues demonstrate no suspicious abnormalities. Bones: No suspicious bony lesions. Visualized cervical spine appears normally aligned. IMPRESSION: No significant intracranial arterial abnormality is seen. No significant abnormality is seen within the arteries of the neck. Stable appearance of bilateral thalamic neurostimulator leads. Any quantitative measurements of stenosis were performed using NASCET criteria. Dictated by: Ankit Shepherd M.D. on 03/20/2024 at 15:27 Approved by: Ankit Shepherd M.D. on 03/20/2024 at 15:29
[2024-03-20 14:00] VITALS: BP 127/60; PULSE 65; O2SAT 97
[2024-03-20 14:04] LABS: Add Manual Diff / Slide Review NO; Basophils Absolute Auto 0 /uL (0-100); Basophils Percent Auto 0.5 % (0-2); Eosinophils Absolute Auto 200 /uL (0-450); Eosinophils Percent Auto 3.4 % (2-4); Hematocrit 36.5 % (41-53); Hemoglobin 12.6 g/dL (13.5-17.5); Lymphocytes Absolute Auto 600 /uL (1100-4500); Lymphocytes Percent Auto 13.3 % (25-40); Mean Corpuscular HGB Conc 34.5 % (30-36); Mean Corpuscular Hemoglobin 30.8 PG (26-34); Mean Corpuscular Volume 89.4 fL (80-100); Monocytes Absolute Auto 300 /uL (0-900); Neutrophils Absolute Auto 3700 /uL (1500-7000); Neutrophils Percent Auto 75.8 % (50-75); Platelet Count 145 X10^3/uL (150-400); Red Blood Cell Count 4.08 X10^6/uL (4.5-5.9); Red Cell Distribution Width 12.9 % (11.6-14.8); White Blood Cell Count 4.9 X10^3/uL (4.5-11.0)
[2024-03-20 14:16] LABS: Alanine Aminotransferase 10 IU/L (<50); Albumin 3.7 g/dL (3.5-5.0); Albumin Globulin Ratio 1.4 (1.0-2.8); Alkaline Phosphatase 81 U/L (38-126); Aspartate Aminotransferase 28 IU/L (17-59); BUN Creatinine Ratio 22.5 (6-22); Bilirubin Total 0.8 mg/dL (0.2-1.3); Blood Urea Nitrogen 27 mg/dL (9-20); Calcium 9.2 mg/dL (8.4-10.2); Carbon Dioxide 31 mmol/L (22-32); Chloride 105 mmol/L (98-107); Creatine Kinase 39 U/L (55-170); Estimated Glomerular Filt Rate > 60 mL/min (>60); Globulin 2.6 g/dL (1.7-4.1); Glucose 134 mg/dL (80-110); HEMOLYSIS < 15 (0-50); Lipase 57 U/L (23-300); Potassium 4.4 mmol/L (3.4-5.1); Sodium 139 mmol/L (137-145); Total Protein 6.3 g/dL (6.3-8.2)
[2024-03-20 14:28] LABS: Troponin I < 0.012 ng/mL (0.01-0.034)
--- NOTE | 2024-03-20 15:28 | ED_ITS ---
HPI - General Adult General Chief complaint: Weakness Stated complaint: sent by URO, low BP, tingling on face Time Seen by Provider: 03/20/24 13:43 Source: patient and family Mode of arrival: Wheelchair History of Present Illness HPI narrative: Patient is a 78-year-old male history of Parkinson's disease. Was at the urology office today and had a episode of low blood pressure and tingling in his face. At the time of my evaluation his symptoms have now completely resolved. He did not pass out during the event. He has not had any change in urinary status or change in bowel habits. No chest pain or palpitations. He has passed out 1 time in the past but that was years ago. His blood pressure was taken at the urology office and was found to be a systolic blood pressure less than 100. Related Data Home Medications Medication Instructions Recorded Confirmed carbidopa ER 50 mg-levodopa 200 mg 1 tab PO QID 04/08/18 03/20/24 tablet,extended release acetaminophen 325 mg tablet 325 mg PO Q6H PRN Pain (Scale 06/26/18 03/20/24 (Tylenol) Score 1-3) carbidopa 25 mg-levodopa 100 mg 25 - 100 tab PO QID PRN 07/14/20 03/20/24 disintegrating tablet parkinson's symptoms amlodipine 5 mg tablet 7.5 mg PO DAILY 10/27/22 03/20/24 atorvastatin 40 mg tablet 40 mg PO DAILY 02/15/23 03/20/24 isosorbide mononitrate 30 mg 30 ea PO DAILY 02/15/23 03/20/24 tablet,extended release 24 hr polyethylene glycol 3350 17 17 g PO DAILY 06/25/23 03/20/24 gram/dose oral powder sennosides 8.6 mg tablet (senna) 8.6 mg PO DAILY 06/25/23 03/20/24 tamsulosin 0.4 mg capsule 0.4 mg PO DAILY 06/25/23 03/20/24 Previous Rx's Medication Instructions Recorded Disabled Parking #1 ea 03/05/19 losartan 50 mg tablet 50 mg PO BID #180 tabs 02/02/21 metoprolol succinate 50 mg 50 mg PO BID #90 tabs 02/16/22 tablet,extended release 24 hr Disabled Parking Permit #1 ea 02/14/24 levofloxacin 500 mg tablet 500 mg PO DAILY #14 tabs 03/10/24 Allergies Allergy/AdvReac Type Severity Reaction Status Date / Time adhesive tape Allergy Intermediate Blister Verified 03/20/24 13:50 cefuroxime Allergy Mild rash/ Verified 03/20/24 13:50 itching codeine [CODEINE] Allergy Mild NAUSEA Verified 03/20/24 13:50 clindamycin AdvReac N/V Verified 03/20/24 13:50 Review of Systems Review of Systems Narrative: See HPI Patient History Medical History Bladder calculus Calcification of prostate History of radiation therapy Urinary incontinence Lower urinary tract symptoms Hx of chest pain Coronary artery disease Acute non-ST elevation myocardial infarction (NSTEMI) Headache Chronic low back pain with sciatica Paresthesias in left hand CVA (cerebral vascular accident) Hypertension Hairy cell leukemia Parkinsons disease Surgical History S/P deep brain stimulator placement (09/16/14) S/P TURP History of tonsillectomy Social History marital status: number of children: 2 household members: spouse occupational status: previously employed and other Smoking Status: Former smoker Tobacco: How many years used: 5 alcohol intake: never substance use type: does not use caffeine: No Type(s) of exercise: walking frequency: other Smoking Status: Former smoker alcohol intake frequency: a few times a month Substance Use Type: does not use Exam Initial Vital Signs Initial Vital Signs: Vital Signs Temperature 97.7 F 03/20/24 13:38 Pulse Rate 61 03/20/24 13:38 Respiratory Rate 16 03/20/24 13:38 Blood Pressure 112/58 L 03/20/24 13:38 Pulse Oximetry 96 03/20/24 13:38 Oxygen Delivery Method Room Air 03/20/24 13:38 Const General: cooperative, comfortable and No ill appearing HENMT Head: normal to inspection and normocephalic Resp Effort & Inspection: normal respiratory effort Auscultation: clear to auscultation bilaterally Cardio Rate: regular rate Rhythm: regular rhythm Skin General: no rashes or lesions noted Neuro General: patient alert, patient awake, patient oriented x3 and moves all extremities Speech: speech normal Extrem General: capillary refill normal Course Orders Ordered: ED Orders 03/20/24 13:48 CT angio head and neck Stat CT head/brain wo con Stat 03/20/24 13:55 Complete Blood Count AUTO DIFF Stat Comprehensive Metabolic Panel Stat Lipase Stat Troponin & CK Cardiac Panel Stat Vital Signs Vital signs: Vital Signs - 8 hr 03/20/24 13:38 03/20/24 13:44 03/20/24 13:44 Temperature 97.7 F Pulse Rate 61 63 Respiratory Rate 16 Blood Pressure 112/58 L 112/58 L Pulse Oximetry 96 96 Oxygen Delivery Method Room Air 03/20/24 14:00 03/20/24 14:00 Temperature Pulse Rate 65 Respiratory Rate Blood Pressure 127/60 Pulse Oximetry 97 Oxygen Delivery Method Room Air Medical Decision Making Lab Data Lab results reviewed: Yes I reviewed the patient's lab results. 03/20/24 13:55 03/20/24 13:55 Labs: Lab Results 03/20/24 Range/Units 13:55 WBC 4.9 (4.5-11.0) X10^3/uL RBC 4.08 L (4.5-5.9) X10^6/uL Hgb 12.6 L (13.5-17.5) g/dL Hct 36.5 L (41-53) % MCV 89.4 (80-100) fL MCH 30.8 (26-34) PG MCHC 34.5 (30-36) % RDW 12.9 (11.6-14.8) % Plt Count 145 L (150-400) X10^3/uL Neut % (Auto) 75.8 H (50-75) % Lymph % (Auto) 13.3 L (25-40) % [place] % (Auto) 7.0 (3-14) % Eos % (Auto) 3.4 (2-4) % Baso % (Auto) 0.5 (0-2) % Neut # (Auto) 3700 (0318-1415) /uL Lymph # (Auto) 600 L (4546-9326) /uL [place] # (Auto) 300 (0-900) /uL Eos # (Auto) 200 (0-450) /uL Baso # (Auto) 0 (0-100) /uL Sodium 139 (137-145) mmol/L Potassium 4.4 (3.4-5.1) mmol/L Chloride 105 (98-107) mmol/L Carbon Dioxide 31 (22-32) mmol/L BUN 27 H (9-20) mg/dL Creatinine 1.20 (0.66-1.25) mg/dL Estimated GFR > 60 (>60) mL/min BUN/Creatinine Ratio 22.5 H (6-22) Glucose 134 H (80-110) mg/dL Calcium 9.2 (8.4-10.2) mg/dL Total Bilirubin 0.8 (0.2-1.3) mg/dL AST 28 (17-59) IU/L ALT 10 (<50) IU/L Alkaline Phosphatase 81 (38-126) U/L Total Creatine Kinase 39 L (55-170) U/L Troponin I < 0.012 (0.01-0.034) ng/mL Total Protein 6.3 (6.3-8.2) g/dL Albumin 3.7 (3.5-5.0) g/dL Globulin 2.6 (1.7-4.1) g/dL Albumin/Globulin Ratio 1.4 (1.0-2.8) Lipase 57 (23-300) U/L Imaging Data CTA - brain/neck: Radiologist's Impression: PROCEDURE: CT ANGIO HEAD AND NECK INDICATIONS: Headache, slurred speech and upper extremity weakness TECHNIQUE: After the administration of intravenous contrast, 1 mm thick sections acquired from the aortic arch through the [place] of [place]. 3-dimensional rcftkvv-ekfgwugdc-sxtzlrpehl (MIP) and/or volume rendering reformats were acquired of the central intracranial vasculature and neck separately. For radiation dose reduction, the following was used: automated exposure control, adjustment of mA and/or kV according to patient size. COMPARISON: [facility], CT, CT HEAD/BRAIN WO CON, 03/20/2024, 14:48. [facility], CT, CT ANGIO HEAD AND NECK, 06/05/2020, 18:24. [facility], CT, CT ANGIO HEAD AND NECK, 05/24/2019, 16:05. FINDINGS: Image quality: Diagnostic. BRAIN: CSF spaces: Ventricles are normal in size and shape. Basal cisterns are patent. No extra-axial fluid collections. Brain: No significant abnormality of the brain can be seen. Note is again made of bilateral thalamic neurostimulator leads remaining in normal stable position. Skull and face: Calvarium and facial bones appear intact, without suspicious lesions. Orbits appear normal. Sinuses: Sinuses and mastoids are clear. HEAD CT ANGIOGRAPHY: Anterior circulation: Intracranial internal carotid arteries are normal in size and flow. The flow within the paired anterior cerebral arteries is normal and symmetric. The flow within the middle cerebral arteries is normal and symmetric. The anterior communicating artery is seen. No aneurysms are seen. Posterior circulation: Visualized portions of the vertebral arteries demonstrate normal caliber, and join to form a normal appearing basilar artery. Flow within the posterior cerebral arteries is normal and symmetric. No aneurysms are seen. NECK CT ANGIOGRAPHY: Carotid system: The great vessels demonstrate a conventional anatomy as they arise from the aortic arch. The origins of the common carotid arteries appear patent. The common carotid arteries demonstrate normal caliber and courses. The bifurcation regions are both widely patent. The internal carotid arteries demonstrate normal calibers and courses. Posterior circulation: The origins of the vertebral arteries both appear widely patent. The more superior extracranial portions of both vertebral arteries also demonstrate normal courses and calibers. They join to form a normal appearing basilar artery. Soft tissues: Visualized neck soft tissues demonstrate no suspicious abnormalities. Bones: No suspicious bony lesions. Visualized cervical spine appears normally aligned. IMPRESSION: No significant intracranial arterial abnormality is seen. No significant abnormality is seen within the arteries of the neck. Stable appearance of bilateral thalamic neurostimulator leads. CT scan - head: Radiologist's Impression: PROCEDURE: CT HEAD/BRAIN WO CON INDICATIONS: Headache slurred speech or upper extremity weakness TECHNIQUE: Noncontrast 4.5 mm thick angled axial sections acquired from the foramen magnum to the vertex, with coronal and sagittal reformats. For radiation dose reduction, the following was used: automated exposure control, adjustment of mA and/or kV according to patient size. COMPARISON: [facility], CT, CT HEAD/BRAIN WO CON, 10/26/2022, 21:02. [facility], CT, CT HEAD/BRAIN WO CON, 02/06/2022, 23:39. FINDINGS: Image quality: Diagnostic. CSF spaces: Basal cisterns are patent. No extra-axial fluid collections. The ventricles are symmetric in size and shape. Brain: No intracranial bleeds or masses. Stable positioning of bilateral thalamic neural stimulators. There is cerebral volume loss for age, with resultant ventricular and sulcal prominence. There are periventricular and deep white matter chronic small vessel ischemic changes. There is intracranial internal carotid artery atherosclerosis. Skull and face: Calvarium and visualized facial bones appear intact, without suspicious lesions. Sinuses: Visualized sinuses and mastoids are clear. IMPRESSION: No acute intracranial pathology. Bilateral thalamic neurostimulator devices in stable normal position over time. [facility] Narrative Medical decision making narrative: Patient's symptoms now have completely resolved. His blood pressure has a systolic in the 120s. Sinus rhythm on the monitor. Head CT and CTA showed no signs of acute pathology. His labs unremarkable. Unsure the exact etiology but the patient now seems to be completely resolved. No indication for admission to the hospital. It low suspicion that this was CVA/TIA. Will discharge home he was given return precautions. Patient and expressed understanding and agreement with plan. Discharge Plan Departure Patient Disposition: Home Clinical Impression: Episodic lightheadedness, Parkinson's disease Instructions: DI for Dizziness-Nonvertigo Activity Restrictions/Additional Instructions: Your blood pressure has improved. The CT scans of your head show no signs of stroke. Recommend that you continue to take all of your medications as directed. Contact your primary doctor for follow-up. Return to the emergency department for new or worsening symptoms. Prescriptions: No Action carbidopa-levodopa 50-200 mg tablet extended release 1 tab PO QID Patient Comments: patient states takes 2 to 5 daily. (DME) Disabled Parking 0 .ROUTE .MEDSUPPLY Qty: 1 0RF Rx Instructions: As directed metoprolol succinate 50 mg tablet extended release 24 hr 50 mg PO BID Qty: 90 1RF (DME) Disabled Parking Permit See Rx Instructions .ROUTE .MEDSUPPLY Qty: 1 0RF Rx Instructions: I find this patient to be medically disabled and qualified for Disabled Parking as indicated and signed on the accompanying Disabled Parking Application for Individuals. losartan 50 mg tablet 50 mg PO BID Qty: 180 3RF carbidopa-levodopa 25-100 mg tablet,disintegrating 25 - 100 tab PO QID PRN (Reason: parkinson's symptoms) atorvastatin 40 mg tablet 40 mg PO DAILY isosorbide mononitrate 30 mg tablet extended release 24 hr 30 ea PO DAILY Patient Comments: TAKE ONE TABLET BY MOUTH ONE TIME DAILY acetaminophen [Tylenol] 325 mg Tablet 325 mg PO Q6H PRN (Reason: Pain (Scale Score 1-3)) amlodipine 5 mg tablet 7.5 mg PO DAILY Rx Instructions: increase to 7.5mg daily if blood pressure above 140/90 daily. polyethylene glycol 3350 17 gram/dose powder 17 g PO DAILY sennosides [senna] 8.6 mg tablet 8.6 mg PO DAILY tamsulosin 0.4 mg capsule 0.4 mg PO DAILY levofloxacin 500 mg tablet 500 mg PO DAILY Qty: 14 0RF Referrals: Anson Benitez MD [Primary Care Provider] - Stand Alone Forms: Patient Portal/API
== END 2024-03-20 16:00 | disposition home or self-care (01) ==
PROVIDERS: Emergency Provider Emergency Medicine; PCP Family Medicine
DX: R42 Dizziness and giddiness (principal); R20.2 Paresthesia of skin; G20.A1 Parkinson's disease without dyskinesia, without mention of fluctuations
CPT/HCPCS: 36415; 70450; 70496; 70498; 80053; 82550; 83690; 84484; 85025; 87086; 99283; 99284; Q9967

== ENCOUNTER → 2024-05-07 13:19 | Outpatient (CLI) | payer MEDICARE, OTHER, SELFPAY ==
[2024-02-11 15:49] VITALS: BMI 22.9
[2024-05-07 15:28] LABS: Alanine Aminotransferase 10 IU/L (<50); Albumin Globulin Ratio 1.5 (1.0-2.8); Alkaline Phosphatase 86 U/L (38-126); Aspartate Aminotransferase 32 IU/L (17-59); BUN Creatinine Ratio 24.7 (6-22); Bilirubin Total 1.1 mg/dL (0.2-1.3); Blood Urea Nitrogen 23 mg/dL (9-20); Calcium 8.7 mg/dL (8.4-10.2); Carbon Dioxide 29 mmol/L (22-32); Chloride 105 mmol/L (98-107); Estimated Glomerular Filt Rate > 60 mL/min (>60); Globulin 2.6 g/dL (1.7-4.1); Glucose 112 mg/dL (80-110); HEMOLYSIS < 15 (0-50); Potassium 3.7 mmol/L (3.4-5.1); Sodium 139 mmol/L (137-145); Total Protein 6.6 g/dL (6.3-8.2)
[2024-05-07 15:57] LABS: Prostate Specific Antigen Scrn 0.564 ng/mL (0.1-4.0)
[2024-05-07 15:58] LABS: TSH w/ Reflex to FT4 0.65 uIU/mL (0.47-4.68)
[2024-05-09 03:36] LABS: Apolipoprotein B 69 mg/dL (<90)
== END ==
LOC: LAB 13:21
PROVIDERS: PCP Family Medicine; Referring Provider Family Medicine; Visit Provider Family Medicine
DX: Z12.5 Encounter for screening for malignant neoplasm of prostate (principal); K59.00 Constipation, unspecified; I10 Essential (primary) hypertension; G20.C Parkinsonism, unspecified; C91.40 Hairy cell leukemia not having achieved remission; Z90.79 Acquired absence of other genital organ(s)
CPT/HCPCS: 36415; 80053; 82172; 84443; G0103

== ENCOUNTER → 2024-05-08 10:32 | Outpatient (CLI) | payer MEDICARE, OTHER, SELFPAY ==
[2024-02-11 15:49] VITALS: BMI 22.9
[2024-05-08 13:17] LABS: Add Manual Diff / Slide Review NO; Basophils Absolute Auto 0 /uL (0-100); Basophils Percent Auto 0.6 % (0-2); Eosinophils Absolute Auto 200 /uL (0-450); Eosinophils Percent Auto 4.4 % (2-4); Hematocrit 38.6 % (41-53); Hemoglobin 13.5 g/dL (13.5-17.5); Lymphocytes Absolute Auto 800 /uL (1100-4500); Lymphocytes Percent Auto 15.8 % (25-40); Mean Corpuscular HGB Conc 35.1 % (30-36); Mean Corpuscular Hemoglobin 30.8 PG (26-34); Mean Corpuscular Volume 87.7 fL (80-100); Monocytes Absolute Auto 500 /uL (0-900); Monocytes Percent Auto 9.7 % (3-14); Neutrophils Absolute Auto 3600 /uL (1500-7000); Neutrophils Percent Auto 69.5 % (50-75); Platelet Count 155 X10^3/uL (150-400); Red Cell Distribution Width 13.2 % (11.6-14.8); White Blood Cell Count 5.1 X10^3/uL (4.5-11.0)
[2024-05-08 13:38] LABS: Alanine Aminotransferase 8 IU/L (<50); Albumin 3.8 g/dL (3.5-5.0); Albumin Globulin Ratio 1.7 (1.0-2.8); Alkaline Phosphatase 90 U/L (38-126); Aspartate Aminotransferase 29 IU/L (17-59); BUN Creatinine Ratio 25.3 (6-22); Blood Urea Nitrogen 23 mg/dL (9-20); Calcium 8.8 mg/dL (8.4-10.2); Carbon Dioxide 30 mmol/L (22-32); Chloride 104 mmol/L (98-107); Estimated Glomerular Filt Rate > 60 mL/min (>60); Globulin 2.3 g/dL (1.7-4.1); Glucose 92 mg/dL (80-110); HEMOLYSIS < 15 (0-50); Potassium 4.2 mmol/L (3.4-5.1); Sodium 139 mmol/L (137-145); Total Protein 6.1 g/dL (6.3-8.2)
[2024-05-08 13:41] LABS: Cholesterol 115 mg/dL (140-199); HDL Cholesterol 39 mg/dL (40-60); LDL Cholesterol Calculated 62 mg/dL (<100); Triglycerides 69 mg/dL (35-150)
[2024-05-08 16:08] LABS: Creatinine Urine Random 311.75 mg/dL
[2024-05-08 16:39] LABS: Microalbumin Urine Random > 57.0 mg/dL (0-1.6)
== END ==
PROVIDERS: Internal Medicine Hematology & Oncology; PCP Family Medicine; Referring Provider Family Medicine; Visit Provider Family Medicine
DX: K59.00 Constipation, unspecified (principal); I10 Essential (primary) hypertension; G20.C Parkinsonism, unspecified; C91.40 Hairy cell leukemia not having achieved remission; Z90.79 Acquired absence of other genital organ(s)
CPT/HCPCS: 36415; 80053; 80061; 82043; 82570; 85025

== ENCOUNTER → 2024-05-27 13:54 | Outpatient (CLI) | payer MEDICARE, OTHER, SELFPAY ==
[2024-02-11 15:49] VITALS: BMI 22.9
== END ==
PROVIDERS: PCP Family Medicine; Visit Provider Urology
DX: R39.9 Unspecified symptoms and signs involving the genitourinary system (principal)
CPT/HCPCS: 87086

== ENCOUNTER 2024-06-23 12:27 | Emergency (ER) | payer MEDICARE, OTHER, SELFPAY ==
[2024-02-11 15:49] VITALS: BMI 22.9
[2024-06-23 13:07] VITALS: BP 148/73; PULSE 69; RESP 16; TEMP 36.3; O2SAT 99; BMI 23.6
--- NOTE | 2024-06-23 13:09 | DI.RAD.S_ITS ---
PROCEDURE: XR CHEST 1V INDICATIONS: chest pain TECHNIQUE: One view of the chest was acquired. COMPARISON: [facility], CR, XR CHEST 1V, 10/26/2023, 20:48. FINDINGS: Surgical changes and devices: Left-sided pacer. Lungs and pleura: Lungs are clear. No pleural effusions or pneumothorax. Mediastinum: Mediastinal contours appear normal. Heart size is normal. Bones and chest wall: No suspicious bony lesions. Overlying soft tissues appear unremarkable. IMPRESSION: No acute cardiopulmonary abnormality is seen. Dictated by: Rita Zhao M.D. on 06/23/2024 at 13:56 Approved by: Rita Zhao M.D. on 06/23/2024 at 13:56
[2024-06-23 13:47] LABS: Add Manual Diff / Slide Review NO; Basophils Absolute Auto 0 /uL (0-100); Basophils Percent Auto 0.4 % (0-2); Eosinophils Absolute Auto 100 /uL (0-450); Eosinophils Percent Auto 2.8 % (2-4); Hematocrit 39.5 % (41-53); Hemoglobin 13.8 g/dL (13.5-17.5); Lymphocytes Absolute Auto 600 /uL (1100-4500); Lymphocytes Percent Auto 12.7 % (25-40); Mean Corpuscular Hemoglobin 31.1 PG (26-34); Mean Corpuscular Volume 88.7 fL (80-100); Monocytes Absolute Auto 500 /uL (0-900); Monocytes Percent Auto 9.5 % (3-14); Neutrophils Absolute Auto 3800 /uL (1500-7000); Neutrophils Percent Auto 74.6 % (50-75); Platelet Count 154 X10^3/uL (150-400); Red Blood Cell Count 4.46 X10^6/uL (4.5-5.9); Red Cell Distribution Width 13.2 % (11.6-14.8); White Blood Cell Count 5.1 X10^3/uL (4.5-11.0)
[2024-06-23 13:59] LABS: INR 1.1 (0.9-1.3); Prothrombin Time 12.2 SECONDS (9.4-12.5)
[2024-06-23 14:02] LABS: PTT Partial Thromboplastin Tim 33 SECONDS (25.1-36.5)
[2024-06-23 14:05] LABS: Alanine Aminotransferase 10 IU/L (<50); Albumin Globulin Ratio 1.5 (1.0-2.8); Alkaline Phosphatase 80 U/L (38-126); Aspartate Aminotransferase 23 IU/L (17-59); BUN Creatinine Ratio 27.6 (6-22); Blood Urea Nitrogen 29 mg/dL (9-20); Carbon Dioxide 28 mmol/L (22-32); Chloride 103 mmol/L (98-107); Creatine Kinase 52 U/L (55-170); Estimated Glomerular Filt Rate > 60 mL/min (>60); Globulin 2.6 g/dL (1.7-4.1); Glucose 95 mg/dL (80-110); HEMOLYSIS < 15 (0-50); Lipase 84 U/L (23-300); Magnesium 2.4 mg/dL (1.6-2.3); Potassium 4.2 mmol/L (3.4-5.1); Sodium 137 mmol/L (137-145); Total Protein 6.6 g/dL (6.3-8.2)
[2024-06-23 14:16] LABS: NT-proBNP (BNP-Adult 18+) 240 pg/mL (<450); Troponin I 0.033 ng/mL (0.01-0.034)
[2024-06-23 16:16] LABS: Troponin I 0.031 ng/mL (0.01-0.034)
[2024-06-23 17:31] VITALS: BP 178/86; PULSE 62; RESP 20; O2SAT 96
[2024-06-23 17:34] VITALS: BP 178/86; PULSE 63; RESP 21; O2SAT 96
[2024-06-23 18:00] VITALS: PULSE 65; RESP 20; O2SAT 96
[2024-06-23 18:30] VITALS: PULSE 65; RESP 20; O2SAT 95
--- NOTE | 2024-06-23 19:06 | ED_ITS ---
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 Patient and his went to have [place] food last night and he had wonton soup. Last night he felt a burning in his chest and took 2 nitroglycerins, which he thinks improved his pain. Patient reported that he had some pain earlier this morning to nursing staff triage, however he tells me in the room that he was not had any pain since last night. He denies history of cardiac disease, he follows with Dr. Regalado of [facility], last saw Dr. Regalado 6 months ago. Currently asymptomatic Related Data Home Medications Medication Instructions Recorded Confirmed acetaminophen 325 mg tablet 325 mg PO Q6H PRN Pain (Scale 06/26/18 05/27/24 (Tylenol) Score 1-3) carbidopa 25 mg-levodopa 100 mg 25 - 100 tab PO QID PRN 07/14/20 05/27/24 disintegrating tablet parkinson's symptoms amlodipine 5 mg tablet 7.5 mg PO DAILY 10/27/22 05/27/24 atorvastatin 40 mg tablet 40 mg PO DAILY 02/15/23 05/27/24 isosorbide mononitrate 30 mg 30 ea PO DAILY 02/15/23 05/27/24 tablet,extended release 24 hr amantadine HCl 100 mg capsule 100 mg PO BID 04/16/24 05/27/24 aspirin 81 mg tablet,delayed 81 mg PO DAILY 04/16/24 05/27/24 release (Adult Aspirin Regimen) rutin 500 mg tablet 500 mg PO DAILY 04/16/24 05/27/24 taurine 500 mg capsule (Pure 500 mg PO DAILY 04/16/24 05/27/24 Taurine) Previous Rx's Medication Instructions Recorded losartan 50 mg tablet 50 mg PO BID #180 tabs 02/02/21 metoprolol succinate 50 mg 50 mg PO BID #90 tabs 02/16/22 tablet,extended release 24 hr Disabled Parking Permit #1 ea 03/31/24 Allergies Allergy/AdvReac Type Severity Reaction Status Date / Time adhesive tape Allergy Intermediate Blister Verified 05/27/24 13:50 cefuroxime Allergy Mild rash/ Verified 05/27/24 13:50 itching codeine [CODEINE] Allergy Mild NAUSEA Verified 05/27/24 13:50 clindamycin AdvReac N/V Verified 05/27/24 13:50 Patient History Medical History Bladder calculus Calcification of prostate History of radiation therapy Urinary incontinence Lower urinary tract symptoms Hx of chest pain Coronary artery disease Acute non-ST elevation myocardial infarction (NSTEMI) Headache Chronic low back pain with sciatica Paresthesias in left hand CVA (cerebral vascular accident) Hypertension Hairy cell leukemia Parkinsons disease Surgical History S/P deep brain stimulator placement (09/16/14) S/P TURP History of tonsillectomy Social History marital status: number of children: 2 household members: spouse occupational status: previously employed and other Smoking Status: Former smoker Tobacco: How many years used: 5 alcohol intake: never substance use type: does not use caffeine: No Type(s) of exercise: walking frequency: other Smoking Status: Former smoker alcohol intake frequency: a few times a month Substance Use Type: does not use Exam Initial Vital Signs Initial Vital Signs: Vital Signs Temperature 97.4 F L 06/23/24 13:07 Pulse Rate 69 06/23/24 13:07 Respiratory Rate 16 06/23/24 13:07 Blood Pressure 148/73 H 06/23/24 13:07 Pulse Oximetry 99 06/23/24 13:07 Oxygen Delivery Method Room Air 06/23/24 13:07 Const: Awake, alert, no acute distress, nontoxic appearing Cardiac: regular rate, regular rhythm RESP: unlabored, clear bilaterally, no wheezing Skin: Warm, Dry, intact, no rashes Neuro: AO x3, CN II-XII grossly intact, moves all extremities Course Orders Ordered: ED Orders 06/23/24 13:09 XR chest 1V Stat EKG-12 Lead Stat 06/23/24 13:35 Complete Blood Count AUTO DIFF Stat Comprehensive Metabolic Panel Stat Lipase Stat Magnesium Stat NT-proBNP (BNP-Adult 18+) Stat PTT Partial Thromboplastin Jamey Stat Prothrombin Time INR Stat Troponin & CK Cardiac Panel Stat 06/23/24 15:47 Trop I [Troponin I] Stat Discontinued Medications Aspirin (Aspirin 81 Mg Chew Tab) 324 mg PO NOW ONE Stop: 06/23/24 13:10 Last Admin: 06/23/24 15:16 Dose: Not Given Documented By: ES Vital Signs Vital signs: Vital Signs - 8 hr 06/23/24 13:07 06/23/24 17:31 06/23/24 17:34 Temperature 97.4 F L Pulse Rate 69 62 63 Respiratory Rate 16 20 21 Blood Pressure 148/73 H 178/86 H Pulse Oximetry 99 96 96 Oxygen Delivery Method Room Air 06/23/24 17:34 06/23/24 18:00 06/23/24 18:30 Temperature Pulse Rate 65 65 Respiratory Rate 20 20 Blood Pressure 178/86 H Pulse Oximetry 96 95 Oxygen Delivery Method Room Air 06/23/24 19:40 Temperature Pulse Rate 65 Respiratory Rate 18 Blood Pressure 182/84 H Pulse Oximetry 97 Oxygen Delivery Method Room Air MDM - Chest Pain Differential Diagnosis Differential diagnosis: Likely stable angina, unstable angina pectoris and atypical chest pain Lab Data 06/23/24 13:35 06/23/24 13:35 Labs: Lab Results 06/23/24 06/23/24 Range/Units 13:35 15:47 WBC 5.1 (4.5-11.0) X10^3/uL RBC 4.46 L (4.5-5.9) X10^6/uL Hgb 13.8 (13.5-17.5) g/dL Hct 39.5 L (41-53) % MCV 88.7 (80-100) fL MCH 31.1 (26-34) PG MCHC 35.0 (30-36) % RDW 13.2 (11.6-14.8) % Plt Count 154 (150-400) X10^3/uL Neut % (Auto) 74.6 (50-75) % Lymph % (Auto) 12.7 L (25-40) % [place] % (Auto) 9.5 (3-14) % Eos % (Auto) 2.8 (2-4) % Baso % (Auto) 0.4 (0-2) % Neut # (Auto) 3800 (9040-7608) /uL Lymph # (Auto) 600 L (0299-6694) /uL [place] # (Auto) 500 (0-900) /uL Eos # (Auto) 100 (0-450) /uL Baso # (Auto) 0 (0-100) /uL PT 12.2 (9.4-12.5) SECONDS INR 1.1 (0.9-1.3) APTT 33 (25.1-36.5) SECONDS Sodium 137 (137-145) mmol/L Potassium 4.2 (3.4-5.1) mmol/L Chloride 103 (98-107) mmol/L Carbon Dioxide 28 (22-32) mmol/L BUN 29 H (9-20) mg/dL Creatinine 1.05 (0.66-1.25) mg/dL Estimated GFR > 60 (>60) mL/min BUN/Creatinine Ratio 27.6 H (6-22) Glucose 95 (80-110) mg/dL Calcium 9.0 (8.4-10.2) mg/dL Magnesium 2.4 H (1.6-2.3) mg/dL Total Bilirubin 1.0 (0.2-1.3) mg/dL AST 23 (17-59) IU/L ALT 10 (<50) IU/L Alkaline Phosphatase 80 (38-126) U/L Total Creatine Kinase 52 L (55-170) U/L Troponin I 0.033 0.031 (0.01-0.034) ng/mL NT-Pro-B Natriuret Pep 240 (<450) pg/mL Total Protein 6.6 (6.3-8.2) g/dL Albumin 4.0 (3.5-5.0) g/dL Globulin 2.6 (1.7-4.1) g/dL Albumin/Globulin Ratio 1.5 (1.0-2.8) Lipase 84 (23-300) U/L Imaging Data Chest x-ray: Radiologist's Impression: PROCEDURE: XR CHEST 1V INDICATIONS: chest pain TECHNIQUE: One view of the chest was acquired. COMPARISON: [facility], CR, XR CHEST 1V, 10/26/2023, 20:48. FINDINGS: Surgical changes and devices: Left-sided pacer. Lungs and pleura: Lungs are clear. No pleural effusions or pneumothorax. Mediastinum: Mediastinal contours appear normal. Heart size is normal. Bones and chest wall: No suspicious bony lesions. Overlying soft tissues appear unremarkable. IMPRESSION: No acute cardiopulmonary abnormality is seen. ECG Data Interpretation: Normal sinus rhythm at 66 beats per minute, normal TN, no STEMI Of note, this is a 5 lead EKG MDM Narrative Medical decision making narrative: Well-appearing patient with chest pain last night after eating soup at a [place] restaurant. No pain since last night. Unfortunately due to presence of DBS unable to obtain an EKG. Patient's states that a normal EKG is never able to capture a rhythm and instead the cardiac leads on cardiac exercise physiologist were used. No obvious ST T wave changes. Troponin 0.033 and 0.031. Patient has remained pain-free for multiple hours in the emergency department. 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 Discharge Plan Departure Patient Disposition: Home Clinical Impression: Chest pain Instructions: DI for Chest Pain Activity Restrictions/Additional Instructions: Your laboratory work today was reassuring. We were unable to get a 12 lead EKG, but the 5 lead EKG that we were able to get from the cardiac exercise physiologist due to the presence of your deep brain stimulator did not show any concerning changes that would indicate an acute heart attack in process. Follow up with your automobile body worker, please call tomorrow for an appointment. If you notice return of chest pain please return to the emergency department for repeat evaluation. Prescriptions: No Action metoprolol succinate 50 mg tablet extended release 24 hr 50 mg PO BID Qty: 90 1RF (DME) Disabled Parking Permit See Rx Instructions .ROUTE .MEDSULY Qty: 1 0RF Rx Instructions: I find this patient to be medically disabled and qualified for Disabled Parking as indicated and signed on the accompanying Disabled Parking Application for Individuals. losartan 50 mg tablet 50 mg PO BID Qty: 180 3RF carbidopa-levodopa 25-100 mg tablet,disintegrating 25 - 100 tab PO QID PRN (Reason: parkinson's symptoms) atorvastatin 40 mg tablet 40 mg PO DAILY isosorbide mononitrate 30 mg tablet extended release 24 hr 30 ea PO DAILY Patient Comments: TAKE ONE TABLET BY MOUTH ONE TIME DAILY acetaminophen [Tylenol] 325 mg Tablet 325 mg PO Q6H PRN (Reason: Pain (Scale Score 1-3)) amlodipine 5 mg tablet 7.5 mg PO DAILY Rx Instructions: increase to 7.5mg daily if blood pressure above 140/90 daily. amantadine HCl 100 mg capsule 100 mg PO BID aspirin [Adult Aspirin Regimen] 81 mg tablet,delayed release (DR/EC) 81 mg PO DAILY rutin 500 mg tablet 500 mg PO DAILY Pure Taurine 500 mg capsule 500 mg PO DAILY Referrals: Anson Benitez MD [Primary Care Provider] - Stand Alone Forms: Patient Portal/API
--- NOTE | 2024-06-23 19:20 | PC.NURSE ---
Attempted EKG x3 with 3 different ekg machines and different staff members to troubleshoot. Unable to capture 12 lead. 5 lead from telemetry monitor in room printed for provider.
[2024-06-23 19:40] VITALS: BP 182/84; PULSE 65; RESP 18; O2SAT 97
== END 2024-06-23 19:41 | disposition home or self-care (01) ==
PROVIDERS: Emergency Medicine; Emergency Provider Emergency Medicine; Family Provider Family Medicine; PCP Family Medicine
DX: R07.9 Chest pain, unspecified (principal)
CPT/HCPCS: 36415; 71045; 80053; 82550; 83690; 83735; 83880; 84484; 85025; 85610; 85730; 99283; 99284

== ENCOUNTER → 2024-07-10 09:31 | Outpatient (CLI) | payer MEDICARE, OTHER, SELFPAY ==
[2024-02-11 15:49] VITALS: BMI 22.9
== END ==
PROVIDERS: Family Provider Family Medicine; PCP Family Medicine; Referring Provider Urology; Visit Provider Urology
DX: R39.9 Unspecified symptoms and signs involving the genitourinary system (principal)
CPT/HCPCS: 87077; 87086

== ENCOUNTER 2024-08-13 21:35 | Observation (INO) | payer MEDICARE, OTHER, SELFPAY ==
[2024-02-11 15:49] VITALS: BMI 22.9
[2024-08-13] VITALS (10 sets, daily range): BP systolic 163–188; BP diastolic 79–91; PULSE 63–78; RESP 18–24; TEMP 36.5; O2SAT 94–97; BMI 24.3
--- NOTE | 2024-08-13 21:44 | DI.RAD.S_ITS ---
PROCEDURE: XR CHEST 1V INDICATIONS: chest pain TECHNIQUE: One view of the chest was acquired. COMPARISON: [facility], CR, XR CHEST 1V, 06/23/2024, 13:26. [facility], CR, XR CHEST 1V, 10/26/2023, 20:48. FINDINGS: Surgical changes and devices: Stimulator device projects over the left chest Lungs and pleura: Low lung volumes. No dense consolidation or pleural effusion Mediastinum: Borderline heart size, unchanged Bones and chest wall: Degenerative findings IMPRESSION: No acute radiographic abnormality on this limited single view study. Dictated by: Roberto Denney M.D. on 08/13/2024 at 23:12 Approved by: Roberto Denney M.D. on 08/13/2024 at 23:13
[2024-08-13 21:53] LABS: Add Manual Diff / Slide Review NO; Basophils Absolute Auto 0 /uL (0-100); Basophils Percent Auto 0.4 % (0-2); Eosinophils Absolute Auto 200 /uL (0-450); Eosinophils Percent Auto 3.5 % (2-4); Hematocrit 38.6 % (41-53); Hemoglobin 13.7 g/dL (13.5-17.5); Lymphocytes Absolute Auto 800 /uL (1100-4500); Lymphocytes Percent Auto 14.8 % (25-40); Mean Corpuscular HGB Conc 35.4 % (30-36); Mean Corpuscular Hemoglobin 31.6 PG (26-34); Mean Corpuscular Volume 89.1 fL (80-100); Monocytes Absolute Auto 600 /uL (0-900); Monocytes Percent Auto 11.5 % (3-14); Neutrophils Absolute Auto 3600 /uL (1500-7000); Neutrophils Percent Auto 69.8 % (50-75); Platelet Count 144 X10^3/uL (150-400); Red Blood Cell Count 4.34 X10^6/uL (4.5-5.9); Red Cell Distribution Width 13.5 % (11.6-14.8); White Blood Cell Count 5.1 X10^3/uL (4.5-11.0)
[2024-08-13 21:54] LABS: INR 1.1 (0.9-1.3); Prothrombin Time 12.1 SECONDS (9.4-12.5)
[2024-08-13 21:56] LABS: PTT Partial Thromboplastin Tim 29 SECONDS (25.1-36.5)
[2024-08-13 21:58] LABS: Alanine Aminotransferase 10 IU/L (<50); Albumin 3.7 g/dL (3.5-5.0); Albumin Globulin Ratio 1.3 (1.0-2.8); Alkaline Phosphatase 72 U/L (38-126); Aspartate Aminotransferase 25 IU/L (17-59); Bilirubin Total 0.7 mg/dL (0.2-1.3); Blood Urea Nitrogen 25 mg/dL (9-20); Calcium 9.2 mg/dL (8.4-10.2); Carbon Dioxide 29 mmol/L (22-32); Chloride 104 mmol/L (98-107); Creatine Kinase 51 U/L (55-170); Estimated Glomerular Filt Rate > 60 mL/min (>60); Globulin 2.9 g/dL (1.7-4.1); Glucose 122 mg/dL (80-110); HEMOLYSIS < 15 (0-50); Lipase 79 U/L (23-300); Magnesium 2.1 mg/dL (1.6-2.3); Potassium 4.2 mmol/L (3.4-5.1); Sodium 136 mmol/L (137-145); Total Protein 6.6 g/dL (6.3-8.2)
--- NOTE | 2024-08-13 22:07 | PC.NURSE ---
12 lead EKG delayed due to presence of artifact from deep brain stimulator.
[2024-08-13 22:10] LABS: NT-proBNP (BNP-Adult 18+) 251 pg/mL (<450); Troponin I < 0.012 ng/mL (0.01-0.034)
[2024-08-14] VITALS (9 sets, daily range): BP systolic 152–184; BP diastolic 74–90; PULSE 58–87; RESP 15–19; TEMP 36.1–36.8; O2SAT 93–97; BMI 24.3
[2024-08-14 00:13] LABS: Troponin I < 0.012 ng/mL (0.01-0.034)
--- NOTE | 2024-08-14 01:49 | ED_ITS ---
HPI - Chest Pain General Chief Complaint: Chest Pain Stated Complaint: CP/palpitations Time Seen by Provider: 08/13/24 23:12 Source: patient and EMS Mode of arrival: EMS History of Present Illness HPI narrative: 79-year-old gentleman with a history of Parkinson's disease with brain stimulator in place, hairy cell leukemia prior episodes of chest pain presents with chest pain beginning this evening while sitting and watching TV. He describes left-sided chest pain, single nitro at home relieved his pain but did not feel that it worked as fast as it has previously Related Data Home Medications Medication Instructions Recorded Confirmed acetaminophen 325 mg tablet 325 mg PO Q6H PRN Pain (Scale 06/26/18 08/03/24 (Tylenol) Score 1-3) carbidopa 25 mg-levodopa 100 mg 25 - 100 tab PO QID PRN 07/14/20 08/03/24 disintegrating tablet parkinson's symptoms amlodipine 5 mg tablet 7.5 mg PO DAILY 10/27/22 08/03/24 atorvastatin 40 mg tablet 40 mg PO DAILY 02/15/23 08/03/24 isosorbide mononitrate 30 mg 30 ea PO DAILY 02/15/23 08/03/24 tablet,extended release 24 hr amantadine HCl 100 mg capsule 100 mg PO BID 04/16/24 08/03/24 aspirin 81 mg tablet,delayed 81 mg PO DAILY 04/16/24 08/03/24 release (Adult Aspirin Regimen) rutin 500 mg tablet 500 mg PO DAILY 04/16/24 08/03/24 taurine 500 mg capsule (Pure 500 mg PO DAILY 04/16/24 08/03/24 Taurine) Previous Rx's Medication Instructions Recorded losartan 50 mg tablet 50 mg PO BID #180 tabs 02/02/21 metoprolol succinate 50 mg 50 mg PO BID #90 tabs 02/16/22 tablet,extended release 24 hr Disabled Parking Permit #1 ea 03/31/24 Allergies Allergy/AdvReac Type Severity Reaction Status Date / Time adhesive tape Allergy Intermediate Blister Verified 08/03/24 15:10 cefuroxime Allergy Mild rash/ Verified 08/03/24 15:10 itching codeine [CODEINE] Allergy Mild NAUSEA Verified 08/03/24 15:10 clindamycin AdvReac N/V Verified 08/03/24 15:10 Patient History Medical History Bladder calculus Calcification of prostate History of radiation therapy Urinary incontinence Lower urinary tract symptoms Hx of chest pain Coronary artery disease Acute non-ST elevation myocardial infarction (NSTEMI) Headache Chronic low back pain with sciatica Paresthesias in left hand CVA (cerebral vascular accident) Hypertension Hairy cell leukemia Parkinsons disease Surgical History S/P deep brain stimulator placement (09/16/14) S/P TURP History of tonsillectomy Social History marital status: number of children: 2 household members: spouse occupational status: previously employed and other Smoking Status: Former smoker Tobacco: How many years used: 5 alcohol intake: never substance use type: does not use caffeine: No Type(s) of exercise: walking frequency: other Smoking Status: Former smoker alcohol intake frequency: a few times a month Substance Use Type: does not use Exam Initial Vital Signs Initial Vital Signs: Vital Signs Pulse Rate 78 08/13/24 21:38 Pulse Oximetry 97 08/13/24 21:38 Course Orders Ordered: ED Orders 08/13/24 21:30 Complete Blood Count AUTO DIFF Stat Comprehensive Metabolic Panel Stat Lipase Stat Magnesium Stat NT-proBNP (BNP-Adult 18+) Stat PTT Partial Thromboplastin Jamey Stat Prothrombin Time INR Stat Troponin & CK Cardiac Panel Stat 08/13/24 21:44 XR chest 1V Stat EKG-12 Lead Stat 08/13/24 23:45 Trop I [Troponin I] Stat Discontinued Medications Aspirin (Aspirin 81 Mg Chew Tab) 324 mg PO NOW ONE Stop: 08/13/24 21:45 Vital Signs Vital signs: Vital Signs - 8 hr 08/13/24 21:38 08/13/24 21:40 08/13/24 21:45 Temperature 97.7 F Pulse Rate 78 75 78 Respiratory Rate 18 18 Blood Pressure 185/91 H Pulse Oximetry 97 96 97 Oxygen Delivery Method Room Air 08/13/24 22:00 08/13/24 22:01 08/13/24 22:01 Temperature Pulse Rate 67 68 Respiratory Rate 22 24 Blood Pressure 163/79 H Pulse Oximetry 95 94 Oxygen Delivery Method 08/13/24 22:30 08/13/24 22:30 08/13/24 23:00 Temperature Pulse Rate 68 66 Respiratory Rate 20 21 Blood Pressure 188/82 H Pulse Oximetry 94 95 Oxygen Delivery Method 08/13/24 23:01 08/13/24 23:01 08/13/24 23:30 Temperature Pulse Rate 66 63 Respiratory Rate 22 21 Blood Pressure 182/84 H Pulse Oximetry 95 96 Oxygen Delivery Method 08/13/24 23:31 08/13/24 23:31 08/14/24 00:00 Temperature Pulse Rate 63 Respiratory Rate 22 Blood Pressure 180/83 H 178/86 H Pulse Oximetry 95 Oxygen Delivery Method 08/14/24 00:00 08/14/24 00:30 08/14/24 00:30 Temperature Pulse Rate 67 58 L Respiratory Rate 18 15 Blood Pressure 178/80 H Pulse Oximetry 96 96 Oxygen Delivery Method MDM - Chest Pain Lab Data 08/13/24 21:30 08/13/24 21:30 Labs: Lab Results 08/13/24 08/13/24 Range/Units 21:30 23:45 WBC 5.1 (4.5-11.0) X10^3/uL RBC 4.34 L (4.5-5.9) X10^6/uL Hgb 13.7 (13.5-17.5) g/dL Hct 38.6 L (41-53) % MCV 89.1 (80-100) fL MCH 31.6 (26-34) PG MCHC 35.4 (30-36) % RDW 13.5 (11.6-14.8) % Plt Count 144 L (150-400) X10^3/uL Neut % (Auto) 69.8 (50-75) % Lymph % (Auto) 14.8 L (25-40) % [place] % (Auto) 11.5 (3-14) % Eos % (Auto) 3.5 (2-4) % Baso % (Auto) 0.4 (0-2) % Neut # (Auto) 3600 (0566-5225) /uL Lymph # (Auto) 800 L (4364-3427) /uL [place] # (Auto) 600 (0-900) /uL Eos # (Auto) 200 (0-450) /uL Baso # (Auto) 0 (0-100) /uL PT 12.1 (9.4-12.5) SECONDS INR 1.1 (0.9-1.3) APTT 29 (25.1-36.5) SECONDS Sodium 136 L (137-145) mmol/L Potassium 4.2 (3.4-5.1) mmol/L Chloride 104 (98-107) mmol/L Carbon Dioxide 29 (22-32) mmol/L BUN 25 H (9-20) mg/dL Creatinine 1.04 (0.66-1.25) mg/dL Estimated GFR > 60 (>60) mL/min BUN/Creatinine Ratio 24.0 H (6-22) Glucose 122 H (80-110) mg/dL Calcium 9.2 (8.4-10.2) mg/dL Magnesium 2.1 (1.6-2.3) mg/dL Total Bilirubin 0.7 (0.2-1.3) mg/dL AST 25 (17-59) IU/L ALT 10 (<50) IU/L Alkaline Phosphatase 72 (38-126) U/L Total Creatine Kinase 51 L (55-170) U/L Troponin I < 0.012 < 0.012 (0.01-0.034) ng/mL NT-Pro-B Natriuret Pep 251 (<450) pg/mL Total Protein 6.6 (6.3-8.2) g/dL Albumin 3.7 (3.5-5.0) g/dL Globulin 2.9 (1.7-4.1) g/dL Albumin/Globulin Ratio 1.3 (1.0-2.8) Lipase 79 (23-300) U/L MDM Narrative Medical decision making narrative: CC: Chest pain Complicating co-morbidities: Parkinson's with deep brain stimulator, hairy cell leukemia Data collected from: patient Medical records reviewed: Nuclear medicine myocardial perfusion scan October of 2022 is interpreted as normal Cardiology notes from September 20, 2023 indicate that he does have a diagnosis of coronary artery disease with stable angina, history of NSTEMI in December of 2022. Cardiac catheterization January 08, 2023 done at [facility] showed mild coronary artery disease. At that point isosorbide mononitrate was added to his routine medications 40% proximal narrowing in the ramus intermedius vessel, 40% proximal narrowing the major diagonal, 50% narrowing of the circumflex Differential considered: STEMI, NSTEMI, musculoskeletal pain secondary to Parkinson's disease Exam documented above, pertinent findings include: Exam is notable for significant muscle twitching and periodic movement secondary to his Parkinson's disease with Pulmonary and Cardiac exam is unremarkable Lab Test results independently reviewed as above. Pertinent findings: CBC is unremarkable Chemistries are reassuring Initial troponin and repeat troponin are undetectable ProBNP is not elevated Lipase is reassured Independently reviewed EKG: Sinus rhythm at a rate of 87, mild STT wave depression inferior laterally, does seem to be evolving as slightly improving after his nitroglycerin Compared to December of [address] T wave changes do seem to be slightly more pronounced but were also noted at that time Imaging studies independently reviewed: Chest x-ray is unremarkable Consultations: Briefly reviewed findings with on-call Cardiology, Dr. Spicer. Given the fact that his last catheterization was year and a half ago, he does have some subtle and seemingly evolving changes after nitroglycerin his recommendation was to admit him to [facility] with stress testing and possible echocardiogram in the morning. We will discuss with the hospitalist service Treatments: Aspirin Discussion: Findings reviewed with patient and his . His heart score is 6. Recommendation for hospitalization for continued cardiac rule out with stress testing later today to help with further risk stratification is reviewed. Patient is are amenable to this. We will discuss with the hospitalist service. As he currently is pain-free I do not believe that heparin nor topical nitrites are going to be appropriate at this time Discharge Plan Departure Patient Disposition: Admitted as Observation Clinical Impression: Chest pain Qualifiers: Chest pain type: unspecified Qualified Code(s): R07.9 - Chest pain, unspecified Parkinson's disease Qualifiers: Dyskinesia presence: with dyskinesia Fluctuating manifestations: with fluctuating manifestations Qualified Code(s): G20.B2 - Parkinson's disease with dyskinesia, with fluctuations Admit Date/Time: 08/14/24 02:50 Admit Provider: Mitchell Hogan
[2024-08-14] MEDS: ASPIRIN 81 MG CHEW TAB 324 MG PO (02:52)
--- NOTE | 2024-08-14 03:35 | DI.ECHO.S_ITS ---
[facility] : : [address] : : [place] : : [id number] : : Phone: [phone] Echocardiogram Report + :Name: ASHLEY CONNELLY V Study Date: 08/14/2024 Height: 70 in : :[facility] ReadingLocation: Weight: 170 lb : : Gender: Male BSA: 1.9 m2 : :: 1945 Age: 79 yrs BP: 161/81 mmHg: :Reason For Study: Chest pain : :Ordering Physician: JOSE A : :RUTHIE CAMPBELL Performed By: Essie Santa : :Referring: RUTHIE JACKSON : + Interpretation Summary The left ventricle is normal in size and wall thickness. The ejection fraction is estimated to be 60-65%. The right ventricle grossly appears normal in size with probable normal systolic function. The right ventricular systolic pressure is estimated to be at least 23 mmHg based on an estimated right atrial pressure of 3 mm Hg. The left atrium is moderately dilated. There is mild to moderate aortic stenosis. The aortic valve area is 1.6 centimeters squared by planimetry. The calculated aortic valve area is 1.4 cm2. The peak aortic velocity is 2.1 m/sec. The peak aortic velocity on the previous exam was 1.9 m/sec. There is mild to moderate aortic regurgitation. Procedure: A two-dimensional transthoracic echocardiogram with color flow and Doppler was performed. The study quality was technically adequate. Comparison is made with the echocardiogram of 10-28-22. The heart rate ranged between 67-71 bpm during the study. Left Ventricle: The left ventricle is normal in size and wall thickness. The ejection fraction is estimated to be 60-65%. Left ventricular wall motion is normal. Diastolic parameters suggest a relaxation abnormality of the left ventricle, consistent with probable normal filling pressures. Right Ventricle: The right ventricle grossly appears normal in size with probable normal systolic function. Atria: The left atrium is moderately dilated. Right atrial size is normal. The interatrial septum grossly appears intact with no obvious evidence for an atrial septal defect. Mitral Valve: The mitral valve leaflets appear borderline thickened, but open well. There is mild mitral annular calcification. Aortic Valve: The aortic valve is moderately calcified. There is mild to moderate aortic stenosis. The aortic valve area is 1.6 centimeters squared by planimetry. The calculated aortic valve area is 1.4 cm2. The peak aortic velocity is 2.1 m/sec. The aortic valve mean gradient is 10 mmHg. The peak aortic velocity on the previous exam was 1.9 m/sec. There is mild to moderate aortic regurgitation. Tricuspid Valve: The tricuspid valve leaflets are thin and pliable. There is mild tricuspid regurgitation. The right ventricular systolic pressure is estimated to be at least 23 mmHg based on an estimated right atrial pressure of 3 mm Hg. Pulmonic Valve: The pulmonic valve is normal in structure and function. There is trace pulmonic regurgitation. Great Vessels: The aortic root is normal size. The ascending aorta is normal in size. The aortic arch is at the upper limits of normal in size. The IVC is of normal diameter and collapses greater than 50% with a sniff. This suggests a low right atrial pressure of 3 mm Hg. Pericardium/ Pleura There is no pericardial effusion. There is no pleural effusion. MMode/2D Measurements & Calculations LVIDd: 5.1 cm LVOT diam: 1.9 cm LVIDs: 3.1 cm Ao root diam: 3.8 cm FS: 38.7 % asc Aorta Diam: 3.5 cm EPSS: 0.17 cm Ao Arch Diam (Prox Trans): 3.4 cm IVSd: 1.1 cm LVPWd: 0.89 cm LV garrido. diameter/BSA (cm/m^2): 2.6 LV sys. diameter/BSA (cm/m^2): 1.6 LA A2 area: 24.8 cm2 RA long axis: 5.4 cm LA A4 area: 25.0 cm2 RA area: 17.1 cm2 LA length (vol): 5.9 cm RA vol: 46.2 ml LA vol: 89.9 ml RA : 23.7 ml/m2 LA vol index: 46.2 ml/m2 RVD1 (basal): 3.3 cm TAPSE: 2.3 cm Doppler Measurements & Calculations Ao V2 max: 214.0 cm/sec LVOT Max Jamal: 99.4 cm/sec Ao V2 mean: 140.7 cm/sec LV V1 max P.9 mmHg Ao max P.3 mmHg LV V1 VTI: 21.5 cm Ao mean P.5 mmHg CLARENCE(I,D): 1.4 cm2 Ao V2 VTI: 45.0 cm CLARENCE(V,D): 1.3 cm2 sev ratio: 0.48 CLARENCE indexed to BSA (cm^2/m^2): 0.70 AI P1/2t: 429.8 msec AI dec slope: 290.0 cm/sec2 MV E max jamal: 48.8 cm/sec TR max jamal: 221.6 cm/sec MV A max jamal: 88.6 cm/sec TR max P.6 mmHg MV E/A: 0.55 PA V2 max: 80.7 cm/sec Med Peak E' Jamal: 4.0 cm/sec PA V2 mean: 59.3 cm/sec E/E' med: 12.1 PA mean P.6 mmHg Lat Peak E' Jamal: 5.2 cm/sec PA pr(Accel): 0.22 mmHg E/E' lat: 9.4 E/e' average: 10.8 MV dec time: 0.31 sec SV(LVOT): 61.6 ml Reading Physician:05:12 PM
[2024-08-14] MEDS: CARBIDOPA-LEVODOPA ER 50/200 TABLET 1 EACH PO ×3 (05:26→17:08)
[2024-08-14] MEDS: CARBIDOPA-LEVODOPA 25/100 TABLET 1 EACH PO ×2 (05:26→09:56)
[2024-08-14 06:23] LABS: Add Manual Diff / Slide Review NO; Basophils Absolute Auto 0 /uL (0-100); Basophils Percent Auto 0.4 % (0-2); Eosinophils Absolute Auto 200 /uL (0-450); Eosinophils Percent Auto 3.4 % (2-4); Hemoglobin 14.1 g/dL (13.5-17.5); Lymphocytes Absolute Auto 800 /uL (1100-4500); Lymphocytes Percent Auto 15.8 % (25-40); Mean Corpuscular HGB Conc 35.2 % (30-36); Mean Corpuscular Hemoglobin 31.1 PG (26-34); Mean Corpuscular Volume 88.5 fL (80-100); Monocytes Absolute Auto 400 /uL (0-900); Neutrophils Absolute Auto 3600 /uL (1500-7000); Neutrophils Percent Auto 71.4 % (50-75); Platelet Count 138 X10^3/uL (150-400); Red Blood Cell Count 4.52 X10^6/uL (4.5-5.9); Red Cell Distribution Width 13.2 % (11.6-14.8)
--- NOTE | 2024-08-14 06:23 | PM.HP.1 ---
History of Present Illness History of Present Illness Chief complaint: CP/palpitations Narrative: 79 y/o with PMH of CAD, NSTEMI, had an episode of chest pain at home, while watching a TV, he took NTG which helped but it took longer then before. He had prior similar episodes, some of which were ending with ED visits, such as on 06/23. On admission hypertensive. Without additional complaints, denies SOB, diaphoresis, nausea, dizziness. EKG w/o acute ischemic changes, 2 troponins WNR. Cardiology consulted from the ER, Dr Hunt, recommending stress test. [facility] Medical History (Updated 08/14/24 @ 06:37 by Mitchell Hoang MD) Bladder calculus Calcification of prostate History of radiation therapy Urinary incontinence Lower urinary tract symptoms Hx of chest pain Coronary artery disease Acute non-ST elevation myocardial infarction (NSTEMI) Headache Chronic low back pain with sciatica Paresthesias in left hand CVA (cerebral vascular accident) Hypertension Hairy cell leukemia Parkinsons disease Surgical History S/P deep brain stimulator placement (09/16/14) S/P TURP History of tonsillectomy Social History marital status: number of children: 2 household members: spouse occupational status: previously employed and other Smoking Status: Former smoker Tobacco: How many years used: 5 alcohol intake: never substance use type: does not use caffeine: No Type(s) of exercise: walking frequency: other Meds Home Medications and Allergies Home Medications Medication Instructions Recorded Confirmed Type acetaminophen 325 mg tablet 325 mg PO Q6H PRN Pain (Scale 06/26/18 08/14/24 History (Tylenol) Score 1-3) carbidopa 25 mg-levodopa 100 mg 25 - 100 tab PO QID parkinson's 07/14/20 08/14/24 History disintegrating tablet symptoms losartan 50 mg tablet 50 mg PO BID #180 tabs 02/02/21 08/14/24 Rx metoprolol succinate 50 mg 50 mg PO BID #90 tabs 02/16/22 08/14/24 Rx tablet,extended release 24 hr amlodipine 5 mg tablet 10 mg PO BID 10/27/22 08/14/24 History atorvastatin 40 mg tablet 40 mg PO DAILY 02/15/23 08/14/24 History isosorbide mononitrate 30 mg 30 ea PO DAILY 02/15/23 08/14/24 History tablet,extended release 24 hr Disabled Parking Permit #1 ea 03/31/24 08/14/24 Rx carbidopa ER 50 mg-levodopa 200 mg 1 tab PO QID 08/14/24 08/14/24 History tablet,extended release Allergies Allergy/AdvReac Type Severity Reaction Status Date / Time adhesive tape Allergy Intermediate Blister Verified 08/03/24 15:10 cefuroxime Allergy Mild rash/ Verified 08/03/24 15:10 itching codeine [CODEINE] Allergy Mild NAUSEA Verified 08/03/24 15:10 clindamycin AdvReac N/V Verified 08/03/24 15:10 Review of Systems Constitutional Comments: w/o fever, chills, weight changes Cardiovascular Comments: see HPI Genitourinary Comments: chronic urinary incontinence, using condom catheter Neurologic Comments: impaired mobility Exam Vital Signs (past 8 hours): - 08/13/24 22:30 08/13/24 22:30 08/13/24 23:00 Temperature Pulse Rate 68 66 Respiratory Rate 20 21 Blood Pressure 188/82 H Pulse Oximetry 94 95 Oxygen Delivery Method Oxygen Flow Rate 08/13/24 23:01 08/13/24 23:01 08/13/24 23:30 Temperature Pulse Rate 66 63 Respiratory Rate 22 21 Blood Pressure 182/84 H Pulse Oximetry 95 96 Oxygen Delivery Method Oxygen Flow Rate 08/13/24 23:31 08/13/24 23:31 08/14/24 00:00 Temperature Pulse Rate 63 Respiratory Rate 22 Blood Pressure 180/83 H 178/86 H Pulse Oximetry 95 Oxygen Delivery Method Oxygen Flow Rate 08/14/24 00:00 08/14/24 00:30 08/14/24 00:30 Temperature Pulse Rate 67 58 L Respiratory Rate 18 15 Blood Pressure 178/80 H Pulse Oximetry 96 96 Oxygen Delivery Method Oxygen Flow Rate 08/14/24 02:55 08/14/24 03:30 08/14/24 03:50 Temperature 97 F L 97 F L Pulse Rate 87 66 66 Respiratory Rate 18 18 18 Blood Pressure 184/90 H 161/81 H 161/81 H Pulse Oximetry 97 96 96 Oxygen Delivery Method Room Air Oxygen Flow Rate 0 0 Oxygen Delivery Method Room Air Oxygen Flow Rate 0 Const Other: in no distress, at bedside HENMT Other: normocephalic Neck Other: supple Resp Other: CTA Cardio Other: RRR Skin Other: w/o rashes Neuro Other: bradykinetic, w/o tremor Extrem Other: not swollen Psych Other: appropriate mood, lucid Objective ECG Impression: NSR, w/o acute ischemic changes Labs 08/13/24 21:30 08/13/24 21:30 Labs: Laboratory Results - last 24 hr 08/13/24 08/13/24 21:30 23:45 WBC 5.1 RBC 4.34 L Hgb 13.7 Hct 38.6 L MCV 89.1 MCH 31.6 MCHC 35.4 RDW 13.5 Plt Count 144 L Neut % (Auto) 69.8 Lymph % (Auto) 14.8 L [place] % (Auto) 11.5 Eos % (Auto) 3.5 Baso % (Auto) 0.4 Neut # (Auto) 3600 Lymph # (Auto) 800 L [place] # (Auto) 600 Eos # (Auto) 200 Baso # (Auto) 0 PT 12.1 INR 1.1 APTT 29 Sodium 136 L Potassium 4.2 Chloride 104 Carbon Dioxide 29 BUN 25 H Creatinine 1.04 Estimated GFR > 60 BUN/Creatinine Ratio 24.0 H Glucose 122 H Calcium 9.2 Magnesium 2.1 Total Bilirubin 0.7 AST 25 ALT 10 Alkaline Phosphatase 72 Total Creatine Kinase 51 L Troponin I < 0.012 < 0.012 NT-Pro-B Natriuret Pep 251 Total Protein 6.6 Albumin 3.7 Globulin 2.9 Albumin/Globulin Ratio 1.3 Lipase 79 Assessment & Plan Assessment and plan (1) Chest pain: Qualifiers: Chest pain type: unspecified Qualified Code(s): R07.9 - Chest pain, unspecified Status: Acute (2) Coronary artery disease: Qualifiers: Coronary Disease-Associated Artery/Lesion type: [place] artery [place] vs. transplanted heart: [place] heart Associated angina: unspecified whether angina present Qualified Code(s): I25.10 - Atherosclerotic heart disease of [place] coronary artery without angina pectoris Status: Acute (3) Hypertension: Qualifiers: Hypertension type: primary hypertension Qualified Code(s): I10 - Essential (primary) hypertension Status: Acute (4) Parkinson's disease: Qualifiers: Dyskinesia presence: with dyskinesia Fluctuating manifestations: with fluctuating manifestations Qualified Code(s): G20.B2 - Parkinson's disease with dyskinesia, with fluctuations Status: Acute (5) Urinary incontinence: Qualifiers: Urinary Incontinence type: urge incontinence Qualified Code(s): N39.41 - Urge incontinence Status: Acute (6) Hairy cell leukemia: Qualifiers: Leukemia Active/Remission status: in remission Qualified Code(s): C91.41 - Hairy cell leukemia, in remission Status: Acute Assessment & Plan narrative: Chest Pain - known CAD, angina - placed in observation, on telemetry - stress test, echo pending - statin, Imdur HTN - Norvasc, Losartan Parkinson's Disease - s/p deep brain stimulator - Sinemet Urinary Incontinence - s/p TURP for Ca - condom catheter DVT prophylaxis - Lovenox Time-Based Coding :: [TOTAL MINUTES] spent with patient and on the chart (including review of chart, obtaining history, exam, reviewing outside data, placing orders, documenting exam and treatment plan, and counseling patient) on [DATE].
[2024-08-14 06:44] LABS: BUN Creatinine Ratio 22.3 (6-22); Blood Urea Nitrogen 21 mg/dL (9-20); Calcium 8.9 mg/dL (8.4-10.2); Carbon Dioxide 26 mmol/L (22-32); Chloride 103 mmol/L (98-107); Estimated Glomerular Filt Rate > 60 mL/min (>60); Glucose 129 mg/dL (80-110); HEMOLYSIS < 15 (0-50); Potassium 3.8 mmol/L (3.4-5.1); Sodium 136 mmol/L (137-145)
--- NOTE | 2024-08-14 07:43 | PM.HP.1 ---
History of Present Illness History of Present Illness Date Patient Seen: 08/14/24 Chief complaint: CP/palpitations Narrative: From night doctor: 79 y/o with PMH of CAD, NSTEMI, had an episode of chest pain at home, while watching a TV, he took NTG which helped but it took longer then before. He had prior similar episodes, some of which were ending with ED visits, such as on 06/23. On admission hypertensive. Without additional complaints, denies SOB, diaphoresis, nausea, dizziness. EKG w/o acute ischemic changes, 2 troponins WNR. Cardiology consulted from the ER, Dr Hunt, recommending stress test. S: The patient has a somewhat vague history of intermittent chest pain over the past period of time. He notes that his more frequent and perhaps more severe. He describes a pressure in his sternum. He notes it has not clearly associated with exertion and. It has also not clearly pleuritic positional in nature. He denies any associated symptoms such as dyspnea, or nausea, or diaphoresis. He he was followed by Dr. Regalado, [facility]. They report an angiogram in the past which is said to be nonobstructive. He denies recent stress testing. He was unable to walk for 10 minutes briskly. [facility] Medical History Bladder calculus Calcification of prostate History of radiation therapy Urinary incontinence Lower urinary tract symptoms Hx of chest pain Coronary artery disease Acute non-ST elevation myocardial infarction (NSTEMI) Headache Chronic low back pain with sciatica Paresthesias in left hand CVA (cerebral vascular accident) Hypertension Hairy cell leukemia Parkinsons disease Surgical History S/P deep brain stimulator placement (09/16/14) S/P TURP History of tonsillectomy Social History marital status: number of children: 2 household members: spouse occupational status: previously employed and other Smoking Status: Former smoker Tobacco: How many years used: 5 alcohol intake: never substance use type: does not use caffeine: No Type(s) of exercise: walking frequency: other Meds Home Medications and Allergies Home Medications Medication Instructions Recorded Confirmed Type acetaminophen 325 mg tablet 325 mg PO Q6H PRN Pain (Scale 06/26/18 08/14/24 History (Tylenol) Score 1-3) carbidopa 25 mg-levodopa 100 mg 25 - 100 tab PO QID parkinson's 07/14/20 08/14/24 History disintegrating tablet symptoms losartan 50 mg tablet 50 mg PO BID #180 tabs 02/02/21 08/14/24 Rx metoprolol succinate 50 mg 50 mg PO BID #90 tabs 02/16/22 08/14/24 Rx tablet,extended release 24 hr amlodipine 5 mg tablet 10 mg PO BID 10/27/22 08/14/24 History atorvastatin 40 mg tablet 40 mg PO DAILY 02/15/23 08/14/24 History isosorbide mononitrate 30 mg 30 ea PO DAILY 02/15/23 08/14/24 History tablet,extended release 24 hr Disabled Parking Permit #1 ea 03/31/24 08/14/24 Rx carbidopa ER 50 mg-levodopa 200 mg 1 tab PO QID 08/14/24 08/14/24 History tablet,extended release Allergies Allergy/AdvReac Type Severity Reaction Status Date / Time adhesive tape Allergy Intermediate Blister Verified 08/03/24 15:10 cefuroxime Allergy Mild rash/ Verified 08/03/24 15:10 itching codeine [CODEINE] Allergy Mild NAUSEA Verified 08/03/24 15:10 clindamycin AdvReac N/V Verified 08/03/24 15:10 Review of Systems Review of Systems Narrative: All else reviewed and otherwise unremarkable except as noted in the history and physical. Exam Vital Signs (past 8 hours): - 08/14/24 00:00 08/14/24 00:00 08/14/24 00:30 Temperature Pulse Rate 67 58 L Respiratory Rate 18 15 Blood Pressure 178/86 H Pulse Oximetry 96 96 Oxygen Delivery Method Oxygen Flow Rate 08/14/24 00:30 08/14/24 02:55 08/14/24 03:30 Temperature 97 F L Pulse Rate 87 66 Respiratory Rate 18 18 Blood Pressure 178/80 H 184/90 H 161/81 H Pulse Oximetry 97 96 Oxygen Delivery Method Room Air Oxygen Flow Rate 0 08/14/24 03:50 Temperature 97 F L Pulse Rate 66 Respiratory Rate 18 Blood Pressure 161/81 H Pulse Oximetry 96 Oxygen Delivery Method Oxygen Flow Rate 0 Oxygen Delivery Method Room Air Oxygen Flow Rate 0 Narrative Exam Narrative: NAD, alert and oriented, fluent speech, calm. He appears somewhat chronically ill and has intermittent jerking movements of his entire body. Normocephalic skull, EOMI, anicteric sclera, symmetric pupils. Oropharynx unremarkable, no droop. Neck supple, midline trachea, no adenopathy. Lungs clear, normal rate and effort. Heart regular, no murmur gallop or rub. Abdomen is soft, non distended and non tender. Extremities are free of edema. Skin is free of rash or lesions. Joints are not swollen or deformed. Judgment appears to be normal. Objective ECG Impression: NSR without acute changes. Inferior Q waves. Imaging Chest x-ray: Radiologist's impression: No acute radiographic abnormality on this limited single view study. Labs 08/14/24 05:45 08/14/24 05:45 Labs: Laboratory Results - last 24 hr 08/13/24 08/13/24 08/14/24 21:30 23:45 05:45 WBC 5.1 5.0 RBC 4.34 L 4.52 Hgb 13.7 14.1 Hct 38.6 L 40.0 L MCV 89.1 88.5 MCH 31.6 31.1 MCHC 35.4 35.2 RDW 13.5 13.2 Plt Count 144 L 138 L Neut % (Auto) 69.8 71.4 Lymph % (Auto) 14.8 L 15.8 L [place] % (Auto) 11.5 9.0 Eos % (Auto) 3.5 3.4 Baso % (Auto) 0.4 0.4 Neut # (Auto) 3600 3600 Lymph # (Auto) 800 L 800 L [place] # (Auto) 600 400 Eos # (Auto) 200 200 Baso # (Auto) 0 0 PT 12.1 INR 1.1 APTT 29 Sodium 136 L 136 L Potassium 4.2 3.8 Chloride 104 103 Carbon Dioxide 29 26 BUN 25 H 21 H Creatinine 1.04 0.94 Estimated GFR > 60 > 60 BUN/Creatinine Ratio 24.0 H 22.3 H Glucose 122 H 129 H Calcium 9.2 8.9 Magnesium 2.1 Total Bilirubin 0.7 AST 25 ALT 10 Alkaline Phosphatase 72 Total Creatine Kinase 51 L Troponin I < 0.012 < 0.012 NT-Pro-B Natriuret Pep 251 Total Protein 6.6 Albumin 3.7 Globulin 2.9 Albumin/Globulin Ratio 1.3 Lipase 79 Assessment & Plan Assessment & Plan narrative: Chest Pain, present on admission and improved. - known CAD, angina - placed in observation, on telemetry - stress test, echo pending - statin, Imdur HTN, present on admission and stable. - Norvasc, Losartan Parkinson's Disease, present on admission and stable. - s/p deep brain stimulator - Sinemet Urinary Incontinence, present on admission and stable. - s/p TURP for Ca - condom catheter PLAN: -complete echo and stress test. -review of situation and results with Cardiology after. -if unremarkable, anticipate discharge home later today. DVT prophylaxis - Lovenox Full code ROMELIA 08/14. Time-Based Coding :: 35 min spent with patient and on the chart (including review of chart, obtaining history, exam, reviewing outside data, placing orders, documenting exam and treatment plan, and counseling patient) on 08/14. Quality MIPS - Admit I confirm the patient?s Advance Care Plan is present, Code status is documented, Surrogate decision maker is in patient?s record [If Yes, STOP here]: Yes MIPS - Meds 'Current medications' to include all prescriptions, [id number] products, herbals, cannabis/cannabidiol products, and vitamin/mineral/dietary (nutritional) supplements. I have utilized all available resources to obtain, update, or review the patient?s current medications. [If Yes, STOP here]: Yes
[2024-08-14] MEDS: ATORVASTATIN 20 MG TABLET 40 MG PO (08:16)
[2024-08-14] MEDS: LOSARTAN 50 MG TABLET PO ×2 (08:16→20:20)
[2024-08-14] MEDS: ENOXAPARIN 40 MG/0.4 ML SYRINGE SUBCUT (08:16)
[2024-08-14] MEDS: AMLODIPINE 5 MG TABLET 7.5 MG PO (08:17)
[2024-08-14] MEDS: ISOSORBIDE MONONITRATE ER 30 MG TABLET PO (08:18)
--- NOTE | 2024-08-14 14:15 | CM.DANOTE ---
DCP Assessment Note: Pt is a 79yo male, resident of [place], is admitted for an episode of chest pain. Pt has a previous medical hisotry of Parkinson's Disease, CAD, NSTEMI. Pt lives in a house with his , Elvie. Pt's Primary Care Provider is Dr. Anson Benitez and insurance is Medicare and [facility]. Reviewed chart and team rounds for pt's medical status and initial discharge needs. DCP met w/patient at bedside; introduced self and role. Present in the room were pt's , Elvie, and his brother. Patient was found in bed, alert and oriented, cooperative with assessment. Due to pt's Parkinson's Disease, his baseline is speaking softly and limited speech. Pt spoke on his behalf. It is reported that pt was able to complete only half of a stress test today and might have to wait until Saturday to complete it. Per pt and , it is the preference to return home when medically stable (was hopeful to discharge today). Pt declined any referrals to services in the community to include home health at this time. DCP encouraged to discuss this again with PCP at follow up should they change their mind. Per RN, pt might have to stay until Saturday to complete stress test before being discharged home. Plan: Anticipating discharge home with spouse when medically cleared, stress test results pending. CM team will follow closely for coordination of discharge plans. HUMBERTO Quinn Discharge Planning/Care Management Advanced directive, confirm from FAMILY Start: 08/14/24 03:49 Freq: Q24H Status: Active Protocol: Document 08/14/24 04:20 SR (Rec: 08/14/24 04:20 SR [id number]) Advance Directive, confirm on record Time 04:20 Person contacted Copy received No CM Discharge Assessment Start: 08/14/24 14:12 Freq: Status: Active Protocol: Document 08/14/24 14:12 MW (Rec: 08/14/24 14:15 MW [id number]) Discharge Planning Assessment Assigned Lidder ACE Hart DPOA/Assigned Designee Name Elvie, Spouse Contact Information [phone] Advance Directives? No Advance Directives on File No History Provided By Patient,Medical Record Prior Living Arrangements House Household Members spouse Type of transporation used prior to Relies on Others admit Independent with ADL's Yes Is patient alert and oriented? Yes Caregiver for Another No DME Already Rented / Owned FWW / Walker,Cane Patient/Family Preference Home with Home Health Barriers to Discharge No Discharge Plan Home Transportation Arrangement Spouse Referrals Initiated Home Health If patient plan is home with home health Yes : Has signed face to face form been completed? Whiteboard Updated in Patient Room with Yes name and ext. # of Lidder Comment [phone] Please Provide Date Initial DC 08/14/24 Assessment Was Performed Next Review Type Continued Stay Review
[2024-08-14] MEDS: ACETAMINOPHEN 325 MG TABLET 650 MG PO (14:16)
[2024-08-15] VITALS (8 sets, daily range): BP systolic 105–182; BP diastolic 53–92; PULSE 66–83; RESP 17–18; TEMP 35.8–36.3; O2SAT 94–98
[2024-08-15] MEDS: CARBIDOPA-LEVODOPA ER 50/200 TABLET 1 EACH PO ×4 (00:16→17:58)
--- NOTE | 2024-08-15 07:31 | PM.PN.1 ---
Subjective Subjective Interval history: Interval summary: Patient presented with chest pain. He underwent a stress phase of Myoview yesterday, but needs a delayed resting view which can not be performed until Saturday. Subjective: He was doing well, no chest pain or dyspnea. His stress phase nuclear scan revealed inferior defect which may be ischemic or an artifact. His rest phase can not be completed until Saturday. Exam Vital Signs (past 8 hours): - 08/15/24 00:00 08/15/24 02:00 08/15/24 03:00 Temperature 97.3 F L 97.1 F L Pulse Rate 73 66 Respiratory Rate 18 18 Blood Pressure 182/92 H 169/80 H Pulse Oximetry 94 94 Oxygen Flow Rate 0 0 Oxygen Delivery Method Room Air Oxygen Flow Rate 0 Narrative Exam Narrative: NAD, alert and oriented. Fluent speech. Lungs are clear, normal rate and effort. Heart is regular, no murmur gallop or rub. Abdomen is soft, non distended. Extremities are free of edema. Objective Imaging Echo: Radiologist's impression: The left ventricle is normal in size and wall thickness. The ejection fraction is estimated to be 60-65%. The right ventricle grossly appears normal in size with probable normal systolic function. The right ventricular systolic pressure is estimated to be at least 23 mmHg based on an estimated right atrial pressure of 3 mm Hg. The left atrium is moderately dilated. There is mild to moderate aortic stenosis. The aortic valve area is 1.6 centimeters squared by planimetry. The calculated aortic valve area is 1.4 cm2. The peak aortic velocity is 2.1 m/sec. The peak aortic velocity on the previous exam was 1.9 m/sec. There is mild to moderate aortic regurgitation. Labs 08/14/24 05:45 08/14/24 05:45 [facility] Medical History Bladder calculus Calcification of prostate History of radiation therapy Urinary incontinence Lower urinary tract symptoms Hx of chest pain Coronary artery disease Acute non-ST elevation myocardial infarction (NSTEMI) Headache Chronic low back pain with sciatica Paresthesias in left hand CVA (cerebral vascular accident) Hypertension Hairy cell leukemia Parkinsons disease Surgical History S/P deep brain stimulator placement (09/16/14) S/P TURP History of tonsillectomy Social History marital status: number of children: 2 household members: spouse occupational status: previously employed and other Smoking Status: Former smoker Tobacco: How many years used: 5 alcohol intake: never substance use type: does not use caffeine: No Type(s) of exercise: walking frequency: other Assessment & Plan Assessment & Plan narrative: 1. Chest Pain, present on admission and improved. - known CAD, angina - placed in observation, on telemetry - stress test, partially complete. Needs resting scan on Saturday. - statin, Imdur 2. HTN, present on admission and stable. - Norvasc, Losartan 3. Parkinson's Disease, present on admission and stable. - s/p deep brain stimulator - Sinemet 4. Urinary Incontinence, present on admission and stable. - s/p TURP for Ca - condom catheter PLAN: -complete nuclear stress resting phase when able. -Ambulate -telemetry -continue chronic BP medications. DVT prophylaxis - Lovenox Full code ROMELIA 08/17. Time-Based Coding :: [TOTAL MINUTES] spent with patient and on the chart (including review of chart, obtaining history, exam, reviewing outside data, placing orders, documenting exam and treatment plan, and counseling patient) on [DATE].
[2024-08-15] MEDS: ISOSORBIDE MONONITRATE ER 30 MG TABLET PO (08:29)
[2024-08-15] MEDS: LOSARTAN 50 MG TABLET PO ×2 (08:29→20:32)
[2024-08-15] MEDS: CARBIDOPA-LEVODOPA 25/100 TABLET 1 EACH PO ×4 (08:29→22:26)
[2024-08-15] MEDS: ATORVASTATIN 20 MG TABLET 40 MG PO (08:30)
[2024-08-15] MEDS: AMLODIPINE 5 MG TABLET 7.5 MG PO (08:30)
[2024-08-15] MEDS: ENOXAPARIN 40 MG/0.4 ML SYRINGE SUBCUT (09:12)
[2024-08-15] MEDS: ACETAMINOPHEN 325 MG TABLET 650 MG PO (20:32)
[2024-08-16] VITALS (7 sets, daily range): BP systolic 103–173; BP diastolic 54–84; PULSE 67–82; RESP 16–18; TEMP 35.8–36.6; O2SAT 93–98
[2024-08-16] MEDS: CARBIDOPA-LEVODOPA ER 50/200 TABLET 1 EACH PO ×5 (00:27→23:13)
--- NOTE | 2024-08-16 07:29 | PM.PN.1 ---
Subjective Subjective Interval history: Admitted with chest pain, and currently waiting for the resting phase of his stress test. This is not available until Saturday. He was otherwise been stable. S: No new issues or concerns. No chest pain or dyspnea. Exam Vital Signs (past 8 hours): - 08/16/24 00:00 08/16/24 04:00 Temperature 97.8 F 96.8 F L Pulse Rate 67 68 Respiratory Rate 17 17 Blood Pressure 159/66 H 173/80 H Pulse Oximetry 96 97 Oxygen Flow Rate 0 0 Oxygen Delivery Method Room Air Oxygen Flow Rate 0 Narrative Exam Narrative: NAD, alert and oriented. Fluent speech. Lungs are clear, normal rate and effort. Heart is regular, no murmur gallop or rub. Abdomen is soft, non distended. Extremities are free of edema. Objective Labs 08/14/24 05:45 08/14/24 05:45 [facility] Medical History Bladder calculus Calcification of prostate History of radiation therapy Urinary incontinence Lower urinary tract symptoms Hx of chest pain Coronary artery disease Acute non-ST elevation myocardial infarction (NSTEMI) Headache Chronic low back pain with sciatica Paresthesias in left hand CVA (cerebral vascular accident) Hypertension Hairy cell leukemia Parkinsons disease Surgical History S/P deep brain stimulator placement (09/16/14) S/P TURP History of tonsillectomy Social History marital status: number of children: 2 household members: spouse occupational status: previously employed and other Smoking Status: Former smoker Tobacco: How many years used: 5 alcohol intake: never substance use type: does not use caffeine: No Type(s) of exercise: walking frequency: other Assessment & Plan Assessment & Plan narrative: 1. Chest Pain, present on admission and improved. - known mild, non-obstructive CAD. - placed in observation, on telemetry - stress test, partially complete. Needs resting scan on Saturday. - continue statin, Imdur 2. HTN, present on admission and stable. - Norvasc, Losartan 3. Parkinson's Disease, present on admission and stable. - s/p deep brain stimulator - Sinemet 4. Urinary Incontinence, present on admission and stable. - s/p TURP for Ca - condom catheter PLAN: -complete nuclear stress resting phase when able. -Ambulate -telemetry -continue chronic BP medications. DVT prophylaxis - Lovenox Full code ROMELIA 08/17. Time-Based Coding :: [TOTAL MINUTES] spent with patient and on the chart (including review of chart, obtaining history, exam, reviewing outside data, placing orders, documenting exam and treatment plan, and counseling patient) on [DATE].
[2024-08-16] MEDS: LOSARTAN 50 MG TABLET PO ×2 (09:55→19:56)
[2024-08-16] MEDS: ENOXAPARIN 40 MG/0.4 ML SYRINGE SUBCUT (09:55)
[2024-08-16] MEDS: AMLODIPINE 5 MG TABLET 7.5 MG PO (09:55)
[2024-08-16] MEDS: ATORVASTATIN 20 MG TABLET 40 MG PO (09:55)
[2024-08-16] MEDS: CARBIDOPA-LEVODOPA 25/100 TABLET 1 EACH PO ×2 (09:55→19:56)
[2024-08-16] MEDS: ISOSORBIDE MONONITRATE ER 30 MG TABLET PO (09:58)
[2024-08-16] MEDS: ACETAMINOPHEN 325 MG TABLET 650 MG PO ×2 (12:58→19:25)
[2024-08-16] MEDS: ONDANSETRON 4 MG/2 ML INJ IV (17:09)
[2024-08-17] VITALS: BP 164/73; PULSE 83; TEMP 36.3; O2SAT 97
[2024-08-17 04:00] VITALS: BP 166/82; PULSE 78; RESP 20; TEMP 36.2; O2SAT 92
[2024-08-17] MEDS: CARBIDOPA-LEVODOPA ER 50/200 TABLET 1 EACH PO ×2 (06:24→12:56)
[2024-08-17 08:00] VITALS: BP 158/79; PULSE 70; RESP 18; TEMP 36; O2SAT 93
[2024-08-17 09:01] VITALS: BP 158/79; PULSE 70
[2024-08-17] MEDS: ENOXAPARIN 40 MG/0.4 ML SYRINGE SUBCUT (09:01)
[2024-08-17] MEDS: LOSARTAN 50 MG TABLET PO (09:01)
[2024-08-17] MEDS: ISOSORBIDE MONONITRATE ER 30 MG TABLET PO (09:01)
[2024-08-17] MEDS: AMLODIPINE 5 MG TABLET 7.5 MG PO (09:01)
[2024-08-17] MEDS: ATORVASTATIN 20 MG TABLET 40 MG PO (09:01)
[2024-08-17] MEDS: CARBIDOPA-LEVODOPA 25/100 TABLET 1 EACH PO ×2 (09:02→17:19)
[2024-08-17 12:00] VITALS: BP 115/58; PULSE 73; RESP 18; TEMP 36; O2SAT 93
--- NOTE | 2024-08-17 15:42 | CM.DPC ---
DCP Cont: Per MD, pt to have second part of stress test today and pending results likely could d/c home this evening. Per dye colorist dyer, pt completed his stress test and now waiting for results to be read, still not read as of 1544. Plan: SW to follow for stress test results to determine discharge tonight vs need for more medical intervention. ACE Tijerina
--- NOTE | 2024-08-17 16:57 | PM.DS.1 ---
History of Present Illness History of Present Illness Chief complaint: CP/palpitations Narrative: From night doctor: 79 y/o with PMH of CAD, NSTEMI, had an episode of chest pain at home, while watching a TV, he took NTG which helped but it took longer then before. He had prior similar episodes, some of which were ending with ED visits, such as on 06/23. On admission hypertensive. Without additional complaints, denies SOB, diaphoresis, nausea, dizziness. EKG w/o acute ischemic changes, 2 troponins WNR. Cardiology consulted from the ER, Dr Hunt, recommending stress test. S: The patient has a somewhat vague history of intermittent chest pain over the past period of time. He notes that his more frequent and perhaps more severe. He describes a pressure in his sternum. He notes it has not clearly associated with exertion and. It has also not clearly pleuritic positional in nature. He denies any associated symptoms such as dyspnea, or nausea, or diaphoresis. He he was followed by Dr. Regalado, [facility]. They report an angiogram in the past which is said to be nonobstructive. He denies recent stress testing. He was unable to walk for 10 minutes briskly. Discharge Providers Provider Date of admission: 08/14/24 02:50 Discharge Date: 08/17/24 Primary care physician: Anson Benitez MD Consults: None. Discharge provider: Emory Engel MD Summary Hospital Course Discharge Diagnosis: 1. Chest Pain, present on admission and improved. No evidence of cardiac ischemia. 2. HTN, present on admission and stable. 3. Parkinson's Disease, present on admission and stable. 4. Urinary Incontinence, present on admission and stable. Hospital Course: He was admitted with atypical chest pain which is chronic for him. Recently he was had more frequent episodes. He has a DBS in place for his Parkinson's in wonders if this generator has not influence on his pain. The patient had a stress test ordered which turned into a 2 day study that started on Saturday. The patient had waited until Saturday to have the resting study. This is read as low risk with the inferior artifact. The patient had normal troponins and telemetry while in the hospital. He would little or no chest pain while in the hospital. The patient sees Dr. Regalado and Cardiology, he did have an angiogram in 2021 which revealed minimal coronary artery disease. He was asked to follow up with Dr. Regalado and I will send an electronic message to help expedite this. Status at Discharge Cognitive/behavioral status at discharge: oriented Functional status at discharge: uses cane/walker Overall status at discharge: patient is back to baseline Time Spent with Patient Time spent: Greater than 30 minutes Exam Vital Signs (past 8 hours): - 08/17/24 09:01 08/17/24 12:00 Temperature 96.8 F L Pulse Rate 70 73 Respiratory Rate 18 Blood Pressure 158/79 H 115/58 L Pulse Oximetry 93 Oxygen Delivery Method Room Air Oxygen Flow Rate 0 Narrative Exam Narrative: NAD, alert and oriented. Fluent speech. Lungs are clear, normal rate and effort. Heart is regular, no murmur gallop or rub. Abdomen is soft, non distended. Extremities are free of edema. Objective ECG Impression: NSR, no acute ST elevations or depressions. Imaging Multiple Studies:: Radiologist's impression: Myocardial perfusion scan: 1. Probable normal or low risk myocardial perfusion study 2. Subtle, predominantly fixed, slightly reversible perfusion defect in the inferior wall, most likely reflecting diaphragmatic attenuation. There is no compelling evidence for any significant myocardial ischemia or previous myocardial infarction. 3. Normal left ventricular systolic function without any focal wall motion abnormality. While the TID ratio is mildly increased, this is nonspecific with the use of pharmacologic vasodilator stress. 4. No angina or significant ECG changes of ischemia, although very subtle ST-segment sagging. There were no arrhythmias. 5. Compared to the previous myocardial perfusion study from 10/29/2022, his perfusion images appear identical, although previously with a more significant inferior defect on the resting images, again consistent with diaphragmatic attenuation. His previous ejection fraction was unable to be calculated. Echo: The left ventricle is normal in size and wall thickness. The ejection fraction is estimated to be 60-65%. The right ventricle grossly appears normal in size with probable normal systolic function. The right ventricular systolic pressure is estimated to be at least 23 mmHg based on an estimated right atrial pressure of 3 mm Hg. The left atrium is moderately dilated. There is mild to moderate aortic stenosis. The aortic valve area is 1.6 centimeters squared by planimetry. The calculated aortic valve area is 1.4 cm2. The peak aortic velocity is 2.1 m/sec. The peak aortic velocity on the previous exam was 1.9 m/sec. There is mild to moderate aortic regurgitation. Chest x-ray: No acute radiographic abnormality on this limited single view study. Labs 08/14/24 05:45 08/14/24 05:45 [facility] Medical History Bladder calculus Calcification of prostate History of radiation therapy Urinary incontinence Lower urinary tract symptoms Hx of chest pain Coronary artery disease Acute non-ST elevation myocardial infarction (NSTEMI) Headache Chronic low back pain with sciatica Paresthesias in left hand CVA (cerebral vascular accident) Hypertension Hairy cell leukemia Parkinsons disease Surgical History S/P deep brain stimulator placement (09/16/14) S/P TURP History of tonsillectomy Social History marital status: number of children: 2 household members: spouse occupational status: previously employed and other Smoking Status: Former smoker Tobacco: How many years used: 5 alcohol intake: never substance use type: does not use caffeine: No Type(s) of exercise: walking frequency: other Discharge Assessment & Plan Assessment and Plan Assessment: 1. Chest Pain, present on admission and improved. 2. HTN, present on admission and stable. 3. Parkinson's Disease, present on admission and stable. 4. Urinary Incontinence, present on admission and stable. Plan of Treatment: Discharge, no change to medications. Follow up with Cardiology, Dr. Regalado, whichin the next 2 weeks. Discharge Plan Discharge Plan Patient Disposition: Home Provider Discharge Comment: Low risk stress test with nuclear scan. Stable for discharge home with close cardiology follow up. Discharge orders & Medications Prescriptions: Continued metoprolol succinate 50 mg tablet extended release 24 hr 50 mg PO BID Qty: 90 1RF (DME) Disabled Parking Permit See Rx Instructions .ROUTE .MEDSUPPLY Qty: 1 0RF Rx Instructions: I find this patient to be medically disabled and qualified for Disabled Parking as indicated and signed on the accompanying Disabled Parking Application for Individuals. losartan 50 mg tablet 50 mg PO BID Qty: 180 3RF carbidopa-levodopa 25-100 mg tablet,disintegrating 25 - 100 tab PO QID Patient Comments: Pt takes at 0800/1200/1700/2100 atorvastatin 40 mg tablet 40 mg PO DAILY isosorbide mononitrate 30 mg tablet extended release 24 hr 30 ea PO DAILY Patient Comments: TAKE ONE TABLET BY MOUTH ONE TIME DAILY acetaminophen [Tylenol] 325 mg Tablet 325 mg PO Q6H PRN (Reason: Pain (Scale Score 1-3)) carbidopa-levodopa 50-200 mg Tablet Extended Release 1 tab PO QID Patient Comments: Pt takes 0800/1200/0/2099 Rx Instructions: divide evenly over waking hours amlodipine 5 mg tablet 10 mg PO BID Rx Instructions: increase to 7.5mg daily if blood pressure above 140/90 daily. Medication counseling provided by Pharmacist: No Follow up/Referrals: Anson Benitez MD [Primary Care Provider] - Discharge Health Status Multidrug resistant organism: No MDRO Diet/Activity/Treatments Diet: Regular Visit Report/Discharge Packet Instructions: Caregiver Stress: The Impact of Chronic Disease on the Family, DI for Atypical Chest Pain Stand Alone Forms: Patient Portal/API Discharge Data Primary Care Provider: Anson Benitez Attending Provider: Mitchell Hogan [facility] Date/Time: 08/14/24 02:50
--- NOTE | 2024-08-18 09:32 | DI.NM.S_ITS ---
DATE OF SERVICE: 08/14/2024 NUCLEAR CARDIOLOGY MYOCARDIAL PERFUSION STUDY PROCEDURE: Pharmacologic vasodilator stress and rest myocardial perfusion imaging with gating to assess ejection fraction and regional wall motion. ORDERING PROVIDER: Emory Engel MD. INDICATIONS: The patient is a 79-year-old male with a previous myocardial infarction and Parkinson disease, admitted with an episode of atypical chest discomfort. CARDIAC STRESS: Per protocol, 0.4 mg regadenoson was infused with a normal hemodynamic response with development of mild dyspnea, but no chest discomfort. His resting ECG is normal and there are no significant ST-segment shifts with stress, although very subtle sagging of the ST- segment in leads V5 and V6 that does not meet criteria for ischemia. He had no arrhythmias. Per protocol, 27.5 mCi of technetium-99m Myoview was injected and he was imaged 15 minutes later using a gated SPECT acquisition protocol. Three days later, while at rest, he was injected with 23.0 mCi of technetium-99m Myoview and imaged 15 minutes later, again using a gated SPECT acquisition protocol. FINDINGS: RAW DATA: There is fairly good myocardial tracer uptake although some subdiaphragmatic tracer activity noted, particularly on the post-stress images. The lung/heart ratio is normal at 0.29. While the TID ratio is mildly elevated at 1.44, this is nonspecific with pharmacologic vasodilator stress. QUANTITATED GATED SPECT: Post-stress ejection fraction is 71% without any focal wall motion abnormality. Resting ejection fraction is also 71% with a normal resting end-diastolic volume of 97 mL. MYOCARDIAL PERFUSION SCAN: Post-stress supine images show a fairly normal myocardial perfusion pattern although with a very subtle defect in the proximal inferior wall in a pattern consistent with diaphragmatic attenuation and perhaps accentuated by the subdiaphragmatic tracer activity. There are no prone images available because of the patient's inability to lie prone to assess for diaphragmatic attenuation. The resting images show a similar perfusion pattern with perhaps very subtle improvement in the proximal inferior wall but no significant improvement to suggest reversibility.. IMPRESSION: 1. Probable normal or low risk myocardial perfusion study 2. Subtle, predominantly fixed, slightly reversible perfusion defect in the inferior wall, most likely reflecting diaphragmatic attenuation. There is no compelling evidence for any significant myocardial ischemia or previous myocardial infarction. 3. Normal left ventricular systolic function without any focal wall motion abnormality. While the TID ratio is mildly increased, this is nonspecific with the use of pharmacologic vasodilator stress. 4. No angina or significant ECG changes of ischemia, although very subtle ST-segment sagging. There were no arrhythmias. 5. Compared to the previous myocardial perfusion study from 10/29/2022, his perfusion images appear identical, although previously with a more significant inferior defect on the resting images, again consistent with diaphragmatic attenuation. His previous ejection fraction was unable to be calculated. Olu Rivas - RS/fn/ID doc#: [id number]/job#: [id number] dd: 08/17/2024 16:36:00 dt: 08/17/2024 20:59:00 DICTATING MD/COPIES TO: Julio Fairbanks MD; Emory Engel MD COPIES MNE: MARVA;
== END 2024-08-17 17:20 | disposition home or self-care (01) ==
LOC: ED 08-14 02:33 → AC 08-14 02:51
PROVIDERS: Admitting Provider Internal Medicine; Emergency Provider Emergency Medicine; Family Provider Family Medicine; PCP Family Medicine; Referring Provider Emergency Medicine; Visit Provider Internal Medicine
DX: R07.9 Chest pain, unspecified (principal); I25.10 Atherosclerotic heart disease of native coronary artery without angina pectoris; I10 Essential (primary) hypertension; N39.41 Urge incontinence; C91.41 Hairy cell leukemia, in remission; I25.2 Old myocardial infarction; G20.A1 Parkinson's disease without dyskinesia, without mention of fluctuations
CPT/HCPCS: 36415; 71045; 78452; 80048; 80053; 82550; 83690; 83735; 83880; 84484; 85025; 85610; 85730; 93017; 93306; 96372; 96374; 99284; G0378; A9502; J1650; J2405; J2785

== ENCOUNTER 2024-09-13 23:54 | Emergency (ER) | payer MEDICARE, OTHER, SELFPAY ==
[2024-08-14 03:30] VITALS: BMI 24.3
[2024-09-14 00:02] VITALS: PULSE 83; O2SAT 95
[2024-09-14 00:08] VITALS: BP 184/87; PULSE 82; RESP 16; TEMP 36.6; O2SAT 95; BMI 22.9
--- NOTE | 2024-09-14 00:20 | ED.HA ---
HPI - Headache General Chief Complaint: Headache Stated Complaint: throbbing pain behind left eye Time Seen by Provider: 09/14/24 00:03 Source: patient and family Mode of arrival: Ambulatory Limitations: no limitations History of Present Illness HPI Narrative: Patient is a 79-year-old male who has a history of Parkinson's disease and areas cell leukemia he was here for evaluation of discomfort behind his left eye. He states that symptoms started approximately 1 hour prior to arrival here in the ER. He was fairly sudden onset. He did take Tylenol. He now states his headache is approximately 80% better with the Tylenol. No vision changes. No history of glaucoma. Prior surgeries of the eye. He does not have any sinus congestion or sore throat. He did take his long-acting Parkinson's meds this evening. Related Data Home Medications Medication Instructions Recorded Confirmed acetaminophen 325 mg tablet 325 mg PO Q6H PRN Pain (Scale 06/26/18 09/14/24 (Tylenol) Score 1-3) carbidopa 25 mg-levodopa 100 mg 25 - 100 tab PO QID parkinson's 07/14/20 09/14/24 disintegrating tablet symptoms amlodipine 5 mg tablet 10 mg PO BID 10/27/22 09/14/24 atorvastatin 40 mg tablet 40 mg PO DAILY 02/15/23 09/14/24 isosorbide mononitrate 30 mg 30 ea PO DAILY 02/15/23 09/14/24 tablet,extended release 24 hr carbidopa ER 50 mg-levodopa 200 mg 1 tab PO QID 08/14/24 09/14/24 tablet,extended release Previous Rx's Medication Instructions Recorded losartan 50 mg tablet 50 mg PO BID #180 tabs 02/02/21 metoprolol succinate 50 mg 50 mg PO BID #90 tabs 02/16/22 tablet,extended release 24 hr Disabled Parking Permit #1 ea 03/31/24 Allergies Allergy/AdvReac Type Severity Reaction Status Date / Time adhesive tape Allergy Intermediate Blister Verified 08/03/24 15:10 cefuroxime Allergy Mild rash/ Verified 08/03/24 15:10 itching codeine [CODEINE] Allergy Mild NAUSEA Verified 08/03/24 15:10 clindamycin AdvReac N/V Verified 08/03/24 15:10 Review of Systems Review of Systems Narrative: See HPI Patient History Medical History Bladder calculus Calcification of prostate History of radiation therapy Urinary incontinence Lower urinary tract symptoms Hx of chest pain Coronary artery disease Acute non-ST elevation myocardial infarction (NSTEMI) Headache Chronic low back pain with sciatica Paresthesias in left hand CVA (cerebral vascular accident) Hypertension Hairy cell leukemia Parkinsons disease Surgical History S/P deep brain stimulator placement (09/16/14) S/P TURP History of tonsillectomy Social History marital status: number of children: 2 household members: spouse occupational status: previously employed and other Smoking Status: Former smoker Tobacco: How many years used: 5 alcohol intake: never substance use type: does not use caffeine: No Type(s) of exercise: walking frequency: other Smoking Status: Former smoker alcohol intake frequency: a few times a month Substance Use Type: does not use Exam Initial Vital Signs Initial Vital Signs: Vital Signs Pulse Rate 83 09/14/24 00:02 Pulse Oximetry 95 09/14/24 00:02 Const General: cooperative, comfortable and No ill appearing HENID Head: normal to inspection and normocephalic Face and sinus: normal facial exam [facility] Other: No discomfort with palpation over the left temporal artery Eyes General: Yes appearance normal, both eyes and all related structures Eyelids: eyelids normal Pupils: PERRL EOM: EOM intact bilaterally Other: Intra-ocular pressure left eye is 15, intra-ocular pressure right ice 14 Skin General: no rashes or lesions noted Neuro General: patient alert, patient awake and moves all extremities Extrem General: normal to inspection Course Orders Ordered: ED Orders 09/14/24 00:21 CT head/brain wo con Stat Discontinued Medications Proparacaine HCl (Proparacaine 0.5% Ophth Zarina) 1 drops EYE-LEFT NOW ONE Stop: 09/14/24 00:05 Last Admin: 09/14/24 00:36 Dose: 1 drop Documented By: YASMEEN Vital Signs Vital signs: Vital Signs - 8 hr 09/14/24 00:02 09/14/24 00:08 09/14/24 00:30 Temperature 98 F Pulse Rate 83 82 79 Respiratory Rate 16 Blood Pressure 184/87 H Pulse Oximetry 95 95 95 Oxygen Delivery Method Room Air 09/14/24 00:30 Temperature Pulse Rate Respiratory Rate Blood Pressure 159/74 H Pulse Oximetry Oxygen Delivery Method MDM - Headache Imaging Data CT scan - head: Radiologist's Impression: PROCEDURE: CT HEAD/BRAIN WO CON INDICATIONS: L congregational headache TECHNIQUE: Noncontrast 4.5 mm thick angled axial sections acquired from the foramen magnum to the vertex, with coronal and sagittal reformats. For radiation dose reduction, the following was used: automated exposure control, adjustment of mA and/or kV according to patient size. COMPARISON: [facility], CT, CT HEAD/BRAIN WO CON, 03/20/2024, 14:48. [facility], CT, CT HEAD/BRAIN WO CON, 10/26/2022, 21:02. FINDINGS: Image quality: Diagnostic. CSF spaces: Basal cisterns are patent. No extra-axial fluid collections. The ventricles are symmetric in size and shape. Brain: No acute intracranial hemorrhage or mass effect. Bilateral thalamic neural stimulator devices are seen in stable positions. There is cerebral volume loss for age, with resultant ventricular and sulcal prominence. There are periventricular and deep white matter chronic small vessel ischemic changes. There is intracranial internal carotid artery atherosclerosis. Skull and face: Calvarium and visualized facial bones appear intact, without suspicious lesions. Sinuses: Mild partial opacification of right posterior ethmoid air cells. Visualized sinuses and mastoids are otherwise clear. IMPRESSION: No acute intracranial pathology. [facility] Narrative Medical decision making narrative: He reports approximately 80% improvement of his headache after taking Tylenol. His ocular exam is unremarkable. Intra-ocular pressure is unremarkable. No tenderness over the temporal artery. No skin rashes. No URI like symptoms. Head CT is unremarkable as well. Given the improvement of his symptoms we will hold on further workup for now. Recommended a follow-up dose of Tylenol if needed. He was given return precautions. He expressed understanding. Discharge Plan Departure Patient Disposition: Home Clinical Impression: Headache Instructions: DI for Headache Activity Restrictions/Additional Instructions: Recommend that you continue to take all of your medications as directed. You can take another dose of Tylenol if your headache starts to return. If you develop new symptoms please return to the emergency department for further evaluation. Prescriptions: No Action metoprolol succinate 50 mg tablet extended release 24 hr 50 mg PO BID Qty: 90 1RF (DME) Disabled Parking Permit See Rx Instructions .ROUTE .MEDSUPPLY Qty: 1 0RF Rx Instructions: I find this patient to be medically disabled and qualified for Disabled Parking as indicated and signed on the accompanying Disabled Parking Application for Individuals. losartan 50 mg tablet 50 mg PO BID Qty: 180 3RF carbidopa-levodopa 25-100 mg tablet,disintegrating 25 - 100 tab PO QID Patient Comments: Pt takes at 0800/1200/1700/2100 atorvastatin 40 mg tablet 40 mg PO DAILY isosorbide mononitrate 30 mg tablet extended release 24 hr 30 ea PO DAILY Patient Comments: TAKE ONE TABLET BY MOUTH ONE TIME DAILY acetaminophen [Tylenol] 325 mg Tablet 325 mg PO Q6H PRN (Reason: Pain (Scale Score 1-3)) carbidopa-levodopa 50-200 mg Tablet Extended Release 1 tab PO QID Patient Comments: Pt takes 0800/1200/1700/2100 Rx Instructions: divide evenly over waking hours amlodipine 5 mg tablet 10 mg PO BID Rx Instructions: increase to 7.5mg daily if blood pressure above 140/90 daily. Referrals: Anson Benitez MD [Primary Care Provider] - Stand Alone Forms: Patient Portal/API
[2024-09-14 00:30] VITALS: BP 159/74; PULSE 79; O2SAT 95
[2024-09-14] MEDS: PROPARACAINE 0.5% OPHTH SOL 1 DROPS EYE-LEFT (00:36)
[2024-09-14 01:10] VITALS: BP 154/76; PULSE 68; RESP 16; O2SAT 96
== END 2024-09-14 01:10 | disposition home or self-care (01) ==
PROVIDERS: Emergency Provider Emergency Medicine; Family Provider Family Medicine; PCP Family Medicine
DX: R51.9 Headache, unspecified (principal); G20.A1 Parkinson's disease without dyskinesia, without mention of fluctuations
CPT/HCPCS: 70450; 99283; 99284

== ENCOUNTER → 2024-09-18 09:35 | Outpatient (CLI) | payer MEDICARE, OTHER, SELFPAY ==
[2024-08-14 03:30] VITALS: BMI 24.3
[2024-09-18 09:49] LABS: Appearance Urine UA SL CLOUDY; Bilirubin Urine UA NEGATIVE (NEGATIVE); Color Urine UA YELLOW; Glucose Urine UA NEGATIVE (Negative); Ketones Urine UA TRACE (NEGATIVE); Leukocyte Esterase Urine UA TRACE (NEGATIVE); Nitrite Urine UA NEGATIVE (Negative); Occult Blood Urine UA NEGATIVE (Negative); Protein Urine UA TRACE (Negative); Urobilinogen Urine UA 0.2 E.U./dL (0.2); pH Urine UA 6.5 (4.5-8.0)
[2024-09-18 09:52] LABS: Urine Volume 10mL (spun)
[2024-09-18 09:55] LABS: Bacteria Urine Many (>30); RBC Urine 1-5/HPF (0-5/HPF); Squamous Epithelial Cell Urine None Seen (0-5/HPF); WBC Urine 5-10/HPF (0-5/HPF)
[2024-09-18 09:56] LABS: Culture Indicated Urine Specimen Cultured
== END ==
PROVIDERS: Family Provider Family Medicine; PCP Family Medicine; Referring Provider Urology; Visit Provider Urology
DX: N39.41 Urge incontinence (principal); R39.9 Unspecified symptoms and signs involving the genitourinary system
CPT/HCPCS: 81001; 87077; 87086

== ENCOUNTER 2024-10-27 08:15 | Outpatient (RCR) | payer MEDICARE, OTHER, SELFPAY ==
[2024-02-11 15:49] VITALS: BMI 22.9
[2024-08-14 03:30] VITALS: BMI 24.3
--- NOTE | 2024-09-03 16:00 | PT.OIE ---
Current Diagnoses Parkinson's disease with dyskinesia, without mention of fluctuations (09/03/24) Urge incontinence (09/03/24) Pelvic muscle wasting (09/03/24) Past Medical History (Last Reviewed 08/14/24 @ 07:44 by Emory Engel MD) Acute non-ST elevation myocardial infarction (NSTEMI) Bladder calculus Calcification of prostate Chronic low back pain with sciatica Coronary artery disease CVA (cerebral vascular accident) Hairy cell leukemia Headache History of radiation therapy Hx of chest pain Hypertension Lower urinary tract symptoms Paresthesias in left hand Parkinsons disease Urinary incontinence Past Surgical History (Last Reviewed 08/14/24 @ 07:44 by Emory Engel MD) History of tonsillectomy S/P deep brain stimulator placement (09/16/14) S/P TURP Visit Care Team Role Provider Type Anson Benitez MD Family Provider Physician Primary Care Provider Specialty: Family Practice Address: [address] [place] [address], [facility] Email: [email or web address] Bryan Hall MD Attending Provider Physician Referring Provider Specialty: Urology Address: [address] [place] [address], [facility] Email: [email or web address] Physical Therapy Initial Evaluation PT-OP-A Visit Information Start: 09/03/24 10:48 Freq: Status: Active Protocol: Document 09/03/24 11:30 [facility] (Rec: 09/03/24 16:56 [facility] [id number]) Out-Patient Physical Therapy Visit Information Visit Information Visit Type Initial Evaluation Visit Start Time 11:30 Visit Stop Time 12:15 Visit Number 1 Evaluation Information Evaluation Date 09/03/24 PT-OP-B Current Condition Start: 09/03/24 10:48 Freq: Status: Active Protocol: Document 09/03/24 11:30 [facility] (Rec: 09/03/24 12:25 [facility] [id number]) Current Condition History of Current Condition Onset Date June 2024 Current Complaints urinary incontinence, urgency, incomplete emptying History of Current Condition pt has a history of TURP procedure due to multiple stones in her bladder The first month after surgery was really hard as he was leaking constantly. After 3-4 month he noted that he was getting a little more control back. He switched to depends but he currently is not using them on a regular basis but uses them if needed. He notes now when he goes he will empty but there is still a dripping afterwards and that is what will cause him to be wet. PT-OP-C Subjective Start: 09/03/24 10:48 Freq: Status: Active Protocol: Document 09/03/24 11:30 [facility] (Rec: 09/08/24 13:50 [facility] [id number]) Patient Questionnaires Pelvic Pain and Urgency/Frequency Patient Symptom Scale Pelvic Pain Score 11 PT-OP-I Pelvic Floor Start: 09/03/24 10:48 Freq: Status: Active Protocol: Document 09/03/24 11:30 [facility] (Rec: 09/08/24 13:50 [facility] [id number]) Pelvic Floor Assessment Urine Pelvic Floor Surgery Yes: TURP Urinary Symptoms Urge Sensation,Hesitancy, Incomplete Emptying Bowel Other Bowel Symptoms pt reports both loss of bowel control at times as well as straining for a bowel movement PT-OP-Q Treatments Start: 09/03/24 10:48 Freq: Status: Active Protocol: Document 09/03/24 11:30 [facility] (Rec: 09/03/24 16:56 [facility] [id number]) Therapeutic Exercises Supine Exercises ball squeeze with pelvic floor contraction Reps/Minutes x 10 reps holding 5 seconds PT-OP-T Assessment and Plan Start: 09/03/24 10:48 Freq: Status: Active Protocol: Document 09/03/24 11:30 [facility] (Rec: 09/08/24 13:56 [facility] [id number]) Physical Therapy Assessment Rehab Potential Rehabilitation Potential Good Evaluation Complexity Number of Personal Factors/Comorbidities 1-2 Number of Body Systems Impaired 1-2 Clinical Presentation at Evaluation Stable Impairments Impairments Activity Tolerance,Strength Other Impairments incomplete bladder emptying difficulty starting the stream of urine urgency to void nocturia incontinence Goals 3 Impairment decreased pelvic floor endurance Short Term Goal (STG) Olu is able to sustain a pelvic floor contraction in supine x 10 seconds STG Duration 5 weeks Retirement Goal (LTG) Star is able to sustain a pelvic floor contraction with sit-stand LTG Duration 8 weeks 2 Impairment urinary incontinence Short Term Goal (STG) Olu is educated on pelvic floor strengthening for improved bladder support to decrease urinary leakge STG Duration 4 weeks Artist Suspect Goal (LTG) Olu reports a overall reduction in urinary urge incontinence and is no longer needing depends daily LTG Duration 8 weeks+ 1 Impairment urinary urgency, nocturia, and feeling as if he is unable to fully empty his bladder Short Term Goal (STG) Star is educated on bladder habits and urge deference technique to improving fully voiding and decrease urgency STG Duration 4 weeks Artist Suspect Goal (LTG) Star reports improved ability to fully void and reports decreased urgency being able to void every 2.5 to 3 hours during the day and 1 time per night LTG Duration 8 weeks+ Assessment Summary Assessment Olu is a 79 year old male with chief complaints of urinary urge incontinence, nocturia, and feeling as if he is not fully emptying his bladder. He notes he will try to fully empty and will then feel dripping afterward that causes him to be wet. He has a history of TURP procedure in June 2024. He reports he was leaking constantly after the surgery but after a few months he is doing better but is still noting leaking so would like to work on pelvic floor strengthening. Star has a history of constipation and straining for bowel movements. He also has a past medical history of Parkinsons . With exam today Olu has difficulty sustaining a pelvic floor contraction for more than a few seconds in supine. He fatigues quickly with repetitions and has difficulty with sensation of the anterior pelvic floor. He is a good candidate for PT working on pelvic floor endurance training and core strengthening to help reduce urinary leakage and urgency. Physical Therapy Plan Frequency and Duration Frequency of Treatment 1x/Week Duration of treatment (weeks) 8 Plan of Care Start Date 09/03/24 Plan of Care End Date 10/29/24 Therapeutic Interventions Therapeutic Interventions Home Exercise Program, Neuromuscular Re-education, Self-Care/Home Management, Therapeutic Exercises Next Visit Focus/Plan Next Note Type Treatment Note Next Visit Plan urge deference technique, bladder retraining, pelvic floor endurance training
--- NOTE | 2024-09-10 13:59 | PT.OTN ---
Current Diagnoses Parkinson's disease with dyskinesia, without mention of fluctuations (09/10/24) Urge incontinence (09/10/24) Pelvic muscle wasting (09/10/24) Physical Therapy Treatment Note PT-OP-A Visit Information Start: 09/03/24 10:48 Freq: Status: Active Protocol: Document 09/10/24 11:31 [facility] (Rec: 09/10/24 12:15 [facility] [id number]) Out-Patient Physical Therapy Visit Information Visit Information Visit Type Treatment Note Visit Start Time 11:30 Visit Stop Time 12:14 Visit Number 2 PT-OP-B Current Condition Start: 09/03/24 10:48 Freq: Status: Active Protocol: Document 09/03/24 11:30 [facility] (Rec: 09/03/24 12:25 [facility] [id number]) Current Condition History of Current Condition Onset Date June 2024 Current Complaints urinary incontinence, urgency, incomplete emptying History of Current Condition pt has a history of TURP procedure due to multiple stones in her bladder The first month after surgery was really hard as he was leaking constantly. After 3-4 month he noted that he was getting a little more control back. He switched to depends but he currently is not using them on a regular basis but uses them if needed. He notes now when he goes he will empty but there is still a dripping afterwards and that is what will cause him to be wet. PT-OP-C Subjective Start: 09/03/24 10:48 Freq: Status: Active Protocol: Document 09/10/24 11:31 [facility] (Rec: 09/10/24 12:15 [facility] [id number]) OP-PT Subjective Patient Comments Patient Comments pt notes he took his medication for the parkinsons and today they have effected him more and he is feeling flush in his cheeks PT-OP-I Pelvic Floor Start: 09/03/24 10:48 Freq: Status: Active Protocol: Document 09/03/24 11:30 [facility] (Rec: 09/08/24 13:50 [facility] [id number]) Pelvic Floor Assessment Urine Pelvic Floor Surgery Yes: TURP Urinary Symptoms Urge Sensation,Hesitancy, Incomplete Emptying Bowel Other Bowel Symptoms pt reports both loss of bowel control at times as well as straining for a bowel movement PT-OP-Q Treatments Start: 09/03/24 10:48 Freq: Status: Active Protocol: Document 09/10/24 11:31 [facility] (Rec: 09/10/24 12:15 [facility] [id number]) Therapeutic Exercises Supine Exercises hip abduction with theraband Reps/Minutes 3 x 10 reps bridges Reps/Minutes 10 reps ball squeeze with pelvic floor contraction Reps/Minutes x 10 reps holding 5 seconds Sitting Exercises seated hip abduction Equipment Used level 2 theraband Reps/Minutes 2 x 10 reps seated ball squeeze with pelvic floor contraction Reps/Minutes x 10 reps PT-OP-T Assessment and Plan Start: 09/03/24 10:48 Freq: Status: Active Protocol: Document 09/10/24 11:31 [facility] (Rec: 09/10/24 12:15 [facility] [id number]) Physical Therapy Assessment Assessment Summary Assessment Exercises were reviewed with Eduar today and I added in bridges. He was shown both in supine and in a seated position. Urge deference technique and bladder retraining were also reviewed with Eduar today. He does note that the medication he is on affects his memory so he was given new handouts of his exercises again today Physical Therapy Plan Frequency and Duration Frequency of Treatment 1x/Week Duration of treatment (weeks) 8 Plan of Care Start Date 09/03/24 Plan of Care End Date 10/29/24 Therapeutic Interventions Therapeutic Interventions Home Exercise Program, Neuromuscular Re-education, Self-Care/Home Management, Therapeutic Exercises Next Visit Focus/Plan Next Note Type Treatment Note Next Visit Plan urge deference technique, bladder retraining, pelvic floor endurance training and work on sit to stand with pelvic floor engagement next visit
--- NOTE | 2024-09-17 17:02 | PT.OTN ---
Current Diagnoses Parkinson's disease with dyskinesia, without mention of fluctuations (09/17/24) Urge incontinence (09/17/24) Pelvic muscle wasting (09/17/24) Physical Therapy Treatment Note PT-OP-A Visit Information Start: 09/03/24 10:48 Freq: Status: Active Protocol: Document 09/17/24 13:49 [facility] (Rec: 09/17/24 14:23 [facility] [id number]) Out-Patient Physical Therapy Visit Information Visit Information Visit Type Treatment Note Visit Start Time 13:50 Visit Stop Time 14:30 Visit Number 3 PT-OP-B Current Condition Start: 09/03/24 10:48 Freq: Status: Active Protocol: Document 09/03/24 11:30 [facility] (Rec: 09/03/24 12:25 [facility] [id number]) Current Condition History of Current Condition Onset Date June 2024 Current Complaints urinary incontinence, urgency, incomplete emptying History of Current Condition pt has a history of TURP procedure due to multiple stones in her bladder The first month after surgery was really hard as he was leaking constantly. After 3-4 month he noted that he was getting a little more control back. He switched to depends but he currently is not using them on a regular basis but uses them if needed. He notes now when he goes he will empty but there is still a dripping afterwards and that is what will cause him to be wet. PT-OP-C Subjective Start: 09/03/24 10:48 Freq: Status: Active Protocol: Document 09/17/24 13:49 [facility] (Rec: 09/17/24 14:23 [facility] [id number]) OP-PT Subjective Patient Comments Patient Comments pt notes he woke up and he felt like he was behind schedule from the moment he opened his eyes. He feels that if he over extends himself he will fall down. He is going to give a urine sample today after his PT appt . He does feel that he has to push to start the stream to void. PT-OP-I Pelvic Floor Start: 09/03/24 10:48 Freq: Status: Active Protocol: Document 09/03/24 11:30 [facility] (Rec: 09/08/24 13:50 [facility] [id number]) Pelvic Floor Assessment Urine Pelvic Floor Surgery Yes: TURP Urinary Symptoms Urge Sensation,Hesitancy, Incomplete Emptying Bowel Other Bowel Symptoms pt reports both loss of bowel control at times as well as straining for a bowel movement PT-OP-Q Treatments Start: 09/03/24 10:48 Freq: Status: Active Protocol: Document 09/17/24 13:49 [facility] (Rec: 09/17/24 14:23 [facility] [id number]) Therapeutic Exercises Supine Exercises SLR with abdominal bracing Reps/Minutes x 10 reps each side hip abduction with theraband Reps/Minutes 3 x 10 reps bridges Reps/Minutes 10 reps ball squeeze with pelvic floor contraction Reps/Minutes x 10 reps holding 5 seconds Sitting Exercises seated hip abduction Equipment Used level 2 theraband Reps/Minutes 2 x 10 reps seated ball squeeze with pelvic floor contraction Reps/Minutes x 10 reps PT-OP-T Assessment and Plan Start: 09/03/24 10:48 Freq: Status: Active Protocol: Document 09/17/24 13:49 [facility] (Rec: 09/17/24 14:23 [facility] [id number]) Physical Therapy Assessment Goals 3 Impairment decreased pelvic floor endurance Short Term Goal (STG) Olu is able to sustain a pelvic floor contraction in supine x 10 seconds STG Duration 5 weeks Residential Goal (LTG) Star is able to sustain a pelvic floor contraction with sit-stand LTG Duration 8 weeks 2 Impairment urinary incontinence Short Term Goal (STG) Olu is educated on pelvic floor strengthening for improved bladder support to decrease urinary leakge STG Duration 4 weeks Residential Goal (LTG) Olu reports a overall reduction in urinary urge incontinence and is no longer needing depends daily LTG Duration 8 weeks+ 1 Impairment urinary urgency, nocturia, and feeling as if he is unable to fully empty his bladder Short Term Goal (STG) Star is educated on bladder habits and urge deference technique to improving fully voiding and decrease urgency STG Duration 4 weeks Gill [employer]er Goal (LTG) Star reports improved ability to fully void and reports decreased urgency being able to void every 2.5 to 3 hours during the day and 1 time per night LTG Duration 8 weeks+ Assessment Summary Assessment Olu presented with a great amount of fatigue today and wasn't feeling himself. He was headed to give a urine sample following treatment today. I encouraged him to continue hydrating as he gets dehydrated often. Physical Therapy Plan Frequency and Duration Frequency of Treatment 1x/Week Duration of treatment (weeks) 8 Plan of Care Start Date 09/03/24 Plan of Care End Date 10/29/24 Next Visit Focus/Plan Next Note Type Treatment Note Next Visit Plan urge deference technique, bladder retraining, pelvic floor endurance training and work on sit to stand with pelvic floor engagement next visit
--- NOTE | 2024-10-27 16:53 | PT.OTN ---
Current Diagnoses Parkinson's disease with dyskinesia, without mention of fluctuations (10/27/24) Urge incontinence (10/27/24) Pelvic muscle wasting (10/27/24) Physical Therapy Treatment Note PT-OP-A Visit Information Start: 09/03/24 10:48 Freq: Status: Active Protocol: Document 10/27/24 08:15 [facility] (Rec: 10/27/24 16:43 [facility] [id number]) Out-Patient Physical Therapy Visit Information Visit Information Visit Type Treatment Note Visit Start Time 08:15 Visit Stop Time 08:55 Visit Number 4 Evaluation Information Evaluation Date 09/03/24 PT-OP-B Current Condition Start: 09/03/24 10:48 Freq: Status: Active Protocol: Document 09/03/24 11:30 [facility] (Rec: 09/03/24 12:25 [facility] [id number]) Current Condition History of Current Condition Onset Date June 2024 Current Complaints urinary incontinence, urgency, incomplete emptying History of Current Condition pt has a history of TURP procedure due to multiple stones in her bladder The first month after surgery was really hard as he was leaking constantly. After 3-4 month he noted that he was getting a little more control back. He switched to depends but he currently is not using them on a regular basis but uses them if needed. He notes now when he goes he will empty but there is still a dripping afterwards and that is what will cause him to be wet. PT-OP-C Subjective Start: 09/03/24 10:48 Freq: Status: Active Protocol: Document 10/27/24 08:15 [facility] (Rec: 10/27/24 08:59 [facility] [id number]) OP-PT Subjective Patient Comments Patient Comments pt reports he needs new exercise handouts for home This am he reports he woke up dry and that most of the time he is making it to the bathroom when he has a urge to go. Star reports he needs new handouts of his exercises for home Patient Reported Progress Improving PT-OP-I Pelvic Floor Start: 09/03/24 10:48 Freq: Status: Active Protocol: Document 09/03/24 11:30 [facility] (Rec: 09/08/24 13:50 [facility] [id number]) Pelvic Floor Assessment Urine Pelvic Floor Surgery Yes: TURP Urinary Symptoms Urge Sensation,Hesitancy, Incomplete Emptying Bowel Other Bowel Symptoms pt reports both loss of bowel control at times as well as straining for a bowel movement PT-OP-Q Treatments Start: 09/03/24 10:48 Freq: Status: Active Protocol: Document 10/27/24 08:15 [facility] (Rec: 10/27/24 08:59 [facility] [id number]) Therapeutic Exercises Supine Exercises SLR with abdominal bracing Reps/Minutes x 10 reps each side bridges Reps/Minutes 10 reps ball squeeze with pelvic floor contraction Reps/Minutes x 10 reps holding 5 seconds Sitting Exercises seated hip abduction Equipment Used level 2 theraband Reps/Minutes 2 x 10 reps seated ball squeeze with pelvic floor contraction Reps/Minutes x 10 reps Self-Care/Home Management Treatment Education Patient Education Home Exercise Program Other Education urge deference technique was reviewed with Eduar and he was given a additional handout on how to control urgency PT-OP-T Assessment and Plan Start: 09/03/24 10:48 Freq: Status: Active Protocol: Document 10/27/24 08:15 [facility] (Rec: 10/27/24 08:59 [facility] [id number]) Physical Therapy Assessment Goals 3 Impairment decreased pelvic floor endurance Short Term Goal (STG) Olu is able to sustain a pelvic floor contraction in supine x 10 seconds goal met STG Duration 5 weeks Nursing Home Goal (LTG) Star is able to sustain a pelvic floor contraction with sit-stand some progress LTG Duration 8 weeks 2 Impairment urinary incontinence Short Term Goal (STG) Olu is educated on pelvic floor strengthening for improved bladder support to decrease urinary leakge goal met STG Duration 4 weeks Director Human Services Goal (LTG) Olu reports a overall reduction in urinary urge incontinence and is no longer needing depends daily excellent progress LTG Duration 8 weeks+ 1 Impairment urinary urgency, nocturia, and feeling as if he is unable to fully empty his bladder Short Term Goal (STG) Star is educated on bladder habits and urge deference technique to improving fully voiding and decrease urgency STG Duration 4 weeks Director Human Services Goal (LTG) Star reports improved ability to fully void and reports decreased urgency being able to void every 2.5 to 3 hours during the day and 1 time per night good progress LTG Duration 8 weeks+ Assessment Summary Assessment Star's exercises were reviewed with him today and he was given a new handout with his home program. I also reviewed the urge deference technique and he was given a additional handout for that as well. He did mention today that he came straight out of bed to his appointment. About [address] treatment he began having parkinsons tremors that did not allow him to finish the supine exercises. At this point Olu has been educated on a home program for pelvic floor training and does seem that his symptoms have been improved. He will be discharged for PT today to a [facility] Physical Therapy Plan Frequency and Duration Frequency of Treatment 1x/Week Duration of treatment (weeks) 8 Plan of Care Start Date 09/03/24 Plan of Care End Date 10/29/24 Therapeutic Interventions Therapeutic Interventions Home Exercise Program, Neuromuscular Re-education, Self-Care/Home Management, Therapeutic Exercises Discharge Physical Therapy Discharge Comments pt has reached the end of his PT visits and was educated in a HEP
== END 2024-11-19 09:41 | disposition home or self-care (01) ==
LOC: PHYS 08:15
PROVIDERS: Family Provider Family Medicine; PCP Family Medicine; Referring Provider Urology; Visit Provider Urology
DX: N39.41 Urge incontinence (principal); G20.B1 Parkinson's disease with dyskinesia, without mention of fluctuations; N81.84 Pelvic muscle wasting
CPT/HCPCS: 97110; 97535

== ENCOUNTER 2024-11-12 19:28 | Emergency (ER) | payer MEDICARE, OTHER, SELFPAY ==
[2024-08-14 03:30] VITALS: BMI 24.3
[2024-11-12] VITALS (8 sets, daily range): BP systolic 170–236; BP diastolic 75–107; PULSE 66–83; RESP 14–24; TEMP 36.5; O2SAT 95–97; BMI 21.7
--- NOTE | 2024-11-12 19:51 | ED_ITS ---
HPI - General Adult General Chief complaint: Hypertension Stated complaint: see patricio aviles, hx of parkinsons, HBP Time Seen by Provider: 11/12/24 19:49 History of Present Illness HPI narrative: 79-year-old male with history of Parkinson's disease, hypertension, history of deep brain stimulator presents by private vehicle from home for a shaking episode that occurred this evening. Patient states that he would just finished eating dinner when all of a sudden his entire body began to shake severely. He states that when he concentrated he could stop the shaking, but when he was an actively trying to stop the tremors his entire body would begin to shake again. He says that he took 2 of his carbidopa-levodopa tablets and asked his to bring him in for evaluation. On the way to the emergency department the patient told his that he had not had any of his blood pressure medications in over a week. at bedside reports frustration with the patient. He was fiercely independent and still maintains control of his medications, but does appear to have increasing forgetfulness, especially at night. She says that he tells her that he takes his medications, but she was not aware until this evening that he had not been taking his blood pressure medications. Patient currently has a mild tremor around his lips and his hands, no other tremor noted. Related Data Home Medications Medication Instructions Recorded Confirmed acetaminophen 325 mg tablet 325 mg PO Q6H PRN Pain (Scale 06/26/18 11/03/24 (Tylenol) Score 1-3) carbidopa 25 mg-levodopa 100 mg 25 - 100 tab PO QID parkinson's 07/14/20 11/03/24 disintegrating tablet symptoms amlodipine 5 mg tablet 10 mg PO BID 10/27/22 11/03/24 atorvastatin 40 mg tablet 40 mg PO DAILY 02/15/23 11/03/24 isosorbide mononitrate 30 mg 30 ea PO DAILY 02/15/23 11/03/24 tablet,extended release 24 hr carbidopa ER 50 mg-levodopa 200 mg 1 tab PO QID 08/14/24 11/03/24 tablet,extended release Previous Rx's Medication Instructions Recorded losartan 50 mg tablet 50 mg PO BID #180 tabs 02/02/21 metoprolol succinate 50 mg 50 mg PO BID #90 tabs 02/16/22 tablet,extended release 24 hr Disabled Parking Permit #1 ea 03/31/24 Allergies Allergy/AdvReac Type Severity Reaction Status Date / Time adhesive tape Allergy Intermediate Blister Verified 11/03/24 15:04 cefuroxime Allergy Mild rash/ Verified 11/03/24 15:04 itching codeine [CODEINE] Allergy Mild NAUSEA Verified 11/03/24 15:04 clindamycin AdvReac N/V Verified 11/03/24 15:04 Patient History Medical History Nocturnal enuresis Bladder calculus Calcification of prostate History of radiation therapy Urinary incontinence Lower urinary tract symptoms Hx of chest pain Coronary artery disease Acute non-ST elevation myocardial infarction (NSTEMI) Headache Chronic low back pain with sciatica Paresthesias in left hand CVA (cerebral vascular accident) Hypertension Hairy cell leukemia Parkinsons disease Surgical History S/P deep brain stimulator placement (09/16/14) S/P TURP History of tonsillectomy Social History marital status: number of children: 2 household members: spouse occupational status: previously employed and other Smoking Status: Former smoker Tobacco: How many years used: 5 alcohol intake: never substance use type: does not use caffeine: No Type(s) of exercise: walking frequency: other Smoking Status: Former smoker alcohol intake frequency: a few times a month Exam Initial Vital Signs Initial Vital Signs: Vital Signs Pulse Rate 68 11/12/24 19:49 Pulse Oximetry 96 11/12/24 19:49 Const: Awake, alert, no acute distress Cardiac: regular rate, regular rhythm RESP: unlabored, clear bilaterally, no wheezing Skin: Warm, Dry, intact, no rashes Neuro: AO x2, CN II-XII grossly intact, pill-rolling tremor of hands bilaterally, stops with intention Course Orders Ordered: Discontinued Medications Hydralazine HCl (Hydralazine 20 Mg/Ml Vial) 20 mg IV NOW ONE Stop: 11/12/24 20:26 Last Admin: 11/12/24 20:47 Dose: 20 mg Documented By: MJ Vital Signs Vital signs: Vital Signs - 8 hr 11/12/24 21:53 Pulse Rate 83 Respiratory Rate 14 Blood Pressure 170/79 H Pulse Oximetry 97 Oxygen Delivery Method Room Air Medical Decision Making Lab Data 11/12/24 19:46 11/12/24 19:46 Labs: Lab Results 11/12/24 Range/Units 19:46 WBC 5.3 (4.5-11.0) X10^3/uL RBC 4.84 (4.5-5.9) X10^6/uL Hgb 14.9 (13.5-17.5) g/dL Hct 43.5 (41-53) % MCV 89.9 (80-100) fL MCH 30.7 (26-34) PG MCHC 34.2 (30-36) % RDW 13.0 (11.6-14.8) % Plt Count 163 (150-400) X10^3/uL Neut % (Auto) 75.2 H (50-75) % Lymph % (Auto) 12.1 L (25-40) % Yates % (Auto) 8.5 (3-14) % Eos % (Auto) 3.7 (2-4) % Baso % (Auto) 0.5 (0-2) % Neut # (Auto) 4000 (5613-3877) /uL Lymph # (Auto) 600 L (1616-5513) /uL Yates # (Auto) 400 (0-900) /uL Eos # (Auto) 200 (0-450) /uL Baso # (Auto) 0 (0-100) /uL Sodium 134 L (137-145) mmol/L Potassium 4.1 (3.4-5.1) mmol/L Chloride 103 (98-107) mmol/L Carbon Dioxide 28 (22-32) mmol/L BUN 23 H (9-20) mg/dL Creatinine 1.00 (0.66-1.25) mg/dL Estimated GFR > 60 (>60) mL/min BUN/Creatinine Ratio 23.0 H (6-22) Glucose 123 H (80-110) mg/dL Lactate 1.1 (0.7-2.1) mmol/L Calcium 9.2 (8.4-10.2) mg/dL Magnesium 2.2 (1.6-2.3) mg/dL Total Bilirubin 0.8 (0.2-1.3) mg/dL AST 29 (17-59) IU/L ALT 8 (<50) IU/L Alkaline Phosphatase 78 (38-126) U/L Total Protein 7.0 (6.3-8.2) g/dL Albumin 4.0 (3.5-5.0) g/dL Globulin 3.0 (1.7-4.1) g/dL Albumin/Globulin Ratio 1.3 (1.0-2.8) Imaging Data CT scan - head: Radiologist's Impression: PROCEDURE: CT HEAD/BRAIN WO CON INDICATIONS: hx parkinsons, severe worsening tremors TECHNIQUE: Noncontrast 4.5 mm thick angled axial sections acquired from the foramen magnum to the vertex, with coronal and sagittal reformats. For radiation dose reduction, the following was used: automated exposure control, adjustment of mA and/or kV according to patient size. COMPARISON: [facility], CT, CT HEAD/BRAIN WO CON, 09/14/2024, 0:27. FINDINGS: Image quality: Diagnostic. CSF spaces: Basal cisterns are patent. No extra-axial fluid collections. The ventricles are symmetric in size and shape. Brain: No intracranial bleeds or masses. There is cerebral volume loss for age, with resultant ventricular and sulcal prominence. There are periventricular and deep white matter chronic small vessel ischemic changes. There is intracranial internal carotid artery atherosclerosis. Thalamus neural stimulator leads are stable. Skull and face: Calvarium and visualized facial bones appear intact, without suspicious lesions. Sinuses: Visualized sinuses and mastoids are clear. IMPRESSION: No acute intracranial pathology. Dictated by: Kalyan Stanford M.D. on 11/12/2024 at 20:37 Approved by: Kalyan Stanford M.D. on 11/12/2024 at 20:38 [facility] Narrative Medical decision making narrative: Episode of severe tremor and shaking at home. Currently has mild tremor, but patient does state that he took 2 of his Sinemet at home before coming in. His states that he was in charge of his medications, but he has not been taking them as prescribed. He told his that he took his Sinemet today, but also states that in the evenings patient was very forgetful. I highly suspect that patient's symptoms and presentation today are due to medication noncompliance. Noted to be very hypertensive on arrival, he was not been taking any of his blood pressure medications in the last week. states that they are waiting for a pill organizer to come in from the [place] to help the patient keep track of his medications. Labs, imaging normal. Patient and were again counseled on the importance of medication compliance. Discharge Plan Departure Patient Disposition: Home Clinical Impression: Episode of shaking Instructions: DI for High Blood Pressure Activity Restrictions/Additional Instructions: Make sure that you take all of your medications as described in the paper you have. Follow up with your primary care doctor. Prescriptions: No Action metoprolol succinate 50 mg tablet extended release 24 hr 50 mg PO BID Qty: 90 1RF (DME) Disabled Parking Permit See Rx Instructions .ROUTE .MEDSUPPLY Qty: 1 0RF Rx Instructions: I find this patient to be medically disabled and qualified for Disabled Parking as indicated and signed on the accompanying Disabled Parking Application for Individuals. losartan 50 mg tablet 50 mg PO BID Qty: 180 3RF carbidopa-levodopa 25-100 mg tablet,disintegrating 25 - 100 tab PO QID Patient Comments: Pt takes at 0800/1200/1700/2100 atorvastatin 40 mg tablet 40 mg PO DAILY isosorbide mononitrate 30 mg tablet extended release 24 hr 30 ea PO DAILY Patient Comments: TAKE ONE TABLET BY MOUTH ONE TIME DAILY acetaminophen [Tylenol] 325 mg Tablet 325 mg PO Q6H PRN (Reason: Pain (Scale Score 1-3)) carbidopa-levodopa 50-200 mg Tablet Extended Release 1 tab PO QID Patient Comments: Pt takes 0800/1200/1700/2100 Rx Instructions: divide evenly over waking hours amlodipine 5 mg tablet 10 mg PO BID Rx Instructions: increase to 7.5mg daily if blood pressure above 140/90 daily. Referrals: Anson Benitez MD [Primary Care Provider] - Stand Alone Forms: Patient Portal/API/Survey
--- NOTE | 2024-11-12 20:00 | PC.NURSE ---
Patient has Parkinson stimulator: Unable to obtain EKG at this time. Calling RT for consult.
--- NOTE | 2024-11-12 20:01 | DI.CT.S_ITS ---
PROCEDURE: CT HEAD/BRAIN WO CON INDICATIONS: hx parkinsons, severe worsening tremors TECHNIQUE: Noncontrast 4.5 mm thick angled axial sections acquired from the foramen magnum to the vertex, with coronal and sagittal reformats. For radiation dose reduction, the following was used: automated exposure control, adjustment of mA and/or kV according to patient size. COMPARISON: [facility], CT, CT HEAD/BRAIN WO CON, 09/14/2024, 0:27. FINDINGS: Image quality: Diagnostic. CSF spaces: Basal cisterns are patent. No extra-axial fluid collections. The ventricles are symmetric in size and shape. Brain: No intracranial bleeds or masses. There is cerebral volume loss for age, with resultant ventricular and sulcal prominence. There are periventricular and deep white matter chronic small vessel ischemic changes. There is intracranial internal carotid artery atherosclerosis. Thalamus neural stimulator leads are stable. Skull and face: Calvarium and visualized facial bones appear intact, without suspicious lesions. Sinuses: Visualized sinuses and mastoids are clear. IMPRESSION: No acute intracranial pathology. Dictated by: Kalyan Stanford M.D. on 11/12/2024 at 20:37 Approved by: Kalyan Stanford M.D. on 11/12/2024 at 20:38
--- NOTE | 2024-11-12 20:08 | PC.NURSE ---
Patient ekg to be done after CT scan. Tech arrived to get imaging prior to ekg.
--- NOTE | 2024-11-12 20:40 | PC.NURSE ---
Due to pt having neuro stimulator on left side of chest/neck/brain, unable to obtain a 12 lead EKG. However, utilizing the [employer] Room Monitor able to obtain all EKG print out of leads I, II, III, V1. Printed for provider, labeled and will send to be scanned into pt records.
[2024-11-12] MEDS: HYDRALAZINE 20 MG/ML VIAL IV (20:47)
[2024-11-12 20:50] LABS: Add Manual Diff / Slide Review NO; Basophils Absolute Auto 0 /uL (0-100); Basophils Percent Auto 0.5 % (0-2); Eosinophils Absolute Auto 200 /uL (0-450); Eosinophils Percent Auto 3.7 % (2-4); Hematocrit 43.5 % (41-53); Hemoglobin 14.9 g/dL (13.5-17.5); Lactate (Lactic Acid) 1.1 mmol/L (0.7-2.1); Lymphocytes Absolute Auto 600 /uL (1100-4500); Lymphocytes Percent Auto 12.1 % (25-40); Mean Corpuscular HGB Conc 34.2 % (30-36); Mean Corpuscular Hemoglobin 30.7 PG (26-34); Mean Corpuscular Volume 89.9 fL (80-100); Monocytes Absolute Auto 400 /uL (0-900); Monocytes Percent Auto 8.5 % (3-14); Neutrophils Absolute Auto 4000 /uL (1500-7000); Neutrophils Percent Auto 75.2 % (50-75); Platelet Count 163 X10^3/uL (150-400); Red Blood Cell Count 4.84 X10^6/uL (4.5-5.9); White Blood Cell Count 5.3 X10^3/uL (4.5-11.0)
[2024-11-12 20:51] LABS: Alanine Aminotransferase 8 IU/L (<50); Albumin Globulin Ratio 1.3 (1.0-2.8); Alkaline Phosphatase 78 U/L (38-126); Aspartate Aminotransferase 29 IU/L (17-59); Bilirubin Total 0.8 mg/dL (0.2-1.3); Blood Urea Nitrogen 23 mg/dL (9-20); Calcium 9.2 mg/dL (8.4-10.2); Carbon Dioxide 28 mmol/L (22-32); Chloride 103 mmol/L (98-107); Estimated Glomerular Filt Rate > 60 mL/min (>60); Glucose 123 mg/dL (80-110); HEMOLYSIS 25 (0-50); Magnesium 2.2 mg/dL (1.6-2.3); Potassium 4.1 mmol/L (3.4-5.1); Sodium 134 mmol/L (137-145)
== END 2024-11-12 21:57 | disposition home or self-care (01) ==
PROVIDERS: Emergency Provider Emergency Medicine; Family Provider Family Medicine; PCP Family Medicine
DX: R25.1 Tremor, unspecified (principal); I10 Essential (primary) hypertension; Z91.148 Patient's other noncompliance with medication regimen for other reason; Z86.69 Personal history of other diseases of the nervous system and sense organs; Z87.891 Personal history of nicotine dependence
CPT/HCPCS: 36415; 70450; 80053; 83605; 83735; 85025; 96374; 99284; J0360

== ENCOUNTER → 2024-12-02 14:15 | Outpatient (CLI) | payer MEDICARE, OTHER, SELFPAY ==
[2024-08-14 03:30] VITALS: BMI 24.3
== END ==
PROVIDERS: Family Provider Family Medicine; PCP Family Medicine; Visit Provider Urology
DX: R39.9 Unspecified symptoms and signs involving the genitourinary system (principal)
CPT/HCPCS: 87077; 87086

== ENCOUNTER 2025-01-21 10:52 | Emergency (ER) | payer MEDICARE, OTHER, SELFPAY ==
[2024-08-14 03:30] VITALS: BMI 24.3
[2025-01-21] VITALS (7 sets, daily range): BP systolic 100–167; BP diastolic 56–78; PULSE 60–65; RESP 14; TEMP 36.1; O2SAT 96–97
--- NOTE | 2025-01-21 11:50 | PC.NURSE ---
Poison control (Angelia)contacted regarding possible medication that he took. Their instructions: Monitor for 2 hours to monitor BP and then discharge with bp monitoring parameters,assist with ambulation at home and close monitoring.
--- NOTE | 2025-01-21 12:02 | PC.NURSE ---
Pt denies any new sx,pt is at baseline per pts . Pt uses a cane daily and is walking with his normal gait.
--- NOTE | 2025-01-21 13:34 | ED.OVERDOSE ---
HPI - Overdose General Chief Complaint: Toxicology Problem Stated Complaint: Per , he may have had an over dose on pills Time Seen by Provider: 01/21/25 12:24 History of Present Illness HPI Narrative: Patient brought here by for possible overdose of the home medications by accident. He had taken all of his medications for today likely sometime last night. Patient on blood pressure medication and Parkinson's medication. He was on scheduled yesterday, and he did take last night's pills in the pill box. However it is possible sometime between last night and this morning he took all of his medications for today. Patient in no distress. Vital signs are stable. Blood pressure noted at time of discharge, he is starting get anxious and irritable. and patient states he gets ?bitchy when he does not take his Parkinson's medications. He gets tingling in the face as well. This is not new. Poison control was contacted by nurse came by nurse Walton, supportive care observation no medications indicated at this time. No reversal medications. Patient has been here nearly 3 hours. Without any adverse reactions. Related Data Home Medications Medication Instructions Recorded Confirmed acetaminophen 325 mg tablet 325 mg PO Q6H PRN Pain (Scale 06/26/18 12/02/24 (Tylenol) Score 1-3) carbidopa 25 mg-levodopa 100 mg 25 - 100 tab PO QID parkinson's 07/14/20 12/02/24 disintegrating tablet symptoms amlodipine 5 mg tablet 10 mg PO BID 10/27/22 12/02/24 isosorbide mononitrate 30 mg 30 ea PO DAILY 02/15/23 12/02/24 tablet,extended release 24 hr carbidopa ER 50 mg-levodopa 200 mg 1 tab PO QID 08/14/24 12/02/24 tablet,extended release Previous Rx's Medication Instructions Recorded losartan 50 mg tablet 50 mg PO BID #180 tabs 02/02/21 metoprolol succinate 50 mg 50 mg PO BID #90 tabs 02/16/22 tablet,extended release 24 hr Disabled Parking Permit #1 ea 03/31/24 Allergies Allergy/AdvReac Type Severity Reaction Status Date / Time adhesive tape Allergy Intermediate Blister Verified 01/21/25 11:05 cefuroxime Allergy Mild rash/ Verified 01/21/25 11:05 itching codeine [CODEINE] Allergy Mild NAUSEA Verified 01/21/25 11:05 clindamycin AdvReac N/V Verified 01/21/25 11:05 Review of Systems Review of Systems Narrative: GENERAL: Negative chills, fatigue, malaise, fever, sweats. HEENT: Negative sinus pain, ear pain, sore throat RESPIRATORY: Negative dyspnea, cough CARDIOVASCULAR: Negative chest pain, palpitations GASTROINTESTINAL: Negative nausea, vomiting, abdominal pain : Negative dysuria, frequency, hematuria MUSCULOSKELETAL: Negative muscle or bony pain SKIN: Negative rash, skin lesions NEUROLOGIC: Negative weakness, numbness Psychiatric: Positive anxiety ROS Unobtainable: All systems reviewed & are unremarkable except as noted in HPI and below Patient History Medical History (Updated 01/21/25 @ 13:36 by Bryan Bee MD) BPH w urinary obs/LUTS Nocturnal enuresis Bladder calculus Calcification of prostate History of radiation therapy Urinary incontinence Lower urinary tract symptoms Hx of chest pain Coronary artery disease Acute non-ST elevation myocardial infarction (NSTEMI) Headache Chronic low back pain with sciatica Paresthesias in left hand CVA (cerebral vascular accident) Hypertension Hairy cell leukemia Parkinsons disease Surgical History S/P deep brain stimulator placement (09/16/14) S/P TURP History of tonsillectomy Social History marital status: number of children: 2 household members: spouse occupational status: previously employed and other Smoking Status: Former smoker Tobacco: How many years used: 5 alcohol intake: never substance use type: does not use caffeine: No Type(s) of exercise: walking frequency: other Smoking Status: Former smoker alcohol intake frequency: a few times a month Exam Narrative Exam Narrative: GENERAL: in no distress, not toxic not dyspneic HEAD: Normocephalic. EYES: Pupils equal round ENT: Mucous membranes moist. NECK: Trachea midline. CARDIOVASCULAR: Regular rate and rhythm RESPIRATORY: Clear to auscultation. Breath sounds equal bilaterally. No wheezes, rales, or rhonchi. GASTROINTESTINAL: Abdomen soft, non-tender EXTREMITIES: No gross deformities. BACK: No flank tenderness. NEURO: AOx4. Clear speech no facial droop light touch intact bilateral face hands with strong equal heavy lift rigger. Negative fast exam. SKIN: Warm and dry PSYCH: Is slightly anxious, is cooperative Initial Vital Signs Initial Vital Signs: Vital Signs Temperature 97.0 F L 01/21/25 11:06 Pulse Rate 61 01/21/25 11:06 Respiratory Rate 14 01/21/25 11:06 Blood Pressure 100/56 L 01/21/25 11:06 Pulse Oximetry 97 01/21/25 11:06 Oxygen Delivery Method Room Air 01/21/25 11:06 Course Vital Signs Vital signs: Vital Signs - 8 hr 01/21/25 11:06 01/21/25 11:15 01/21/25 11:35 Temperature 97.0 F L Pulse Rate 61 61 60 Respiratory Rate 14 Blood Pressure 100/56 L 121/60 123/61 Pulse Oximetry 97 Oxygen Delivery Method Room Air 01/21/25 11:53 01/21/25 13:00 01/21/25 13:15 Temperature Pulse Rate 60 60 65 Respiratory Rate Blood Pressure 122/60 133/64 141/70 H Pulse Oximetry Oxygen Delivery Method MDM - Overdose MDM Narrative Medical decision making narrative: Patient brought here by for possible overdose of the home medications by accident. He had taken all of his medications for today likely sometime last night. Patient on blood pressure medication and Parkinson's medication. He was on scheduled yesterday, and he did take last night's pills in the pill box. However it is possible sometime between last night and this morning he took all of his medications for today. Patient in no distress. Vital signs are stable. Blood pressure noted at time of discharge, he is starting get anxious and irritable. and patient states he gets ?bitchy when he does not take his Parkinson's medications. He gets tingling in the face as well. This is not new. Poison control was contacted by nurse came by nurse Walton, supportive care observation no medications indicated at this time. No reversal medications. Patient has been here nearly 3 hours. Without any adverse reactions. After history and exam, exam is reassuring. Poison control was contacted. No laboratory studies indicated. Supportive care, blood pressure monitoring cardiac monitoring [facility] Medical records reviewed: No recent visit for this complaint Differential considered: Includes but not limited to accidental medication overdose Treatments: None indicated Re-evaluations: 1:40 p.m.. Patient awake alert oriented at baseline. Clear speech. He is anxious and getting irritable. He wants to be discharged home. I reviewed with them discussion with poison control and he can resume his medications today. Vital signs are reassuring. Return precautions reviewed. They desire discharge home. Discussion: Appropriate for discharge home patient hemodynamically stable. No hypotension here. Poison control was contacted. Patient may resume his home medications. Today. Diagnosis: Accidental overdose Naloxone at Discharge Meets criteria for naloxone at discharge?: No Discharge Plan Departure Patient Disposition: Home Clinical Impression: Accidental medication overdose Qualifiers: Encounter type: initial encounter Qualified Code(s): T50.901A - Poisoning by unspecified drugs, medicaments and biological substances, accidental (unintentional), initial encounter Instructions: DI for Safely Taking and Storing Medications -- Adults Activity Restrictions/Additional Instructions: You may resume your medications today. Poison control was contacted. Your exam laboratory studies are reassuring. Please be careful with your medication boxes and taking them at appropriate times. Return if worse if any questions or concerns. Prescriptions: No Action metoprolol succinate 50 mg tablet extended release 24 hr 50 mg PO BID Qty: 90 1RF (DME) Disabled Parking Permit See Rx Instructions .ROUTE .MEDSUPPLY Qty: 1 0RF Rx Instructions: I find this patient to be medically disabled and qualified for Disabled Parking as indicated and signed on the accompanying Disabled Parking Application for Individuals. losartan 50 mg tablet 50 mg PO BID Qty: 180 3RF carbidopa-levodopa 25-100 mg tablet,disintegrating 25 - 100 tab PO QID Patient Comments: Pt takes at 0800/1200/1700/2100 isosorbide mononitrate 30 mg tablet extended release 24 hr 30 ea PO DAILY Patient Comments: TAKE ONE TABLET BY MOUTH ONE TIME DAILY acetaminophen [Tylenol] 325 mg Tablet 325 mg PO Q6H PRN (Reason: Pain (Scale Score 1-3)) carbidopa-levodopa 50-200 mg Tablet Extended Release 1 tab PO QID Patient Comments: Pt takes 0800/1200/1700/2100 Rx Instructions: divide evenly over waking hours amlodipine 5 mg tablet 10 mg PO BID Rx Instructions: increase to 7.5mg daily if blood pressure above 140/90 daily. Referrals: Anson Benitez MD [Primary Care Provider] - Stand Alone Forms: Patient Portal/API/Survey
== END 2025-01-21 13:55 | disposition home or self-care (01) ==
PROVIDERS: Emergency Provider Emergency Medicine; Family Provider Family Medicine; PCP Family Medicine
DX: T50.901A Poisoning by unspecified drugs, medicaments and biological substances, accidental (unintentional), initial encounter (principal); G20.A1 Parkinson's disease without dyskinesia, without mention of fluctuations; I10 Essential (primary) hypertension; Z87.891 Personal history of nicotine dependence
CPT/HCPCS: 99281; 99283

== ENCOUNTER 2025-01-22 21:08 | Emergency (ER) | payer MEDICARE, OTHER, SELFPAY ==
[2024-08-14 03:30] VITALS: BMI 24.3
[2025-01-22] VITALS (9 sets, daily range): BP systolic 165–207; BP diastolic 70–91; PULSE 67–76; RESP 12–26; TEMP 36.4; O2SAT 94–97; BMI 22.9
--- NOTE | 2025-01-22 21:09 | DI.RAD.S_ITS ---
PROCEDURE: XR CHEST 1V INDICATIONS: chest pain TECHNIQUE: One view of the chest was acquired. COMPARISON: [facility], CR, XR CHEST 1V, 08/13/2024, 21:53. [facility], CR, XR CHEST 1V, 06/23/2024, 13:26. FINDINGS: Surgical changes and devices: Left chest wall device. Lungs and pleura: Lungs are clear. No pleural effusions or pneumothorax. Mediastinum: Mediastinal contours appear normal. Heart size is normal. Bones and chest wall: No suspicious bony lesions. Overlying soft tissues appear unremarkable. IMPRESSION: No acute cardiopulmonary abnormality is seen. Dictated by: Ghanshyam Pichardo M.D. on 01/22/2025 at 21:41 Approved by: Ghanshyam Pichardo M.D. on 01/22/2025 at 21:41
--- NOTE | 2025-01-22 21:20 | PC.NURSE ---
Due to DBS EKGs wont read on this patient
[2025-01-22] MEDS: ASPIRIN 81 MG CHEW TAB 324 MG PO (21:23)
[2025-01-22 21:31] LABS: Add Manual Diff / Slide Review NO; Basophils Absolute Auto 0 /uL (0-100); Basophils Percent Auto 0.8 % (0-2); Eosinophils Absolute Auto 200 /uL (0-450); Eosinophils Percent Auto 4.2 % (2-4); Hematocrit 40.9 % (41-53); Hemoglobin 14.2 g/dL (13.5-17.5); Lymphocytes Absolute Auto 700 /uL (1100-4500); Lymphocytes Percent Auto 13.7 % (25-40); Mean Corpuscular HGB Conc 34.7 % (30-36); Mean Corpuscular Hemoglobin 30.6 PG (26-34); Mean Corpuscular Volume 88.2 fL (80-100); Monocytes Absolute Auto 400 /uL (0-900); Monocytes Percent Auto 7.4 % (3-14); Neutrophils Absolute Auto 3800 /uL (1500-7000); Neutrophils Percent Auto 73.9 % (50-75); Platelet Count 173 X10^3/uL (150-400); Red Blood Cell Count 4.64 X10^6/uL (4.5-5.9); Red Cell Distribution Width 13.3 % (11.6-14.8); White Blood Cell Count 5.2 X10^3/uL (4.5-11.0)
[2025-01-22 21:38] LABS: INR 1.1 (0.9-1.3); Prothrombin Time 12.1 SECONDS (9.4-12.5)
[2025-01-22 21:40] LABS: PTT Partial Thromboplastin Tim 31 SECONDS (25.1-36.5)
[2025-01-22 21:48] LABS: Alanine Aminotransferase 7 IU/L (<50); Albumin 3.9 g/dL (3.5-5.0); Albumin Globulin Ratio 1.5 (1.0-2.8); Alkaline Phosphatase 68 U/L (38-126); Aspartate Aminotransferase 18 IU/L (17-59); BUN Creatinine Ratio 21.2 (6-22); Bilirubin Total 0.4 mg/dL (0.2-1.3); Blood Urea Nitrogen 22 mg/dL (9-20); Calcium 9.1 mg/dL (8.4-10.2); Carbon Dioxide 30 mmol/L (22-32); Chloride 101 mmol/L (98-107); Creatine Kinase 33 U/L (55-170); Estimated Glomerular Filt Rate > 60 mL/min (>60); Globulin 2.6 g/dL (1.7-4.1); Glucose 195 mg/dL (80-110); HEMOLYSIS < 15 (0-50); Lipase 90 U/L (23-300); Magnesium 2.2 mg/dL (1.6-2.3); Potassium 3.8 mmol/L (3.4-5.1); Sodium 137 mmol/L (137-145); Total Protein 6.5 g/dL (6.3-8.2)
[2025-01-22 21:59] LABS: NT-proBNP (BNP-Adult 18+) 482 pg/mL (<450); Troponin I < 0.012 ng/mL (0.01-0.034)
--- NOTE | 2025-01-22 22:18 | ED.CHESTPAIN ---
HPI - Chest Pain General Chief Complaint: Chest Pain Stated Complaint: Chest pain Time Seen by Provider: 01/22/25 22:13 Source: patient and family Mode of arrival: Wheelchair History of Present Illness HPI narrative: Patient presents with chest pain that began after dinner last night. The pain initially subsided but then returned. The patient has a history of hypertension and Parkinson's disease, and is currently on multiple medications including amlodipine, atorvastatin, carbidopa, levodopa, losartan, rivastigmine, and zonisamide. The patient has a deep brain stimulator in place. He denies any history of heart attacks or stent placements. The chest pain is not reproducible on examination and there is no overlying redness, erythema, or tenderness. The patient has experienced similar chest pain in the past, which was not attributed to cardiac issues. Medications: Amlodipine, atorvastatin, carbidopa, levodopa, losartan, rivastigmine, zonisamide, isosorbide mononitrate. Related Data Home Medications Medication Instructions Recorded Confirmed acetaminophen 325 mg tablet 325 mg PO Q6H PRN Pain (Scale 06/26/18 12/02/24 (Tylenol) Score 1-3) carbidopa 25 mg-levodopa 100 mg 25 - 100 tab PO QID parkinson's 07/14/20 12/02/24 disintegrating tablet symptoms amlodipine 5 mg tablet 10 mg PO BID 10/27/22 12/02/24 isosorbide mononitrate 30 mg 30 ea PO DAILY 02/15/23 12/02/24 tablet,extended release 24 hr carbidopa ER 50 mg-levodopa 200 mg 1 tab PO QID 08/14/24 12/02/24 tablet,extended release Previous Rx's Medication Instructions Recorded losartan 50 mg tablet 50 mg PO BID #180 tabs 02/02/21 metoprolol succinate 50 mg 50 mg PO BID #90 tabs 02/16/22 tablet,extended release 24 hr Disabled Parking Permit #1 ea 03/31/24 Allergies Allergy/AdvReac Type Severity Reaction Status Date / Time adhesive tape Allergy Intermediate Blister Verified 01/21/25 11:05 cefuroxime Allergy Mild rash/ Verified 01/21/25 11:05 itching codeine [CODEINE] Allergy Mild NAUSEA Verified 01/21/25 11:05 clindamycin AdvReac N/V Verified 01/21/25 11:05 Review of Systems Review of Systems Narrative: Constitutional: Denies fever or chills. Cardiovascular: Reports chest pain, denies history of heart attacks or stent placements. Respiratory: Denies trouble breathing. Gastrointestinal: Reports chest pain after eating dinner. Musculoskeletal: Denies new swelling, no reproducible chest pain on exam. Patient History Medical History (Updated 01/23/25 @ 02:21 by Tim Moon MD) BPH w urinary obs/LUTS Nocturnal enuresis Bladder calculus Calcification of prostate History of radiation therapy Urinary incontinence Lower urinary tract symptoms Hx of chest pain Coronary artery disease Acute non-ST elevation myocardial infarction (NSTEMI) Headache Chronic low back pain with sciatica Paresthesias in left hand CVA (cerebral vascular accident) Hypertension Hairy cell leukemia Parkinsons disease Surgical History S/P deep brain stimulator placement (09/16/14) S/P TURP History of tonsillectomy Social History marital status: number of children: 2 household members: spouse occupational status: previously employed and other Smoking Status: Former smoker Tobacco: How many years used: 5 alcohol intake: never substance use type: does not use caffeine: No Type(s) of exercise: walking frequency: other Smoking Status: Former smoker alcohol intake frequency: a few times a month Exam Narrative Exam Narrative: General: Well appearing, well nourished, in no distress. Skin: No overlying redness, erythema, or tenderness to the left side of the chest. Good turgor, no rash, unusual bruising or prominent lesions. Head: Normocephalic, atraumatic. HEENT: Conjunctiva clear, EOM intact, PERRL, Mucous membranes moist. Neck: Supple, normal ROM. Heart: Regular rate and rhythm, no murmur or gallop or rubs. No reproducible chest pain on exam. Lungs: Clear to auscultation bilaterally. No rales, rhonchi, or wheezes. Abdomen: Soft and nontender. Bowel sounds normal. No mass or hernia. Back: Spine normal without deformity or tenderness, no CVA tenderness. Extremities: No deformities, edema. Peripheral pulses intact. Neurologic: CN 2-12 normal. Normal sensation and motor exam. Psychiatric: Oriented X3. Normal mood and affect. Initial Vital Signs Initial Vital Signs: Vital Signs Temperature 97.5 F L 01/22/25 21:12 Pulse Rate 73 01/22/25 21:12 Respiratory Rate 18 01/22/25 21:12 Blood Pressure 165/75 H 01/22/25 21:12 Pulse Oximetry 95 01/22/25 21:12 Oxygen Delivery Method Room Air 01/22/25 21:12 Course Orders Ordered: ED Orders 01/22/25 23:00 Troponin I Stat Discontinued Medications Aspirin (Aspirin 81 Mg Chew Tab) 324 mg PO NOW ONE Stop: 01/22/25 21:10 Last Admin: 01/22/25 21:23 Dose: 324 mg Documented By: MR Vital Signs Vital signs: Vital Signs - 8 hr 01/22/25 23:30 01/22/25 23:30 01/22/25 23:37 Temperature Pulse Rate 74 76 Respiratory Rate 20 12 Blood Pressure 207/91 H Pulse Oximetry 95 96 01/22/25 23:37 01/23/25 00:00 01/23/25 00:30 Temperature Pulse Rate 76 82 Respiratory Rate 12 25 H Blood Pressure 194/88 H Pulse Oximetry 95 01/23/25 00:49 01/23/25 00:49 01/23/25 01:00 Temperature Pulse Rate 72 Respiratory Rate 20 Blood Pressure 199/97 H 200/95 H Pulse Oximetry 95 01/23/25 01:00 01/23/25 01:30 01/23/25 01:30 Temperature Pulse Rate 72 73 Respiratory Rate 22 20 Blood Pressure 205/95 H Pulse Oximetry 97 95 01/23/25 02:00 01/23/25 02:07 01/23/25 02:07 Temperature Pulse Rate 81 70 Respiratory Rate 43 H 37 H Blood Pressure 206/98 H Pulse Oximetry 95 01/23/25 02:23 01/23/25 02:30 01/23/25 02:32 Temperature 98.0 F Pulse Rate 64 Respiratory Rate 24 Blood Pressure 191/89 H Pulse Oximetry 97 01/23/25 02:32 Temperature Pulse Rate 68 Respiratory Rate 32 H Blood Pressure Pulse Oximetry 96 MDM - Chest Pain Lab Data 01/22/25 21:15 01/22/25 21:15 Labs: Lab Results 01/22/25 01/22/25 Range/Units 21:15 23:00 WBC 5.2 (4.5-11.0) X10^3/uL RBC 4.64 (4.5-5.9) X10^6/uL Hgb 14.2 (13.5-17.5) g/dL Hct 40.9 L (41-53) % MCV 88.2 (80-100) fL MCH 30.6 (26-34) PG MCHC 34.7 (30-36) % RDW 13.3 (11.6-14.8) % Plt Count 173 (150-400) X10^3/uL Neut % (Auto) 73.9 (50-75) % Lymph % (Auto) 13.7 L (25-40) % Buchanan % (Auto) 7.4 (3-14) % Eos % (Auto) 4.2 H (2-4) % Baso % (Auto) 0.8 (0-2) % Neut # (Auto) 3800 (2426-0579) /uL Lymph # (Auto) 700 L (1983-0749) /uL Buchanan # (Auto) 400 (0-900) /uL Eos # (Auto) 200 (0-450) /uL Baso # (Auto) 0 (0-100) /uL PT 12.1 (9.4-12.5) SECONDS INR 1.1 (0.9-1.3) APTT 31 (25.1-36.5) SECONDS Sodium 137 (137-145) mmol/L Potassium 3.8 (3.4-5.1) mmol/L Chloride 101 (98-107) mmol/L Carbon Dioxide 30 (22-32) mmol/L BUN 22 H (9-20) mg/dL Creatinine 1.04 (0.66-1.25) mg/dL Estimated GFR > 60 (>60) mL/min BUN/Creatinine Ratio 21.2 (6-22) Glucose 195 H (80-110) mg/dL Calcium 9.1 (8.4-10.2) mg/dL Magnesium 2.2 (1.6-2.3) mg/dL Total Bilirubin 0.4 (0.2-1.3) mg/dL AST 18 (17-59) IU/L ALT 7 (<50) IU/L Alkaline Phosphatase 68 (38-126) U/L Total Creatine Kinase 33 L (55-170) U/L Troponin I < 0.012 < 0.012 (0.01-0.034) ng/mL NT-Pro-B Natriuret Pep 482 H (<450) pg/mL Total Protein 6.5 (6.3-8.2) g/dL Albumin 3.9 (3.5-5.0) g/dL Globulin 2.6 (1.7-4.1) g/dL Albumin/Globulin Ratio 1.5 (1.0-2.8) Lipase 90 (23-300) U/L MDM Narrative Medical decision making narrative: 79-year-old male history of Parkinson's who is presenting to the emergency department for chest pain that is now resolved that happened tonight after dinner INITIAL EVALUATION AND PLAN: - Obtain EKG. - Obtain chest X-ray. - Perform lab work to assess cardiac function. - Recommend follow-up with a district resource officer. - Provide patient with district resource officer contact information. Differential diagnosis includes but is not limited to: ACS, PE, mi, hypertension, GERD, reflux, gas pain reviewed patient's CBC that showed no significant abnormalities requiring intervention, no significant anemia or thrombocytopenia - reviewed patient's chemistry which showed no electrolyte abnormalities that will require intervention no signs of JENA - patient's troponin is undetectable x2, BNP only mildly elevated at 482. Very low clinical suspicion for PE or aortic pathology - patient's chest x-ray reviewed that shows no signs of intrathoracic abnormality no signs of wide mediastinum, pneumothorax, pneumonia or other significant abnormality. - Unfortunately we are unable to obtain an EKG today in the emergency department due to patient's nerve stimulator interfering with EKG, we attempted to have this done by turning off the nerve stimulator however the device that they usually use to turn it off was not working. Patient has had no chest pain during the time in the emergency department, has had 2- troponins. I did discuss with the family that I am unable to fully workup potential cardiac etiologies without an EKG however at this time they do not want to wait in the emergency department for us to obtain a different device or transfer to a different facility. They will be discharged with strict return precautions for worsening chest pain and instructions to follow up with her district resource officer. Discharge Plan Departure Patient Disposition: Home Clinical Impression: Chest pain Activity Restrictions/Additional Instructions: please return to the emergency department if you have worsening symptoms and wished to be re-evaluated unfortunately we are not able to complete your workup today due to lack of inability to get an EKG please return to the emergency department if you have worsening chest pain and have a wish for re-evaluation. Please bring the device needed to turn off her stimulator so that we can obtain an EKG in the future. Prescriptions: No Action metoprolol succinate 50 mg tablet extended release 24 hr 50 mg PO BID Qty: 90 1RF (DME) Disabled Parking Permit See Rx Instructions .ROUTE .MEDSUPPLY Qty: 1 0RF Rx Instructions: I find this patient to be medically disabled and qualified for Disabled Parking as indicated and signed on the accompanying Disabled Parking Application for Individuals. losartan 50 mg tablet 50 mg PO BID Qty: 180 3RF carbidopa-levodopa 25-100 mg tablet,disintegrating 25 - 100 tab PO QID Patient Comments: Pt takes at 0800/1200/1700/2100 isosorbide mononitrate 30 mg tablet extended release 24 hr 30 ea PO DAILY Patient Comments: TAKE ONE TABLET BY MOUTH ONE TIME DAILY acetaminophen [Tylenol] 325 mg Tablet 325 mg PO Q6H PRN (Reason: Pain (Scale Score 1-3)) carbidopa-levodopa 50-200 mg Tablet Extended Release 1 tab PO QID Patient Comments: Pt takes 0800/1200/1700/2100 Rx Instructions: divide evenly over waking hours amlodipine 5 mg tablet 10 mg PO BID Rx Instructions: increase to 7.5mg daily if blood pressure above 140/90 daily. Referrals: Anson Benitez MD [Primary Care Provider] - Stand Alone Forms: Patient Portal/API/Survey
--- NOTE | 2025-01-22 23:13 | PC.NURSE ---
refuses to let us turn off his DBS for an EKG as she states we are not familiar with it. Unable to obtain EKG at this time
[2025-01-22 23:32] LABS: Troponin I < 0.012 ng/mL (0.01-0.034)
[2025-01-23] VITALS (10 sets, daily range): BP systolic 191–206; BP diastolic 89–98; PULSE 64–82; RESP 12–43; TEMP 36.7; O2SAT 95–97
--- NOTE | 2025-01-23 00:31 | PC.NURSE ---
Patient using urinal, at bedside
--- NOTE | 2025-01-23 00:49 | PC.NURSE ---
Patient took his evening medications. Given to him by his
--- NOTE | 2025-01-23 00:55 | PC.NURSE ---
Patients agreed to have DBS turned off briefly so and EKG can be obtained
== END 2025-01-23 02:42 | disposition home or self-care (01) ==
PROVIDERS: Emergency Provider Emergency Medicine; Family Provider Family Medicine; PCP Family Medicine
DX: R07.9 Chest pain, unspecified (principal); I10 Essential (primary) hypertension; G20.A1 Parkinson's disease without dyskinesia, without mention of fluctuations; Z96.82 Presence of neurostimulator; Z87.891 Personal history of nicotine dependence
CPT/HCPCS: 36415; 71045; 80053; 82550; 83690; 83735; 83880; 84484; 85025; 85610; 85730; 99284

== ENCOUNTER → 2025-03-02 14:16 | Outpatient (CLI) | payer MEDICARE, OTHER, SELFPAY ==
[2024-08-14 03:30] VITALS: BMI 24.3
[2025-03-02 15:47] LABS: Prostate Specific Antigen 0.372 ng/mL (0.10-4.00)
== END ==
PROVIDERS: Family Provider Family Medicine; PCP Family Medicine; Referring Provider Urology; Visit Provider Urology
DX: C61 Malignant neoplasm of prostate (principal)
CPT/HCPCS: 36415; 84153

== ENCOUNTER 2025-06-23 20:10 | Emergency (ER) | payer MEDICARE, OTHER, SELFPAY ==
[2024-08-14 03:30] VITALS: BMI 24.3
[2025-06-23 20:22] VITALS: BP 156/72; PULSE 69; RESP 17; TEMP 36.6; O2SAT 98; BMI 22.3
--- NOTE | 2025-06-24 05:54 | ED.WOUNDLAC ---
HPI - Wound/Laceration General Chief Complaint: Wound/Laceration Stated Complaint: Fall, L Hand Laceration, No thinners Time Seen by Provider: 06/23/25 20:48 Source: patient Mode of arrival: Ambulatory Related Data Home Medications ?Medication ?Instructions ?Recorded ?Confirmed acetaminophen 325 mg tablet 325 mg PO Q6H PRN Pain (Scale 06/26/18 03/15/25 (Tylenol) Score 1-3) carbidopa 25 mg-levodopa 100 mg 25 - 100 tab PO QID parkinson's 07/14/20 03/15/25 disintegrating tablet symptoms isosorbide mononitrate 30 mg 30 ea PO DAILY 02/15/23 03/15/25 tablet,extended release 24 hr carbidopa ER 50 mg-levodopa 200 mg 1 tab PO QID 08/14/24 03/15/25 tablet,extended release aspirin 81 mg tablet,delayed 81 mg PO DAILY 02/11/25 03/15/25 release (Adult Low Dose Aspirin) atorvastatin 40 mg tablet 40 mg PO DAILY 02/11/25 03/15/25 rivastigmine 4.6 mg/24 hour 4.6 mg transdermal DAILY 02/11/25 03/15/25 transdermal patch zonisamide 25 mg capsule 25 mg PO DAILY 02/11/25 03/15/25 amlodipine 2.5 mg tablet 2.5 mg PO DAILY 03/15/25 03/15/25 Previous Rx's ?Medication ?Instructions ?Recorded losartan 50 mg tablet 50 mg PO BID #180 tabs 02/02/21 metoprolol succinate 50 mg 50 mg PO BID #90 tabs 02/16/22 tablet,extended release 24 hr Disabled Parking Permit #1 ea 03/31/24 Allergies Allergy/AdvReac Type Severity Reaction Status Date / Time adhesive tape Allergy Intermediate Blister Verified 06/23/25 20:30 cefuroxime Allergy Mild rash/ Verified 06/23/25 20:30 itching codeine (CODEINE) Allergy Mild NAUSEA Verified 06/23/25 20:30 clindamycin AdvReac N/V Verified 06/23/25 20:30 Patient History Medical History (Updated 06/24/25 @ 01:31 by Deepthi Adams RN) History of urinary calculi History of prostate cancer BPH w urinary obs/LUTS Nocturnal enuresis Bladder calculus Calcification of prostate History of radiation therapy Urinary incontinence Lower urinary tract symptoms Hx of chest pain Coronary artery disease Acute non-ST elevation myocardial infarction (NSTEMI) Headache Chronic low back pain with sciatica Paresthesias in left hand CVA (cerebral vascular accident) Hypertension Hairy cell leukemia Parkinsons disease Surgical History S/P deep brain stimulator placement (09/16/14) S/P TURP History of tonsillectomy Social History marital status: number of children: 2 household members: spouse occupational status: previously employed and other Smoking Status: Never smoker Tobacco: How many years used: 5 alcohol intake: never substance use type: does not use caffeine: No Type(s) of exercise: walking frequency: other Smoking Status: Never smoker alcohol intake frequency: a few times a month Exam Initial Vital Signs Initial Vital Signs: Vital Signs Temperature 98 F 06/23/25 20:22 Pulse Rate 69 06/23/25 20:22 Respiratory Rate 17 06/23/25 20:22 Blood Pressure 156/72 H 06/23/25 20:22 Pulse Oximetry 98 06/23/25 20:22 Oxygen Delivery Method Room Air 06/23/25 20:22 Discharge Plan Departure Patient Disposition: Left Without Being Seen Clinical Impression: Patient left without being seen Prescriptions: No Action metoprolol succinate 50 mg tablet extended release 24 hr 50 mg PO BID Qty: 90 1RF (DME) Disabled Parking Permit See Rx Instructions .ROUTE .MEDSUPPLY Qty: 1 0RF Rx Instructions: I find this patient to be medically disabled and qualified for Disabled Parking as indicated and signed on the accompanying Disabled Parking Application for Individuals. losartan 50 mg tablet 50 mg PO BID Qty: 180 3RF amlodipine 2.5 mg tablet 2.5 mg PO DAILY carbidopa-levodopa 25-100 mg tablet,disintegrating 25 - 100 tab PO QID Patient Comments: Pt takes at 0800/1200/1700/2100 isosorbide mononitrate 30 mg tablet extended release 24 hr 30 ea PO DAILY Patient Comments: TAKE ONE TABLET BY MOUTH ONE TIME DAILY rivastigmine 4.6 mg/24 hour patch 24 hour 4.6 mg transdermal DAILY aspirin [Adult Low Dose Aspirin] 81 mg tablet,delayed release (DR/EC) 81 mg PO DAILY atorvastatin 40 mg tablet 40 mg PO DAILY zonisamide 25 mg capsule 25 mg PO DAILY acetaminophen [Tylenol] 325 mg Tablet 325 mg PO Q6H PRN (Reason: Pain (Scale Score 1-3)) carbidopa-levodopa 50-200 mg Tablet Extended Release 1 tab PO QID Patient Comments: Pt takes 0800/1200/1700/2100 Rx Instructions: divide evenly over waking hours
== END 2025-06-24 01:31 | disposition left against medical advice (07) ==
PROVIDERS: Emergency Provider Family Medicine; Family Provider Family Medicine; PCP Family Medicine
CPT/HCPCS: 99281

== ENCOUNTER → 2025-06-30 10:42 | Outpatient (CLI) | payer MEDICARE, OTHER, SELFPAY ==
[2024-08-14 03:30] VITALS: BMI 24.3
[2025-06-30 12:55] LABS: Prostate Specific Antigen 0.420 ng/mL (0.10-4.00)
== END ==
PROVIDERS: Family Provider Family Medicine; PCP Family Medicine; Referring Provider Urology; Visit Provider Urology
DX: Z85.46 Personal history of malignant neoplasm of prostate (principal); Z92.3 Personal history of irradiation
CPT/HCPCS: 36415; 84153

== ENCOUNTER 2025-07-05 15:15 | Emergency (ER) | payer MEDICARE, OTHER, SELFPAY ==
[2024-08-14 03:30] VITALS: BMI 24.3
[2025-07-05] VITALS (9 sets, daily range): BP systolic 139–182; BP diastolic 69–84; PULSE 59–72; RESP 20; TEMP 37; O2SAT 79–100; BMI 22.9
--- NOTE | 2025-07-05 15:20 | DI.RAD.S_ITS ---
PROCEDURE: XR SHOULDER LT MIN 2V INDICATIONS: mechanical glf TECHNIQUE: 3 views of the shoulder were acquired. COMPARISON: Merged With [facility], CR, XR RIBS LT MIN 3V W CXR1V, 06/24/2025, 12:17. FINDINGS: Bones: No fractures or dislocations. Wxug-st-[id number] osteoarthritic changes are noted in acromioclavicular joint and glenohumeral joint. No suspicious bony lesions. Visualized ribs appear intact. Soft tissues: No suspicious soft tissue calcifications. IMPRESSION: No acute shoulder fracture or dislocation. Gfty-[id number] acromioclavicular joint and glenohumeral joint osteoarthritis. Dictated by: Brenton Turner M.D. on 07/05/2025 at 16:07 Approved by: Brenton Turner M.D. on 07/05/2025 at 16:08
--- NOTE | 2025-07-05 16:32 | DI.CT.S_ITS ---
PROCEDURE: CT CERVICAL SPINE WO CON INDICATIONS: trauma TECHNIQUE: Noncontrast 3 mm thick sections acquired from the skull base to the T4 level. Sagittal and coronal reformats were then constructed. For radiation dose reduction, the following was used: automated exposure control, adjustment of mA and/or kV according to patient size. COMPARISON: None. FINDINGS: Image quality: Excellent. Bones: No fractures or dislocations. Loss of disc height, degenerative endplate changes and bilateral facet hypertrophic changes are noted throughout cervical spine. Visualized superior ribs are intact. Soft tissues: Prevertebral soft tissues are normal in thickness. No paravertebral hematomas. No apical pneumothoraces. IMPRESSION: 1. No displaced fracture or traumatic subluxation. 2. Multilevel spondylitic changes throughout cervical spine. Dictated by: Brenton Turner M.D. on 07/05/2025 at 17:06 Approved by: Brenton Turner M.D. on 07/05/2025 at 17:07
--- NOTE | 2025-07-05 16:33 | ED.TRAUMA ---
HPI - Trauma General Chief Complaint: Extremity Injury, Upper Stated Complaint: Fall, shoulder pain Time Seen by Provider: 07/05/25 15:17 Source: patient, family and EMS Mode of arrival: Ambulatory History of Present Illness HPI narrative: 80-year-old gentleman history of hypertension dyslipidemia Parkinson's status post deep brain stimulator had a mechanical fall today while cleaning the garage hitting his left shoulder and head against the ground prior to arrival here with no loss of consciousness complaints of left shoulder pain. Patient denies dizziness, chest pain, shortness of breath, cough, leg pain, neck pain, and back pain. Patient denies nausea, vomiting, diaphoresis, numbness, tingling, down the legs bowel or bladder incontinence. Other than what is stated 14 point review of system is negative. Related Data Home Medications ?Medication ?Instructions ?Recorded ?Confirmed acetaminophen 325 mg tablet 325 mg PO Q6H PRN Pain (Scale 06/26/18 06/24/25 (Tylenol) Score 1-3) carbidopa 25 mg-levodopa 100 mg 25 - 100 tab PO QID parkinson's 07/14/20 06/24/25 disintegrating tablet symptoms isosorbide mononitrate 30 mg 30 ea PO DAILY 02/15/23 06/24/25 tablet,extended release 24 hr carbidopa ER 50 mg-levodopa 200 mg 1 tab PO QID 08/14/24 06/24/25 tablet,extended release aspirin 81 mg tablet,delayed 81 mg PO DAILY 02/11/25 06/24/25 release (Adult Low Dose Aspirin) atorvastatin 40 mg tablet 40 mg PO DAILY 02/11/25 06/24/25 rivastigmine 4.6 mg/24 hour 4.6 mg transdermal DAILY 02/11/25 06/24/25 transdermal patch zonisamide 25 mg capsule 25 mg PO DAILY 02/11/25 06/24/25 amlodipine 2.5 mg tablet 2.5 mg PO DAILY 03/15/25 06/24/25 Previous Rx's ?Medication ?Instructions ?Recorded losartan 50 mg tablet 50 mg PO BID #180 tabs 02/02/21 metoprolol succinate 50 mg 50 mg PO BID #90 tabs 02/16/22 tablet,extended release 24 hr Disabled Parking Permit #1 ea 03/31/24 Allergies Allergy/AdvReac Type Severity Reaction Status Date / Time adhesive tape Allergy Intermediate Blister Verified 07/05/25 15:15 cefuroxime Allergy Mild rash/ Verified 07/05/25 15:15 itching codeine (CODEINE) Allergy Mild NAUSEA Verified 07/05/25 15:15 clindamycin AdvReac N/V Verified 07/05/25 15:15 Review of Systems Review of Systems ROS Unobtainable: All systems reviewed & are unremarkable except as noted in HPI and below Patient History Medical History (Updated 07/05/25 @ 17:36 by Joe Reynolds DO) History of urinary calculi History of prostate cancer BPH w urinary obs/LUTS Nocturnal enuresis Bladder calculus Calcification of prostate History of radiation therapy Urinary incontinence Lower urinary tract symptoms Hx of chest pain Coronary artery disease Acute non-ST elevation myocardial infarction (NSTEMI) Headache Chronic low back pain with sciatica Paresthesias in left hand CVA (cerebral vascular accident) Hypertension Hairy cell leukemia Parkinsons disease Surgical History S/P deep brain stimulator placement (09/16/14) S/P TURP History of tonsillectomy Social History marital status: number of children: 2 household members: spouse occupational status: previously employed and other Smoking Status: Never smoker Tobacco: How many years used: 5 alcohol intake: never substance use type: does not use caffeine: No Type(s) of exercise: walking frequency: other Smoking Status: Never smoker alcohol intake frequency: a few times a month Exam Narrative Exam Narrative: GENERAL: 80] year old patient appears stated age. Well-developed patient, in mild distress. HEAD: Atraumatic. Normocephalic. EYES: Pupils equal round and reactive. Extraocular motions intact. No scleral icterus. No injection or drainage. ENT: Nose without bleeding, purulent drainage. Throat without erythema, tonsillar hypertrophy or exudate. Airway patent. NECK: Trachea midline. Non tender CARDIOVASCULAR: Regular rate and rhythm without murmurs, gallops, or rubs. RESPIRATORY: Clear to auscultation. Breath sounds equal bilaterally. No wheezes, rales, or rhonchi. GASTROINTESTINAL: Abdomen soft, non-tender, nondistended. EXTREMITIES: No edema or joint tenderness. BACK: Nontender without deformity or crepitance. No flank tenderness. NEURO: AOx3. SKIN: No rash or erythema of visible areas Initial Vital Signs Initial Vital Signs: Vital Signs Temperature 98.6 F 07/05/25 15:15 Pulse Rate 70 07/05/25 15:15 Respiratory Rate 20 07/05/25 15:15 Blood Pressure 139/69 07/05/25 15:15 Pulse Oximetry 100 07/05/25 15:15 Oxygen Delivery Method Room Air 07/05/25 15:15 Course Orders Ordered: ED Orders 07/05/25 15:20 XR shoulder LT 2+ views Stat 07/05/25 16:32 CT cervical spine wo con Stat CT head/brain wo con Stat CXR [XR chest 1V] Stat Vital Signs Vital signs: Vital Signs - 8 hr 07/05/25 15:15 Temperature 98.6 F Pulse Rate 70 Respiratory Rate 20 Blood Pressure 139/69 Pulse Oximetry 100 Oxygen Delivery Method Room Air MDM - Trauma Imaging Data Chest x-ray: Radiologist's Impression: [address] [address] XRay Report Signed Patient: Olu Rivas V MR#: [id number] : 1945 Acct:[id number] Age/Sex: 80 / M Date of Service: 07/05/25 Loc: ED Accession Number: [id number] Procedure: XR chest 1V Ordering Provider: Joe Reynolds D.O. PROCEDURE: XR CHEST 1V INDICATIONS: trauma TECHNIQUE: One view of the chest was acquired. COMPARISON: [facility], CR, XR CHEST 1V, 01/22/2025, 21:07. [facility], CR, XR CHEST 1V, 08/13/2024, 21:53. FINDINGS: Surgical changes and devices: Left chest wall generator. Lungs and pleura: Lungs are clear. No pleural effusions or pneumothorax. Mediastinum: Mediastinal contours appear normal. Heart size is normal. Bones and chest wall: No suspicious bony lesions. Overlying soft tissues appear unremarkable. IMPRESSION: No acute cardiopulmonary abnormality is seen. Extremity x-ray #1: Radiologist's Impression: [address] [address] XRay Report Signed Patient: Olu Rivas V MR#: [id number] : 1945 Acct:[id number] Age/Sex: 80 / M Date of Service: 07/05/25 Loc: ED Accession Number: [id number] Procedure: XR shoulder LT 2+ views Ordering Provider: Joe Reynolds D.O. PROCEDURE: XR SHOULDER LT MIN 2V INDICATIONS: mechanical glf TECHNIQUE: 3 views of the shoulder were acquired. COMPARISON: [facility], CR, XR RIBS LT MIN 3V W CXR1V, 06/24/2025, 12:17. FINDINGS: Bones: No fractures or dislocations. Birh-ft-kxjqukea osteoarthritic changes are noted in acromioclavicular joint and glenohumeral joint. No suspicious bony lesions. Visualized ribs appear intact. Soft tissues: No suspicious soft tissue calcifications. IMPRESSION: No acute shoulder fracture or dislocation. Ihob-gb-mxrsxiwa acromioclavicular joint and glenohumeral joint osteoarthritis. CT scan - head: Radiologist's Impression: [place] [address] CT Scan Report Signed Patient: Olu Rivas V MR#: [id number] : 1945 Acct:[id number] Age/Sex: 80 / M Date of Service: 07/05/25 Loc: ED Accession Number: [id number] Procedure: CT head/brain wo con Ordering Provider: Joe Reynolds D.O. PROCEDURE: CT HEAD/BRAIN WO CON INDICATIONS: trauma TECHNIQUE: Noncontrast 4.5 mm thick angled axial sections acquired from the foramen magnum to the vertex, with coronal and sagittal reformats. For radiation dose reduction, the following was used: automated exposure control, adjustment of mA and/or kV according to patient size. COMPARISON: [facility], CT, CT HEAD/BRAIN WO CON, 11/12/2024, 20:03. FINDINGS: Image quality: Diagnostic. CSF spaces: Basal cisterns are patent. No extra-axial fluid collections. The ventricles are symmetric in size and shape. Brain: No intracranial bleeds or mass effect. Bilateral brain stimulator leads are seen unchanged from prior study. There is cerebral volume loss, with resultant ventricular and sulcal prominence. There are periventricular and deep white matter chronic small vessel ischemic changes. There is intracranial internal carotid artery atherosclerosis. Skull and face: Calvarium and visualized facial bones appear intact, without suspicious lesions. Sinuses: Visualized sinuses and mastoids are clear. IMPRESSION: No acute intracranial pathology. No significant changes from prior study. CT - cervical spine: Radiologist's Impression: [address] [address] XRay Report Signed Patient: Olu Rivas V MR#: [id number] : 1945 Acct:[id number] Age/Sex: 80 / M Date of Service: 07/05/25 Loc: ED Accession Number: [id number] Procedure: XR chest 1V Ordering Provider: Joe Reynolds D.O. PROCEDURE: XR CHEST 1V INDICATIONS: trauma TECHNIQUE: One view of the chest was acquired. COMPARISON: [facility], CR, XR CHEST 1V, 01/22/2025, 21:07. [facility], CR, XR CHEST 1V, 08/13/2024, 21:53. FINDINGS: Surgical changes and devices: Left chest wall generator. Lungs and pleura: Lungs are clear. No pleural effusions or pneumothorax. Mediastinum: Mediastinal contours appear normal. Heart size is normal. Bones and chest wall: No suspicious bony lesions. Overlying soft tissues appear unremarkable. IMPRESSION: No acute cardiopulmonary abnormality is seen. Dictated by: Kalyan Stanford M.D. on 07/05/2025 at 16:53 Approved by: Kalyan Stanford M.D. on 07/05/2025 at 16:54 MDM Narrative Medical decision making narrative: All lab work, vital signs, nurse triage note, medication list, previous ER visits, and all imaging studies reviewed. Left shoulder x-ray showed no acute fracture or dislocation mild to moderate AC joint and glenohumeral joint arthritis. Chest x-ray no acute process. Cervical spine showed multilevel spondylitic changes throughout cervical spine. CT head showed no acute process. Differential diagnosis includes subarachnoid ,subdural hemorrhage, aneurysm, dislocation, pneumothorax, dislocation, contusion. Discharge Plan Departure Patient Disposition: Home Clinical Impression: Fall Qualifiers: Encounter type: initial encounter Qualified Code(s): W19.XXXA - Unspecified fall, initial encounter Contusion Qualifiers: Encounter type: initial encounter Contusion area: shoulder Laterality: left Qualified Code(s): S40.012A - Contusion of left shoulder, initial encounter Instructions: DI for Contusion Prescriptions: No Action metoprolol succinate 50 mg tablet extended release 24 hr 50 mg PO BID Qty: 90 1RF (DME) Disabled Parking Permit See Rx Instructions .ROUTE .MEDSUPPLY Qty: 1 0RF Rx Instructions: I find this patient to be medically disabled and qualified for Disabled Parking as indicated and signed on the accompanying Disabled Parking Application for Individuals. losartan 50 mg tablet 50 mg PO BID Qty: 180 3RF amlodipine 2.5 mg tablet 2.5 mg PO DAILY carbidopa-levodopa 25-100 mg tablet,disintegrating 25 - 100 tab PO QID Patient Comments: Pt takes at 0800/1200/1700/2100 isosorbide mononitrate 30 mg tablet extended release 24 hr 30 ea PO DAILY Patient Comments: TAKE ONE TABLET BY MOUTH ONE TIME DAILY rivastigmine 4.6 mg/24 hour patch 24 hour 4.6 mg transdermal DAILY aspirin [Adult Low Dose Aspirin] 81 mg tablet,delayed release (DR/EC) 81 mg PO DAILY atorvastatin 40 mg tablet 40 mg PO DAILY zonisamide 25 mg capsule 25 mg PO DAILY acetaminophen [Tylenol] 325 mg Tablet 325 mg PO Q6H PRN (Reason: Pain (Scale Score 1-3)) carbidopa-levodopa 50-200 mg Tablet Extended Release 1 tab PO QID Patient Comments: Pt takes 0800/1200/1700/2100 Rx Instructions: divide evenly over waking hours Referrals: Anson Benitez MD [Primary Care Provider, Family Practice] Stand Alone Forms: Patient Portal/API
== END 2025-07-05 18:09 | disposition home or self-care (01) ==
PROVIDERS: Emergency Provider Family Medicine; Family Provider Family Medicine; PCP Family Medicine
DX: S40.012A Contusion of left shoulder, initial encounter (principal); S09.90XA Unspecified injury of head, initial encounter; W18.30XA Fall on same level, unspecified, initial encounter
CPT/HCPCS: 70450; 71045; 72125; 73030; 99281; 99284

== ENCOUNTER 2025-08-02 13:17 | Observation (INO) | payer MEDICARE, OTHER, SELFPAY ==
[2024-08-14 03:30] VITALS: BMI 24.3
[2025-08-02] VITALS (21 sets, daily range): BP systolic 116–174; BP diastolic 58–122; PULSE 56–76; RESP 10–47; TEMP 36.2–36.6; O2SAT 95–96; BMI 24.0
--- NOTE | 2025-08-02 13:18 | DI.RAD.S_ITS ---
1PROCEDURE: XR CHEST 1V INDICATIONS: Chest Pain TECHNIQUE: One view of the chest was acquired. COMPARISON: [facility], CT, CT CHEST W CON, 07/09/2025, 11:39. [facility], CR, XR CHEST 1V, 07/09/2025, 10:38. [facility], CR, XR CHEST 1V, 07/05/2025, 16:37. FINDINGS: Surgical changes and devices: Neural stimulator device in left anterior chest courses superior to the field of the along the left neck. Lungs and pleura: Calcified pleural plaques in the bilateral apices. No consolidation. Left basilar infrahilar atelectasis. No pleural effusion or pneumothorax. Mediastinum: Mild cardiomegaly. Bones and chest wall: No suspicious bony lesions. Overlying soft tissues appear unremarkable. IMPRESSION: No acute cardiopulmonary abnormality is seen. Calcified pleural plaques can be seen with prior asbestos exposure. Dictated by: David Fisher M.D. on 08/02/2025 at 14:25 Approved by: David Fisher M.D. on 08/02/2025 at 14:27
[2025-08-02 13:26] LABS: INR 1.1 (0.9-1.3); Prothrombin Time 12.7 SECONDS (9.4-12.5)
[2025-08-02 13:28] LABS: PTT Partial Thromboplastin Tim 21 SECONDS (25.1-36.5)
[2025-08-02 13:29] LABS: Alanine Aminotransferase 9 IU/L (<50); Albumin 3.5 g/dL (3.5-5.0); Albumin Globulin Ratio 1.3 (1.0-2.8); Alkaline Phosphatase 76 U/L (38-126); Blood Urea Nitrogen 25 mg/dL (9-20); Calcium 8.6 mg/dL (8.4-10.2); Carbon Dioxide 24 mmol/L (22-32); Chloride 106 mmol/L (98-107); Creatine Kinase 34 U/L (55-170); Estimated Glomerular Filt Rate > 60 mL/min (>60); Globulin 2.6 g/dL (1.7-4.1); Glucose 155 mg/dL (70-99); Lipase 49 U/L (23-300); Magnesium 2.1 mg/dL (1.6-2.3); Potassium 4.3 mmol/L (3.4-5.1); Sodium 138 mmol/L (137-145); Total Protein 6.1 g/dL (6.3-8.2)
[2025-08-02 13:30] LABS: HEMOLYSIS 63 (0-50)
[2025-08-02 13:32] LABS: Add Manual Diff / Slide Review NO; Hematocrit 37.4 % (41-53); Hemoglobin 12.9 g/dL (13.5-17.5); Lymphocytes Absolute Auto 500 /uL (1100-4500); Mean Corpuscular HGB Conc 34.4 % (30-36); Mean Corpuscular Hemoglobin 30.6 PG (26-34); Mean Corpuscular Volume 89.1 fL (80-100); Platelet Count 124 X10^3/uL (150-400)
[2025-08-02 13:41] LABS: NT-proBNP (BNP-Adult 18+) 309 pg/mL (<450); Troponin I < 0.012 ng/mL (0.01-0.034)
--- NOTE | 2025-08-02 16:13 | ED.GENADULT ---
HPI - General Adult General Chief complaint: Syncope Stated complaint: Syncope Time Seen by Provider: 08/02/25 15:12 Source: patient Mode of arrival: Ambulatory History of Present Illness HPI narrative: 80-year-old gentleman with a history of Parkinson's disease, hypertension, hyperlipidemia, coronary artery disease, prostate cancer, hairy cell leukemia was found by his unconscious and hypotensive sitting at the kitchen table. Brought in by medics and was alert and oriented x4 on arrival. Complains of feeling fatigued and weak. He does have a deep brain stimulator for his Parkinson's disease that is working moderately well. No headaches, shortness for breath, nausea vomiting, chest pain Related Data Home Medications ?Medication ?Instructions ?Recorded ?Confirmed acetaminophen 325 mg tablet 325 mg PO Q6H PRN Pain (Scale 06/26/18 08/02/25 (Tylenol) Score 1-3) carbidopa 25 mg-levodopa 100 mg 50 - 200 tab PO BEDTIME 07/14/20 08/02/25 disintegrating tablet parkinson's symptoms isosorbide mononitrate 30 mg 30 ea PO DAILY 02/15/23 08/02/25 tablet,extended release 24 hr carbidopa ER 50 mg-levodopa 200 mg 1 tab PO QID 08/14/24 08/02/25 tablet,extended release atorvastatin 40 mg tablet 40 mg PO DAILY 02/11/25 08/02/25 rivastigmine 4.6 mg/24 hour 4.6 mg transdermal DAILY 02/11/25 08/02/25 transdermal patch zonisamide 25 mg capsule 25 mg PO DAILY 02/11/25 08/02/25 amlodipine 2.5 mg tablet 2.5 mg PO BID 03/15/25 08/02/25 tamsulosin 0.4 mg capsule (Flomax) 0.4 mg PO BEDTIME 08/02/25 08/02/25 Previous Rx's ?Medication ?Instructions ?Recorded losartan 50 mg tablet 50 mg PO BID #180 tabs 02/02/21 metoprolol succinate 50 mg 50 mg PO BID #90 tabs 02/16/22 tablet,extended release 24 hr Disabled Parking Permit #1 ea 03/31/24 oxycodone-acetaminophen 5 mg-325 1 tab PO Q6H PRN pain #10 tabs 07/09/25 mg tablet Allergies Allergy/AdvReac Type Severity Reaction Status Date / Time adhesive tape Allergy Intermediate Blister Verified 08/02/25 13:08 cefuroxime Allergy Mild rash/ Verified 08/02/25 13:08 itching codeine (CODEINE) Allergy Mild NAUSEA Verified 08/02/25 13:08 clindamycin AdvReac N/V Verified 08/02/25 13:08 Review of Systems Review of Systems Narrative: Pertinent positive and negative findings as per HPI Patient History Medical History History of urinary calculi History of prostate cancer BPH w urinary obs/LUTS Nocturnal enuresis Bladder calculus Calcification of prostate History of radiation therapy Urinary incontinence Lower urinary tract symptoms Hx of chest pain Coronary artery disease Acute non-ST elevation myocardial infarction (NSTEMI) Headache Chronic low back pain with sciatica Paresthesias in left hand CVA (cerebral vascular accident) Hypertension Hairy cell leukemia Parkinsons disease Surgical History S/P deep brain stimulator placement (09/16/14) S/P TURP History of tonsillectomy Social History marital status: number of children: 2 household members: spouse occupational status: previously employed and other Smoking Status: Former smoker Tobacco: How many years used: 5 alcohol intake: never substance use type: does not use caffeine: No Type(s) of exercise: walking frequency: other Smoking Status: Never smoker alcohol intake frequency: a few times a month Exam Initial Vital Signs Initial Vital Signs: Vital Signs Pulse Rate 64 08/02/25 13:05 Pulse Oximetry 96 08/02/25 13:05 General: Parkinsonian movements but alert and appropriate HEENT: Moist mucous membranes, normal sclera with reactive pupils, Respiratory: Lungs are clear to auscultation, no wheezing no rales no rhonchi. Full and symmetrical air movement Cardiac: Regular rate and rhythm no murmurs no bruits Abdomen: Soft, nontender, no rebound or guarding, no flank pain Skin: Warm and dry, no rashes Neurologic: Significant Parkinson's sequelae, no localizing deficits Extremities: No trauma, no lower extremity edema Psych: Cooperative, appropriate insight and affect Course Orders Ordered: ED Orders 08/02/25 16:37 Trop I [Troponin I] Stat 08/02/25 18:30 CT head/brain wo con Stat 08/02/25 20:00 EKG-12 Lead Stat Acetaminophen (Acetaminophen 325 Mg Tablet) 650 mg PO Q6H PRN PRN Reason: Fever/Mild Pain (1-3) Amlodipine Besylate (Amlodipine 5 Mg Tablet) 2.5 mg PO BID [facility] Last Admin: 08/02/25 23:17 Dose: 2.5 mg Documented By: PAULINA Atorvastatin Calcium (Atorvastatin 20 Mg Tablet) 40 mg PO BEDTIME [facility] Last Admin: 08/02/25 23:20 Dose: 40 mg Documented By: PAULINA Carbidopa/Levodopa (Carbidopa-Levodopa Er 50/200 Tablet) 1.5 each PO BEDTIME [facility] Last Admin: 08/02/25 23:17 Dose: 1.5 each Documented By: PAULINA Carbidopa/Levodopa (Carbidopa-Levodopa Er 50/200 Tablet) 1 each PO 0900,1200,1800 [facility] Heparin Sodium (Porcine) (Heparin 5,000 Unit/Ml Vial) 5,000 unit SUBCUT BID [facility] Last Admin: 08/02/25 22:56 Dose: Not Given Documented By: PAULINA Sodium Chloride (Normal Saline 0.9%) 1,000 mls @ 75 mls/hr IV CONT [facility] Last Admin: 08/02/25 21:49 Dose: 75 mls/hr Documented By: PAULINA Losartan Potassium (Losartan 50 Mg Tablet) 50 mg PO BID [facility] Last Admin: 08/02/25 23:14 Dose: 50 mg Documented By: PAULINA Metoprolol Succinate (Metoprolol Er 50 Mg Tablet) 50 mg PO BID [facility] Last Admin: 08/02/25 23:17 Dose: 50 mg Documented By: PAULINA Naloxone HCl (Naloxone 0.4 Mg/Ml Vial) 0.2 mg IV Q2MIN PRN PRN Reason: Opiate Reversal Ondansetron HCl (Ondansetron 4 Mg/2 Ml Inj) 4 mg IV Q8HR PRN PRN Reason: Nausea And Vomiting Tamsulosin HCl (Tamsulosin 0.4 Mg Capsule) 0.4 mg PO BEDTIME [facility] Last Admin: 08/02/25 23:13 Dose: 0.4 mg Documented By: PAULINA Discontinued Medications Aspirin (Aspirin 81 Mg Chew Tab) 324 mg PO NOW ONE Stop: 08/02/25 13:19 Last Admin: 08/02/25 17:11 Dose: Not Given Documented By: Atorvastatin Calcium (Atorvastatin 20 Mg Tablet) 40 mg PO DAILY [facility] Carbidopa/Levodopa (Carbidopa-Levodopa 25/100 Tablet) 1 each PO NOW ONE Stop: 08/02/25 18:31 Last Admin: 08/02/25 18:49 Dose: Not Given Documented By: Carbidopa/Levodopa (Carbidopa-Levodopa Er 50/200 Tablet) 1 each PO QID [id number] Last Admin: 08/02/25 22:40 Dose: Not Given Documented By: PAULINA Sodium Chloride (Normal Saline 0.9%) 1,000 mls @ 150 mls/hr IV CONT [facility] Non-Formulary Medication (Amlodipine) 2.5 mg PO DAILY [facility] Vital Signs Vital signs: Vital Signs - 8 hr 08/02/25 16:00 08/02/25 16:00 08/02/25 16:30 Pulse Rate 63 67 Respiratory Rate 18 22 Blood Pressure 139/70 Pulse Oximetry 96 96 Oxygen Delivery Method 08/02/25 16:31 08/02/25 16:31 08/02/25 17:00 Pulse Rate 66 Respiratory Rate 25 H Blood Pressure 172/77 H 153/74 H Pulse Oximetry 96 Oxygen Delivery Method Room Air 08/02/25 17:00 08/02/25 17:30 08/02/25 17:30 Pulse Rate 58 L 59 L Respiratory Rate 16 10 L Blood Pressure 162/74 H Pulse Oximetry 96 96 Oxygen Delivery Method Room Air 08/02/25 18:00 08/02/25 18:01 08/02/25 18:01 Pulse Rate 61 61 Respiratory Rate 18 47 H Blood Pressure 170/83 H Pulse Oximetry 95 96 Oxygen Delivery Method 08/02/25 18:30 08/02/25 18:30 08/02/25 19:00 Pulse Rate 60 64 Respiratory Rate 23 Blood Pressure 174/78 H Pulse Oximetry 96 96 Oxygen Delivery Method Medical Decision Making Lab Data 08/02/25 13:15 08/02/25 13:15 Labs: Lab Results 08/02/25 08/02/25 Range/Units 13:15 16:37 WBC 4.2 L (4.5-11.0) X10^3/uL RBC 4.20 L (4.5-5.9) X10^6/uL Hgb 12.9 L (13.5-17.5) g/dL Hct 37.4 L (41-53) % MCV 89.1 (80-100) fL MCH 30.6 (26-34) PG MCHC 34.4 (30-36) % RDW 13.2 (11.6-14.8) % Plt Count 124 L (150-400) X10^3/uL Neut % (Auto) 75.8 H (50-75) % Lymph % (Auto) 12.4 L (25-40) % [place] % (Auto) 8.2 (3-14) % Eos % (Auto) 2.8 (2-4) % Baso % (Auto) 0.8 (0-2) % Neut # (Auto) 3200 (0566-0064) /uL Lymph # (Auto) 500 L (3894-1622) /uL [place] # (Auto) 300 (0-900) /uL Eos # (Auto) 100 (0-450) /uL Baso # (Auto) 0 (0-100) /uL PT 12.7 H (9.4-12.5) SECONDS INR 1.1 (0.9-1.3) APTT 21 L (25.1-36.5) SECONDS Sodium 138 (137-145) mmol/L Potassium 4.3 (3.4-5.1) mmol/L Chloride 106 (98-107) mmol/L Carbon Dioxide 24 (22-32) mmol/L BUN 25 H (9-20) mg/dL Creatinine 1.18 (0.66-1.25) mg/dL Estimated GFR > 60 (>60) mL/min BUN/Creatinine Ratio 21.2 (6-22) Glucose 155 H (70-99) mg/dL Calcium 8.6 (8.4-10.2) mg/dL Magnesium 2.1 (1.6-2.3) mg/dL Total Bilirubin 1.3 (0.2-1.3) mg/dL AST 26 (17-59) IU/L ALT 9 (<50) IU/L Alkaline Phosphatase 76 (38-126) U/L Total Creatine Kinase 34 L (55-170) U/L Troponin I < 0.012 < 0.012 (0.01-0.034) ng/mL NT-Pro-B Natriuret Pep 309 (<450) pg/mL Total Protein 6.1 L (6.3-8.2) g/dL Albumin 3.5 (3.5-5.0) g/dL Globulin 2.6 (1.7-4.1) g/dL Albumin/Globulin Ratio 1.3 (1.0-2.8) Lipase 49 (23-300) U/L MDM Narrative Medical decision making narrative: CC: Syncope Complicating co-morbidities: Known coronary disease, Parkinson's with deep brain stimulator, hyperlipidemia, hypertension, prior history of prostate cancer and hairy cell leukemia Data collected from: patient, medics Social determinants of health that may influence the patients condition: Patient lives with his Medical records reviewed: Recent family practice visit for annual wellness as well as chest pain reviewed. Apparently patient fell on July 26 according to the note, according to ER records that was July 09, was taken to the ER evaluation was unremarkable. Was continuing to complain of some mild chest wall pain with the AA resolving chest wall contusion Differential considered: Cardiac syncope, stroke, dehydration, sepsis, other infection Exam documented above, pertinent findings include: Significant parkinsonian movement and speech pattern but alert, has no recollection of the syncopal episode. Heart and lungs are benign, belly is soft Lab Test results independently reviewed as above. Pertinent findings: CBC shows white cell count at 4.2, chemistries are 12.9 and 37.4 which are fairly consistent with previous numbers, platelets at 124. Overall CBC does show very mild pancytopenia CBC shows normal renal function, electrolytes and liver studies Initial troponin is undetectable, repeat troponin is also undetectable ProBNP is not elevated Lipase is not elevated Independently reviewed EKG: Patient has parkinsonian tremor makes EKG uninterpretable Imaging studies independently reviewed: Chest x-ray is unremarkable. Of note with a fall on July 09, chest CT was done that was also unremarkable ,CT head No acute intracranial pathology. Stable appearance of deep brain stimulators. Discussion: 80-year-old gentleman with a history of Parkinson's disease, deep brain stimulator hypertension hyperlipidemia cardiac disease with an unexplained syncopal episode earlier today. He has no recollection of the events. There were no seizure-like activity. There is no evidence of significant heart failure, intracranial abnormality including bleeding no clinical evidence of stroke, no signs of infection or sepsis, serial enzymes for acute coronary syndrome are unremarkable. With the extended loss of consciousness with out initial explanation we will recommend hospitalization with continued telemetry and serial cardiac enzymes. Discussed with the hospitalist service who will agree to admit the patient, patient is amenable to further observation. He is safe for transfer to the floor Discharge Plan Departure Patient Disposition: Admitted as Observation Clinical Impression: Syncope Qualifiers: Syncope type: unspecified Qualified Code(s): R55 - Syncope and collapse Admit Date/Time: 08/02/25 20:12 Admit Provider: Yifan Barroso
--- NOTE | 2025-08-02 17:00 | PC.NURSE ---
Pt wants food. notified.
[2025-08-02 17:06] LABS: Troponin I < 0.012 ng/mL (0.01-0.034)
--- NOTE | 2025-08-02 18:00 | PC.NURSE ---
Pt wants to go home. Dr Yeboah notified.
--- NOTE | 2025-08-02 18:30 | DI.CT.S_ITS ---
PROCEDURE: CT HEAD/BRAIN WO CON INDICATIONS: syncope TECHNIQUE: Noncontrast 4.5 mm thick angled axial sections acquired from the foramen magnum to the vertex, with coronal and sagittal reformats. For radiation dose reduction, the following was used: automated exposure control, adjustment of mA and/or kV according to patient size. COMPARISON: [facility], CT, CT HEAD/BRAIN WO CON, 07/05/2025, 16:36. FINDINGS: Image quality: Diagnostic. CSF spaces: Basal cisterns are patent. No extra-axial fluid collections. The ventricles are symmetric in size and shape. Brain: Stable appearance of deep brain stimulators. No intracranial bleeds or mass effect. There is cerebral volume loss, with resultant ventricular and sulcal prominence. There are periventricular and deep white matter chronic small vessel ischemic changes. There is intracranial internal carotid artery atherosclerosis. Skull and face: Calvarium and visualized facial bones appear intact, without suspicious lesions. Sinuses: Visualized sinuses and mastoids are clear. IMPRESSION: No acute intracranial pathology. Stable appearance of deep brain stimulators. Dictated by: Ghanshyam Pichardo M.D. on 08/02/2025 at 19:02 Approved by: Ghanshyam Pichardo M.D. on 08/02/2025 at 19:04
--- NOTE | 2025-08-02 20:16 | PC.NURSE ---
This GLOBAL ACCOUNT DIRECTOR tried to do an EKG, however because of the patient's DBS, an EKG cannot be read/performed. Nurse made aware.
--- NOTE | 2025-08-02 20:20 | PC.NURSE ---
Unable to obtain EKG. Dr Yeboah notified.
[2025-08-02] MEDS: SODIUM CHLORIDE 0.9% 1,000 ML 75 ML IV (21:49)
[2025-08-02] MEDS: TAMSULOSIN 0.4 MG CAPSULE PO (23:13)
[2025-08-02] MEDS: LOSARTAN 50 MG TABLET PO (23:14)
[2025-08-02] MEDS: CARBIDOPA-LEVODOPA ER 50/200 TABLET 1.5 EACH PO (23:17)
[2025-08-02] MEDS: METOPROLOL ER 50 MG TABLET PO (23:17)
[2025-08-02] MEDS: ATORVASTATIN 20 MG TABLET 40 MG PO (23:20)
[2025-08-03] VITALS: BP 168/67; PULSE 64; PULSE 76; RESP 16; TEMP 36.6; O2SAT 96
--- NOTE | 2025-08-03 00:31 | PC.NURSE ---
colon and rectal surgeon: Patient arrived onto floor from ED approximately 2200, accompanied by (Elvie). Patient ambulating in room w/ 1PA FWW. Denies pain, dizziness, SOB, nausea. Patient has hx of Parkinson's, tremors noted in all extremities. Deep brain stimulator on left side of chest charged, requires a charge once daily. Patient is alert & oriented to self, place, situation, & date, although is forgetful at times. Cont tele placed. Oriented to call-light, fall precautions in place.
--- NOTE | 2025-08-03 04:59 | PM.HP.1 ---
History of Present Illness History of Present Illness Date Patient Seen: 08/03/25 Time Patient Seen: 00:23 Chief complaint: Syncope Narrative: 80-year-old male with past medical history of Parkinson disease with a deep brain stimulator, hypertension, coronary disease, prostate cancer, hyperlipidemia and hairy cell leukemia presents with syncope. Per report the patient's found the patient unconscious, face down on the table and hypotensive sitting in the kitchen table. Details of the event is not clear but there is no report of any postictal confusion. By the time the patient was seen by EMS the patient was alert and oriented x 4. The patient only complaint is generalized fatigue and generalized weakness. Otherwise there is no report of any fever, chills, nausea, vomiting, diarrhea, chest pain, headache, shortness of breath. In our emergency room, the patient was hemodynamically stable. CT of the head shows no acute finding. Labs were relatively stable and benign with WBC 4.2 platelet 124 and glucose 155. Tropes were negative x 2. Due to patient's Parkinson's and constant tremors no clear EK G can be done per ER physician. The patient and the patient's family member wishes to be discharged home however after some advice by our ER physician the patient agreed to stay overnight to monitor to ensure there is no other acute finding. Chest x-ray is negative. [facility] Medical History History of urinary calculi History of prostate cancer BPH w urinary obs/LUTS Nocturnal enuresis Bladder calculus Calcification of prostate History of radiation therapy Urinary incontinence Lower urinary tract symptoms Hx of chest pain Coronary artery disease Acute non-ST elevation myocardial infarction (NSTEMI) Headache Chronic low back pain with sciatica Paresthesias in left hand CVA (cerebral vascular accident) Hypertension Hairy cell leukemia Parkinsons disease Surgical History S/P deep brain stimulator placement (09/16/14) S/P TURP History of tonsillectomy Social History marital status: number of children: 2 household members: spouse occupational status: previously employed and other Smoking Status: Former smoker Tobacco: How many years used: 5 alcohol intake: never substance use type: does not use caffeine: No Type(s) of exercise: walking frequency: other Meds Home Medications and Allergies Home Medications ?Medication ?Instructions ?Recorded ?Confirmed ?Type acetaminophen 325 mg tablet 325 mg PO Q6H PRN Pain (Scale 06/26/18 08/02/25 History (Tylenol) Score 1-3) carbidopa 25 mg-levodopa 100 mg 50 - 200 tab PO BEDTIME 07/14/20 08/02/25 History disintegrating tablet parkinson's symptoms losartan 50 mg tablet 50 mg PO BID #180 tabs 02/02/21 08/02/25 Rx metoprolol succinate 50 mg 50 mg PO BID #90 tabs 02/16/22 08/02/25 Rx tablet,extended release 24 hr isosorbide mononitrate 30 mg 30 ea PO DAILY 02/15/23 08/02/25 History tablet,extended release 24 hr Disabled Parking Permit #1 ea 03/31/24 08/02/25 Rx carbidopa ER 50 mg-levodopa 200 mg 1 tab PO QID 08/14/24 08/02/25 History tablet,extended release atorvastatin 40 mg tablet 40 mg PO DAILY 02/11/25 08/02/25 History rivastigmine 4.6 mg/24 hour 4.6 mg transdermal DAILY 02/11/25 08/02/25 History transdermal patch zonisamide 25 mg capsule 25 mg PO DAILY 02/11/25 08/02/25 History amlodipine 2.5 mg tablet 2.5 mg PO BID 03/15/25 08/02/25 History oxycodone-acetaminophen 5 mg-325 1 tab PO Q6H PRN pain #10 tabs 07/09/25 08/02/25 Rx mg tablet tamsulosin 0.4 mg capsule (Flomax) 0.4 mg PO BEDTIME 08/02/25 08/02/25 History Allergies Allergy/AdvReac Type Severity Reaction Status Date / Time adhesive tape Allergy Intermediate Blister Verified 08/02/25 13:08 cefuroxime Allergy Mild rash/ Verified 08/02/25 13:08 itching codeine (CODEINE) Allergy Mild NAUSEA Verified 08/02/25 13:08 clindamycin AdvReac N/V Verified 08/02/25 13:08 Review of Systems Review of Systems ROS: Yes All systems reviewed with the patient and are negative except as otherwise documented Exam Vital Signs (past 8 hours): - 08/02/25 21:04 08/02/25 22:04 08/02/25 23:14 Temperature 97.1 F L 97.1 F L Pulse Rate 75 75 76 Respiratory Rate 16 16 Blood Pressure 169/80 H 169/80 H 142/122 H Pulse Oximetry 96 96 Oxygen Flow Rate 0 0 08/03/25 00:00 08/03/25 00:00 Temperature 97.8 F Pulse Rate 76 64 Respiratory Rate 16 Blood Pressure 168/67 H Pulse Oximetry 96 Oxygen Flow Rate 0 Oxygen Delivery Method Room Air Oxygen Flow Rate 0 Narrative Exam Narrative: Physical Exam: GENERAL: The patient is not in any acute distressed. Awake and alert. HEENT: Nonicteric sclerae, PERRLA, EOMI. Oropharynx clear. Moist mucous membranes. Conjunctivae appear well perfused. HEART: Regular rate and rhythm without murmurs. No lower extremities edema. LUNGS: Clear to auscultation bilaterally. No wheezing, crackles or rhonchi ABDOMEN: Soft, positive bowel sounds, nontender. SKIN: No rash, no excessive bruising, petechiae, or purpura. NEUROLOGIC: AxO x 3. Cranial nerves II-XII intact without motor/sensory deficit. Objective Labs 08/02/25 13:15 08/02/25 13:15 Labs: Laboratory Results - last 24 hr 08/02/25 08/02/25 13:15 16:37 WBC 4.2 L RBC 4.20 L Hgb 12.9 L Hct 37.4 L MCV 89.1 MCH 30.6 MCHC 34.4 RDW 13.2 Plt Count 124 L Neut % (Auto) 75.8 H Lymph % (Auto) 12.4 L [place] % (Auto) 8.2 Eos % (Auto) 2.8 Baso % (Auto) 0.8 Neut # (Auto) 3200 Lymph # (Auto) 500 L [place] # (Auto) 300 Eos # (Auto) 100 Baso # (Auto) 0 PT 12.7 H INR 1.1 APTT 21 L Sodium 138 Potassium 4.3 Chloride 106 Carbon Dioxide 24 BUN 25 H Creatinine 1.18 Estimated GFR > 60 BUN/Creatinine Ratio 21.2 Glucose 155 H Calcium 8.6 Magnesium 2.1 Total Bilirubin 1.3 AST 26 ALT 9 Alkaline Phosphatase 76 Total Creatine Kinase 34 L Troponin I < 0.012 < 0.012 NT-Pro-B Natriuret Pep 309 Total Protein 6.1 L Albumin 3.5 Globulin 2.6 Albumin/Globulin Ratio 1.3 Lipase 49 Assessment & Plan Assessment & Plan narrative: Syncope. Admit the patient to medical telemetry under observation. Unclear etiology. CT head shows no acute finding. Tropes negative x 2. No signs of infection or sepsis. Patient is nonfocal on exam. Will monitor patient overnight with IV fluid. PT OT. Will check third troponin in AM. Hypertension. Monitor blood pressure and resume home medication accordingly. Parkinson's disease. Resume carbidopa levodopa. BPH. Resume home Flomax. Hyperlipidemia. Resume home statin. DVT prophylaxis Hep SQ CODE STATUS full code. Disposition likely home in 1 to 2 days - As the provider of this telehealth evaluation, requested by the patient's evaluating physician, I attest that I introduced myself to the patient, provided my credentials and determined that telemedicine via a real-time, 2 way interactive audio and video platform is an appropriate and effective means of providing this service. - I reviewed the patient's chart and had a discussion with the member of the patient's treatment team. - The patient and I mutually agreed with continuation of this evaluation via telemedicine. The patient consented for the telemedicine evaluation. - This virtual encounter was taken place from [place] by Dr. Yifan Barroso. The patient was evaluated at [facility]. The encounter was approximately 35 minutes. The nurse was present during the entire time of the encounter and was able to assists with exam/stethoscope. Time-Based Coding :: [TOTAL MINUTES] spent with patient and on the chart (including review of chart, obtaining history, exam, reviewing outside data, placing orders, documenting exam and treatment plan, and counseling patient) on [DATE]. Quality VTE Deep Vein Thrombosis/Pulmonary Embolism Present on Admission: No
[2025-08-03 05:29] LABS: Add Manual Diff / Slide Review NO; Hematocrit 37.0 % (41-53); Hemoglobin 13.1 g/dL (13.5-17.5); Lymphocytes Absolute Auto 700 /uL (1100-4500); Mean Corpuscular HGB Conc 35.4 % (30-36); Mean Corpuscular Hemoglobin 31.0 PG (26-34); Mean Corpuscular Volume 87.4 fL (80-100); Platelet Count 118 X10^3/uL (150-400)
[2025-08-03 05:50] LABS: Troponin I 0.015 ng/mL (0.01-0.034)
[2025-08-03 06:12] LABS: Blood Urea Nitrogen 19 mg/dL (9-20); Calcium 8.8 mg/dL (8.4-10.2); Carbon Dioxide 26 mmol/L (22-32); Chloride 105 mmol/L (98-107); Estimated Glomerular Filt Rate > 60 mL/min (>60); Glucose 97 mg/dL (70-99); HEMOLYSIS < 15 (0-50); Potassium 3.8 mmol/L (3.4-5.1); Sodium 136 mmol/L (137-145)
[2025-08-03 07:00] VITALS: BP 167/75; PULSE 64; RESP 16; TEMP 36; O2SAT 95
[2025-08-03] MEDS: ZONISAMIDE 25 MG CAPSULE PO (09:20)
[2025-08-03 09:21] VITALS: BP 136/64; PULSE 66
[2025-08-03] MEDS: METOPROLOL ER 50 MG TABLET PO (09:21)
[2025-08-03] MEDS: HEPARIN 5,000 UNIT/ML VIAL 5000 UNIT SUBCUT (09:21)
[2025-08-03] MEDS: ISOSORBIDE MONONITRATE ER 30 MG TABLET PO (09:21)
[2025-08-03] MEDS: CARBIDOPA-LEVODOPA ER 50/200 TABLET 1 EACH PO ×2 (09:21→12:17)
[2025-08-03] MEDS: LOSARTAN 50 MG TABLET PO (09:29)
--- NOTE | 2025-08-03 10:45 | PT.IIE ---
Surgical History (Last Reviewed 08/02/25 @ 23:55 by Mariana Yeboah MD) History of tonsillectomy S/P deep brain stimulator placement (09/16/14) S/P TURP Medical History (Last Reviewed 08/02/25 @ 23:55 by Mariana Yeboah MD) Acute non-ST elevation myocardial infarction (NSTEMI) Bladder calculus BPH w urinary obs/LUTS Calcification of prostate Chronic low back pain with sciatica Coronary artery disease CVA (cerebral vascular accident) Hairy cell leukemia Headache History of prostate cancer History of radiation therapy History of urinary calculi Hx of chest pain Hypertension Lower urinary tract symptoms Nocturnal enuresis Paresthesias in left hand Parkinsons disease Urinary incontinence Physical Therapy Inpatient Evaluation/Re-Eval M1 PT/OT-IP Prior Functional Status Start: 08/03/25 13:00 Freq: NEEDED Status: Active Protocol: Document 08/03/25 10:45 AB (Rec: 08/03/25 13:13 AB [id number]) Medical Review Prior Functional Status Medical History Yes Reviewed Communication able to make needs known; slow to respond to questions Mobility and Gait pt stated that she usually uses a tripod cane for mobility but uses a FWW when he goes for a walk to the park. spouse stated that pt also hold on to her when pt walks outdoors and uses the tripod cane. Activities of Daily per OT note: Pt able to do ADL's and SBA for showering Living and IADL's from his . Pt's does all ADL needs. Social History Household Members spouse Living Arrangements House Number of Floors ( Two Floors Floors) Number of Stairs To 1 step to enter; will stay on main level of the house Enter/Railing? Home Environment Standard Height Toilet,Walk in Shower,Built-In Shower Seat Home Equipment Front Wheel Walker,Hand Held Shower,Grab Bars Near Toilet,Grab Bars In Shower Additional Social pt has a tripod cane History Comment pt has a toilet safety frame M2 PT-IP Current Condition Start: 08/03/25 13:00 Freq: NEEDED Status: Active Protocol: Document 08/03/25 10:45 AB (Rec: 08/03/25 13:13 AB [id number]) Physical Therapy Current Condition Current Condition Evaluation Date 08/03/25 Treatment Diagnosis syncope; difficulty in walking Onset Date 08/02/25 M3 PT-IP Subjective Start: 08/03/25 13:00 Freq: NEEDED Status: Active Protocol: Document 08/03/25 10:45 AB (Rec: 08/03/25 13:13 AB [id number]) Subjective Physical Therapy Visit Type Type Initial Evaluation Visit Start Time 10:45 Visit Stop Time 12:10 Number of [place] [facility] Visits 0 Physical Therapy Visit Comments Patient Comments agreeable to do PT M4 PT-IP Mobility and Gait Start: 08/03/25 13:00 Freq: NEEDED Status: Active Protocol: Document 08/03/25 10:45 AB (Rec: 08/03/25 13:13 AB [id number]) PT-Bed Mobility Assessment Supine to Sit Supine to Sit Standby Assistance Sit to Supine Sit to Supine Standby Assistance PT-Transfer Assessment Sit to and From Stand Sit to and from Contact Guard Assistance,Minimal Assistance,1 Person Stand Assistance,Use of Upper Extremities Equipment Transfer Assistive Gait Belt,Front Wheeled Walker Device Orthotic/Prosthetic No Devices or Brace: Transfers Transfer Destination Bed,Chair Transfer Technique ambulated Transfer Ability Level of Assist Contact Guard Assistance,1 Person Assistance,Use of Upper Extremities Comments Mobility Comments pt sitting on the chair and agreeable to do PT. obtained PLOF and home set up. spouse in room and also provided info. BP sittin/75. completed sit to stand min A and cues. increase retrolean and cues to correct. BP in standin/55. no c/o dizziness/ lightheadedness. pt stated that he just feels weak. pt able to stand for ~ 2 more minutes and BP checked again: 111/51. pt ambulated to the EOB ~ 12 ft using FWW CGA and sat on EOB. completed sit<>supine SBA. sit to stand from EOB CGA to min A and cues and ambulated back to chair using FWW CGA. BP checked: 135/68. positioned pt on the chair and set up for lunch. call light and table placed within reach. left pt with spouse in room. Gait Assessment Gait Gait Assistance Contact Guard Assist Required: Distance (Feet) 12 Able to Maintain Yes Weight Bearing Status During Gait Assistive Devices Assistive Device Gait Belt,Front Wheeled Walker Orthotic/Prosthetic No Devices or Brace: Gait Deviations General Gait Pattern Decreased Stride Length,Decreased Feet Clearance,Step- to Gait Factors Limiting Gait Function Factors Limiting Decreased Activity Tolerance,Decreased Strength, Gait Function Difficulty Following Directions,Limited Range of Motion ,Poor Balance,Poor Safety Awareness PT-Balance Assessment Sitting Balance and Reactions Static Sitting Normal Balance Ability Dynamic Sitting Good Balance Ability Standing Balance and Reactions Static Standing Fair Balance Ability Dynamic Standing Fair Balance Ability Device Used FWW M5 PT-IP Objective Assessments Start: 08/03/25 13:00 Freq: NEEDED Status: Active Protocol: Document 08/03/25 10:45 AB (Rec: 08/03/25 13:13 AB [id number]) Orientation Orientation/Cognition Level of Alertness Alert Orientation Name,Place,Situation Safety Awareness Decreased Safety Awareness Comments slow to respond to questions and instructions Gross Range of Motion Lower Extremity ROM Assessment Within Functional Limits Strength Lower Extremity Strength Assessment Within Functional Limits Muscle Tone Muscle Tone WNL Yes M6 PT-IP Treatment Start: 08/03/25 13:00 Freq: NEEDED Status: Active Protocol: Document 08/03/25 10:45 AB (Rec: 08/03/25 13:13 AB [id number]) Physical Therapy Treatment Education Education Provided Safety M7 PT-IP Assessment and Plan Start: 08/03/25 13:00 Freq: NEEDED Status: Active Protocol: Document 08/03/25 10:45 AB (Rec: 08/03/25 13:13 AB [id number]) PT Summary Assessment and Plan Potential Rehabilitation Fair Potential Status of Condition Evolving at Evaluation Summary Impairments Pain,ROM,Strength,Balance,Coordination,Sensation,Tone, Cognition,Bed Mobility,Transfers,Gait,Activity Tolerance Assessment Summary pt is a 80 y/o M who is admitted for syncope. pt with decrease in BP in standing but did not c/o dizziness/ lightheadedness. pt requiring CGA to min A with ambulation using FWW. pt plans to go home and spouse to assist him. will continue to assess progress. Goals Bed Mobility Goal Independent Transfer Goal Independent,Front Wheeled Walker Gait Goal Independent,Front Wheel Walker Gait Distance 150 Other Goals improve transfers and ambulation using tripod cane/LRAD ~ 150 ft SBA up/down 1 step using AD SBA Days to Meet Goals 10 Frequency of Treatment Frequency Of Once a Day Treatment Treatment Plan Physical Therapy Bed Mobility Training,Transfer Training,Gait Training, Treatment Plan Therapeutic Exercise,Balance Retraining,Discharge Planning,Hot or Cold Pack,Neuromuscular Re-ed, Coordination Retraining,Manual Therapy Precautions Other Precautions falls; orthostatic hypotension Recommendations To Nursing Amount of Assist 1 Person Assist Needed Discharge Recommendations PT Discharge Home with 17/06 Assist Available,Home Health Recommendations Transportation Needs Private Vehicle at Discharge - PT assist 1
--- NOTE | 2025-08-03 11:47 | OT.IP.EVAL ---
Past Medical History (Last Reviewed 08/02/25 @ 23:55 by Mariana Yeboah MD) Acute non-ST elevation myocardial infarction (NSTEMI) Bladder calculus BPH w urinary obs/LUTS Calcification of prostate Chronic low back pain with sciatica Coronary artery disease CVA (cerebral vascular accident) Hairy cell leukemia Headache History of prostate cancer History of radiation therapy History of urinary calculi Hx of chest pain Hypertension Lower urinary tract symptoms Nocturnal enuresis Paresthesias in left hand Parkinsons disease Urinary incontinence Surgical History (Last Reviewed 08/02/25 @ 23:55 by Mariana Yeboah MD) History of tonsillectomy S/P deep brain stimulator placement (09/16/14) S/P TURP Occupational Therapy Inpatient Evaluation/Re-Eval M1 PT/OT-IP Prior Functional Status Start: 08/03/25 12:33 Freq: NEEDED Status: Active Protocol: Document 08/03/25 12:33 [facility] (Rec: 08/03/25 12:46 [facility] Desktop) Medical Review Prior Functional Status Communication I Mobility and Gait Pt uses a hurry cane, FWW, and at times does not use a device to walk with. Pt's states he tends to carry devices or forgets to use it. Activities of Daily Pt able to do ADL's and SBA for showering from his Living and IADL's . Pt's does all ADL needs. Social History Household Members spouse Living Arrangements House Number of Floors ( Two Floors Floors) Number of Stairs To 1 step to enter from the garage. Enter/Railing? Pt stays on the main floor. Home Environment Standard Height Toilet,Walk in Shower,Built-In Shower Seat Home Equipment Front Wheel Walker,Four Wheel Walker,Straight Cane,Hand Held Shower,Grab Bars Near Toilet,Grab Bars In Shower M2 OT-IP Current Condition Start: 08/03/25 12:33 Freq: Status: Active Protocol: Document 08/03/25 12:33 [facility] (Rec: 08/03/25 12:46 [facility] Desktop) Occupational Therapy Current Condition Current Condition Evaluation Date 08/03/25 Treatment Diagnosis Syncope Diagnosis Onset Date 08/02/25 M3 OT- IP Subjective and Pain Start: 08/03/25 12:33 Freq: Status: Active Protocol: Document 08/03/25 12:33 [facility] (Rec: 08/03/25 12:46 [facility] Desktop) OT- Subjective Occupational Therapy Visit Type Type Initial Evaluation Visit Start Time 11:18 Visit Stop Time 11:47 Occupational Therapy Visit Comments Patient Comments Pt agreed to get up for oral care needs. Patient/Caregiver To go home Goals OT Pain Assessment Pain When Pain Assessed At Rest Pain Present Pain Present Denied Pain M4 OT- IP ADL's Start: 08/03/25 12:33 Freq: Status: Active Protocol: Document 08/03/25 12:33 [facility] (Rec: 08/03/25 12:46 [facility] Desktop) OT [id number] Comments OT Self-Feeding Not at meal time. Comments OT ADL-Grooming General Evaluation Grooming Ability Independent Comments OT Grooming Comments ABle to do while standing at the sink with FWW. OT ADL-Oral Care General Eval Oral Care Ability Independent Comments Oral Care Comments While standing at sink with FWW. OT ADL-Dressing General Eval Lower Body Dressing Standby Assistance Ability Comments OT Dressing Comments Pt able to radha/doff socks while seated. OT ADL-Toileting Comments OT Toileting Not performed. Comments OT ADL-Bathing Comments OT Bathing Comments Not performed. M5 OT- IP IADL's Start: 08/03/25 12:33 Freq: Status: Active Protocol: Document 08/03/25 12:33 [facility] (Rec: 08/03/25 12:46 [facility] Desktop) OT-Instrumental Activities of Daily Living Home Safety Awareness Ability to Problem Able to Problem Solve Solve Emergency Situations Home Safety Comments Pt able to answer home safety questions. Medication Management Medication Caregiver Administers Management Money Management Money Management Caregiver Provides Assistance Meal Preparation Meal Preparation Caregiver Provides Assist Clinical Pharmacy Technician Clinical Pharmacy Technician Caregiver Provides Assist Driving Driving Caregiver Provides Assist M6 OT- IP Functional Cognition Start: 08/03/25 12:33 Freq: Status: Active Protocol: Document 08/03/25 12:33 [facility] (Rec: 08/03/25 12:46 [facility] Desktop) Cognitive Factors Limiting Selfcare Function Cognitive Ability Level of Alertness Alert Patient Orientation Name,Age,Birthday,Year,Place,Situation Attention Span Capable of Focused Attention,Capable of Sustained Ability Attention Ability to Follow Able to Follow One Step Commands Commands Safety Awareness Underestimates Need for Assistance Cognitive Comments Cognitive Assessment Pt decreased safety awareness and tends to carry the Comments FWW versus put it on the floor. OT- Vision and Hearing OT- Hearing Assessment OT- Hearing WFL Assessment OT- Vision Assessment Visual Acuity Glasses All The Time Visual Attentiveness WFL Occular Pursuits WFL Visual Convergence WFL Visual Amaro WFL Diplopia Absent M7 OT- IP Mobility and Balance Start: 08/03/25 12:33 Freq: Status: Active Protocol: Document 08/03/25 12:33 [facility] (Rec: 08/03/25 12:46 [facility] Desktop) OT- Bed Mobility Assessment Supine to Sit Supine to Sit Assist Standby Assistance OT-Transfer Assessment Sit to and From Stand Sit to and from Standby Assistance Stand Transfers Transfer Ability Standby Assistance,Contact Guard Assistance Technique Transfer Destination Bed,Chair Transfer Technique Stand Step Pivot Devices Transfer Assistive Gait Belt,Front Wheeled Walker Devices Comments Mobility Comments Pt BP supine 156/69, sitting 146/74, standing 134/66, after up at the sink 112/76 and sitting 134/74. Pt not symptomatic but just states feels tired. VC to push up from surfaces to come to stand and to have the FWW in front of him and slide in on the floor versus carrying it. Has pt walk to the sink without a device and needing CGA for balance as a little unsteady on his feet. SBA with FWW but cues to use it properly. OT- Balance Assessment Sitting Balance and Reactions Static Sitting Normal Balance Ability Dynamic Sitting Normal Balance Ability Standing Balance and Reactions Static Standing Good Balance Ability Dynamic Standing Fair Balance Ability M8 OT- IP Objective Assessments Start: 08/03/25 12:33 Freq: Status: Active Protocol: Document 08/03/25 12:33 [facility] (Rec: 08/03/25 12:46 [facility] Desktop) OT Gross Range of Motion Upper Extremity Range of Motion Assessment Within Functional Limits OT Strength Upper Extremity Strength Assessment Within Functional Limits OT- Coordination Assessment Upper Extremity Finger to Nose Test Within Functional Limits Finger Tapping Test Within Functional Limits Comments Coordination Impaired for diadochokinesis. Comments OT Sensation Assessment Comments Summary Comments Intact for light touch. Edema Edema Absent M9 OT- IP Assessment and Plan Start: 08/03/25 12:33 Freq: Status: Active Protocol: Document 08/03/25 12:33 [facility] (Rec: 08/03/25 12:46 [facility] Desktop) OT Summary Assessment and Plan Potential Rehabilitation Good Potential Analytic Complexity Moderate at Evaluation Summary OT Impairments Balance,Functional Mobility,Dressing,Toileting,Bathing, Toilet Transfers,Shower Transfers Progress Towards Progressing Toward Goals Goals Goals Self-Feeding Goal Independent Grooming Goal Independent Dressing Goal Independent Toileting Goal Independent Bathing Goal Standby Assistance Toilet Transfer Goal Independent Shower Transfer Goal Independent Days to Meet Goals 5 Frequency of Treatment Other frequency 5x/week Treatment Plan OT Treatment Plan ADL Training,Functional Mobility,Patient/Family Education,Discharge Planning Other Treatment Pt able to recall safe use of FWW/4ww during ADL Recommendations and mobility needs. Next Treatment Focus Discharge Recommendations OT Discharge Home with Assistance /17/06 available assist Recommendations Transportation Needs Private Vehicle at Discharge
--- NOTE | 2025-08-03 13:04 | P.DS_ITS ---
History of Present Illness History of Present Illness Chief complaint: Syncope Narrative: From H&P: 80-year-old male with past medical history of Parkinson disease with a deep brain stimulator, hypertension, coronary disease, prostate cancer, hyperlipidemia and hairy cell leukemia presents with syncope. Per report the patient's found the patient unconscious, face down on the table and hypotensive sitting in the kitchen table. Details of the event is not clear but there is no report of any postictal confusion. By the time the patient was seen by EMS the patient was alert and oriented x 4. The patient only complaint is generalized fatigue and generalized weakness. Otherwise there is no report of any fever, chills, nausea, vomiting, diarrhea, chest pain, headache, shortness of breath. In our emergency room, the patient was hemodynamically stable. CT of the head shows no acute finding. Labs were relatively stable and benign with WBC 4.2 platelet 124 and glucose 155. Tropes were negative x 2. Due to patient's Parkinson's and constant tremors no clear EK G can be done per ER physician. The patient and the patient's family member wishes to be discharged home however after some advice by our ER physician the patient agreed to stay overnight to monitor to ensure there is no other acute finding. Chest x-ray is negative. Discharge Providers Provider Date of admission: 08/02/25 20:12 Discharge Date: 08/03/25 Primary care physician: Anson Benitez MD Consults: 08/02/25 20:49 Consult to Occupational Therapy Evaluate & Treat Comment: Physician Instructions: Evaluate and treat Consult to Physical Therapy Evaluate & Treat Comment: Physician Instructions: Evaluate and Treat Discharge provider: Emory Engel MD Summary Hospital Course Discharge Diagnosis: 1. Syncope. Improved. 2. Hypertension. Stable. 3. Parkinson's disease. Stable. 4. BPH. Stable. 5. Hyperlipidemia. Stable. Hospital Course: He was admitted with a syncopal episode. He was in sinus rhythm on telemetry overnight had no recurrent symptoms. He was given a small amount of IV fluids. The patient will have 1 of his blood pressure medications reduced. Amlodipine is currently a 2.5 mg b.i.d. and we will go down to once a day. The we will monitor he was liquid intake to be short sufficient, and blood pressure checks will be done twice. Close follow up with primary care and please blood pressure checks with. Status at Discharge Cognitive/behavioral status at discharge: oriented Functional status at discharge: uses cane/walker Overall status at discharge: patient is back to baseline Time Spent with Patient Time spent: Greater than 30 minutes Exam Vital Signs (past 8 hours): - 08/03/25 07:00 08/03/25 09:21 Temperature 96.8 F L Pulse Rate 64 66 Respiratory Rate 16 Blood Pressure 167/75 H 136/64 Pulse Oximetry 95 Oxygen Flow Rate 0 Oxygen Delivery Method Room Air Oxygen Flow Rate 0 Narrative Exam Narrative: NAD, alert and oriented. Fluent speech. Lungs are clear, normal rate and effort. Heart is regular, no murmur gallop or rub. Abdomen is soft, non distended. Extremities are free of edema. Parkinson's features with slow speech, and masked facies. Objective ECG Impression: Telemetry: Normal sinus rhythm without arrhythmia or bradycardia throughout his stay. Imaging CT scan - head: Radiologist's impression: No acute abnormalities. Labs 08/03/25 05:13 08/03/25 05:13 Labs: Laboratory Results - last 24 hr 08/02/25 08/02/25 08/03/25 13:15 16:37 05:13 WBC 4.2 L 4.9 RBC 4.20 L 4.23 L Hgb 12.9 L 13.1 L Hct 37.4 L 37.0 L MCV 89.1 87.4 MCH 30.6 31.0 MCHC 34.4 35.4 RDW 13.2 13.0 Plt Count 124 L 118 L Neut % (Auto) 75.8 H 74.3 Lymph % (Auto) 12.4 L 13.9 L [place] % (Auto) 8.2 7.8 Eos % (Auto) 2.8 3.5 Baso % (Auto) 0.8 0.5 Neut # (Auto) 3200 3600 Lymph # (Auto) 500 L 700 L [place] # (Auto) 300 400 Eos # (Auto) 100 200 Baso # (Auto) 0 0 PT 12.7 H INR 1.1 APTT 21 L Sodium 138 136 L Potassium 4.3 3.8 Chloride 106 105 Carbon Dioxide 24 26 BUN 25 H 19 Creatinine 1.18 0.84 Estimated GFR > 60 > 60 BUN/Creatinine Ratio 21.2 22.6 H Glucose 155 H 97 Calcium 8.6 8.8 Magnesium 2.1 Total Bilirubin 1.3 AST 26 ALT 9 Alkaline Phosphatase 76 Total Creatine Kinase 34 L Troponin I < 0.012 < 0.012 0.015 NT-Pro-B Natriuret Pep 309 Total Protein 6.1 L Albumin 3.5 Globulin 2.6 Albumin/Globulin Ratio 1.3 Lipase 49 PFSH Medical History History of urinary calculi History of prostate cancer BPH w urinary obs/LUTS Nocturnal enuresis Bladder calculus Calcification of prostate History of radiation therapy Urinary incontinence Lower urinary tract symptoms Hx of chest pain Coronary artery disease Acute non-ST elevation myocardial infarction (NSTEMI) Headache Chronic low back pain with sciatica Paresthesias in left hand CVA (cerebral vascular accident) Hypertension Hairy cell leukemia Parkinsons disease Surgical History S/P deep brain stimulator placement (09/16/14) S/P TURP History of tonsillectomy Social History marital status: number of children: 2 household members: spouse occupational status: previously employed and other Smoking Status: Former smoker Tobacco: How many years used: 5 alcohol intake: never substance use type: does not use caffeine: No Type(s) of exercise: walking frequency: other Discharge Assessment & Plan Assessment and Plan Assessment: 1. Syncope. Improved. 2. Hypertension. Stable. Plan of Treatment: Discharge home, only 1 medication change. Amlodipine will be changed from 2.5 b.i.d. to once daily. Blood pressure log and close follow up with primary care. Encourage plenty of fluids. He likely also has some element of orthostasis related to his Parkinson's. Discharge Plan Discharge Plan Patient Disposition: Home Provider Discharge Comment: Stable for discharge home. Discharge orders & Medications Prescriptions: New amlodipine 2.5 mg tablet 2.5 mg PO DAILY Qty: 30 2RF Continued metoprolol succinate 50 mg tablet extended release 24 hr 50 mg PO BID Qty: 90 1RF (DME) Disabled Parking Permit See Rx Instructions .ROUTE .MEDSUPPLY Qty: 1 0RF Rx Instructions: I find this patient to be medically disabled and qualified for Disabled Parking as indicated and signed on the accompanying Disabled Parking Application for Individuals. losartan 50 mg tablet 50 mg PO BID Qty: 180 3RF isosorbide mononitrate 30 mg tablet extended release 24 hr 30 ea PO DAILY Patient Comments: TAKE ONE TABLET BY MOUTH ONE TIME DAILY rivastigmine 4.6 mg/24 hour patch 24 hour 4.6 mg transdermal DAILY atorvastatin 40 mg tablet 40 mg PO DAILY zonisamide 25 mg capsule 25 mg PO DAILY acetaminophen [Tylenol] 325 mg Tablet 325 mg PO Q6H PRN (Reason: Pain (Scale Score 1-3)) carbidopa-levodopa 50-200 mg Tablet Extended Release 1 tab PO QID Patient Comments: Pt takes 0800/1200/1700/2100 Rx Instructions: divide evenly over waking hours 1.5 TABLETS AT BEDTIME tamsulosin [Flomax] 0.4 mg capsule 0.4 mg PO BEDTIME oxycodone-acetaminophen 5-325 mg tablet 1 tab PO Q6H PRN (Reason: pain) Qty: 10 0RF Discontinued amlodipine 2.5 mg tablet 2.5 mg PO BID Follow up/Referrals: Anson Benitez MD [Primary Care Provider, Family Practice] Diet/Activity/Treatments Diet: Regular Visit Report/Discharge Packet Instructions: DI for Syncope in Adults (Fainting) Stand Alone Forms: Patient Portal/API Discharge Data Primary Care Provider: Anson Benitez Attending Provider: Yifan Barroso Admit Date/Time: 08/02/25 20:12 Quality VTE Deep Vein Thrombosis/Pulmonary Embolism Present on Admission: No
--- NOTE | 2025-08-03 13:20 | PC.NURSE ---
Discharge instructions reviewed with patient and his . His Elvie states understanding and has no further questions or concerns. She will call PCP [facility] office to schedule a follow up appointment. Patient escorted out via wheelchair with all his belongings to home with his .
--- NOTE | 2025-08-03 14:11 | CM.DANOTE ---
Initial DCP Assessment Visit Note Reviewed EMR and team rounds for pt's medical status and updates. Pt lives independently at baseline with his spouse in their own home here in [place]. He was medically cleared for d/c today, and his transported him home. No CM d/c needs were identified during his stay. Payor: Medicare PCP: Dr. Benitez Pt is a 80 year-old M with a hx of Parkinson's disease, HTN, CAD, prostate cancer, and hairy cell leukemia. He was found unconscious by his at the kitchen table, he has no recollection of this. He presented to the ED via EMS and was alert/oriented by the time he arrived. No abnormalities were found in labs or on imaging. Plan was made to admit for cardiac telemetry and monitoring of heart enzymes. Today he was back to baseline with no repeat syncope and discharged home. Discharge Planning/Care Management CM Discharge Assessment Start: 08/02/25 20:56 Freq: Status: Discharge Protocol: Document 08/03/25 14:08 DPL (Rec: 08/03/25 14:10 DPL [id number]) Discharge Planning Assessment Assigned Discharge [facility] [employer] Supervisor Provider Dr. Benitez Insurance Medicare Advance Directives? Yes Advance Directives No on File History Provided By Medical Record Has Patient been No admitted in last 30 days? Prior Living House Arrangements Household Members spouse Type of Drives own vehicle transporation used prior to admit Independent with ADL Yes 's Is patient alert and Yes oriented? Comment N/A Caregiver for No Another Comment No anticipated d/c needs identified at this time. Barriers to No Discharge Discharge Plan Home Transportation Spouse Arrangement If patient plan is Yes home with home health: Has signed face to face form been completed? Whiteboard Updated Yes in Patient Room with name and ext. # of Service Advocate Contact Review Status In Process Please Provide Date 08/03/25 Initial DC Assessment Was Performed
== END 2025-08-03 13:21 | disposition home or self-care (01) ==
LOC: ED 15:12 → AC 20:13
PROVIDERS: Emergency Medicine; Admitting Provider Internal Medicine; Emergency Provider Emergency Medicine; Family Provider Family Medicine; PCP Family Medicine; Referring Provider Emergency Medicine; Visit Provider Internal Medicine
DX: R55 Syncope and collapse (principal); G20.A1 Parkinson's disease without dyskinesia, without mention of fluctuations; I10 Essential (primary) hypertension; E78.5 Hyperlipidemia, unspecified; N40.0 Benign prostatic hyperplasia without lower urinary tract symptoms; I25.10 Atherosclerotic heart disease of native coronary artery without angina pectoris; Z85.46 Personal history of malignant neoplasm of prostate; Z85.6 Personal history of leukemia; I25.2 Old myocardial infarction; Z96.82 Presence of neurostimulator; Z87.891 Personal history of nicotine dependence
CPT/HCPCS: 36415; 70450; 71045; 80048; 80053; 82550; 83690; 83735; 83880; 84484; 85025; 85610; 85730; 96360; 96361; 96372; 97162; 97166; 97530; 99284; G0378; A9270; J1644

== ENCOUNTER 2025-08-11 10:16 | Emergency (ER) | payer MEDICARE, OTHER, SELFPAY ==
[2025-08-02 20:56] VITALS: BMI 24.0
[2025-08-11] VITALS (14 sets, daily range): BP systolic 117–169; BP diastolic 65–79; PULSE 56–65; RESP 8–33; TEMP 36.9; O2SAT 93–97; BMI 25.0
--- NOTE | 2025-08-11 10:23 | DI.RAD.S_ITS ---
PROCEDURE: XR CHEST 1V INDICATIONS: Chest Pain TECHNIQUE: One view of the chest was acquired. COMPARISON: [facility], CT, CT HEAD/BRAIN WO CON, 08/02/2025, 18:46. [facility], CR, XR CHEST 1V, 08/02/2025, 13:24. FINDINGS: Surgical changes and devices: Deep brain stimulator generator Lungs and pleura: Lungs are clear. Mild diffuse interstitial prominence. No pleural effusions or pneumothorax. Mediastinum: Mediastinal contours appear normal. Heart size is normal. Bones and chest wall: No suspicious bony lesions. Overlying soft tissues appear unremarkable. IMPRESSION: Mild diffuse interstitial prominence. Dictated by: Mario Bruce M.D. on 08/11/2025 at 10:57 Approved by: Mario Bruce M.D. on 08/11/2025 at 10:57
--- NOTE | 2025-08-11 10:29 | PC.NURSE ---
Baseline parkinson, restless upon arrival. Reports waking with some jaw pain unable to recall which side. Denies chest pain or SOB. Patient denies blood in stool. Appears pale, dry mucous membrane. Medics report positive orthostatic blood pressures. Received approx 250ml of Normal Saline prior to arrival
--- NOTE | 2025-08-11 10:30 | PC.NURSE ---
Patient has a deep brain stimulator implant. Will need to turn off in order to obtain 12 lead EKG. has pamphlets with instructions if need be.
[2025-08-11 10:32] LABS: Add Manual Diff / Slide Review NO; Hematocrit 38.2 % (41-53); Hemoglobin 13.4 g/dL (13.5-17.5); Lymphocytes Absolute Auto 700 /uL (1100-4500); Mean Corpuscular HGB Conc 35.1 % (30-36); Mean Corpuscular Hemoglobin 30.7 PG (26-34); Mean Corpuscular Volume 87.3 fL (80-100); Platelet Count 135 X10^3/uL (150-400)
[2025-08-11 10:35] LABS: INR 1.1 (0.9-1.3); Prothrombin Time 12.4 SECONDS (9.4-12.5)
[2025-08-11 10:37] LABS: PTT Partial Thromboplastin Tim 26 SECONDS (25.1-36.5)
[2025-08-11 10:39] LABS: Alanine Aminotransferase 8 IU/L (<50); Albumin 3.7 g/dL (3.5-5.0); Albumin Globulin Ratio 1.4 (1.0-2.8); Alkaline Phosphatase 82 U/L (38-126); Blood Urea Nitrogen 21 mg/dL (9-20); Calcium 9.0 mg/dL (8.4-10.2); Carbon Dioxide 27 mmol/L (22-32); Chloride 103 mmol/L (98-107); Creatine Kinase 33 U/L (55-170); Estimated Glomerular Filt Rate > 60 mL/min (>60); Globulin 2.7 g/dL (1.7-4.1); Glucose 154 mg/dL (70-99); HEMOLYSIS < 15 (0-50); Lipase 71 U/L (23-300); Magnesium 2.1 mg/dL (1.6-2.3); Potassium 4.0 mmol/L (3.4-5.1); Sodium 138 mmol/L (137-145); Total Protein 6.4 g/dL (6.3-8.2)
[2025-08-11 10:40] LABS: Lactate (Lactic Acid) 1.6 mmol/L (0.7-2.1)
[2025-08-11 10:51] LABS: NT-proBNP (BNP-Adult 18+) 351 pg/mL (<450); Troponin I < 0.012 ng/mL (0.01-0.034)
[2025-08-11] MEDS: CARBIDOPA-LEVODOPA 25/100 TABLET 2 EACH PO (12:33)
--- NOTE | 2025-08-11 13:25 | ED.GENADULT ---
HPI - General Adult General Chief complaint: Syncope Stated complaint: low BP Time Seen by Provider: 08/11/25 12:59 History of Present Illness HPI narrative: 72-year-old male brought in by ambulance for lightheadedness earlier today. Per EMS he had orthostatic hypotension with blood pressures in the 80s. He did not have any chest pain shortness of breath fevers nausea or vomiting. He now feels back to normal. Patient has a history of Parkinson's with a deep brain stimulator, hypertension coronary disease prostate cancer and leukemia. He was recently hospitalized for syncope with the discharge summary from August 03 reviewed. He remained in sinus rhythm throughout that visit and on discharge his amlodipine was titrated down mg daily. Patient is accompanied by his who assists with the history. No problems with urination, reports chronic constipation had a small bowel movement yesterday. Related Data Home Medications ?Medication ?Instructions ?Recorded ?Confirmed acetaminophen 325 mg tablet 325 mg PO Q6H PRN Pain (Scale 06/26/18 08/11/25 (Tylenol) Score 1-3) isosorbide mononitrate 30 mg 30 ea PO DAILY 02/15/23 08/11/25 tablet,extended release 24 hr carbidopa ER 50 mg-levodopa 200 mg 1 tab PO QID 08/14/24 08/11/25 tablet,extended release atorvastatin 40 mg tablet 40 mg PO DAILY 02/11/25 08/11/25 rivastigmine 4.6 mg/24 hour 4.6 mg transdermal DAILY 02/11/25 08/11/25 transdermal patch zonisamide 25 mg capsule 25 mg PO DAILY 02/11/25 08/11/25 tamsulosin 0.4 mg capsule (Flomax) 0.4 mg PO BEDTIME 08/02/25 08/11/25 Previous Rx's ?Medication ?Instructions ?Recorded losartan 50 mg tablet 50 mg PO BID #180 tabs 02/02/21 metoprolol succinate 50 mg 50 mg PO BID #90 tabs 02/16/22 tablet,extended release 24 hr Disabled Parking Permit #1 ea 03/31/24 oxycodone-acetaminophen 5 mg-325 1 tab PO Q6H PRN pain #10 tabs 07/09/25 mg tablet amlodipine 2.5 mg tablet 2.5 mg PO DAILY #30 tabs 08/03/25 Allergies Allergy/AdvReac Type Severity Reaction Status Date / Time adhesive tape Allergy Intermediate Blister Verified 08/02/25 13:08 cefuroxime Allergy Mild rash/ Verified 08/02/25 13:08 itching codeine (CODEINE) Allergy Mild NAUSEA Verified 08/02/25 13:08 clindamycin AdvReac N/V Verified 08/02/25 13:08 Patient History Medical History History of urinary calculi History of prostate cancer BPH w urinary obs/LUTS Nocturnal enuresis Bladder calculus Calcification of prostate History of radiation therapy Urinary incontinence Lower urinary tract symptoms Hx of chest pain Coronary artery disease Acute non-ST elevation myocardial infarction (NSTEMI) Headache Chronic low back pain with sciatica Paresthesias in left hand CVA (cerebral vascular accident) Hypertension Hairy cell leukemia Parkinsons disease Surgical History S/P deep brain stimulator placement (09/16/14) S/P TURP History of tonsillectomy Social History marital status: number of children: 2 household members: spouse occupational status: previously employed and other Tobacco: How many years used: 5 alcohol intake: never substance use type: does not use caffeine: No Type(s) of exercise: walking frequency: other alcohol intake frequency: a few times a month Exam Initial Vital Signs Initial Vital Signs: Vital Signs Temperature 98.4 F 08/11/25 10:21 Pulse Rate 62 08/11/25 10:21 Respiratory Rate 16 08/11/25 10:21 Blood Pressure 117/79 08/11/25 10:21 Pulse Oximetry 97 08/11/25 10:21 Oxygen Delivery Method Room Air 08/11/25 10:21 Const Other: Well-appearing with a parkinsonian affect HENMT HENMT Other: Normocephalic atraumatic Neck Other: Supple Chest Other: Deep brain stimulator implant left anterior chest wall Resp Other: Normal respiratory effort speaking in full sentences lungs are clear Cardio Other: Regular rhythm and rate systolic murmur no gallop normal rate GI Other: Normal bowel sounds soft and nontender Skin Other: Warm and dry Neuro Other: Alert and oriented moving all 4 extremities parkinsonian tremor Course Orders Ordered: ED Orders 08/11/25 10:18 Complete Blood Count AUTO DIFF Stat Comprehensive Metabolic Panel Stat Lactate (Lactic Acid) Stat Lipase Stat Magnesium Stat NT-proBNP (BNP-Adult 18+) Stat PTT Partial Thromboplastin Jamey Stat Prothrombin Time INR Stat Troponin & CK Cardiac Panel Stat 08/11/25 10:23 XR chest 1V Stat EKG-12 Lead Stat Discontinued Medications Aspirin (Aspirin 81 Mg Chew Tab) 324 mg PO NOW ONE Stop: 08/11/25 10:24 Last Admin: 08/11/25 12:28 Dose: Not Given Documented By: MICHELLE Carbidopa/Levodopa (Carbidopa-Levodopa 25/100 Tablet) 2 each PO NOW ONE Stop: 08/11/25 12:28 Last Admin: 08/11/25 12:33 Dose: 2 each Documented By: MICHELLE Vital Signs Vital signs: Vital Signs - 8 hr 08/11/25 10:21 08/11/25 10:23 08/11/25 10:30 Temperature 98.4 F Pulse Rate 62 64 62 Respiratory Rate 16 28 H 24 Blood Pressure 117/79 Pulse Oximetry 97 96 Oxygen Delivery Method Room Air 08/11/25 10:31 08/11/25 10:31 08/11/25 11:00 Temperature Pulse Rate 63 59 L Respiratory Rate 25 H 21 Blood Pressure 146/70 H Pulse Oximetry 94 96 Oxygen Delivery Method 08/11/25 11:00 08/11/25 11:30 08/11/25 12:00 Temperature Pulse Rate 62 56 L Respiratory Rate 15 Blood Pressure 144/65 H Pulse Oximetry 93 95 Oxygen Delivery Method 08/11/25 12:30 08/11/25 13:00 08/11/25 13:06 Temperature Pulse Rate 61 65 63 Respiratory Rate 20 22 22 Blood Pressure Pulse Oximetry 96 96 95 Oxygen Delivery Method 08/11/25 13:06 08/11/25 13:30 08/11/25 13:30 Temperature Pulse Rate 61 Respiratory Rate 21 Blood Pressure 165/77 H 161/76 H Pulse Oximetry 95 Oxygen Delivery Method 08/11/25 13:52 08/11/25 14:00 08/11/25 14:00 Temperature Pulse Rate 63 60 Respiratory Rate 25 H 8 L Blood Pressure 169/79 H Pulse Oximetry 95 97 Oxygen Delivery Method Medical Decision Making Lab Data Lab results narrative: CBC shows mild anemia and minimal thrombocytopenia, troponin and proBNP are normal, no major electrolyte abnormalities or renal failure 08/11/25 10:18 08/11/25 10:18 Labs: Lab Results 08/11/25 Range/Units 10:18 WBC 4.2 L (4.5-11.0) X10^3/uL RBC 4.38 L (4.5-5.9) X10^6/uL Hgb 13.4 L (13.5-17.5) g/dL Hct 38.2 L (41-53) % MCV 87.3 (80-100) fL MCH 30.7 (26-34) PG MCHC 35.1 (30-36) % RDW 13.3 (11.6-14.8) % Plt Count 135 L (150-400) X10^3/uL Neut % (Auto) 71.1 (50-75) % Lymph % (Auto) 16.6 L (25-40) % Coal % (Auto) 7.9 (3-14) % Eos % (Auto) 3.9 (2-4) % Baso % (Auto) 0.5 (0-2) % Neut # (Auto) 3000 (5785-0469) /uL Lymph # (Auto) 700 L (8254-1547) /uL Coal # (Auto) 300 (0-900) /uL Eos # (Auto) 200 (0-450) /uL Baso # (Auto) 0 (0-100) /uL PT 12.4 (9.4-12.5) SECONDS INR 1.1 (0.9-1.3) APTT 26 (25.1-36.5) SECONDS Sodium 138 (137-145) mmol/L Potassium 4.0 (3.4-5.1) mmol/L Chloride 103 (98-107) mmol/L Carbon Dioxide 27 (22-32) mmol/L BUN 21 H (9-20) mg/dL Creatinine 1.07 (0.66-1.25) mg/dL Estimated GFR > 60 (>60) mL/min BUN/Creatinine Ratio 19.6 (6-22) Glucose 154 H (70-99) mg/dL Lactate 1.6 (0.7-2.1) mmol/L Calcium 9.0 (8.4-10.2) mg/dL Magnesium 2.1 (1.6-2.3) mg/dL Total Bilirubin 0.9 (0.2-1.3) mg/dL AST 23 (17-59) IU/L ALT 8 (<50) IU/L Alkaline Phosphatase 82 (38-126) U/L Total Creatine Kinase 33 L (55-170) U/L Troponin I < 0.012 (0.01-0.034) ng/mL NT-Pro-B Natriuret Pep 351 (<450) pg/mL Total Protein 6.4 (6.3-8.2) g/dL Albumin 3.7 (3.5-5.0) g/dL Globulin 2.7 (1.7-4.1) g/dL Albumin/Globulin Ratio 1.4 (1.0-2.8) Lipase 71 (23-300) U/L Imaging Data Chest x-ray: My Impression: Independent review of chest x-ray, no acute findings Radiologist's Impression: ?mild interstitial prominence? ECG Data Attestation: I personally reviewed and interpreted this ECG as follows: (Normal sinus rhythm at [address] segment changes normal interval) MDM Narrative Medical decision making narrative: 72-year-old male recently seen with syncope coming in today with an episode of lightheadedness accompanied by orthostatic hypotension. The hypotension has resolved. Workup does not suggest cardiac arrhythmia infection major electrolyte disturbance or hypovolemia. At this point he has blood pressure is actually somewhat elevated, I am reluctant to adjust his blood pressure and note that he recently had his amlodipine titrated down. I recommended primary care follow up and caution with ambulation. Recommended that he lie down when he is feeling lightheaded. Also recommended primary care follow up. Discharge Plan Departure Patient Disposition: Home Clinical Impression: Light-headedness, Parkinsonism with orthostatic hypotension Activity Restrictions/Additional Instructions: Emergency department workup today is reassuring. It sounds like you are having some orthostatic hypotension, low blood pressure when upright. This can occur with Parkinson's or dehydration, you appear to be well hydrated today. Your blood pressures now are actually a little high so I do not want to change your blood pressure medicines at this point. Continue your previous home care make sure that you are getting adequate fluids. If you are feeling lightheaded, do not stand or walk, and you may need to actually lie down so that your head and harder at the same level. Make an appointment to follow up soon with her primary care provider for a recheck. If you are having persistent lightheadedness chest pain fevers or other acute symptoms recheck in the emergency department Prescriptions: No Action metoprolol succinate 50 mg tablet extended release 24 hr 50 mg PO BID Qty: 90 1RF Patient Comments: 0900/2300 (DME) Disabled Parking Permit See Rx Instructions .ROUTE .MEDSUPPLY Qty: 1 0RF Rx Instructions: I find this patient to be medically disabled and qualified for Disabled Parking as indicated and signed on the accompanying Disabled Parking Application for Individuals. losartan 50 mg tablet 50 mg PO BID Qty: 180 3RF Patient Comments: 09/0 isosorbide mononitrate 30 mg tablet extended release 24 hr 30 ea PO DAILY Patient Comments: TAKE ONE TABLET BY MOUTH ONE TIME DAILY @0900 rivastigmine 4.6 mg/24 hour patch 24 hour 4.6 mg transdermal DAILY Patient Comments: Q night alternating arm atorvastatin 40 mg tablet 40 mg PO DAILY Patient Comments: takes @ 1830 zonisamide 25 mg capsule 25 mg PO DAILY Patient Comments: 0900 acetaminophen [Tylenol] 325 mg Tablet 325 mg PO Q6H PRN (Reason: Pain (Scale Score 1-3)) carbidopa-levodopa 50-200 mg Tablet Extended Release 1 tab PO QID Patient Comments: Pt takes 0900/1200/1830/2330 or 0000 Rx Instructions: divide evenly over waking hours 1.5 TABLETS AT BEDTIME tamsulosin [Flomax] 0.4 mg capsule 0.4 mg PO BEDTIME amlodipine 2.5 mg tablet 2.5 mg PO DAILY Qty: 30 2RF Patient Comments: takes @ 2300 oxycodone-acetaminophen 5-325 mg tablet 1 tab PO Q6H PRN (Reason: pain) Qty: 10 0RF Referrals: Anson Benitez MD [Primary Care Provider, Family Practice] Stand Alone Forms: Patient Portal/API
--- NOTE | 2025-08-11 13:37 | EKG_ITS ---
[place] [id number] [place] [id number] Test Date: 2025-08-11 Pat Name: Olu Rivas Department: 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
--- NOTE | 2025-08-11 13:40 | PC.NURSE ---
Deep brain stimulator temporarily turned off to capture ECG. Patient tolerated well. Device turned back on immediately.
== END 2025-08-11 14:38 | disposition home or self-care (01) ==
PROVIDERS: Emergency Provider Emergency Medicine; Family Provider Family Medicine; PCP Family Medicine
DX: R42 Dizziness and giddiness (principal); I95.1 Orthostatic hypotension; G20.A1 Parkinson's disease without dyskinesia, without mention of fluctuations; Z96.82 Presence of neurostimulator
CPT/HCPCS: 36415; 71045; 80053; 82550; 83605; 83690; 83735; 83880; 84484; 85025; 85610; 85730; 93005; 93010; 99284

== ENCOUNTER 2025-08-13 11:35 | Emergency (ER) | payer MEDICARE, OTHER, SELFPAY ==
[2025-08-02 20:56] VITALS: BMI 24.0
[2025-08-13] VITALS (28 sets, daily range): BP systolic 111–184; BP diastolic 57–88; PULSE 48–69; RESP 13–24; TEMP 36.3; O2SAT 94–97; BMI 22.9
--- NOTE | 2025-08-13 11:39 | DI.RAD.S_ITS ---
PROCEDURE: XR CHEST 1V INDICATIONS: syncope TECHNIQUE: One view of the chest was acquired. COMPARISON: [facility], CR, XR CHEST 1V, 08/11/2025, 10:33. FINDINGS: Surgical changes and devices: Deep brain stimulator Lungs and pleura: Lungs are clear. No pleural effusions or pneumothorax. Mediastinum: Mediastinal contours appear normal. Heart size is normal. Bones and chest wall: No suspicious bony lesions. Overlying soft tissues appear unremarkable. IMPRESSION: No acute cardiopulmonary abnormality is seen. Dictated by: Mario Bruce M.D. on 08/13/2025 at 12:30 Approved by: Mario Bruce M.D. on 08/13/2025 at 12:31
--- NOTE | 2025-08-13 11:50 | ED.SYNCOPE ---
HPI - Syncope General Chief Complaint: Syncope Stated Complaint: Unresponsive, Now Alert Time Seen by Provider: 08/13/25 11:39 History of Present Illness HPI narrative: Patient is a 72-year-old male who presents for his 3rd syncopal episode this month. He was admitted August 02 through the for something similar, and again seen in the ED on August 11. Since then his amlodipine has been decreased from 2.5 b.i.d. to 2.5 at night time. reports that they were sitting at the table when he passed out. EMS was called reported positive orthostatics started IV fluids and blood pressure quickly improved. Patient has Parkinson's with brain stimulator. He denies any chest pain shortness of breath or weakness. There has been no fever. However he continues to have the same symptoms. Patient reports that he took 2 nitroglycerin last night around 3:00 a.m. because he was having some chest pain it did completely go away. Patient had a chest CT in June after he fell. He does have frequent visits to the ED. he is A&O x3 and no complaints or evidence of trauma today Related Data Home Medications ?Medication ?Instructions ?Recorded ?Confirmed acetaminophen 325 mg tablet 325 mg PO Q6H PRN Pain (Scale 06/26/18 08/11/25 (Tylenol) Score 1-3) isosorbide mononitrate 30 mg 30 ea PO DAILY 02/15/23 08/11/25 tablet,extended release 24 hr carbidopa ER 50 mg-levodopa 200 mg 1 tab PO QID 08/14/24 08/11/25 tablet,extended release atorvastatin 40 mg tablet 40 mg PO DAILY 02/11/25 08/11/25 rivastigmine 4.6 mg/24 hour 4.6 mg transdermal DAILY 02/11/25 08/11/25 transdermal patch zonisamide 25 mg capsule 25 mg PO DAILY 02/11/25 08/11/25 tamsulosin 0.4 mg capsule (Flomax) 0.4 mg PO BEDTIME 08/02/25 08/11/25 Previous Rx's ?Medication ?Instructions ?Recorded losartan 50 mg tablet 50 mg PO BID #180 tabs 02/02/21 metoprolol succinate 50 mg 50 mg PO BID #90 tabs 02/16/22 tablet,extended release 24 hr Disabled Parking Permit #1 ea 03/31/24 oxycodone-acetaminophen 5 mg-325 1 tab PO Q6H PRN pain #10 tabs 07/09/25 mg tablet amlodipine 2.5 mg tablet 2.5 mg PO DAILY #30 tabs 08/03/25 Allergies Allergy/AdvReac Type Severity Reaction Status Date / Time adhesive tape Allergy Intermediate Blister Verified 08/02/25 13:08 cefuroxime Allergy Mild rash/ Verified 08/02/25 13:08 itching codeine (CODEINE) Allergy Mild NAUSEA Verified 08/02/25 13:08 clindamycin AdvReac N/V Verified 08/02/25 13:08 Patient History Medical History History of urinary calculi History of prostate cancer BPH w urinary obs/LUTS Nocturnal enuresis Bladder calculus Calcification of prostate History of radiation therapy Urinary incontinence Lower urinary tract symptoms Hx of chest pain Coronary artery disease Acute non-ST elevation myocardial infarction (NSTEMI) Headache Chronic low back pain with sciatica Paresthesias in left hand CVA (cerebral vascular accident) Hypertension Hairy cell leukemia Parkinsons disease Surgical History S/P deep brain stimulator placement (09/16/14) S/P TURP History of tonsillectomy Social History marital status: number of children: 2 household members: spouse occupational status: previously employed and other Smoking Status: Former smoker Tobacco: How many years used: 5 alcohol intake: never substance use type: does not use caffeine: No Type(s) of exercise: walking frequency: other alcohol intake frequency: a few times a month Exam Initial Vital Signs Initial Vital Signs: Vital Signs Temperature 97.3 F L 08/13/25 11:35 Pulse Rate 56 L 08/13/25 11:35 Respiratory Rate 16 08/13/25 11:35 Blood Pressure 120/57 L 08/13/25 11:35 Pulse Oximetry 94 08/13/25 11:35 Oxygen Delivery Method Room Air 08/13/25 11:35 GENERAL: [Well-appearing, well-nourished] and in [no acute] distress. HEENT: Head atraumatic,EOMI, pupils reactive, face symmetric, [moist] mucous membranes CARDIOVASCULAR: Regular rate and rhythm without murmurs, rubs or gallops. RESPIRATORY: Breath sounds equal bilaterally, no wheezes rales or rhonchi. ABDOMEN: Soft, nontender. Normoactive bowel sounds all 4 quadrants. No guarding or rebound. EXTREMITIES: Normal range of motion, no clubbing or edema. Neurovascularly intact NEUROLOGICAL: Alert and oriented x4.Normal gait and speech. Cranial nerves II through XII grossly intact. Mild breakthrough tremor SKIN: Warm, dry, no laceration, no petechiae, no rashes or lesions. Course Orders Ordered: Discontinued Medications Carbidopa/Levodopa (Carbidopa-Levodopa Er 50/200 Tablet) 1 each PO NOW ONE Stop: 08/13/25 15:25 Last Admin: 08/13/25 15:29 Dose: 1 each Documented By: OLIMPIA Vital Signs Vital signs: Vital Signs - 8 hr 08/13/25 11:35 08/13/25 11:45 08/13/25 11:45 Temperature 97.3 F L Pulse Rate 56 L 52 L Respiratory Rate 16 19 Blood Pressure 120/57 L 122/64 Pulse Oximetry 94 95 Oxygen Delivery Method Room Air 08/13/25 11:50 08/13/25 11:50 08/13/25 11:56 Temperature Pulse Rate 52 L 55 L Respiratory Rate 19 21 Blood Pressure 130/68 Pulse Oximetry 96 96 Oxygen Delivery Method 08/13/25 11:56 08/13/25 12:00 08/13/25 12:01 Temperature Pulse Rate 52 L Respiratory Rate 19 Blood Pressure 111/59 L 137/65 Pulse Oximetry 95 Oxygen Delivery Method 08/13/25 12:01 08/13/25 12:05 08/13/25 12:05 Temperature Pulse Rate 51 L 51 L Respiratory Rate 13 24 Blood Pressure 143/65 H Pulse Oximetry 95 96 Oxygen Delivery Method 08/13/25 12:10 08/13/25 12:10 08/13/25 12:15 Temperature Pulse Rate 52 L 49 L Respiratory Rate 19 14 Blood Pressure 130/65 Pulse Oximetry 95 95 Oxygen Delivery Method 08/13/25 12:15 08/13/25 12:20 08/13/25 12:20 Temperature Pulse Rate 52 L Respiratory Rate 18 Blood Pressure 132/64 150/68 H Pulse Oximetry 96 Oxygen Delivery Method 08/13/25 12:26 08/13/25 12:26 08/13/25 12:30 Temperature Pulse Rate 48 L 52 L Respiratory Rate 17 17 Blood Pressure 137/64 Pulse Oximetry 95 95 Oxygen Delivery Method 08/13/25 12:30 08/13/25 12:45 08/13/25 12:45 Temperature Pulse Rate 53 L Respiratory Rate 17 Blood Pressure 138/64 153/73 H Pulse Oximetry 96 Oxygen Delivery Method 08/13/25 13:00 08/13/25 13:00 08/13/25 13:15 Temperature Pulse Rate 55 L 55 L Respiratory Rate 21 14 Blood Pressure 149/77 H Pulse Oximetry 95 96 Oxygen Delivery Method 08/13/25 13:15 08/13/25 13:30 08/13/25 13:31 Temperature Pulse Rate 58 L 62 Respiratory Rate 21 20 Blood Pressure 141/70 H Pulse Oximetry 95 96 Oxygen Delivery Method 08/13/25 13:31 08/13/25 13:45 08/13/25 13:45 Temperature Pulse Rate 60 Respiratory Rate 23 Blood Pressure 158/76 H 168/82 H Pulse Oximetry 96 Oxygen Delivery Method 08/13/25 14:00 08/13/25 14:33 Temperature Pulse Rate 64 65 Respiratory Rate 19 Blood Pressure Pulse Oximetry 94 97 Oxygen Delivery Method MDM - Syncope Lab Data 08/13/25 11:30 08/13/25 11:30 Labs: Lab Results 08/13/25 Range/Units 11:30 WBC 5.8 (4.5-11.0) X10^3/uL RBC 4.43 L (4.5-5.9) X10^6/uL Hgb 13.7 (13.5-17.5) g/dL Hct 38.4 L (41-53) % MCV 86.7 (80-100) fL MCH 30.8 (26-34) PG MCHC 35.5 (30-36) % RDW 13.0 (11.6-14.8) % Plt Count 162 (150-400) X10^3/uL Neut % (Auto) 66.7 (50-75) % Lymph % (Auto) 17.8 L (25-40) % Hooker % (Auto) 10.3 (3-14) % Eos % (Auto) 4.4 H (2-4) % Baso % (Auto) 0.8 (0-2) % Neut # (Auto) 3900 (9143-9174) /uL Lymph # (Auto) 1000 L (0036-2772) /uL Hooker # (Auto) 600 (0-900) /uL Eos # (Auto) 300 (0-450) /uL Baso # (Auto) 0 (0-100) /uL Sodium 136 L (137-145) mmol/L Potassium 4.2 (3.4-5.1) mmol/L Chloride 104 (98-107) mmol/L Carbon Dioxide 23 (22-32) mmol/L BUN 20 (9-20) mg/dL Creatinine 1.10 (0.66-1.25) mg/dL Estimated GFR > 60 (>60) mL/min BUN/Creatinine Ratio 18.2 (6-22) Glucose 106 H (70-99) mg/dL Calcium 9.0 (8.4-10.2) mg/dL Total Bilirubin 1.0 (0.2-1.3) mg/dL AST 28 (17-59) IU/L ALT 9 (<50) IU/L Alkaline Phosphatase 74 (38-126) U/L Total Creatine Kinase 36 L (55-170) U/L Troponin I < 0.012 (0.01-0.034) ng/mL NT-Pro-B Natriuret Pep 495 H (<450) pg/mL Total Protein 6.5 (6.3-8.2) g/dL Albumin 3.9 (3.5-5.0) g/dL Globulin 2.6 (1.7-4.1) g/dL Albumin/Globulin Ratio 1.5 (1.0-2.8) Lipase 65 (23-300) U/L ECG Data Attestation: I personally reviewed and interpreted this ECG as follows: Prior ECG tracings: available for review Interpretation: Sinus rhythm rate 52 RI interval 186 QRS 92 QTC 435 T-wave inversion noted in aVL similar to multiple previous EKGs no ST changes MDM Narrative Medical decision making narrative: MDM CC: Syncope Complicating co-morbidities: Parkinson's disease hypertension hyperlipidemia coronary artery disease prostate cancer hairy cell leukemia Data collected from: patient multiple admission Medical records reviewed: Last admission 08/02/2025 was overnight and discharged the next day back in the ED on 08/11/2025 for the same Differential considered: Cardiac syncope, medication related pulmonary embolisms hypoglycemia Exam documented above, pertinent findings include: Alert pleasant elderly male moving all extremities no acute distress heart rate regular Lab Test results independently reviewed as above. Pertinent findings: CBC no leukocytosis no anemia no thrombocytopenia Coags normal CMP no significant abnormality no evidence of dehydration glucose is 106 Troponin negative BNP 495 Independently reviewed EKG as above Sinus rhythm no ischemia Imaging studies independently reviewed: Chest x-ray no acute cardiopulmonary process Consultations: none Treatments: IV fluids Re-evaluations: Patient awake alert oriented overall feeling better ready unable to go. Discussion: Alert very pleasant 80-year-old male presenting today with a recurrent syncopal episode. He is not having any sort of chest pain now but he did last night. This does happen to him. He has had multiple previous admissions your was low for EMS which did resolve and now he is actually hypertensive. On his last admission amlodipine was cut from 5 mg to 2.5. Now blood pressure was low but is now having a systolic go 184. It is possible he is reacting to the nitroglycerin or long-acting isosorbide. He is on quite a bit of blood pressure meds but low pressure does come up to be quite high. Low suspicion for any kind of pulmonary embolism he is not short of breath not having chest pain not hypoxic not tachycardic, and this is his 3rd or 4th event. Discussion with we will go ahead and cut losartan 25 mg twice a day they will follow up appointment with next week. Patient is a had multiple head CTs he is not on anticoagulation. He did not fall or hit his head there is no evidence of trauma no need for head CT at this time. Shared decision making with and patient in regards to admission versus going home. They have close outpatient follow-up an appointment already scheduled from prior admission. I suspect that this is due to too many medications. May also be due to his nitroglycerin but sure. He is able to stand and walk in the emergency department Discharge Plan Departure Patient Disposition: Home Clinical Impression: Syncope Instructions: DI for Syncope in Adults (Fainting) Activity Restrictions/Additional Instructions: *You have been diagnosed with syncope *What to do: Is unclear what keeps making him pass out it maybe medication related. Check blood pressure twice a day morning and night record and bring these recordings to appointment *Continue to take medications as directed Decreased losartan from 50 mg twice a day to 25 mg twice a day *Follow up with your primary care provider in 2-3 days or call [phone] *Return to ER if you should have increasing pain weakness passingout or any new, worsening or concerning symptoms Prescriptions: No Action metoprolol succinate 50 mg tablet extended release 24 hr 50 mg PO BID Qty: 90 1RF Patient Comments: 0900/2300 (DME) Disabled Parking Permit See Rx Instructions .ROUTE .MEDSUPPLY Qty: 1 0RF Rx Instructions: I find this patient to be medically disabled and qualified for Disabled Parking as indicated and signed on the accompanying Disabled Parking Application for Individuals. losartan 50 mg tablet 50 mg PO BID Qty: 180 3RF Patient Comments: 0900/0 isosorbide mononitrate 30 mg tablet extended release 24 hr 30 ea PO DAILY Patient Comments: TAKE ONE TABLET BY MOUTH ONE TIME DAILY @0900 rivastigmine 4.6 mg/24 hour patch 24 hour 4.6 mg transdermal DAILY Patient Comments: Q night alternating arm atorvastatin 40 mg tablet 40 mg PO DAILY Patient Comments: takes @ 1830 zonisamide 25 mg capsule 25 mg PO DAILY Patient Comments: 0900 acetaminophen [Tylenol] 325 mg Tablet 325 mg PO Q6H PRN (Reason: Pain (Scale Score 1-3)) carbidopa-levodopa 50-200 mg Tablet Extended Release 1 tab PO QID Patient Comments: Pt takes 0900/1200/1830/2330 or 0000 Rx Instructions: divide evenly over waking hours 1.5 TABLETS AT BEDTIME tamsulosin [Flomax] 0.4 mg capsule 0.4 mg PO BEDTIME amlodipine 2.5 mg tablet 2.5 mg PO DAILY Qty: 30 2RF Patient Comments: takes @ 2300 oxycodone-acetaminophen 5-325 mg tablet 1 tab PO Q6H PRN (Reason: pain) Qty: 10 0RF Referrals: Anson Benitez MD [Primary Care Provider, Family Practice] Stand Alone Forms: Patient Portal/API
--- NOTE | 2025-08-13 12:08 | EKG_ITS ---
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
[2025-08-13 12:21] LABS: Add Manual Diff / Slide Review NO; Hematocrit 38.4 % (41-53); Hemoglobin 13.7 g/dL (13.5-17.5); Lymphocytes Absolute Auto 1000 /uL (1100-4500); Mean Corpuscular HGB Conc 35.5 % (30-36); Mean Corpuscular Hemoglobin 30.8 PG (26-34); Mean Corpuscular Volume 86.7 fL (80-100); Platelet Count 162 X10^3/uL (150-400)
[2025-08-13 12:39] LABS: Alanine Aminotransferase 9 IU/L (<50); Albumin 3.9 g/dL (3.5-5.0); Albumin Globulin Ratio 1.5 (1.0-2.8); Alkaline Phosphatase 74 U/L (38-126); Blood Urea Nitrogen 20 mg/dL (9-20); Calcium 9.0 mg/dL (8.4-10.2); Carbon Dioxide 23 mmol/L (22-32); Chloride 104 mmol/L (98-107); Creatine Kinase 36 U/L (55-170); Estimated Glomerular Filt Rate > 60 mL/min (>60); Globulin 2.6 g/dL (1.7-4.1); Glucose 106 mg/dL (70-99); Lipase 65 U/L (23-300); Potassium 4.2 mmol/L (3.4-5.1); Sodium 136 mmol/L (137-145); Total Protein 6.5 g/dL (6.3-8.2)
[2025-08-13 12:40] LABS: HEMOLYSIS 56 (0-50)
--- NOTE | 2025-08-13 12:50 | PC.NURSE ---
patient states that he took 2 nitro tabs last night and is about to run out of his nitroglycerine meds and would like more. The spouse stated that she takes care of his medications by making sure his meds are organized in his pill organizer. She gives him amlodpine 2.5 mg at night and metoprolol 50 mg in the morning, among his other meds. She states that she gave him his morning meds this am around 0800. The home health nurse came to the house shortly after wards and took his vital signs. The spouse states she is not in the habit of taking the pts vitals before chief medical officer.
[2025-08-13 12:51] LABS: Troponin I < 0.012 ng/mL (0.01-0.034)
[2025-08-13 13:38] LABS: NT-proBNP (BNP-Adult 18+) 495 pg/mL (<450)
[2025-08-13] MEDS: CARBIDOPA-LEVODOPA ER 50/200 TABLET 1 EACH PO (15:29)
== END 2025-08-13 16:30 | disposition home or self-care (01) ==
PROVIDERS: Emergency Provider Emergency Medicine; Family Provider Family Medicine; PCP Family Medicine
DX: R55 Syncope and collapse (principal)
CPT/HCPCS: 36415; 71045; 80053; 82550; 83690; 83880; 84484; 85025; 93005; 93010; 99284

== ENCOUNTER 2025-08-27 21:14 | Emergency (ER) | payer MEDICARE, OTHER, SELFPAY ==
[2025-08-02 20:56] VITALS: BMI 24.0
[2025-08-27] VITALS (10 sets, daily range): BP systolic 206–226; BP diastolic 98–103; PULSE 55–67; RESP 21–35; TEMP 36.6; O2SAT 94–97; BMI 24.3
--- NOTE | 2025-08-27 21:25 | DI.CT.S_ITS ---
PROCEDURE: CT HEAD/BRAIN WO CON INDICATIONS: facial tingling, resolved, hx parkinson, deep brain stimulator TECHNIQUE: Noncontrast 4.5 mm thick angled axial sections acquired from the foramen magnum to the vertex, with coronal and sagittal reformats. For radiation dose reduction, the following was used: automated exposure control, adjustment of mA and/or kV according to patient size. COMPARISON: [facility], CT, CT HEAD/BRAIN WO CON, 08/02/2025, 18:46. FINDINGS: Image quality: Diagnostic. CSF spaces: Basal cisterns are patent. No extra-axial fluid collections. Ventricles are normal in size and shape. Brain: Deep brain stimulator leads. No midline shift. No intracranial mass effect or hemorrhage. No area of hypodensity in a large vascular distribution to suggest acute infarction. Periventricular hypodensity consistent with chronic microvascular ischemic change. Age-related parenchymal loss. Skull and face: Calvarium and visualized facial bones are intact, without suspicious lesions. Sinuses: Visualized sinuses and mastoids are clear. IMPRESSION: No acute intracranial pathology. Deep brain stimulator leads are unchanged. Dictated by: Gareth Alexander M.D. on 08/27/2025 at 22:53 Approved by: Gareth Alexander M.D. on 08/27/2025 at 22:56
--- NOTE | 2025-08-27 21:27 | ED.GENADULT ---
HPI - General Adult General Chief complaint: Neuro Symptoms/Deficit Stated complaint: facial numbness Time Seen by Provider: 08/27/25 21:16 Source: patient, EMS, RN notes reviewed and old records reviewed Mode of arrival: EMS Limitations: no limitations History of Present Illness HPI narrative: 80-year-old male history of Parkinson's disease with deep brain stimulator, hypertension, dyslipidemia, coronary artery disease, prostate cancer, hairy cell leukemia who presents with a kind of tingling in his face. He states was of the cheek kind of both sides. He states he did not tell his family initially but it was persistent. He denies any twitching or movement of the face. He denies headaches. Denies any fevers. Denies any vision changes, denies any difficulty with speech, denies any new chest pain or shortness of breath. He denies any nausea or vomiting. No new urinary incontinence or other new GI or urinary symptoms. He denies any new twitching or movement of his extremities. He denies any weakness in his extremities or changes to movement of his extremities. Patient notes they has been adjusting his medications over the past 2 or 3 weeks for his Parkinson's. He is unsure if it has been helpful so far but thinks it may has been. Patient lives with his . Related Data Home Medications ?Medication ?Instructions ?Recorded ?Confirmed acetaminophen 325 mg tablet 325 mg PO Q6H PRN Pain (Scale 06/26/18 08/17/25 (Tylenol) Score 1-3) carbidopa ER 50 mg-levodopa 200 mg 1 tab PO QID 08/14/24 08/17/25 tablet,extended release atorvastatin 40 mg tablet 40 mg PO DAILY 02/11/25 08/17/25 rivastigmine 4.6 mg/24 hour 4.6 mg transdermal DAILY 02/11/25 08/17/25 transdermal patch zonisamide 25 mg capsule 25 mg PO DAILY 02/11/25 08/17/25 tamsulosin 0.4 mg capsule (Flomax) 0.4 mg PO BEDTIME 08/02/25 08/17/25 aspirin 81 mg tablet,delayed 81 mg PO DAILY 08/17/25 08/17/25 release (Adult Aspirin Regimen) losartan 50 mg tablet 25 mg PO DAILY 08/17/25 08/17/25 metoprolol succinate 50 mg 25 mg PO DAILY 08/17/25 08/17/25 tablet,extended release 24 hr Previous Rx's ?Medication ?Instructions ?Recorded Disabled Parking Permit #1 ea 03/31/24 oxycodone-acetaminophen 5 mg-325 1 tab PO Q6H PRN pain #10 tabs 07/09/25 mg tablet Allergies Allergy/AdvReac Type Severity Reaction Status Date / Time adhesive tape Allergy Intermediate Blister Verified 08/17/25 13:48 cefuroxime Allergy Mild rash/ Verified 08/17/25 13:48 itching codeine (CODEINE) Allergy Mild NAUSEA Verified 08/17/25 13:48 clindamycin AdvReac N/V Verified 08/17/25 13:48 Review of Systems Review of Systems ROS Unobtainable: All systems reviewed & are unremarkable except as noted in HPI and below Patient History Medical History History of urinary calculi History of prostate cancer BPH w urinary obs/LUTS Nocturnal enuresis Bladder calculus Calcification of prostate History of radiation therapy Urinary incontinence Lower urinary tract symptoms Hx of chest pain Coronary artery disease Acute non-ST elevation myocardial infarction (NSTEMI) Headache Chronic low back pain with sciatica Paresthesias in left hand CVA (cerebral vascular accident) Hypertension Hairy cell leukemia Parkinsons disease Surgical History S/P deep brain stimulator placement (09/16/14) S/P TURP History of tonsillectomy Social History marital status: number of children: 2 household members: spouse occupational status: previously employed and other Tobacco: How many years used: 5 alcohol intake: never substance use type: does not use caffeine: No Type(s) of exercise: walking frequency: other alcohol intake frequency: a few times a month Exam Narrative Exam Narrative: GEN: well nourished, elderly appearing male, alert and oriented x 3, patient appears to be in my distress. HEENT: Atraumatic, pupils are equal round reactive to light, extraocular movements are intact, nares are clear, TMs are clear with no fluid, there is no conjunctival pallor. Throat is clear without any exudates, erythema, tonsillar enlargement or uvular deviation, no facial droop. HEART: Regular rate and rhythm without murmur, clicks, rubs. Pulses are equal in upper and lower extremities LUNGS:Lungs clear to auscultation, no wheezes, rales, crackles, chest moves symmetrically, no tachypnea accessory muscle use. ABD:bowel sounds normal, soft, non-tender, no guarding, rebound, rigidity, no masses noted, no hepatosplenomegaly MSCL: Non-tender, no muscle atrophy, muscles strength 5/5 upper and lower extremities, full range of motion, no drift of bilateral upper lower extremities. Patient does have pill rolling particularly in the right upper extremity, no obvious fasciculations of the face or tremors of the face. NEURO:CN 2-12 intact, sensation normal. SKIN: No rash, erythema or other skin changes Initial Vital Signs Initial Vital Signs: Vital Signs Pulse Rate 65 08/27/25 21:18 Respiratory Rate 21 08/27/25 21:18 Pulse Oximetry 95 08/27/25 21:18 Course Orders Ordered: ED Orders 08/27/25 21:25 CT head/brain wo con Stat 08/27/25 21:26 EKG-12 Lead Stat 08/27/25 21:51 Chest [XR chest 1V] Stat 08/27/25 21:55 Complete Blood Count AUTO DIFF Stat Comprehensive Metabolic Panel Stat PTT Partial Thromboplastin Jamey Stat Prothrombin Time INR Stat Troponin & CK Cardiac Panel Stat 08/27/25 22:00 Urinalysis and Microscopic Stat Vital Signs Vital signs: Vital Signs - 8 hr 08/27/25 21:18 08/27/25 21:30 08/27/25 21:31 Temperature Pulse Rate 65 65 Respiratory Rate 21 21 Blood Pressure 220/102 H Pulse Oximetry 95 95 Oxygen Delivery Method 08/27/25 21:31 08/27/25 21:45 08/27/25 22:00 Temperature 97.9 F Pulse Rate 65 62 67 Respiratory Rate 24 21 Blood Pressure 220/102 H Pulse Oximetry 94 97 Oxygen Delivery Method Room Air 08/27/25 22:30 08/27/25 23:00 08/27/25 23:03 Temperature Pulse Rate 57 L 55 L 58 L Respiratory Rate 21 22 35 H Blood Pressure Pulse Oximetry 95 Oxygen Delivery Method 08/27/25 23:03 08/27/25 23:04 08/27/25 23:04 Temperature Pulse Rate 59 L Respiratory Rate 32 H Blood Pressure 226/103 H 206/98 H Pulse Oximetry 96 Oxygen Delivery Method Room Air Medical Decision Making Lab Data 08/27/25 21:55 08/27/25 21:55 Labs: Lab Results 08/27/25 08/27/25 Range/Units 21:55 22:00 WBC 4.4 L (4.5-11.0) X10^3/uL RBC 4.48 L (4.5-5.9) X10^6/uL Hgb 13.7 (13.5-17.5) g/dL Hct 39.3 L (41-53) % MCV 87.9 (80-100) fL MCH 30.7 (26-34) PG MCHC 34.9 (30-36) % RDW 13.1 (11.6-14.8) % Plt Count 129 L (150-400) X10^3/uL Neut % (Auto) 73.2 (50-75) % Lymph % (Auto) 12.6 L (25-40) % [place] % (Auto) 10.4 (3-14) % Eos % (Auto) 3.4 (2-4) % Baso % (Auto) 0.4 (0-2) % Neut # (Auto) 3200 (3660-7772) /uL Lymph # (Auto) 600 L (3662-4069) /uL [place] # (Auto) 500 (0-900) /uL Eos # (Auto) 100 (0-450) /uL Baso # (Auto) 0 (0-100) /uL PT 11.4 (9.4-12.5) SECONDS INR 1.0 (0.9-1.3) APTT 27 (25.1-36.5) SECONDS Sodium 138 (137-145) mmol/L Potassium 4.0 (3.4-5.1) mmol/L Chloride 107 (98-107) mmol/L Carbon Dioxide 26 (22-32) mmol/L BUN 25 H (9-20) mg/dL Creatinine 0.96 (0.66-1.25) mg/dL Estimated GFR > 60 (>60) mL/min BUN/Creatinine Ratio 26.0 H (6-22) Glucose 110 H (70-99) mg/dL Calcium 9.0 (8.4-10.2) mg/dL Total Bilirubin 0.6 (0.2-1.3) mg/dL AST 20 (17-59) IU/L ALT 9 (<50) IU/L Alkaline Phosphatase 81 (38-126) U/L Total Creatine Kinase 30 L (55-170) U/L Troponin I < 0.012 (0.01-0.034) ng/mL Total Protein 6.8 (6.3-8.2) g/dL Albumin 4.0 (3.5-5.0) g/dL Globulin 2.8 (1.7-4.1) g/dL Albumin/Globulin Ratio 1.4 (1.0-2.8) Urine Color Yellow Urine Appearance Clear Urine pH 6.5 (4.5-8.0) Ur Specific [place] 1.020 (1.000-1.035) Urine Protein Negative (Negative) Urine Glucose (UA) Negative (Negative) g/dL Urine Ketones Negative (NEGATIVE) Urine Occult Blood Negative (Negative) Urine Nitrate Negative (Negative) Urine Bilirubin Negative (NEGATIVE) Urine Urobilinogen 1.0 (0.2) E.U./dL Ur Leukocyte Esterase Negative (NEGATIVE) Urine RBC 0-1/hpf (0-5/HPF) Urine WBC 1-5/hpf (0-5/HPF) Ur Squamous Epith Cells 0-1 /hpf (0-5/HPF) Amorphous Sediment 2+ Urine Bacteria Few (2-10) H (None) Urine Yeast 0-1/hpf (None) Ur Culture Indicated? Cult not indicated Vol Urine Centrifuged 10ml (spun) ECG Data Attestation: I personally reviewed and interpreted this ECG as follows: Interpretation: Sinus rhythm rate of 61 [place] 176 QRS of 102 QTC of 430, patient has some left ventricular hypertrophy. Appears more pronounced today's EKG but otherwise very similar to patient's prior EKGs. Patient's EKG from 08/11/2025 appears very similar. [facility] Narrative Medical decision making narrative: EKG shows sinus rhythm with LVH rate of 61. Labs show white count of 4.4 hemoglobin of 13.7 platelets are 129 patient has been intermittently low with his white count and platelets in the past. This is fairly close to his baseline. PTT and INR negative, BUN 25 but electrolytes are otherwise appropriate creatinine 0.96 glucose is 110 calcium is 9 LFTs are otherwise normal, troponins less than 0.012. Urinalysis shows 1 red cell 1-5 white cells 1 squamous 2+ sediment few bacteria Head CT no acute intracranial pathology, deep brain stimulator leads are unchanged. Chest x-ray no acute cardiopulmonary abnormality. 72-year-old male with tingling both sides of his face which has not improved. He has no other acute neurologic changes. Does have a history of Parkinson's disease with deep brain stimulator. His neurologic exam tonight seems very consistent with a his priors. Patient is felt appropriate for discharge home this evening with no new changes. Discharge Plan Departure Patient Disposition: Home Clinical Impression: Facial paresthesia Activity Restrictions/Additional Instructions: Follow up with your physician, call to clarify your evening dose of your carbidopa levodopa if you are supposed to take 1 tablet in the am, noon and afternoon and 1.5 tablets in the evening. If you have any other new or concerning changes please return to the emergency department. Prescriptions: No Action (DME) Disabled Parking Permit See Rx Instructions .ROUTE .MEDSUPPLY Qty: 1 0RF Rx Instructions: I find this patient to be medically disabled and qualified for Disabled Parking as indicated and signed on the accompanying Disabled Parking Application for Individuals. aspirin [Adult Aspirin Regimen] 81 mg tablet,delayed release (DR/EC) 81 mg PO DAILY losartan 50 mg tablet 25 mg PO DAILY metoprolol succinate 50 mg tablet extended release 24 hr 25 mg PO DAILY rivastigmine 4.6 mg/24 hour patch 24 hour 4.6 mg transdermal DAILY Patient Comments: Q night alternating arm atorvastatin 40 mg tablet 40 mg PO DAILY Patient Comments: takes @ 1830 zonisamide 25 mg capsule 25 mg PO DAILY Patient Comments: 0900 acetaminophen [Tylenol] 325 mg Tablet 325 mg PO Q6H PRN (Reason: Pain (Scale Score 1-3)) carbidopa-levodopa 50-200 mg Tablet Extended Release 1 tab PO QID Patient Comments: Pt takes 0900/1200/1830/2330 or 0000 Rx Instructions: divide evenly over waking hours 1.5 TABLETS AT BEDTIME tamsulosin [Flomax] 0.4 mg capsule 0.4 mg PO BEDTIME oxycodone-acetaminophen 5-325 mg tablet 1 tab PO Q6H PRN (Reason: pain) Qty: 10 0RF Referrals: Anson Benitez MD [Primary Care Provider, Family Practice] Stand Alone Forms: Patient Portal/API
--- NOTE | 2025-08-27 21:47 | EKG_ITS ---
[address] [address] Test Date: 2025-08-27 Pat Name: Olu Rivas Department: Room: Gender: Male Radio Tester: COOKIE : 1945 Requested By: Order Number: [id number] Reading MD: Emory Engel Measurements Intervals [place] Rate: 61 P: 27 [place]: 176 QRS: 14 QRSD: 102 T: 107 QT: 428 QTc: 430 Interpretive Statements Normal sinus rhythm Left ventricular hypertrophy with repolarization abnormality ( Sokolow-Gonzalez ) Electronically Signed On 09-01-2025 7:56:11 PDT by Emory Engel
--- NOTE | 2025-08-27 21:51 | DI.RAD.S_ITS ---
PROCEDURE: XR CHEST 1V INDICATIONS: facial tingling TECHNIQUE: One view of the chest was acquired. COMPARISON: [facility], , XR CHEST 1V, 08/13/2025, 11:46. [facility], CR, XR CHEST 1V, 08/11/2025, 10:33. FINDINGS: Surgical changes and devices: Left chest generator device with leads projecting cephalad. Lungs and pleura: Lungs are clear. No pleural effusions or pneumothorax. Mediastinum: Mediastinal contours appear normal. Heart size is normal. Bones and chest wall: No suspicious bony lesions. Overlying soft tissues appear unremarkable. IMPRESSION: No acute cardiopulmonary abnormality is seen. Dictated by: Gareth Alexander M.D. on 08/27/2025 at 22:56 Approved by: Gareth Alexander M.D. on 08/27/2025 at 22:59
[2025-08-27 22:00] LABS: Add Manual Diff / Slide Review NO; Hematocrit 39.3 % (41-53); Hemoglobin 13.7 g/dL (13.5-17.5); Lymphocytes Absolute Auto 600 /uL (1100-4500); Mean Corpuscular HGB Conc 34.9 % (30-36); Mean Corpuscular Hemoglobin 30.7 PG (26-34); Mean Corpuscular Volume 87.9 fL (80-100); Platelet Count 129 X10^3/uL (150-400)
[2025-08-27 22:07] LABS: INR 1.0 (0.9-1.3); Prothrombin Time 11.4 SECONDS (9.4-12.5)
[2025-08-27 22:10] LABS: PTT Partial Thromboplastin Tim 27 SECONDS (25.1-36.5)
[2025-08-27 22:12] LABS: Appearance Urine UA CLEAR; Bilirubin Urine UA NEGATIVE (NEGATIVE); Color Urine UA YELLOW; Glucose Urine UA NEGATIVE (Negative); Ketones Urine UA NEGATIVE (NEGATIVE); Leukocyte Esterase Urine UA NEGATIVE (NEGATIVE); Nitrite Urine UA NEGATIVE (Negative); Occult Blood Urine UA NEGATIVE (Negative); Protein Urine UA NEGATIVE (Negative); Specific Gravity Urine UA 1.020 (1.000-1.035); Urobilinogen Urine UA 1.0 E.U./dL (0.2); pH Urine UA 6.5 (4.5-8.0)
[2025-08-27 22:12] LABS: Alanine Aminotransferase 9 IU/L (<50); Albumin 4.0 g/dL (3.5-5.0); Albumin Globulin Ratio 1.4 (1.0-2.8); Alkaline Phosphatase 81 U/L (38-126); Blood Urea Nitrogen 25 mg/dL (9-20); Calcium 9.0 mg/dL (8.4-10.2); Carbon Dioxide 26 mmol/L (22-32); Chloride 107 mmol/L (98-107); Creatine Kinase 30 U/L (55-170); Estimated Glomerular Filt Rate > 60 mL/min (>60); Globulin 2.8 g/dL (1.7-4.1); Glucose 110 mg/dL (70-99); HEMOLYSIS < 15 (0-50); Potassium 4.0 mmol/L (3.4-5.1); Sodium 138 mmol/L (137-145); Total Protein 6.8 g/dL (6.3-8.2)
[2025-08-27 22:21] LABS: Culture Indicated Urine Cult Not Indicated
[2025-08-27 22:23] LABS: Troponin I < 0.012 ng/mL (0.01-0.034)
== END 2025-08-27 23:44 | disposition home or self-care (01) ==
PROVIDERS: Emergency Provider Emergency Medicine; Family Provider Family Medicine; PCP Family Medicine
DX: R20.2 Paresthesia of skin (principal); I10 Essential (primary) hypertension; G20.A1 Parkinson's disease without dyskinesia, without mention of fluctuations; Z85.46 Personal history of malignant neoplasm of prostate; Z86.79 Personal history of other diseases of the circulatory system; C91.40 Hairy cell leukemia not having achieved remission
CPT/HCPCS: 36415; 70450; 71045; 80053; 81001; 82550; 84484; 85025; 85610; 85730; 93005; 99284